=== PATIENT | male | born 1950 | race Caucasian/White ===

== ENCOUNTER 2016-04-13 11:54 | Inpatient (IN) | payer OTHER ==
--- NOTE | 2016-04-13 12:25 | CPEKG ---
Heart Rate: 116 RR Interval: 517 QRSD Interval: 92 QT Interval: 340 QTC Interval: 473 QRS [place]: 42 T Wave [place]: 185 EKG Severity - ABNORMAL ECG - EKG Impression: ATRIAL FIBRILLATION EKG Impression: PROBABLE LVH WITH SECONDARY REPOL ABNRM EKG Impression: ANTERIOR Q WAVES, POSSIBLY DUE TO LVH EKG Impression: new T-wave inversions laterally EKG Impression: similar to previous Electronically Signed By: Atul Yanez 13-Apr-2016 13:06:26
[2016-04-13 12:34] LABS: % IMMATURE GRANULYOCYTES 0.6 % (0.0-1.1); ABSOLUTE IMMATURE GRANULOCYTES 0.09 10^3/uL (0.00-0.10); ADD DIFF? NO; ADD MORPH? NO; ADD SCAN? NO; ATYPICAL LYMPHOCYTE FLAG 0 (0-99); FRAGMENT RBC FLAG 0 (0-99); HEMATOCRIT 28.8 % (40.0-51.0); LEFT SHIFT FLG 0 (0-99); LIPEMIA HEMOLYSIS FLAG 80 (0-99); MEAN CELL HEMOGLOBIN 34.5 pg (27.9-34.1); MEAN CELL HEMOGLOBIN CONCENTR. 31.3 g/dL (32.4-36.7); MEAN CELL VOLUME 110.3 fL (81.5-99.8); MEAN PLATELET VOLUME 9.2 fL (8.7-11.7); PLATELET CLUMPS FLAG 10 (0-99); PLATELET COUNT 193 10^3/uL (150-400); RED BLOOD CELL COUNT 2.61 10^6/uL (4.40-6.38); RED CELL DISTRIBUTION WIDTH 16.8 % (11.5-15.2)
[2016-04-13 12:44] LABS: ANION GAP 15 mEq/L (8-16); CARBON DIOXIDE 26 mEq/l (22-31); CHLORIDE 100 mEq/L (97-110); CREATININE 4.2 mg/dL (0.7-1.3); GLOMERULAR FILTRATION RATE 14; GLUCOSE 84 mg/dL (70-100); POTASSIUM 5.2 mEq/L (3.5-5.2); SODIUM 141 mEq/L (134-144)
[2016-04-13] MEDS ORDERED: CEFEPIME HCL 2 GM in D5W 100 ML IV ONE (12:58)
--- NOTE | 2016-04-13 13:03 | EDPHY ---
H & P Stated Complaint: dc from [facility] increased sob hypoxia today Time Seen by Provider: 04/13/16 12:43 HPI/ROS: CHIEF COMPLAINT: Shortness of breath, fatigue HISTORY OF PRESENT ILLNESS: The patient is a 66-year-old man who comes to the emergency department complaining of increased shortness of breath and fatigue. He has a history of recurrent Pseudomonas and extended spectrum beta lactamase E coli pneumonia. He returned home from rehab 3 weeks ago for the same where he had been on a 21 day course of meropenem. He typically wears 2 L of oxygen intermittently but 2 days ago turned up to 4 L because he was short of breath. No fevers. Mild cough. He also has a history of chronic immunodeficiency requiring intermittent IVIG, status post renal transplant secondary to polycystic kidney disease, atrial fibrillation, anemia, deconditioning and hypertension. He got dialyzed yesterday and they took off 2 L which is normal. He states that his blood pressure is always a little low after dialysis typically in the 90 systolic. Today here it is in the 80s. REVIEW OF SYSTEMS: Constitutional: denies: chills, fever, recent illness, recent injury EENTM: denies: blurred vision, double vision, nose congestion Respiratory: See HPI Cardiac: denies: chest pain, irregular heart rate, lightheadedness, palpitations Gastrointestinal/Abdominal: denies: abdominal pain, diarrhea, nausea, vomiting, blood streaked stools Genitourinary: denies: dysuria, frequency, hematuria, pain Musculoskeletal: denies: joint pain, muscle pain Skin: denies: lesions, rash, jaundice, bruising Neurological: denies: headache, numbness, paresthesia, tingling, dizziness, weakness Hematologic/Lymphatic: denies: blood clots, easy bleeding, easy bruising Immunologic/allergic: denies: HIV/AIDS, transplant EXAM: GENERAL: Well-appearing, well-nourished and in no acute distress. HEAD: Atraumatic, normocephalic. EYES: Pupils equal round and reactive to light, extraocular movements intact, sclera anicteric, conjunctiva are normal. ENT: TMs normal, nares patent, oropharynx clear without exudates. Moist mucous membranes. NECK: Normal range of motion, supple without lymphadenopathy or JVD. LUNGS: Rhonchi both bases HEART: Regular rate and rhythm without murmurs, rubs or gallops. ABDOMEN: Soft, nontender, normoactive bowel sounds. No guarding, no rebound. No masses appreciated. BACK: No CVA tenderness, no spinal tenderness, step-offs or deformities EXTREMITIES: Normal range of motion, no pitting or edema. No clubbing or cyanosis. NEUROLOGICAL: Cranial nerves II through XII grossly intact. Normal speech, normal gait. 5/5 strength, normal movement in all extremities, normal sensation PSYCH: Normal mood, normal affect. SKIN: Warm, dry, normal turgor, no visible rashes or lesions. 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, esrd - dialysis pt - Family History Significant Family History: No pertinent family hx - Social History Smoking Status: Never smoked Alcohol Use: Sober Drug Use: None Constitutional: Initial Vital Signs Temperature (C) 36.4 C 04/13/16 12:01 Heart Rate 113 H 04/13/16 12:01 Respiratory Rate 27 H 04/13/16 12:01 Blood Pressure 83/76 L 04/13/16 12:01 O2 Sat (%) 87 L 04/13/16 12:01 O2 Delivery Mode Nasal Cannula O2 (L/minute) 4 Allergies/Adverse Reactions: Iodinated Contrast Media - Oral and [Iodinated Contrast Media - IV Dye] Allergy (Severe, Verified 04/13/16 12:00) Dyspnea IODINE CONTACT DYE Allergy (Severe, Uncoded 06/12/14 16:49) Dyspnea Home Medications: Medication Instructions Recorded Levalbuterol 1.25 mg [Xopenex 1 vial IH Q8 PRN 11/02/12 1.25MG Neb (*)] Zafirlukast [Accolate 20 MG] 20 mg PO BID 11/02/12 predniSONE 5 mg PO DAILY 05/22/15 Dapsone [Dapsone 100 mg (*)] 100 mg PO HS 08/28/15 Metoprolol Tartrate [Lopressor 25 25 mg PO BID 08/28/15 mg (*)] Immun Glob G (IgG)/Gly/Iga 50+ 25 gm IJ Q30D 11/10/15 [Gamunex-C 5 Gram/50 ml Vial] Tiotropium Inhaler [Spiriva 18 mcg IH HS 11/10/15 Handihaler] Calcium Acetate [Phoslo (*)] 1,334 mg PO TIDMEAL #90 cap 12/08/15 Budesonide [Pulmicort 0.25MG/2Ml 0.25 mg IH BID 12/12/15 Neb (*)] Amiodarone HCl [Pacerone (*)] 200 mg PO HS 02/15/16 Darbepoetin Cas in Polysorbat 40 mcg IJ WE 04/13/16 [Aranesp] Diazepam [Valium 5 MG (*)] 5 mg PO HS PRN 04/13/16 Folic Acid/Vitamin B Comp W-C 1 each PO HS 04/13/16 [Dialyvite Tablet] Hypertonic Saline 7% 1 inh IH 5XD PRN 04/13/16 Levalbuterol Inhaler [Xopenex Hfa 2 puffs IH BID 04/13/16 Inhaler (*)] Mometasone/Formoterol [Dulera 200 1 puffs IH BID 04/13/16 Mcg/5 Mcg Inhaler] Sodium Polystyrene Sulf [Kionex 10 gm PO DAILY PRN 04/13/16 SPS Powder (*)] hydrOXYzine HCL [hydrOXYzine HCL 25 mg PO BID 04/13/16 (RX)] Medical Decision Making - Diagnostics EKG Interpretation: An EKG obtained and was read and documented in trace view. Please see trace view for full reading and report. Atrial fibrillation rate of 116, LVH with repolarization abnormality, similar to previous new T-wave inversions laterally Imaging: X-ray: chest x-ray was obtained. I viewed the images myself on the PACS system. My interpretation of the images is: Bilateral lower lobe infiltrates improved from previous. The radiologist interpretation is pending. ED Course/Re-evaluation: 1:20 p.m. I discussed the case with Ana who will accept the patient for Dr. Alber in the ICU. The patient is septic however he will not receive the full 30 per kilos bolus because of his fluid restrictions and dialysis status. He has responded well to 1 L and will hold here. I have also began antibiotics. Hospital service agrees with this plan. 2:30 p.m. I discussed the case at the bedside with Dr. Reese. We discussed central line placement. The patient is not yet finished his fluid bolus and he does seem to be responding. She would prefer to place a PICC line upstairs. Differential Diagnosis: Partial list of the Differential diagnosis considered include but were not limited to; pneumonia, sepsis, CHF, acute coronary disease and although unlikely based on the history and physical exam, I also considered bacteremia, endocarditis,. - Data Points Laboratory Results: Laboratory Results 04/13/16 12:19 04/13/16 12:19 04/13/16 04/13/16 04/13/16 13:09 12:19 12:18 WBC 14.21 H 10^3/uL (3.80-9.50) RBC 2.61 L 10^6/uL (4.40-6.38) Hgb 9.0 L g/dL (13.7-17.5) Hct 28.8 L % (40.0-51.0) MCV 110.3 H fL (81.5-99.8) MCH 34.5 H pg (27.9-34.1) MCHC 31.3 L g/dL (32.4-36.7) RDW 16.8 H % (11.5-15.2) Plt Count 193 10^3/uL (150-400) MPV 9.2 fL (8.7-11.7) Neut % (Auto) 61.0 % (39.3-74.2) Lymph % (Auto) 26.3 % (15.0-45.0) [place] % (Auto) 5.6 % (4.5-13.0) Eos % (Auto) 5.8 % (0.6-7.6) Baso % (Auto) 0.7 % (0.3-1.7) Nucleat RBC Rel Count 0.0 % (0.0-0.2) Absolute Neuts (auto) 8.65 H 10^3/uL (1.70-6.50) Absolute Lymphs (auto) 3.74 H 10^3/uL (1.00-3.00) Absolute Monos (auto) 0.80 10^3/uL (0.30-0.80) Absolute Eos (auto) 0.83 H 10^3/uL (0.03-0.40) Absolute Basos (auto) 0.10 10^3/uL (0.02-0.10) Absolute Nucleated RBC 0.00 10^3/uL (0-0.01) Immature Gran % 0.6 % (0.0-1.1) Immature Gran # 0.09 10^3/uL (0.00-0.10) PT 13.5 SEC (12.0-15.0) INR 1.04 (0.83-1.16) VBG Lactic Acid 2.2 H mmol/L (0.7-2.1) Sodium 141 mEq/L (134-144) Potassium 5.2 mEq/L (3.5-5.2) Chloride 100 mEq/L (97-110) Carbon Dioxide 26 mEq/l (22-31) Anion Gap 15 mEq/L (8-16) BUN 45 H mg/dL (7-23) Creatinine 4.2 H mg/dL (0.7-1.3) Estimated GFR 14 Glucose 84 mg/dL (70-100) Calcium 9.0 mg/dL (8.5-10.4) Phosphorus 5.1 H mg/dL (2.5-4.5) Medications Given: Discontinued Medications Cefepime HCl 2 gm/ Dextrose 100 mls @ 200 mls/hr IV EDNOW ONE PRN Reason: Protocol Stop: 04/13/16 13:27 Last Admin: 04/13/16 13:39 Dose: 100 mls Sodium Chloride (Ns) 1,000 mls @ 0 mls/hr IV ONCE ONE PRN Reason: Wide Open Stop: 04/13/16 13:35 Last Admin: 04/13/16 13:35 Dose: 1,000 mls Sodium Chloride (Ns *For Sepsis Order Set Only*) 1,769 ml IV EDNOW ONE Stop: 04/13/16 13:44 Last Admin: 04/13/16 13:57 Dose: 769 ml Departure - Departure Disposition: [facility] Inpatient Acute Clinical Impression: Chronic pneumonia, Severe sepsis with septic shock Condition: Fair
--- NOTE | 2016-04-13 13:10 | DX ---
Chest, PA and Lateral History: Dyspnea, cough, weakness Comparison: March 09, 2016 Findings: Bibasilar consolidation is again present and associated with what is likely bronchitis/bron chiectasis. A left pleural effusion and prior increased left lower lobe consolidation have significa ntly improved.. Interstitial changes in the lower lungs remain. Sparse vessels in each upper lung are consistent with underlying severe emphysema. Heart size is stable and mildly enlarged. The pulmonary vascularity is not plethoric. A double lumen right central venous catheter is present with tip overl sixto the cavoatrial junction region. Median sternotomy wires, valve replacement and CABG clips again overlie the heart. EKG leads overlie the chest. Impression: 1. Improved left lower lobe consolidation and pleural effusion. No acute pneumonia identified. 2. Suspect underlying lower lung zone pulmonary fibrosis and bronchitis. 3. Chronic severe emphysema.
[2016-04-13] MEDS ORDERED: NS 1,000 ML IV ONE (13:34)
[2016-04-13] MEDS ORDERED: NS 1,000 ML BAG *FOR SEPSIS ORDER SET ONLY IV ONE (13:43)
[2016-04-13] MEDS ORDERED: ONDANSETRON DISINTEGRATING 4 MG TAB PO PRN (14:02)
[2016-04-13] MEDS ORDERED: ACETAMINOPHEN 325 MG TAB PO PRN (14:02)
[2016-04-13] MEDS ORDERED: ONDANSETRON 4 MG/2 ML VIAL IVP PRN (14:02)
[2016-04-13 14:17] LABS: LACGHOST ORDER
[2016-04-13 14:22] LABS: INR 1.04 (0.83-1.16); PROTIME(PATIENT) 13.5 SEC (12.0-15.0)
[2016-04-13] MEDS ORDERED: ALTEPLASE 2 MG VIAL IVP PRN (14:47)
--- NOTE | 2016-04-13 15:19 | SOAPPROG ---
SOAP Progress Note Assessment/Plan: Assessment: 1)ESRD -anticipate next HD Friday but will assess daily for needs (hold tonight) -RIJ TDC for access 2)SOB on chronic hypoxic resp failulre -uses 4L O2 by NE chronically-> currently on 2l O2 by NE -recent prolonged admit for ESBL Ecoli and pseudomonas pneumonia- recent 21 day course of Meropenem -CXR stable- no acute change -rapid flu pending 3)hypotension -improved with IVF, lactate better 1.0 -infectious work up in progress, on sepsis protocol in ICU 4)Anemia of CKD -Hb at goal -on Aranesp weekly- will verify dose 5)Mild hyperkalemia- K 5.2 -follow labs- recheck tonight to ensure stable -renal diet 6)MBD -phos at goal, continue Ca Acetate binder 7)A fib 8)Hypogammaglobulinemia -receives monthly IVIG I discussed with hospitalist Marisol Vuong MD [facility] [phone] pager 04/13/16 16:01 Subjective: 66 M with ESRD (HD MWF), recent prolonged admission for ESBL E coli and pseudomonas pneumonia (21 day course of meropenem), prolonged LTAC stay through mid March. Now presents with sob, weakness, hypotension. Denies fevers, n/v, diarrhea. Did not eat much today. Had HD yesterday and reports "usual amount of fluid removed, " no issues on HD yesterday. Has RIJ TDC in place and denies any drainage from catheter, fevers. Using 4L O2 chronically at home- now on 2L. Had lactate 2.2 and was hypotensive in the ER and given IV fluids- improved now and lactate down to 1.0. He has h/o hypogammaglobulinemia and receives IVIG. Objective: Vital Signs Temp Pulse Resp BP Pulse Ox 36.6 C 96 16 92/47 L 95 04/13/16 14:00 04/13/16 14:00 04/13/16 14:00 04/13/16 14:00 04/13/16 14:00 04/12/16 04/13/16 04/14/16 05:59 05:59 05:59 Intake Total 1700 Balance 1700 PT 13.5 SEC (12.0-15.0) 02/04/17 12:19 INR 1.04 (0.83-1.16) 04/13/16 12:19 Physical Exam - Physical Exam General Appearance: no apparent distress, other (chronically ill) EENT: other (mmm) Neck: other (RIJ tunneled HD cath c/d/i) Respiratory: other (coarse bs bilat) Cardiac/Chest: regular rate, rhythm, other (no rub) Abdomen: normal bowel sounds, non-tender, soft Skin: warm/dry Extremities: other (no edema) Neuro/Psych: alert, oriented x 3 ICD10 Worksheet Patient Problems: Problems Problem Status Diagnosed Chronic Disease Mgmt/Transitional Care Acute Chronic pneumonia Acute ESBL (extended spectrum beta-lactamase) producing bacteria infection Acute 02/27 Hypotension Acute Lung infiltrate Acute Severe sepsis Acute Shortness of breath Acute VRE (vancomycin-resistant Enterococci) Acute 01/11/16 Anemia Acute CHF (congestive heart failure) Acute Chronic renal failure Acute Extended spectrum beta lactamase (ESBL) resistance Acute 02/15/16 Fever Acute History of pneumonia Acute Hypoxemia Acute Hypoxia Acute Mitral valve replaced Acute Palliative care encounter Acute Pneumonia Acute Pneumonia due to Pseudomonas Acute Renal failure Acute Renal transplant recipient Acute Sepsis Acute Weakness Acute
[2016-04-13] MEDS ORDERED: [UNRECOGNIZED DRUG - OTHER] IH PRN (15:36)
[2016-04-13] MEDS ORDERED: HEPARIN 10,000 UNIT/10 ML MDV IVP ONE (15:57)
[2016-04-13] MEDS ORDERED: HEPARIN 10,000 UNIT/10 ML MDV ONE (16:04)
--- NOTE | 2016-04-13 16:20 | GHP ---
[f rep st] HISTORY AND PHYSICAL DATE OF ADMISSION: 04/13/2016 CHIEF COMPLAINT: Septic shock. HISTORY OF PRESENT ILLNESS: The patient is a 66-year-old male with history of end-stage renal disease on dialysis, recurrent ESBL/pseudomonal pneumonia, bronchiectasis, who was recently hospitalized at [facility] from 02/25/2016 through 03/09/2016. At that time, he was treated for recurrent pneumonia and completed a 21-day course of meropenem with aggressive pulmonary therapy. He was then discharged to [facility]. He was discharged there on March 23 and states that he has been doing fairly well up until the last couple days. Over the past 2 days, he has had increased weakness. He has been coughing with loose yellow sputum, which is chronic for him. He does say he is having a little bit more sputum production. He had increased shortness of breath this morning when he was getting dressed. He denies fevers, chills, or sweats. No nausea, vomiting, diarrhea. No headache. No myalgias. He has had some dizziness. He has been more fatigued and sleeping more. Denies bleeding. Denies ill contacts. Has increased his oxygen to 4 L. Usually wears 2 at home. Denies chest pain. REVIEW OF SYSTEMS: I completed a 10-point review of systems. Negative except as noted in HPI. PAST MEDICAL HISTORY: 1. History of paroxysmal atrial fibrillation; was in normal sinus rhythm at last admission. Now recurrent. 2. End-stage renal disease on hemodialysis, Friday, Friday, and Friday. Last time Friday. 3. Recurrent ESBL/pseudomonal pneumonia. 4. Bronchiectasis. 5. Chronic hypoxemic respiratory failure. 6. Status post renal transplant. 7. Chronic immunodeficiency requiring intermittent IVIG. 8. Anemia of chronic disease. 9. Deconditioning. 10. Benign hypertension. 11. Dysphagia. 12. Esophagitis, mild dysmotility noted on esophagram February 2016. 13. Severe TR and [id number] pulmonary hypertension. PAST SURGICAL HISTORY: 1. Cardioversion for atrial fibrillation. 2. History of kidney transplant. 3. Mitral valve repair. FAMILY HISTORY: PCKD. SOCIAL HISTORY: Lives alone. Does not use alcohol, tobacco, or illicits. ALLERGIES: Iodine contrast. MEDICATIONS: 1. Prednisone 5 mg daily. 2. Hydroxyzine 25 mg b.i.d. 3. Zafirlukast 20 mg b.i.d. 4. Spiriva. 5. Sodium polystyrene. 6. Dulera 200/5 mcg 1 puff b.i.d. 7. Lopressor 25 mg b.i.d. 8. Xopenex inhalers. 9. Xopenex nebs p.r.n. 10. Gamunex q.30 days. 11. Dialyvite tablet daily. 12. Valium 5 mg q.h.s. p.r.n. 13. Darbepoetin 40 mcg weekly. 14. Dapsone 100 mg q.h.s. 15. Calcium acetate 1334 mg p.o. t.i.d. meals. 16. Pulmicort nebs b.i.d. 17. Amiodarone 200 mg at bedtime. PHYSICAL EXAM: VITAL SIGNS: Temperature at 36.4, blood pressure 75/42, now 92/ 47. Heart rate 96-113. Respirations 16-22. 95% on 4 L. GENERAL: Patient is ill-appearing, pale. No acute distress. HEENT: PERRLA. Conjunctival pallor. Oropharynx clear without exudate or erythema. CV: Irregular, irregular, with systolic murmur. LUNGS: decreased BS and rhonchi LL basei. ABDOMEN: Soft, mild tenderness right lower quadrant. : No Nath. MUSCULOSKELETAL: Moving all 4 extremities. Tunneled catheter with no surrounding erythema, purulence NEURO: 2-12 intact. PSYCH: Alert and oriented x3. Flat affect. LABS: WBC 14, hemoglobin 9, hematocrit 28, MCV 110, platelets 193. Coags within normal. Sodium 141, potassium 5.2, chloride 100, carbon dioxide 26, BUN 45, creatinine 4.2. Phos pending. UA pending. Influenza pending. DIAGNOSTIC DATA: Chest x-ray personally reviewed by me. Improved left lower lobe infiltrate. Small left-side pleural effusion. Emphysematous changes. Sternotomy wires. EKG is personally reviewed by me. Heart rate 116, AFib, LVH with repolarization. ASSESSMENT/PLAN: 1. Septic shock: elevated white count of 14, but afebrile. Possibly pulmonary source, but improved from prior. He recently completed 21-day course of meropenem in March. I will cover for HCAP, given recent hospitalization with vancomycin and meropenem with extended spectrum beta-lactamase history. Check influenza, UA. Denies diarrhea. Receiving IV fluids. A PICC line to be placed. Sepsis protocol. 2. Hypotension: infection vs. cardiac. Infectious plan as above. He now in a fib (NSR in 02/22). s/p cardioversion x 3, most recently Dec 2015. Amio-load 400mg BID, heparin gtt. Discussed with cards for SAMINA cardioversion. 3. End-stage renal disease: Nephrology consultation. Last dialysis on Friday , K okay. Continue Nephro-Dorina and PhosLo. Weekly darbepoetin. 4. Anemia of chronic disease: H and H is stable. 5.Paroxysmal atrial fibrillation: The patient was in normal sinus rhythm in February. Amio-load, hep gtt. Hold beta nat with hypotension. 6. History of bronchiectasis. Continue home inhalers. 7. History of renal transplant. Continue Dapsone, pred. Was tapered off Prograf with recurrent infections 8. Lactic acidosis: hypotension, repleting with IV fluids. 9. Chronic immunodeficiency: IgG pending 9. Diet: Renal. 10. Deep venous thrombosis prophylaxis: Subcu heparin. DISPOSITION: Patient warrants ICU admission with septic shock. IV fluids, IV antibiotics. /[id number]/MODL MTDD
[2016-04-13 16:31] LABS: % IMMATURE GRANULYOCYTES 0.4 % (0.0-1.1); ABSOLUTE IMMATURE GRANULOCYTES 0.04 10^3/uL (0.00-0.10); ADD DIFF? NO; ADD MORPH? NO; ADD SCAN? NO; ATYPICAL LYMPHOCYTE FLAG 0 (0-99); FRAGMENT RBC FLAG 0 (0-99); HEMATOCRIT 23.8 % (40.0-51.0); HEMOGLOBIN 7.4 g/dL (13.7-17.5); LEFT SHIFT FLG 0 (0-99); LIPEMIA HEMOLYSIS FLAG 80 (0-99); MEAN CELL HEMOGLOBIN 34.6 pg (27.9-34.1); MEAN CELL HEMOGLOBIN CONCENTR. 31.1 g/dL (32.4-36.7); MEAN CELL VOLUME 111.2 fL (81.5-99.8); MEAN PLATELET VOLUME 9.1 fL (8.7-11.7); PLATELET CLUMPS FLAG 0 (0-99); PLATELET COUNT 172 10^3/uL (150-400); RED BLOOD CELL COUNT 2.14 10^6/uL (4.40-6.38); RED CELL DISTRIBUTION WIDTH 16.8 % (11.5-15.2)
[2016-04-13 16:49] LABS: ANION GAP 12 mEq/L (8-16); CALCIUM 7.8 mg/dL (8.5-10.4); CARBON DIOXIDE 23 mEq/l (22-31); CHLORIDE 105 mEq/L (97-110); CREATININE 4.2 mg/dL (0.7-1.3); GLOMERULAR FILTRATION RATE 14; GLUCOSE 102 mg/dL (70-100); POTASSIUM 4.7 mEq/L (3.5-5.2); SODIUM 140 mEq/L (134-144)
--- NOTE | 2016-04-13 17:20 | IR ---
Imaging Guided Peripherally Inserted Central Catheter History: Renal failure, hypotension, sepsis. Technique: Following informed consent, the left arm was prepped and draped in sterile fashion. All el ements of maximal sterile barrier technique including cap, mask, sterile gown, sterile gloves, large sterile sheet, hand hygiene, and 2% chlorhexidine for cutaneous antisepsis, followed. Ultrasound guzman sducer was placed in sterile sleeve and sterile coupling gel was used. Ultrasound evaluation of poten tial access sites was performed. After successfully identifying a patent vessel of adequate size, 1% Xylocaine was used for local anesthetic. Ultrasound guidance was used to puncture the basilic vein w ith a 21-gauge needle. 0.018 measuring wire was passed centrally under fluoroscopic control. A skin n ick with scalpel blade was followed by removing the access needle. A 5.5 American peel-away sheath was followed by a 5-American double lumen central catheter, trimmed to 43 cm length. The tip of the cathete r was positioned centrally and the guidewire removed. AP fluoroscopic spot image was obtained in insp iration. The catheter irrigated easily. The hub of the catheter was secured to the skin using a StatL ock adhesive device, and a sterile dressing was applied. Fluoroscopy time in minutes: 0.1 . Estimated exposure in mGy: 1.4 . Findings: The tip of the central catheter terminates at the junction of the superior vena cava and th e right atrium. Tunneled right jugular dialysis catheter, sternotomy wires, metallic ring for mitral valve repair, and surgical clips overlie the heart. Bilateral pulmonary abnormalities are better disp layed on portable chest radiograph obtained previously today. Impression: 5-American double lumen peripherally inserted central catheter is ready to use. - - - - - - - - - - - - - - - - - - - - - - - - - - - - - - - - - - - - - - - - - (Cross-cutting measures: Current medications were listed in the medical record, including all known prescriptions, [id number] medications, herbal medications, and nutritional supplements. The pat ient does not smoke. ) IR call
[2016-04-13 17:50] LABS: APTT 35.7 SEC (23.0-38.0); INR 1.14 (0.83-1.16); PROTIME(PATIENT) 14.5 SEC (12.0-15.0)
[2016-04-13] MEDS: HEPARIN/DEXTROSE 500 ML IV SCH (18:03)
[2016-04-13] MEDS: MONTELUKAST SODIUM 10 MG TAB PO SCH (18:04)
[2016-04-13] MEDS: CALCIUM ACETATE 667 MG CAP PO SCH (18:04)
[2016-04-13] MEDS: MEROPENEM 500 MG in NS 100 ML IV SCH ×2 (18:04→19:48)
[2016-04-13 18:08] LABS: POTASSIUM 4.5 mEq/L (3.5-5.2)
[2016-04-13] MEDS ORDERED: HEPARIN 50,000 UNIT/10 ML VIAL ONE (20:00)
[2016-04-13] MEDS: TIOTROPIUM INHALER 18 MCG/DOSE 5 DOSE/MDI IH SCH (20:38)
[2016-04-13] MEDS: BUDESONIDE 0.25MG/2ML DEYVIAL (5/POUCH) IH SCH (20:38)
[2016-04-13] MEDS: LEVALBUTEROL INHALER 200 PUFFS/15 GM MDI IH SCH (20:40)
[2016-04-13] MEDS ORDERED: AMIODARONE HCL 200 MG TAB PO SCH (21:00)
[2016-04-13] MEDS ORDERED: VITAMIN B COMP W C PO SCH (21:00)
[2016-04-13] MEDS ORDERED: FOLIC ACID PO SCH (21:00)
[2016-04-13] MEDS: VANCOMYCIN 750 MG in D5W 150 ML IV SCH (21:32)
[2016-04-13] MEDS: AMIODARONE HCL 200 MG TAB PO SCH (21:34)
[2016-04-13] MEDS: hydrOXYzine HCL 25 MG TAB PO SCH (21:34)
[2016-04-13] MEDS: DAPSONE 100 MG TAB PO SCH (21:34)
[2016-04-13] MEDS: Mometasone/Formoterol [Dulera 200 Mcg/5 Mcg Inhaler] IH SCH (21:36)
[2016-04-13] MEDS ORDERED: HEPARIN 5,000 UNIT/0.5 ML SYR SC SCH (22:00)
[2016-04-13] MEDS: DIAZEPAM 5 MG TAB PO PRN (22:18)
[2016-04-14] MEDS: HEPARIN 10,000 UNIT/10 ML MDV IVP PRN ×2 (01:40→06:44)
[2016-04-14] MEDS ORDERED: NS 250 ML IV ONE (05:00)
[2016-04-14 05:31] LABS: HEMATOCRIT 21.7 % (40.0-51.0); MEAN CELL HEMOGLOBIN 34.9 pg (27.9-34.1); MEAN CELL HEMOGLOBIN CONCENTR. 30.9 g/dL (32.4-36.7); RED BLOOD CELL COUNT 1.92 10^6/uL (4.40-6.38); RED CELL DISTRIBUTION WIDTH 16.7 % (11.5-15.2)
[2016-04-14 05:40] LABS: HEMOGLOBIN 6.7 g/dL (13.7-17.5)
[2016-04-14 06:02] LABS: ANION GAP 14 mEq/L (8-16); CALCIUM 7.8 mg/dL (8.5-10.4); CARBON DIOXIDE 22 mEq/l (22-31); CHLORIDE 104 mEq/L (97-110); GLOMERULAR FILTRATION RATE 12; GLUCOSE 80 mg/dL (70-100); POTASSIUM 4.5 mEq/L (3.5-5.2); SODIUM 140 mEq/L (134-144)
[2016-04-14] MEDS: predniSONE 5 MG TAB PO SCH (09:04)
[2016-04-14] MEDS: CALCIUM ACETATE 667 MG CAP PO SCH ×3 (09:04→18:33)
[2016-04-14] MEDS: AMIODARONE HCL 200 MG TAB PO SCH ×2 (09:05→20:25)
[2016-04-14] MEDS: hydrOXYzine HCL 25 MG TAB PO SCH ×2 (09:05→20:25)
[2016-04-14] MEDS: MEROPENEM 500 MG in NS 100 ML IV SCH (09:05)
[2016-04-14] MEDS: BUDESONIDE 0.25MG/2ML DEYVIAL (5/POUCH) IH SCH ×2 (10:04→19:34)
[2016-04-14] MEDS: LEVALBUTEROL INHALER 200 PUFFS/15 GM MDI IH SCH ×2 (10:05→19:34)
[2016-04-14] MEDS: Mometasone/Formoterol [Dulera 200 Mcg/5 Mcg Inhaler] IH SCH ×2 (10:13→22:17)
--- NOTE | 2016-04-14 11:06 | SOAPPROG ---
SOAP Progress Note Assessment/Plan: Assessment: 1)ESRD- HD MWF schedule -next HD tomorrow (may bump to Friday depending on timing of cardioversion- we will work around cardiology schedule) -RI TDC for access 2)SOB on chronic hypoxic resp failulre -uses 4L O2 by [place] chronically-> currently on 4L O2 by [place] -recent prolonged admit for ESBL Ecoli and pseudomonas pneumonia- recent 21 day course of Meropenem -CXR stable- no acute change -rapid flu negative -?A fib related- plans for cardioversion/SAMINA in am by cardiology 3)hypotension -improved with IVF, lactate better 1.0 -infectious work up in progress, on sepsis protocol in ICU 4)Anemia of CKD -Hb dropped overnight without obvious bleeding (?dilutional from IVF)- getting PRBCs now -on Aranesp weekly- will verify dose in am from unit (I believe he has been on high dose) 5)Mild hyperkalemia- K 5.2 on admit -stable at 4.5 today -renal diet when taking po 6)MBD -continue Ca Acetate binder 7)A fib -plans for cardioversion/SAMINA in am 8)Hypogammaglobulinemia -receives monthly IVIG I discussed with hospitalist and RN Marisol Vuong MD [facility] [phone] pager 04/14/16 12:01 Subjective: Getting PRBCs right now. Feels weak but SOB better. BP still on lower side-80s- 90s. No fevers. On 4L 02 by [place] (baseline). Cardiology planning SAMINA and cardioversion tomorrow. Objective: Vital Signs Temp Pulse Resp BP Pulse Ox 36.4 C 97 21 H 91/46 L 93 04/14/16 00:00 04/14/16 10:21 04/14/16 10:21 04/14/16 09:00 04/14/16 10:21 Laboratory Results 04/14/16 04:55 04/14/16 04:55 04/13/16 04/14/16 04/15/16 05:59 05:59 05:59 Intake Total 3761.4 Balance 3761.4 PT 14.5 SEC (12.0-15.0) 04/13/16 17:33 INR 1.14 (0.83-1.16) 04/13/16 17:33 Physical Exam - Physical Exam General Appearance: alert, no apparent distress EENT: other (mmm) Neck: other (RIJ TDC) Respiratory: lungs clear Cardiac/Chest: irregularly irregular, other (no rub) Abdomen: normal bowel sounds, non-tender, soft Skin: warm/dry Extremities: other (no edema) Neuro/Psych: alert, oriented x 3 ICD10 Worksheet Patient Problems: Problems Problem Status Diagnosed Chronic Disease Mgmt/Transitional Care Acute Chronic pneumonia Acute ESBL (extended spectrum beta-lactamase) producing bacteria infection Acute 02/27 Hypotension Acute Lung infiltrate Acute Severe sepsis Acute Shortness of breath Acute VRE (vancomycin-resistant Enterococci) Acute 01/11/16 Anemia Acute CHF (congestive heart failure) Acute Chronic renal failure Acute Extended spectrum beta lactamase (ESBL) resistance Acute 02/15/16 Fever Acute History of pneumonia Acute Hypoxemia Acute Hypoxia Acute Mitral valve replaced Acute Palliative care encounter Acute Pneumonia Acute Pneumonia due to Pseudomonas Acute Renal failure Acute Renal transplant recipient Acute Sepsis Acute Weakness Acute
--- NOTE | 2016-04-14 11:14 | HOSPPROG ---
Hospitalist Progress Note Assessment/Plan: #Hypotension: initially thought infectious, rather think due to recurrent a fib. Flu negative. Blood cx, NGTD. Cont gentle IVFs #Recurrent atrial fib: PO amiodarone load, heparin gtt. Cards to do SAMINA- cardioversion tomorrow or Tues. #Chronic hypoxic resp failure: CXR improved from priors. Afebrile #ESRD: cont HD per renal #Anemia of chronic disease: H/H dropped today, but no e/o bleeding. Suspect hemoconcentrated at admission. Transfuse 1 unit RBC. Serial CBC #ESBL/Pseudomonal PNA: chronic, does seem acute infection. On Vanc/meropenem for now #h/o renal transplant: dapsone #Chronic immunodeficiency: intermittent IVIG. IgG level pending #Diet: renal #DVT ppx: SCDs #Disp: warrants inpatient admission with recurrent a fib, hypotension Subjective: denies any bleeding. No dizziness or SOB Objective: Vital Signs Temp Pulse Resp BP Pulse Ox 36.4 C 97 21 H 91/46 L 93 04/14/16 00:00 04/14/16 10:21 04/14/16 10:21 04/14/16 09:00 04/14/16 10:21 Laboratory Results 04/14/16 04:55 04/14/16 04:55 04/13/16 04/14/16 04/15/16 05:59 05:59 05:59 Intake Total 3761.4 Balance 3761.4 PT 14.5 SEC (12.0-15.0) 04/13/16 17:33 INR 1.14 (0.83-1.16) 04/13/16 17:33 - Physical Exam Constitutional: chronically ill appearing, other (pale) Eyes: PERRL Ears, Nose, Mouth, Throat: dry mucous membranes Cardiovascular: irregularly irregular Respiratory: no respiratory distress, rhonchi (Left lower base) Gastrointestinal: normoactive bowel sounds, soft, non-tender abdomen Genitourinary: no bladder fullness Skin: warm Musculoskeletal: full muscle strength Neurologic: AAOx3 Psychiatric: interacting appropriately, flat affect ICD10 Worksheet Patient Problems: Problems Problem Status Diagnosed Chronic Disease Mgmt/Transitional Care Acute Chronic pneumonia Acute ESBL (extended spectrum beta-lactamase) producing bacteria infection Acute 02/27 Hypotension Acute Lung infiltrate Acute Severe sepsis Acute Shortness of breath Acute VRE (vancomycin-resistant Enterococci) Acute 01/11/16 Anemia Acute CHF (congestive heart failure) Acute Chronic renal failure Acute Extended spectrum beta lactamase (ESBL) resistance Acute 02/15/16 Fever Acute History of pneumonia Acute Hypoxemia Acute Hypoxia Acute Mitral valve replaced Acute Palliative care encounter Acute Pneumonia Acute Pneumonia due to Pseudomonas Acute Renal failure Acute Renal transplant recipient Acute Sepsis Acute Weakness Acute
[2016-04-14] MEDS ORDERED: NS 1,000 ML IV SCH (11:15)
--- NOTE | 2016-04-14 11:21 | PDCARCONS ---
Cardiology Consult Reason for Consult: Atrial fibrillation Chief Complaint: Weakness and fatigue Requesting Physician: Hospitalists History of Present Illness: Patient is a 66 y/o male with multiple admissions to [facility] over the past several months, who presented yesterday with findings suggestive of septic shock ( hypotension and tachycardia). Further work up over night with belief that atrial fibrillation is the cause of the symptoms being noted. Uncertain on the duration of the arrhythmia at present. Heparin was started for CVA prophylaxis. Ongoing anemia (thought to be secondary to renal disease) and plans for haemodialysis tomorrow (he is a Mon/Wed/Fri scheduled patient). History of ESRD with aforementioned HD, but history of failed renal transplant, pneumonia, and MVr. No complaints of chest pains or pressure today. No PND or orthopnea. Awareness of arrhythmia with weakness and fatigue. Patient reports that he is feeling better today. Historically, the patient has had cardioversions for atrial fibrillation. [id number] score is 1 for age. History Information - Allergies/Home Medication List Allergies/Adverse Reactions: Iodinated Contrast Media - Oral and [Iodinated Contrast Media - IV Dye] Allergy (Severe, Verified 04/13/16 12:00) Dyspnea IODINE CONTACT DYE Allergy (Severe, Uncoded 06/12/14 16:49) Dyspnea Home Medications: Levalbuterol 1.25 mg [Xopenex 1.25MG Neb (*)] 1 vial IH Q8 PRN 11/02/12 [Last Taken 02/14/16 08:00] Zafirlukast [Accolate 20 MG] 20 mg PO BID 11/02/12 [Last Taken 04/13/16] predniSONE 5 mg PO DAILY 05/22/15 [Last Taken 04/13/16] Dapsone [Dapsone 100 mg (*)] 100 mg PO HS 08/28/15 [Last Taken 04/12/16] Metoprolol Tartrate [Lopressor 25 mg (*)] 25 mg PO BID 08/28/15 [Last Taken 06/24] Immun Glob G (IgG)/Gly/Iga 50+ [Gamunex-C 5 Gram/50 ml Vial] 25 gm IJ Q30D 11/09 [Last Taken 01/16/16] Tiotropium Inhaler [Spiriva Handihaler] 18 mcg IH HS 11/10/15 [Last Taken ] Budesonide [Pulmicort 0.25MG/2Ml Neb (*)] 0.25 mg IH BID 12/12/15 [Last Taken ] Amiodarone HCl [Pacerone (*)] 200 mg PO HS 02/15/16 [Last Taken 04/13/16] Darbepoetin Cas in Polysorbat [Aranesp] 40 mcg IJ WE 04/13/16 [Last Taken Unknown] Diazepam [Valium 5 MG (*)] 5 mg PO HS PRN 04/13/16 [Last Taken Unknown] Folic Acid/Vitamin B Comp W-C [Dialyvite Tablet] 1 each PO HS 04/13/16 [Last Taken 04/12/16] Hypertonic Saline 7% 1 inh IH 5XD PRN 04/13/16 [Last Taken 04/09/16] Levalbuterol Inhaler [Xopenex Hfa Inhaler (*)] 2 puffs IH BID 04/13/16 [Last Taken 04/13/16] Mometasone/Formoterol [Dulera 200 Mcg/5 Mcg Inhaler] 1 puffs IH BID 04/13/16 [ Last Taken 04/13/16] Sodium Polystyrene Sulf [Kionex SPS Powder (*)] 10 gm PO DAILY PRN 04/13/16 [ Last Taken Unknown] hydrOXYzine HCL [hydrOXYzine HCL (RX)] 25 mg PO BID 04/13/16 [Last Taken ] I have personally reviewed and updated: family history, medical history, social history, surgical history - Past Medical History atrial fibrillation, ESRD, pneumonia - Surgical History Additional surgical history: MVr and renal transplant - Family History Positive for: non-pertinent - Social History Smoking Status: Never smoked Alcohol Use: Sober Drug Use: None Cardiac History - Cardiac History Cardiac Risk Factors: age > 65, male Timing/Duration: Unsure Severity: moderate Severity Scale: 4 Modifying Factors: improves with: lying down, oxygen, rest Associated Symptoms: malaise, shortness of breath, weakness Age in Years: < 65 Sex: Male Congestive Heart Failure History: No Hypertension History: No Stroke/TIA/Thromboembolism History: No Vascular Disease History: No Diabetes Mellitus: No [id number] Score: 5 Physical Exam Temp Pulse Resp BP Pulse Ox 36.4 C 97 21 H 91/46 L 93 04/14/16 00:00 04/14/16 10:21 04/14/16 10:21 04/14/16 09:00 04/14/16 10:21 O2 (L/minute) 4 Constitutional: chronically ill appearing Eyes: PERRL Ears, Nose, Mouth, Throat: moist mucous membranes Cardiovascular: irregularly irregular, No JVD Peripheral Pulses: 2+: dorsalis-pedis (R), dorsalis-pedis (L) Respiratory: no respiratory distress, reduced air movement Gastrointestinal: normoactive bowel sounds Skin: warm, No erythema, No rash Musculoskeletal: full muscle strength Neurologic: AAOx3, sensation intact bilaterally, weakness, CN II-XII Intact Psychiatric: interacting appropriately Lab and Imaging 04/14/16 04:55 04/14/16 04:55 WBC 8.77 10^3/uL (3.80-9.50) 04/14/16 04:55 RBC 1.92 10^6/uL (4.40-6.38) L 04/14/16 04:55 Hgb 6.7 g/dL (13.7-17.5) L 04/14/16 04:55 Hct 21.7 % (40.0-51.0) L 04/14/16 04:55 MCV 113.0 fL (81.5-99.8) H 04/14/16 04:55 MCH 34.9 pg (27.9-34.1) H 04/14/16 04:55 MCHC 30.9 g/dL (32.4-36.7) L 04/14/16 04:55 RDW 16.7 % (11.5-15.2) H 04/14/16 04:55 Plt Count 165 10^3/uL (150-400) 04/14/16 04:55 MPV 9.1 fL (8.7-11.7) 04/13/16 16:20 Neut % (Auto) 57.2 % (39.3-74.2) 04/13/16 16:20 Lymph % (Auto) 29.4 % (15.0-45.0) 04/13/16 16:20 [place] % (Auto) 6.0 % (4.5-13.0) 04/13/16 16:20 Eos % (Auto) 6.6 % (0.6-7.6) 04/13/16 16:20 Baso % (Auto) 0.4 % (0.3-1.7) 04/13/16 16:20 Nucleat RBC Rel Count 0.0 % (0.0-0.2) 04/13/16 16:20 Absolute Neuts (auto) 5.25 10^3/uL (1.70-6.50) 04/13/16 16:20 Absolute Lymphs (auto) 2.70 10^3/uL (1.00-3.00) 04/13/16 16:20 Absolute Monos (auto) 0.55 10^3/uL (0.30-0.80) 04/13/16 16:20 Absolute Eos (auto) 0.61 10^3/uL (0.03-0.40) H 04/13/16 16:20 Absolute Basos (auto) 0.04 10^3/uL (0.02-0.10) 04/13/16 16:20 Absolute Nucleated RBC 0.00 10^3/uL (0-0.01) 04/13/16 16:20 Immature Gran % 0.4 % (0.0-1.1) 04/13/16 16:20 Immature Gran # 0.04 10^3/uL (0.00-0.10) 04/13/16 16:20 PT 14.5 SEC (12.0-15.0) 04/13/16 17:33 INR 1.14 (0.83-1.16) 04/13/16 17:33 APTT 35.7 SEC (23.0-38.0) 04/13/16 17:33 Heparin Anti-Xa, Unfract 0.17 IU/mL (0.32-0.67) L 04/14/16 04:55 ABG Lactic Acid 1.0 mmol/L (0.5-1.6) 04/13/16 14:40 VBG Lactic Acid 1.3 mmol/L (0.7-2.1) 04/13/16 16:23 Sodium 140 mEq/L (134-144) 04/14/16 04:55 Potassium 4.5 mEq/L (3.5-5.2) 04/14/16 04:55 Chloride 104 mEq/L (97-110) 04/14/16 04:55 Carbon Dioxide 22 mEq/l (22-31) 04/14/16 04:55 Anion Gap 14 mEq/L (8-16) 04/14/16 04:55 BUN 52 mg/dL (7-23) H 04/14/16 04:55 Creatinine 5.0 mg/dL (0.7-1.3) H 04/14/16 04:55 Estimated GFR 12 04/14/16 04:55 Glucose 80 mg/dL (70-100) 04/14/16 04:55 Calcium 7.8 mg/dL (8.5-10.4) L 04/14/16 04:55 Phosphorus 6.2 mg/dL (2.5-4.5) H D 04/14/16 04:55 Influenza A & B (PCR) NEGATIVE FOR FLU (NEGATIVE) 04/13/16 21:45 Patient ABO/Rh A POSITIVE 04/14/16 09:48 Antibody Screen NEGATIVE 04/14/16 09:48 Crossmatch IS Only See Detail 04/14/16 09:48 Visualized and Interpreted Chest x-ray results: Yes Chest X-ray Interpretation: no infiltrate, effusion Visualized and Interpreted EKG results: Yes EKG Interpretation: Positive for: other (atrial fibrillation with rapid ventricular response) Telemetry: atrial fibrillation A/P Assessment: Patient is a 66 y/o male with extensive past medical history, including failed renal transplant, ongoing ESRD with HD three times per week, anemia of chronic disease, MVr, pneumonia, pAF (in atrial fibrillation at present with heparin coverage and [id number] score of 1), but likely feeling as poorly as he does given past medical history with anemia. Initial thoughts were that the patient had "sepsis" give past history and admissions, but work up at present has moved away from that diagnosis, and is more centered on the atrial fibrillation noted. Plan: Would arrange for anesthesia guided sedation for SAMINA (to assess for thrombus/ clot) and possible cardioversion tomorrow Would continue heparin as at present Would continue PRBC for anemia (this would contribute to the atrial arrhythmia) Electrolyte replenishment/following to continue Further recommendations after testing completed tomorrow.
--- NOTE | 2016-04-14 12:25 | PDINTPN ---
[employer] Progress Note Assessment/Plan: Assessment: Fatigue: Likely due to anemia and AF. Chronic lung infection likely contributes , but he doesn't seem to have an acute infection. AF: Rate OK. On Heparin+amio ESRD: On HD Recurrent pneumonia: On Meropenem, Vanco. Seems to be near baseline Anemia: H/H down with hydration Plan: Transfuse PRBCs. Continue heparin, HD, amio, and antibiotics for now. Probably can stop Vanco tomorrow if cultures negative. May benefit from cardioversion, cardiology will consider SAMINA/DCCV tomorrow. 04/14/16 12:25 Subjective: Tirednes and mild dyspnea are unchanged, as is cough, which hs just slightly worse than it has been recently. Objective: Vital Signs Temp Pulse Resp BP Pulse Ox 36.4 C 75 25 H 94/50 L 92 04/14/16 00:00 04/14/16 12:00 04/14/16 12:00 04/14/16 12:00 04/14/16 12:00 Laboratory Results 04/14/16 04:55 04/14/16 04:55 04/13/16 04/14/16 04/15/16 05:59 05:59 05:59 Intake Total 3761.4 Balance 3761.4 PT 14.5 SEC (12.0-15.0) 04/13/16 17:33 INR 1.14 (0.83-1.16) 04/13/16 17:33 Physical Exam - Physical Exam General Appearance: alert, no apparent distress EENT: normal ENT inspection Neck: normal inspection Respiratory: crackles (left>right base) Cardiac/Chest: regular rate, rhythm, No edema Abdomen: normal bowel sounds, non-tender Skin: normal color, warm/dry Extremities: normal inspection Neuro/Psych: alert, normal mood/affect, oriented x 3 ICD10 Worksheet Patient Problems: Problems Problem Status Diagnosed Chronic Disease Mgmt/Transitional Care Acute Chronic pneumonia Acute ESBL (extended spectrum beta-lactamase) producing bacteria infection Acute 02/27 Hypotension Acute Lung infiltrate Acute Severe sepsis Acute Shortness of breath Acute VRE (vancomycin-resistant Enterococci) Acute 01/11/16 Anemia Acute CHF (congestive heart failure) Acute Chronic renal failure Acute Extended spectrum beta lactamase (ESBL) resistance Acute 02/15/16 Fever Acute History of pneumonia Acute Hypoxemia Acute Hypoxia Acute Mitral valve replaced Acute Palliative care encounter Acute Pneumonia Acute Pneumonia due to Pseudomonas Acute Renal failure Acute Renal transplant recipient Acute Sepsis Acute Weakness Acute
[2016-04-14 13:13] LABS: HEMATOCRIT 23.3 % (40.0-51.0); HEMOGLOBIN 7.3 g/dL (13.7-17.5)
--- NOTE | 2016-04-14 14:22 | GCON ---
[f rep st] CONSULTATION PULMONARY/CRITICAL CARE CONSULTATION DATE OF CONSULTATION: 04/13/2016 REFERRING PHYSICIAN: Sanjuana Campo MD REASON FOR CONSULTATION: Evaluation and management of septic shock, dyspnea and fatigue. HISTORY: The patient is a 66-year-old male with a history of end-stage renal disease on dialysis, wi th recurrent pseudomonal and E coli pneumonia with bronchiectasis, who has been hospitalized monthly over the last several months for pneumonias with parapneumonic effusions. He has also had recurrent atrial fibrillation and had been cardioverted. He was transferred on from [facility] to [facility]. He had been treated with meropenem for pneumonia. He was discharged from acute care on March 23, 2016 and felt he was doing fairly well until about 2 days ago when he started to have increased weakness. He has a chronic productive cough, and he thin ks that that is just a bit worse, with just a little bit more sputum production. He has a bit more d yspnea with exertion. He denies any fevers, chills or sweats, and has had no pain. He denies nausea or vomiting, and has no dysuria. PAST MEDICAL HISTORY: 1. End-stage renal disease, on hemodialysis Mondays, Wednesdays, and Fridays. 2. Recurrent pneumonias, including Pseudomonas, requiring nearly continuous antibiotics over the las t 4-5 months. He also has bronchiectasis and he has had multiple thoracenteses and several chest tub es on the left for parapneumonic effusions. 3. Chronic IgG deficiency requiring intermittent IVIG. 4. Anemia of chronic disease and chronic renal failure. 5. Paroxysmal atrial fibrillation. The patient has been cardioverted several times over the last se veral months. 6. Severe tricuspid regurgitation with pulmonary hypertension. MEDICATIONS: At time of admission, include prednisone, hydroxyzine, zafirlukast, Spiriva, Dulera, Lo pressor, Xopenex, Gamunex, Valium, darbepoetin, Dapsone, Pulmicort and amiodarone. ALLERGIES: Iodine. SOCIAL HISTORY: The patient lives alone. He does not smoke or drink. FAMILY HISTORY: Positive for polycystic kidney disease. REVIEW OF SYSTEMS: A 10-point review of systems adds nothing to the history of present illness. PHYSICAL EXAMINATION: GENERAL: The patient is awake, alert, and chronically ill appearing. VITAL S IGNS: His blood pressure is 92/47, it was 75/42 earlier, heart rate 96-110 and irregular, oxygen sat urations are 95% on 4 L of oxygen. He is afebrile. HEENT: Normocephalic and atraumatic. No icteru s. NECK: Trachea is midline. CHEST: He has left greater than right basal rales with decreased bill ath sounds throughout. CARDIAC: Irregularly irregular, without murmur. ABDOMEN: Soft and nontende r. Bowel sounds are present. EXTREMITIES: No clubbing, cyanosis, or edema. LABORATORY: White blood count is 14.2 with a hemoglobin of 9.0. Chemistry group shows a creatinine of 4.2, potassium of 5.2, with a phosphorus of 5.1. Venous lactate is 2.2. IMAGING: Shows improvement in the previously seen consolidation and pleural effusions, with fairly e xtensive chronic changes and emphysema still present. Images reviewed. ASSESSMENT AND PLAN: 1. Hypotension. The patient presents with hypotension, fatigue and an elevated white blood count co ncerning for sepsis. The patient has been given IV fluids, although not as vigorously as usual becau se of his end-stage renal disease, on dialysis. He has been started empirically on meropenem and van comycin for possible pneumonia, although his chest x-ray actually looks better than it has on any of the prior chest x-rays I have seen over the last several months. 2. Atrial fibrillation. The patient has return of atrial fibrillation with mild tachycardia. This could be contributing to his fatigue and shortness of breath. 3. End-stage renal disease. The patient is on hemodialysis. This will be continued. 4. Anemia. The patient's hemoglobin is in fairly typical range for him. This also could be contrib uting to his chronic dyspnea, but it seemed unlikely to contribute to his more acute symptoms. Monitor in the ICU and give fluids as needed for hypotension. Rate control will be used for his atri al fibrillation if necessary. He will be started on amiodarone. His antibiotics will be continued f or now. Cardiology will be consulted to determine if he might benefit from a DC cardioversion. /[id number]/MODL
[2016-04-14] MEDS: MONTELUKAST SODIUM 10 MG TAB PO SCH (18:33)
[2016-04-14] MEDS: TIOTROPIUM INHALER 18 MCG/DOSE 5 DOSE/MDI IH SCH (19:34)
[2016-04-14] MEDS: DAPSONE 100 MG TAB PO SCH (20:25)
[2016-04-14 20:43] LABS: HEMATOCRIT 24.9 % (40.0-51.0); HEMOGLOBIN 8.1 g/dL (13.7-17.5); MEAN CELL HEMOGLOBIN 34.5 pg (27.9-34.1); MEAN CELL HEMOGLOBIN CONCENTR. 32.5 g/dL (32.4-36.7); RED BLOOD CELL COUNT 2.35 10^6/uL (4.40-6.38); RED CELL DISTRIBUTION WIDTH 18.6 % (11.5-15.2)
[2016-04-14] MEDS: NEPHROVITE FOLIC ACID/VIT B&C 1 TAB PO SCH (21:44)
[2016-04-14] MEDS: DIAZEPAM 5 MG TAB PO PRN (22:24)
[2016-04-15 04:08] LABS: ANION GAP 12 mEq/L (8-16); CALCIUM 7.7 mg/dL (8.5-10.4); CARBON DIOXIDE 20 mEq/l (22-31); CHLORIDE 105 mEq/L (97-110); CREATININE 5.8 mg/dL (0.7-1.3); GLOMERULAR FILTRATION RATE 10; GLUCOSE 96 mg/dL (70-100); POTASSIUM 4.9 mEq/L (3.5-5.2); SODIUM 137 mEq/L (134-144)
[2016-04-15 04:36] LABS: HEMATOCRIT 22.5 % (40.0-51.0); HEMOGLOBIN 7.2 g/dL (13.7-17.5); MEAN CELL HEMOGLOBIN 34.4 pg (27.9-34.1); MEAN CELL VOLUME 107.7 fL (81.5-99.8); RED BLOOD CELL COUNT 2.09 10^6/uL (4.40-6.38); RED CELL DISTRIBUTION WIDTH 18.5 % (11.5-15.2)
[2016-04-15] MEDS ORDERED: NS 1,000 ML IV SCH (06:00)
[2016-04-15] MEDS: CALCIUM ACETATE 667 MG CAP PO SCH ×3 (08:26→19:25)
[2016-04-15] MEDS: AMIODARONE HCL 200 MG TAB PO SCH ×2 (08:27→20:20)
[2016-04-15] MEDS: hydrOXYzine HCL 25 MG TAB PO SCH ×2 (08:27→20:21)
[2016-04-15] MEDS: predniSONE 5 MG TAB PO SCH (08:28)
[2016-04-15] MEDS: MEROPENEM 500 MG in NS 100 ML IV SCH (09:59)
[2016-04-15] MEDS: HEPARIN/DEXTROSE 500 ML IV SCH (10:01)
[2016-04-15] MEDS: BUDESONIDE 0.25MG/2ML DEYVIAL (5/POUCH) IH SCH ×2 (10:02→20:39)
[2016-04-15] MEDS: Mometasone/Formoterol [Dulera 200 Mcg/5 Mcg Inhaler] IH SCH ×2 (10:03→20:54)
[2016-04-15] MEDS: LEVALBUTEROL INHALER 200 PUFFS/15 GM MDI IH SCH ×2 (10:03→20:42)
--- NOTE | 2016-04-15 11:21 | SOAPPROG ---
SOAP Progress Note Assessment/Plan: Assessment/Plan: ESRD: on HD MWF. - Will plan HD today per routine. - If not able to schedule around SAMINA, can be delayed until tomorrow if needed. NAS: continue calcium acetate with meals. Anemia: pt gets epo with HD. Hypotension: currently stable, evaluation afib, possible cardioversion today. Subjective: No acute events overnight. Pt states he is feeling fine overall, breathing feels stable, has no complaints. Plan for SAMINA and possible cardioversion some time today. Objective: Vital Signs Temp Pulse Resp BP Pulse Ox 36.4 C 93 18 101/69 94 04/15/16 08:00 04/15/16 08:00 04/15/16 08:00 04/15/16 08:00 04/15/16 08:00 Laboratory Results 04/15/16 03:30 04/15/16 03:30 04/14/16 04/15/16 04/16/16 05:59 05:59 05:59 Intake Total 3761.4 2995 Balance 3761.4 2995 PT 14.5 SEC (12.0-15.0) 04/13/16 17:33 INR 1.14 (0.83-1.16) 04/13/16 17:33 General: alert and oriented, no acute distress Eyes: EOMI, PERRL OP: Clear CV: RRR Resp: nonlabored respirations on NC Abd: Soft, NT/ND Ext: trace edema BLE Neuro: CN II-XII grossly intact, no asterixis Psych: cooperative, appropriate mood and affect Access: R IJ tunneled catheter ICD10 Worksheet Patient Problems: Problems Problem Status Diagnosed Chronic Disease Mgmt/Transitional Care Acute Chronic pneumonia Acute ESBL (extended spectrum beta-lactamase) producing bacteria infection Acute 02/27 Hypotension Acute Lung infiltrate Acute Severe sepsis Acute Shortness of breath Acute VRE (vancomycin-resistant Enterococci) Acute 01/11/16 Anemia Acute CHF (congestive heart failure) Acute Chronic renal failure Acute Extended spectrum beta lactamase (ESBL) resistance Acute 02/15/16 Fever Acute History of pneumonia Acute Hypoxemia Acute Hypoxia Acute Mitral valve replaced Acute Palliative care encounter Acute Pneumonia Acute Pneumonia due to Pseudomonas Acute Renal failure Acute Renal transplant recipient Acute Sepsis Acute Weakness Acute
--- NOTE | 2016-04-15 12:55 | SOAPPROG ---
SOAP Progress Note Assessment/Plan: Assessment: Weakness/failure to thrive. In part chronic secondary to his multiple medical problems. Atrial fibrillation appears to be playing a role at this point in time. Atrial fibrillation. Cardioversion is being considered. He has had this in the past. On anticoagulation with heparin. Chronic broncho-pneumonia with bronchiectasis, postinflammatory pulmonary fibrosis and pleural disease. Pulmonary status appears to be stable at this point in time, with a chest x-ray that looks better than it has in the past. Changes however do persist. There is no definite evidence of a new acute pneumonia. Sputums not requested on this admission. COPD. No evidence of exacerbation. On inhaled therapies and montelukast. Hypotension: Multifactorial. I do not believe that sepsis is playing a significant role. On appropriate antibiotics. Has received IV fluids. Blood pressure is now normal. Chronic renal failure. On hemodialysis. Chronic anemia, immunodeficiency, etc. Plan: Continue care. Continue antibiotics for now but these can likely be narrowed or discontinued altogether in the near future. Hemodialysis will be continued. Cardioversion per Cardiology. Follow CBC and laboratory values, chest x-ray intermittently. Subjective: Complains of some pulmonary congestion, mild cough. Otherwise doing okay. Feels weak. Objective: Vital Signs Temp Pulse Resp BP Pulse Ox 36.8 C 96 18 112/87 H 96 04/15/16 12:00 04/15/16 12:00 04/15/16 12:00 04/15/16 12:00 04/15/16 12:00 Laboratory Results 04/15/16 03:30 04/15/16 03:30 04/14/16 04/15/16 04/16/16 05:59 05:59 05:59 Intake Total 3761.4 2995 Balance 3761.4 2995 PT 14.5 SEC (12.0-15.0) 04/13/16 17:33 INR 1.14 (0.83-1.16) 04/13/16 17:33 Laboratory Tests 04/15/16 10:05 Heparin Anti-Xa, Unfract 0.38 Physical Exam - Physical Exam General Appearance: alert, no apparent distress, thin, other (Up in chair, quite pale) EENT: PERRL/EOMI, other (Oxygen in place at 4 L by nasal cannula) Neck: normal inspection Respiratory: decreased breath sounds, crackles (At left base with coarseness in some mild congestion), No rhonchi Cardiac/Chest: irregularly irregular (Rate 105-110) Abdomen: normal bowel sounds, non-tender, soft Skin: warm/dry, pallor Lymphatic: no adenopathy Extremities: No pedal edema Neuro/Psych: no motor/sensory deficits, motor weakness (Generalized), No cognition abnormalities ICD10 Worksheet Patient Problems: Problems Problem Status Diagnosed Chronic Disease Mgmt/Transitional Care Acute Chronic pneumonia Acute ESBL (extended spectrum beta-lactamase) producing bacteria infection Acute 02/27 Hypotension Acute Lung infiltrate Acute Severe sepsis Acute Shortness of breath Acute VRE (vancomycin-resistant Enterococci) Acute 01/11/16 Anemia Acute CHF (congestive heart failure) Acute Chronic renal failure Acute Extended spectrum beta lactamase (ESBL) resistance Acute 02/15/16 Fever Acute History of pneumonia Acute Hypoxemia Acute Hypoxia Acute Mitral valve replaced Acute Palliative care encounter Acute Pneumonia Acute Pneumonia due to Pseudomonas Acute Renal failure Acute Renal transplant recipient Acute Sepsis Acute Weakness Acute
--- NOTE | 2016-04-15 13:03 | HOSPPROG ---
Hospitalist Progress Note Assessment/Plan: 66 yo M with hx of ESBL/pseudomonal pna as well as esrd and recurrent a fib presenting with hypotension # fatige/malaise: in setting of hypotension and thought to be related to either a fib and anemia versus less likely infection. Improved slightly. Tx as below. # recurrent a fib: thought to be contributing to hypotension, cardiology consulted and considering CV. Personally reviewed telemetry monitoring and rates currently largely in 90s in a fib. Treated with amiodarone oral at this time. # anemia of ckd: h/h remain low but relatively stable, has been transfused 1 unit prbc during this hospitalization # ESRD: continue HD, renal following # ESBL/pseudomonal pna: cxr personally reviewed and bilateral infiltrates appear improved from prior, has been started on vanc/merrem for possible HCAP but this seems less likely and likely can dc or tailor abx once cultures are complete. ID to evaluate. 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 continue dapsone # hypogammaglobulinemia: intermittent IVIG # chronic hypoxic respiratory failure: currently requiring 4L of o2 to maintain sats in 90s, at baseline # dispo: IP status, multiple active medical issues requiring complex medical decision making > 35 min spent in care of this patient more than half in face to face care of patient Subjective: no significant overnight events, patient still fatigued but less so than before, no real pain, still with cough but not worse than prior Objective: Vital Signs Temp Pulse Resp BP Pulse Ox 36.8 C 96 18 112/87 H 96 04/15/16 12:00 04/15/16 12:00 04/15/16 12:00 04/15/16 12:00 04/15/16 12:00 Laboratory Results 04/15/16 03:30 04/15/16 03:30 04/14/16 04/15/16 04/16/16 05:59 05:59 05:59 Intake Total 3761.4 2995 Balance 3761.4 2995 PT 14.5 SEC (12.0-15.0) 04/13/16 17:33 INR 1.14 (0.83-1.16) 04/13/16 17:33 awake alert anicteric op clear irreg irreg no mrg cta b soft nt nd no cce warm dry well perfused oriented appropriate ICD10 Worksheet Patient Problems: Problems Problem Status Diagnosed Chronic Disease Mgmt/Transitional Care Acute Chronic pneumonia Acute ESBL (extended spectrum beta-lactamase) producing bacteria infection Acute 02/27 Hypotension Acute Lung infiltrate Acute Severe sepsis Acute Shortness of breath Acute VRE (vancomycin-resistant Enterococci) Acute 01/11/16 Anemia Acute CHF (congestive heart failure) Acute Chronic renal failure Acute Extended spectrum beta lactamase (ESBL) resistance Acute 02/15/16 Fever Acute History of pneumonia Acute Hypoxemia Acute Hypoxia Acute Mitral valve replaced Acute Palliative care encounter Acute Pneumonia Acute Pneumonia due to Pseudomonas Acute Renal failure Acute Renal transplant recipient Acute Sepsis Acute Weakness Acute
[2016-04-15] MEDS ORDERED: PROPOFOL/EMULSION 500 MG/50 ML BOTTLE IV ONE ×2 (14:31→14:32)
--- NOTE | 2016-04-15 14:51 | PDTEE1 ---
SAMINA Cardioversion Procedure Procedure: Electrical Cardioversion, Transesophageal Echo Indications: Atrial Fibrillation Consent: Signed and in Chart Anticoagulation: Heparin Procedural Details: Pads were placed in anterior-posterior position. SAMINA probe was advanced and standard images obtained. There is no evidence of left atrial or left atrial appendage thrombus. Synchronized cardioversion attempt #1: 200J Results: Normal sinus rhythm Conclusions: Successful Cardioversion Patient Problems: Problems Problem Status Diagnosed Chronic Disease Mgmt/Transitional Care Acute Chronic pneumonia Acute ESBL (extended spectrum beta-lactamase) producing bacteria infection Acute 02/27 Hypotension Acute Lung infiltrate Acute Severe sepsis Acute Shortness of breath Acute VRE (vancomycin-resistant Enterococci) Acute 01/11/16 Anemia Acute CHF (congestive heart failure) Acute Chronic renal failure Acute Extended spectrum beta lactamase (ESBL) resistance Acute 02/15/16 Fever Acute History of pneumonia Acute Hypoxemia Acute Hypoxia Acute Mitral valve replaced Acute Palliative care encounter Acute Pneumonia Acute Pneumonia due to Pseudomonas Acute Renal failure Acute Renal transplant recipient Acute Sepsis Acute Weakness Acute
--- NOTE | 2016-04-15 15:33 | SOAPPROG ---
SOAP Progress Note Assessment/Plan: Assessment: He presents with symptoms of fatigue. This is likely multifactorial related to his anemia, chronic pulmonary disease and possibly an underlying pneumonia. Additionally, he is found to be back in atrial fibrillation. As an outpatient he has been treated with low-dose amiodarone at 200 mg daily. He has not been taking systemic anticoagulation. Plan: 1. He will continue with IV heparin. 2. I have started him on Coumadin 5 mg daily. 3. We will plan for a SAMINA/cardioversion today. 4. We have increased his amiodarone up to 400 mg twice daily. We will plan to continue to load him for the next several weeks Then decrease the dose back down to 200 mg daily. 5. If he has recurrent atrial fibrillation, we will need to consider an alternate treatment strategy up to and including possible referral for ablation. 04/15/16 15:35 Subjective: Patient was seen and examined. Chart was reviewed. This is my 1st day on service. He continues to complain of fatigue. He denies chest discomfort and significant dyspnea. He has had no edema, orthopnea or PND. He is currently on broad-spectrum antibiotics for a possible pneumonia. He remains in rate controlled atrial fibrillation. Objective: Vital Signs Temp Pulse Resp BP Pulse Ox 36.9 C 63 22 H 101/50 L 92 04/15/16 14:36 04/15/16 14:57 04/15/16 14:57 04/15/16 14:57 04/15/16 14:57 Laboratory Results 04/15/16 03:30 04/15/16 03:30 04/14/16 04/15/16 04/16/16 05:59 05:59 05:59 Intake Total 3761.4 2995 Balance 3761.4 2995 PT 14.5 SEC (12.0-15.0) 04/13/16 17:33 INR 1.14 (0.83-1.16) 04/13/16 17:33 Physical Exam - Physical Exam General Appearance: WD/WN, no apparent distress, thin Neck: full range of motion Respiratory: lungs clear Cardiac/Chest: irregularly irregular Peripheral Pulses: 2+: carotid (R), carotid (L) ICD10 Worksheet Patient Problems: Problems Problem Status Diagnosed Chronic Disease Mgmt/Transitional Care Acute Chronic pneumonia Acute ESBL (extended spectrum beta-lactamase) producing bacteria infection Acute 02/27 Hypotension Acute Lung infiltrate Acute Severe sepsis Acute Shortness of breath Acute VRE (vancomycin-resistant Enterococci) Acute 01/11/16 Anemia Acute CHF (congestive heart failure) Acute Chronic renal failure Acute Extended spectrum beta lactamase (ESBL) resistance Acute 02/15/16 Fever Acute History of pneumonia Acute Hypoxemia Acute Hypoxia Acute Mitral valve replaced Acute Palliative care encounter Acute Pneumonia Acute Pneumonia due to Pseudomonas Acute Renal failure Acute Renal transplant recipient Acute Sepsis Acute Weakness Acute
[2016-04-15] MEDS ORDERED: HEPARIN 50,000 UNIT/10 ML VIAL ONE (18:49)
[2016-04-15] MEDS: VANCOMYCIN 750 MG in D5W 150 ML IV SCH (19:25)
[2016-04-15] MEDS: WARFARIN SODIUM 5 MG TAB PO SCH (19:25)
[2016-04-15] MEDS: MONTELUKAST SODIUM 10 MG TAB PO SCH (19:25)
[2016-04-15] MEDS: DAPSONE 100 MG TAB PO SCH (20:20)
[2016-04-15] MEDS: NEPHROVITE FOLIC ACID/VIT B&C 1 TAB PO SCH (20:21)
[2016-04-15] MEDS: TIOTROPIUM INHALER 18 MCG/DOSE 5 DOSE/MDI IH SCH (20:43)
[2016-04-15] MEDS: guaiFENesin 600 MG TAB.ER PO SCH (21:58)
[2016-04-16] MEDS: HEPARIN/DEXTROSE 500 ML IV SCH ×2 (02:48→18:32)
[2016-04-16] MEDS: LEVALBUTEROL 1.25 MG/3 ML DEYVIAL IH PRN ×2 (05:59→17:17)
[2016-04-16 07:00] LABS: HEMATOCRIT 19.9 % (40.0-51.0); MEAN CELL HEMOGLOBIN 34.6 pg (27.9-34.1); MEAN CELL HEMOGLOBIN CONCENTR. 32.2 g/dL (32.4-36.7); MEAN CELL VOLUME 107.6 fL (81.5-99.8); RED BLOOD CELL COUNT 1.85 10^6/uL (4.40-6.38); RED CELL DISTRIBUTION WIDTH 17.9 % (11.5-15.2)
[2016-04-16 07:04] LABS: HEMOGLOBIN 6.4 g/dL (13.7-17.5)
[2016-04-16 07:06] LABS: INR 1.14 (0.83-1.16); PROTIME(PATIENT) 14.5 SEC (12.0-15.0)
[2016-04-16 07:22] LABS: CALCIUM 7.5 mg/dL (8.5-10.4); CARBON DIOXIDE 23 mEq/l (22-31); CHLORIDE 103 mEq/L (97-110); CREATININE 3.5 mg/dL (0.7-1.3); GLOMERULAR FILTRATION RATE 18; GLUCOSE 76 mg/dL (70-100); SODIUM 135 mEq/L (134-144)
[2016-04-16 07:25] LABS: ANION GAP 9 mEq/L (8-16); POTASSIUM 4.5 mEq/L (3.5-5.2)
[2016-04-16] MEDS: CALCIUM ACETATE 667 MG CAP PO SCH ×3 (07:44→18:30)
[2016-04-16] MEDS: BUDESONIDE 0.25MG/2ML DEYVIAL (5/POUCH) IH SCH ×2 (08:15→21:46)
[2016-04-16] MEDS: LEVALBUTEROL INHALER 200 PUFFS/15 GM MDI IH SCH ×2 (08:16→21:48)
[2016-04-16] MEDS: Mometasone/Formoterol [Dulera 200 Mcg/5 Mcg Inhaler] IH SCH ×2 (08:16→20:32)
[2016-04-16] MEDS: guaiFENesin 600 MG TAB.ER PO SCH ×2 (08:42→21:42)
[2016-04-16] MEDS: AMIODARONE HCL 200 MG TAB PO SCH ×2 (08:43→21:41)
[2016-04-16] MEDS: predniSONE 5 MG TAB PO SCH (08:43)
[2016-04-16] MEDS: MEROPENEM 500 MG in NS 100 ML IV SCH (08:44)
[2016-04-16] MEDS: hydrOXYzine HCL 25 MG TAB PO SCH ×2 (08:44→21:42)
--- NOTE | 2016-04-16 09:00 | CPEKG ---
Heart Rate: 66 RR Interval: 909 P-R Interval: 132 QRSD Interval: 102 QT Interval: 452 QTC Interval: 474 P [place]: 90 QRS [place]: 21 T Wave [place]: 84 EKG Severity - OTHERWISE NORMAL ECG - EKG Impression: SINUS RHYTHM EKG Impression: LOW VOLTAGE IN FRONTAL LEADS Electronically Signed By: Jan Cohen 16-Apr-2016 13:16:17
--- NOTE | 2016-04-16 09:25 | SOAPPROG ---
TISH Progress Note Assessment/Plan: Assessment: He presents with symptoms of fatigue. This is likely multifactorial related to his anemia, chronic pulmonary disease and possibly an underlying pneumonia. Additionally, he is found to be back in atrial fibrillation. As an outpatient he has been treated with low-dose amiodarone at 200 mg daily. He has not been taking systemic anticoagulation. Yesterday he underwent a SAMINA/cardioversion. He appears to be maintaining sinus rhythm. He was given a single dose of Coumadin. He remains on systemic anticoagulation with heparin. Plan: 1. We will plan to continue heparin and Coumadin. His heparin should be maintained until his INR is therapeutic. Unfortunately, in light of his renal failure, he is not a candidate for an alternate form of bridging anticoagulation with the exception of heparin. 2. We will continue his amiodarone 400 mg twice daily for the next several weeks. At that point, we will likely reduce his amiodarone down to 200 mg daily and observe for recurrence of atrial arrhythmias. 3. I will defer to his pulmonary critical care team regarding management of suspected pneumonia. 04/16/16 09:23 Subjective: He states that he has been feeling better today. He has a little more energy. He notes no chest pain, palpitations or significant dyspnea. He appears to be maintaining sinus rhythm following his SAMINA/cardioversion which was done yesterday. Objective: Vital Signs Temp Pulse Resp BP Pulse Ox 36.4 C 67 20 105/57 L 96 04/16/16 04:00 04/16/16 08:24 04/16/16 08:24 04/16/16 08:24 04/16/16 08:24 Laboratory Results 04/16/16 06:30 04/16/16 06:30 04/15/16 04/16/16 04/17/16 05:59 05:59 05:59 Intake Total 2995 2277.8 Balance 2995 2277.8 PT 14.5 SEC (12.0-15.0) 04/16/16 06:30 INR 1.14 (0.83-1.16) 04/16/16 06:30 Physical Exam - Physical Exam General Appearance: WD/WN, no apparent distress Neck: non-tender Respiratory: decreased breath sounds, No crackles, No rales, No rhonchi Cardiac/Chest: regular rate, rhythm, systolic murmur (1/6 systolic ejection murmur left sternal border) Peripheral Pulses: 2+: carotid (R), carotid (L) Abdomen: non-tender Neuro/Psych: alert, normal mood/affect, oriented x 3 ICD10 Worksheet Patient Problems: Problems Problem Status Diagnosed Chronic Disease Mgmt/Transitional Care Acute Chronic pneumonia Acute ESBL (extended spectrum beta-lactamase) producing bacteria infection Acute 02/27 Hypotension Acute Lung infiltrate Acute Severe sepsis Acute Shortness of breath Acute VRE (vancomycin-resistant Enterococci) Acute 01/11/16 Anemia Acute CHF (congestive heart failure) Acute Chronic renal failure Acute Extended spectrum beta lactamase (ESBL) resistance Acute 02/15/16 Fever Acute History of pneumonia Acute Hypoxemia Acute Hypoxia Acute Mitral valve replaced Acute Palliative care encounter Acute Pneumonia Acute Pneumonia due to Pseudomonas Acute Renal failure Acute Renal transplant recipient Acute Sepsis Acute Weakness Acute
--- NOTE | 2016-04-16 09:44 | SOAPPROG ---
SOAP Progress Note Assessment/Plan: Assessment: Weakness/failure to thrive. In part chronic secondary to his multiple medical problems. Atrial fibrillation was contributing. In normal sinus rhythm now sides cardioversion yesterday. Atrial fibrillation. Cardioversion successfully yesterday. In normal sinus rhythm. Amiodarone increased.. On anticoagulation with heparin, started Coumadin yesterday. Chronic broncho-pneumonia with bronchiectasis, postinflammatory pulmonary fibrosis and pleural disease. Pulmonary status appears to be stable at this point in time, with a chest x-ray that is improved compared to the past. Changes however do persist. There is no definite evidence of a new acute pneumonia. Sputums not requested on this admission. COPD. No evidence of exacerbation. On inhaled therapies and montelukast. Hypotension: Multifactorial. I do not believe that sepsis is playing a role. On broad-spectrum antibiotics. Has received IV fluids. Blood pressure is now normal. Chronic renal failure. On hemodialysis. Chronic anemia, immunodeficiency, etc. Plan: Continue care. Continue antibiotics for now but these can likely be narrowed or discontinued altogether in the near future. Hemodialysis will be continued. Cont Heparin, Coumadin. Follow CBC and laboratory values, chest x- ray intermittently. Subjective: . Stronger. Wants to go home. Feels better, stronger, wants to go home. He has a good cough, bringing up occasional yellow sputum. Objective: Vital Signs Temp Pulse Resp BP Pulse Ox 36.4 C 67 20 105/57 L 96 04/16/16 04:00 04/16/16 08:24 04/16/16 08:24 04/16/16 08:24 04/16/16 08:24 Laboratory Results 04/16/16 06:30 04/16/16 06:30 04/15/16 04/16/16 04/17/16 05:59 05:59 05:59 Intake Total 2995 2277.8 Balance 2995 2277.8 PT 14.5 SEC (12.0-15.0) 04/16/16 06:30 INR 1.14 (0.83-1.16) 04/16/16 06:30 Physical Exam - Physical Exam General Appearance: alert, no apparent distress EENT: other (Nasal cannula at 4 L) Neck: normal inspection Respiratory: decreased breath sounds (At bases), rales (Primarily at the left base with some E to a changes, some rales on the right), No normal breath sounds , No respiratory distress, No wheezing Cardiac/Chest: regular rate, rhythm, systolic murmur Abdomen: normal bowel sounds, non-tender, soft Skin: warm/dry, pallor Extremities: pedal edema (Trace) Neuro/Psych: no motor/sensory deficits, No cognition abnormalities ICD10 Worksheet Patient Problems: Problems Problem Status Diagnosed Chronic Disease Mgmt/Transitional Care Acute Chronic pneumonia Acute ESBL (extended spectrum beta-lactamase) producing bacteria infection Acute 02/27 Hypotension Acute Lung infiltrate Acute Severe sepsis Acute Shortness of breath Acute VRE (vancomycin-resistant Enterococci) Acute 01/11/16 Anemia Acute CHF (congestive heart failure) Acute Chronic renal failure Acute Extended spectrum beta lactamase (ESBL) resistance Acute 02/15/16 Fever Acute History of pneumonia Acute Hypoxemia Acute Hypoxia Acute Mitral valve replaced Acute Palliative care encounter Acute Pneumonia Acute Pneumonia due to Pseudomonas Acute Renal failure Acute Renal transplant recipient Acute Sepsis Acute Weakness Acute
--- NOTE | 2016-04-16 10:12 | SOAPPROG ---
SOAP Progress Note Assessment/Plan: Assessment/Plan: ESRD: on HD MWF. - Will plan HD next tomorrow per routine. NAS: continue calcium acetate with meals. Anemia: Hgb down to 6.4 today, some concern that the sample may not be accurate. Will recheck Hgb, consider transfusing if still low. Hypotension: improved, pt now s/p cardioversion for afib. h/o renal transplant: pt now weaned off tacrolimus given his multiple admissions with pneumonia, still on prednisone. Subjective: No acute events overnight. Pt had HD yesterday and tolerated well, also had his SAMINA with cardioversion and now in sinus rhythm. Pt feels fine, has no complaints today. Objective: Vital Signs Temp Pulse Resp BP Pulse Ox 36.4 C 67 20 105/57 L 96 04/16/16 04:00 04/16/16 08:24 04/16/16 08:24 04/16/16 08:24 04/16/16 08:24 Laboratory Results 04/16/16 06:30 04/16/16 06:30 04/15/16 04/16/16 04/17/16 05:59 05:59 05:59 Intake Total 2995 2277.8 Balance 2995 2277.8 PT 14.5 SEC (12.0-15.0) 04/16/16 06:30 INR 1.14 (0.83-1.16) 04/16/16 06:30 General: alert and oriented, no acute distress Eyes: EOMI, PERRL OP: Clear CV: RRR Resp: nonlabored respirations on NC Abd: Soft, NT/ND Ext: no edema BLE Psych: cooperative, appropriate mood and affect Neuro: CN II-XII grossly intact, no asterixis Access: R IJ TC ICD10 Worksheet Patient Problems: Problems Problem Status Diagnosed Chronic Disease Mgmt/Transitional Care Acute Chronic pneumonia Acute ESBL (extended spectrum beta-lactamase) producing bacteria infection Acute 02/27 Hypotension Acute Lung infiltrate Acute Severe sepsis Acute Shortness of breath Acute VRE (vancomycin-resistant Enterococci) Acute 01/11/16 Anemia Acute CHF (congestive heart failure) Acute Chronic renal failure Acute Extended spectrum beta lactamase (ESBL) resistance Acute 02/15/16 Fever Acute History of pneumonia Acute Hypoxemia Acute Hypoxia Acute Mitral valve replaced Acute Palliative care encounter Acute Pneumonia Acute Pneumonia due to Pseudomonas Acute Renal failure Acute Renal transplant recipient Acute Sepsis Acute Weakness Acute
--- NOTE | 2016-04-16 13:59 | HOSPPROG ---
Hospitalist Progress Note Assessment/Plan: 66 yo M with hx of ESBL/pseudomonal pna as well as esrd and recurrent a fib presenting with hypotension # fatige/malaise: in setting of hypotension and thought to be related to either a fib and anemia versus less likely infection. Improved slightly. Tx as below. # recurrent a fib: thought to be contributing to hypotension, doing well sp CV with sr and rates in 60s. plan to continue amiodarone. Consider dc on oral eliquis (per pharmacy, this is safe in patients with ESRD, no dose adjustment at his age) but will defer that to cardiology. Heparin gtt/coumadin for now. # anemia of ckd: h/h remain low but relatively stable, has been transfused 1 unit prbc during this hospitalization # ESRD: continue HD, renal following # ESBL/pseudomonal pna: cxr personally reviewed and bilateral infiltrates appear improved from prior, initially on vanc/merrem but given lack of clear s/ s of infection and cxr being improved from prior will dc and monitor off of abx. 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 continue dapsone, has been stopped on tacrolimus fairly recently # hypogammaglobulinemia: intermittent IVIG # chronic hypoxic respiratory failure: currently requiring 4L of o2 to maintain sats in 90s, at baseline # dispo: IP status, multiple active medical issues requiring complex medical decision making > 35 min spent in care of this patient more than half in face to face care of patient, care plan reviewed with cardiology, pharmacy, pulmonary Subjective: no significant overnight events, patient currently feeling well, would like to go home, eating ok, ambulating safely Objective: Vital Signs Temp Pulse Resp BP Pulse Ox 36.5 C 60 18 105/50 L 98 04/16/16 12:18 04/16/16 12:18 04/16/16 12:18 04/16/16 12:18 04/16/16 12:18 Laboratory Results 04/16/16 06:30 04/16/16 06:30 04/15/16 04/16/16 04/17/16 05:59 05:59 05:59 Intake Total 2995 2277.8 Balance 2995 2277.8 PT 14.5 SEC (12.0-15.0) 04/16/16 06:30 INR 1.14 (0.83-1.16) 04/16/16 06:30 awake alert anicteric op clear irreg irreg no mrg cta b soft nt nd no cce warm dry well perfused oriented appropriate ICD10 Worksheet Patient Problems: Problems Problem Status Diagnosed Chronic Disease Mgmt/Transitional Care Acute Chronic pneumonia Acute ESBL (extended spectrum beta-lactamase) producing bacteria infection Acute 02/27 Hypotension Acute Lung infiltrate Acute Severe sepsis Acute Shortness of breath Acute VRE (vancomycin-resistant Enterococci) Acute 01/11/16 Anemia Acute CHF (congestive heart failure) Acute Chronic renal failure Acute Extended spectrum beta lactamase (ESBL) resistance Acute 02/15/16 Fever Acute History of pneumonia Acute Hypoxemia Acute Hypoxia Acute Mitral valve replaced Acute Palliative care encounter Acute Pneumonia Acute Pneumonia due to Pseudomonas Acute Renal failure Acute Renal transplant recipient Acute Sepsis Acute Weakness Acute
[2016-04-16] MEDS: WARFARIN SODIUM 5 MG TAB PO SCH (16:34)
[2016-04-16] MEDS: MONTELUKAST SODIUM 10 MG TAB PO SCH (18:31)
[2016-04-16] MEDS: NEPHROVITE FOLIC ACID/VIT B&C 1 TAB PO SCH (21:41)
[2016-04-16] MEDS: DAPSONE 100 MG TAB PO SCH (21:42)
[2016-04-16] MEDS: TIOTROPIUM INHALER 18 MCG/DOSE 5 DOSE/MDI IH SCH (21:47)
[2016-04-17] MEDS: DIAZEPAM 5 MG TAB PO PRN (02:04)
[2016-04-17 06:13] LABS: % IMMATURE GRANULYOCYTES 0.4 % (0.0-1.1); ABSOLUTE IMMATURE GRANULOCYTES 0.03 10^3/uL (0.00-0.10); ADD DIFF? NO; ADD MORPH? YES; ADD SCAN? NO; ATYPICAL LYMPHOCYTE FLAG 0 (0-99); FRAGMENT RBC FLAG 0 (0-99); LEFT SHIFT FLG 0 (0-99); LIPEMIA HEMOLYSIS FLAG 80 (0-99); MEAN CELL HEMOGLOBIN 34.1 pg (27.9-34.1); MEAN CELL HEMOGLOBIN CONCENTR. 31.6 g/dL (32.4-36.7); MEAN PLATELET VOLUME 8.9 fL (8.7-11.7); PLATELET CLUMPS FLAG 0 (0-99); PLATELET COUNT 167 10^3/uL (150-400); RED BLOOD CELL COUNT 1.76 10^6/uL (4.40-6.38)
[2016-04-17 06:23] LABS: INR 1.24 (0.83-1.16); PROTIME(PATIENT) 15.6 SEC (12.0-15.0)
[2016-04-17 06:52] LABS: SPHEROCYTES 3+
[2016-04-17 06:54] LABS: MICROCYTES 1+
[2016-04-17 06:57] LABS: PLATELET ESTIMATE ADEQUATE (ADEQ); TOXIC GRANULATION PRESENT
[2016-04-17 06:58] LABS: HYPOCHROMIA 1+
[2016-04-17 06:59] LABS: KERATOCYTES 1+
[2016-04-17 07:29] LABS: ANION GAP 10 mEq/L (8-16); CALCIUM 8.1 mg/dL (8.5-10.4); CARBON DIOXIDE 21 mEq/l (22-31); CHLORIDE 102 mEq/L (97-110); CREATININE 4.8 mg/dL (0.7-1.3); GLOMERULAR FILTRATION RATE 12; GLUCOSE 85 mg/dL (70-100); MAGNESIUM 1.9 mg/dL (1.6-2.3); POTASSIUM 4.8 mEq/L (3.5-5.2); SODIUM 133 mEq/L (134-144)
[2016-04-17] MEDS: AMIODARONE HCL 200 MG TAB PO SCH ×2 (08:27→21:27)
[2016-04-17] MEDS: BUDESONIDE 0.25MG/2ML DEYVIAL (5/POUCH) IH SCH ×2 (08:54→20:58)
[2016-04-17] MEDS: LEVALBUTEROL INHALER 200 PUFFS/15 GM MDI IH SCH ×2 (08:54→20:58)
[2016-04-17] MEDS: Mometasone/Formoterol [Dulera 200 Mcg/5 Mcg Inhaler] IH SCH ×2 (09:01→21:03)
--- NOTE | 2016-04-17 09:24 | SOAPPROG ---
SOJAYY Progress Note Assessment/Plan: Assessment: 1. ESRD. HD today per MWF schedule. 2. Atrial fibrillation. S/p DCCV. On amiodarone, hep gtt. 3. Anemia. Hgb drifting down. MCV has trended up over last 3 months. Chk TSH, B12, folate. Prior hx hemolytic anemia on tac, await smear, check TBili, LDH, haptoglobin, retics. PRBC tx today on dialysis. 4. Failed kidney tx. Maintained on pred. Tacrolimus held. Plan: 04/17/16 09:21 04/17/16 09:21 Subjective: Pt seen and examined on hemodialysis. No complaints today. Receiving PRBCs. Denies blood in stools. Objective: Vital Signs Temp Pulse Resp BP Pulse Ox 36.4 C 64 19 107/67 93 04/17/16 07:39 04/17/16 08:55 04/17/16 08:55 04/17/16 07:39 04/17/16 08:55 Laboratory Results 04/17/16 05:50 04/17/16 05:50 04/16/16 04/17/16 04/18/16 05:59 05:59 05:59 Intake Total 2277.8 2109 Balance 2277.8 2109 PT 15.6 SEC (12.0-15.0) H 04/17/16 05:50 INR 1.24 (0.83-1.16) H 04/17/16 05:50 Comfortable, in chair, on dialysis Qb 350 UF goal 2.9L RRR, no m/g/r Coarse breath sounds in R base, diminished in JEFF Abdom distended, nt 1+ LE pitting edema ICD10 Worksheet Patient Problems: Problems Problem Status Diagnosed Chronic Disease [facility]/Transitional Care Acute Chronic pneumonia Acute ESBL (extended spectrum beta-lactamase) producing bacteria infection Acute 02/27 Hypotension Acute Lung infiltrate Acute Severe sepsis Acute Shortness of breath Acute VRE (vancomycin-resistant Enterococci) Acute 01/11/16 Anemia Acute CHF (congestive heart failure) Acute Chronic renal failure Acute Extended spectrum beta lactamase (ESBL) resistance Acute 02/15/16 Fever Acute History of pneumonia Acute Hypoxemia Acute Hypoxia Acute Mitral valve replaced Acute Palliative care encounter Acute Pneumonia Acute Pneumonia due to Pseudomonas Acute Renal failure Acute Renal transplant recipient Acute Sepsis Acute Weakness Acute
--- NOTE | 2016-04-17 10:32 | SOAPPROG ---
TISH Progress Note Assessment/Plan: Assessment: He presents with symptoms of fatigue. This is likely multifactorial related to his anemia, chronic pulmonary disease and possibly an underlying pneumonia. Additionally, he is found to be back in atrial fibrillation. As an outpatient he has been treated with low-dose amiodarone at 200 mg daily. He has not been taking systemic anticoagulation. 04/16/2016: Yesterday he underwent a SAMINA/cardioversion. He appears to be maintaining sinus rhythm. He was given a single dose of Coumadin. He remains on systemic anticoagulation with heparin. 04/17/2016: He appears to be maintaining sinus rhythm on his current medications. There has not been a significant cardiovascular change. Plans are for 2 units of packed red blood cells today. Plan: 1. Agree with transfusion of packed red blood cells. 2. Maintain systemic anticoagulation with heparin until he is therapeutic on his Coumadin with an INR between 2 and 3. 3. Continue amiodarone 400 mg twice daily. 4. We will arrange for outpatient follow-up with Dr. Jimenez next week. 5. At this point, I think that we can sign off. Please re-consult us if needed. 04/17/16 10:30 Subjective: He is feeling a little more tired today than he did yesterday. His rhythm remains in sinus rhythm. He has been hemodynamically stable. He is currently receiving hemodialysis. Objective: Vital Signs Temp Pulse Resp BP Pulse Ox 36.4 C 64 19 107/67 93 04/17/16 07:39 04/17/16 08:55 04/17/16 08:55 04/17/16 07:39 04/17/16 08:55 Laboratory Results 04/17/16 05:50 04/17/16 05:50 04/16/16 04/17/16 04/18/16 05:59 05:59 05:59 Intake Total 2277.8 2109 Balance 2277.8 2109 PT 15.6 SEC (12.0-15.0) H 04/17/16 05:50 INR 1.24 (0.83-1.16) H 04/17/16 05:50 Physical Exam - Physical Exam General Appearance: WD/WN, no apparent distress Neck: non-tender Respiratory: lungs clear Cardiac/Chest: regular rate, rhythm Peripheral Pulses: 2+: carotid (R), carotid (L) ICD10 Worksheet Patient Problems: Problems Problem Status Diagnosed Chronic Disease Mgmt/Transitional Care Acute Chronic pneumonia Acute ESBL (extended spectrum beta-lactamase) producing bacteria infection Acute 02/27 Hypotension Acute Lung infiltrate Acute Severe sepsis Acute Shortness of breath Acute VRE (vancomycin-resistant Enterococci) Acute 01/11/16 Anemia Acute CHF (congestive heart failure) Acute Chronic renal failure Acute Extended spectrum beta lactamase (ESBL) resistance Acute 02/15/16 Fever Acute History of pneumonia Acute Hypoxemia Acute Hypoxia Acute Mitral valve replaced Acute Palliative care encounter Acute Pneumonia Acute Pneumonia due to Pseudomonas Acute Renal failure Acute Renal transplant recipient Acute Sepsis Acute Weakness Acute
--- NOTE | 2016-04-17 10:40 | DX ---
Portable AP Upright Chest April 17, 2016, at 6:10 a.m. Clinical History: 66-year-old male in the ICU for follow up of respiratory status. The patient is in renal failure with sepsis. Comparison Study: Chest, dated April 13, 2016, at 12:13 p.m. Findings: Again noted is a right-sided large-bore dialysis catheter terminating at the SVC/right atri al junction. Median sternotomy wires, mediastinal surgical clips, and a cardiac valvuloplasty are not ed. There is a left-sided PICC line which terminates at the SVC/right atrial junction. Telemetry richie toring lead lines are present. The cardiac silhouette remains enlarged. There is peribronchial thicke aneesh with pulmonary vascular redistribution and underlying COPD. There are areas of increasing alveol ar consolidation in the lateral left [id number] lung zones, and involving both lower lung zones, wi th pleural effusions present and some peripheral paraseptal lines noted. There is no pneumothorax. Th e trachea is midline. Impression: Interval worsening since April 13, 2016.
[2016-04-17] MEDS: HEPARIN/DEXTROSE 500 ML IV SCH (11:19)
[2016-04-17] MEDS: CALCIUM ACETATE 667 MG CAP PO SCH ×4 (11:36→18:25)
[2016-04-17] MEDS: guaiFENesin 600 MG TAB.ER PO SCH ×2 (11:37→21:27)
[2016-04-17] MEDS: hydrOXYzine HCL 25 MG TAB PO SCH ×2 (11:37→21:27)
[2016-04-17] MEDS: predniSONE 5 MG TAB PO SCH (11:37)
--- NOTE | 2016-04-17 12:32 | SOAPPROG ---
SOAP Progress Note Assessment/Plan: Assessment: Weakness/failure to thrive. In part chronic secondary to his multiple medical problems. Atrial fibrillation was contributing. In normal sinus rhythm now post cardioversion. Atrial fibrillation. S/P Cardioversion. In normal sinus rhythm. Amiodarone increased. On anticoagulation with heparin, plus Coumadin. Chronic broncho-pneumonia with bronchiectasis, postinflammatory pulmonary fibrosis and pleural disease. Pulmonary status appears to be stable at this point in time, but chest x-ray with increased pleural effusions and infiltrates today. These are at least in part volume related. For dialysis today. No evidence of a new or recurrent pneumonia clinically at this time. COPD. No evidence of exacerbation. On inhaled therapies and montelukast. Hypotension: Multifactorial. I do not believe that sepsis was playing a role. Antibiotics stopped. Blood pressure is now normal. Chronic renal failure. On hemodialysis. Chronic anemia: Hematocrit 19 today. For 2 units of blood with hemodialysis. Hx immunodeficiency, etc. Plan: Continue care. Hemodialysis with blood today. Cont Heparin, Coumadin. Follow CBC and laboratory values, chest x-ray intermittently. Discharge relatively soon, next 1-2 days, on Coumadin. Subjective: Doing well. Denies significant shortness of breath. Occasional cough, not bringing up much mucus. Would prefer to go home. Objective: Vital Signs Temp Pulse Resp BP Pulse Ox 35.7 C L 63 18 117/61 95 04/17/16 11:40 04/17/16 11:40 04/17/16 11:40 04/17/16 11:40 04/17/16 11:40 Laboratory Results 04/17/16 05:50 04/17/16 05:50 04/16/16 04/17/16 04/18/16 05:59 05:59 05:59 Intake Total 2277.8 2109 Balance 2277.8 2109 PT 15.6 SEC (12.0-15.0) H 04/17/16 05:50 INR 1.24 (0.83-1.16) H 04/17/16 05:50 Surveillance chest x-ray: Increased effusions bilaterally and patchy infiltrates at the right base and left mid/lower lung. Physical Exam - Physical Exam General Appearance: alert, no apparent distress, thin, other (Up in chair) EENT: other (Nasal cannula 2 L) Neck: normal inspection Respiratory: decreased breath sounds (Course, rales persist at both bases, right greater than left. Decreased breath sounds at the left base compared to the right. Some congestion with cough.), prolonged expiration, No wheezing Cardiac/Chest: regular rate, rhythm (Sinus) Abdomen: normal bowel sounds, non-tender, soft Skin: warm/dry, pallor Extremities: pedal edema Neuro/Psych: no motor/sensory deficits, No cognition abnormalities ICD10 Worksheet Patient Problems: Problems Problem Status Diagnosed Chronic Disease Mgmt/Transitional Care Acute Chronic pneumonia Acute ESBL (extended spectrum beta-lactamase) producing bacteria infection Acute 02/27 Hypotension Acute Lung infiltrate Acute Severe sepsis Acute Shortness of breath Acute VRE (vancomycin-resistant Enterococci) Acute 01/11/16 Anemia Acute CHF (congestive heart failure) Acute Chronic renal failure Acute Extended spectrum beta lactamase (ESBL) resistance Acute 02/15/16 Fever Acute History of pneumonia Acute Hypoxemia Acute Hypoxia Acute Mitral valve replaced Acute Palliative care encounter Acute Pneumonia Acute Pneumonia due to Pseudomonas Acute Renal failure Acute Renal transplant recipient Acute Sepsis Acute Weakness Acute
--- NOTE | 2016-04-17 15:38 | HOSPPROG ---
Hospitalist Progress Note Assessment/Plan: 66 yo M with hx of ESBL/pseudomonal pna as well as esrd and recurrent a fib presenting with hypotension # fatige/malaise: in setting of hypotension and thought to be related to either a fib and anemia versus less likely infection. Improved slightly. Tx as below. # recurrent a fib: thought to be contributing to hypotension, doing well sp CV with sr and rates in 60s. plan to continue amiodarone. Heparin gtt/coumadin, INR remains low # acute on chronic anemia: with underlying anemia of ckd as well as reported hx of hemolytic anemia from tacrolimus. Hgb of 6 today, w/u for hemolysis sent by renal and will f/u. Will tx today. No e/o active bleeding. # ESBL/pseudomonal pna: cxr personally reviewed and bilateral infiltrates appear improved from prior, initially on vanc/merrem and monitoring off of abx now 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 continue dapsone, has been stopped on tacrolimus fairly recently # hypogammaglobulinemia: intermittent IVIG # chronic hypoxic respiratory failure: currently requiring 4L of o2 to maintain sats in 90s, at baseline # dispo: IP status, multiple active medical issues requiring complex medical decision making Reviewed with pulmonary on multidisciplinary team rounds Subjective: no significant overnight events, patient feeling a bit tired but otherwise no complaints Objective: Vital Signs Temp Pulse Resp BP Pulse Ox 35.7 C L 63 18 117/61 95 04/17/16 11:40 04/17/16 11:40 04/17/16 11:40 04/17/16 11:40 04/17/16 11:40 Laboratory Results 04/17/16 05:50 04/17/16 05:50 04/16/16 04/17/16 04/18/16 05:59 05:59 05:59 Intake Total 2277.8 2109 Balance 2277.8 2109 PT 15.6 SEC (12.0-15.0) H 04/17/16 05:50 INR 1.24 (0.83-1.16) H 04/17/16 05:50 awake alert anicteric op clear irreg irreg no mrg cta b soft nt nd no cce warm dry well perfused oriented appropriate ICD10 Worksheet Patient Problems: Problems Problem Status Diagnosed Chronic Disease Mgmt/Transitional Care Acute Chronic pneumonia Acute ESBL (extended spectrum beta-lactamase) producing bacteria infection Acute 02/27 Hypotension Acute Lung infiltrate Acute Severe sepsis Acute Shortness of breath Acute VRE (vancomycin-resistant Enterococci) Acute 01/11/16 Anemia Acute CHF (congestive heart failure) Acute Chronic renal failure Acute Extended spectrum beta lactamase (ESBL) resistance Acute 02/15/16 Fever Acute History of pneumonia Acute Hypoxemia Acute Hypoxia Acute Mitral valve replaced Acute Palliative care encounter Acute Pneumonia Acute Pneumonia due to Pseudomonas Acute Renal failure Acute Renal transplant recipient Acute Sepsis Acute Weakness Acute
[2016-04-17] MEDS: WARFARIN SODIUM 5 MG TAB PO SCH (17:04)
[2016-04-17] MEDS: MONTELUKAST SODIUM 10 MG TAB PO SCH (18:25)
[2016-04-17] MEDS: TIOTROPIUM INHALER 18 MCG/DOSE 5 DOSE/MDI IH SCH (20:58)
[2016-04-17] MEDS ORDERED: HEPARIN 50,000 UNIT/10 ML VIAL ONE (21:17)
[2016-04-17] MEDS: NEPHROVITE FOLIC ACID/VIT B&C 1 TAB PO SCH (21:27)
[2016-04-17] MEDS: DAPSONE 100 MG TAB PO SCH (21:28)
[2016-04-18] MEDS: HEPARIN/DEXTROSE 500 ML IV SCH ×2 (04:41→20:40)
[2016-04-18 05:00] LABS: HEMATOCRIT 25.5 % (40.0-51.0)
[2016-04-18 05:10] LABS: INR 1.56 (0.83-1.16); PROTIME(PATIENT) 18.7 SEC (12.0-15.0)
[2016-04-18 05:25] LABS: ALANINE AMINOTRANSFERASE 38 IU/L (21-72); ALBUMIN 2.7 g/dL (3.5-5.0); ALKALINE PHOSPHATASE 53 IU/L (38-126); ANION GAP 9 mEq/L (8-16); ASPARTATE AMINOTRANSFERASE 42 IU/L (17-59); BILIRUBIN,TOTAL 1.5 mg/dL (0.1-1.4); BILIRUBIN-CONJUGATED 1.1 mg/dL (0.0-0.5); BILIRUBIN-UNCONJUGATED 0.4 mg/dL (0.0-1.1); CALCIUM 7.6 mg/dL (8.5-10.4); CARBON DIOXIDE 27 mEq/l (22-31); CHLORIDE 98 mEq/L (97-110); CREATININE 3.4 mg/dL (0.7-1.3); GLOMERULAR FILTRATION RATE 18; GLUCOSE 79 mg/dL (70-100); LACTATE DEHYDROGENASE 980 IU/L (313-618); POTASSIUM 4.8 mEq/L (3.5-5.2); SODIUM 134 mEq/L (134-144); TOTAL PROTEIN 5.1 g/dL (6.3-8.2)
[2016-04-18] MEDS: BUDESONIDE 0.25MG/2ML DEYVIAL (5/POUCH) IH SCH ×2 (05:58→20:28)
[2016-04-18] MEDS: LEVALBUTEROL INHALER 200 PUFFS/15 GM MDI IH SCH ×2 (05:59→20:29)
[2016-04-18] MEDS: Mometasone/Formoterol [Dulera 200 Mcg/5 Mcg Inhaler] IH SCH ×2 (06:04→20:54)
[2016-04-18] MEDS: HEPARIN 10,000 UNIT/10 ML MDV IVP PRN (07:24)
[2016-04-18] MEDS: CALCIUM ACETATE 667 MG CAP PO SCH ×3 (07:51→18:06)
[2016-04-18] MEDS: guaiFENesin 600 MG TAB.ER PO SCH ×2 (07:51→20:42)
[2016-04-18] MEDS: AMIODARONE HCL 200 MG TAB PO SCH ×2 (07:51→20:42)
[2016-04-18] MEDS: predniSONE 5 MG TAB PO SCH (07:52)
[2016-04-18 09:37] LABS: FOLATE SERUM > 20.00 ng/mL (2.80 - >20.00)
[2016-04-18] MEDS: hydrOXYzine HCL 25 MG TAB PO SCH ×2 (09:37→20:41)
--- NOTE | 2016-04-18 09:51 | SOAPPROG ---
TISH Progress Note Assessment/Plan: Assessment:Plan: ESRD-stable Outpatient dialysis MWF at [facility] -plan for next Hd on Friday Volume overload-plan for 2 Kg UF with dialysis tomorrow Heme-Hct 25 -patient states there was some concern about hemolytic component from the doctors he saw at [facility] -evaluated need for additional PRBC's Access-stable 04/18/16 09:48 Subjective: no new complaints Objective: Vital Signs Temp Pulse Resp BP Pulse Ox 36.9 C 68 24 H 124/65 H 91 L 04/18/16 07:28 04/18/16 07:28 04/18/16 07:28 04/18/16 07:28 04/18/16 07:28 Laboratory Results 04/18/16 04:45 04/18/16 04:45 04/17/16 04/18/16 04/19/16 05:59 05:59 05:59 Intake Total 2109 2562 Output Total 3000 Balance 2109 -438 PT 18.7 SEC (12.0-15.0) H 04/18/16 04:45 INR 1.56 (0.83-1.16) H 04/18/16 04:45 Physical Exam - Physical Exam General Appearance: alert, no apparent distress, thin EENT: normal ENT inspection Neck: normal inspection Respiratory: decreased breath sounds (throughout) Cardiac/Chest: regular rate, rhythm, systolic murmur Abdomen: normal bowel sounds, non-tender Extremities: swelling (1-2+ edema in LE's below knees) ICD10 Worksheet Patient Problems: Problems Problem Status Diagnosed Chronic Disease Mgmt/Transitional Care Acute Chronic pneumonia Acute ESBL (extended spectrum beta-lactamase) producing bacteria infection Acute 02/27 Hypotension Acute Lung infiltrate Acute Severe sepsis Acute Shortness of breath Acute VRE (vancomycin-resistant Enterococci) Acute 01/11/16 Anemia Acute CHF (congestive heart failure) Acute Chronic renal failure Acute Extended spectrum beta lactamase (ESBL) resistance Acute 02/15/16 Fever Acute History of pneumonia Acute Hypoxemia Acute Hypoxia Acute Mitral valve replaced Acute Palliative care encounter Acute Pneumonia Acute Pneumonia due to Pseudomonas Acute Renal failure Acute Renal transplant recipient Acute Sepsis Acute Weakness Acute
[2016-04-18 12:14] LABS: HEMOGLOBIN 8.3 g/dL (13.7-17.5)
--- NOTE | 2016-04-18 13:57 | HOSPPROG ---
Hospitalist Progress Note Assessment/Plan: 66 yo M with hx of ESBL/pseudomonal pna as well as esrd and recurrent a fib presenting with hypotension # fatige/malaise: in setting of hypotension and thought to be related to either a fib and anemia versus less likely infection. Improved slightly. Tx as below. # recurrent a fib: thought to be contributing to hypotension, doing well sp CV with sr and rates in 60s. plan to continue amiodarone. Heparin gtt/coumadin, INR remains low # acute on chronic anemia: with underlying anemia of ckd as well as reported hx of hemolytic anemia 2/2 tacrolimus diagnosed at OSH. h/h lower than baseline currently, hemolysis labs sent by renal yesterday so far concerning for hemolysis again with increased ldh/inc bili/haptoglobin pending. Have asked for onc to evaluate and weigh in. # ESBL/pseudomonal pna: cxr personally reviewed and bilateral infiltrates appear improved from prior, initially on vanc/merrem and monitoring off of abx now 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 continue dapsone, has been stopped on tacrolimus fairly recently # hypogammaglobulinemia: intermittent IVIG # chronic hypoxic respiratory failure: currently requiring 4L of o2 to maintain sats in 90s, at baseline # dispo: IP status, multiple active medical issues requiring complex medical decision making Reviewed with heme/onc regarding concerns for hemolysis Subjective: no significant overnight events, pateint feeling a bit better today , eager to dc home Objective: Vital Signs Temp Pulse Resp BP Pulse Ox 37.1 C 112 H 18 112/62 91 L 04/18/16 12:01 04/18/16 12:01 04/18/16 12:01 04/18/16 12:01 04/18/16 12:01 Laboratory Results 04/18/16 12:00 04/18/16 04:45 04/17/16 04/18/16 04/19/16 05:59 05:59 05:59 Intake Total 2109 2562 Output Total 3000 Balance 2109 -438 PT 18.7 SEC (12.0-15.0) H 04/18/16 04:45 INR 1.56 (0.83-1.16) H 04/18/16 04:45 awake alert anicteric op clear irreg irreg no mrg cta b soft nt nd no cce warm dry well perfused oriented appropriate - Time Spent With Patient Time Spent with Patient: greater than 35 minutes Time Spent with Patient: Greater than 35 minutes spent on this patients care, greater than 50% of time spent counseling, educating, and coordinating care regarding the above mentioned plan. ICD10 Worksheet Patient Problems: Problems Problem Status Diagnosed Chronic Disease Mgmt/Transitional Care Acute Chronic pneumonia Acute ESBL (extended spectrum beta-lactamase) producing bacteria infection Acute 02/27 Hypotension Acute Lung infiltrate Acute Severe sepsis Acute Shortness of breath Acute VRE (vancomycin-resistant Enterococci) Acute 01/11/16 Anemia Acute CHF (congestive heart failure) Acute Chronic renal failure Acute Extended spectrum beta lactamase (ESBL) resistance Acute 02/15/16 Fever Acute History of pneumonia Acute Hypoxemia Acute Hypoxia Acute Mitral valve replaced Acute Palliative care encounter Acute Pneumonia Acute Pneumonia due to Pseudomonas Acute Renal failure Acute Renal transplant recipient Acute Sepsis Acute Weakness Acute
[2016-04-18] MEDS: EPOETIN ALFA 2000 UNIT/ML IVP SCH (14:55)
--- NOTE | 2016-04-18 15:21 | GCON ---
[f rep st] CONSULTATION REFERRING PHYSICIAN: Ernst Rock MD REASON FOR CONSULTATION: Macrocytic anemia. HISTORY OF PRESENT ILLNESS: The patient is a 66-year-old gentleman with multiple medical issues, inc luding a history of end-stage renal disease status post transplant, with recent evidence of chronic r ejection, recurrent ESBL, pseudomonal pneumonia, bronchiectasis and anemia, who was admitted on 04/13 with hypotension, recurrent AFib and chronic hypoxic respiratory failure. The patient was rece ntly hospitalized at [facility] from 02/25/2016 through 03/09/2016. He was treated for recurrent pneumonia and completed a 21-day course of meropenem with aggressive pulmonary therapy. Quinton gallagher was discharged to [facility] and has been there since March 23. Stated that he was doing fairly well up to a few days prior to admission. He reported increased weakness, had be en coughing up loose sputum, shortness of breath. Denied fevers, chills, or sweats. Denied nausea, vomiting, or diarrhea. No headache, no dizziness. As far as his anemia, patient reports that he was told he has been anemic since before he was put on dialysis. He reports receiving weekly Aranesp during dialysis treatments at [facility], as well as when he was in [facility]. Seems like it has been a few weeks since he has received any ESAs. He also receives IVIG. Unclear when he last received this medication due to hypogammaglobuli nemia. The patient reports to me that he was on tacrolimus and prednisone until a kidney doctor at [facility] felt that he was having chronic rejection. In addition, hemoglobin was dropping, and he f elt this was a drug-induced hemolysis. I do not have the labs from this hospital to review. Since a dmission here on the , his hemoglobin was 9.0, hematocrit 28.8. Next day dropped to 7.4 and then to 6.7. It has been up and down, but he has received 3 units of packed red blood cells this admissio n. Most recently, he received 2 units for a hemoglobin of 6 and responded nicely up to a hemoglobin of 8.3 today. Notably, white blood cells and platelet count are within normal limits. He does have a macrocytosis that actually has improved since his hospital admission and is now 108. His B12 and f olate were normal. His reticulocyte was slightly elevated, but not to the degree of compensation aamir t is appropriate for hemolysis. His PT and INR were normal prior to starting heparin and Coumadin; quinton gallagher is on these for atrial fibrillation. He does have an elevated total bilirubin, but this is primari ly conjugated bilirubin and not unconjugated. His LDH is elevated at 980, and his haptoglobin is pen ding. I do not have a Echo test on him or iron studies from recent admission. The patient currently denies bleeding. He denies any blood clots recently. He maintains on oxygen t o maintain his sats in the 90s. He was cardioverted this hospital admission and doing well from that standpoint. MEDICATIONS: Have been reviewed and include amiodarone, dapsone, heparin, budesonide, levalbuterol, Singulair, Zofran, prednisone 5, tiotropium and warfarin. REVIEW OF SYSTEMS: The patient is feeling weak and fatigued but otherwise doing well since admission . Please see HPI. Otherwise, 14-point review of systems is negative. PAST MEDICAL HISTORY: 1. History of paroxysmal AFib status post cardioversion this admission. 2. End-stage renal disease, on hemodialysis Friday, Friday, Friday. 3. Recurrent ESBL pseudomonal pneumonia. 4. Bronchiectasis. 5. Chronic hypoxic respiratory failure. 6. Status post renal transplant, chronic rejection. 7. Chronic immunodeficiency requiring intermittent IVIG. 8. Anemia of chronic disease as well as anemia of underlying kidney disease. 9. Deconditioning. 10. Benign hypertension. 11. Dysphagia. 12. Esophagitis and mild dysmotility. 13. Severe TR and [id number] pulmonary hypertension. PAST SURGICAL HISTORY: Cardioversion for atrial fibrillation, history of kidney transplant, mitral v alve repair. FAMILY HISTORY: Polycystic kidney disease. SOCIAL HISTORY: Lives alone. No alcohol, tobacco or drugs. ALLERGIES: Iodine. PHYSICAL EXAM: VITAL SIGNS: Today, blood pressure 112/62, heart rate 112, saturating 91% on 2 L mookie al cannula, temp is 37.1. GENERAL: He is an older, frail gentleman, looks older than his stated age , chronically ill-appearing. HEENT: Slightly pale conjunctivae, anicteric sclerae. HEART: Regular rate and rhythm. LUNGS: Clear bilaterally. ABDOMEN: Soft. I do not feel an enlarged liver or spl een on my exam. EXTREMITIES: No edema. SKIN: Shows multiple ecchymoses. Oropharynx is clear. No evidence of bleeding. LABS: As mentioned per HPI. IMPRESSION: A 66-year-old gentleman with the above-mentioned past medical history, namely end-stage renal disease on hemodialysis, recent atrial fibrillation with rapid ventricular response status post cardioversion, whom I am seeing to evaluate anemia. Notably, the patient also has hypogammaglobulin emia and receives intermittent IVIG. Previously has received Aranesp for underlying end-stage renal disease and on dapsone for Pneumocystis carinii pneumonia prophylaxis. He remains on prednisone 5 to avoid acute rejection of renal transplant. As far as anemia, this certainly may be hemolytic, although all his labs are not totally consistent. His haptoglobin is pending at this time. His LDH is nonspecific but elevated. Bilirubin is elevate d, but this is primarily conjugated and typically with hemolysis, we see an unconjugated bilirubin th at is elevated. His reticulocyte is elevated but not to the degree I would have expected him to comp ensate based on his hemoglobin, and certainly reflects an underlying anemia of chronic disease/anemia of chronic kidney disease. I am reassured by the fact that platelets and white blood cells are normal, and I do not think this r epresents any sort of underlying bone marrow disorder. I was not able to palpate a spleen. He does have macrocytosis, which has improved. Macrocytosis is certainly a reflection of the spherocytes see n on peripheral smear, which I have reviewed personally with the pathologist. Furthermore, his peripheral blood smear is very difficult to interpret, based on underlying end-stage renal disease. There are multiple abnormal cells. I do not think this is a microangiopathic hemoly tic anemia or thrombotic thrombocytopenic purpura. I think strongest possibility is this is a drug-r elated hemolysis previously, and possibly we have not been keeping up with KEYANA injections to keep his red blood cells up. I think some of the drugs that may be implicated do include tacrolimus, althoug h this has been discontinued as of 3 weeks ago. Other drugs of possible concern would be IVIG or dap sone. I would like to add on a direct Echo and iron studies to patient's labs, although iron studies can certainly be hard to interpret, given recent blood transfusions. Otherwise, I think we watch his H a nd H closely, definitely consider increasing prednisone dose if positive Echo, although this should have been detected on his type and cross from previous blood transfusions. I am recommending reinit iating Dusty, which I will add today, and we will follow him closely. /[id number]/MODL
[2016-04-18] MEDS: LEVALBUTEROL 1.25 MG/3 ML DEYVIAL IH PRN (15:31)
[2016-04-18] MEDS: WARFARIN SODIUM 5 MG TAB PO SCH (16:19)
[2016-04-18 16:33] LABS: % SATURATION 49 % (20-55); TOTAL IRON BINDING CAPACITY 145 ug/dL (260-490)
--- NOTE | 2016-04-18 17:22 | ECHO ---
[id number] + + [address] : : [facility] [address] : : [phone] + Transesophageal Echocardiographic Report + ------+ :Name: TAMEKA JAIMES MStudy Date: 04/15/2016 02:21 PM : : Hospital Admission Number: [id number] Locatio n: 244: :: 1950 Gender: Male : :Age: 66 yrs Race: WH,White : :Reason For Study: pre-cardioversion : :History: afib : + ------+ LV The left ventricle is normal in size and function. RV The right ventricle is normal in size and function. Atria No thrombus is detected in the left atrial appendage. Mitral Valve There is trace to mild mitral regurgitation. There is a bioprosthetic mitral valve. Aortic Valve The aortic valve is trileaflet. Mild aortic regurgitation. Pulmonic Valve The pulmonic valve is not well visualized. Tricuspid Valve The tricuspid valve is normal in structure and function. There is moderate tricuspid regurgitation. Conclusion A 2D transesophageal echocardiogram with Doppler and color flow Doppler was performed. The left ventricle is normal in size and function. No thrombus is detected in the left atrial appendage. There is a bioprosthetic mitral valve with normal function. There is trace to mild mitral regurgitation. Mild aortic regurgitation. There is moderate tricuspid regurgitation. The patient underwent cardioversion following this procedure. Final Reading Physician: Maliha Davis signed on 04/18/2016 05:21 PM Ordering Physician: Gurinder Parks Performed By: Aries Richardson MD
[2016-04-18] MEDS: MONTELUKAST SODIUM 10 MG TAB PO SCH (18:06)
[2016-04-18] MEDS: TIOTROPIUM INHALER 18 MCG/DOSE 5 DOSE/MDI IH SCH (20:28)
[2016-04-18] MEDS: DAPSONE 100 MG TAB PO SCH (20:41)
[2016-04-18] MEDS: NEPHROVITE FOLIC ACID/VIT B&C 1 TAB PO SCH (20:42)
[2016-04-18] MEDS: DIAZEPAM 5 MG TAB PO PRN (23:50)
[2016-04-19] MEDS: LEVALBUTEROL 1.25 MG/3 ML DEYVIAL IH PRN (04:10)
[2016-04-19 04:45] LABS: INR 2.32 (0.83-1.16); PROTIME(PATIENT) 25.7 SEC (12.0-15.0)
[2016-04-19] MEDS: CALCIUM ACETATE 667 MG CAP PO SCH ×3 (07:54→17:15)
[2016-04-19] MEDS: predniSONE 5 MG TAB PO SCH (09:03)
[2016-04-19] MEDS: hydrOXYzine HCL 25 MG TAB PO SCH ×2 (09:03→20:33)
[2016-04-19] MEDS: guaiFENesin 600 MG TAB.ER PO SCH ×2 (09:03→20:33)
[2016-04-19] MEDS: AMIODARONE HCL 200 MG TAB PO SCH ×2 (09:03→20:33)
[2016-04-19] MEDS: Mometasone/Formoterol [Dulera 200 Mcg/5 Mcg Inhaler] IH SCH ×2 (09:07→22:06)
--- NOTE | 2016-04-19 09:19 | HOSPPROG ---
Hospitalist Progress Note Assessment/Plan: * Anemia - suspect ACD + renal failure +/- hemolysis -haptoglobin pending - ? tacrolimus - off x 3 weeks -restart Aranesp * Acute on chronic respiratory failure - baseline 2L -increased SOB last night, now up to 5L -suspect volume overload - remove fluid via dialysis -low suspicion for recurrent PNA - off abx * Renal transplant due to PCKD - chronic rejection -prednisone 5mg * ESRD - chronic HD * Hypotension - suspect hypovolemia due to anemia * Afib s/p cardioversion -increased amiodarone -INR therapeutic on warfarin - stop heparin * Bronchiectasis - h/o ESBL/pseudomonas pneumonia -isolation * COPD * Hypogammaglobulinemia - intermittent IVIG Subjective: Increased SOB last night, O2 up to 5L Objective: Vital Signs Temp Pulse Resp BP Pulse Ox 36.3 C 85 18 138/64 H 93 04/19/16 07:57 04/19/16 07:57 04/19/16 07:57 04/19/16 07:57 04/19/16 07:57 Microbiology 04/13/16 19:45 Blood Culture - Final Blood Laboratory Results 04/18/16 12:00 04/18/16 04:45 04/18/16 04/19/16 04/20/16 05:59 05:59 05:59 Intake Total 2562 880 1153 Output Total 3000 Balance -183 178 5663 PT 25.7 SEC (12.0-15.0) H 04/19/16 04:15 INR 2.32 (0.83-1.16) H 04/19/16 04:15 - Physical Exam Constitutional: no apparent distress, appears nourished, not in pain Cardiovascular: regular rate and rhythym, no murmur, rub, or gallop, edema (2+) Respiratory: no respiratory distress, expiratory wheeze, inspiratory crackles, rhonchi Gastrointestinal: normoactive bowel sounds, soft, non-tender abdomen, no palpable masses Skin: no rashes or abrasions, no fluctuance, no induration Neurologic: AAOx3, sensation intact bilaterally Psychiatric: interacting appropriately, not anxious, not encephalopathic, thought process linear ICD10 Worksheet Patient Problems: Problems Problem Status Diagnosed Chronic Disease Mgmt/Transitional Care Acute Chronic pneumonia Acute ESBL (extended spectrum beta-lactamase) producing bacteria infection Acute 02/27 Hypotension Acute Lung infiltrate Acute Severe sepsis Acute Shortness of breath Acute VRE (vancomycin-resistant Enterococci) Acute 01/11/16 Anemia Acute CHF (congestive heart failure) Acute Chronic renal failure Acute Extended spectrum beta lactamase (ESBL) resistance Acute 02/15/16 Fever Acute History of pneumonia Acute Hypoxemia Acute Hypoxia Acute Mitral valve replaced Acute Palliative care encounter Acute Pneumonia Acute Pneumonia due to Pseudomonas Acute Renal failure Acute Renal transplant recipient Acute Sepsis Acute Weakness Acute
[2016-04-19] MEDS: METOPROLOL TARTRATE 25 MG TAB PO SCH ×2 (09:36→20:33)
--- NOTE | 2016-04-19 10:02 | SOAPPROG ---
SOAP Progress Note Assessment/Plan: Assessment/Plan: ESRD: on HD MWF. - HD to be done later today per routine. NAS: continue calcium acetate with meals. Anemia: has anemia of chronic kidney disease, mixed picture for hemolysis. Hem/ onc following. h/o renal transplant: pt now weaned off tacrolimus given his multiple admissions with pneumonia, still on prednisone. Subjective: No acute events overnight. Pt continues to have BP controlled and no longer hypotensive, breathing is stable. A bit more swelling in legs today. Objective: Vital Signs Temp Pulse Resp BP Pulse Ox 36.3 C 86 18 127/66 H 93 04/19/16 07:57 04/19/16 09:36 04/19/16 07:57 04/19/16 09:36 04/19/16 07:57 Microbiology 04/13/16 19:45 Blood Culture - Final Blood Laboratory Results 04/18/16 12:00 04/18/16 04:45 04/18/16 04/19/16 04/20/16 05:59 05:59 05:59 Intake Total 2562 880 1153 Output Total 3000 Balance -149 198 2895 PT 25.7 SEC (12.0-15.0) H 04/19/16 04:15 INR 2.32 (0.83-1.16) H 04/19/16 04:15 General: alert and oriented, no acute distress Eyes: EOMI, PERRL OP: Clear CV: RRR Resp: nonlabored respirations on NC Abd: Soft, NT Ext: +2 edema BLE Neuro: CN II-XII grossly intact, no asterixis Psych: cooperative, appropriate mood and affect Access: [facility] ICD10 Worksheet Patient Problems: Problems Problem Status Diagnosed Chronic Disease Mgmt/Transitional Care Acute Chronic pneumonia Acute ESBL (extended spectrum beta-lactamase) producing bacteria infection Acute 02/27 Hypotension Acute Lung infiltrate Acute Severe sepsis Acute Shortness of breath Acute VRE (vancomycin-resistant Enterococci) Acute 01/11/16 Anemia Acute CHF (congestive heart failure) Acute Chronic renal failure Acute Extended spectrum beta lactamase (ESBL) resistance Acute 02/15/16 Fever Acute History of pneumonia Acute Hypoxemia Acute Hypoxia Acute Mitral valve replaced Acute Palliative care encounter Acute Pneumonia Acute Pneumonia due to Pseudomonas Acute Renal failure Acute Renal transplant recipient Acute Sepsis Acute Weakness Acute
[2016-04-19] MEDS: BUDESONIDE 0.25MG/2ML DEYVIAL (5/POUCH) IH SCH ×2 (11:06→22:05)
[2016-04-19] MEDS: LEVALBUTEROL INHALER 200 PUFFS/15 GM MDI IH SCH ×2 (11:07→22:02)
--- NOTE | 2016-04-19 12:41 | SOAPPROG ---
SOAP Progress Note Assessment/Plan: Assessment/Plan: 66 yo man w mult medical issues including ESRD s/p transplant w e/o chronic rejection more recently, Afib s/p cardioversion, chronic hypoxic resp fx, bronchiectasis, hypogammaglobulinemia. Hematology has been asked to see for anemia 1. Anemia - likely multifactorial def has anemia of ESRD as well as anemia of chronic dz Question of whether or not he had and still recovering from a drug induced hemolysis (ie tacrolimus) Not all hemolysis labs consistent He is Echo negative so no AIHA suspected -also CBC appropriately corrected w recent PRBC transfusion which also argues against this Haptoglobin pending I did start him on Aranesp which I ordered for 3x/week Will cont to watch H/H On pred 5 daily for kidney tx Other drugs that may be playing a role in anemia would include IVIg and Dapsone - although he has been on these for a while so seems less likely Check CBC tomorrow 2. Other medical issues - per IM will follow along with you 04/19/16 12:35 04/19/16 12:37 04/19/16 12:42 Subjective: No acute events feeling about the same Objective: Vital Signs Temp Pulse Resp BP Pulse Ox 36.7 C 63 22 H 109/62 91 L 04/19/16 11:25 04/19/16 11:25 04/19/16 11:25 04/19/16 11:25 04/19/16 11:25 Microbiology 04/13/16 19:45 Blood Culture - Final Blood Laboratory Results 04/18/16 12:00 04/18/16 04:45 04/18/16 04/19/16 04/20/16 05:59 05:59 05:59 Intake Total 2562 880 1153 Output Total 3000 Balance -634 691 6903 PT 25.7 SEC (12.0-15.0) H 04/19/16 04:15 INR 2.32 (0.83-1.16) H 04/19/16 04:15 Gen - chronically ill appearing HEENT - no OP bleeding CV - RRR, +systolic murmur Abd - soft, BS+ Ext - edema up to mid calf bilaterally Skin - mult ecchymoses, no active bleeding ICD10 Worksheet Patient Problems: Problems Problem Status Diagnosed Chronic Disease Mgmt/Transitional Care Acute Chronic pneumonia Acute ESBL (extended spectrum beta-lactamase) producing bacteria infection Acute 02/27 Hypotension Acute Lung infiltrate Acute Severe sepsis Acute Shortness of breath Acute VRE (vancomycin-resistant Enterococci) Acute 01/11/16 Anemia Acute CHF (congestive heart failure) Acute Chronic renal failure Acute Extended spectrum beta lactamase (ESBL) resistance Acute 02/15/16 Fever Acute History of pneumonia Acute Hypoxemia Acute Hypoxia Acute Mitral valve replaced Acute Palliative care encounter Acute Pneumonia Acute Pneumonia due to Pseudomonas Acute Renal failure Acute Renal transplant recipient Acute Sepsis Acute Weakness Acute
--- NOTE | 2016-04-19 20:16 | SOAPPROG ---
SOAP Progress Note Assessment/Plan: Assessment: Weakness/failure to thrive. In part chronic secondary to his multiple medical problems. Atrial fibrillation was contributing. In normal sinus rhythm now post cardioversion. Feels better compared to admission Atrial fibrillation. S/P Cardioversion. In normal sinus rhythm. Amiodarone increased. On Coumadin, INR therapeutic. Chronic broncho-pneumonia with bronchiectasis, postinflammatory pulmonary fibrosis and pleural disease. Pulmonary status appears to be stable at this point in time. Increased hypoxemia most likely secondary to volume status: For 3 L fluid removal this evening. No evidence of a new or recurrent pneumonia clinically at this time. Off antibiotics. COPD. No evidence of exacerbation. On inhaled therapies and montelukast. Hypotension: Resolved. Chronic renal failure. On hemodialysis. Chronic anemia: Hematocrit 25 post 2 units 2 days ago. Hemolytic anemia as seems unlikely. Hematology consultation appreciated.. Hx immunodeficiency, etc. Plan: Continue care. Hemodialysis with fluid removal today. Cont Coumadin. Follow CBC and laboratory values, chest x-ray intermittently. Possible discharge relatively soon on Coumadin if he continues to do well.. Subjective: Feels better. Was more short of breath, more hypoxic last night but he feels this was secondary to increased fluid retention. He is getting hemodialysis now with 3 L removal and feels less short of breath. Cough is unchanged, not increased. Objective: Vital Signs Temp Pulse Resp BP Pulse Ox 36.7 C 63 22 H 109/62 91 L 04/19/16 11:25 04/19/16 11:25 04/19/16 11:25 04/19/16 11:25 04/19/16 11:25 Microbiology 04/13/16 19:45 Blood Culture - Final Blood Laboratory Results 04/18/16 12:00 04/18/16 04:45 04/18/16 04/19/16 04/20/16 05:59 05:59 05:59 Intake Total 2562 880 1153 Output Total 3000 Balance -565 546 9148 PT 25.7 SEC (12.0-15.0) H 04/19/16 04:15 INR 2.32 (0.83-1.16) H 04/19/16 04:15 Physical Exam - Physical Exam General Appearance: alert, no apparent distress EENT: other (On 5 L nasal cannula) Neck: normal inspection Respiratory: lungs clear (Anteriorly), decreased breath sounds (At bases), rales (Very few now, is clears I have ever heard him.), No rhonchi (Some congestion with cough), No wheezing Cardiac/Chest: regular rate, rhythm, systolic murmur Abdomen: normal bowel sounds, non-tender, soft Skin: warm/dry, pallor Extremities: pedal edema Neuro/Psych: no motor/sensory deficits, No cognition abnormalities ICD10 Worksheet Patient Problems: Problems Problem Status Diagnosed Chronic Disease Mgmt/Transitional Care Acute Chronic pneumonia Acute ESBL (extended spectrum beta-lactamase) producing bacteria infection Acute 02/27 Hypotension Acute Lung infiltrate Acute Severe sepsis Acute Shortness of breath Acute VRE (vancomycin-resistant Enterococci) Acute 01/11/16 Anemia Acute CHF (congestive heart failure) Acute Chronic renal failure Acute Extended spectrum beta lactamase (ESBL) resistance Acute 02/15/16 Fever Acute History of pneumonia Acute Hypoxemia Acute Hypoxia Acute Mitral valve replaced Acute Palliative care encounter Acute Pneumonia Acute Pneumonia due to Pseudomonas Acute Renal failure Acute Renal transplant recipient Acute Sepsis Acute Weakness Acute
[2016-04-19] MEDS: NEPHROVITE FOLIC ACID/VIT B&C 1 TAB PO SCH (20:32)
[2016-04-19] MEDS: DAPSONE 100 MG TAB PO SCH (20:33)
[2016-04-19] MEDS: MONTELUKAST SODIUM 10 MG TAB PO SCH (20:39)
[2016-04-19] MEDS: WARFARIN SODIUM 5 MG TAB PO SCH (20:39)
[2016-04-19] MEDS ORDERED: HEPARIN 50,000 UNIT/10 ML VIAL ONE (20:41)
[2016-04-19] MEDS: TIOTROPIUM INHALER 18 MCG/DOSE 5 DOSE/MDI IH SCH (22:03)
[2016-04-20 06:05] LABS: ANION GAP 7 mEq/L (8-16); CALCIUM 7.8 mg/dL (8.5-10.4); CARBON DIOXIDE 27 mEq/l (22-31); CHLORIDE 102 mEq/L (97-110); CREATININE 3.2 mg/dL (0.7-1.3); GLOMERULAR FILTRATION RATE 20; GLUCOSE 74 mg/dL (70-100); SODIUM 136 mEq/L (134-144)
[2016-04-20 06:10] LABS: % IMMATURE GRANULYOCYTES 0.4 % (0.0-1.1); ABSOLUTE IMMATURE GRANULOCYTES 0.03 10^3/uL (0.00-0.10); ADD DIFF? NO; ADD MORPH? NO; ADD SCAN? NO; ATYPICAL LYMPHOCYTE FLAG 0 (0-99); FRAGMENT RBC FLAG 0 (0-99); HEMATOCRIT 26.1 % (40.0-51.0); HEMOGLOBIN 8.3 g/dL (13.7-17.5); LEFT SHIFT FLG 0 (0-99); LIPEMIA HEMOLYSIS FLAG 80 (0-99); MEAN CELL HEMOGLOBIN 32.8 pg (27.9-34.1); MEAN CELL HEMOGLOBIN CONCENTR. 31.8 g/dL (32.4-36.7); MEAN CELL VOLUME 103.2 fL (81.5-99.8); MEAN PLATELET VOLUME 9.3 fL (8.7-11.7); PLATELET CLUMPS FLAG 60 (0-99); PLATELET COUNT 178 10^3/uL (150-400); RED BLOOD CELL COUNT 2.53 10^6/uL (4.40-6.38); RED CELL DISTRIBUTION WIDTH 19.2 % (11.5-15.2)
[2016-04-20 06:36] LABS: INR 2.68 (0.83-1.16); PROTIME(PATIENT) 28.8 SEC (12.0-15.0)
[2016-04-20] MEDS: METOPROLOL TARTRATE 25 MG TAB PO SCH ×2 (09:25→21:17)
[2016-04-20] MEDS: hydrOXYzine HCL 25 MG TAB PO SCH ×2 (09:25→21:17)
[2016-04-20] MEDS: guaiFENesin 600 MG TAB.ER PO SCH ×2 (09:25→21:17)
[2016-04-20] MEDS: CALCIUM ACETATE 667 MG CAP PO SCH ×3 (09:25→17:10)
[2016-04-20] MEDS: predniSONE 5 MG TAB PO SCH (09:25)
[2016-04-20] MEDS: AMIODARONE HCL 200 MG TAB PO SCH ×2 (09:25→21:17)
[2016-04-20] MEDS: BUDESONIDE 0.25MG/2ML DEYVIAL (5/POUCH) IH SCH ×2 (11:14→20:38)
[2016-04-20] MEDS: LEVALBUTEROL INHALER 200 PUFFS/15 GM MDI IH SCH ×2 (11:15→20:39)
--- NOTE | 2016-04-20 11:15 | DX ---
Chest, PA and Lateral History: Follow-up pneumonia Comparison: April 17 and 2016 Findings: There is increasing bilateral lower lobe consolidation and associated pleural effusions, le ft greater than right. The pulmonary vascularity is certainly less plethoric. A double lumen right ju gular venous catheter remains in place with tip in the superior vena cava- right atrial junction. A l eft arm PICC line remains in place with tip in the superior vena cava. The upper lobes remain normall y aerated. Impression: Progressive pneumonia, left greater than right.
[2016-04-20] MEDS: Mometasone/Formoterol [Dulera 200 Mcg/5 Mcg Inhaler] IH SCH ×2 (11:18→22:05)
--- NOTE | 2016-04-20 15:58 | SOAPPROG ---
SOAP Progress Note Assessment/Plan: Assessment: 66 yo man w mult medical issues including ESRD s/p transplant w e/o chronic rejection more recently, Afib s/p cardioversion, chronic hypoxic resp fx, bronchiectasis, hypogammaglobulinemia. Hematology has been asked to see for anemia 1. Anemia - likely multifactorial def has anemia of ESRD as well as anemia of chronic dz Question of whether or not he had and still recovering from a drug induced hemolysis (ie tacrolimus) Even though haptoglobin is low, it doesn't take much hemolysis to make haptoglobin undetectable. He is Echo negative so no AIHA suspected -also CBC appropriately corrected w recent PRBC transfusion which also argues against this I did start him on Aranesp which I ordered for 3x/week His hgb is stable at 8.3 On pred 5 daily for kidney tx Other drugs that may be playing a role in anemia would include IVIg and Dapsone - although he has been on these for a while so seems less likely He is OK for discharge to home tomorrow as far as his heme issues are concerned. We would be happy to follow him as an outpatient for his anemia. Plan: Follow up with us in the office in about a week. I'll sign off for now. Thanks Subjective: Just woke up from a nap. No complaints today Objective: Vital Signs Temp Pulse Resp BP Pulse Ox 35.9 C L 63 15 117/64 90 L 04/20/16 12:00 04/20/16 12:00 04/20/16 12:00 04/20/16 12:00 04/20/16 12:00 Laboratory Results 04/20/16 05:35 04/20/16 05:35 04/18/16 04/19/16 04/20/16 23:59 23:59 23:59 Intake Total 700 1373 200 Balance 700 1373 200 PT 28.8 SEC (12.0-15.0) H 04/20/16 05:35 INR 2.68 (0.83-1.16) H 04/20/16 05:35 Physical Exam - Physical Exam General Appearance: no apparent distress ICD10 Worksheet Patient Problems: Problems Problem Status Diagnosed Chronic Disease Mgmt/Transitional Care Acute Chronic pneumonia Acute ESBL (extended spectrum beta-lactamase) producing bacteria infection Acute 02/27 Hypotension Acute Lung infiltrate Acute Severe sepsis Acute Shortness of breath Acute VRE (vancomycin-resistant Enterococci) Acute 01/11/16 Anemia Acute CHF (congestive heart failure) Acute Chronic renal failure Acute Extended spectrum beta lactamase (ESBL) resistance Acute 02/15/16 Fever Acute History of pneumonia Acute Hypoxemia Acute Hypoxia Acute Mitral valve replaced Acute Palliative care encounter Acute Pneumonia Acute Pneumonia due to Pseudomonas Acute Renal failure Acute Renal transplant recipient Acute Sepsis Acute Weakness Acute
--- NOTE | 2016-04-20 16:43 | SOAPPROG ---
TISH Progress Note Assessment/Plan: Assessment: 1. esrd: next hd Friday if remains admitted, otherwise at [facility] at his typical time. He has been working on trying to get permanent access placed as outpt. 2. anemia: Heme input appreciated. Now off prograf. If anemia becomes even more difficult to manage would consider dx of allograft rejection, in which case transplant nephrectomy may be indicated in light of recurrent infections. 3. volume: remains sl volume up, will uf on hd as tolerated. Plan: 04/20/16 16:40 04/20/16 16:44 Subjective: Up in chair, no particular c/o. Objective: Vital Signs Temp Pulse Resp BP Pulse Ox 35.9 C L 63 15 117/64 90 L 04/20/16 12:00 04/20/16 12:00 04/20/16 12:00 04/20/16 12:00 04/20/16 12:00 Laboratory Results 04/20/16 05:35 04/20/16 05:35 04/19/16 04/20/16 04/21/16 05:59 05:59 05:59 Intake Total 880 1253 100 Balance 880 1253 100 PT 28.8 SEC (12.0-15.0) H 04/20/16 05:35 INR 2.68 (0.83-1.16) H 04/20/16 05:35 Physical Exam - Physical Exam General Appearance: other (chronically-ill appearing) Extremities: swelling (+LE edema) ICD10 Worksheet Patient Problems: Problems Problem Status Diagnosed Chronic Disease Mgmt/Transitional Care Acute Chronic pneumonia Acute ESBL (extended spectrum beta-lactamase) producing bacteria infection Acute 02/27 Hypotension Acute Lung infiltrate Acute Severe sepsis Acute Shortness of breath Acute VRE (vancomycin-resistant Enterococci) Acute 01/11/16 Anemia Acute CHF (congestive heart failure) Acute Chronic renal failure Acute Extended spectrum beta lactamase (ESBL) resistance Acute 02/15/16 Fever Acute History of pneumonia Acute Hypoxemia Acute Hypoxia Acute Mitral valve replaced Acute Palliative care encounter Acute Pneumonia Acute Pneumonia due to Pseudomonas Acute Renal failure Acute Renal transplant recipient Acute Sepsis Acute Weakness Acute
--- NOTE | 2016-04-20 17:02 | HOSPPROG ---
Hospitalist Progress Note Assessment/Plan: * Anemia - suspect ACD + renal failure +/- hemolysis -recent drug induced hemolysis (tacrolimus) - recovering off drug -Aranesp 3 x week * Acute on chronic respiratory failure - baseline 2L -volume overload - remove fluid via dialysis -low suspicion for recurrent PNA - off abx * Renal transplant due to PCKD - chronic rejection -prednisone 5mg -consider transplant nephrectomy * ESRD - chronic HD - next Friday * Hypotension - suspect hypovolemia due to anemia * Afib s/p cardioversion -increased amiodarone -INR therapeutic on warfarin - stop heparin * Bronchiectasis - h/o ESBL/pseudomonas pneumonia -isolation * COPD * Hypogammaglobulinemia - intermittent IVIG Subjective: better, some SOB last night Objective: Vital Signs Temp Pulse Resp BP Pulse Ox 36.8 C 75 21 H 105/54 L 93 04/20/16 16:00 04/20/16 16:00 04/20/16 16:00 04/20/16 16:00 04/20/16 16:00 Laboratory Results 04/20/16 05:35 04/20/16 05:35 04/19/16 04/20/16 04/21/16 05:59 05:59 05:59 Intake Total 880 1253 100 Balance 880 1253 100 PT 28.8 SEC (12.0-15.0) H 04/20/16 05:35 INR 2.68 (0.83-1.16) H 04/20/16 05:35 - Physical Exam Constitutional: no apparent distress, appears nourished, not in pain Cardiovascular: regular rate and rhythym, no murmur, rub, or gallop Respiratory: no respiratory distress, no rales or rhonchi, clear to auscultation Gastrointestinal: normoactive bowel sounds, soft, non-tender abdomen, no palpable masses Skin: no rashes or abrasions, no fluctuance, no induration Neurologic: AAOx3, sensation intact bilaterally Psychiatric: interacting appropriately, not anxious, not encephalopathic, thought process linear ICD10 Worksheet Patient Problems: Problems Problem Status Diagnosed Chronic Disease Mgmt/Transitional Care Acute Chronic pneumonia Acute ESBL (extended spectrum beta-lactamase) producing bacteria infection Acute 02/27 Hypotension Acute Lung infiltrate Acute Severe sepsis Acute Shortness of breath Acute VRE (vancomycin-resistant Enterococci) Acute 01/11/16 Anemia Acute CHF (congestive heart failure) Acute Chronic renal failure Acute Extended spectrum beta lactamase (ESBL) resistance Acute 02/15/16 Fever Acute History of pneumonia Acute Hypoxemia Acute Hypoxia Acute Mitral valve replaced Acute Palliative care encounter Acute Pneumonia Acute Pneumonia due to Pseudomonas Acute Renal failure Acute Renal transplant recipient Acute Sepsis Acute Weakness Acute
[2016-04-20] MEDS: WARFARIN SODIUM 5 MG TAB PO SCH (17:11)
[2016-04-20] MEDS: MONTELUKAST SODIUM 10 MG TAB PO SCH (17:11)
[2016-04-20] MEDS: EPOETIN ALFA 2000 UNIT/ML IVP SCH (18:09)
[2016-04-20] MEDS: TIOTROPIUM INHALER 18 MCG/DOSE 5 DOSE/MDI IH SCH (20:39)
[2016-04-20] MEDS: DAPSONE 100 MG TAB PO SCH (21:17)
[2016-04-20] MEDS: NEPHROVITE FOLIC ACID/VIT B&C 1 TAB PO SCH (21:17)
[2016-04-21 07:06] LABS: INR 3.59 (0.83-1.16); PROTIME(PATIENT) 36.4 SEC (12.0-15.0)
[2016-04-21 07:12] LABS: % IMMATURE GRANULYOCYTES 0.5 % (0.0-1.1); ABSOLUTE IMMATURE GRANULOCYTES 0.05 10^3/uL (0.00-0.10); ADD DIFF? NO; ADD MORPH? NO; ADD SCAN? NO; ATYPICAL LYMPHOCYTE FLAG 0 (0-99); FRAGMENT RBC FLAG 0 (0-99); HEMATOCRIT 25.9 % (40.0-51.0); HEMOGLOBIN 8.2 g/dL (13.7-17.5); LEFT SHIFT FLG 0 (0-99); LIPEMIA HEMOLYSIS FLAG 80 (0-99); MEAN CELL HEMOGLOBIN 33.2 pg (27.9-34.1); MEAN CELL HEMOGLOBIN CONCENTR. 31.7 g/dL (32.4-36.7); MEAN CELL VOLUME 104.9 fL (81.5-99.8); MEAN PLATELET VOLUME 9.3 fL (8.7-11.7); PLATELET CLUMPS FLAG 40 (0-99); PLATELET COUNT 180 10^3/uL (150-400); RED BLOOD CELL COUNT 2.47 10^6/uL (4.40-6.38); RED CELL DISTRIBUTION WIDTH 18.6 % (11.5-15.2)
[2016-04-21 07:24] LABS: ANION GAP 9 mEq/L (8-16); CALCIUM 8.1 mg/dL (8.5-10.4); CARBON DIOXIDE 26 mEq/l (22-31); CHLORIDE 100 mEq/L (97-110); CREATININE 4.6 mg/dL (0.7-1.3); GLOMERULAR FILTRATION RATE 13; GLUCOSE 71 mg/dL (70-100); SODIUM 135 mEq/L (134-144)
[2016-04-21] MEDS: BUDESONIDE 0.25MG/2ML DEYVIAL (5/POUCH) IH SCH ×2 (09:51→20:20)
[2016-04-21] MEDS: LEVALBUTEROL INHALER 200 PUFFS/15 GM MDI IH SCH ×2 (09:52→20:21)
[2016-04-21] MEDS: Mometasone/Formoterol [Dulera 200 Mcg/5 Mcg Inhaler] IH SCH ×2 (09:57→20:39)
[2016-04-21] MEDS: CALCIUM ACETATE 667 MG CAP PO SCH ×3 (10:12→18:21)
[2016-04-21] MEDS: hydrOXYzine HCL 25 MG TAB PO SCH ×2 (10:13→20:52)
[2016-04-21] MEDS: predniSONE 5 MG TAB PO SCH (10:13)
[2016-04-21] MEDS: AMIODARONE HCL 200 MG TAB PO SCH ×2 (10:13→20:51)
[2016-04-21] MEDS: METOPROLOL TARTRATE 25 MG TAB PO SCH ×2 (10:14→20:52)
[2016-04-21] MEDS: guaiFENesin 600 MG TAB.ER PO SCH ×2 (10:14→20:52)
--- NOTE | 2016-04-21 11:55 | CT ---
CT Scan of the Chest (Without Contrast) Clinical Indications: Evaluate for increasing pneumonia versus effusion. Technique: Multidetector helical CT was performed from the superior thoracic inlet to the diaphragm. No intravenous contrast was given. The radiologist manipulated images at the computer workstation. Dose reduction techniques were utilized. Comparison Examination: February 27, 2016. Findings: Bilateral pleural effusions are present, moderate in size on the left and smaller on the ri ght. The left effusion has increased from prior study and the right effusion is new. There is associa sridevi bilateral lower lobe atelectasis/consolidation. Mediastinal windows demonstrate moderate mediastinal lymphadenopathy, similar to prior study. The lar gest lymph node is present in the pretracheal space that 2.4 cm size just above the barbara. Multiple other lymph nodes are identified. Prior coronary and cardiac interventions including median sternotomy, CABG, and mitral valve replacem ent with associated extensive pericardial calcification along the undersurface of the heart. Within the upper abdomen, extensive cystic changes are noted within both kidneys and the liver sugges tive of autosomal dominant polycystic kidney disease. Impression: 1. Bilateral pleural effusions, moderate on the left and smaller on the right with associated bilater al lower lobe atelectasis/consolidation. 2. Moderate mediastinal lymphadenopathy. 3. Extensive prior cardiac interventions. 4. 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
--- NOTE | 2016-04-21 14:54 | SOAPPROG ---
TISH Progress Note Assessment/Plan: Assessment: 1. esrd: hd tomorrow to continue typical mwf schedule. He has been working on trying to get permanent access placed as outpt. 2. anemia: Heme input appreciated. Now off prograf. If anemia becomes even more difficult to manage would consider dx of allograft rejection, in which case transplant nephrectomy may be indicated in light of recurrent infections. 3. volume: remains volume up, will uf on hd as tolerated. 4. HyperK: he takes Kionex powder daily as outpt. Will dose today, dialyze tomorrow. Plan: 04/20/16 16:40 04/20/16 16:44 04/21/16 14:53 Subjective: No particular c/o. Objective: Vital Signs Temp Pulse Resp BP Pulse Ox 36.7 C 56 L 16 107/46 L 90 L 04/21/16 08:00 04/21/16 10:01 04/21/16 10:01 04/21/16 08:00 04/21/16 10:01 Laboratory Results 04/21/16 06:35 04/21/16 06:35 04/20/16 04/21/16 04/22/16 05:59 05:59 05:59 Intake Total 1253 350 Balance 1253 350 PT 36.4 SEC (12.0-15.0) H 04/21/16 06:35 INR 3.59 (0.83-1.16) H 04/21/16 06:35 Physical Exam - Physical Exam General Appearance: no apparent distress Extremities: swelling (bilateral LE) ICD10 Worksheet Patient Problems: Problems Problem Status Diagnosed Chronic Disease Mgmt/Transitional Care Acute Chronic pneumonia Acute ESBL (extended spectrum beta-lactamase) producing bacteria infection Acute 02/27 Hypotension Acute Lung infiltrate Acute Severe sepsis Acute Shortness of breath Acute VRE (vancomycin-resistant Enterococci) Acute 01/11/16 Anemia Acute CHF (congestive heart failure) Acute Chronic renal failure Acute Extended spectrum beta lactamase (ESBL) resistance Acute 02/15/16 Fever Acute History of pneumonia Acute Hypoxemia Acute Hypoxia Acute Mitral valve replaced Acute Palliative care encounter Acute Pneumonia Acute Pneumonia due to Pseudomonas Acute Renal failure Acute Renal transplant recipient Acute Sepsis Acute Weakness Acute
[2016-04-21] MEDS: EPOETIN ALFA 2000 UNIT/ML IVP SCH (15:35)
[2016-04-21] MEDS: SODIUM POLYSTYRENE SULF PO SCH (15:36)
--- NOTE | 2016-04-21 16:10 | HOSPPROG ---
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 uses a neb Objective: Vital Signs Temp Pulse Resp BP Pulse Ox 36.7 C 56 L 16 107/46 L 90 L 04/21/16 08:00 04/21/16 10:01 04/21/16 10:01 04/21/16 08:00 04/21/16 10:01 Laboratory Results 04/21/16 06:35 04/21/16 06:35 04/20/16 04/21/16 04/22/16 05:59 05:59 05:59 Intake Total 1253 350 Balance 1253 350 PT 36.4 SEC (12.0-15.0) H 04/21/16 06:35 INR 3.59 (0.83-1.16) H 04/21/16 06:35 CXR personally reviewed - left pleural effusion vs. infiltrate much worse that admission CXR - which I also personally reviewed and interpreted CT chest: moderate left effusion, infiltrate less of an issue - Physical Exam Constitutional: no apparent distress, appears nourished, not in pain Cardiovascular: regular rate and rhythym, no murmur, rub, or gallop Respiratory: no respiratory distress, no rales or rhonchi, clear to auscultation Gastrointestinal: normoactive bowel sounds, soft, non-tender abdomen, no palpable masses Skin: no rashes or abrasions, no fluctuance, no induration Neurologic: AAOx3, sensation intact bilaterally Psychiatric: interacting appropriately, not anxious, not encephalopathic, thought process linear ICD10 Worksheet Patient Problems: Problems Problem Status Diagnosed Chronic Disease Mgmt/Transitional Care Acute Chronic pneumonia Acute ESBL (extended spectrum beta-lactamase) producing bacteria infection Acute 02/27 Hypotension Acute Lung infiltrate Acute Severe sepsis Acute Shortness of breath Acute VRE (vancomycin-resistant Enterococci) Acute 01/11/16 Anemia Acute CHF (congestive heart failure) Acute Chronic renal failure Acute Extended spectrum beta lactamase (ESBL) resistance Acute 02/15/16 Fever Acute History of pneumonia Acute Hypoxemia Acute Hypoxia Acute Mitral valve replaced Acute Palliative care encounter Acute Pneumonia Acute Pneumonia due to Pseudomonas Acute Renal failure Acute Renal transplant recipient Acute Sepsis Acute Weakness Acute
[2016-04-21] MEDS: MONTELUKAST SODIUM 10 MG TAB PO SCH (18:21)
--- NOTE | 2016-04-21 19:50 | SOAPPROG ---
SOAP Progress Note Assessment/Plan: Assessment: Weakness/failure to thrive. In part chronic secondary to his multiple medical problems. Atrial fibrillation was contributing. In normal sinus rhythm now post cardioversion. Feels better compared to admission Atrial fibrillation. S/P Cardioversion. In normal sinus rhythm. Amiodarone increased. On Coumadin, INR therapeutic. Chronic broncho-pneumonia with bronchiectasis, postinflammatory pulmonary fibrosis and pleural disease. Pulmonary status appears to be stable at this point in time. Oxygen requirements at baseline: 4 L No evidence of a new or recurrent pneumonia clinically at this time. Off antibiotics. Increased effusions bilaterally, left greater than right, may be related to increased fluid retention from kidney disease and in adequate dialysis. For dialysis again tomorrow. COPD. No evidence of exacerbation. On inhaled therapies and montelukast. Hypotension: Resolved. Chronic renal failure. On hemodialysis. Chronic anemia: Hematocrit stable at 26 post 2 units of blood several days ago. Hx immunodeficiency, etc. Plan: Continue care. Hemodialysis with fluid removal again tomorrow. Surveillance sputum cultures sent. No indication for antibiotics currently. Cont Coumadin. Follow CBC and laboratory values, chest x-ray intermittently. Subjective: Feels somewhat more short of breath. Cough persists but is not worse. Not bringing up much phlegm. Remains on 4 L. Denies fevers or chills Objective: Vital Signs Temp Pulse Resp BP Pulse Ox 36.0 C 54 L 20 103/64 86 L 04/21/16 16:00 04/21/16 16:00 04/21/16 16:00 04/21/16 16:00 04/21/16 16:00 Laboratory Results 04/21/16 06:35 04/21/16 06:35 04/20/16 04/21/16 04/22/16 05:59 05:59 05:59 Intake Total 1253 350 830 Balance 1253 350 830 PT 36.4 SEC (12.0-15.0) H 04/21/16 06:35 INR 3.59 (0.83-1.16) H 04/21/16 06:35 CT chest: Increased pleural fluid on the left as well as on the right. No significant increase in infiltrates. Chronic parenchymal changes present primarily at the left base. Physical Exam - Physical Exam General Appearance: alert, no apparent distress, other (Up in chair) EENT: other (Nasal cannula at 4 L) Neck: normal inspection (Jugular venous distension present) Respiratory: lungs clear (Anteriorly), decreased breath sounds, rales ( Primarily at the left base, relatively minimal.), No wheezing Cardiac/Chest: bradycardia (Sinus) Abdomen: normal bowel sounds, non-tender, soft Skin: warm/dry, pallor Extremities: pedal edema Neuro/Psych: no motor/sensory deficits, No cognition abnormalities ICD10 Worksheet Patient Problems: Problems Problem Status Diagnosed Chronic Disease Mgmt/Transitional Care Acute Chronic pneumonia Acute ESBL (extended spectrum beta-lactamase) producing bacteria infection Acute 02/27 Hypotension Acute Lung infiltrate Acute Severe sepsis Acute Shortness of breath Acute VRE (vancomycin-resistant Enterococci) Acute 01/11/16 Anemia Acute CHF (congestive heart failure) Acute Chronic renal failure Acute Extended spectrum beta lactamase (ESBL) resistance Acute 02/15/16 Fever Acute History of pneumonia Acute Hypoxemia Acute Hypoxia Acute Mitral valve replaced Acute Palliative care encounter Acute Pneumonia Acute Pneumonia due to Pseudomonas Acute Renal failure Acute Renal transplant recipient Acute Sepsis Acute Weakness Acute
[2016-04-21] MEDS: TIOTROPIUM INHALER 18 MCG/DOSE 5 DOSE/MDI IH SCH (20:21)
[2016-04-21] MEDS ORDERED: ALBUMIN 25% 100 ML IV ONE ×2 (20:30)
[2016-04-21] MEDS: DAPSONE 100 MG TAB PO SCH (20:51)
[2016-04-21] MEDS: NEPHROVITE FOLIC ACID/VIT B&C 1 TAB PO SCH (20:52)
[2016-04-21] MEDS: DIAZEPAM 5 MG TAB PO PRN (22:36)
[2016-04-22 04:58] LABS: % IMMATURE GRANULYOCYTES 0.4 % (0.0-1.1); ABSOLUTE IMMATURE GRANULOCYTES 0.04 10^3/uL (0.00-0.10); ADD DIFF? NO; ADD MORPH? NO; ADD SCAN? NO; ATYPICAL LYMPHOCYTE FLAG 0 (0-99); FRAGMENT RBC FLAG 0 (0-99); HEMATOCRIT 24.2 % (40.0-51.0); HEMOGLOBIN 7.7 g/dL (13.7-17.5); LEFT SHIFT FLG 0 (0-99); LIPEMIA HEMOLYSIS FLAG 80 (0-99); MEAN CELL HEMOGLOBIN 33.3 pg (27.9-34.1); MEAN CELL HEMOGLOBIN CONCENTR. 31.8 g/dL (32.4-36.7); MEAN CELL VOLUME 104.8 fL (81.5-99.8); MEAN PLATELET VOLUME 9.2 fL (8.7-11.7); PLATELET CLUMPS FLAG 20 (0-99); PLATELET COUNT 194 10^3/uL (150-400); RED BLOOD CELL COUNT 2.31 10^6/uL (4.40-6.38); RED CELL DISTRIBUTION WIDTH 18.1 % (11.5-15.2)
[2016-04-22 05:05] LABS: ANION GAP 10 mEq/L (8-16); CALCIUM 8.1 mg/dL (8.5-10.4); CARBON DIOXIDE 27 mEq/l (22-31); CHLORIDE 100 mEq/L (97-110); CREATININE 5.7 mg/dL (0.7-1.3); GLOMERULAR FILTRATION RATE 10; GLUCOSE 70 mg/dL (70-100); POTASSIUM 5.7 mEq/L (3.5-5.2); SODIUM 137 mEq/L (134-144)
[2016-04-22 05:17] LABS: INR 4.47 (0.83-1.16); PROTIME(PATIENT) 43.4 SEC (12.0-15.0)
[2016-04-22] MEDS ORDERED: ALBUMIN 25% 100 ML IV PRN (07:00)
[2016-04-22] MEDS: AMIODARONE HCL 200 MG TAB PO SCH ×2 (08:16→22:13)
[2016-04-22] MEDS: guaiFENesin 600 MG TAB.ER PO SCH ×2 (08:16→22:13)
[2016-04-22] MEDS: METOPROLOL TARTRATE 25 MG TAB PO SCH (08:17)
[2016-04-22] MEDS: hydrOXYzine HCL 25 MG TAB PO SCH ×2 (08:19→22:13)
[2016-04-22] MEDS: predniSONE 5 MG TAB PO SCH (08:19)
[2016-04-22] MEDS: CALCIUM ACETATE 667 MG CAP PO SCH ×3 (08:19→18:28)
[2016-04-22] MEDS: Mometasone/Formoterol [Dulera 200 Mcg/5 Mcg Inhaler] IH SCH ×2 (08:19→21:43)
[2016-04-22] MEDS: BUDESONIDE 0.25MG/2ML DEYVIAL (5/POUCH) IH SCH ×2 (09:02→21:42)
[2016-04-22] MEDS: LEVALBUTEROL INHALER 200 PUFFS/15 GM MDI IH SCH ×2 (09:02→21:42)
--- NOTE | 2016-04-22 09:54 | SOAPPROG ---
SOJAYY Progress Note Assessment/Plan: Assessment: 1. ESRD HD MWF. Total volume increased, but BP runs low on HD. HD later today, PUF tomorrow. Midodrine might help. 2. A Fib Now in NSR. Will switch to non dialyzable beta nat to see if this would help keep him in NSR. 3. Anemia Will increase dose of Epo. Query whether anemia is being worsened by dapsone. ID agrees. Will switch to MWF Bactrim SS after HD. Dr. Daniel to see tomorrow. Plan: 04/22/16 09:44 Subjective: Doing fair Objective: Vital Signs Temp Pulse Resp BP Pulse Ox 36.7 C 51 L 23 H 133/64 H 89 L 04/22/16 04:00 04/22/16 08:17 04/22/16 04:00 04/22/16 08:17 04/22/16 04:00 Microbiology 04/21/16 13:45 - Final Sputum, Expectorated Laboratory Results 04/22/16 04:30 04/22/16 04:30 04/21/16 04/22/16 04/23/16 05:59 05:59 05:59 Intake Total 350 1120 Balance 350 1120 PT 43.4 SEC (12.0-15.0) H 04/22/16 04:30 INR 4.47 (0.83-1.16) H 04/22/16 04:30 Physical Exam - Physical Exam General Appearance: no apparent distress, cachetic Respiratory: decreased breath sounds Cardiac/Chest: regular rate, rhythm, systolic murmur Extremities: pedal edema Neuro/Psych: oriented x 3 ICD10 Worksheet Patient Problems: Problems Problem Status Diagnosed Chronic Disease Mgmt/Transitional Care Acute Chronic pneumonia Acute ESBL (extended spectrum beta-lactamase) producing bacteria infection Acute 02/27 Hypotension Acute Lung infiltrate Acute Severe sepsis Acute Shortness of breath Acute VRE (vancomycin-resistant Enterococci) Acute 01/11/16 Anemia Acute CHF (congestive heart failure) Acute Chronic renal failure Acute Extended spectrum beta lactamase (ESBL) resistance Acute 02/15/16 Fever Acute History of pneumonia Acute Hypoxemia Acute Hypoxia Acute Mitral valve replaced Acute Palliative care encounter Acute Pneumonia Acute Pneumonia due to Pseudomonas Acute Renal failure Acute Renal transplant recipient Acute Sepsis Acute Weakness Acute
[2016-04-22] MEDS ORDERED: EPOETIN ALFA 10,000 UNIT/ML VIAL SC SCH (10:00)
[2016-04-22] MEDS: SODIUM POLYSTYRENE SULF PO SCH (11:10)
--- NOTE | 2016-04-22 15:28 | HOSPPROG ---
Hospitalist Progress Note Assessment/Plan: * Anemia - suspect ACD + renal failure +/- hemolysis -recent drug induced hemolysis (tacrolimus) - recovering off drug -EPO -d/c dapsone - d/w Dr. 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 Woke up again last night with SOB that wakes him from sleep Objective: Vital Signs Temp Pulse Resp BP Pulse Ox 37.3 C 47 L 22 H 102/58 L 92 04/22/16 11:58 04/22/16 11:58 04/22/16 11:58 04/22/16 11:58 04/22/16 11:58 Microbiology 04/21/16 13:45 - Final Sputum, Expectorated Laboratory Results 04/22/16 04:30 04/22/16 04:30 04/21/16 04/22/16 04/23/16 05:59 05:59 05:59 Intake Total 350 1120 Balance 350 1120 PT 43.4 SEC (12.0-15.0) H 04/22/16 04:30 INR 4.47 (0.83-1.16) H 04/22/16 04:30 CT chest: moderate effusion on left - Physical Exam Constitutional: no apparent distress, appears nourished, not in pain Cardiovascular: regular rate and rhythym, no murmur, rub, or gallop Respiratory: no respiratory distress, no rales or rhonchi, clear to auscultation Gastrointestinal: normoactive bowel sounds, soft, non-tender abdomen, no palpable masses Skin: no rashes or abrasions, no fluctuance, no induration Neurologic: AAOx3, sensation intact bilaterally Psychiatric: interacting appropriately, not anxious, not encephalopathic, thought process linear ICD10 Worksheet Patient Problems: Problems Problem Status Diagnosed Chronic Disease Mgmt/Transitional Care Acute Chronic pneumonia Acute ESBL (extended spectrum beta-lactamase) producing bacteria infection Acute 02/27 Hypotension Acute Lung infiltrate Acute Severe sepsis Acute Shortness of breath Acute VRE (vancomycin-resistant Enterococci) Acute 01/11/16 Anemia Acute CHF (congestive heart failure) Acute Chronic renal failure Acute Extended spectrum beta lactamase (ESBL) resistance Acute 02/15/16 Fever Acute History of pneumonia Acute Hypoxemia Acute Hypoxia Acute Mitral valve replaced Acute Palliative care encounter Acute Pneumonia Acute Pneumonia due to Pseudomonas Acute Renal failure Acute Renal transplant recipient Acute Sepsis Acute Weakness Acute
[2016-04-22] MEDS: LEVALBUTEROL 1.25 MG/3 ML DEYVIAL IH PRN (16:34)
[2016-04-22] MEDS: CARVEDILOL 6.25 MG TAB PO SCH (18:28)
[2016-04-22] MEDS: MONTELUKAST SODIUM 10 MG TAB PO SCH (18:28)
--- NOTE | 2016-04-22 19:02 | SOAPPROG ---
SOAP Progress Note Assessment/Plan: Assessment: Weakness/failure to thrive. In part chronic secondary to his multiple medical problems. Atrial fibrillation was contributing. In normal sinus rhythm now post cardioversion. Feels better compared to admission Atrial fibrillation. S/P Cardioversion. In normal sinus rhythm. Amiodarone increased. On Coumadin, INR therapeutic. Chronic broncho-pneumonia with bronchiectasis, postinflammatory pulmonary fibrosis and pleural disease. Pulmonary status appears to be stable at this point in time. Oxygen requirements at baseline: 2 - 4 L No evidence of a new or recurrent pneumonia clinically at this time. Off antibiotics. Increased effusions bilaterally, left greater than right, may be related to increased fluid retention from kidney disease and inadequate dialysis. For dialysis today with more aggressive fluid removal. COPD. No evidence of exacerbation. On inhaled therapies and montelukast. Hypotension: Resolved. Chronic renal failure. On hemodialysis. Chronic anemia: Hematocrit 24, drifting down.. Hx immunodeficiency, etc. Plan: Continue care. Hemodialysis with fluid removal. Surveillance sputum cultures sent, but may be positive for organisms in the absence pneumonia or an exacerbation of bronchiectasis. No indication for antibiotics currently. Cont Coumadin. May need left-sided thoracentesis if fluid does not resolve with more aggressive dialysis. Subjective: Getting hemodialysis today. O2 requirements less. Intermittent cough, chronic , persists. Objective: Vital Signs Temp Pulse Resp BP Pulse Ox 36.7 C 59 L 16 112/52 L 92 04/22/16 16:00 04/22/16 18:30 04/22/16 16:35 04/22/16 18:30 04/22/16 16:35 Microbiology 04/21/16 13:45 - Final Sputum, Expectorated Laboratory Results 04/22/16 04:30 04/22/16 04:30 04/21/16 04/22/16 04/23/16 05:59 05:59 05:59 Intake Total 350 1120 540 Balance 350 1120 540 PT 43.4 SEC (12.0-15.0) H 04/22/16 04:30 INR 4.47 (0.83-1.16) H 04/22/16 04:30 Physical Exam - Physical Exam General Appearance: alert, no apparent distress, thin EENT: other (nc at 2L) Neck: normal inspection Respiratory: decreased breath sounds, rales (Few at left base), other (Some central congestion with cough, no change), No rhonchi, No wheezing Cardiac/Chest: regular rate, rhythm Abdomen: normal bowel sounds, non-tender, soft ICD10 Worksheet Patient Problems: Problems Problem Status Diagnosed Chronic Disease Mgmt/Transitional Care Acute Chronic pneumonia Acute ESBL (extended spectrum beta-lactamase) producing bacteria infection Acute 02/27 Hypotension Acute Lung infiltrate Acute Severe sepsis Acute Shortness of breath Acute VRE (vancomycin-resistant Enterococci) Acute 01/11/16 Anemia Acute CHF (congestive heart failure) Acute Chronic renal failure Acute Extended spectrum beta lactamase (ESBL) resistance Acute 02/15/16 Fever Acute History of pneumonia Acute Hypoxemia Acute Hypoxia Acute Mitral valve replaced Acute Palliative care encounter Acute Pneumonia Acute Pneumonia due to Pseudomonas Acute Renal failure Acute Renal transplant recipient Acute Sepsis Acute Weakness Acute
--- NOTE | 2016-04-22 19:14 | PDCARPN ---
Cardiology Progress Note Chief Complaint: Patient reports ongoing shortness of breath. Assessment/Plan: Assessment: 1st day that a of seen patient, have been asked to Re see patient for this hospitalization regarding amiodarone. 66 year with history of end-stage renal disease, hemodialysis, failed renal transplant, pneumonia, mitral valve replacement, ongoing anemia (thought secondary to her renal disease), known history of paroxysmal atrial fibrillation. Admitted with appear to be septic shock on 04/12/2016. Had been on home dose of amiodarone and metoprolol. Underwent CLEM/ cardioversion on 04/15/2016. Clem noted normal LV size and function , no thrombus detected in the left atrial appendage, mitral valve functioning within normal limits. Patient was successfully cardioverted to sinus rhythm. Had home dose of amiodarone increased to 400 mg twice daily for Re bolusing, and switch from metoprolol to carvedilol due to less likely to be dialyzed out. Has been transfused packed red blood cells, is undergoing hemodialysis. Instituted initially on heparin with bridge to warfarin, now supratherapeutic ( INR 4.47). Patient denies of any chest pain, reports shortness of breath is improved. Question concerns about possible pneumonia, being followed by internal medicine. Has been maintaining sinus rhythm since cardioversion. Noted to times to have lower heart rate in the 40s, asymptomatic. Plan: 1. Paroxysmal atrial fibrillation: Currently in sinus rhythm, with episodes of bradycardia in the 40s, will decrease amiodarone dose to 200 mg twice daily. Continue on current dose of carvedilol, repeat electrocardiogram in a.m.. Patient remains on warfarin therapy, being followed by pharmacy, currently on hold due to supratherapeutic INRs, potentially will improve with lower dose of amiodarone. 2. Acute on chronic respiratory therapy: Patient noted with recurring pleural effusion, unable to do thoracentesis due to on warfarin. Discontinuing or for would place patient at higher risk of thrombotic event especially since cardioversion is less than a week ago. Continue on dialysis. 3. End-stage renal disease: Continue on hemodialysis. 4. Anemia: H&H dropped today to 7.7, 24.2. On EPL, ID and nephrology question potentially worsen due to dapsone, D/C 5. Mitral valve disease: Status post mitral valve replacement, CLEM showing functioning within normal limits 04/22/16 19:02 Subjective: Patient reports ongoing shortness of breath, denies of any chest pain or pressure. Denies of any palpitations, lightheadedness. Currently on dialysis Reviewed/Discussed With: hospitalist, multidisciplinary team (Pharmacy team), other (DR Jimenez) Objective: Vital Signs (8 Hrs) Temp Pulse Resp BP Pulse Ox 04/22/16 18:30 59 L 112/52 L 04/22/16 16:35 58 L 16 92 04/22/16 16:00 36.7 C 52 L 16 116/64 91 L 04/22/16 11:58 37.3 C 47 L 22 H 102/58 L 92 Intake/Output (24 Hrs) 04/21/16 04/22/16 04/23/16 05:59 05:59 05:59 Intake Total 350 1120 540 Balance 350 1120 540 Intake: Oral (ml) 350 1120 540 Other: Weight 63.7 kg 64.6 kg Intake Quantity Yes Yes Sufficient Number of Voids Toilet 1 Number of Stools Toilet 1 1 Result Diagrams: 04/22/16 04:30 04/22/16 04:30 - Physical Exam Constitutional: WDWN Ears, Nose, Mouth, Throat: moist mucous membranes Cardiovascular: regular rate and rhythm, no rubs, no gallops, systolic murmur ( 1 to 2/6 along left sternal border), jugular vein distention (7 cm above sternal notch at 45 degree angle), pulses symmetric bilat, carotid bruit Peripheral Pulses: 1+: dorsalis-pedis (R), dorsalis-pedis (L), 2+: carotid (R), carotid (L) Respiratory: other (Diminished in bases bilateral, no rhonchi, rales, or wheezing noted.) Gastrointestinal: normoactive bowel sounds Skin: warm, no edema, other (Pale) Neurologic: AAOx3 Psychiatric: cooperative, interactive, following commands, not anxious ICD10 Worksheet Patient Problems: Problems Problem Status Diagnosed Chronic Disease Mgmt/Transitional Care Acute Chronic pneumonia Acute ESBL (extended spectrum beta-lactamase) producing bacteria infection Acute 02/27 Hypotension Acute Lung infiltrate Acute Severe sepsis Acute Shortness of breath Acute VRE (vancomycin-resistant Enterococci) Acute 01/11/16 Anemia Acute CHF (congestive heart failure) Acute Chronic renal failure Acute Extended spectrum beta lactamase (ESBL) resistance Acute 02/15/16 Fever Acute History of pneumonia Acute Hypoxemia Acute Hypoxia Acute Mitral valve replaced Acute Palliative care encounter Acute Pneumonia Acute Pneumonia due to Pseudomonas Acute Renal failure Acute Renal transplant recipient Acute Sepsis Acute Weakness Acute
[2016-04-22] MEDS ORDERED: HEPARIN 50,000 UNIT/10 ML VIAL ONE (20:11)
[2016-04-22] MEDS: DIAZEPAM 5 MG TAB PO PRN (22:13)
[2016-04-22] MEDS: NEPHROVITE FOLIC ACID/VIT B&C 1 TAB PO SCH (22:14)
[2016-04-23] MEDS: TIOTROPIUM INHALER 18 MCG/DOSE 5 DOSE/MDI IH SCH ×2 (00:25→21:15)
[2016-04-23 06:21] LABS: INR 3.86 (0.83-1.16); PROTIME(PATIENT) 38.6 SEC (12.0-15.0)
[2016-04-23 06:53] LABS: % IMMATURE GRANULYOCYTES 0.4 % (0.0-1.1); ABSOLUTE IMMATURE GRANULOCYTES 0.03 10^3/uL (0.00-0.10); ADD DIFF? NO; ADD MORPH? NO; ADD SCAN? NO; ATYPICAL LYMPHOCYTE FLAG 0 (0-99); FRAGMENT RBC FLAG 20 (0-99); HEMOGLOBIN 7.4 g/dL (13.7-17.5); LEFT SHIFT FLG 0 (0-99); LIPEMIA HEMOLYSIS FLAG 80 (0-99); MEAN CELL HEMOGLOBIN 33.3 pg (27.9-34.1); MEAN CELL HEMOGLOBIN CONCENTR. 32.2 g/dL (32.4-36.7); MEAN CELL VOLUME 103.6 fL (81.5-99.8); PLATELET CLUMPS FLAG 0 (0-99); PLATELET COUNT 232 10^3/uL (150-400); RED BLOOD CELL COUNT 2.22 10^6/uL (4.40-6.38)
[2016-04-23] MEDS: guaiFENesin 600 MG TAB.ER PO SCH ×2 (08:10→21:56)
[2016-04-23] MEDS: predniSONE 5 MG TAB PO SCH (08:10)
[2016-04-23] MEDS: hydrOXYzine HCL 25 MG TAB PO SCH ×2 (08:10→21:56)
[2016-04-23] MEDS: SODIUM POLYSTYRENE SULF PO SCH (08:10)
[2016-04-23] MEDS: CALCIUM ACETATE 667 MG CAP PO SCH ×3 (08:10→18:20)
--- NOTE | 2016-04-23 09:08 | CPEKG ---
Heart Rate: 52 RR Interval: 1154 P-R Interval: 160 QRSD Interval: 102 QT Interval: 496 QTC Interval: 462 P Ll[place]: 96 QRS [place]: -1 T Wave [place]: 74 EKG Severity - NORMAL ECG - EKG Impression: SINUS RHYTHM EKG Impression: LOW VOLTAGE TO FRONTAL LEADS Electronically Signed By: Gurinder Parks 24-Apr-2016 08:46:25
--- NOTE | 2016-04-23 09:11 | SOAPPROG ---
SOAP Progress Note Assessment/Plan: Assessment:Plan: ESRD-stable Outpatient dialysis MWF at [facility] -plan for next Hd on Friday Volume overload-plan for 2 Kg UF with dialysis tomorrow Heme-Hct 23 -seen by hematology -off dapsone -on aranesp Access-stable 04/23/16 09:10 Subjective: stable on dialysis, undergoing ultrafiltration for 2 liters Objective: Vital Signs Temp Pulse Resp BP Pulse Ox 36.4 C 56 L 18 110/54 L 92 04/23/16 08:00 04/23/16 08:00 04/23/16 08:00 04/23/16 08:00 04/23/16 08:00 Microbiology 04/21/16 13:45 - Final Sputum, Expectorated Laboratory Results 04/23/16 05:45 04/22/16 04:30 04/22/16 04/23/16 04/24/16 05:59 05:59 05:59 Intake Total 1120 540 Balance 1120 540 PT 38.6 SEC (12.0-15.0) H 04/23/16 05:45 INR 3.86 (0.83-1.16) H 04/23/16 05:45 Physical Exam - Physical Exam General Appearance: alert, no apparent distress, thin EENT: normal ENT inspection Neck: full range of motion Respiratory: decreased breath sounds (1/2 up bilaterally) Cardiac/Chest: regular rate, rhythm, systolic murmur Abdomen: normal bowel sounds, non-tender, soft Extremities: swelling (2+ edema) ICD10 Worksheet Patient Problems: Problems Problem Status Onset Chronic pneumonia Acute Anemia Acute CHF (congestive heart failure) Acute Chronic Disease Mgmt/Transitional Care Acute Chronic renal failure Acute ESBL (extended spectrum beta-lactamase) producing bacteria infection Acute Extended spectrum beta lactamase (ESBL) resistance Acute 02/15/16 Fever Acute History of pneumonia Acute Hypotension Acute Hypoxemia Acute Hypoxia Acute Lung infiltrate Acute Mitral valve replaced Acute Palliative care encounter Acute Pneumonia Acute Pneumonia due to Pseudomonas Acute Renal failure Acute Renal transplant recipient Acute Sepsis Acute Severe sepsis Acute Shortness of breath Acute VRE (vancomycin-resistant Enterococci) Acute 01/11/16 Weakness Acute
[2016-04-23] MEDS: BUDESONIDE 0.25MG/2ML DEYVIAL (5/POUCH) IH SCH ×2 (09:20→21:14)
[2016-04-23] MEDS: LEVALBUTEROL INHALER 200 PUFFS/15 GM MDI IH SCH ×2 (09:20→21:15)
[2016-04-23] MEDS: Mometasone/Formoterol [Dulera 200 Mcg/5 Mcg Inhaler] IH SCH ×2 (09:26→21:20)
[2016-04-23] MEDS: AMIODARONE HCL 200 MG TAB PO SCH ×2 (10:24→21:56)
[2016-04-23] MEDS: CARVEDILOL 6.25 MG TAB PO SCH ×2 (10:24→18:20)
--- NOTE | 2016-04-23 16:22 | HOSPPROG ---
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 -prednisone 5mg -consider transplant nephrectomy * ESRD - chronic HD * Hypotension - suspect hypovolemia due to anemia -resolved * Afib s/p cardioversion -amiodarone decreased by cardiology -change metoprolol to coreg as metoprolol is dialyzed off -INR therapeutic on warfarin * Bronchiectasis - h/o ESBL/pseudomonas pneumonia -isolation * COPD * Hypogammaglobulinemia - intermittent IVIG Subjective: SOB better since increased PUF Objective: Vital Signs Temp Pulse Resp BP Pulse Ox 36.4 C 57 L 16 102/50 L 94 04/23/16 12:00 04/23/16 12:00 04/23/16 09:26 04/23/16 12:00 04/23/16 12:00 Microbiology 04/21/16 13:45 - Final Sputum, Expectorated Sputum Culture - Final Laboratory Results 04/23/16 05:45 04/22/16 04:30 04/22/16 04/23/16 04/24/16 05:59 05:59 05:59 Intake Total 1120 540 Balance 1120 540 PT 38.6 SEC (12.0-15.0) H 04/23/16 05:45 INR 3.86 (0.83-1.16) H 04/23/16 05:45 - Physical Exam Constitutional: no apparent distress, appears nourished, not in pain Cardiovascular: regular rate and rhythym, no murmur, rub, or gallop, edema (less ) Respiratory: no respiratory distress, no rales or rhonchi, clear to auscultation Gastrointestinal: normoactive bowel sounds, soft, non-tender abdomen, no palpable masses Skin: no rashes or abrasions, no fluctuance, no induration Neurologic: AAOx3, sensation intact bilaterally Psychiatric: interacting appropriately, not anxious, not encephalopathic, thought process linear ICD10 Worksheet Patient Problems: Problems Problem Status Onset Chronic pneumonia Acute Anemia Acute CHF (congestive heart failure) Acute Chronic Disease Mgmt/Transitional Care Acute Chronic renal failure Acute ESBL (extended spectrum beta-lactamase) producing bacteria infection Acute Extended spectrum beta lactamase (ESBL) resistance Acute 02/15/16 Fever Acute History of pneumonia Acute Hypotension Acute Hypoxemia Acute Hypoxia Acute Lung infiltrate Acute Mitral valve replaced Acute Palliative care encounter Acute Pneumonia Acute Pneumonia due to Pseudomonas Acute Renal failure Acute Renal transplant recipient Acute Sepsis Acute Severe sepsis Acute Shortness of breath Acute VRE (vancomycin-resistant Enterococci) Acute 01/11/16 Weakness Acute
--- NOTE | 2016-04-23 17:38 | PDCARPN ---
Cardiology Progress Note Chief Complaint: Patient reports ongoing fatigue symptoms. Assessment/Plan: Assessment: 66 year with history of end-stage renal disease, hemodialysis, failed renal transplant, pneumonia, mitral valve replacement, ongoing anemia (thought secondary to her renal disease), known history of paroxysmal atrial fibrillation. Admitted with appear to be septic shock on 04/12/2016. Had been on home dose of amiodarone and metoprolol. Underwent CLEM/ cardioversion on 2016. Clem noted normal LV size and function, no thrombus detected in the left atrial appendage, mitral valve functioning within normal limits. Patient was successfully cardioverted to sinus rhythm. Had home dose of amiodarone increased to 400 mg twice daily for Re bolusing, and switch from metoprolol to carvedilol due to less likely to be dialyzed out. Has been anemic during hospitalization, and has had 1 unit of packed red blood cells transfused. Noted to be mildly bradycardic with heart rates dropping down into the 40s, and supratherapeutic INRs. Amiodarone decreased to 200 mg p.o. twice daily yesterday. Heart rate improved with no more dropping into the 40s, sinus rhythm , occasional PAC. No further episodes of atrial fibrillation noted. H&H mostly unchanged, 7.4 and 23 today. INR remain supratherapeutic, 3.86, warfarin being monitored by pharmacy. A.m. electrocardiogram shows sinus bradycardia with ventricular rate at 52 BPM, slow R-wave progression in anterior leads. Patient denies of any palpitations, chest pain or pressure. No worsening in shortness of breath. Plan: 1. Paroxysmal atrial fibrillation: Currently in sinus rhythm, no further episodes of bradycardia with rates in the 40, continue on current amiodarone of 200 mg p.o. twice daily and carvedilol for rate and rhythm management. Supratherapeutic INRs Re bolusing of amiodarone, trending down, today 3.86. Warfarin currently on hold. 2. Acute on chronic respiratory therapy: Patient noted with recurring pleural effusion, unable to do thoracentesis due to on warfarin. Discontinuing or for would place patient at higher risk of thrombotic event especially since cardioversion is less than a week ago. Continue on dialysis. 3. End-stage renal disease: Off a from dialysis, on dialysis plan for a.m.. 4. Anemia: H&H stable today, On EPL, supratherapeutic INRs with no warfarin given today. 5. Mitral valve disease: Status post mitral valve replacement, CLEM showing functioning within normal limits 04/23/16 17:33 Subjective: Patient denies of any chest pain or pressure, continues to have shortness of breath with exertion, and fatigue. Denies of any palpitations, lightheadedness , near-syncope or syncopal events. Reviewed/Discussed With: other (Dr Jimenez) Objective: Vital Signs (8 Hrs) Temp Pulse Resp BP Pulse Ox 04/23/16 16:00 37.5 C 54 L 18 104/49 L 95 04/23/16 12:00 36.4 C 57 L 102/50 L 94 04/23/16 10:24 57 L 100/54 L Intake/Output (24 Hrs) 04/22/16 04/23/16 04/24/16 05:59 05:59 05:59 Intake Total 1120 540 Balance 1120 540 Intake: Oral (ml) 1120 540 Other: Weight 64.6 kg 62.9 kg Intake Quantity Yes Sufficient Number of Voids Toilet 1 Number of Stools Toilet 1 Result Diagrams: 04/24/16 04:20 04/24/16 04:20 - Physical Exam Constitutional: no apparent distress, other (Pale) Ears, Nose, Mouth, Throat: moist mucous membranes Cardiovascular: regular rate and rhythm, no murmurs, no rubs, no gallops, pulses symmetric bilat, No jugular vein distention, No carotid bruit Peripheral Pulses: 1+: dorsalis-pedis (R), dorsalis-pedis (L) Respiratory: other (Clear, but diminished in bases bilateral, no rhonchi, rales , or wheezing noted.) Gastrointestinal: normoactive bowel sounds Skin: warm, no edema, other (Pale) Neurologic: AAOx3 Psychiatric: cooperative, following commands, not anxious ICD10 Worksheet Patient Problems: Problems Problem Status Onset Chronic pneumonia Acute Anemia Acute CHF (congestive heart failure) Acute Chronic Disease Mgmt/Transitional Care Acute Chronic renal failure Acute ESBL (extended spectrum beta-lactamase) producing bacteria infection Acute Extended spectrum beta lactamase (ESBL) resistance Acute 02/15/16 Fever Acute History of pneumonia Acute Hypotension Acute Hypoxemia Acute Hypoxia Acute Lung infiltrate Acute Mitral valve replaced Acute Palliative care encounter Acute Pneumonia Acute Pneumonia due to Pseudomonas Acute Renal failure Acute Renal transplant recipient Acute Sepsis Acute Severe sepsis Acute Shortness of breath Acute VRE (vancomycin-resistant Enterococci) Acute 01/11/16 Weakness Acute
[2016-04-23] MEDS: MONTELUKAST SODIUM 10 MG TAB PO SCH (18:20)
--- NOTE | 2016-04-23 18:56 | PCMIDPN ---
Assessment/Plan: #recurrent pneumonia with underlying bronchiectasis, and chronic aspiration: No evidence of active infection currently. 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 Patient is now off Prograf. Risk for recurrent Pneumocystis is relatively low. Discussed options including toxicities related to pentamidine and low dose Bactrim. Patient desires to try a period off Pneumocystis prophylaxis recognizing there is some risk for recurrent disease but it is low. would reassess at 1 month. -- patient will contact me if further questions #ESRD: Clinically patient is volume overloaded, patient is staying through for dialysis Subjective: 66-year-old male well known to me with end-stage renal disease status post transplant (now failed) , IgG deficiency. His most recent problems are due to recurrent pneumonia. Factors that contributed to recurrence of pneumonia include underlying bronchiectasis, immunoglobulin deficiency, and ongoing Prograf therapy. Since that time patient was admitted to the hospital on 2015 through 03/09/2016, again for recurrent pneumonia. BAL isolate from 2015 showed ESBL E coli. Patient was started on meropenem 500 mg IV daily to be given after dialysis on dialysis days. Over this hospitalization Prograf was discontinued and it was identified that patient had silent aspiration and esophageal dysmotility. Patient was transferred to rehab facility 03/09/2016 and was changed to Bactrim therapy for ESBL E coli pneumonia due to possible toxicity from meropenem (hemolytic anemia). Patient completed Bactrim therapy And at that time resumed dapsone for Pneumocystis prophylaxis. Patient was admitted with shortness of breath 04/13/2016 thought secondary to atrial fibrillation. Also initially was treated for possible pneumonia with meropenem through April 16. As part of his workup of fatigue patient has been noted to have anemia with a component of hemolysis with concern of a contributing factor dapsone. Overall patient is feeling better today with minimal respiratory complaints. Objective: Vital Signs Temp Pulse Resp BP Pulse Ox 37.5 C 54 L 18 104/49 L 95 04/23/16 16:00 04/23/16 16:00 04/23/16 16:00 04/23/16 16:00 04/23/16 16:00 Microbiology 04/21/16 13:45 - Final Sputum, Expectorated Sputum Culture - Final Laboratory Results 04/23/16 05:45 04/22/16 04:30 04/22/16 04/23/16 04/24/16 05:59 05:59 05:59 Intake Total 1120 540 450 Balance 1120 540 450 - Physical Exam General Appearance: alert, no apparent distress EENT: pale conjunctiva Respiratory: other ( decreased breath sounds in the left base), No accessory muscle use, No crackles Neck: supple Cardiac/Chest: regular rate, rhythm Extremities: pedal edema ( 1 to 2+) Skin: pallor, No rash Neuro/Psych: alert, normal mood/affect, oriented x 3 ICD10 Worksheet Patient Problems: Problems Problem Status Onset Chronic pneumonia Acute Anemia Acute CHF (congestive heart failure) Acute Chronic Disease Mgmt/Transitional Care Acute Chronic renal failure Acute ESBL (extended spectrum beta-lactamase) producing bacteria infection Acute Extended spectrum beta lactamase (ESBL) resistance Acute 02/15/16 Fever Acute History of pneumonia Acute Hypotension Acute Hypoxemia Acute Hypoxia Acute Lung infiltrate Acute Mitral valve replaced Acute Palliative care encounter Acute Pneumonia Acute Pneumonia due to Pseudomonas Acute Renal failure Acute Renal transplant recipient Acute Sepsis Acute Severe sepsis Acute Shortness of breath Acute VRE (vancomycin-resistant Enterococci) Acute 01/11/16 Weakness Acute
[2016-04-23] MEDS ORDERED: HEPARIN 50,000 UNIT/10 ML VIAL ONE (19:01)
[2016-04-23] MEDS: NEPHROVITE FOLIC ACID/VIT B&C 1 TAB PO SCH (21:56)
[2016-04-23] MEDS: DIAZEPAM 5 MG TAB PO PRN (21:56)
[2016-04-24] MEDS: LEVALBUTEROL 1.25 MG/3 ML DEYVIAL IH PRN ×2 (03:44→14:58)
[2016-04-24 04:28] LABS: % IMMATURE GRANULYOCYTES 0.2 % (0.0-1.1); ABSOLUTE IMMATURE GRANULOCYTES 0.02 10^3/uL (0.00-0.10); ADD DIFF? NO; ADD MORPH? NO; ADD SCAN? NO; ATYPICAL LYMPHOCYTE FLAG 0 (0-99); FRAGMENT RBC FLAG 0 (0-99); HEMATOCRIT 24.1 % (40.0-51.0); HEMOGLOBIN 7.7 g/dL (13.7-17.5); LEFT SHIFT FLG 0 (0-99); LIPEMIA HEMOLYSIS FLAG 80 (0-99); MEAN CELL HEMOGLOBIN 33.6 pg (27.9-34.1); MEAN CELL VOLUME 105.2 fL (81.5-99.8); MEAN PLATELET VOLUME 9.2 fL (8.7-11.7); PLATELET CLUMPS FLAG 0 (0-99); PLATELET COUNT 193 10^3/uL (150-400); RED BLOOD CELL COUNT 2.29 10^6/uL (4.40-6.38); RED CELL DISTRIBUTION WIDTH 17.4 % (11.5-15.2)
[2016-04-24 04:35] LABS: INR 2.58 (0.83-1.16)
[2016-04-24 04:57] LABS: ALBUMIN 2.9 g/dL (3.5-5.0); ANION GAP 9 mEq/L (8-16); CARBON DIOXIDE 28 mEq/l (22-31); CHLORIDE 99 mEq/L (97-110); CREATININE 5.2 mg/dL (0.7-1.3); GLOMERULAR FILTRATION RATE 11; GLUCOSE 109 mg/dL (70-100); SODIUM 136 mEq/L (134-144)
[2016-04-24] MEDS: AMIODARONE HCL 200 MG TAB PO SCH ×2 (09:44→21:31)
[2016-04-24] MEDS: CALCIUM ACETATE 667 MG CAP PO SCH ×3 (09:44→19:10)
[2016-04-24] MEDS: CARVEDILOL 6.25 MG TAB PO SCH ×2 (09:44→19:10)
[2016-04-24] MEDS: guaiFENesin 600 MG TAB.ER PO SCH ×2 (09:44→21:31)
[2016-04-24] MEDS: predniSONE 5 MG TAB PO SCH (09:44)
[2016-04-24] MEDS: hydrOXYzine HCL 25 MG TAB PO SCH ×2 (09:44→21:31)
[2016-04-24] MEDS: SODIUM POLYSTYRENE SULF PO SCH (09:44)
[2016-04-24] MEDS: BUDESONIDE 0.25MG/2ML DEYVIAL (5/POUCH) IH SCH ×2 (11:01→21:45)
[2016-04-24] MEDS: LEVALBUTEROL INHALER 200 PUFFS/15 GM MDI IH SCH ×2 (11:02→21:45)
[2016-04-24] MEDS: Mometasone/Formoterol [Dulera 200 Mcg/5 Mcg Inhaler] IH SCH ×2 (11:08→21:52)
--- NOTE | 2016-04-24 11:25 | SOAPPROG ---
[facility] Progress Note Assessment/Plan: Assessment: 1. ESRD. HD today per MWF schedule. PUF done yesterday. Still has some volume, should be ok to wait until Friday. 2. Atrial fibrillation. S/p DCCV. On amiodarone. 3. Anemia. Hgb drifting down. MCV has trended up over last 3 months. s/p PRBCs. Stopped dapsone. Heme has seen. 4. Failed kidney tx. Maintained on pred. Tacrolimus held. Plan: 04/17/16 09:21 04/17/16 09:21 04/24/16 11:23 04/24/16 11:24 Subjective: Had ultrafiltration yesterday, 2 L removed. No complaints today. Objective: Vital Signs Temp Pulse Resp BP Pulse Ox 36.9 C 57 L 22 H 121/61 H 94 04/24/16 08:00 04/24/16 11:05 04/24/16 11:05 04/24/16 08:00 04/24/16 11:05 Microbiology 04/21/16 13:45 - Final Sputum, Expectorated Sputum Culture - Final Laboratory Results 04/24/16 04:20 04/24/16 04:20 04/23/16 04/24/16 04/25/16 05:59 05:59 05:59 Intake Total 540 650 Balance 540 650 PT 28.0 SEC (12.0-15.0) H D 04/24/16 04:20 INR 2.58 (0.83-1.16) H 04/24/16 04:20 Comfortable, in chair RRR, no m/g/r Decr br sounds in L base, crackles in R base Abdom soft, nt 2+ LE pitting edema ICD10 Worksheet Patient Problems: Problems Problem Status Onset Pneumonia Acute Mitral valve replaced Acute Extended spectrum beta lactamase (ESBL) resistance Acute 02/15/16 Renal transplant recipient Acute Chronic renal failure Acute CHF (congestive heart failure) Acute Anemia Acute Hypoxemia Acute Renal failure Acute Shortness of breath Acute Lung infiltrate Acute Hypotension Acute Severe sepsis Acute Pneumonia due to Pseudomonas Acute Hypoxia Acute Sepsis Acute Chronic Disease Mgmt/Transitional Care Acute Fever Acute History of pneumonia Acute VRE (vancomycin-resistant Enterococci) Acute 01/11/16 Palliative care encounter Acute Weakness Acute Chronic pneumonia Acute ESBL (extended spectrum beta-lactamase) producing bacteria infection Acute
--- NOTE | 2016-04-24 13:01 | SOAPPROG ---
SO[facility] Progress Note Assessment/Plan: Assessment/Plan: * Weakness/failure to thrive. In part chronic secondary to his multiple medical problems. Atrial fibrillation was contributing. In normal sinus rhythm now post cardioversion. Feels better compared to admission * Atrial fibrillation. S/P Cardioversion. In normal sinus rhythm. Amiodarone increased. On Coumadin, INR therapeutic. * Chronic broncho-pneumonia with bronchiectasis, postinflammatory pulmonary fibrosis and pleural disease. Pulmonary status appears to be stable at this point in time. Oxygen requirements at baseline: 2 - 4 L No evidence of a new or recurrent pneumonia clinically at this time. Off antibiotics. Increased effusions bilaterally, left greater than right, may be related to increased fluid retention from kidney disease and inadequate dialysis. For dialysis today with more aggressive fluid removal. * COPD. No evidence of exacerbation. On inhaled therapies and montelukast. * Hypotension: Resolved. * Chronic renal failure. On hemodialysis. * Chronic anemia: Hematocrit 24, drifting down.. * Hx immunodeficiency, etc. Subjective: Comfortable. Breathing easily. Minimal cough. Objective: Vital Signs Temp Pulse Resp BP Pulse Ox 36.0 C 63 20 117/60 95 04/24/16 12:00 04/24/16 12:00 04/24/16 12:00 04/24/16 12:00 04/24/16 12:00 Microbiology 04/21/16 13:45 - Final Sputum, Expectorated Sputum Culture - Final Laboratory Results 04/24/16 04:20 04/24/16 04:20 04/23/16 04/24/16 04/25/16 05:59 05:59 05:59 Intake Total 540 650 Balance 540 650 PT 28.0 SEC (12.0-15.0) H D 04/24/16 04:20 INR 2.58 (0.83-1.16) H 04/24/16 04:20 Physical Exam - Physical Exam General Appearance: alert, no apparent distress EENT: PERRL/EOMI, normal ENT inspection Neck: non-tender, full range of motion, supple, normal inspection Respiratory: crackles (few), No respiratory distress, No accessory muscle use, No stridor, No wheezing Cardiac/Chest: normal peripheral pulses, systolic murmur Abdomen: normal bowel sounds, non-tender, soft Male Genitalia: deferred Rectal: deferred Back: Normal inspection Skin: normal color, warm/dry Extremities: normal range of motion, non-tender, normal inspection, normal capillary refill Neuro/Psych: no motor/sensory deficits, alert, normal mood/affect, oriented x 3 ICD10 Worksheet Patient Problems: Problems Problem Status Onset Chronic pneumonia Acute Anemia Acute CHF (congestive heart failure) Acute Chronic Disease Mgmt/Transitional Care Acute Chronic renal failure Acute ESBL (extended spectrum beta-lactamase) producing bacteria infection Acute Extended spectrum beta lactamase (ESBL) resistance Acute 02/15/16 Fever Acute History of pneumonia Acute Hypotension Acute Hypoxemia Acute Hypoxia Acute Lung infiltrate Acute Mitral valve replaced Acute Palliative care encounter Acute Pneumonia Acute Pneumonia due to Pseudomonas Acute Renal failure Acute Renal transplant recipient Acute Sepsis Acute Severe sepsis Acute Shortness of breath Acute VRE (vancomycin-resistant Enterococci) Acute 01/11/16 Weakness Acute
[2016-04-24] MEDS ORDERED: WARFARIN SODIUM 2.5 MG TAB PO ONE ×3 (16:00→20:00)
--- NOTE | 2016-04-24 17:35 | HOSPPROG ---
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 Edema is increasing again Objective: Vital Signs Temp Pulse Resp BP Pulse Ox 36.0 C 61 16 117/60 95 04/24/16 12:00 04/24/16 15:02 04/24/16 15:02 04/24/16 12:00 04/24/16 15:02 Microbiology 04/21/16 13:45 - Final Sputum, Expectorated Sputum Culture - Final Laboratory Results 04/24/16 04:20 04/24/16 04:20 04/23/16 04/24/16 04/25/16 05:59 05:59 05:59 Intake Total 540 650 Balance 540 650 PT 28.0 SEC (12.0-15.0) H D 04/24/16 04:20 INR 2.58 (0.83-1.16) H 04/24/16 04:20 - Physical Exam Constitutional: no apparent distress, appears nourished, not in pain Cardiovascular: regular rate and rhythym, no murmur, rub, or gallop Respiratory: no respiratory distress, no rales or rhonchi, clear to auscultation Gastrointestinal: normoactive bowel sounds, soft, non-tender abdomen, no palpable masses Skin: no rashes or abrasions, no fluctuance, no induration Neurologic: AAOx3, sensation intact bilaterally Psychiatric: interacting appropriately, not anxious, not encephalopathic, thought process linear ICD10 Worksheet Patient Problems: Problems Problem Status Onset Chronic pneumonia Acute Anemia Acute CHF (congestive heart failure) Acute Chronic Disease Mgmt/Transitional Care Acute Chronic renal failure Acute ESBL (extended spectrum beta-lactamase) producing bacteria infection Acute Extended spectrum beta lactamase (ESBL) resistance Acute 02/15/16 Fever Acute History of pneumonia Acute Hypotension Acute Hypoxemia Acute Hypoxia Acute Lung infiltrate Acute Mitral valve replaced Acute Palliative care encounter Acute Pneumonia Acute Pneumonia due to Pseudomonas Acute Renal failure Acute Renal transplant recipient Acute Sepsis Acute Severe sepsis Acute Shortness of breath Acute VRE (vancomycin-resistant Enterococci) Acute 01/11/16 Weakness Acute
[2016-04-24] MEDS: MONTELUKAST SODIUM 10 MG TAB PO SCH (19:10)
--- NOTE | 2016-04-24 19:16 | PDCARPN ---
Cardiology Progress Note Chief Complaint: Patient reports shortness of breath has not worsened. Assessment/Plan: Assessment: 66 year with history of end-stage renal disease, hemodialysis, failed renal transplant, pneumonia, mitral valve replacement, ongoing anemia (thought secondary to her renal disease), known history of paroxysmal atrial fibrillation. Admitted with appear to be septic shock on 04/12/2016. Had been on home dose of amiodarone and metoprolol. Underwent CLEM/ cardioversion on 2016. Clem noted normal LV size and function, no thrombus detected in the left atrial appendage, mitral valve functioning within normal limits. Patient was successfully cardioverted to sinus rhythm. Had home dose of amiodarone increased to 400 mg twice daily for Re bolusing, and switch from metoprolol to carvedilol due to less likely to be dialyzed out. Has been anemic during hospitalization, and has had 1 unit of packed red blood cells transfused. Noted to be mildly bradycardic with heart rates dropping down into the 40s, and supratherapeutic INRs. Amiodarone decreased to 200 mg p.o. twice daily. Today Heart rate averaging 50s to 60s, no atrial fibrillation noted on monitoring. Continues to stay in sinus rhythm. H&H improved. INR therapeutic at this time. Warfarin being controlled by pharmacy. Patient denies of any chest pain or should symptoms suggesting of ischemia. Plan: 1. Paroxysmal atrial fibrillation: Currently in sinus rhythm, no further episodes of bradycardia with rates in the 40, continue on current amiodarone and carvedilol dosage, INR therapeutic, warfarin dosage by pharmacy. 2. Acute on chronic respiratory therapy: Patient noted with recurring pleural effusion, unable to do thoracentesis due to on warfarin. Discontinuing would place patient at higher risk of thrombotic event especially since cardioversion is less than a week ago. Continue on dialysis. 3. End-stage renal disease: Currently on dialysis. 4. Anemia: H&H stable today, On EPL, 5. Mitral valve disease: Status post mitral valve replacement, CLEM showing functioning within normal limits We will sign off at this time, please contact us if any questions or concerns or if we need to Resee patient. 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 04/24/16 19:13 Subjective: Denies of any chest pain or pressure, denies of any palpitations, lightheadedness, or feelings of syncope. Reviewed/Discussed With: hospitalist (Dr Ho), other (Dr Jimenez) Objective: Vital Signs (8 Hrs) Temp Pulse Resp BP Pulse Ox 04/24/16 17:00 36.8 C 67 15 139/62 H 94 04/24/16 15:02 61 16 95 04/24/16 12:00 36.0 C 63 20 117/60 95 Intake/Output (24 Hrs) 04/23/16 04/24/16 04/25/16 05:59 05:59 05:59 Intake Total 540 650 460 Balance 540 650 460 Intake: Oral (ml) 540 650 460 IV Intake (ml) 0 Other: Weight 61.9 kg Number of Voids Toilet 2 Result Diagrams: 04/24/16 04:20 04/24/16 04:20 - Physical Exam Constitutional: WDWN, no apparent distress Ears, Nose, Mouth, Throat: moist mucous membranes Cardiovascular: regular rate and rhythm, no rubs, no gallops, pulses symmetric bilat, No jugular vein distention, No carotid bruit Peripheral Pulses: 2+: carotid (R), carotid (L) Respiratory: other (Lungs diminished in bases, no rhonchi, rales, or wheezing noted.) Gastrointestinal: normoactive bowel sounds Skin: warm, no edema (+2 peripheral edema bilateral lower extremities to thighs. ), other (pale) Neurologic: AAOx3 Psychiatric: cooperative, interactive, following commands ICD10 Worksheet Patient Problems: Problems Problem Status Onset Chronic pneumonia Acute Anemia Acute CHF (congestive heart failure) Acute Chronic Disease Mgmt/Transitional Care Acute Chronic renal failure Acute ESBL (extended spectrum beta-lactamase) producing bacteria infection Acute Extended spectrum beta lactamase (ESBL) resistance Acute 02/15/16 Fever Acute History of pneumonia Acute Hypotension Acute Hypoxemia Acute Hypoxia Acute Lung infiltrate Acute Mitral valve replaced Acute Palliative care encounter Acute Pneumonia Acute Pneumonia due to Pseudomonas Acute Renal failure Acute Renal transplant recipient Acute Sepsis Acute Severe sepsis Acute Shortness of breath Acute VRE (vancomycin-resistant Enterococci) Acute 01/11/16 Weakness Acute
[2016-04-24] MEDS: NEPHROVITE FOLIC ACID/VIT B&C 1 TAB PO SCH (21:31)
[2016-04-24] MEDS: DIAZEPAM 5 MG TAB PO PRN (21:31)
[2016-04-24] MEDS: TIOTROPIUM INHALER 18 MCG/DOSE 5 DOSE/MDI IH SCH (21:45)
[2016-04-25 04:59] LABS: % IMMATURE GRANULYOCYTES 0.4 % (0.0-1.1); ABSOLUTE IMMATURE GRANULOCYTES 0.04 10^3/uL (0.00-0.10); ADD DIFF? NO; ADD MORPH? NO; ADD SCAN? YES; ATYPICAL LYMPHOCYTE FLAG 0 (0-99); FRAGMENT RBC FLAG 0 (0-99); HEMATOCRIT 23.4 % (40.0-51.0); HEMOGLOBIN 7.3 g/dL (13.7-17.5); LEFT SHIFT FLG 0 (0-99); LIPEMIA HEMOLYSIS FLAG 80 (0-99); MEAN CELL HEMOGLOBIN 33.5 pg (27.9-34.1); MEAN CELL HEMOGLOBIN CONCENTR. 31.2 g/dL (32.4-36.7); MEAN CELL VOLUME 107.3 fL (81.5-99.8); MEAN PLATELET VOLUME 9.2 fL (8.7-11.7); PLATELET CLUMPS FLAG 0 (0-99); PLATELET COUNT 187 10^3/uL (150-400); RED BLOOD CELL COUNT 2.18 10^6/uL (4.40-6.38); RED CELL DISTRIBUTION WIDTH 17.4 % (11.5-15.2)
[2016-04-25 05:14] LABS: INR 2.02 (0.83-1.16)
[2016-04-25 05:15] LABS: ALBUMIN 2.7 g/dL (3.5-5.0); ANION GAP 6 mEq/L (8-16); CALCIUM 8.3 mg/dL (8.5-10.4); CARBON DIOXIDE 31 mEq/l (22-31); CHLORIDE 99 mEq/L (97-110); CREATININE 3.5 mg/dL (0.7-1.3); GLOMERULAR FILTRATION RATE 18; GLUCOSE 81 mg/dL (70-100); POTASSIUM 4.3 mEq/L (3.5-5.2); SODIUM 136 mEq/L (134-144)
[2016-04-25 05:33] LABS: SCAN NEGATIVE
[2016-04-25] MEDS: hydrOXYzine HCL 25 MG TAB PO SCH (08:31)
[2016-04-25] MEDS: CALCIUM ACETATE 667 MG CAP PO SCH ×2 (08:31→12:26)
[2016-04-25] MEDS: SODIUM POLYSTYRENE SULF PO SCH (08:31)
[2016-04-25] MEDS: CARVEDILOL 6.25 MG TAB PO SCH (08:32)
[2016-04-25] MEDS: guaiFENesin 600 MG TAB.ER PO SCH (08:32)
[2016-04-25] MEDS: predniSONE 5 MG TAB PO SCH (08:32)
[2016-04-25] MEDS: AMIODARONE HCL 200 MG TAB PO SCH (08:36)
--- NOTE | 2016-04-25 08:38 | SOAPPROG ---
[facility] Progress Note Assessment/Plan: Assessment: 1. ESRD. HD tomorrow per MWF schedule. Still has some volume, will try to UF 3 L tomorrow. 2. Atrial fibrillation. S/p DCCV. On amiodarone. 3. Anemia. Hgb drifting down. MCV has trended up over last 3 months. s/p PRBCs. Stopped dapsone. Heme has seen. 4. Failed kidney tx. Maintained on pred. Tacrolimus held. Plan: 04/17/16 09:21 04/17/16 09:21 04/24/16 11:23 04/24/16 11:24 04/25/16 08:37 Subjective: No new complaints. Objective: Vital Signs Temp Pulse Resp BP Pulse Ox 37.0 C 67 20 117/51 L 91 L 04/25/16 04:00 04/25/16 08:32 04/25/16 04:00 04/25/16 08:32 04/25/16 04:00 Laboratory Results 04/25/16 04:50 04/25/16 04:50 04/24/16 04/25/16 04/26/16 05:59 05:59 05:59 Intake Total 650 560 Balance 650 560 PT 23.0 SEC (12.0-15.0) H 04/25/16 04:50 INR 2.02 (0.83-1.16) H 04/25/16 04:50 Comfortable wm, in bed, just waking up RRR, no m/g/r CTAB Abdom soft, nt 2+ ankle pitting edema ICD10 Worksheet Patient Problems: Problems Problem Status Onset Chronic pneumonia Acute Anemia Acute CHF (congestive heart failure) Acute Chronic Disease Mgmt/Transitional Care Acute Chronic renal failure Acute ESBL (extended spectrum beta-lactamase) producing bacteria infection Acute Extended spectrum beta lactamase (ESBL) resistance Acute 02/15/16 Fever Acute History of pneumonia Acute Hypotension Acute Hypoxemia Acute Hypoxia Acute Lung infiltrate Acute Mitral valve replaced Acute Palliative care encounter Acute Pneumonia Acute Pneumonia due to Pseudomonas Acute Renal failure Acute Renal transplant recipient Acute Sepsis Acute Severe sepsis Acute Shortness of breath Acute VRE (vancomycin-resistant Enterococci) Acute 01/11/16 Weakness Acute
[2016-04-25] MEDS: BUDESONIDE 0.25MG/2ML DEYVIAL (5/POUCH) IH SCH (09:31)
[2016-04-25] MEDS: LEVALBUTEROL INHALER 200 PUFFS/15 GM MDI IH SCH (09:31)
[2016-04-25] MEDS: Mometasone/Formoterol [Dulera 200 Mcg/5 Mcg Inhaler] IH SCH (09:32)
--- NOTE | 2016-04-25 10:28 | PDIAF ---
- Diagnosis Diagnosis: SIRS/hypotension/afib/ESRD Code Status: Full Code - Medication Management Discharge Medications: Medications to Continue on Transfer Levalbuterol 1.25 mg [Xopenex 1.25MG Neb (*)] 1 vial IH Q8 PRN 11/02/12 [Last Taken 02/14/16 08:00] Zafirlukast [Accolate 20 MG] 20 mg PO BID 11/02/12 [Last Taken 04/13/16] predniSONE 5 mg PO DAILY 05/22/15 [Last Taken 04/13/16] Immun Glob G (IgG)/Gly/Iga 50+ [Gamunex-C 5 Gram/50 ml Vial] 25 gm IJ Q30D 11/09 [Last Taken 01/16/16] Tiotropium Inhaler [Spiriva Handihaler] 18 mcg IH HS 11/10/15 [Last Taken ] Calcium Acetate [Phoslo (*)] 1,334 mg PO TIDMEAL #90 cap 12/08/15 [Last Taken ] Budesonide [Pulmicort 0.25MG/2Ml Neb (*)] 0.25 mg IH BID 12/12/15 [Last Taken ] Darbepoetin Cas in Polysorbat [Aranesp] 40 mcg IJ WE 04/13/16 [Last Taken Unknown] Diazepam [Valium 5 MG (*)] 5 mg PO HS PRN 04/13/16 [Last Taken Unknown] Folic Acid/Vitamin B Comp W-C [Dialyvite Tablet] 1 each PO HS 04/13/16 [Last Taken 04/12/16] Hypertonic Saline 7% 1 inh IH 5XD PRN 04/13/16 [Last Taken 04/09/16] Levalbuterol Inhaler [Xopenex Hfa Inhaler (*)] 2 puffs IH BID 04/13/16 [Last Taken 04/13/16] Mometasone/Formoterol [Dulera 200 Mcg/5 Mcg Inhaler] 1 puffs IH BID 04/13/16 [ Last Taken 04/13/16] Sodium Polystyrene Sulf [Kionex SPS Powder (*)] 10 gm PO DAILY PRN 04/13/16 [ Last Taken Unknown] hydrOXYzine HCL [hydrOXYzine HCL (RX)] 25 mg PO BID 04/13/16 [Last Taken ] Amiodarone HCl [Pacerone (*)] 200 mg PO BID #0 tab 04/25/16 [Last Taken Unknown] Carvedilol [Coreg (*)] 6.25 mg PO BIDMEAL #0 tab 04/25/16 [Last Taken Unknown] Epoetin Cas [Procrit 67911 UNIT/ML (*)] 10,000 unit SC Q7D #0 vial 04/25/16 [ Last Taken Unknown] guaiFENesin [Mucinex 600 MG (*)] 600 mg PO BID #0 tab.er 04/25/16 [Last Taken Unknown] Discharge Medications: Refer to the Discharge Home Medication list for PRN reason. - Orders Services needed: Home Care, Registered Nurse, Physical Therapy, Occupational Therapy Home Care Face to Face: I certify that this patient was under my care and that I had the required [id number] encounter meeting the encounter requirements on the discharge day. My findings support the fact that the patient is homebound as defined in CMS Chapter 7 Medicare Benefits Manual 30.1.1, The condition of the patient is such that there exists a normal inability to leave home and consequently, leaving home would require a considerable and taxing effort. Diet Recommendation: potassium restricted - Follow Up Care Current Providers and Referrals: Janelle Daniel MD [Primary Care Provider] -
[2016-04-25 12:33] VITALS: BP 120/54; PULSE 68; RESP 20; TEMP 97.8; O2SAT 91
[2016-04-25] MEDS ORDERED: WARFARIN SODIUM 3 MG TAB PO ONE (16:00)
--- NOTE | 2016-04-25 16:18 | GDS ---
[f rep st] DISCHARGE SUMMARY DISCHARGE DIAGNOSES: 1. Resolved systemic inflammatory response syndrome without documented source of infection. 2. Anemia of chronic disease and possibly hemolysis due to dapsone. 3. Acute on chronic respiratory failure. 4. Recurrent left pleural effusion. 5. End-stage kidney disease due to polycystic kidney disease status post failed renal transplant, on dialysis. 6. Hypotension, resolved. 7. Atrial fibrillation status post cardioversion. 8. Bronchiectasis. 9. Chronic obstructive pulmonary disease. 10. Hypogammaglobinemia. CONSULTANTS: [facility], [facility], Pulmonary Critical Care. HOSPITAL COURSE AND STAY BY PROBLEM: 1. SIRS: The patient was initially admitted to the intensive care unit due to concerns for sepsis. Blood cultures were drawn. Ultimately, the patient was not found to have a source of infection. He was hypotensive on initial presentation and was in atrial fibrillation. Cardiology was consulted where he underwent a SAMINA with cardioversion. He was loaded on amiodarone 400 mg twice daily. He was also started on warfarin. On discharge, Cardiology recommended that he continue on amiodarone 200 mg twice daily. He will need outpatient monitoring of his INR. 2. Atrial fibrillation with RVR. See above. 3. End-stage renal disease, on dialysis: Throughout the patient's stay, he has continued with hemodialysis Friday, Friday, Friday. At this time, he will need to undergo dialysis on 04/26/2016. 4. Multifactorial anemia: The patient received 3 units of packed red blood cells during this hospital stay. We have discontinued his dapsone out of concerns that this could be contributing to his anemia. PHYSICAL EXAM: VITAL SIGNS: On day of discharge, blood pressure 120/54, pulse of 68, respiratory rate 20, O2 saturation 91% on 3 L, temperature afebrile. GENERAL: No acute distress. HEART: S1, S2. LUNGS: Clear. ABDOMEN: Soft. DISCHARGE MEDICATIONS: Please refer to discharge medication reconciliation in [facility]. DISCHARGE INSTRUCTIONS: The patient will be discharged from the hospital with home care. He should have an INR done early next week and will need outpatient followup at [facility] for further monitoring of his atrial fibrillation and dosing of his warfarin. He should continue with dialysis as scheduled Friday, Friday and Friday. greater than 30 minutes were spent on the discharge of this patient /[id number]/MODL MTDD
== END 2016-04-25 13:50 | disposition home or self-care (01) | DRG 308 ==
LOC: F2N 15:11 → F2W 04-17 17:09
PROVIDERS: ADMIT Internal Medicine; ATTEND Internal Medicine
PROC: 02HV33Z Insertion of Infusion Device into Superior Vena Cava, Percutaneous Approach (ICD-10-PCS; 2016-04-13)
PROC: 30233N1 Transfusion of Nonautologous Red Blood Cells into Peripheral Vein, Percutaneous Approach (ICD-10-PCS; 2016-04-13)
PROC: 5A2204Z Restoration of Cardiac Rhythm, Single (ICD-10-PCS; principal; 2016-04-15)
PROC: B246ZZ4 Ultrasonography of Right and Left Heart, Transesophageal (ICD-10-PCS; principal; 2016-04-15)
PROC: 5A1D00Z (ICD-10-PCS; 2016-04-15)
DX: I48.0 Paroxysmal atrial fibrillation (principal); R65.10 Systemic inflammatory response syndrome (SIRS) of non-infectious origin without acute organ dysfunction; N18.6 End stage renal disease; J96.21 Acute and chronic respiratory failure with hypoxia; D63.1 Anemia in chronic kidney disease; E87.5 Hyperkalemia; J84.10 Pulmonary fibrosis, unspecified; D80.3 Selective deficiency of immunoglobulin G [IgG] subclasses; R62.7 Adult failure to thrive; Z99.2 Dependence on renal dialysis; Z94.0 Kidney transplant status; Q61.3 Polycystic kidney, unspecified; Z95.2 Presence of prosthetic heart valve; Z79.01 Long term (current) use of anticoagulants; Z99.81 Dependence on supplemental oxygen
CPT/HCPCS: 82607-90; 82784-90; 83010-90; 85520-90; 96374; 97161-GP; 97165-GO; C1751; G8978-GP-CH; G8979-GP-CH; G8980-GP-CH; G8987-GO-CI; G8988-GO-CH; G8989-GO-CH; J0692; J0885; J1644; J2185; J2704; J3370; J7626; P9040

== ENCOUNTER 2016-05-31 17:39 | Inpatient (IN) | payer OTHER ==
--- NOTE | 2016-05-31 18:16 | EDPHY ---
H & P Time Seen by Provider: 05/31/16 18:00 HPI/ROS: CHIEF COMPLAINT: Fever HISTORY OF PRESENT ILLNESS: Patient is a 66-year-old male with multiple medical problems including end-stage renal disease. Additionally the patient has a previous history of endocarditis. Yesterday he underwent right forearm fistula placement for his end-stage renal disease. This was performed at [facility]. Today he noticed a fever. He feels more fatigued than normal. He denies any specific pain at his fistula site. He has had no numbness or tingling. No chest pain or shortness of breath. The patient has an occasional cough. He denies abdominal pain, nausea or vomiting. REVIEW OF SYSTEMS: My complete review of systems is negative except as mentioned in the HPI. Past Medical/Surgical History: Includes paroxysmal atrial fibrillation, end-stage renal disease, pseudomonal pneumonia, bronchiectasis, respiratory failure, chronic immune deficiency, anemia, deconditioning, hypertension, dysphagia, esophagitis Past surgical history: Includes kidney transplant, mitral valve repair Social history: Denies alcohol tobacco or drugs. Smoking Status: Never smoked Physical Exam: Vitals noted. 39. 118/101, 94, 22, 89% on room air GENERAL: No acute distress, alert. HEENT: Eyes normal to inspection, normal pharynx, no signs of dehydration. NECK: No thyromegaly, no lymphadenopathy, supple. RESPIRATORY: Clear to auscultation bilaterally, no rales, rhonchi or wheezing. CVS: irregularly irregular rhythm, no rubs, murmurs, or gallops. ABDOMEN: Soft, nontender, nondistended, no organomegaly. BACK: Normal to inspection, no CVA tenderness. SKIN: Normal color, no rash, warm, dry. No pallor. EXTREMITIES: No pedal edema, no calf tenderness, no Homans sign or cords, no joint swelling. Patient has a dressing on his right forearm. This dressing was removed. He has mild erythema at the distal incision site of his graft. There is no significant forearm swelling. He is neurovascularly intact distally. Brisk capillary refill. NEURO/PSYCH: Alert and oriented x3, normal mood and affect, normal motor sensory exam. Constitutional: Initial Vital Signs Temperature (C) 39 C H 05/31/16 17:40 Heart Rate 94 05/31/16 17:40 Respiratory Rate 22 H 05/31/16 17:40 Blood Pressure 118/101 H 05/31/16 17:40 O2 Sat (%) 89 L 05/31/16 17:40 O2 Delivery Mode Nasal Cannula O2 (L/minute) 2 Allergies/Adverse Reactions: Iodinated Contrast Media - Oral and [Iodinated Contrast Media - IV Dye] Allergy (Severe, Verified 05/31/16 17:39) Dyspnea IODINE CONTACT DYE Allergy (Severe, Uncoded 06/12/14 16:49) Dyspnea Home Medications: Medication Instructions Recorded Levalbuterol 1.25 mg [Xopenex 1 vial IH Q8 PRN 11/02/12 1.25MG Neb (*)] Zafirlukast [Accolate 20 MG] 20 mg PO BID 11/02/12 predniSONE 5 mg PO DAILY 05/22/15 Tiotropium Inhaler [Spiriva 18 mcg IH HS 11/10/15 Handihaler] Calcium Acetate [Phoslo (*)] 1,334 mg PO TIDMEAL #90 cap 12/08/15 Budesonide [Pulmicort 0.25MG/2Ml 0.25 mg IH BID 12/12/15 Neb (*)] Diazepam [Valium 5 MG (*)] 5 mg PO HS PRN 04/13/16 Folic Acid/Vitamin B Comp W-C 1 each PO HS 04/13/16 [Dialyvite Tablet] Hypertonic Saline 7% 1 inh IH 5XD PRN 04/13/16 Levalbuterol Inhaler [Xopenex Hfa 2 puffs IH BID 04/13/16 Inhaler (*)] Mometasone/Formoterol [Dulera 200 1 puffs IH BID 04/13/16 Mcg/5 Mcg Inhaler] Sodium Polystyrene Sulf [Kionex 10 gm PO DAILY PRN 04/13/16 SPS Powder (*)] hydrOXYzine HCL [hydrOXYzine HCL 25 mg PO BID 04/13/16 (RX)] Amiodarone HCl [Pacerone (*)] 200 mg PO BID #0 tab 04/25/16 Carvedilol [Coreg (*)] 6.25 mg PO BIDMEAL #0 tab 04/25/16 guaiFENesin [Mucinex 600 MG (*)] 600 mg PO BID #0 tab.er 04/25/16 Medical Decision Making ED Course/Re-evaluation: In the emergency department I discussed possible etiologies with the patient's care provider. I answered all her questions. IV was placed. Laboratory studies including blood cultures were ordered. Patient states he infrequently makes urine. Chest x-ray was ordered. Patient was noted to have abnormal laboratory studies. His lactate was elevated at 3.1. His CBC was elevated at 12. Creatinine is expectedly elevated. Electrolytes are otherwise unremarkable. Chest x-ray: The patient was noted to have ongoing bilateral lower lobe infiltrates. This was compared with previous studies. Please refer the dictated report. I discussed the findings with the patient answered all his questions. He will be given vancomycin and Rocephin. This will cover both his forearm surgery and potential pneumonia. The patient was given 1 L of normal saline. I will do this gingerly because the patient is on dialysis. I do not feel we should give him 30 milliliters/kilogram initially. After the 1 L of normal saline he will have a repeat lactate. I discussed the case with Dr. Corrales. He will admit the patient. Repeat lactic acid is 0.9 Differential Diagnosis: My differential includes but is not limited to wound infection, bacteremia, sepsis, pneumonia, urinary tract infection, cellulitis, abscess, port infection Critical Care Time: Patient required critical care time of 25 minutes. This was exclusive of any unbundled procedure. This was due the patient's elevated fever, abnormal laboratory studies and need for frequent rechecks. - Data Points Laboratory Results: Laboratory Results 05/31/16 18:58 05/31/16 18:05 05/31/16 05/31/16 05/31/16 18:58 18:58 18:05 WBC 12.80 10^3/uL H 10^3/uL (3.80-9.50) RBC 4.03 10^6/uL L 10^6/uL (4.40-6.38) Hgb 13.1 g/dL L g/dL (13.7-17.5) Hct 41.6 % % (40.0-51.0) MCV 103.2 fL H fL (81.5-99.8) MCH 32.5 pg pg (27.9-34.1) MCHC 31.5 g/dL L g/dL (32.4-36.7) RDW 16.3 % H % (11.5-15.2) Plt Count 111 10^3/uL L 10^3/uL (150-400) MPV 8.4 fL L fL (8.7-11.7) Neut % (Auto) 72.7 % % (39.3-74.2) Lymph % (Auto) 19.3 % % (15.0-45.0) [place] % (Auto) 5.9 % % (4.5-13.0) Eos % (Auto) 1.1 % % (0.6-7.6) Baso % (Auto) 0.5 % % (0.3-1.7) Nucleat RBC Rel Count 0.0 % % (0.0-0.2) Absolute Neuts (auto) 9.31 10^3/uL H 10^3/uL (1.70-6.50) Absolute Lymphs (auto) 2.47 10^3/uL 10^3/uL (1.00-3.00) Absolute Monos (auto) 0.75 10^3/uL 10^3/uL (0.30-0.80) Absolute Eos (auto) 0.14 10^3/uL 10^3/uL (0.03-0.40) Absolute Basos (auto) 0.07 10^3/uL 10^3/uL (0.02-0.10) Absolute Nucleated RBC 0.00 10^3/uL 10^3/uL (0-0.01) Immature Gran % 0.5 % % (0.0-1.1) Immature Gran # 0.06 10^3/uL 10^3/uL (0.00-0.10) PT 13.8 SEC SEC (12.0-15.0) INR 1.07 (0.83-1.16) APTT 33.2 SEC SEC (23.0-38.0) VBG Lactic Acid Sodium 136 mEq/L mEq/L (134-144) Potassium 4.9 mEq/L mEq/L (3.5-5.2) Chloride 93 mEq/L L mEq/L (97-110) Carbon Dioxide 29 mEq/l mEq/l (22-31) Anion Gap 14 mEq/L mEq/L (8-16) BUN 16 mg/dL mg/dL (7-23) Creatinine 2.7 mg/dL H mg/dL (0.7-1.3) Estimated GFR 24 Glucose 82 mg/dL mg/dL (70-100) Calcium 9.8 mg/dL mg/dL (8.5-10.4) Total Bilirubin 1.3 mg/dL mg/dL (0.1-1.4) 05/31/16 05/31/16 05/31/16 18:05 18:05 18:05 WBC REJ RBC TNP Hgb TNP Hct TNP MCV TNP MCH TNP MCHC TNP RDW TNP Plt Count TNP MPV TNP Neut % (Auto) TNP Lymph % (Auto) TNP [place]yman % (Auto) TNP Eos % (Auto) TNP Baso % (Auto) TNP Nucleat RBC Rel Count TNP Absolute Neuts (auto) TNP Absolute Lymphs (auto) TNP Absolute Monos (auto) TNP Absolute Eos (auto) TNP Absolute Basos (auto) TNP Absolute Nucleated RBC TNP Immature Gran % TNP Immature Gran # TNP PT REJ INR REJ APTT REJ VBG Lactic Acid 3.1 mmol/L H mmol/L (0.7-2.1) Sodium Potassium Chloride Carbon Dioxide Anion Gap BUN Creatinine Estimated GFR Glucose Calcium Total Bilirubin Medications Given: Discontinued Medications Sodium Chloride (Ns) 1,000 mls @ 0 mls/hr IV ONCE ONE PRN Reason: Wide Open Stop: 05/31/16 19:51 Last Admin: 05/31/16 19:58 Dose: 1,000 mls Ceftriaxone Sodium/Dextrose (Rocephin 1 Gm (Premix)) 50 mls @ 100 mls/hr IV EDNOW ONE PRN Reason: Protocol Stop: 05/31/16 20:20 Last Admin: 05/31/16 20:06 Dose: 50 mls Vancomycin/Sodium Chloride (Vancomycin 1 Gm (Premix)) 250 mls @ 250 mls/hr IV EDNOW ONE PRN Reason: Protocol Stop: 05/31/16 20:49 Last Admin: 05/31/16 20:30 Dose: 250 mls Departure - Departure Disposition: [facility] Inpatient Acute Clinical Impression: Hypoxemia, Fever, Severe sepsis Leukocytosis Qualifiers: Leukocytosis type: other Qualified Code(s): D72.828 - Other elevated white blood cell count Pneumonia Qualifiers: Laterality: bilateral Lung location: lower lobe of lung Condition: Good
[2016-05-31 18:31] LABS: ANION GAP 14 mEq/L (8-16); BILIRUBIN,TOTAL 1.3 mg/dL (0.1-1.4); CALCIUM 9.8 mg/dL (8.5-10.4); CARBON DIOXIDE 29 mEq/l (22-31); CHLORIDE 93 mEq/L (97-110); CREATININE 2.7 mg/dL (0.7-1.3); GLOMERULAR FILTRATION RATE 24; GLUCOSE 82 mg/dL (70-100); POTASSIUM 4.9 mEq/L (3.5-5.2); SODIUM 136 mEq/L (134-144)
[2016-05-31 19:06] LABS: % IMMATURE GRANULYOCYTES 0.5 % (0.0-1.1); ABSOLUTE IMMATURE GRANULOCYTES 0.06 10^3/uL (0.00-0.10); ADD DIFF? NO; ADD MORPH? NO; ADD SCAN? NO; ATYPICAL LYMPHOCYTE FLAG 0 (0-99); FRAGMENT RBC FLAG 0 (0-99); HEMATOCRIT 41.6 % (40.0-51.0); HEMOGLOBIN 13.1 g/dL (13.7-17.5); LEFT SHIFT FLG 10 (0-99); LIPEMIA HEMOLYSIS FLAG 80 (0-99); MEAN CELL HEMOGLOBIN 32.5 pg (27.9-34.1); MEAN CELL HEMOGLOBIN CONCENTR. 31.5 g/dL (32.4-36.7); MEAN CELL VOLUME 103.2 fL (81.5-99.8); MEAN PLATELET VOLUME 8.4 fL (8.7-11.7); PLATELET CLUMPS FLAG 0 (0-99); PLATELET COUNT 111 10^3/uL (150-400); RED BLOOD CELL COUNT 4.03 10^6/uL (4.40-6.38); RED CELL DISTRIBUTION WIDTH 16.3 % (11.5-15.2)
[2016-05-31 19:14] LABS: INR 1.07 (0.83-1.16); PROTIME(PATIENT) 13.8 SEC (12.0-15.0)
[2016-05-31 19:15] LABS: APTT 33.2 SEC (23.0-38.0)
[2016-05-31 19:17] LABS: LACGHOST ORDER
[2016-05-31] MEDS ORDERED: VANCOMYCIN HCL/NORMAL SALINE 250 ML IV ONE (19:50)
[2016-05-31] MEDS ORDERED: NS 1,000 ML IV ONE (19:50)
[2016-05-31] MEDS ORDERED: ACETAMINOPHEN 325 MG TAB PO PRN (22:27)
[2016-05-31] MEDS ORDERED: ONDANSETRON DISINTEGRATING 4 MG TAB PO PRN (22:54)
[2016-05-31] MEDS ORDERED: ONDANSETRON 4 MG/2 ML VIAL IVP PRN (22:54)
[2016-05-31] MEDS ORDERED: LEVALBUTEROL 1.25 MG/3 ML DEYVIAL IH PRN (22:59)
[2016-05-31] MEDS ORDERED: DIAZEPAM 5 MG TAB PO PRN (22:59)
[2016-05-31] MEDS ORDERED: SODIUM POLYSTYRENE SULF 454 GM POWDER PO PRN (22:59)
[2016-05-31] MEDS: PIPERACILLIN/TAZO 2.25 GM/DEX 50 ML IV SCH (23:48)
[2016-06-01] MEDS: TIOTROPIUM INHALER 18 MCG/DOSE 5 DOSE/MDI IH SCH ×2 (00:13→19:51)
[2016-06-01] MEDS: hydrOXYzine HCL 25 MG TAB PO PRN ×2 (01:02→07:18)
--- NOTE | 2016-06-01 02:24 | PDGENHP ---
History and Physical - Chief Complaint fever - History of Present Illness Patient is a 66-year-old male with history of end-stage renal disease, chronic hypoxic respiratory failure moderate to severe pulmonary hypertension, hypertension, paroxysmal atrial fibrillation and history of recurrent pneumonias who presents to the ED with complaint of fever. Patient states he was undergoing his regular hemodialysis today when he was noted to be febrile. Patient does report generalized fatigue, worsening productive cough over the past 2 days. In addition, on the day prior to presentation he underwent right upper extremity fistula placement at [facility]. He denies any abdominal pain, nausea, vomiting, diarrhea and also denies any chest pain, palpitations, headache or dizziness. On arrival to the ED patient was noted to be febrile, but otherwise hemodynamically stable. Labs revealed mild leukocytosis, elevated lactic acid and elevated creatinine (expected). Chest x-ray revealed bilateral infiltrates , unclear if resolution of previous pneumonia or new infiltrate. He was cultured initiated on broad-spectrum antibiotics and admitted to the hospital service for further management. History Information - Allergies/Home Medication List Allergies/Adverse Reactions: Iodinated Contrast Media - Oral and [Iodinated Contrast Media - IV Dye] Allergy (Severe, Verified 05/31/16 17:39) Dyspnea IODINE CONTACT DYE Allergy (Severe, Uncoded 06/12/14 16:49) Dyspnea Home Medications: Levalbuterol 1.25 mg [Xopenex 1.25MG Neb (*)] 1 vial IH Q8 PRN 11/02/12 [Last Taken 02/14/16 08:00] Zafirlukast [Accolate 20 MG] 20 mg PO BID 11/02/12 [Last Taken 05/30/16 21:00] predniSONE 5 mg PO DAILY 05/22/15 [Last Taken 05/30/16] Tiotropium Inhaler [Spiriva Handihaler] 18 mcg IH HS 11/10/15 [Last Taken ] Budesonide [Pulmicort 0.25MG/2Ml Neb (*)] 0.25 mg IH BID 12/12/15 [Last Taken ] Diazepam [Valium 5 MG (*)] 5 mg PO HS PRN 04/13/16 [Last Taken 05/30/16] Folic Acid/Vitamin B Comp W-C [Dialyvite Tablet] 1 each PO HS 04/13/16 [Last Taken 05/30/16] Hypertonic Saline 7% 1 inh IH 5XD PRN 04/13/16 [Last Taken 04/09/16] Levalbuterol Inhaler [Xopenex Hfa Inhaler (*)] 2 puffs IH BID 04/13/16 [Last Taken 04/13/16] Mometasone/Formoterol [Dulera 200 Mcg/5 Mcg Inhaler] 1 puffs IH BID 04/13/16 [ Last Taken 04/13/16] Sodium Polystyrene Sulf [Kionex SPS Powder (*)] 10 gm PO DAILY PRN 04/13/16 [ Last Taken Unknown] hydrOXYzine HCL [hydrOXYzine HCL (RX)] 25 mg PO BID 04/13/16 [Last Taken 21:00] I have personally reviewed and updated: family history, medical history, social history, surgical history - Past Medical History atrial fibrillation, ESRD, pneumonia Additional medical history: Bronchiectasis with recurrent pseudomonal pneumonia , 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, polycystic kidney disease with end-stage renal disease and hemodialysis, immunodeficiency chronically on IVIG, chronic hypoxic respiratory failure with O2 requirement 2 L at baseline, asthma with thyroplasty, pulmonary hypertension, West Nile virus with encephalitis, paroxysmal atrial fibrillation status post DC cardioversion - Surgical History Additional surgical history: MVr and renal transplant - Family History Positive for: non-pertinent Additional family history: Father with polycystic kidney disease and early demise - Social History Smoking Status: Never smoked Alcohol Use: None Drug Use: None Additional social history: Lives independently, 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 Review of Systems ROS: 10pt was reviewed & negative except for what was stated in HPI & below Physical Exam Temp Pulse Resp BP Pulse Ox 38.2 C 81 16 101/62 90 L 05/31/16 23:03 06/01/16 00:15 06/01/16 00:15 05/31/16 21:53 06/01/16 00:15 O2 (L/minute) 3 Constitutional: no apparent distress, not in pain, chronically ill appearing Eyes: PERRL, anicteric sclera, EOMI Ears, Nose, Mouth, Throat: hearing normal, ears appear normal, no oral mucosal ulcers, dry mucous membranes Cardiovascular: regular rate and rhythym, no murmur, rub, or gallop, pulses symmetric bilaterally, No JVD, No edema Peripheral Pulses: 2+: dorsalis-pedis (R), dorsalis-pedis (L) Respiratory: bronchial breath sounds (At bilateral bases) Gastrointestinal: normoactive bowel sounds, soft, non-tender abdomen, no palpable masses, No guarding, No rebound, No distension Genitourinary: no bladder fullness, no bladder tenderness Skin: warm, normal color, no rashes or abrasions, no fluctuance, other (Right upper extremity fistula, positive thrill, dressing clean dry and intact), No mottled Musculoskeletal: full muscle strength, no muscle tenderness Neurologic: AAOx3, sensation intact bilaterally, CN II-XII Intact, No weakness, No numbness Psychiatric: interacting appropriately, not anxious, not encephalopathic, thought process linear Lab Data & Imaging Review 06/01/16 04:15 06/01/16 04:15 WBC 12.80 10^3/uL (3.80-9.50) H 05/31/16 18:58 RBC 4.03 10^6/uL (4.40-6.38) L 05/31/16 18:58 Hgb 13.1 g/dL (13.7-17.5) L 05/31/16 18:58 Hct 41.6 % (40.0-51.0) 05/31/16 18:58 MCV 103.2 fL (81.5-99.8) H 05/31/16 18:58 MCH 32.5 pg (27.9-34.1) 05/31/16 18:58 MCHC 31.5 g/dL (32.4-36.7) L 05/31/16 18:58 RDW 16.3 % (11.5-15.2) H 05/31/16 18:58 Plt Count 111 10^3/uL (150-400) L 05/31/16 18:58 MPV 8.4 fL (8.7-11.7) L 05/31/16 18:58 Neut % (Auto) 72.7 % (39.3-74.2) 05/31/16 18:58 Lymph % (Auto) 19.3 % (15.0-45.0) 05/31/16 18:58 [place] % (Auto) 5.9 % (4.5-13.0) 05/31/16 18:58 Eos % (Auto) 1.1 % (0.6-7.6) 05/31/16 18:58 Baso % (Auto) 0.5 % (0.3-1.7) 05/31/16 18:58 Nucleat RBC Rel Count 0.0 % (0.0-0.2) 05/31/16 18:58 Absolute Neuts (auto) 9.31 10^3/uL (1.70-6.50) H 05/31/16 18:58 Absolute Lymphs (auto) 2.47 10^3/uL (1.00-3.00) 05/31/16 18:58 Absolute Monos (auto) 0.75 10^3/uL (0.30-0.80) 05/31/16 18:58 Absolute Eos (auto) 0.14 10^3/uL (0.03-0.40) 05/31/16 18:58 Absolute Basos (auto) 0.07 10^3/uL (0.02-0.10) 05/31/16 18:58 Absolute Nucleated RBC 0.00 10^3/uL (0-0.01) 05/31/16 18:58 Immature Gran % 0.5 % (0.0-1.1) 05/31/16 18:58 Immature Gran # 0.06 10^3/uL (0.00-0.10) 05/31/16 18:58 PT 13.8 SEC (12.0-15.0) 05/31/16 18:58 INR 1.07 (0.83-1.16) 05/31/16 18:58 APTT 33.2 SEC (23.0-38.0) 05/31/16 18:58 VBG Lactic Acid 0.9 mmol/L (0.7-2.1) 05/31/16 21:35 Sodium 136 mEq/L (134-144) 05/31/16 18:05 Potassium 4.9 mEq/L (3.5-5.2) 05/31/16 18:05 Chloride 93 mEq/L (97-110) L 05/31/16 18:05 Carbon Dioxide 29 mEq/l (22-31) 05/31/16 18:05 Anion Gap 14 mEq/L (8-16) 05/31/16 18:05 BUN 16 mg/dL (7-23) 05/31/16 18:05 Creatinine 2.7 mg/dL (0.7-1.3) H 05/31/16 18:05 Estimated GFR 24 05/31/16 18:05 Glucose 82 mg/dL (70-100) 05/31/16 18:05 Calcium 9.8 mg/dL (8.5-10.4) 05/31/16 18:05 Total Bilirubin 1.3 mg/dL (0.1-1.4) 05/31/16 18:05 Influenza A & B (PCR) NEGATIVE FOR FLU (NEGATIVE) 05/31/16 23:00 Visualized and Interpreted Chest x-ray results: Yes Chest X-Ray results: infiltrate (Bilaterally) Assessment & Plan Assessment: Patient is a 66-year-old male with a complicated past medical history including end-stage renal disease, history of renal transplant chronically immunosuppressed, chronic respiratory failure with recurrent pneumonias who presents to the ED with fever and cough. ED evaluation reveals severe sepsis, possible sources include bacteremia versus recurrent pneumonia. Plan: # severe sepsis Patient with fever, leukocytosis and elevated lactate consistent with severe sepsis. Possible sources of infection include recurrent pneumonia given patient 's complaint of worsening cough and chest x-ray findings, however HD or fistula related bacteremia is also a possibility. Rapid flu swab is negative. Patient was cultured, and we will continue broad-spectrum antibiotics with Vanc and Zosyn until cultures results given patient's immunocompromised status. Patient did receive IV fluid resuscitation in the ED and lactic acid has normalized. Will hold additional IV fluids given ESRD. Will also obtain ID consult. # ESRD on HD Patient reports near complete HD session today prior to arrival to the ED. Electrolytes are wnl. Will continue home renal regimen, renal diet and monitoring electrolytes. Nephrology consult for next HD. # asthma, chronic respiratory failure, severe pulmonary hypertension Respiratory status is stable and appears to be at baseline. Will cont O2 NC prn , continue home asthma regimen with nebs prn. # paroxysmal Afib Patient appears to be in sinus rhythm. INR is not therapeutic and warfarin is not listed on home med rec (patient states he is no longer on anticoagulation). Will need to assess why this was discontinued and consider bridging therapy. Will continue rate controlling meds. Will also confirm rhythm with EKG. # dispo: admit to inpatient service for likely > 2MN stay #gen: renal diet DVT ppx: HSQ Full code
[2016-06-01 05:06] LABS: % IMMATURE GRANULYOCYTES 0.6 % (0.0-1.1); ADD DIFF? NO; ADD MORPH? NO; ADD SCAN? NO; ATYPICAL LYMPHOCYTE FLAG 0 (0-99); FRAGMENT RBC FLAG 0 (0-99); HEMATOCRIT 37.4 % (40.0-51.0); HEMOGLOBIN 11.5 g/dL (13.7-17.5); LEFT SHIFT FLG 40 (0-99); LIPEMIA HEMOLYSIS FLAG 80 (0-99); MEAN CELL HEMOGLOBIN 33.2 pg (27.9-34.1); MEAN CELL HEMOGLOBIN CONCENTR. 30.7 g/dL (32.4-36.7); MEAN CELL VOLUME 108.1 fL (81.5-99.8); MEAN PLATELET VOLUME 9.1 fL (8.7-11.7); PLATELET CLUMPS FLAG 10 (0-99); PLATELET COUNT 99 10^3/uL (150-400); RED BLOOD CELL COUNT 3.46 10^6/uL (4.40-6.38); RED CELL DISTRIBUTION WIDTH 16.2 % (11.5-15.2)
[2016-06-01 05:21] LABS: INR 1.33 (0.83-1.16); PROTIME(PATIENT) 16.5 SEC (12.0-15.0)
[2016-06-01 05:22] LABS: APTT 41.4 SEC (23.0-38.0)
[2016-06-01 05:27] LABS: ANION GAP 13 mEq/L (8-16); CALCIUM 8.2 mg/dL (8.5-10.4); CARBON DIOXIDE 24 mEq/l (22-31); CHLORIDE 100 mEq/L (97-110); CREATININE 3.8 mg/dL (0.7-1.3); GLOMERULAR FILTRATION RATE 16; GLUCOSE 61 mg/dL (70-100); MAGNESIUM 1.8 mg/dL (1.6-2.3); POTASSIUM 4.4 mEq/L (3.5-5.2); SODIUM 137 mEq/L (134-144)
[2016-06-01] MEDS: HEPARIN 5,000 UNIT/0.5 ML SYR SC SCH ×3 (06:19→21:02)
[2016-06-01] MEDS: PIPERACILLIN/TAZO 2.25 GM/DEX 50 ML IV SCH ×3 (07:16→23:43)
[2016-06-01] MEDS ORDERED: CARVEDILOL 6.25 MG TAB PO SCH (08:00)
[2016-06-01] MEDS: LEVALBUTEROL INHALER 200 PUFFS/15 GM MDI IH SCH ×2 (08:59→19:50)
[2016-06-01 09:00] LABS: BILIRUBIN,TOTAL 0.8 mg/dL (0.1-1.4); BILIRUBIN-CONJUGATED 0.8 mg/dL (0.0-0.5)
[2016-06-01] MEDS ORDERED: hydrOXYzine HCL 25 MG TAB PO PRN (09:00)
[2016-06-01] MEDS: BUDESONIDE 0.25MG/2ML DEYVIAL (5/POUCH) IH SCH ×2 (09:00→19:51)
--- NOTE | 2016-06-01 09:13 | PDGENHP ---
History and Physical - Chief Complaint ESRD - History of Present Illness Mr. 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 Benson, who has had multiple admissions in the past several months with infection, mainly pneumonia, who presented to ER yesterday from dialysis unit. Pt states that he has had some slight cough in the past few days , although not as bad as before, feeling tired, having some chills. He went to HD yesterday and was noted to have a fever, so he presented after completing his dialysis. Pt notes that he had a fistula placed last . On presentation, lactate up to 3.1, improved to 0.9 with some fluids. History Information - Allergies/Home Medication List Allergies/Adverse Reactions: Iodinated Contrast Media - Oral and [Iodinated Contrast Media - IV Dye] Allergy (Severe, Verified 05/31/16 17:39) Dyspnea IODINE CONTACT DYE Allergy (Severe, Uncoded 06/12/14 16:49) Dyspnea Home Medications: Levalbuterol 1.25 mg [Xopenex 1.25MG Neb (*)] 1 vial IH Q8 PRN 11/02/12 [Last Taken 02/14/16 08:00] Zafirlukast [Accolate 20 MG] 20 mg PO BID 11/02/12 [Last Taken 05/30/16 21:00] predniSONE 5 mg PO DAILY 05/22/15 [Last Taken 05/30/16] Tiotropium Inhaler [Spiriva Handihaler] 18 mcg IH HS 11/10/15 [Last Taken ] Budesonide [Pulmicort 0.25MG/2Ml Neb (*)] 0.25 mg IH BID 12/12/15 [Last Taken ] Diazepam [Valium 5 MG (*)] 5 mg PO HS PRN 04/13/16 [Last Taken 05/30/16] Folic Acid/Vitamin B Comp W-C [Dialyvite Tablet] 1 each PO HS 04/13/16 [Last Taken 05/30/16] Hypertonic Saline 7% 1 inh IH 5XD PRN 04/13/16 [Last Taken 04/09/16] Levalbuterol Inhaler [Xopenex Hfa Inhaler (*)] 2 puffs IH BID 04/13/16 [Last Taken 04/13/16] Mometasone/Formoterol [Dulera 200 Mcg/5 Mcg Inhaler] 1 puffs IH BID 04/13/16 [ Last Taken 04/13/16] Sodium Polystyrene Sulf [Kionex SPS Powder (*)] 10 gm PO DAILY PRN 04/13/16 [ Last Taken Unknown] hydrOXYzine HCL [hydrOXYzine HCL (RX)] 25 mg PO BID 04/13/16 [Last Taken 21:00] I have personally reviewed and updated: medical history - Past Medical History atrial fibrillation, ESRD, pneumonia Additional medical history: Bronchiectasis with recurrent pseudomonal pneumonia , 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, polycystic kidney disease with end-stage renal disease and hemodialysis, immunodeficiency chronically on IVIG, chronic hypoxic respiratory failure with O2 requirement 2 L at baseline, asthma with thyroplasty, pulmonary hypertension, West Nile virus with encephalitis, paroxysmal atrial fibrillation status post DC cardioversion - Surgical History Additional surgical history: MVr and renal transplant - Family History Positive for: non-pertinent Additional family history: Father with polycystic kidney disease and early demise - Social History Smoking Status: Never smoked Alcohol Use: None Drug Use: None Additional social history: Lives independently, 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 Review of Systems ROS: 10pt was reviewed & negative except for what was stated in HPI & below Physical Exam Temp Pulse Resp BP Pulse Ox 37.4 C 76 16 103/48 L 99 06/01/16 07:56 06/01/16 07:56 06/01/16 07:56 06/01/16 07:56 06/01/16 07:56 O2 (L/minute) 3 Constitutional: no apparent distress, chronically ill appearing Eyes: PERRL, anicteric sclera, EOMI Ears, Nose, Mouth, Throat: moist mucous membranes, hearing normal Cardiovascular: regular rate and rhythym, pulses symmetric bilaterally, No edema Peripheral Pulses: 2+: dorsalis-pedis (R), dorsalis-pedis (L) Respiratory: no respiratory distress, clear to auscultation, other (crackles L base, on 3L O2 via NC) Gastrointestinal: normoactive bowel sounds, soft, non-tender abdomen Skin: warm, No mottled, No rash Musculoskeletal: no muscle tenderness, no joint effusions Neurologic: AAOx3, CN II-XII Intact, No asterixes Psychiatric: interacting appropriately, not anxious, not encephalopathic, thought process linear Lab Data & Imaging Review 06/01/16 04:15 06/01/16 04:15 WBC 16.86 10^3/uL (3.80-9.50) H 06/01/16 04:15 RBC 3.46 10^6/uL (4.40-6.38) L 06/01/16 04:15 Hgb 11.5 g/dL (13.7-17.5) L 06/01/16 04:15 Hct 37.4 % (40.0-51.0) L 06/01/16 04:15 MCV 108.1 fL (81.5-99.8) H 06/01/16 04:15 MCH 33.2 pg (27.9-34.1) 06/01/16 04:15 MCHC 30.7 g/dL (32.4-36.7) L 06/01/16 04:15 RDW 16.2 % (11.5-15.2) H 06/01/16 04:15 Plt Count 99 10^3/uL (150-400) L 06/01/16 04:15 MPV 9.1 fL (8.7-11.7) 06/01/16 04:15 Neut % (Auto) 70.3 % (39.3-74.2) 06/01/16 04:15 Lymph % (Auto) 20.6 % (15.0-45.0) 06/01/16 04:15 [place] % (Auto) 6.8 % (4.5-13.0) 06/01/16 04:15 Eos % (Auto) 1.2 % (0.6-7.6) 06/01/16 04:15 Baso % (Auto) 0.5 % (0.3-1.7) 06/01/16 04:15 Nucleat RBC Rel Count 0.0 % (0.0-0.2) 06/01/16 04:15 Absolute Neuts (auto) 11.83 10^3/uL (1.70-6.50) H 06/01/16 04:15 Absolute Lymphs (auto) 3.48 10^3/uL (1.00-3.00) H 06/01/16 04:15 Absolute Monos (auto) 1.15 10^3/uL (0.30-0.80) H 06/01/16 04:15 Absolute Eos (auto) 0.21 10^3/uL (0.03-0.40) 06/01/16 04:15 Absolute Basos (auto) 0.09 10^3/uL (0.02-0.10) 06/01/16 04:15 Absolute Nucleated RBC 0.00 10^3/uL (0-0.01) 06/01/16 04:15 Immature Gran % 0.6 % (0.0-1.1) 06/01/16 04:15 Immature Gran # 0.10 10^3/uL (0.00-0.10) 06/01/16 04:15 PT 16.5 SEC (12.0-15.0) H 06/01/16 04:15 INR 1.33 (0.83-1.16) H 06/01/16 04:15 APTT 41.4 SEC (23.0-38.0) H 06/01/16 04:15 VBG Lactic Acid 0.9 mmol/L (0.7-2.1) 05/31/16 21:35 Sodium 137 mEq/L (134-144) 06/01/16 04:15 Potassium 4.4 mEq/L (3.5-5.2) 06/01/16 04:15 Chloride 100 mEq/L (97-110) 06/01/16 04:15 Carbon Dioxide 24 mEq/l (22-31) 06/01/16 04:15 Anion Gap 13 mEq/L (8-16) 06/01/16 04:15 BUN 27 mg/dL (7-23) H 06/01/16 04:15 Creatinine 3.8 mg/dL (0.7-1.3) H 06/01/16 04:15 Estimated GFR 16 06/01/16 04:15 Glucose 61 mg/dL (70-100) L 06/01/16 04:15 Calcium 8.2 mg/dL (8.5-10.4) L D 06/01/16 04:15 Phosphorus 4.5 mg/dL (2.5-4.5) 06/01/16 04:15 Magnesium 1.8 mg/dL (1.6-2.3) 06/01/16 04:15 Total Bilirubin 0.8 mg/dL (0.1-1.4) 06/01/16 04:15 Conjugated Bilirubin 0.8 mg/dL (0.0-0.5) H 06/01/16 04:15 Unconjugated Bilirubin 0.0 mg/dL (0.0-1.1) 06/01/16 04:15 AST 27 IU/L (17-59) 06/01/16 04:15 ALT 27 IU/L (21-72) 06/01/16 04:15 Alkaline Phosphatase 56 IU/L (38-126) 06/01/16 04:15 Total Protein 5.0 g/dL (6.3-8.2) L 06/01/16 04:15 Albumin 3.0 g/dL (3.5-5.0) L 06/01/16 04:15 Influenza A & B (PCR) NEGATIVE FOR FLU (NEGATIVE) 05/31/16 23:00 Assessment & Plan Assessment: Assessment/Plan: ESRD: on HD MWF, last dialyzed yesterday. - Will plan next HD on Friday per routine. h/o renal transplant: pt was weaned down on his IS regimen due to multiple pneumonias, now is on prednisone alone, will continue. Anemia: Hgb 11.5, at goal, no need for inpatient epo. Will continue to monitor. NAS: Phos 4.5, continue calcium acetate with meals. Thank you for the interesting consult. Nephrology will continue to follow, please call if you have any additional questions or concerns.
[2016-06-01] MEDS: Mometasone/Formoterol [Dulera 200 Mcg/5 Mcg Inhaler] IH SCH ×2 (09:17→23:44)
[2016-06-01] MEDS: CALCIUM ACETATE 667 MG CAP PO SCH ×3 (09:35→18:21)
[2016-06-01] MEDS: MONTELUKAST SODIUM 10 MG TAB PO SCH (09:36)
[2016-06-01] MEDS: predniSONE 5 MG TAB PO SCH (09:36)
[2016-06-01] MEDS: guaiFENesin 600 MG TAB.ER PO SCH ×2 (09:36→20:51)
[2016-06-01] MEDS: AMIODARONE HCL 200 MG TAB PO SCH ×2 (09:36→20:52)
--- NOTE | 2016-06-01 10:45 | PCMIDPN ---
Assessment/Plan: #Fever/rigors/leukocytosis - unclear source. Data not overly convincing for recurrent PNA with stable hypoxia, CXR improved compared to last, minimal cough. Main c/o malaise/episode of rigors. DDx bacteremia (HD cath, recent IV placement for fistula procedure 05/30) and recurrent PNA/aspiration PNA. No GI, urinary sx. Site of fistula procedure R forearm healthy appearing --rec'd 1 dose vancomycin last night --critical to get sputum sample for cultures --follow blood cultures --check random vancomycin in AM # Immunoglobulin deficiency: check IgG level in AM #Bronchiectasis with pulmonary colonization with ESBL E coli (most recently), PsA, and VRE # ESRD: renal dosing of zosyn, intermittent vancomycin dosing meds zosyn 2.25gm IV q8 vancomycin 1gm X 1 Subjective: 66 yo male well known to me with Recurrent PNA due to ESBL E coli/PsA with underlying bronchiectasis, ESRD, s/p failed renal transplant, IgG deficiency transferred from HD for rigors. Notably, discontinued prograf earlier this year. Feels better this AM. No GI, urinary sx. No rash. Recent surgery 3 days ago for fistula R arm, no increasing pain, no drainage. Denies pain at hemodialysis cath Objective: Vital Signs Temp Pulse Resp BP Pulse Ox 37.4 C 72 20 103/48 L 94 06/01/16 07:56 06/01/16 09:05 06/01/16 09:05 06/01/16 07:56 06/01/16 09:05 Laboratory Results 06/01/16 04:15 06/01/16 04:15 05/31/16 06/01/16 06/02/16 05:59 05:59 05:59 Intake Total 970 Balance 970 - Physical Exam General Appearance: alert, thin, non-toxic EENT: pale conjunctiva, No scleral icterus, No thrush Respiratory: crackles (occasional scattered), No accessory muscle use, No wheezing Neck: supple Cardiac/Chest: regular rate, rhythm Extremities: other (R arm incision along forearm without erythema, swellng, tenderness), No pedal edema Abdomen: non-tender, soft Skin: pallor, rash (scattered excoriated papulaes) Neuro/Psych: alert, normal mood/affect, oriented x 3 - Line/s Mediport Lines: No drainage, No erythema - Time Spent With Patient Time Spent with Patient: greater than 35 minutes Time Spent with Patient: Greater than 35 minutes spent on this patients care, greater than 50% of time spent counseling, educating, and coordinating care regarding the above mentioned plan. ICD10 Worksheet Patient Problems: Problems Problem Status Onset Fever Acute Hypoxemia Acute Leukocytosis Acute Pneumonia Acute Severe sepsis Acute Anemia Acute CHF (congestive heart failure) Acute Chronic Disease Mgmt/Transitional Care Acute Chronic pneumonia Acute Chronic renal failure Acute ESBL (extended spectrum beta-lactamase) producing bacteria infection Acute Extended spectrum beta lactamase (ESBL) resistance Acute 02/15/16 History of pneumonia Acute Hypotension Acute Hypoxia Acute Lung infiltrate Acute Mitral valve replaced Acute Palliative care encounter Acute Pneumonia Acute Pneumonia due to Pseudomonas Acute Renal failure Acute Renal transplant recipient Acute Sepsis Acute Severe sepsis Acute Shortness of breath Acute VRE (vancomycin-resistant Enterococci) Acute 01/11/16 Weakness Acute
[2016-06-01] MEDS: HYDROCODONE/APAP 5/325 TAB PO PRN (11:37)
--- NOTE | 2016-06-01 14:02 | HOSPPROG ---
Hospitalist Progress Note Assessment/Plan: this is a 66-year-old male new to my care with a complicated past medical history including end-stage renal disease, history of renal transplant chronically immunosuppressed, chronic respiratory failure with recurrent pneumonias who presents to the ED with fever and cough. ED evaluation reveals severe sepsis, possible sources include bacteremia versus recurrent pneumonia. # severe sepsis fever blood stream infection over pneumonia - I discussed case with Dr. Janelle Daniel from Infectious Disease. - Continue vancomycin and Zosyn day 2. pending culture results - monitor for signs of septic shock # ESRD on HD - I consulted Dr. Jenkins from Nephrology to continue with hemodialysis # asthma, chronic respiratory failure, severe pulmonary hypertension -Respiratory status is stable and appears to be at baseline. Will cont O2 NC prn, continue home asthma regimen with nebs prn. # paroxysmal Afib Patient appears to be in sinus rhythm. INR is not therapeutic and warfarin is not listed on home med rec (patient states he is no longer on anticoagulation). Will need to assess why this was discontinued and consider bridging therapy. Will continue rate controlling meds. Will also confirm rhythm with EKG. # dispo: admit to inpatient service for likely > 2MN stay #gen: regular diet DVT ppx: HSQ Full code patient is high risk Subjective: feeling better today after receiving antibiotics. Denies any worsening shortness of breath or cough. Denies any chest pain. Objective: Vital Signs Temp Pulse Resp BP Pulse Ox 36.6 C 81 20 108/53 L 96 06/01/16 11:23 06/01/16 11:23 06/01/16 11:23 06/01/16 11:23 06/01/16 11:23 Laboratory Results 06/01/16 04:15 06/01/16 04:15 05/31/16 06/01/16 06/02/16 05:59 05:59 05:59 Intake Total 970 Balance 970 PT 16.5 SEC (12.0-15.0) H 06/01/16 04:15 INR 1.33 (0.83-1.16) H 06/01/16 04:15 - Physical Exam Constitutional: chronically ill appearing Cardiovascular: regular rate and rhythym, no murmur, rub, or gallop Respiratory: no respiratory distress, no rales or rhonchi, clear to auscultation Gastrointestinal: normoactive bowel sounds, soft, non-tender abdomen, No guarding, No rebound Genitourinary: no bladder fullness, no bladder tenderness, no renal bruits Skin: no rashes or abrasions, no fluctuance, no induration Neurologic: AAOx3, sensation intact bilaterally, CN II-XII Intact, No facial droop ICD10 Worksheet Patient Problems: Problems Problem Status Onset Pneumonia Acute Mitral valve replaced Acute Extended spectrum beta lactamase (ESBL) resistance Acute 02/15/16 Renal transplant recipient Acute Chronic renal failure Acute CHF (congestive heart failure) Acute Anemia Acute Hypoxemia Acute Renal failure Acute Shortness of breath Acute Lung infiltrate Acute Hypotension Acute Severe sepsis Acute Pneumonia due to Pseudomonas Acute Hypoxia Acute Sepsis Acute Chronic Disease Mgmt/Transitional Care Acute Fever Acute History of pneumonia Acute VRE (vancomycin-resistant Enterococci) Acute 01/11/16 Palliative care encounter Acute Weakness Acute Chronic pneumonia Acute ESBL (extended spectrum beta-lactamase) producing bacteria infection Acute Leukocytosis Acute Pneumonia Acute Severe sepsis Acute
[2016-06-01] MEDS ORDERED: NS 1,000 ML IV ONE (16:07)
[2016-06-01] MEDS ORDERED: SODIUM CL FOR INH 10% 15 ML VIAL.NEB IH ONE (19:30)
[2016-06-01] MEDS ORDERED: NEPHROVITE FOLIC ACID/VIT B&C 1 TAB PO SCH (21:00)
[2016-06-01 22:51] VITALS: TEMP 98.7
[2016-06-01] MEDS ORDERED: PIPERACILLIN/TAZO 2.25 GM/DEX 50 ML IV SCH (22:58)
[2016-06-02] MEDS: HYDROCODONE/APAP 5/325 TAB PO PRN ×2 (02:56→11:34)
[2016-06-02] MEDS: HEPARIN 5,000 UNIT/0.5 ML SYR SC SCH ×2 (05:41→14:10)
[2016-06-02] MEDS: hydrOXYzine HCL 25 MG TAB PO PRN ×2 (05:41→14:18)
[2016-06-02] MEDS: PIPERACILLIN/TAZO 2.25 GM/DEX 50 ML IV SCH (05:41)
[2016-06-02 05:53] LABS: % IMMATURE GRANULYOCYTES 0.9 % (0.0-1.1); ABSOLUTE IMMATURE GRANULOCYTES 0.17 10^3/uL (0.00-0.10); ADD DIFF? NO; ADD MORPH? NO; ADD SCAN? NO; ATYPICAL LYMPHOCYTE FLAG 0 (0-99); FRAGMENT RBC FLAG 0 (0-99); HEMATOCRIT 33.3 % (40.0-51.0); HEMOGLOBIN 10.5 g/dL (13.7-17.5); LEFT SHIFT FLG 20 (0-99); LIPEMIA HEMOLYSIS FLAG 80 (0-99); MEAN CELL HEMOGLOBIN 33.4 pg (27.9-34.1); MEAN CELL HEMOGLOBIN CONCENTR. 31.5 g/dL (32.4-36.7); MEAN CELL VOLUME 106.1 fL (81.5-99.8); MEAN PLATELET VOLUME 9.1 fL (8.7-11.7); PLATELET CLUMPS FLAG 0 (0-99); PLATELET COUNT 118 10^3/uL (150-400); RED BLOOD CELL COUNT 3.14 10^6/uL (4.40-6.38); RED CELL DISTRIBUTION WIDTH 16.3 % (11.5-15.2)
[2016-06-02] MEDS: CALCIUM ACETATE 667 MG CAP PO SCH ×2 (08:40→11:34)
[2016-06-02] MEDS: AMIODARONE HCL 200 MG TAB PO SCH (08:41)
[2016-06-02] MEDS: guaiFENesin 600 MG TAB.ER PO SCH (08:41)
[2016-06-02] MEDS: MONTELUKAST SODIUM 10 MG TAB PO SCH (08:41)
[2016-06-02] MEDS: predniSONE 5 MG TAB PO SCH (08:41)
[2016-06-02] MEDS: LEVALBUTEROL INHALER 200 PUFFS/15 GM MDI IH SCH (09:17)
[2016-06-02] MEDS: BUDESONIDE 0.25MG/2ML DEYVIAL (5/POUCH) IH SCH (09:18)
[2016-06-02] MEDS: Mometasone/Formoterol [Dulera 200 Mcg/5 Mcg Inhaler] IH SCH (09:19)
[2016-06-02] MEDS ORDERED: VANCOMYCIN HCL/NORMAL SALINE 250 ML IV ONE (09:25)
[2016-06-02 09:30] VITALS: O2SAT 97
--- NOTE | 2016-06-02 10:18 | SOAPPROG ---
SOAP Progress Note Assessment/Plan: Assessment/Plan: ESRD: on HD MWF. - Will do HD tomorrow per routine. H/o renal transplant: pt weaned down on IS due to multiple pneumonias, now on prednisone alone, will continue. Anemia: Hgb 10.5, at goal, no need for epo, will monitor. NAS: continue calcium acetate with meals, will monitor phos. Subjective: No acute events overnight. Pt had some hypotension yesterday but refused to be bolused. He is feeling fine currently, no complaints. Objective: Vital Signs Temp Pulse Resp BP Pulse Ox 37.1 C 69 18 110/58 L 97 06/02/16 04:31 06/02/16 09:25 06/02/16 09:25 06/02/16 08:00 06/02/16 09:25 Laboratory Results 06/02/16 05:40 06/01/16 04:15 06/01/16 06/02/16 06/03/16 05:59 05:59 05:59 Intake Total 970 730 Balance 970 730 PT 16.5 SEC (12.0-15.0) H 06/01/16 04:15 INR 1.33 (0.83-1.16) H 06/01/16 04:15 General: alert and oriented, no acute distress Eyes: EOMI, PERRL OP: Clear CV: RRR Resp: nonlabored respirations on 3L NC Abd: Soft, NT Ext: no edema BLE Neuro: CN II-XII grossly intact, no asterixis Psych: cooperative, appropriate mood and affect Access: RIJ tunneled catheter, newly placed RUE AVF bandaged ICD10 Worksheet Patient Problems: Problems Problem Status Onset Fever Acute Hypoxemia Acute Leukocytosis Acute Pneumonia Acute Severe sepsis Acute Anemia Acute CHF (congestive heart failure) Acute Chronic Disease Mgmt/Transitional Care Acute Chronic pneumonia Acute Chronic renal failure Acute ESBL (extended spectrum beta-lactamase) producing bacteria infection Acute Extended spectrum beta lactamase (ESBL) resistance Acute 02/15/16 History of pneumonia Acute Hypotension Acute Hypoxia Acute Lung infiltrate Acute Mitral valve replaced Acute Palliative care encounter Acute Pneumonia Acute Pneumonia due to Pseudomonas Acute Renal failure Acute Renal transplant recipient Acute Sepsis Acute Severe sepsis Acute Shortness of breath Acute VRE (vancomycin-resistant Enterococci) Acute 01/11/16 Weakness Acute
--- NOTE | 2016-06-02 10:57 | PCMIDPN ---
Assessment/Plan: #Fever/rigors/leukocytosis - unclear source. No convincing evidence of recurrent PNA with stable hypoxia, CXR improved compared to last, minimal cough. Site of fistula procedure R forearm appeared healthy Considering bacteremia (HD cath, recent IV placement for fistula procedure 05/30) vs viral illness. No GI, urinary sx. Feels well and wants dc today --blood cx remain negative, viral PCR panel pending --dc zosyn as no clear evidence of PNA --one more dose of vancomycin until blood cx negative 48hours --dc tomorrow after HD if no new positive blood cx, follow up ID clinic on . # Leukocytosis: discordant with clinical picture, could be leukemoid reaction # Immunoglobulin deficiency: IgG pending #Bronchiectasis with pulmonary colonization with ESBL E coli (most recently), PsA, and VRE --contact isolation # ESRD: renal dosing of zosyn, intermittent vancomycin dosing meds zosyn 2.25gm IV q8 vancomycin 1gm X 1 microbiology 05/31 blood cx (2): NGTD 06/02 sputum cx pending Subjective: wants discharge today, but compromise to dc tomorrow off antibiotics after HD no diarrhea Objective: Vital Signs Temp Pulse Resp BP Pulse Ox 37.1 C 69 18 110/58 L 97 06/02/16 04:31 06/02/16 09:25 06/02/16 09:25 06/02/16 08:00 06/02/16 09:25 Laboratory Results 06/02/16 05:40 06/01/16 04:15 06/01/16 06/02/16 06/03/16 05:59 05:59 05:59 Intake Total 970 730 Balance 970 730 Gen: Thin male, breathing easy O/p MMM CV: RRR Chest : transient crackles L base, no wheezes, no accessory muscle use, 97% 3L Ext: no edema R chest wall tunneled cath c/d/i ICD10 Worksheet Patient Problems: Problems Problem Status Onset Fever Acute Hypoxemia Acute Leukocytosis Acute Pneumonia Acute Severe sepsis Acute Anemia Acute CHF (congestive heart failure) Acute Chronic Disease Mgmt/Transitional Care Acute Chronic pneumonia Acute Chronic renal failure Acute ESBL (extended spectrum beta-lactamase) producing bacteria infection Acute Extended spectrum beta lactamase (ESBL) resistance Acute 02/15/16 History of pneumonia Acute Hypotension Acute Hypoxia Acute Lung infiltrate Acute Mitral valve replaced Acute Palliative care encounter Acute Pneumonia Acute Pneumonia due to Pseudomonas Acute Renal failure Acute Renal transplant recipient Acute Sepsis Acute Severe sepsis Acute Shortness of breath Acute VRE (vancomycin-resistant Enterococci) Acute 01/11/16 Weakness Acute
[2016-06-02 11:47] VITALS: BP 109/42; PULSE 72; RESP 15
--- NOTE | 2016-06-02 13:03 | GDS ---
[f rep st] DISCHARGE SUMMARY DISCHARGE DIAGNOSES: 1. Resolved fever, rigors, and leukocytosis of unclear source, concerning for bacteremia versus vir al illness. 2. History of immunoglobulin deficiency. 3. Bronchiectasis with pulmonary colonization with extended-spectrum beta-lactamase Escherichia col i, pseudomonas, and vancomycin-resistant enterococcus. 4. End-stage renal disease, on hemodialysis. 5. Paroxysmal atrial fibrillation. 6. Asthma. 7. Resolved severe sepsis. CONSULTANTS: 1. Dr. Janelle Daniel, consulted for infectious disease. 2. Dr. Jenkins, nephrology. HOSPITAL COURSE AND STAY BY PROBLEM: Severe sepsis with fever and leukocytosis: The patient was ad mitted to the hospital where blood cultures were drawn that have not grown any organisms. He was in itially treated with empiric Zosyn and vancomycin with resolution of his fevers. Throughout the [facility]'s hospital course, he has not had any clinical evidence for pneumonia. On day of discharge, th e patient states he feels well, would like to go home. I discussed this with Dr. Daniel, who though t it was reasonable for him to go home with outpatient followup of his blood cultures. He will rece ashley a dose of vancomycin today and plans to proceed with dialysis tomorrow. He was instructed to se ek medical attention if his fevers return. PHYSICAL EXAMINATION: VITAL SIGNS: On the day of discharge, blood pressure 109/42, pulse 72, respi ratory rate 15, O2 saturation 97% on 3 L. Temperature afebrile. GENERAL: No acute distress. HEAR T: S1, S2. LUNGS: Clear. ABDOMEN: Soft. EXTREMITIES: No edema. NEURO: No focal motor or sen mayela deficits. SKIN: Clear. No rashes. There are some excoriations from itching over his back th at do not appear infected. DIAGNOSTICS: Blood cultures and sputum cultures are pending. Influenza A and B by PCR was negative . DISCHARGE MEDICATIONS: Please refer to discharge medication reconciliation in [facility] for details. DISCHARGE INSTRUCTIONS: The patient was discharged from the hospital where he should proceed with d ialysis as scheduled tomorrow. He will need outpatient followup of his blood cultures. Once again, he was instructed to seek emergency medical care if he develops any recurrent fevers or worsening o f his symptoms. /[id number]/MODL
[2016-06-03 11:34] LABS: RESPPCR RESULT SEE COMMENTS
== END 2016-06-02 15:49 | disposition home or self-care (01) | DRG 871 ==
LOC: F2W 21:43
PROVIDERS: ADMIT Internal Medicine; ATTEND Family Medicine
DX: A41.9 Sepsis, unspecified organism (principal); R65.20 Severe sepsis without septic shock; J18.9 Pneumonia, unspecified organism; J47.9 Bronchiectasis, uncomplicated; N18.6 End stage renal disease; I48.0 Paroxysmal atrial fibrillation; Z94.0 Kidney transplant status; I27.2 Other secondary pulmonary hypertension; J96.10 Chronic respiratory failure, unspecified whether with hypoxia or hypercapnia
CPT/HCPCS: 82784-90; 96374; J0696; J2543; J3370; J7626

== ENCOUNTER 2016-06-16 13:22 | Inpatient (IN) | payer OTHER ==
--- NOTE | 2016-06-16 13:27 | EDPHY ---
H & P Time Seen by Provider: 06/16/16 13:24 HPI/ROS: CHIEF COMPLAINT: Shortness of breath. HISTORY OF PRESENT ILLNESS:The patient is a 66-year-old male with a history of end-stage renal disease and bronchiectasis who presents via EMS for shortness of breath that began this morning. SOB at rest and with exertion. He admits associated fever and generalized weakness. He had similar symptoms 10 days ago and was placed on Zosyn and vancomycin for possible bacteremia/pneumonia. Blood cx's negative. He reports having an ongoing cough since then that has been slightly worse recently. He denies vomiting, chest pain, diarrhea, abdominal pain, headache. He reports intermittently having pneumonia over the past year. He did receive a flu shot this year. He receives dialysis Mondays, Wednesdays and Fridays. REVIEW OF SYSTEMS: A complete 10-point review of systems was performed and is negative except for those items mentioned in the HPI. Past Medical/Surgical History: Mitral valve prolapse, pneumonia. I reviewed the patient's past medical notes including Discharge Summary from . Social History: Lives alone at a private residence in [place]. Smoking Status: Never smoked Physical Exam: General Appearance: Alert, eyes closed, appears uncomfortable Eyes: Pupils equal and round, no conjunctival pallor or injection ENT, Mouth: Mucous membranes moist Neck: Normal inspection Respiratory: Lungs are clear to auscultation anteriorly Cardiovascular: Regular rate and rhythm Gastrointestinal: Abdomen is soft and non-tender Neurological: A&O, nonfocal exam Skin: Warm and dry, no rash Extremities: nontender, no pedal edema Psychiatric: flat affect Constitutional: Initial Vital Signs Temperature (C) 39.3 C H 06/16/16 13:33 Heart Rate 85 06/16/16 13:33 Respiratory Rate 16 06/16/16 13:33 Blood Pressure 132/55 H 06/16/16 13:33 O2 Sat (%) 86 L 06/16/16 13:33 O2 Delivery Mode Nasal Cannula O2 (L/minute) 2 Allergies/Adverse Reactions: Iodinated Contrast Media - Oral and [Iodinated Contrast Media - IV Dye] Allergy (Severe, Verified 05/31/16 17:39) Dyspnea IODINE CONTACT DYE Allergy (Severe, Uncoded 06/12/14 16:49) Dyspnea Home Medications: Medication Instructions Recorded Levalbuterol 1.25 mg [Xopenex 1 vial IH BID PRN 11/02/12 1.25MG Neb (*)] Zafirlukast [Accolate 20 MG] 20 mg PO BID 11/02/12 predniSONE 5 mg PO DAILY 05/22/15 Tiotropium Inhaler [Spiriva 18 mcg IH HS 11/10/15 Handihaler] Calcium Acetate [Phoslo (*)] 1,334 mg PO TIDMEAL #90 cap 12/08/15 Budesonide [Pulmicort 0.25MG/2Ml 0.25 mg IH BID 12/12/15 Neb (*)] Folic Acid/Vit B Complex and C 1 tab PO HS 04/13/16 [Dialyvite Tablet] Hypertonic Saline 7% 1 inh IH BID PRN 04/13/16 Levalbuterol Inhaler [Xopenex Hfa 2 puffs IH BID 04/13/16 Inhaler (*)] Mometasone/Formoterol [Dulera 200 1 puffs IH BID 04/13/16 Mcg/5 Mcg Inhaler] Sodium Polystyrene Sulf [Kionex 10 gm PO DAILY PRN 04/13/16 SPS Powder (*)] hydrOXYzine HCL [hydrOXYzine HCL 25 mg PO BID 04/13/16 (RX)] Amiodarone HCl [Pacerone (*)] 200 mg PO BID #0 tab 04/25/16 Carvedilol [Coreg (*)] 6.25 mg PO BIDMEAL #0 tab 04/25/16 guaiFENesin [Mucinex 600 MG (*)] 600 mg PO BID #0 tab.er 04/25/16 traZODone [traZODONE 50MG (*)] 50 mg PO HS PRN 06/16/16 Medical Decision Making - Diagnostics Imaging: Imaging Impressions Chest X-Ray 06/16/16 13:26 Impression: Right upper lobe pneumonia. Might this patient be aspirating? ED Course/Re-evaluation: 66-year-old male dialysis patient presents with shortness of breath that began this morning. He has associated fever and weakness. He is now having difficulty getting up and getting himself to the bathroom. He was admitted to the hospital on 05/31/2016 and was discharged 2 days ago with the diagnosis of fever, bronchiectasis with primary colonization with extended-spectrum beta-lactamase E. coli, pseudomonas, and vancomycin-resistant enterococcus. He was on IV Vancomycin and Zosyn while hospitalized. His culture returned pseudomonas. He reports having an intermittent history of pneumonia over the past year. On arrival he is 85% on room air and has been placed on 2L Oxygen. He is febrile at 39.3. An IV has been established and labs ordered. Blood cultures drawn. 650mg PO Tylenol administered for fever. Chest x-ray ordered. Meets SIRS criteria. No IVF given because of ESRD/dialysis. Pt requests po fluids only. i feel that this is appropriate. Lactate normal. WBC elevated at 12.41. Lactic acid is not elevated. Chest x-ray interpreted by me on the PACS system shows right upper lobe infiltrate. See Imaging section for radiologist report. The patient will be admitted for pneumonia treatment. Hospitalist paged. 1421: Consulted with Dr. Fontanez, hospitalist. He accepts admission. 1423: Consulted with pharmacist for appropriate dosing of Zosyn and vancomycin. Zosyn 2.25 g IV q.8 hours and vancomycin 1 g IV now. Differential Diagnosis: The differential diagnosis for the patient's shortness of breath and hypoxemia included but was not limited to pneumonia, myocardial infarction, acute mountain sickness, high altitude pulmonary edema, congestive heart failure, and pulmonary embolus. - Data Points Laboratory Results: Laboratory Results 06/16/16 13:35 06/16/16 13:35 06/16/16 06/16/16 06/16/16 13:54 13:35 13:35 WBC RBC Hgb Hct MCV MCH MCHC RDW Plt Count MPV Neut % (Auto) Lymph % (Auto) [place] % (Auto) Eos % (Auto) Baso % (Auto) Nucleat RBC Rel Count Absolute Neuts (auto) Absolute Lymphs (auto) Absolute Monos (auto) Absolute Eos (auto) Absolute Basos (auto) Absolute Nucleated RBC Immature Gran % Immature Gran # PT 13.6 SEC SEC (12.0-15.0) INR 1.05 (0.83-1.16) APTT 32.8 SEC SEC (23.0-38.0) VBG Lactic Acid Sodium 139 mEq/L mEq/L (134-144) Potassium 5.7 mEq/L H mEq/L (3.5-5.2) Chloride 102 mEq/L mEq/L (97-110) Carbon Dioxide 24 mEq/l mEq/l (22-31) Anion Gap 13 mEq/L mEq/L (8-16) BUN 43 mg/dL H mg/dL (7-23) Creatinine 5.3 mg/dL H mg/dL (0.7-1.3) Estimated GFR 11 Glucose 75 mg/dL mg/dL (70-100) Calcium 8.8 mg/dL mg/dL (8.5-10.4) Total Bilirubin 1.1 mg/dL mg/dL (0.1-1.4) Influenza A & B (PCR) Pending 06/16/16 06/16/16 13:35 13:35 WBC 12.41 10^3/uL H 10^3/uL (3.80-9.50) RBC 3.54 10^6/uL L 10^6/uL (4.40-6.38) Hgb 11.5 g/dL L g/dL (13.7-17.5) Hct 37.2 % L % (40.0-51.0) MCV 105.1 fL H fL (81.5-99.8) MCH 32.5 pg pg (27.9-34.1) MCHC 30.9 g/dL L g/dL (32.4-36.7) RDW 15.4 % H % (11.5-15.2) Plt Count 136 10^3/uL L 10^3/uL (150-400) MPV 8.4 fL L fL (8.7-11.7) Neut % (Auto) 79.1 % H % (39.3-74.2) Lymph % (Auto) 13.7 % L % (15.0-45.0) [place] % (Auto) 5.3 % % (4.5-13.0) Eos % (Auto) 1.2 % % (0.6-7.6) Baso % (Auto) 0.3 % % (0.3-1.7) Nucleat RBC Rel Count 0.0 % % (0.0-0.2) Absolute Neuts (auto) 9.81 10^3/uL H 10^3/uL (1.70-6.50) Absolute Lymphs (auto) 1.70 10^3/uL 10^3/uL (1.00-3.00) Absolute Monos (auto) 0.66 10^3/uL 10^3/uL (0.30-0.80) Absolute Eos (auto) 0.15 10^3/uL 10^3/uL (0.03-0.40) Absolute Basos (auto) 0.04 10^3/uL 10^3/uL (0.02-0.10) Absolute Nucleated RBC 0.00 10^3/uL 10^3/uL (0-0.01) Immature Gran % 0.4 % % (0.0-1.1) Immature Gran # 0.05 10^3/uL 10^3/uL (0.00-0.10) PT INR APTT VBG Lactic Acid 1.1 mmol/L mmol/L (0.7-2.1) Sodium Potassium Chloride Carbon Dioxide Anion Gap BUN Creatinine Estimated GFR Glucose Calcium Total Bilirubin Influenza A & B (PCR) Medications Given: Discontinued Medications Acetaminophen (Tylenol) 650 mg PO EDNOW ONE Stop: 06/16/16 13:37 Last Admin: 06/16/16 14:01 Dose: 650 mg Departure - Departure Disposition: [facility] Inpatient Acute Clinical Impression: Pneumonia Qualifiers: Pneumonia type: due to unspecified organism Laterality: right Lung location: upper lobe of lung Qualified Code(s): J18.1 - Lobar pneumonia, unspecified organism Condition: Fair Report Scribed for: Criselda Nuñez Report Scribed by: Davi Nguyễn Date of Report: 06/16/16 Time of Report: 13:33 Physician Review and Approval Statement: 06/16/16 13:33 Portions of this note were transcribed by a medical biller/coder. I personally performed a history, physical exam, medical decision making, and confirmed accuracy of information the transcribed note.
[2016-06-16] MEDS ORDERED: ACETAMINOPHEN 325 MG TAB PO ONE (13:36)
[2016-06-16 13:49] LABS: % IMMATURE GRANULYOCYTES 0.4 % (0.0-1.1); ABSOLUTE IMMATURE GRANULOCYTES 0.05 10^3/uL (0.00-0.10); ADD DIFF? NO; ADD MORPH? NO; ADD SCAN? NO; ATYPICAL LYMPHOCYTE FLAG 0 (0-99); FRAGMENT RBC FLAG 0 (0-99); HEMATOCRIT 37.2 % (40.0-51.0); HEMOGLOBIN 11.5 g/dL (13.7-17.5); LEFT SHIFT FLG 10 (0-99); LIPEMIA HEMOLYSIS FLAG 80 (0-99); MEAN CELL HEMOGLOBIN 32.5 pg (27.9-34.1); MEAN CELL HEMOGLOBIN CONCENTR. 30.9 g/dL (32.4-36.7); MEAN CELL VOLUME 105.1 fL (81.5-99.8); MEAN PLATELET VOLUME 8.4 fL (8.7-11.7); PLATELET CLUMPS FLAG 10 (0-99); PLATELET COUNT 136 10^3/uL (150-400); RED BLOOD CELL COUNT 3.54 10^6/uL (4.40-6.38); RED CELL DISTRIBUTION WIDTH 15.4 % (11.5-15.2)
[2016-06-16 13:58] LABS: INR 1.05 (0.83-1.16); PROTIME(PATIENT) 13.6 SEC (12.0-15.0)
[2016-06-16 13:59] LABS: APTT 32.8 SEC (23.0-38.0)
[2016-06-16 14:08] LABS: ANION GAP 13 mEq/L (8-16); BILIRUBIN,TOTAL 1.1 mg/dL (0.1-1.4); CALCIUM 8.8 mg/dL (8.5-10.4); CARBON DIOXIDE 24 mEq/l (22-31); CHLORIDE 102 mEq/L (97-110); CREATININE 5.3 mg/dL (0.7-1.3); GLOMERULAR FILTRATION RATE 11; GLUCOSE 75 mg/dL (70-100); POTASSIUM 5.7 mEq/L (3.5-5.2); SODIUM 139 mEq/L (134-144)
[2016-06-16] MEDS ORDERED: VANCOMYCIN HCL/NORMAL SALINE 250 ML IV ONE (14:28)
[2016-06-16] MEDS ORDERED: PIPERACILLIN/TAZO 2.25 GM/DEX 50 ML IV ONE (14:28)
[2016-06-16] MEDS ORDERED: ONDANSETRON 4 MG/2 ML VIAL IVP PRN (15:12)
[2016-06-16] MEDS ORDERED: oxyCODONE IR 5 MG TAB PO PRN (15:12)
[2016-06-16] MEDS ORDERED: ONDANSETRON DISINTEGRATING 4 MG TAB PO PRN (15:12)
[2016-06-16] MEDS ORDERED: ACETAMINOPHEN 325 MG TAB PO PRN (15:12)
[2016-06-16] MEDS ORDERED: [UNRECOGNIZED DRUG - OTHER] IH PRN (15:15)
[2016-06-16] MEDS ORDERED: LEVALBUTEROL 1.25 MG/3 ML DEYVIAL IH PRN (15:15)
[2016-06-16] MEDS ORDERED: SODIUM POLYSTYRENE SULF 454 GM POWDER PO PRN (15:15)
[2016-06-16] MEDS ORDERED: traZODone 50 MG TAB PO PRN (15:15)
[2016-06-16] MEDS ORDERED: SODIUM POLY SULF 15 GM/60 ML BOTTLE PO ONE (15:55)
--- NOTE | 2016-06-16 16:13 | GHP ---
[f rep st] HISTORY AND PHYSICAL DATE OF ADMISSION: 06/16/2016 CHIEF COMPLAINT: Fever and short of breath. HISTORY OF PRESENT ILLNESS: This is a 66-year-old man with multiple admissions for pneumonia with a history of end-stage renal disease who presents with fever. He woke up this morning with increased malaise. He felt short of breath this morning. He has had a productive cough. He also had a fever which prompted him to present to the emergency department. He gets dialysis Friday, Friday, Friday. Last dialysis was Friday. He notes that there were no issues with dialysis at that point. He denies headache, meningismus, nausea, vomiting, diarrhea, new rash on his skin. He also denies dysuria. He was recently admitted from May 31 through June 02, discharged home with no home health care. He tells me he was doing fine at home until today. He was admitted on that admission for fevers, was seen by Infectious Disease. He was empirically treated with vancomycin and Zosyn. He was not discharged on antibiotics. PAST MEDICAL/SURGICAL HISTORY: 1. Bronchiectasis with recurrent pseudomonal pneumonia. 2. Polycystic kidney disease with end-stage renal disease, on hemodialysis. 3. Immunodeficiency on IVIG. 4. Chronic respiratory failure with 2 L oxygen requirement at baseline. 5. Asthma. 6. Pulmonary hypertension. 7. West Nile virus with encephalitis. 8. Paroxysmal atrial fibrillation. PAST SURGICAL HISTORY: 1. Mitral valve replacement. 2. Renal transplant. MEDICATIONS: Please see medication reconciliation. ALLERGIES: Iodine SOCIAL HISTORY: Never smoked. FAMILY HISTORY: His father had polycystic kidney disease. REVIEW OF SYSTEMS: A 10-point review of systems is conducted and is negative except per HPI. PHYSICAL EXAMINATION: VITAL SIGNS: Blood pressure is 115/58, temperature 39.1 , pulse 70, respiration rate 17 saturating 93% on 2 L. GENERAL: The patient is a pleasant man who appears mildly diaphoretic and uncomfortable. HEENT: Normocephalic, atraumatic. NECK: No meningismus. Cardiovascular: A regular rate and rhythm. He has a 3/6 systolic murmur. PULMONARY: Diffuse crackles and rhonchi in his lungs. He is in mild respiratory distress. ABDOMEN: Soft, nontender, nondistended. SKIN: No rash. : No Nath. NEUROLOGICAL: Alert and oriented x3. He is moving all extremities. PSYCHIATRIC: Normal mood and affect. LABORATORY DATA: White count is 12.4. This is 79% neutrophils. INR is 1. Lactate 1.1. Potassium is 5.7. Creatinine 5.3, BUN 43. Influenza PCR is pending. DATA: 1. I discussed this with Dr. Nuñez in the emergency department. 2. I personally viewed and interpreted chest x-ray. This shows a new right upper lobe pneumonia. I compared this to olds. I reviewed his chart as well. IMPRESSION AND PLAN: A 66-year-old man with multiple admissions for pneumonia, has grown Pseudomonas out of his sputum, who presents with a new right upper lobe pneumonia. 1. Right upper lobe pneumonia. We will empirically treat with vancomycin and Zosyn. I will order sputum cultures. We will ask Infectious Disease to see him. I have placed this order. We will provide him nebulizers and his home inhalers. Influenza PCR is pending. 2. End-stage renal. I will discuss this with Nephrology. His potassium is 5.7 , which is not terribly high for his previous. I will give him a dose of Kionex today. He will be due for dialysis tomorrow. 3. Atrial fibrillation. He is currently regular. We will continue his amiodarone. 4. Immunodeficiency. He is receiving IVIG. I am unclear exactly when his last dose was or when he is due. 5. History of a mitral valve replacement. 6. Chronic hypoxic respiratory failure. Continue oxygen. 7. Asthma and severe pulmonary hypertension: We will continue his inhalers. He is on low dose of steroids, I will continue these. 8. Code status is full. 9. Deep venous thrombosis prophylaxis will be subcutaneous heparin. 10. Diet will be renal diet. /[id number]/MODL MTDD
[2016-06-16] MEDS ORDERED: D5W IV SCH (17:00)
[2016-06-16] MEDS ORDERED: SODIUM POLYSTYRENE SULF PO ONE (17:00)
[2016-06-16] MEDS ORDERED: TAZOBACTAM IV SCH (17:00)
[2016-06-16] MEDS ORDERED: PIPERACILLIN SODIUM IV SCH (17:00)
[2016-06-16] MEDS: IPRATROPIUM/ALBUTEROL 3 ML DEYVIAL IH SCH ×2 (18:00→21:01)
[2016-06-16] MEDS ORDERED: PIPERACILLIN/TAZO 4.5 GM/DEX 100 ML IV SCH (18:00)
[2016-06-16] MEDS: CALCIUM ACETATE 667 MG CAP PO SCH (18:39)
[2016-06-16] MEDS: CARVEDILOL 6.25 MG TAB PO SCH (18:39)
[2016-06-16] MEDS: hydrOXYzine HCL 25 MG TAB PO SCH (20:34)
[2016-06-16] MEDS: guaiFENesin 600 MG TAB.ER PO SCH (20:35)
[2016-06-16] MEDS: HEPARIN 5,000 UNIT/0.5 ML SYR SC SCH ×2 (20:35→20:42)
[2016-06-16] MEDS: AMIODARONE HCL 200 MG TAB PO SCH (20:35)
[2016-06-16] MEDS ORDERED: TIOTROPIUM INHALER 18 MCG/DOSE 5 DOSE/MDI IH SCH (21:00)
[2016-06-16] MEDS ORDERED: LEVALBUTEROL INHALER 200 PUFFS/15 GM MDI IH SCH (21:00)
[2016-06-16] MEDS: BUDESONIDE 0.25MG/2ML DEYVIAL (5/POUCH) IH SCH (21:01)
[2016-06-16] MEDS: Mometasone/Formoterol [Dulera 200 Mcg/5 Mcg Inhaler] 1 PUFFS IH SCH (21:03)
[2016-06-16] MEDS ORDERED: LEVALBUTEROL INHALER 200 PUFFS/15 GM MDI IH PRN (21:09)
[2016-06-16] MEDS ORDERED: TIOTROPIUM INHALER 18 MCG/DOSE 5 DOSE/MDI IH PRN (21:10)
[2016-06-16] MEDS: ZAFIRLUKAST 20 MG PO SCH (22:15)
[2016-06-16] MEDS: PIPERACILLIN/TAZO 2.25 GM/DEX 50 ML IV SCH (22:17)
[2016-06-17] MEDS: PIPERACILLIN/TAZO 2.25 GM/DEX 50 ML IV SCH ×2 (04:35→13:50)
[2016-06-17] MEDS: HEPARIN 5,000 UNIT/0.5 ML SYR SC SCH ×2 (04:37→13:59)
[2016-06-17 04:45] LABS: % IMMATURE GRANULYOCYTES 0.5 % (0.0-1.1); ADD DIFF? NO; ADD MORPH? NO; ADD SCAN? NO; ATYPICAL LYMPHOCYTE FLAG 0 (0-99); FRAGMENT RBC FLAG 0 (0-99); HEMATOCRIT 31.7 % (40.0-51.0); HEMOGLOBIN 9.6 g/dL (13.7-17.5); LEFT SHIFT FLG 80 (0-99); LIPEMIA HEMOLYSIS FLAG 80 (0-99); MEAN CELL HEMOGLOBIN 32.1 pg (27.9-34.1); MEAN CELL HEMOGLOBIN CONCENTR. 30.3 g/dL (32.4-36.7); MEAN PLATELET VOLUME 8.6 fL (8.7-11.7); PLATELET CLUMPS FLAG 10 (0-99); PLATELET COUNT 116 10^3/uL (150-400); RED BLOOD CELL COUNT 2.99 10^6/uL (4.40-6.38); RED CELL DISTRIBUTION WIDTH 15.4 % (11.5-15.2)
[2016-06-17 05:05] LABS: ALANINE AMINOTRANSFERASE 29 IU/L (21-72); ALBUMIN 2.8 g/dL (3.5-5.0); ALKALINE PHOSPHATASE 57 IU/L (38-126); ANION GAP 13 mEq/L (8-16); ASPARTATE AMINOTRANSFERASE 24 IU/L (17-59); BILIRUBIN,TOTAL 1.2 mg/dL (0.1-1.4); CALCIUM 8.3 mg/dL (8.5-10.4); CARBON DIOXIDE 24 mEq/l (22-31); CHLORIDE 104 mEq/L (97-110); CREATININE 6.4 mg/dL (0.7-1.3); GLOMERULAR FILTRATION RATE 9; GLUCOSE 76 mg/dL (70-100); SODIUM 141 mEq/L (134-144); TOTAL PROTEIN 4.8 g/dL (6.3-8.2)
[2016-06-17] MEDS: IPRATROPIUM/ALBUTEROL 3 ML DEYVIAL IH SCH ×4 (05:50→19:45)
[2016-06-17] MEDS: BUDESONIDE 0.25MG/2ML DEYVIAL (5/POUCH) IH SCH ×2 (10:11→19:46)
[2016-06-17] MEDS: Mometasone/Formoterol [Dulera 200 Mcg/5 Mcg Inhaler] 1 PUFFS IH SCH ×2 (10:14→19:48)
--- NOTE | 2016-06-17 10:18 | PDGENHP ---
History and Physical - Chief Complaint ESRD - History of Present Illness Mr. Kaye is a 66 yo M with h/o failed kidney transplant and is back on HD, has had multiple admissions for pneumonia and now is off tacrolimus and on prednisone only, here again with complaints of fever. Pt dialyzes MWF, last dialyzed on Friday with no issues. He states that yesterday he had a fever and was feeling fatigued, also with some worsening of his cough. His CXR looks like he has right upper lobe pneumonia. Of note, he had a fistula placed in R arm a few weeks ago, still maturing and using tunneled catheter. History Information - Allergies/Home Medication List Allergies/Adverse Reactions: Iodinated Contrast Media - Oral and [Iodinated Contrast Media - IV Dye] Allergy (Severe, Verified 05/31/16 17:39) Dyspnea IODINE CONTACT DYE Allergy (Severe, Uncoded 06/12/14 16:49) Dyspnea Home Medications: Levalbuterol 1.25 mg [Xopenex 1.25MG Neb (*)] 1 vial IH BID PRN 11/02/12 [Last Taken 06/16/16 09:00] Zafirlukast [Accolate 20 MG] 20 mg PO BID 11/02/12 [Last Taken 06/16/16 09:00] predniSONE 5 mg PO DAILY 05/22/15 [Last Taken 06/16/16 09:00] Tiotropium Inhaler [Spiriva Handihaler] 18 mcg IH HS 11/10/15 [Last Taken 20:00] Budesonide [Pulmicort 0.25MG/2Ml Neb (*)] 0.25 mg IH BID 12/12/15 [Last Taken 20:00] Folic Acid/Vit B Complex and C [Dialyvite Tablet] 1 tab PO HS 04/13/16 [Last Taken 06/15/16 20:00] Hypertonic Saline 7% 1 inh IH BID PRN 04/13/16 [Last Taken 04/09/16] Levalbuterol Inhaler [Xopenex Hfa Inhaler (*)] 2 puffs IH BID 04/13/16 [Last Taken 06/16/16 09:00] Mometasone/Formoterol [Dulera 200 Mcg/5 Mcg Inhaler] 1 puffs IH BID 04/13/16 [ Last Taken 06/16/16 09:00] Sodium Polystyrene Sulf [Kionex SPS Powder (*)] 10 gm PO DAILY PRN 04/13/16 [ Last Taken Unknown] hydrOXYzine HCL [hydrOXYzine HCL (RX)] 25 mg PO BID 04/13/16 [Last Taken 09:00] traZODone [traZODONE 50MG (*)] 50 mg PO HS PRN 06/16/16 [Last Taken 06/15/16 21: 00] I have personally reviewed and updated: medical history - Past Medical History atrial fibrillation, ESRD, pneumonia Additional medical history: Bronchiectasis with recurrent pseudomonal pneumonia , 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 renal transplant. 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 Review of Systems ROS: 10pt was reviewed & negative except for what was stated in HPI & below Physical Exam Temp Pulse Resp BP Pulse Ox 37.6 C 70 17 113/53 L 93 06/17/16 04:28 06/17/16 04:28 06/17/16 04:28 06/17/16 04:28 06/17/16 04:28 O2 (L/minute) 3 Constitutional: no apparent distress, not in pain Eyes: PERRL, anicteric sclera, EOMI Ears, Nose, Mouth, Throat: moist mucous membranes, hearing normal Cardiovascular: regular rate and rhythym, pulses symmetric bilaterally, edema ( trace in lower extremities) Peripheral Pulses: 2+: dorsalis-pedis (R), dorsalis-pedis (L) Respiratory: no respiratory distress, rhonchi Gastrointestinal: normoactive bowel sounds, soft, non-tender abdomen Skin: warm, No rash Musculoskeletal: no muscle tenderness, no joint effusions Neurologic: AAOx3, CN II-XII Intact, No asterixes Psychiatric: interacting appropriately, not anxious, not encephalopathic Lab Data & Imaging Review 06/17/16 04:27 06/17/16 04:27 WBC 19.38 10^3/uL (3.80-9.50) H 06/17/16 04:27 RBC 2.99 10^6/uL (4.40-6.38) L 06/17/16 04:27 Hgb 9.6 g/dL (13.7-17.5) L 06/17/16 04:27 Hct 31.7 % (40.0-51.0) L 06/17/16 04:27 MCV 106.0 fL (81.5-99.8) H 06/17/16 04:27 MCH 32.1 pg (27.9-34.1) 06/17/16 04:27 MCHC 30.3 g/dL (32.4-36.7) L 06/17/16 04:27 RDW 15.4 % (11.5-15.2) H 06/17/16 04:27 Plt Count 116 10^3/uL (150-400) L 06/17/16 04:27 MPV 8.6 fL (8.7-11.7) L 06/17/16 04:27 Neut % (Auto) 75.3 % (39.3-74.2) H 06/17/16 04:27 Lymph % (Auto) 17.6 % (15.0-45.0) 06/17/16 04:27 [place] % (Auto) 5.0 % (4.5-13.0) 06/17/16 04:27 Eos % (Auto) 1.1 % (0.6-7.6) 06/17/16 04:27 Baso % (Auto) 0.5 % (0.3-1.7) 06/17/16 04:27 Nucleat RBC Rel Count 0.0 % (0.0-0.2) 06/17/16 04:27 Absolute Neuts (auto) 14.60 10^3/uL (1.70-6.50) H 06/17/16 04:27 Absolute Lymphs (auto) 3.41 10^3/uL (1.00-3.00) H 06/17/16 04:27 Absolute Monos (auto) 0.96 10^3/uL (0.30-0.80) H 06/17/16 04:27 Absolute Eos (auto) 0.22 10^3/uL (0.03-0.40) 06/17/16 04:27 Absolute Basos (auto) 0.09 10^3/uL (0.02-0.10) 06/17/16 04:27 Absolute Nucleated RBC 0.00 10^3/uL (0-0.01) 06/17/16 04:27 Immature Gran % 0.5 % (0.0-1.1) 06/17/16 04:27 Immature Gran # 0.10 10^3/uL (0.00-0.10) 06/17/16 04:27 PT 13.6 SEC (12.0-15.0) 06/16/16 13:35 INR 1.05 (0.83-1.16) 06/16/16 13:35 APTT 32.8 SEC (23.0-38.0) 06/16/16 13:35 VBG Lactic Acid 1.1 mmol/L (0.7-2.1) 06/16/16 13:35 Sodium 141 mEq/L (134-144) 06/17/16 04:27 Potassium 5.0 mEq/L (3.5-5.2) 06/17/16 04:27 Chloride 104 mEq/L (97-110) 06/17/16 04:27 Carbon Dioxide 24 mEq/l (22-31) 06/17/16 04:27 Anion Gap 13 mEq/L (8-16) 06/17/16 04:27 BUN 55 mg/dL (7-23) H 06/17/16 04:27 Creatinine 6.4 mg/dL (0.7-1.3) H 06/17/16 04:27 Estimated GFR 9 06/17/16 04:27 Glucose 76 mg/dL (70-100) 06/17/16 04:27 Calcium 8.3 mg/dL (8.5-10.4) L 06/17/16 04:27 Total Bilirubin 1.2 mg/dL (0.1-1.4) 06/17/16 04:27 AST 24 IU/L (17-59) 06/17/16 04:27 ALT 29 IU/L (21-72) 06/17/16 04:27 Alkaline Phosphatase 57 IU/L (38-126) 06/17/16 04:27 Total Protein 4.8 g/dL (6.3-8.2) L 06/17/16 04:27 Albumin 2.8 g/dL (3.5-5.0) L 06/17/16 04:27 Influenza A & B (PCR) NEGATIVE FOR FLU (NEGATIVE) 06/16/16 13:54 Assessment & Plan Assessment: Assessment/Plan: ESRD: on HD MWF. - HD being done today per routine. - Next HD on Friday. h/o renal transplant: pt no longer on tacrolimus due to recurrent pneumonias and resistant infections. Continue prednisone. Anemia: Hgb 9.6, will continue to monitor and provide epo as needed. Thank you for the interesting consult. Nephrology will continue to follow, please call if you have any additional questions or concerns.
--- NOTE | 2016-06-17 11:06 | HOSPPROG ---
Hospitalist Progress Note Assessment/Plan: # Sepsis - Fevers/leukocytosis- presumed source pulmonary - long standing h/o complicated pneumonias - Tm 39.3 overnight blood cultures and sputum cx - NGTD CXR (personally reviewed and interpreted) baseline abnormal and shows new RUL infiltrate - continue empiric broad spectrum Abx - ID to consult # Acute leukocytosis - WBC up to 19 this am - on broad spectrum abx - influenza negative - follow cultures - ID to consult # Chronic hypoxic respiratory failure 2/2 bronchiectasis - oxygen saturations 93 % on 2L - cont abx as above - cont mucinex and inhaled medications # Acute hyperkalemia - received Kayexalate overnight - potassium 5.7-> 5.0 overnight - HD today # ESRD 2/2 polycystic kidney disease- cont HD per nephrology # Immunodeficiency - receives IVIG # permanent Atrial fibrillation - cont amiodarone # severe protein calorie malnutrition - BMI 17 - secondary to chronic medical illness - cont encouraging PO - nourishments with meals # proph - lovenox #diet - regular # dispo- > 2 MN as presenting with sepsis - requiring IV antibiotics and care I have discussed the case with ID - they will consult today and provide guidance on antibiotics and any additional diagnostics Subjective: tired Objective: Vital Signs Temp Pulse Resp BP Pulse Ox 37.6 C 82 18 113/53 L 92 06/17/16 04:28 06/17/16 10:15 06/17/16 10:15 06/17/16 04:28 06/17/16 10:15 Microbiology 06/17/16 00:55 - Final Sputum, Expectorated Laboratory Results 06/17/16 04:27 06/17/16 04:27 06/16/16 06/17/16 06/18/16 05:59 05:59 05:59 Intake Total 400 Output Total 0 Balance 400 PT 13.6 SEC (12.0-15.0) 06/16/16 13:35 INR 1.05 (0.83-1.16) 06/16/16 13:35 - Physical Exam Constitutional: chronically ill appearing, cachectic Eyes: anicteric sclera Ears, Nose, Mouth, Throat: dry mucous membranes Cardiovascular: regular rate and rhythym Respiratory: no respiratory distress, inspiratory crackles Gastrointestinal: normoactive bowel sounds Genitourinary: no bladder fullness Skin: warm Musculoskeletal: No asymmetric calves Neurologic: AAOx3 Psychiatric: depressed, flat affect Lymph, Heme, Immunologic: no cervical LAD ICD10 Worksheet Patient Problems: Problems Problem Status Onset Chronic Disease Mgmt/Transitional Care Acute Pneumonia Acute Anemia Acute CHF (congestive heart failure) Acute Chronic Disease Mgmt/Transitional Care Acute Chronic pneumonia Acute Chronic renal failure Acute ESBL (extended spectrum beta-lactamase) producing bacteria infection Acute Extended spectrum beta lactamase (ESBL) resistance Acute 02/15/16 Fever Acute History of pneumonia Acute Hypotension Acute Hypoxemia Acute Hypoxia Acute Leukocytosis Acute Lung infiltrate Acute Mitral valve replaced Acute Palliative care encounter Acute Pneumonia Acute Pneumonia Acute Pneumonia due to Pseudomonas Acute Renal failure Acute Renal transplant recipient Acute Sepsis Acute Severe sepsis Acute Severe sepsis Acute Shortness of breath Acute VRE (vancomycin-resistant Enterococci) Acute 01/11/16 Weakness Acute
[2016-06-17] MEDS: guaiFENesin 600 MG TAB.ER PO SCH (11:56)
[2016-06-17] MEDS: hydrOXYzine HCL 25 MG TAB PO SCH (11:56)
[2016-06-17] MEDS: predniSONE 5 MG TAB PO SCH (11:57)
[2016-06-17] MEDS: CARVEDILOL 6.25 MG TAB PO SCH ×2 (11:57→18:47)
[2016-06-17] MEDS: CALCIUM ACETATE 667 MG CAP PO SCH ×3 (11:57→18:07)
[2016-06-17] MEDS: AMIODARONE HCL 200 MG TAB PO SCH (11:58)
[2016-06-17] MEDS: ZAFIRLUKAST 20 MG PO SCH (13:23)
[2016-06-17] MEDS ORDERED: VANCOMYCIN HCL/NORMAL SALINE 250 ML IV ONE (15:00)
--- NOTE | 2016-06-17 16:13 | PCMIDPN ---
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 Sputum and blood cultures are pending for further evaluation. 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 Will try to obtain this study result. Continue empiric vancomycin dosed by levels pending blood culture results. Will change Zosyn to meropenem given prior isolation of ESBL pending additional culture data. 06/17/16 16:08 Subjective: Patient readmitted with abrupt onset of fever and rigors with increased cough. Cough feels different than when he has had pseudomonal pneumonia before. Recent hospitalization in late May for fever and rigors of unclear etiology with negative cultures other than sputum sample showing Pseudomonas which was felt to represent colonization. Patient seen by Dr. Daniel on 06/06/2016 after hospitalization with resolution of symptoms noted. He was maintained off antibiotics. No other specific complaints at time of current presentation. Patient was admitted and started empirically on vancomycin dosed according to levels and piperacillin/tazobactam. Objective: Vital Signs Temp Pulse Resp BP Pulse Ox 37.4 C 85 20 123/54 H 94 06/17/16 11:47 06/17/16 16:01 06/17/16 16:01 06/17/16 11:47 06/17/16 16:01 Microbiology 06/17/16 00:55 - Final Sputum, Expectorated Laboratory Results 06/17/16 04:27 06/17/16 04:27 06/16/16 06/17/16 06/18/16 05:59 05:59 05:59 Intake Total 400 Output Total 0 Balance 400 Tm 39.3 Blood cultures x2 pending Sputum with mixed Gram stain Sputum from 06/02/2016 with growth of solis susceptible Pseudomonas Chest x-ray with new right upper lobe infiltrate - Physical Exam General Appearance: alert, no apparent distress, non-toxic EENT: No scleral icterus, No thrush Respiratory: bronchial breath sounds (Right upper lung field), No respiratory distress Cardiac/Chest: regular rate, rhythm, systolic murmur (2/6 left upper sternal border) Extremities: other (Right upper extremity fistula site nontender without overlying cellulitis or drainage; incision healing well laterally) Abdomen: non-tender, No distended Skin: No embolic lesions ICD10 Worksheet Patient Problems: Problems Problem Status Onset Chronic Disease Mgmt/Transitional Care Acute Pneumonia Acute Anemia Acute CHF (congestive heart failure) Acute Chronic Disease Mgmt/Transitional Care Acute Chronic pneumonia Acute Chronic renal failure Acute ESBL (extended spectrum beta-lactamase) producing bacteria infection Acute Extended spectrum beta lactamase (ESBL) resistance Acute 02/15/16 Fever Acute History of pneumonia Acute Hypotension Acute Hypoxemia Acute Hypoxia Acute Leukocytosis Acute Lung infiltrate Acute Mitral valve replaced Acute Palliative care encounter Acute Pneumonia Acute Pneumonia Acute Pneumonia due to Pseudomonas Acute Renal failure Acute Renal transplant recipient Acute Sepsis Acute Severe sepsis Acute Severe sepsis Acute Shortness of breath Acute VRE (vancomycin-resistant Enterococci) Acute 01/11/16 Weakness Acute
[2016-06-17] MEDS ORDERED: HEPARIN 50,000 UNIT/10 ML VIAL ONE (17:45)
[2016-06-17] MEDS: MEROPENEM 500 MG in NS 100 ML IV SCH (17:58)
[2016-06-17] MEDS: MONTELUKAST SODIUM 10 MG TAB PO SCH (18:07)
[2016-06-18] MEDS: AMIODARONE HCL 200 MG TAB PO SCH ×3 (01:13→20:46)
[2016-06-18] MEDS: guaiFENesin 600 MG TAB.ER PO SCH ×3 (01:13→20:40)
[2016-06-18] MEDS: hydrOXYzine HCL 25 MG TAB PO SCH ×3 (01:14→20:40)
[2016-06-18] MEDS: HEPARIN 5,000 UNIT/0.5 ML SYR SC SCH ×4 (01:14→20:36)
[2016-06-18 05:06] LABS: HEMATOCRIT 31.2 % (40.0-51.0); HEMOGLOBIN 9.6 g/dL (13.7-17.5); MEAN CELL HEMOGLOBIN 32.8 pg (27.9-34.1); MEAN CELL HEMOGLOBIN CONCENTR. 30.8 g/dL (32.4-36.7); MEAN CELL VOLUME 106.5 fL (81.5-99.8); RED BLOOD CELL COUNT 2.93 10^6/uL (4.40-6.38); RED CELL DISTRIBUTION WIDTH 15.1 % (11.5-15.2)
[2016-06-18] MEDS: IPRATROPIUM/ALBUTEROL 3 ML DEYVIAL IH SCH ×4 (05:52→19:58)
[2016-06-18] MEDS: CALCIUM ACETATE 667 MG CAP PO SCH ×3 (08:24→17:23)
[2016-06-18] MEDS: predniSONE 5 MG TAB PO SCH (08:24)
[2016-06-18] MEDS: MEROPENEM 500 MG in NS 100 ML IV SCH (08:24)
[2016-06-18] MEDS: CARVEDILOL 6.25 MG TAB PO SCH ×2 (08:25→17:23)
[2016-06-18] MEDS: BUDESONIDE 0.25MG/2ML DEYVIAL (5/POUCH) IH SCH ×2 (10:01→19:58)
[2016-06-18] MEDS: Mometasone/Formoterol [Dulera 200 Mcg/5 Mcg Inhaler] 1 PUFFS IH SCH ×2 (11:27→19:58)
--- NOTE | 2016-06-18 12:48 | PCMIDPN ---
Assessment/Plan: Assessment/Plan: 1. RUL pneumonia: - New. Reviewed CXR from admit and recent end of May study. -sputum cx in progress. So far with yeast. -In past has had recurrent pseudomonas and ESBL E.coli pneumonias. -On Merem, and intermittent dosing of Vanco. -Vanco re-dosed yesterday based on random level of 10. -Will recheck random vanco level in Am and redose if <15. 2. Leukocytosis: - uncertain etiology. - has had fluctuations in wbc in past. - new loose stools- will check c. diff - if continues to worsen and c. diff negative, may need additional imaging Meds merem 500mg daily vanco 1g x1 -06/17/16 Subjective: TEmps overall improved. Patient also feeling less fatigued than on admission. has shortness of breath, cough and sputum production. Overall sputum production has been more than in recent past. He states it is clear. He reports loose stools starting yesterday. He wonders if it is related to Singulair..He denies abd pain, nausea. He isn't happy about having a renal diet and wants more choices to eat. Denies pain. Objective: Vital Signs Temp Pulse Resp BP Pulse Ox 36.8 C 68 16 108/54 L 97 06/18/16 12:13 06/18/16 12:13 06/18/16 12:13 06/18/16 12:13 06/18/16 12:13 Microbiology 06/17/16 00:55 - Final Sputum, Expectorated Laboratory Results 06/18/16 04:18 06/17/16 04:27 06/17/16 06/18/16 06/19/16 05:59 05:59 05:59 Intake Total 400 700 Output Total 0 1500 Balance 400 -800 - Physical Exam General Appearance: alert, no apparent distress Respiratory: coarse breath sounds Cardiac/Chest: regular rate, rhythm Extremities: No swelling Abdomen: normal bowel sounds, non-tender, soft, No distended Skin: No rash ICD10 Worksheet Patient Problems: Problems Problem Status Onset Chronic Disease Mgmt/Transitional Care Acute Pneumonia Acute Anemia Acute CHF (congestive heart failure) Acute Chronic Disease Mgmt/Transitional Care Acute Chronic pneumonia Acute Chronic renal failure Acute ESBL (extended spectrum beta-lactamase) producing bacteria infection Acute 12/ 21/16 Extended spectrum beta lactamase (ESBL) resistance Acute 02/15/16 Fever Acute History of pneumonia Acute Hypotension Acute Hypoxemia Acute Hypoxia Acute Leukocytosis Acute Lung infiltrate Acute Mitral valve replaced Acute Palliative care encounter Acute Pneumonia Acute Pneumonia Acute Pneumonia due to Pseudomonas Acute Renal failure Acute Renal transplant recipient Acute Sepsis Acute Severe sepsis Acute Severe sepsis Acute Shortness of breath Acute VRE (vancomycin-resistant Enterococci) Acute 01/11/16 Weakness Acute
--- NOTE | 2016-06-18 16:22 | HOSPPROG ---
Hospitalist Progress Note Assessment/Plan: # Sepsis - Fevers/leukocytosis- presumed source pulmonary - long standing h/o complicated pneumonias - fevers resolved overnight blood cultures and sputum cx - NGTD CT chest from last admit (personally reviewed and interpreted) shows bilateral effusions CXR - baseline abnormal and shows new RUL infiltrate - continue empiric broad spectrum Abx - ID following # Acute leukocytosis - WBC 19-> 23 this am - has some loose stools non-bloody - on broad spectrum abx - influenza negative - checking C. diff - follow cultures - ID following # Chronic hypoxic respiratory failure 2/2 bronchiectasis - oxygen saturations 93 % on 2L - cont abx as above - cont mucinex and inhaled medications # Acute hyperkalemia - received Kayexalate on admit - potassium 5.0 - HD per nephrology # ESRD 2/2 polycystic kidney disease- cont HD per nephrology # Immunodeficiency - receives IVIG # permanent Atrial fibrillation - cont amiodarone # severe protein calorie malnutrition - BMI 17 - secondary to chronic medical illness - cont encouraging PO - nourishments with meals # proph - lovenox #diet - regular # dispo- > 2 MN as presenting with sepsis - requiring IV antibiotics and care I have discussed the case with ID - will check c.diff today as an explanation for rising WBC in setting of broad abx Subjective: loose stools Objective: Vital Signs Temp Pulse Resp BP Pulse Ox 36.8 C 72 24 H 108/54 L 91 L 06/18/16 12:13 06/18/16 15:24 06/18/16 15:24 06/18/16 12:13 06/18/16 15:24 Microbiology 06/17/16 00:55 - Final Sputum, Expectorated Laboratory Results 06/18/16 04:18 06/17/16 04:27 06/17/16 06/18/16 06/19/16 05:59 05:59 05:59 Intake Total 400 700 Output Total 0 1500 Balance 400 -800 PT 13.6 SEC (12.0-15.0) 06/16/16 13:35 INR 1.05 (0.83-1.16) 06/16/16 13:35 - Physical Exam Constitutional: cachectic Eyes: anicteric sclera Ears, Nose, Mouth, Throat: moist mucous membranes Cardiovascular: regular rate and rhythym, systolic murmur Respiratory: no respiratory distress, inspiratory crackles Gastrointestinal: normoactive bowel sounds, soft, non-tender abdomen Genitourinary: no bladder fullness Skin: warm Musculoskeletal: No asymmetric calves Neurologic: AAOx3 Psychiatric: flat affect Lymph, Heme, Immunologic: no cervical LAD ICD10 Worksheet Patient Problems: Problems Problem Status Onset Chronic Disease Mgmt/Transitional Care Acute Pneumonia Acute Anemia Acute CHF (congestive heart failure) Acute Chronic Disease Mgmt/Transitional Care Acute Chronic pneumonia Acute Chronic renal failure Acute ESBL (extended spectrum beta-lactamase) producing bacteria infection Acute Extended spectrum beta lactamase (ESBL) resistance Acute 02/15/16 Fever Acute History of pneumonia Acute Hypotension Acute Hypoxemia Acute Hypoxia Acute Leukocytosis Acute Lung infiltrate Acute Mitral valve replaced Acute Palliative care encounter Acute Pneumonia Acute Pneumonia Acute Pneumonia due to Pseudomonas Acute Renal failure Acute Renal transplant recipient Acute Sepsis Acute Severe sepsis Acute Severe sepsis Acute Shortness of breath Acute VRE (vancomycin-resistant Enterococci) Acute 01/11/16 Weakness Acute
--- NOTE | 2016-06-18 16:54 | SOAPPROG ---
SOAP Progress Note Assessment/Plan: Assessment: 1. esrd: hd tomorrow on typical [facility] schedule. Dialyzes at [facility] under care of Dr. Benson. S/p recent avf surgery, suspect this is a 2-stage procedure. Volume status much improved from when I last saw him. 2. fever/leukocytosis: on rx for pneumonia, also now C Dif+. ID seeing. Plan: 06/18/16 16:50 Subjective: No particular c/o. Working on computer. Uncertain if he is having diarrhea. Objective: Vital Signs Temp Pulse Resp BP Pulse Ox 36.8 C 72 24 H 108/54 L 91 L 06/18/16 12:13 06/18/16 15:24 06/18/16 15:24 06/18/16 12:13 06/18/16 15:24 Microbiology 06/17/16 00:55 - Final Sputum, Expectorated Laboratory Results 06/18/16 04:18 06/17/16 04:27 06/17/16 06/18/16 06/19/16 05:59 05:59 05:59 Intake Total 400 700 Output Total 0 1500 Balance 400 -800 PT 13.6 SEC (12.0-15.0) 06/16/16 13:35 INR 1.05 (0.83-1.16) 06/16/16 13:35 Physical Exam - Physical Exam General Appearance: no apparent distress Extremities: pedal edema (none), other (patent avf in R forearm) ICD10 Worksheet Patient Problems: Problems Problem Status Onset Chronic Disease Mgmt/Transitional Care Acute Pneumonia Acute Anemia Acute CHF (congestive heart failure) Acute Chronic Disease Mgmt/Transitional Care Acute Chronic pneumonia Acute Chronic renal failure Acute ESBL (extended spectrum beta-lactamase) producing bacteria infection Acute Extended spectrum beta lactamase (ESBL) resistance Acute 02/15/16 Fever Acute History of pneumonia Acute Hypotension Acute Hypoxemia Acute Hypoxia Acute Leukocytosis Acute Lung infiltrate Acute Mitral valve replaced Acute Palliative care encounter Acute Pneumonia Acute Pneumonia Acute Pneumonia due to Pseudomonas Acute Renal failure Acute Renal transplant recipient Acute Sepsis Acute Severe sepsis Acute Severe sepsis Acute Shortness of breath Acute VRE (vancomycin-resistant Enterococci) Acute 01/11/16 Weakness Acute
[2016-06-18] MEDS: MONTELUKAST SODIUM 10 MG TAB PO SCH (17:23)
[2016-06-18] MEDS: VANCOMYCIN 125 MG/2.5 ML UDL PO SCH (20:40)
[2016-06-19] MEDS: HEPARIN 5,000 UNIT/0.5 ML SYR SC SCH ×3 (05:45→21:22)
[2016-06-19] MEDS: VANCOMYCIN 125 MG/2.5 ML UDL PO SCH ×4 (05:49→21:22)
[2016-06-19] MEDS: IPRATROPIUM/ALBUTEROL 3 ML DEYVIAL IH SCH ×4 (05:51→20:42)
[2016-06-19 06:04] LABS: ANION GAP 12 mEq/L (8-16); CALCIUM 8.6 mg/dL (8.5-10.4); CARBON DIOXIDE 26 mEq/l (22-31); CHLORIDE 97 mEq/L (97-110); CREATININE 5.7 mg/dL (0.7-1.3); GLOMERULAR FILTRATION RATE 10; GLUCOSE 88 mg/dL (70-100); POTASSIUM 4.8 mEq/L (3.5-5.2); SODIUM 135 mEq/L (134-144)
--- NOTE | 2016-06-19 09:28 | PCMIDPN ---
Assessment/Plan: Assessment: Right upper lobe pneumonia-Pseudomonas aeruginosa growing in sputum culture. Prior isolates from previous visits were pansensitive. Will continue meropenem as he is tolerating and I anticipate that he will transfer to oral fluoroquinolones upon discharge. Discharge is likely going to be in 1-2 days. C diff positive diarrhea - leukocytosis is probably secondary to this process. Patient states that the diarrhea symptoms are not significant today. He continues on oral vancomycin 4 times daily. Will reduce this dose to 125 rather than 250 mg. Plan: 1. Continue meropenem. 2. Continue oral vancomycin but reduce dose to 125 mg 4 times daily. 3. No further IV vancomycin dosing required. 4. Anticipate discharge likely on Friday. 06/19/16 09:26 06/19/16 09:28 Subjective: Patient is sitting up in his chair in his hospital room. He is working on his computer laptop. He states that his breathing is improved but not back to baseline yet. Diarrhea symptoms are lessened. No abdominal pain. No fevers or chills. Objective: IV vancomycin by levels Meropenem # 3 P.o. vancomycin # 1 Vital Signs Temp Pulse Resp BP Pulse Ox 36.4 C 76 16 125/68 H 95 06/19/16 08:00 06/19/16 08:00 06/19/16 08:00 06/19/16 08:00 06/19/16 08:00 Microbiology 06/17/16 00:55 - Final Sputum, Expectorated Laboratory Results 06/18/16 04:18 06/19/16 05:01 06/18/16 06/19/16 06/20/16 05:59 05:59 05:59 Intake Total 700 1150 Output Total 1500 Balance -800 1150 - Physical Exam General Appearance: WD/WN, alert, no apparent distress, thin Respiratory: normal breath sounds, crackles (In bases bilaterally.), No lungs clear (Notably right upper lobe is without rhonchi or crackle.), No respiratory distress Cardiac/Chest: regular rate, rhythm, No tachycardia Extremities: non-tender, normal inspection Skin: normal color, warm/dry, No rash Neuro/Psych: alert, normal mood/affect, oriented x 3 ICD10 Worksheet Patient Problems: Problems Problem Status Onset C. difficile diarrhea Acute ~06/18/16 Chronic Disease Mgmt/Transitional Care Acute Pneumonia Acute Anemia Acute CHF (congestive heart failure) Acute Chronic Disease Mgmt/Transitional Care Acute Chronic pneumonia Acute Chronic renal failure Acute ESBL (extended spectrum beta-lactamase) producing bacteria infection Acute Extended spectrum beta lactamase (ESBL) resistance Acute 02/15/16 Fever Acute History of pneumonia Acute Hypotension Acute Hypoxemia Acute Hypoxia Acute Leukocytosis Acute Lung infiltrate Acute Mitral valve replaced Acute Palliative care encounter Acute Pneumonia Acute Pneumonia Acute Pneumonia due to Pseudomonas Acute Renal failure Acute Renal transplant recipient Acute Sepsis Acute Severe sepsis Acute Severe sepsis Acute Shortness of breath Acute VRE (vancomycin-resistant Enterococci) Acute 01/11/16 Weakness Acute
--- NOTE | 2016-06-19 09:40 | HOSPPROG ---
Hospitalist Progress Note Assessment/Plan: # Sepsis - Fevers/leukocytosis- 2/2 Cdiff and pneumonia- fevers resolved since admit blood cultures NGTD and sputum cx with pseudomonas CT chest from last admit (personally reviewed and interpreted) shows bilateral effusions- infiltrate on CXR new - continue meropenem - ID following # Acute C.diff colitis - started PO vancomycin # Acute leukocytosis - WBC 19-> 23 - pseudomonal pna and cdiff colitis - influenza negative - cont PO vancomycin - con meropenem - ID following # Chronic hypoxic respiratory failure 2/2 bronchiectasis - oxygen saturations 95 % on 1L - cont abx as above - cont mucinex and inhaled medications # Acute hyperkalemia - resolved - potassium 4.8 - HD per nephrology # ESRD 2/2 polycystic kidney disease- cont HD per nephrology # Immunodeficiency - receives IVIG # permanent Atrial fibrillation - cont amiodarone # severe protein calorie malnutrition - BMI 17 - secondary to chronic medical illness - cont encouraging PO - nourishments with meals # proph - refusing lovenox #diet - regular # dispo- > 2 MN as presenting with sepsis - requiring IV antibiotics and care I have discussed the case with ID - we will decrease PO vanco dosing to 125 QID PO Subjective: denies abd pain Objective: Vital Signs Temp Pulse Resp BP Pulse Ox 36.4 C 76 16 125/68 H 95 06/19/16 08:00 06/19/16 08:00 06/19/16 08:00 06/19/16 08:00 06/19/16 08:00 Microbiology 06/17/16 00:55 - Final Sputum, Expectorated Laboratory Results 06/18/16 04:18 06/19/16 05:01 06/18/16 06/19/16 06/20/16 05:59 05:59 05:59 Intake Total 700 1150 Output Total 1500 Balance -800 1150 PT 13.6 SEC (12.0-15.0) 06/16/16 13:35 INR 1.05 (0.83-1.16) 06/16/16 13:35 - Physical Exam Constitutional: chronically ill appearing, cachectic Eyes: anicteric sclera Ears, Nose, Mouth, Throat: moist mucous membranes Cardiovascular: regular rate and rhythym Respiratory: no respiratory distress Gastrointestinal: normoactive bowel sounds Genitourinary: no bladder fullness Skin: warm, normal color Musculoskeletal: No asymmetric calves Neurologic: AAOx3 Psychiatric: interacting appropriately, not anxious Lymph, Heme, Immunologic: no cervical LAD ICD10 Worksheet Patient Problems: Problems Problem Status Onset C. difficile diarrhea Acute ~06/18/16 Chronic Disease Mgmt/Transitional Care Acute Pneumonia Acute Anemia Acute CHF (congestive heart failure) Acute Chronic Disease Mgmt/Transitional Care Acute Chronic pneumonia Acute Chronic renal failure Acute ESBL (extended spectrum beta-lactamase) producing bacteria infection Acute Extended spectrum beta lactamase (ESBL) resistance Acute 02/15/16 Fever Acute History of pneumonia Acute Hypotension Acute Hypoxemia Acute Hypoxia Acute Leukocytosis Acute Lung infiltrate Acute Mitral valve replaced Acute Palliative care encounter Acute Pneumonia Acute Pneumonia Acute Pneumonia due to Pseudomonas Acute Renal failure Acute Renal transplant recipient Acute Sepsis Acute Severe sepsis Acute Severe sepsis Acute Shortness of breath Acute VRE (vancomycin-resistant Enterococci) Acute 01/11/16 Weakness Acute
[2016-06-19] MEDS: BUDESONIDE 0.25MG/2ML DEYVIAL (5/POUCH) IH SCH ×2 (10:52→20:42)
[2016-06-19] MEDS: Mometasone/Formoterol [Dulera 200 Mcg/5 Mcg Inhaler] 1 PUFFS IH SCH ×2 (10:56→20:49)
--- NOTE | 2016-06-19 11:10 | SOAPPROG ---
SOAP Progress Note Assessment/Plan: Assessment: 1. ESRD. HD today per MW schedule. 2. Pneumonia. Recurrent issue with b/g bronchiectasis. Continue abx. Does not appear volume overloaded. 3. C. Difficile colitis. Continue po vancomycin QID. Diarrhea minimal today. Plan: 06/19/16 11:08 06/19/16 11:09 Subjective: Breathing a little bit off. Some cough, minimal phlegm, no fevers. Diarrhea minimal. Objective: Vital Signs Temp Pulse Resp BP Pulse Ox 36.4 C 63 26 H 125/68 H 96 06/19/16 08:00 06/19/16 10:53 06/19/16 10:53 06/19/16 08:00 06/19/16 10:53 Microbiology 06/17/16 00:55 - Final Sputum, Expectorated Laboratory Results 06/18/16 04:18 06/19/16 05:01 06/18/16 06/19/16 06/20/16 05:59 05:59 05:59 Intake Total 700 1150 Output Total 1500 Balance -800 1150 PT 13.6 SEC (12.0-15.0) 06/16/16 13:35 INR 1.05 (0.83-1.16) 06/16/16 13:35 Comfortable wm in chair RRR, no m/g/r Crackles 1/2 up on R, 2/3 up on left Abdom mildly distended, nontender Tr LE pitting edema ICD10 Worksheet Patient Problems: Problems Problem Status Onset C. difficile diarrhea Acute ~06/18/16 Chronic Disease Mgmt/Transitional Care Acute Pneumonia Acute Mitral valve replaced Acute Extended spectrum beta lactamase (ESBL) resistance Acute 02/15/16 Renal transplant recipient Acute Chronic renal failure Acute CHF (congestive heart failure) Acute Anemia Acute Hypoxemia Acute Renal failure Acute Shortness of breath Acute Lung infiltrate Acute Hypotension Acute Severe sepsis Acute Pneumonia due to Pseudomonas Acute Hypoxia Acute Sepsis Acute Chronic Disease Mgmt/Transitional Care Acute Fever Acute History of pneumonia Acute VRE (vancomycin-resistant Enterococci) Acute 01/11/16 Palliative care encounter Acute Weakness Acute Chronic pneumonia Acute ESBL (extended spectrum beta-lactamase) producing bacteria infection Acute Leukocytosis Acute Pneumonia Acute Severe sepsis Acute Pneumonia Acute
[2016-06-19] MEDS: guaiFENesin 600 MG TAB.ER PO SCH ×2 (17:12→21:10)
[2016-06-19] MEDS: hydrOXYzine HCL 25 MG TAB PO SCH ×2 (17:12→21:11)
[2016-06-19] MEDS: predniSONE 5 MG TAB PO SCH (17:12)
[2016-06-19] MEDS: CALCIUM ACETATE 667 MG CAP PO SCH ×3 (17:13→21:10)
[2016-06-19] MEDS: AMIODARONE HCL 200 MG TAB PO SCH ×2 (17:13→21:10)
[2016-06-19] MEDS: CARVEDILOL 6.25 MG TAB PO SCH ×2 (17:14→21:10)
[2016-06-19] MEDS: MEROPENEM 500 MG in NS 100 ML IV SCH ×3 (17:15→21:11)
[2016-06-19 17:47] LABS: HEMOGLOBIN 9.5 g/dL (13.7-17.5); MEAN CELL HEMOGLOBIN 31.8 pg (27.9-34.1); MEAN CELL HEMOGLOBIN CONCENTR. 30.6 g/dL (32.4-36.7); MEAN CELL VOLUME 103.7 fL (81.5-99.8); RED BLOOD CELL COUNT 2.99 10^6/uL (4.40-6.38); RED CELL DISTRIBUTION WIDTH 14.8 % (11.5-15.2)
[2016-06-19 18:15] LABS: ANION GAP 13 mEq/L (8-16); CALCIUM 9.1 mg/dL (8.5-10.4); CARBON DIOXIDE 25 mEq/l (22-31); CHLORIDE 95 mEq/L (97-110); CREATININE 6.4 mg/dL (0.7-1.3); GLOMERULAR FILTRATION RATE 9; GLUCOSE 113 mg/dL (70-100); POTASSIUM 4.8 mEq/L (3.5-5.2); SODIUM 133 mEq/L (134-144)
[2016-06-19] MEDS ORDERED: HEPARIN 50,000 UNIT/10 ML VIAL ONE (21:35)
[2016-06-20] MEDS: VANCOMYCIN 125 MG/2.5 ML UDL PO SCH ×4 (04:53→20:48)
[2016-06-20] MEDS: HEPARIN 5,000 UNIT/0.5 ML SYR SC SCH ×3 (04:54→20:50)
[2016-06-20 05:07] LABS: HEMATOCRIT 31.4 % (40.0-51.0); HEMOGLOBIN 9.6 g/dL (13.7-17.5); MEAN CELL HEMOGLOBIN 31.6 pg (27.9-34.1); MEAN CELL HEMOGLOBIN CONCENTR. 30.6 g/dL (32.4-36.7); MEAN CELL VOLUME 103.3 fL (81.5-99.8); RED BLOOD CELL COUNT 3.04 10^6/uL (4.40-6.38); RED CELL DISTRIBUTION WIDTH 14.7 % (11.5-15.2)
[2016-06-20 05:44] LABS: ANION GAP 9 mEq/L (8-16); CARBON DIOXIDE 26 mEq/l (22-31); CHLORIDE 99 mEq/L (97-110); CREATININE 3.4 mg/dL (0.7-1.3); GLOMERULAR FILTRATION RATE 18; GLUCOSE 84 mg/dL (70-100); POTASSIUM 4.9 mEq/L (3.5-5.2); SODIUM 134 mEq/L (134-144)
[2016-06-20] MEDS: IPRATROPIUM/ALBUTEROL 3 ML DEYVIAL IH SCH ×4 (06:05→22:01)
[2016-06-20] MEDS: CALCIUM ACETATE 667 MG CAP PO SCH ×3 (08:52→18:00)
[2016-06-20] MEDS: hydrOXYzine HCL 25 MG TAB PO SCH ×2 (08:53→20:48)
[2016-06-20] MEDS: AMIODARONE HCL 200 MG TAB PO SCH ×2 (08:53→20:48)
[2016-06-20] MEDS: CARVEDILOL 6.25 MG TAB PO SCH ×2 (08:53→18:00)
[2016-06-20] MEDS: predniSONE 5 MG TAB PO SCH (08:53)
[2016-06-20] MEDS: guaiFENesin 600 MG TAB.ER PO SCH ×2 (08:53→20:48)
[2016-06-20] MEDS: BUDESONIDE 0.25MG/2ML DEYVIAL (5/POUCH) IH SCH ×2 (11:05→22:01)
--- NOTE | 2016-06-20 11:31 | PCMIDPN ---
Assessment/Plan: 1. Right upper lobe aspiration pneumonia in immunocompromised patient with underlying lung disease (bronchiectasis): At this point in time, we unfortunately cannot transition him over to a quinolone in the setting of concomitant amiodarone use. The patient told me that he was started on amiodarone 8 months ago at the [facility] while he was being treated for rejection--he told me that he was told no other agent besides amiodarone could be used in the setting of the other anti-rejection drugs. However, he is wondering now that he is no longer on these potent medications, if he could be changed to something else for his atrial fibrillation. I have discussed this with Dr. Corrales--suspect cardiology will need to be involved if we go down this path. Option 2. For treatment includes daily meropenem until Friday, which would be 10 days. The patient would like to be home for [facility]. Suspect we could get him home Friday, and he could return here daily for meropenem. 2. C diff colitis: Mild in nature. Continue p.o. vancomycin. White blood cell count has gone down significantly 3. History of leukocytosis: Secondary to 2. Resolving. 4. Mild oropharyngeal candidiasis: Start clotrimazole troches his for 14 days. Over 35 minutes was spent with this patient today, reading his chart, talking with the patient and other providers. Subjective: Chart reviewed. Patient was admitted for a new right upper lobe pneumonia. Cultures are growing Pseudomonas. Talked to the patient at length today regarding possible plan. Please see discussion below. He still has diarrhea, but feels it is getting slightly better. No abdominal pain, nausea or vomiting. No dysphagia or odynophagia. Objective: Meropenem 1 g IV daily day 4. (Antibiotics day 5) P.o. vancomycin 125 four times daily day 2 Afebrile 95% on 2 L Vital Signs Temp Pulse Resp BP Pulse Ox 36.5 C 68 18 108/56 L 95 06/20/16 09:14 06/20/16 11:09 06/20/16 11:09 06/20/16 09:14 06/20/16 09:14 Microbiology 06/17/16 00:55 - Final Sputum, Expectorated Sputum Culture - Final Erin Albicans Pseudomonas Aeruginosa Laboratory Results 06/20/16 04:36 06/20/16 04:36 06/19/16 06/20/16 06/21/16 05:59 05:59 05:59 Intake Total 1150 3000 Balance 1150 3000 C difficile toxin positive Sputum with 3+ Erin albicans and 1+ sensitive Pseudomonas aeruginosa. No ESBL E coli isolated Blood cultures negative - Physical Exam General Appearance: other (Chronically ill appearing. No apparent distress.) EENT: thrush Respiratory: crackles (Especially left lower lung base) Abdomen: non-tender, soft, No distended Skin: No rash ICD10 Worksheet Patient Problems: Problems Problem Status Onset C. difficile diarrhea Acute ~06/18/16 Chronic Disease Mgmt/Transitional Care Acute Pneumonia Acute Anemia Acute CHF (congestive heart failure) Acute Chronic Disease Mgmt/Transitional Care Acute Chronic pneumonia Acute Chronic renal failure Acute ESBL (extended spectrum beta-lactamase) producing bacteria infection Acute Extended spectrum beta lactamase (ESBL) resistance Acute 02/15/16 Fever Acute History of pneumonia Acute Hypotension Acute Hypoxemia Acute Hypoxia Acute Leukocytosis Acute Lung infiltrate Acute Mitral valve replaced Acute Palliative care encounter Acute Pneumonia Acute Pneumonia Acute Pneumonia due to Pseudomonas Acute Renal failure Acute Renal transplant recipient Acute Sepsis Acute Severe sepsis Acute Severe sepsis Acute Shortness of breath Acute VRE (vancomycin-resistant Enterococci) Acute 01/11/16 Weakness Acute
[2016-06-20] MEDS: Mometasone/Formoterol [Dulera 200 Mcg/5 Mcg Inhaler] 1 PUFFS IH SCH ×2 (11:38→22:40)
--- NOTE | 2016-06-20 12:15 | SOAPPROG ---
SOAP Progress Note Assessment/Plan: Assessment:Plan: ESRD-plan for Hd tomorrow -outpatient schedule MWF at [facility] Access-stable CV-in NSR ID-on abx for pneumonia C diff-on contact precautions 06/20/16 12:13 Subjective: cough, SOB Objective: Vital Signs Temp Pulse Resp BP Pulse Ox 36.5 C 68 18 108/56 L 95 06/20/16 09:14 06/20/16 11:09 06/20/16 11:09 06/20/16 09:14 06/20/16 09:14 Microbiology 06/17/16 00:55 - Final Sputum, Expectorated Sputum Culture - Final Erin Albicans Pseudomonas Aeruginosa Laboratory Results 06/20/16 04:36 06/20/16 04:36 06/19/16 06/20/16 06/21/16 05:59 05:59 05:59 Intake Total 1150 3000 Balance 1150 3000 PT 13.6 SEC (12.0-15.0) 06/16/16 13:35 INR 1.05 (0.83-1.16) 06/16/16 13:35 Physical Exam - Physical Exam General Appearance: alert, no apparent distress, thin EENT: normal ENT inspection Neck: normal inspection Respiratory: decreased breath sounds, crackles, rhonchi (throughout), No respiratory distress Cardiac/Chest: regular rate, rhythm, systolic murmur Abdomen: normal bowel sounds, non-tender Extremities: swelling (trace) ICD10 Worksheet Patient Problems: Problems Problem Status Onset C. difficile diarrhea Acute ~06/18/16 Chronic Disease Mgmt/Transitional Care Acute Pneumonia Acute Anemia Acute CHF (congestive heart failure) Acute Chronic Disease Mgmt/Transitional Care Acute Chronic pneumonia Acute Chronic renal failure Acute ESBL (extended spectrum beta-lactamase) producing bacteria infection Acute Extended spectrum beta lactamase (ESBL) resistance Acute 02/15/16 Fever Acute History of pneumonia Acute Hypotension Acute Hypoxemia Acute Hypoxia Acute Leukocytosis Acute Lung infiltrate Acute Mitral valve replaced Acute Palliative care encounter Acute Pneumonia Acute Pneumonia Acute Pneumonia due to Pseudomonas Acute Renal failure Acute Renal transplant recipient Acute Sepsis Acute Severe sepsis Acute Severe sepsis Acute Shortness of breath Acute VRE (vancomycin-resistant Enterococci) Acute 01/11/16 Weakness Acute
--- NOTE | 2016-06-20 12:45 | HOSPPROG ---
Hospitalist Progress Note Assessment/Plan: DIAGNOSES: # Sepsis - Fevers/leukocytosis- 2/2 Cdiff and pneumonia- fevers resolved since admit # Acute Community Aquired pneumonia # Acute C.diff colitis - started PO vancomycin # Chronic hypoxic respiratory failure 2/2 bronchiectasis - oxygen saturations 95 % on 1L # Acute hyperkalemia / ESRD 2/2 polycystic kidney disease - HD per nephrology # Immunodeficiency - receives IVIG # permanent Atrial fibrillation - cont amiodarone # severe protein calorie malnutrition - BMI 17 - secondary to chronic medical illness - cont encouraging PO, nourishments with meals # proph - refusing lovenox # diet - renal PLANS: -I discussed the patient's progress and care plan in detail today with Dr. Isela Aguayo -Continue current IV antibiotics to cover Pseudomonas -Continue treatment for C diff colitis -continue routine dialysis -nutrition supple SUBJECTIVE: At this point the patient does not feel any pain or discomfort, still not back to baseline with dyspnea but better than when here in was admitted Eating well Still with loose stools but improving OBJECTIVE Vitals reviewed: Stable without fever Exam: alert oriented skin warm dry color ok resps not labored lungs clear BSs heart regular abd soft nondistended nontender, bowel sounds present limbs warm, no edema iv site ok Objective: Vital Signs Temp Pulse Resp BP Pulse Ox 36.5 C 68 18 108/56 L 95 06/20/16 09:14 06/20/16 11:09 06/20/16 11:09 06/20/16 09:14 06/20/16 09:14 Microbiology 06/17/16 00:55 - Final Sputum, Expectorated Sputum Culture - Final Erin Albicans Pseudomonas Aeruginosa Laboratory Results 06/20/16 04:36 06/20/16 04:36 06/19/16 06/20/16 06/21/16 06:59 06:59 06:59 Intake Total 1150 3000 Balance 1150 3000 PT 13.6 SEC (12.0-15.0) 06/16/16 13:35 INR 1.05 (0.83-1.16) 06/16/16 13:35 ICD10 Worksheet Patient Problems: Problems Problem Status Onset C. difficile diarrhea Acute ~06/18/16 Chronic Disease Mgmt/Transitional Care Acute Pneumonia Acute Anemia Acute CHF (congestive heart failure) Acute Chronic Disease Mgmt/Transitional Care Acute Chronic pneumonia Acute Chronic renal failure Acute ESBL (extended spectrum beta-lactamase) producing bacteria infection Acute Extended spectrum beta lactamase (ESBL) resistance Acute 02/15/16 Fever Acute History of pneumonia Acute Hypotension Acute Hypoxemia Acute Hypoxia Acute Leukocytosis Acute Lung infiltrate Acute Mitral valve replaced Acute Palliative care encounter Acute Pneumonia Acute Pneumonia Acute Pneumonia due to Pseudomonas Acute Renal failure Acute Renal transplant recipient Acute Sepsis Acute Severe sepsis Acute Severe sepsis Acute Shortness of breath Acute VRE (vancomycin-resistant Enterococci) Acute 01/11/16 Weakness Acute
[2016-06-20] MEDS: CLOTRIMAZOLE 10 MG TROCHE PO SCH ×3 (14:42→20:48)
[2016-06-20] MEDS: MEROPENEM 500 MG in NS 100 ML IV SCH (19:28)
[2016-06-21] MEDS: HEPARIN 5,000 UNIT/0.5 ML SYR SC SCH ×3 (05:08→21:05)
[2016-06-21] MEDS: VANCOMYCIN 125 MG/2.5 ML UDL PO SCH ×4 (05:08→22:20)
[2016-06-21] MEDS: CLOTRIMAZOLE 10 MG TROCHE PO SCH ×6 (05:08→21:07)
[2016-06-21] MEDS: IPRATROPIUM/ALBUTEROL 3 ML DEYVIAL IH SCH ×4 (05:59→22:06)
[2016-06-21] MEDS: predniSONE 5 MG TAB PO SCH (10:14)
[2016-06-21] MEDS: CALCIUM ACETATE 667 MG CAP PO SCH ×3 (10:14→18:15)
[2016-06-21] MEDS: AMIODARONE HCL 200 MG TAB PO SCH ×2 (10:14→20:41)
[2016-06-21] MEDS: CARVEDILOL 6.25 MG TAB PO SCH ×2 (10:15→18:16)
[2016-06-21] MEDS: guaiFENesin 600 MG TAB.ER PO SCH ×2 (10:15→20:41)
[2016-06-21] MEDS: hydrOXYzine HCL 25 MG TAB PO SCH ×2 (10:16→22:20)
[2016-06-21] MEDS: BUDESONIDE 0.25MG/2ML DEYVIAL (5/POUCH) IH SCH ×2 (10:44→22:07)
[2016-06-21] MEDS: Mometasone/Formoterol [Dulera 200 Mcg/5 Mcg Inhaler] 1 PUFFS IH SCH ×2 (10:49→22:11)
--- NOTE | 2016-06-21 10:58 | SOAPPROG ---
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 He is using IJ Catheter with Qb 350, 3K/2.5 Ca bath, goal UF 2kg. Resting comfortably, working on laptop. Reports diarrhea better. Breathing improved but not back to baseline. He is wanting to have regular diet and I explained why he needs to stay on low K diet. Objective: Vital Signs Temp Pulse Resp BP Pulse Ox 36.5 C 70 20 134/72 H 94 06/21/16 10:07 06/21/16 10:07 06/21/16 10:07 06/21/16 10:07 06/21/16 10:07 Microbiology 06/17/16 00:55 - Final Sputum, Expectorated Sputum Culture - Final Erin Albicans Pseudomonas Aeruginosa Laboratory Results 06/20/16 04:36 06/20/16 04:36 06/20/16 06/21/16 06/22/16 05:59 05:59 05:59 Intake Total 3000 500 440 Balance 3000 500 440 PT 13.6 SEC (12.0-15.0) 06/16/16 13:35 INR 1.05 (0.83-1.16) 06/16/16 13:35 Physical Exam - Physical Exam General Appearance: no apparent distress, other (chronically ill, sitting in bed comfortably, on O2 by NC) EENT: other (mmm) Neck: supple Respiratory: lungs clear Cardiac/Chest: regular rate, rhythm, other (no rub) Abdomen: non-tender, soft Skin: warm/dry Extremities: other (trace LE edema, AVF with faint bruit, I can't palpate thrill ) Neuro/Psych: alert, oriented x 3 ICD10 Worksheet Patient Problems: Problems Problem Status Onset C. difficile diarrhea Acute ~06/18/16 Chronic Disease Mgmt/Transitional Care Acute Pneumonia Acute Anemia Acute CHF (congestive heart failure) Acute Chronic Disease Mgmt/Transitional Care Acute Chronic pneumonia Acute Chronic renal failure Acute ESBL (extended spectrum beta-lactamase) producing bacteria infection Acute Extended spectrum beta lactamase (ESBL) resistance Acute 02/15/16 Fever Acute History of pneumonia Acute Hypotension Acute Hypoxemia Acute Hypoxia Acute Leukocytosis Acute Lung infiltrate Acute Mitral valve replaced Acute Palliative care encounter Acute Pneumonia Acute Pneumonia Acute Pneumonia due to Pseudomonas Acute Renal failure Acute Renal transplant recipient Acute Sepsis Acute Severe sepsis Acute Severe sepsis Acute Shortness of breath Acute VRE (vancomycin-resistant Enterococci) Acute 01/11/16 Weakness Acute
--- NOTE | 2016-06-21 11:16 | PDIAF ---
- Diagnosis Diagnosis: Pneumonia Code Status: Full Code - Medication Management Discharge Medications: Medications to Continue on Transfer Levalbuterol 1.25 mg [Xopenex 1.25MG Neb (*)] 1 vial IH BID PRN 11/02/12 [Last Taken 06/16/16 09:00] Zafirlukast [Accolate 20 MG] 20 mg PO BID 11/02/12 [Last Taken 06/16/16 09:00] predniSONE 5 mg PO DAILY 05/22/15 [Last Taken 06/16/16 09:00] Tiotropium Inhaler [Spiriva Handihaler] 18 mcg IH HS 11/10/15 [Last Taken 20:00] Calcium Acetate [Phoslo (*)] 1,334 mg PO TIDMEAL #90 cap 12/08/15 [Last Taken 18:00] Budesonide [Pulmicort 0.25MG/2Ml Neb (*)] 0.25 mg IH BID 12/12/15 [Last Taken 20:00] Folic Acid/Vit B Complex and C [Dialyvite Tablet] 1 tab PO HS 04/13/16 [Last Taken 06/15/16 20:00] Hypertonic Saline 7% 1 inh IH BID PRN 04/13/16 [Last Taken 04/09/16] Levalbuterol Inhaler [Xopenex Hfa Inhaler (*)] 2 puffs IH BID 04/13/16 [Last Taken 06/16/16 09:00] Mometasone/Formoterol [Dulera 200 Mcg/5 Mcg Inhaler] 1 puffs IH BID 04/13/16 [ Last Taken 06/16/16 09:00] Sodium Polystyrene Sulf [Kionex SPS Powder (*)] 10 gm PO DAILY PRN 04/13/16 [ Last Taken Unknown] hydrOXYzine HCL [hydrOXYzine HCL (RX)] 25 mg PO BID 04/13/16 [Last Taken 09:00] Amiodarone HCl [Pacerone (*)] 200 mg PO BID #0 tab 04/25/16 [Last Taken 09:00] Carvedilol [Coreg (*)] 6.25 mg PO BIDMEAL #0 tab 02/16/17 [Last Taken 06/16/16 09:00] guaiFENesin [Mucinex 600 MG (*)] 600 mg PO BID #0 tab.er 04/25/16 [Last Taken 09:00] traZODone [traZODONE 50MG (*)] 50 mg PO HS PRN 06/16/16 [Last Taken 06/15/16 21: 00] Longterm Antibiotics: Meropenem 500 mg IV daily (Friday will need to be after dialysis in pm) Longterm Antibiotic Stop Date: 06/25/16 (Antibiotic will be given through peripheral IV, which will need to be discontinued on Friday the ) Discharge Medications: Refer to the Discharge Home Medication list for PRN reason. - Follow Up Care Current Providers and Referrals: Patient,NotPresent [Unknown] - As per Instructions
--- NOTE | 2016-06-21 11:20 | PCMIDPN ---
Assessment/Plan: 1. Right upper lobe aspiration pneumonia in immunocompromised patient with underlying lung disease (bronchiectasis): As outlined yesterday, the patient cannot be transitioned to an oral quinolone in the setting of concomitant amiodarone. Even if amiodarone were to be discontinued, because of its long half-life he still is at risk of its QTC prolonging effects when coupled with a fluoroquinolone. Therefore, I talked with the patient at length regarding plan. He will get a dose of meropenem tomorrow before he is discharged, and then will receive meropenem 500 mg IV daily at our infusion center on Friday, Friday, and Friday to complete a 10 day course. He will need his dose Friday after dialysis. I called [facility]( [phone]) and spoke to 1 of the nurses. Unfortunately, they do not have meropenem in stock, so patient will need to come here on Friday versus having it done there after dialysis. 2. C diff colitis: Mild in nature. Continue p.o. vancomycin times 14 days. White blood cell count has gone down significantly. 3. History of leukocytosis: Secondary to 2. Resolving. 4. Mild oropharyngeal candidiasis: Continue clotrimazole troches for 14 days. 06/21/16 11:16 Subjective: Patient feels much better. No shortness of breath. Diarrhea is slowly getting better. No abdominal pain, nausea or vomiting. Not eating a whole lot. Objective: Meropenem 500 mg IV daily day 5 (antibiotics day 6) stop date of antibiotics FridayJune 25 Vancomycin 125 mg p.o. 4 times daily day 3. Out of 14 Afebrile 94% on 2 L Vital Signs Temp Pulse Resp BP Pulse Ox 36.5 C 78 18 134/72 H 95 06/21/16 10:07 06/21/16 10:45 06/21/16 10:45 06/21/16 10:07 06/21/16 10:45 Microbiology 06/17/16 00:55 - Final Sputum, Expectorated Sputum Culture - Final Erin Albicans Pseudomonas Aeruginosa Laboratory Results 06/20/16 04:36 06/20/16 04:36 06/20/16 06/21/16 06/22/16 05:59 05:59 05:59 Intake Total 3000 500 440 Balance 3000 500 440 Mary 9th blood cultures x2 no growth Sputum culture 3+ Erin albicans 1+ Pseudomonas aeruginosa - Physical Exam General Appearance: alert, no apparent distress EENT: other (Very minimal thrush right buccal mucosa) Respiratory: crackles Abdomen: distended ICD10 Worksheet Patient Problems: Problems Problem Status Onset C. difficile diarrhea Acute ~06/18/16 Chronic Disease Mgmt/Transitional Care Acute Pneumonia Acute Anemia Acute CHF (congestive heart failure) Acute Chronic Disease Mgmt/Transitional Care Acute Chronic pneumonia Acute Chronic renal failure Acute ESBL (extended spectrum beta-lactamase) producing bacteria infection Acute Extended spectrum beta lactamase (ESBL) resistance Acute 02/15/16 Fever Acute History of pneumonia Acute Hypotension Acute Hypoxemia Acute Hypoxia Acute Leukocytosis Acute Lung infiltrate Acute Mitral valve replaced Acute Palliative care encounter Acute Pneumonia Acute Pneumonia Acute Pneumonia due to Pseudomonas Acute Renal failure Acute Renal transplant recipient Acute Sepsis Acute Severe sepsis Acute Severe sepsis Acute Shortness of breath Acute VRE (vancomycin-resistant Enterococci) Acute 01/11/16 Weakness Acute
--- NOTE | 2016-06-21 13:56 | HOSPPROG ---
Hospitalist Progress Note Assessment/Plan: DIAGNOSES: # Sepsis - Fevers/leukocytosis- 2/2 Cdiff and pneumonia- fevers resolved since admit # Acute Community Aquired pneumonia # Acute C.diff colitis - started PO vancomycin # Orophayngeal thrush # Chronic hypoxic respiratory failure 2/2 pneumonia and bronchiectasis - oxygen saturations 95% on 1L # Acute hyperkalemia / ESRD 2/2 polycystic kidney disease - HD per nephrology # Chronic Immunodeficiency - receives IVIG as outpt # permanent Atrial fibrillation; rate controlled and stable - cont amiodarone # severe protein calorie malnutrition - BMI 17 - secondary to chronic medical illness - cont encouraging PO, nourishments with meals # proph - refusing lovenox # diet - renal PLANS: -I discussed the patient's progress and care plan in detail today with Dr. Isela Aguayo -Continue current IV antibiotics to cover Pseudomonas for total 10 days; will plan on possible DC tomorrow and finish at outpt infusion center -Continue treatment for C diff colitis total 14 days -treatment for thrush total 14 days -continue routine dialysis -nutrition supple SUBJECTIVE: At this point the patient does not feel any pain or discomfort, still not back to baseline with dyspnea but better than when here in was admitted Eating well Still with loose stools but improving OBJECTIVE Vitals reviewed: Stable without fever Exam: alert oriented skin warm dry color ok resps not labored lungs clear BSs heart regular abd soft nondistended nontender, bowel sounds present limbs warm, no edema iv site ok Objective: Vital Signs Temp Pulse Resp BP Pulse Ox 36.5 C 78 18 134/72 H 95 06/21/16 10:07 06/21/16 10:45 06/21/16 10:45 06/21/16 10:07 06/21/16 10:45 Laboratory Results 06/20/16 04:36 06/20/16 04:36 06/20/16 06/21/16 06/22/16 06:59 06:59 06:59 Intake Total 3000 500 440 Balance 3000 500 440 PT 13.6 SEC (12.0-15.0) 06/16/16 13:35 INR 1.05 (0.83-1.16) 06/16/16 13:35 ICD10 Worksheet Patient Problems: Problems Problem Status Onset C. difficile diarrhea Acute ~06/18/16 Chronic Disease Mgmt/Transitional Care Acute Pneumonia Acute Anemia Acute CHF (congestive heart failure) Acute Chronic Disease Mgmt/Transitional Care Acute Chronic pneumonia Acute Chronic renal failure Acute ESBL (extended spectrum beta-lactamase) producing bacteria infection Acute Extended spectrum beta lactamase (ESBL) resistance Acute 02/15/16 Fever Acute History of pneumonia Acute Hypotension Acute Hypoxemia Acute Hypoxia Acute Leukocytosis Acute Lung infiltrate Acute Mitral valve replaced Acute Palliative care encounter Acute Pneumonia Acute Pneumonia Acute Pneumonia due to Pseudomonas Acute Renal failure Acute Renal transplant recipient Acute Sepsis Acute Severe sepsis Acute Severe sepsis Acute Shortness of breath Acute VRE (vancomycin-resistant Enterococci) Acute 01/11/16 Weakness Acute
[2016-06-21] MEDS ORDERED: HEPARIN 50,000 UNIT/10 ML VIAL ONE (18:21)
[2016-06-21] MEDS: MEROPENEM 500 MG in NS 100 ML IV SCH (20:42)
[2016-06-22] MEDS: IPRATROPIUM/ALBUTEROL 3 ML DEYVIAL IH SCH ×3 (05:31→16:47)
[2016-06-22 05:44] LABS: ALBUMIN 2.8 g/dL (3.5-5.0); ANION GAP 9 mEq/L (8-16); CALCIUM 8.9 mg/dL (8.5-10.4); CARBON DIOXIDE 26 mEq/l (22-31); CHLORIDE 98 mEq/L (97-110); CREATININE 3.2 mg/dL (0.7-1.3); GLOMERULAR FILTRATION RATE 20; GLUCOSE 76 mg/dL (70-100); POTASSIUM 5.4 mEq/L (3.5-5.2); SODIUM 133 mEq/L (134-144)
[2016-06-22] MEDS: VANCOMYCIN 125 MG/2.5 ML UDL PO SCH ×3 (05:46→16:47)
[2016-06-22] MEDS: CLOTRIMAZOLE 10 MG TROCHE PO SCH ×4 (05:46→17:23)
[2016-06-22] MEDS: HEPARIN 5,000 UNIT/0.5 ML SYR SC SCH ×2 (05:48→13:23)
[2016-06-22] MEDS: hydrOXYzine HCL 25 MG TAB PO SCH (08:07)
[2016-06-22] MEDS: CARVEDILOL 6.25 MG TAB PO SCH ×2 (08:07→17:23)
[2016-06-22] MEDS: AMIODARONE HCL 200 MG TAB PO SCH (08:07)
[2016-06-22] MEDS: predniSONE 5 MG TAB PO SCH (08:08)
[2016-06-22] MEDS: guaiFENesin 600 MG TAB.ER PO SCH (08:08)
[2016-06-22] MEDS: CALCIUM ACETATE 667 MG CAP PO SCH ×3 (08:09→17:25)
[2016-06-22] MEDS: BUDESONIDE 0.25MG/2ML DEYVIAL (5/POUCH) IH SCH (11:25)
[2016-06-22] MEDS: Mometasone/Formoterol [Dulera 200 Mcg/5 Mcg Inhaler] 1 PUFFS IH SCH (11:26)
--- NOTE | 2016-06-22 13:09 | PDDCSUM ---
Discharge Summary Discharge Summary: DISCHARGE DIAGNOSES: # Sepsis - Fevers/leukocytosis- 2/2 Cdiff and pneumonia- # Acute Community Aquired pneumonia # Acute C.diff colitis - started PO vancomycin # Orophayngeal thrush # Chronic hypoxic respiratory failure 2/2 pneumonia and bronchiectasis # Acute hyperkalemia / ESRD 2/2 polycystic kidney disease # Chronic Immunodeficiency # permanent Atrial fibrillation; rate controlled and stable # severe protein calorie malnutrition - BMI 17 CONSULTANTS: neprhology infectious disease PROCEDURES: hemodialysis HOSPITAL COURSE SUMMARY: Mr Kaye came in with acute sepsis due to peumonia, community aquired, with hypoxemic resp failure. He was identified as having pseudomonas, which is recurrent for him. He has been treated here with meropenam and has responded quite well with resolution of sepsis and resp failure. He will need 3 more days of IV buck after today's dose. He has this arranged at our outpt infusion center. He did develop C diff colitis with diarrhea while here, which has responded well to po vanco, with no complications. MEDICATION CHANGES: addition of meropenam total 10 dys tx addition of po vancomycin qid 125 mg total 2 weeks tx FOLLOW-UP PLAN: dialysis as usual at his center IV meropenam at outpt infusion center daily for 3 days starting tomorrow. f/u next week with Dr Tobar at [place] Greater than 35 minutes bedside and care coordination time today
[2016-06-22 16:23] VITALS: BP 110/63; RESP 16; TEMP 97.4
[2016-06-22] MEDS ORDERED: MEROPENEM 500 MG in NS 100 ML IV SCH (17:00)
[2016-06-22 17:01] VITALS: O2SAT 97
[2016-06-22 17:23] VITALS: PULSE 78
== END 2016-06-22 19:14 | disposition home health service (06) | DRG 871 ==
LOC: EDUNIT# → F1N 14:54
PROVIDERS: ADMIT Student in an Organized Health Care Education/Training Program; ATTEND Student in an Organized Health Care Education/Training Program
PROC: 5A1D60Z (ICD-10-PCS; principal; 2016-06-17)
DX: A41.89 Other specified sepsis (principal); J15.1 Pneumonia due to Pseudomonas; E43 Unspecified severe protein-calorie malnutrition; N18.6 End stage renal disease; A04.7 Enterocolitis due to Clostridium difficile; B37.0 Candidal stomatitis; Q61.3 Polycystic kidney, unspecified; D84.8 Other specified immunodeficiencies; J96.11 Chronic respiratory failure with hypoxia; Z68.1 Body mass index [BMI] 19.9 or less, adult; J47.9 Bronchiectasis, uncomplicated; E87.5 Hyperkalemia; I48.2 Chronic atrial fibrillation; B96.5 Pseudomonas (aeruginosa) (mallei) (pseudomallei) as the cause of diseases classified elsewhere; Z95.4 Presence of other heart-valve replacement
CPT/HCPCS: 96374; J1644; J2185; J2543; J3370; J7626

== ENCOUNTER 2016-06-25 11:49 | Emergency (ER) | payer OTHER ==
[2016-06-25 12:22] VITALS: RESP 16
[2016-06-25 12:25] VITALS: O2SAT 100
[2016-06-25] MEDS ORDERED: NS 500 ML IV ONE (12:38)
--- NOTE | 2016-06-25 12:41 | EDPHY ---
H & P Stated Complaint: hypotension at infusion center/dialysis Time Seen by Provider: 06/25/16 12:28 HPI/ROS: CHIEF COMPLAINT: Hypotension HISTORY OF PRESENT ILLNESS: The patient is a 66-year-old man with significant past medical history. He has a history of polycystic kidney disease with kidney transplant with end-stage renal failure. He also has a history of immunodeficiency on IVIG chronic respiratory failure on 2 L of oxygen, asthma, pulmonary hypertension and paroxysmal atrial fibrillation on Xarelto. He is admitted to the hospital 2 weeks ago for sepsis secondary to C diff pneumonia. He finished meropenem today and is still on oral vancomycin. She was discharged from the hospital 3 days ago. States that overall he feels well but that his blood pressures been low since he received dialysis yesterday. He states that typically they take 2 L off but because he had received IV fluids in the hospital they took 4 L off yesterday. He has felt slightly lightheaded and had a low blood pressure of 80 systolic since that time. He denies any more diarrhea or shortness of breath. He denies abdominal pain or chest pain. He thinks that he was simply over diuresed. He states that overall he does not feel ill. REVIEW OF SYSTEMS: Constitutional: denies: chills, fever, recent illness, recent injury EENTM: denies: blurred vision, double vision, nose congestion Respiratory: denies: cough, shortness of breath Cardiac: See HPI denies: chest pain, irregular heart rate, palpitations Gastrointestinal/Abdominal: denies: abdominal pain, diarrhea, nausea, vomiting, blood streaked stools Genitourinary: denies: dysuria, frequency, hematuria, pain Musculoskeletal: denies: joint pain, muscle pain Skin: denies: lesions, rash, jaundice, bruising Neurological: denies: headache, numbness, paresthesia, tingling, dizziness, weakness Hematologic/Lymphatic: denies: blood clots, easy bleeding, easy bruising Immunologic/allergic: denies: HIV/AIDS, transplant EXAM: GENERAL: Well-appearing, well-nourished and in no acute distress. HEAD: Atraumatic, normocephalic. EYES: Pupils equal round and reactive to light, extraocular movements intact, sclera anicteric, conjunctiva are normal. ENT: TMs normal, nares patent, oropharynx clear without exudates. Moist mucous membranes. NECK: Normal range of motion, supple without lymphadenopathy or JVD. LUNGS: Breath sounds clear to auscultation bilaterally and equal. No wheezes rales or rhonchi. HEART: Regular rate and rhythm without murmurs, rubs or gallops. ABDOMEN: Soft, nontender, normoactive bowel sounds. No guarding, no rebound. No masses appreciated. BACK: No CVA tenderness, no spinal tenderness, step-offs or deformities EXTREMITIES: Normal range of motion, no pitting or edema. No clubbing or cyanosis. NEUROLOGICAL: Cranial nerves II through XII grossly intact. Normal speech, normal gait. 5/5 strength, normal movement in all extremities, normal sensation PSYCH: Normal mood, normal affect. SKIN: Warm, dry, normal turgor, no visible rashes or lesions. 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, esrd - dialysis pt - Family History Significant Family History: No pertinent family hx - Social History Smoking Status: Never smoked Alcohol Use: None Drug Use: None Constitutional: Initial Vital Signs Temperature (C) 36.4 C 06/25/16 12:09 Heart Rate 58 L 06/25/16 12:09 Respiratory Rate 18 06/25/16 12:09 Blood Pressure 69/34 L 06/25/16 12:09 O2 Sat (%) 89 L 06/25/16 12:09 O2 Delivery Mode Room Air O2 (L/minute) 2 Allergies/Adverse Reactions: Iodinated Contrast Media - Oral and [Iodinated Contrast Media - IV Dye] Allergy (Severe, Verified 06/25/16 12:06) Dyspnea IODINE CONTACT DYE Allergy (Severe, Uncoded 06/12/14 16:49) Dyspnea Home Medications: Medication Instructions Recorded Levalbuterol 1.25 mg [Xopenex 1 vial IH BID PRN 11/02/12 1.25MG Neb (*)] Zafirlukast [Accolate 20 MG] 20 mg PO BID 11/02/12 predniSONE 5 mg PO DAILY 05/22/15 Tiotropium Inhaler [Spiriva 18 mcg IH HS 11/10/15 Handihaler] Calcium Acetate [Phoslo (*)] 1,334 mg PO TIDMEAL #90 cap 12/08/15 Budesonide [Pulmicort 0.25MG/2Ml 0.25 mg IH BID 12/12/15 Neb (*)] Folic Acid/Vit B Complex and C 1 tab PO HS 04/13/16 [Dialyvite Tablet] Hypertonic Saline 7% 1 inh IH BID PRN 04/13/16 Levalbuterol Inhaler [Xopenex Hfa 2 puffs IH BID 04/13/16 Inhaler (*)] Mometasone/Formoterol [Dulera 200 1 puffs IH BID 04/13/16 Mcg/5 Mcg Inhaler] Sodium Polystyrene Sulf [Kionex 10 gm PO DAILY PRN 04/13/16 SPS Powder (*)] hydrOXYzine HCL [hydrOXYzine HCL 25 mg PO BID 04/13/16 (RX)] Amiodarone HCl [Pacerone (*)] 200 mg PO BID #0 tab 04/25/16 Carvedilol [Coreg (*)] 6.25 mg PO BIDMEAL #0 tab 04/25/16 guaiFENesin [Mucinex 600 MG (*)] 600 mg PO BID #0 tab.er 04/25/16 traZODone [traZODONE 50MG (*)] 50 mg PO HS PRN 06/16/16 Ipratropium/Albuterol [Duoneb (*)] 3 ml IH QID #0 deyvial 06/22/16 Meropenem [Merrem Inj 500 mg (*)] 500 mg IV DAILY@2000 #0 vial 06/22/16 Vancomycin [Vancocin Oral Liquid] 125 mg PO QID #0 udl 06/22/16 Medical Decision Making ED Course/Re-evaluation: Patient is hypotensive but overall states he does not feel sick. He thinks that he has been over diuresed. He is requesting to have his weight measured and will likely give him a small IV fluid bolus. He is due to have dialysis again tomorrow. He has had low blood pressure since returning from dialysis yesterday. 1:40 p.m. the patient's blood pressure is currently 105/70. He received 500 cc of fluids. He is feeling much better. He refused further IV fluids. He is eager to go home. He declines further workup or testing at this time. Differential Diagnosis: Partial list of the Differential diagnosis considered include but were not limited to; dehydration, sepsis, hemorrhage and although unlikely based on the history and physical exam, I also considered allergic reaction, arrhythmia, neurogenic hypertension. I discussed these differential diagnoses and the plan with the patient as well as the usual and expected course. The patient understands that the diagnosis is provisional and that in medicine we are not always correct and that further workup is often warranted. Usual and customary warnings were given. All of the patient's questions were answered. The patient was instructed to return to the emergency department should the symptoms at all worsen or return, otherwise to followup with the physician as we discussed. - Data Points Medications Given: Discontinued Medications Sodium Chloride (Ns) 500 mls @ 0 mls/hr IV ONCE ONE PRN Reason: As Directed Stop: 06/25/16 12:39 Last Admin: 06/25/16 13:03 Dose: 500 mls Departure - Departure Disposition: Home, Routine, Self-Care Clinical Impression: Dehydration Dialysis complication Qualifiers: Encounter type: initial encounter Qualified Code(s): T82.898A - Other specified complication of vascular prosthetic devices, implants and grafts, initial encounter Condition: Fair Instructions: Dehydration (ED) Referrals: Janelle Daniel MD [Primary Care Provider] - As per Instructions
[2016-06-25 14:41] VITALS: BP 113/61; PULSE 57; TEMP 97.7
== END 2016-06-25 14:41 | disposition home or self-care (01) ==
DX: T82.898A Other specified complication of vascular prosthetic devices, implants and grafts, initial encounter (principal); J45.909 Unspecified asthma, uncomplicated; E86.0 Dehydration; Y82.8 Other medical devices associated with adverse incidents

== ENCOUNTER 2016-06-27 16:05 | Inpatient (IN) | payer OTHER ==
--- NOTE | 2016-06-27 16:18 | EDPHY ---
H & P Time Seen by Provider: 06/27/16 16:15 HPI/ROS: CHIEF COMPLAINT: Increasing weakness HISTORY OF PRESENT ILLNESS: This 66-year-old man was discharged on June 22 after being hospitalized for community-acquired pneumonia and Pseudomonas treated with meropenem. He also developed Clostridium difficile colitis treated with oral vancomycin. He presents today with generalized weakness being unable to walk and unsteady on his feet and feeling more shortness of breath. Symptoms are severe and prevented him from performing his daily activities at home. He presents with a friend who brought him to the emergency department. Not associated with cough or fever or chest pain or headache or vomiting or diarrhea. REVIEW OF SYSTEMS: Eye: no change in vision ENT: no sore throat Cardiac: no chest pain or syncope Pulmonary: Not coughing, mild shortness of breath since previous hospitalization, unchanged Abdomen: no vomiting, diarrhea, abdominal pain Musculoskeletal: no back pain Skin: no rash Neuro: no headache Constitutional: no fever : no urinary symptoms A comprehensive 10 point review of systems is otherwise negative aside from elements mentioned in the history of present illness. PAST MEDICAL HISTORY: History and physical dated 06/16/2026 and discharge summary dated 06/22/2016 personally reviewed. Includes bronchiectasis with recurrent pseudomonal pneumonia, hemodialysis, chronic respiratory failure with oxygen requirement at baseline, asthma pulmonary hypertension, West Nile virus with encephalitis, paroxysmal atrial fibrillation, mitral valve replacement, renal transplant. Social history: Nonsmoker General Appearance: Alert and conversant, cooperative. Eyes: No scleral icterus. ENT, Mouth: Dry mucous membranes Respiratory: Decreased breath sounds bilaterally Cardiovascular: Irregular rate and rhythm with 4/6 systolic murmur Gastrointestinal: Abdomen is soft and non tender. Neurological: Alert and oriented x3. Normally conversant. Generally weak but moves all 4 extremities. Skin: Warm and dry, no rashes. Musculoskeletal: No peripheral edema and no joint swelling. No calf tenderness. Psychiatric: Depressed affect. Emergency Department course/MDM: Plan for chest x-ray, labs to include potassium, EKG. Lactate screening. 1744: Test and diagnostics discussed with the patient, he feels clearly too weak to be discharged, I do not feel he has an acute new pneumonia or CHF or acute coronary syndrome. Plan for admission, supportive care, ID consult. Discussed with for Fredy 1803. 1913: temperature 38.2, discussed with Dr. Mccoy who recommends admission with no antibiotics at this time. Smoking Status: Never smoked Constitutional: Initial Vital Signs Temperature (C) 36.6 C 06/27/16 16:10 Heart Rate 79 06/27/16 16:10 Respiratory Rate 24 H 06/27/16 16:10 Blood Pressure 103/63 06/27/16 16:10 O2 Sat (%) 92 06/27/16 16:10 O2 Delivery Mode Room Air Allergies/Adverse Reactions: Iodinated Contrast Media - Oral and [Iodinated Contrast Media - IV Dye] Allergy (Severe, Verified 06/27/16 16:09) Dyspnea IODINE CONTACT DYE Allergy (Severe, Uncoded 06/12/14 16:49) Dyspnea Home Medications: Medication Instructions Recorded Amiodarone HCl [Pacerone (*)] 200 mg PO BID 06/27/16 Calcium Acetate [Phoslo (*)] 1,334 mg PO TIDMEAL 06/27/16 Carvedilol [Coreg (*)] 6.25 mg PO BIDMEAL 06/27/16 Levalbuterol 1.25 mg [Xopenex 1 vial IH BID 06/27/16 1.25MG Neb (*)] Levalbuterol Inhaler [Xopenex Hfa 2 puffs IH BID 06/27/16 Inhaler (*)] Mometasone/Formoterol [Dulera 200 2 puffs IH BID 06/27/16 Mcg/5 Mcg Inhaler] Multivitamins [Multivitamin (*)] 1 each PO DAILY 06/27/16 Sodium Polystyrene Sulf [Kionex 10 gm PO DAILY 06/27/16 SPS Powder (*)] Tiotropium Inhaler [Spiriva 18 mcg IH HS 06/27/16 Handihaler] Vancomycin [Vancocin Oral Liquid] 125 mg PO QID 06/27/16 Zafirlukast [Accolate] 20 mg PO BID 06/27/16 guaiFENesin [Mucinex 600 MG (*)] 600 mg PO BID 06/27/16 hydrOXYzine HCL [hydrOXYzine HCL 25 mg PO BID 06/27/16 (RX)] predniSONE 5 mg PO DAILY 06/27/16 traZODone [traZODONE 50MG (*)] 50 mg PO HS PRN 06/27/16 Medical Decision Making - Diagnostics EKG Interpretation: 12-lead EKG interpreted by me; official reading is in trace master. My interpretation is sinus rhythm, APC, late anterior RS transition. Imaging Results: Imaging Impressions Chest X-Ray 06/27/16 16:26 Impression: 1. Partial resolution of right upper lobe pneumonia with significant opacity persisting. 2. Suspect COPD. 3. Probable underlying interstitial lung disease and scarring. Multilobar pneumonia cannot be entirely excluded. 4. Congestive heart failure. Chest x-ray personally interpreted shows improving right upper lung infiltrate, persistent bilateral mid to lower lung infiltrates. Imaging: I viewed and interpreted images myself Differential Diagnosis: Differential for weakness considered including but not limited to pneumonia, hyperkalemia, dehydration, colitis. Consult/Admit Bed Type: [facility] - Data Points Laboratory Results: Laboratory Results 06/27/16 16:38 06/27/16 16:38 06/27/16 06/27/16 06/27/16 16:38 16:38 16:38 WBC 9.66 10^3/uL H 10^3/uL (3.80-9.50) RBC 3.40 10^6/uL L 10^6/uL (4.40-6.38) Hgb 10.8 g/dL L g/dL (13.7-17.5) Hct 34.7 % L % (40.0-51.0) MCV 102.1 fL H fL (81.5-99.8) MCH 31.8 pg pg (27.9-34.1) MCHC 31.1 g/dL L g/dL (32.4-36.7) RDW 14.5 % % (11.5-15.2) Plt Count 190 10^3/uL 10^3/uL (150-400) MPV 9.2 fL fL (8.7-11.7) Neut % (Auto) 50.4 % % (39.3-74.2) Lymph % (Auto) 39.8 % % (15.0-45.0) [place] % (Auto) 6.5 % % (4.5-13.0) Eos % (Auto) 2.2 % % (0.6-7.6) Baso % (Auto) 0.7 % % (0.3-1.7) Nucleat RBC Rel Count 0.0 % % (0.0-0.2) Absolute Neuts (auto) 4.87 10^3/uL 10^3/uL (1.70-6.50) Absolute Lymphs (auto) 3.84 10^3/uL H 10^3/uL (1.00-3.00) Absolute Monos (auto) 0.63 10^3/uL 10^3/uL (0.30-0.80) Absolute Eos (auto) 0.21 10^3/uL 10^3/uL (0.03-0.40) Absolute Basos (auto) 0.07 10^3/uL 10^3/uL (0.02-0.10) Absolute Nucleated RBC 0.00 10^3/uL 10^3/uL (0-0.01) Immature Gran % 0.4 % % (0.0-1.1) Immature Gran # 0.04 10^3/uL 10^3/uL (0.00-0.10) PT 13.8 SEC SEC (12.0-15.0) INR 1.07 (0.83-1.16) APTT 36.0 SEC SEC (23.0-38.0) VBG Lactic Acid Sodium 137 mEq/L mEq/L (134-144) Potassium 5.1 mEq/L mEq/L (3.5-5.2) Chloride 99 mEq/L mEq/L (97-110) Carbon Dioxide 27 mEq/l mEq/l (22-31) Anion Gap 11 mEq/L mEq/L (8-16) BUN 36 mg/dL H mg/dL (7-23) Creatinine 3.9 mg/dL H mg/dL (0.7-1.3) Estimated GFR 16 Glucose 63 mg/dL L mg/dL (70-100) Calcium 8.8 mg/dL mg/dL (8.5-10.4) Total Bilirubin 0.9 mg/dL mg/dL (0.1-1.4) Troponin I 0.017 ng/mL ng/mL (0-0.034) 06/27/16 16:38 WBC RBC Hgb Hct MCV MCH MCHC RDW Plt Count MPV Neut % (Auto) Lymph % (Auto) [place] % (Auto) Eos % (Auto) Baso % (Auto) Nucleat RBC Rel Count Absolute Neuts (auto) Absolute Lymphs (auto) Absolute Monos (auto) Absolute Eos (auto) Absolute Basos (auto) Absolute Nucleated RBC Immature Gran % Immature Gran # PT INR APTT VBG Lactic Acid 1.2 mmol/L mmol/L (0.7-2.1) Sodium Potassium Chloride Carbon Dioxide Anion Gap BUN Creatinine Estimated GFR Glucose Calcium Total Bilirubin Troponin I Departure - Departure Disposition: [facility] Inpatient Acute Clinical Impression: Weakness Condition: Good
--- NOTE | 2016-06-27 16:39 | CPEKG ---
Heart Rate: 79 RR Interval: 759 P-R Interval: 136 QRSD Interval: 100 QT Interval: 384 QTC Interval: 441 P [place]: 86 QRS [place]: 53 T Wave [place]: 103 EKG Severity - ABNORMAL ECG - EKG Impression: SINUS RHYTHM EKG Impression: MULTIPLE ATRIAL PREMATURE COMPLEXES EKG Impression: PROBABLE ANTEROSEPTAL INFARCT, AGE INDETERM EKG Impression: LATERAL LEADS ARE ALSO INVOLVED Electronically Signed By: Riki Geiger 27-Jun-2016 16:43:09
[2016-06-27 16:51] LABS: % IMMATURE GRANULYOCYTES 0.4 % (0.0-1.1); ABSOLUTE IMMATURE GRANULOCYTES 0.04 10^3/uL (0.00-0.10); ADD DIFF? NO; ADD MORPH? NO; ADD SCAN? NO; ATYPICAL LYMPHOCYTE FLAG 0 (0-99); FRAGMENT RBC FLAG 0 (0-99); HEMATOCRIT 34.7 % (40.0-51.0); HEMOGLOBIN 10.8 g/dL (13.7-17.5); LEFT SHIFT FLG 10 (0-99); LIPEMIA HEMOLYSIS FLAG 80 (0-99); MEAN CELL HEMOGLOBIN 31.8 pg (27.9-34.1); MEAN CELL HEMOGLOBIN CONCENTR. 31.1 g/dL (32.4-36.7); MEAN CELL VOLUME 102.1 fL (81.5-99.8); MEAN PLATELET VOLUME 9.2 fL (8.7-11.7); PLATELET CLUMPS FLAG 10 (0-99); PLATELET COUNT 190 10^3/uL (150-400); RED CELL DISTRIBUTION WIDTH 14.5 % (11.5-15.2)
[2016-06-27 17:01] LABS: INR 1.07 (0.83-1.16); PROTIME(PATIENT) 13.8 SEC (12.0-15.0)
[2016-06-27 17:05] LABS: ANION GAP 11 mEq/L (8-16); BILIRUBIN,TOTAL 0.9 mg/dL (0.1-1.4); CALCIUM 8.8 mg/dL (8.5-10.4); CARBON DIOXIDE 27 mEq/l (22-31); CHLORIDE 99 mEq/L (97-110); CREATININE 3.9 mg/dL (0.7-1.3); GLOMERULAR FILTRATION RATE 16; GLUCOSE 63 mg/dL (70-100); POTASSIUM 5.1 mEq/L (3.5-5.2); SODIUM 137 mEq/L (134-144)
[2016-06-27 17:16] LABS: TROPONIN I 0.017 ng/mL (0-0.034)
--- NOTE | 2016-06-27 19:08 | PDGENHP ---
History and Physical History and Physical: HISTORY AND PHYSICAL CC: Generalized weakness HISTORY: This patient comes into the ER today from his home accompanied by a friend with a complaint of generalized weakness, difficulty standing and walking. He apparently mentions something to the ER physician about dyspnea but as I question him he has had no shortness of breath beyond his usual, no cough, no chest discomfort, no fever symptoms. Notably the patient was here discharged on December on June 22 after being diagnosed with Pseudomonas bacteremia, pneumonia worse in the right upper lobe but poly lobar, as well as C difficile. He responded quite well to Merrem for the Pseudomonas infection and had a very rapid resolution of C diff symptoms with p.o. vancomycin. He was discharged home completed his outpatient IV meropenem 2 days ago. He is still taking the vancomycin. As above he has had no recurrence or worsening of any respiratory symptoms and says his respirations are at their baseline. He has no diarrhea though his appetite is little bit decreased. There is no abdominal pain or cramping or bloating. He has had no bleeding. He denies chills or sweats. Of importance he says that his dialysis session yesterday was interrupted by hypotension requiring fluid bolusing but they were able to complete his usual dialysis session. He says they did not find any fever there. He does admit to having less food intake over the last 24 hours than usual. No nausea but decreased appetite. He can be certain whether he drank his usual amount of fluids recently but he is on a somewhat strictured fluid intake due to his end-stage renal disease. He notices no focal weakness or other neurologic symptoms, no chest pain, no palpitations, no will leg swelling. ROS: A comprehensive 10 system review revealed no other significant findings PAST MEDICAL HISTORY: End-stage renal disease on chronic dialysis with polycystic kidney disease, and status post failed renal transplant Bronchiectasis with recurrent pulmonary infections often requiring hospitalization, chronically colonized with Pseudomonas, as well as other organisms IgG deficiency receiving regular IVIG treatments Chronic respiratory failure Asthma Pulmonary hypertension West Nile virus encephalopathy Atrial fibrillation Mitral valve replacement FAMILY MEDICAL HISTORY: No history of related illnesses to his current presentation or his chronic renal disease in family SOCIAL HISTORY: Lives in a private home. He has had recurrent hospitalizations here very frequently. He is quite severely debilitated. So far he has been declining recommended admissions to nursing facilities. MEDICATIONS: The patients list has been reconciled by our clinical pharmacist in the EMR. I have reviewed the list and ordered appropriate medicines. PHYSICAL EXAMINATION: Vital Signs: No fever, stable vitals so far Fence Repairman: Sinus rhythm Examination: General: alert, oriented, good mentation, looks weak and tired but relaxed Skin: warm, dry, good color, no rash HEENT: normal, notably no thrush Neck: no mass or jvd Resps: relaxed Lungs: Very diminished breath sounds with rare crackles Heart: regular, no murmur Abdomen: soft, nondistended, nontender, +BS, no mass Upper Extremities: normal Lower Extremities: no edema, warm No Bleeding or bruising Neurologic: normal speech/language, normal press machine feeder, no focal weakness IV dialysis catheter site is tunneled in looks good LABORATORY DATA: White blood cell count is slightly elevated at 9000 but the neutrophil count is normal with a mildly elevated lymphocyte count Creatinine 3.9 with normal electrolytes and bicarb level Normal troponin RADIOLOGY STUDIES: chest x-ray in the ER, my personal review and interpretation of the colon the right upper lobe infiltrate is improved from last week. There is still some density at the left lung peripherally which is little changed from previous last week. There is no sign of heart failure 12 lead EKG done in the ER, my interpretation of the tracing: Sinus rhythm. Laterally there are some asymmetric T-wave changes associated with some mild ST segment decrease although the voltages are very high here suggestive of possible LVH. When I compared this EKG to his April 2016 EKG the changes in the lateral leads IR identical. On his last 2 EKGs here during May of this year these ST and T-wave changes were not present however on those tracings the voltage is would much lower in these lateral leads raising the possibility of a lead placement effect. ASSESSMENT: -severe generalized weakness acute onset unable to thrive at home -Hypotension during dialysis yesterday required IV fluid bolusing and transient interruption of the dialysis session -recently completed course 2 days ago of meropenem for Pseudomonas bacteremia and pneumonia for which she was admitted here; no increase in dyspnea, cough or fever symptoms in this man with chronic respiratory failure -High risk scenario in this patient with bronchiectasis and many bouts of respiratory infection as well as immune deficiency with IV Ig treatments required -Recent bout of very mild C difficile colitis during prior hospital stay currently still taking vancomycin and without specific symptoms -end-stage renal disease on chronic dialysis -chronic severe debility from multiple acute and chronic medical illnesses compound id likely by malnutrition and other factors At the moment I cannot determine with certainty the cause of his hypotension during dialysis yesterday or his severe fatigue today. It could be possible that he is too dry. Is also possible he could have some acute illness which could include a new infection particularly concerning given his immuno compromise and the presence of a chronic dialysis catheter. However we have no fever and no increase in neutrophils at this point. Similarly the lack of fever or increase in neutrophils as well as the lack of return of respiratory symptoms would argue against recurrence of his recent Pseudomonas infection. He certainly is not having any symptoms to suggest a recurrence while still on treatment of his C difficile infection. There does not appear to be any acute cardiac syndrome. Given his degree of weakness he is certainly not safe to return home, and given his multiple medical issues and high risk factors careful monitoring here in the hospital will be required for safety. PLANS: -Admission hospital -nephrology consultation to continue his dialysis and to help assess his fluid status and its potential impact on his symptoms -Blood cultures were obtained in the ER and will be watched very closely -followed very closely for fevers or any other signs of infection -Continue his oral vancomycin therapy -contact Infectious Disease and have them follow along, with 1 particular questions pertaining to his IVIG which he thinks he is due for -continue his other usual chronic medications at this time -Fall risk precautions and physical occupational therapy consults I have reviewed the patient's case in detail with . I have reviewed the patient's past medical records as part of this assessment, including
[2016-06-27] MEDS ORDERED: ACETAMINOPHEN 325 MG TAB ONE (19:15)
[2016-06-27] MEDS: Mometasone/Formoterol [Dulera 200 Mcg/5 Mcg Inhaler] IH SCH (23:51)
[2016-06-27] MEDS: LEVALBUTEROL 1.25 MG/3 ML DEYVIAL IH SCH (23:51)
[2016-06-27] MEDS: LEVALBUTEROL INHALER 200 PUFFS/15 GM MDI IH SCH (23:51)
[2016-06-27] MEDS: TIOTROPIUM INHALER 18 MCG/DOSE 5 DOSE/MDI IH SCH (23:52)
[2016-06-27] MEDS: hydrOXYzine HCL 25 MG TAB PO SCH (23:57)
[2016-06-27] MEDS: ACETAMINOPHEN 325 MG TAB PO PRN (23:57)
[2016-06-27] MEDS: traZODone 50 MG TAB PO PRN (23:58)
[2016-06-27] MEDS: guaiFENesin 600 MG TAB.ER PO SCH (23:59)
[2016-06-27] MEDS: HEPARIN 5,000 UNIT/0.5 ML SYR SC SCH (23:59)
[2016-06-27] MEDS: VANCOMYCIN 125 MG/2.5 ML UDL PO SCH (23:59)
[2016-06-27] MEDS: AMIODARONE HCL 200 MG TAB PO SCH (23:59)
[2016-06-28] MEDS: HEPARIN 5,000 UNIT/0.5 ML SYR SC SCH ×4 (00:03→23:08)
[2016-06-28] MEDS: ZAFIRLUKAST 20 MG PO SCH ×2 (00:03→19:27)
[2016-06-28 05:15] LABS: ANION GAP 10 mEq/L (8-16); CALCIUM 7.9 mg/dL (8.5-10.4); CARBON DIOXIDE 26 mEq/l (22-31); CHLORIDE 100 mEq/L (97-110); CREATININE 4.8 mg/dL (0.7-1.3); GLOMERULAR FILTRATION RATE 12; GLUCOSE 75 mg/dL (70-100); POTASSIUM 5.6 mEq/L (3.5-5.2); SODIUM 136 mEq/L (134-144)
[2016-06-28 05:20] LABS: % IMMATURE GRANULYOCYTES 0.4 % (0.0-1.1); ABSOLUTE IMMATURE GRANULOCYTES 0.03 10^3/uL (0.00-0.10); ADD DIFF? NO; ADD MORPH? NO; ADD SCAN? NO; ATYPICAL LYMPHOCYTE FLAG 0 (0-99); FRAGMENT RBC FLAG 0 (0-99); HEMATOCRIT 27.5 % (40.0-51.0); HEMOGLOBIN 8.5 g/dL (13.7-17.5); LEFT SHIFT FLG 0 (0-99); LIPEMIA HEMOLYSIS FLAG 80 (0-99); MEAN CELL HEMOGLOBIN 31.1 pg (27.9-34.1); MEAN CELL HEMOGLOBIN CONCENTR. 30.9 g/dL (32.4-36.7); MEAN CELL VOLUME 100.7 fL (81.5-99.8); MEAN PLATELET VOLUME 8.9 fL (8.7-11.7); PLATELET CLUMPS FLAG 0 (0-99); PLATELET COUNT 155 10^3/uL (150-400); RED BLOOD CELL COUNT 2.73 10^6/uL (4.40-6.38); RED CELL DISTRIBUTION WIDTH 14.4 % (11.5-15.2)
[2016-06-28] MEDS: VANCOMYCIN 125 MG/2.5 ML UDL PO SCH ×3 (06:10→17:26)
[2016-06-28] MEDS ORDERED: HEPARIN 50,000 UNIT/10 ML VIAL ONE (06:32)
[2016-06-28] MEDS: CARVEDILOL 6.25 MG TAB PO SCH ×2 (08:50→18:55)
[2016-06-28] MEDS: CALCIUM ACETATE 667 MG CAP PO SCH ×3 (08:51→18:55)
[2016-06-28] MEDS: hydrOXYzine HCL 25 MG TAB PO SCH (08:52)
[2016-06-28] MEDS: predniSONE 5 MG TAB PO SCH (08:52)
[2016-06-28] MEDS: guaiFENesin 600 MG TAB.ER PO SCH (08:52)
[2016-06-28] MEDS: AMIODARONE HCL 200 MG TAB PO SCH (08:52)
[2016-06-28] MEDS: MULTIVITAMINS 1 EACH TAB PO SCH (08:52)
[2016-06-28] MEDS: LEVALBUTEROL 1.25 MG/3 ML DEYVIAL IH SCH ×2 (10:34→20:04)
[2016-06-28] MEDS: LEVALBUTEROL INHALER 200 PUFFS/15 GM MDI IH SCH ×2 (10:34→20:03)
[2016-06-28] MEDS: Mometasone/Formoterol [Dulera 200 Mcg/5 Mcg Inhaler] IH SCH ×2 (10:35→20:05)
[2016-06-28 11:02] LABS: ALBUMIN 2.5 g/dL (3.5-5.0); BILIRUBIN,TOTAL 0.8 mg/dL (0.1-1.4); BILIRUBIN-CONJUGATED 0.8 mg/dL (0.0-0.5); TOTAL PROTEIN 4.5 g/dL (6.3-8.2)
--- NOTE | 2016-06-28 11:16 | PCMIDPN ---
Assessment/Plan: #Low grade temp, transient minimal wbc elevation, severe malaise without localizing symptoms. Query if IgG deficiency is preventing resolution of Cdiff. CXR shows improved infiltrate and in absence of worsening resp sx would not treat for PNA --continue off antibiotics --last IgG 679 in May 2016 but had been holding steady, so had not re-dosed Gamunex. In interim had dc'd immune suppressant meds, which could have been contributing factor. Will re-dose today 40gm. 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 Resp sx at baseline today. Baseline O2 2-3L Subjective: Feeling weak for 2 days, since 06/26. Last dose of meropenem 06/25. 3 loose bm/day. Poor appetite, no abd pain, no oral pain, cough at baseline, denies : SOB, LLE, rash, V[place] Objective: Vital Signs Temp Pulse Resp BP Pulse Ox 37.1 C 63 12 124/67 H 97 06/28/16 08:39 06/28/16 10:36 06/28/16 10:36 06/28/16 08:50 06/28/16 10:36 Laboratory Results 06/28/16 04:30 06/28/16 04:30 06/27/16 06/28/16 06/29/16 05:59 05:59 05:59 Intake Total 540 Balance 540 - Physical Exam General Appearance: alert EENT: No thrush Respiratory: crackles (R base), No respiratory distress, No accessory muscle use Neck: supple Cardiac/Chest: regular rate, rhythm, systolic murmur Extremities: other (R arm fisula site healing well), No pedal edema Abdomen: non-tender, soft, distended (slight) Neuro/Psych: alert, oriented x 3, depressed affect - Line/s Mckoy Lines: other (R chest wall), No drainage, No erythema - Time Spent With Patient Time Spent with Patient: greater than 35 minutes Time Spent with Patient: Greater than 35 minutes spent on this patients care, greater than 50% of time spent counseling, educating, and coordinating care regarding the above mentioned plan. ICD10 Worksheet Patient Problems: Problems Problem Status Onset Weakness Acute Anemia Acute C. difficile diarrhea Acute ~06/18/16 CHF (congestive heart failure) Acute Chronic Disease Mgmt/Transitional Care Acute Chronic Disease Mgmt/Transitional Care Acute Chronic pneumonia Acute Chronic renal failure Acute Dehydration Acute Dialysis complication Acute ESBL (extended spectrum beta-lactamase) producing bacteria infection Acute Extended spectrum beta lactamase (ESBL) resistance Acute 02/15/16 Fever Acute History of pneumonia Acute Hypotension Acute Hypoxemia Acute Hypoxia Acute Leukocytosis Acute Lung infiltrate Acute Mitral valve replaced Acute Palliative care encounter Acute Pneumonia Acute Pneumonia Acute Pneumonia Acute Pneumonia due to Pseudomonas Acute Renal failure Acute Renal transplant recipient Acute Sepsis Acute Severe sepsis Acute Severe sepsis Acute Shortness of breath Acute VRE (vancomycin-resistant Enterococci) Acute 01/11/16 Weakness Acute
[2016-06-28] MEDS ORDERED: IMMUNE GLOBULIN 20 GM/200 ML VIAL IV ONE (11:30)
[2016-06-28] MEDS ORDERED: [UNRECOGNIZED DRUG - OTHER] IV ONE (11:40)
[2016-06-28] MEDS ORDERED: IMMUNE GLOBULIN IV ONE ×2 (11:40→12:00)
[2016-06-28] MEDS ORDERED: [UNRECOGNIZED DRUG - OTHER] IV ONE (12:00)
--- NOTE | 2016-06-28 12:20 | HOSPPROG ---
Hospitalist Progress Note Assessment/Plan: 66 y/o male new to my care today with history of immune deficiency and multiple hospitalizations for pseudomonas bacteremia/pna presenting with #severe generalized weakness acute onset unable to thrive at home worsening since finishing course of abx for pse bacteremia -await repeat IgG -monitor off abx for now -ID consult reviewed and appreciated #Hypotension during dialysis yesterday (improved) -cont to monitor #H/O C difficile colitis -cont PO Vanco #end-stage renal disease on chronic dialysis -I discussed the case with Dr. Sanchez who plan for HD later today A Subjective: still feels weak with generalized malaise. no diarrhea. no cough. no sob. no fever Objective: Vital Signs Temp Pulse Resp BP Pulse Ox 37.1 C 63 12 124/67 H 97 06/28/16 08:39 06/28/16 10:36 06/28/16 10:36 06/28/16 08:50 06/28/16 10:36 Laboratory Results 06/28/16 04:30 06/28/16 04:30 06/27/16 06/28/16 06/29/16 05:59 05:59 05:59 Intake Total 540 Balance 540 PT 13.8 SEC (12.0-15.0) 06/27/16 16:38 INR 1.07 (0.83-1.16) 06/27/16 16:38 cxr was visualized and personally interpreted - Physical Exam Constitutional: no apparent distress, appears nourished, not in pain Cardiovascular: regular rate and rhythym, no murmur, rub, or gallop Respiratory: no respiratory distress, no rales or rhonchi, clear to auscultation Gastrointestinal: normoactive bowel sounds, soft, non-tender abdomen, no palpable masses, No guarding, No rebound Skin: no rashes or abrasions, no fluctuance, no induration Neurologic: AAOx3, CN II-XII Intact, No facial droop ICD10 Worksheet Patient Problems: Problems Problem Status Onset Dehydration Acute Dialysis complication Acute Weakness Acute C. difficile diarrhea Acute ~06/18/16 Chronic Disease Mgmt/Transitional Care Acute Pneumonia Acute Mitral valve replaced Acute Extended spectrum beta lactamase (ESBL) resistance Acute 02/15/16 Renal transplant recipient Acute Chronic renal failure Acute CHF (congestive heart failure) Acute Anemia Acute Hypoxemia Acute Renal failure Acute Shortness of breath Acute Lung infiltrate Acute Hypotension Acute Severe sepsis Acute Pneumonia due to Pseudomonas Acute Hypoxia Acute Sepsis Acute Chronic Disease Mgmt/Transitional Care Acute Fever Acute History of pneumonia Acute VRE (vancomycin-resistant Enterococci) Acute 01/11/16 Palliative care encounter Acute Weakness Acute Chronic pneumonia Acute ESBL (extended spectrum beta-lactamase) producing bacteria infection Acute Leukocytosis Acute Pneumonia Acute Severe sepsis Acute Pneumonia Acute
--- NOTE | 2016-06-28 17:20 | SOAPPROG ---
SOAP Progress Note Assessment/Plan: Assessment: 1. esrd: will dialyze later this evening on typical mwf schedule. Volume status has improved significantly over past several months. Has immature avf in RUE. 2. C diff: remains on treatment for this. 3. weakness: given deconditioning, difficult to determine if there is any truly acute process here. 4. recent hypotension: though volume status improved from prev, he still has evidence of overload on cxr. Will decrease uf on hd today but would also consider decreasing coreg. Plan: 06/28/16 17:17 Subjective: Esrd from pkd, s/p failed transplant, now dialyzing mwf at [facility] unit under care of Dr. Bjorn Benson. Multiple admits here over past several months with recurrent gnr pneumonia among other issues. Just d/c'd last weekend and now readmitted with weakness, which he describes as lack of energy. Apparently had episode of hypotension on hd Wed, he is unsure how much fluid removal was being attempted but does not believe it was excessive. He denies any light- headedness or dizziness at home. Objective: Vital Signs Temp Pulse Resp BP Pulse Ox 37.1 C 63 12 124/67 H 95 06/28/16 08:39 06/28/16 10:36 06/28/16 10:36 06/28/16 08:50 06/28/16 10:55 Laboratory Results 06/28/16 04:30 06/28/16 04:30 06/27/16 06/28/16 06/29/16 05:59 05:59 05:59 Intake Total 540 Balance 540 PT 13.8 SEC (12.0-15.0) 06/27/16 16:38 INR 1.07 (0.83-1.16) 06/27/16 16:38 Physical Exam - Physical Exam General Appearance: other (frail and chronically-ill appearing but nad) Respiratory: rhonchi (scattered anteriorly) Cardiac/Chest: regular rate, rhythm Extremities: pedal edema (trace), other (patent RUE avf) ICD10 Worksheet Patient Problems: Problems Problem Status Onset Weakness Acute Anemia Acute C. difficile diarrhea Acute ~06/18/16 CHF (congestive heart failure) Acute Chronic Disease Mgmt/Transitional Care Acute Chronic Disease Mgmt/Transitional Care Acute Chronic pneumonia Acute Chronic renal failure Acute Dehydration Acute Dialysis complication Acute ESBL (extended spectrum beta-lactamase) producing bacteria infection Acute Extended spectrum beta lactamase (ESBL) resistance Acute 02/15/16 Fever Acute History of pneumonia Acute Hypotension Acute Hypoxemia Acute Hypoxia Acute Leukocytosis Acute Lung infiltrate Acute Mitral valve replaced Acute Palliative care encounter Acute Pneumonia Acute Pneumonia Acute Pneumonia Acute Pneumonia due to Pseudomonas Acute Renal failure Acute Renal transplant recipient Acute Sepsis Acute Severe sepsis Acute Severe sepsis Acute Shortness of breath Acute VRE (vancomycin-resistant Enterococci) Acute 01/11/16 Weakness Acute
[2016-06-28] MEDS: MONTELUKAST SODIUM 10 MG TAB PO SCH (18:54)
[2016-06-28] MEDS: SODIUM POLYSTYRENE SULF 454 GM POWDER PO SCH (19:01)
[2016-06-28] MEDS: EPOETIN ALFA 10,000 UNIT/ML VIAL SC SCH (19:28)
[2016-06-28] MEDS: TIOTROPIUM INHALER 18 MCG/DOSE 5 DOSE/MDI IH SCH (20:20)
[2016-06-29] MEDS: hydrOXYzine HCL 25 MG TAB PO SCH ×2 (01:54→20:36)
[2016-06-29] MEDS: VANCOMYCIN 125 MG/2.5 ML UDL PO SCH ×5 (01:55→20:36)
[2016-06-29] MEDS: AMIODARONE HCL 200 MG TAB PO SCH ×2 (01:55→20:36)
[2016-06-29] MEDS: guaiFENesin 600 MG TAB.ER PO SCH ×3 (01:55→20:36)
[2016-06-29] MEDS: HEPARIN 5,000 UNIT/0.5 ML SYR SC SCH ×3 (06:03→20:53)
[2016-06-29] MEDS: LEVALBUTEROL 1.25 MG/3 ML DEYVIAL IH SCH ×2 (09:03→20:41)
[2016-06-29] MEDS: LEVALBUTEROL INHALER 200 PUFFS/15 GM MDI IH SCH ×2 (09:03→20:43)
[2016-06-29] MEDS: Mometasone/Formoterol [Dulera 200 Mcg/5 Mcg Inhaler] IH SCH ×2 (09:04→20:44)
[2016-06-29] MEDS: MULTIVITAMINS 1 EACH TAB PO SCH (09:26)
[2016-06-29] MEDS: predniSONE 5 MG TAB PO SCH (09:26)
[2016-06-29] MEDS: CARVEDILOL 6.25 MG TAB PO SCH ×2 (09:27→17:58)
[2016-06-29] MEDS: CALCIUM ACETATE 667 MG CAP PO SCH ×3 (09:28→17:57)
[2016-06-29] MEDS: SODIUM POLYSTYRENE SULF 454 GM POWDER PO SCH (10:00)
--- NOTE | 2016-06-29 14:56 | SOAPPROG ---
SOAP Progress Note Assessment/Plan: Assessment: 1. esrd: next dialysis Friday if remains admitted. Volume status looks ok, much improved from previous admissions. On kayexalate for chronic hyperK. 2. C diff: remains on treatment for this, still with some diarrhea but seems to be resolving. 3. weakness: given deconditioning, difficult to determine if there is any truly acute process here. 4. recent hypotension: no issues with hd last night, had evidence of overload on admit cxr. Consider decreasing coreg if has recurrent issues with this. 5. anemia: on epo, exacerbated by recurrent admits with phlebotomy. Would try to minimize blood draws. Plan: 06/28/16 17:17 06/29/16 14:53 Subjective: s/p hd last night with 1L uf, he had no issues with this. Still with some diarrhea but less. Unable to say if he is feeling any stronger. Objective: Vital Signs Temp Pulse Resp BP Pulse Ox 37.3 C 88 16 121/59 H 90 L 06/29/16 07:59 06/29/16 09:00 06/29/16 09:00 06/29/16 07:59 06/29/16 09:00 Laboratory Results 06/28/16 04:30 06/28/16 04:30 06/28/16 06/29/16 06/30/16 05:59 05:59 05:59 Intake Total 540 200 Output Total 1000 Balance 540 -800 PT 13.8 SEC (12.0-15.0) 06/27/16 16:38 INR 1.07 (0.83-1.16) 06/27/16 16:38 Physical Exam - Physical Exam General Appearance: no apparent distress, other (frail and chronically-ill appearing) Extremities: pedal edema (none) ICD10 Worksheet Patient Problems: Problems Problem Status Onset Weakness Acute Anemia Acute C. difficile diarrhea Acute ~06/18/16 CHF (congestive heart failure) Acute Chronic Disease Mgmt/Transitional Care Acute Chronic Disease Mgmt/Transitional Care Acute Chronic pneumonia Acute Chronic renal failure Acute Dehydration Acute Dialysis complication Acute ESBL (extended spectrum beta-lactamase) producing bacteria infection Acute Extended spectrum beta lactamase (ESBL) resistance Acute 02/15/16 Fever Acute History of pneumonia Acute Hypotension Acute Hypoxemia Acute Hypoxia Acute Leukocytosis Acute Lung infiltrate Acute Mitral valve replaced Acute Palliative care encounter Acute Pneumonia Acute Pneumonia Acute Pneumonia Acute Pneumonia due to Pseudomonas Acute Renal failure Acute Renal transplant recipient Acute Sepsis Acute Severe sepsis Acute Severe sepsis Acute Shortness of breath Acute VRE (vancomycin-resistant Enterococci) Acute 01/11/16 Weakness Acute
--- NOTE | 2016-06-29 17:04 | PCMIDPN ---
Assessment/Plan: Assessment/Plan: 1. Low grade temps with malaise, mild leukocytosis: - wbc improved. malaise improved - blood cx so far ngtd -CXr noted. no increase in resp symptomsl -continue to observe of directive antibiotics for now -Received IVIG yesterday. Immunoglobulin level pending 2. C. diff: -positive on 06/18/16 - Currently on oral vanco q6. -Still with 4-5 x/daily of loose stools meds vanco PO 125gm q6- Subjective: intermittent low grade temps. He feels much better today overall. less weak. loose stools about 4-5 x day. denies abd pain. Denies sob. Objective: Vital Signs Temp Pulse Resp BP Pulse Ox 36.8 C 72 18 94/46 L 97 06/29/16 15:13 06/29/16 15:13 06/29/16 15:13 06/29/16 15:13 06/29/16 15:13 Laboratory Results 06/28/16 04:30 06/28/16 04:30 06/28/16 06/29/16 06/30/16 05:59 05:59 05:59 Intake Total 540 200 Output Total 1000 Balance 540 -800 - Physical Exam General Appearance: alert, no apparent distress Respiratory: coarse breath sounds (mild) Cardiac/Chest: regular rate, rhythm Extremities: No swelling Abdomen: normal bowel sounds, non-tender, soft, No distended Skin: No erythema ICD10 Worksheet Patient Problems: Problems Problem Status Onset Weakness Acute Anemia Acute C. difficile diarrhea Acute ~06/18/16 CHF (congestive heart failure) Acute Chronic Disease Mgmt/Transitional Care Acute Chronic Disease Mgmt/Transitional Care Acute Chronic pneumonia Acute Chronic renal failure Acute Dehydration Acute Dialysis complication Acute ESBL (extended spectrum beta-lactamase) producing bacteria infection Acute Extended spectrum beta lactamase (ESBL) resistance Acute 02/15/16 Fever Acute History of pneumonia Acute Hypotension Acute Hypoxemia Acute Hypoxia Acute Leukocytosis Acute Lung infiltrate Acute Mitral valve replaced Acute Palliative care encounter Acute Pneumonia Acute Pneumonia Acute Pneumonia Acute Pneumonia due to Pseudomonas Acute Renal failure Acute Renal transplant recipient Acute Sepsis Acute Severe sepsis Acute Severe sepsis Acute Shortness of breath Acute VRE (vancomycin-resistant Enterococci) Acute 01/11/16 Weakness Acute
--- NOTE | 2016-06-29 17:43 | HOSPPROG ---
Hospitalist Progress Note Assessment/Plan: DIAGNOSES: -severe generalized weakness acute onset unable to thrive at home -Hypotension during dialysis yesterday required IV fluid bolusing and transient interruption of the dialysis session -recently completed course 2 days ago of meropenem for Pseudomonas bacteremia and pneumonia for which she was admitted here; no increase in dyspnea, cough or fever symptoms in this man with chronic respiratory failure -High risk scenario in this patient with bronchiectasis and many bouts of respiratory infection as well as immune deficiency with IV Ig treatments required -Recent bout of very mild C difficile colitis during prior hospital stay currently still taking vancomycin and without specific symptoms - he did not mention having loose stools to me but Dr. Arellano note mentions still having several loose stools per day -end-stage renal disease on chronic dialysis -chronic severe debility from multiple acute and chronic medical illnesses compound id likely by malnutrition and other factors PLANS: -Continue observation off antibiotics for respiratory symptoms -Continue physical occupational therapies -Continue his dialysis here - continue vancomycin for his recent C diff infection SUBJECTIVE: Feels somewhat better overall but still fairly weak. He did do some walking today. Appetite is poor OBJECTIVE Vitals reviewed: of stable without fever Exam: alert oriented skin warm dry color ok resps not labored lungs clear BSs heart regular abd soft nondistended nontender, bowel sounds present limbs warm, no edema iv site ok Objective: Vital Signs Temp Pulse Resp BP Pulse Ox 36.8 C 72 18 94/46 L 97 06/29/16 15:13 06/29/16 15:13 06/29/16 15:13 06/29/16 15:13 06/29/16 15:13 Laboratory Results 06/28/16 04:30 06/28/16 04:30 06/28/16 06/29/16 06/30/16 06:59 06:59 06:59 Intake Total 540 200 Output Total 1000 Balance 540 -800 PT 13.8 SEC (12.0-15.0) 06/27/16 16:38 INR 1.07 (0.83-1.16) 06/27/16 16:38 ICD10 Worksheet Patient Problems: Problems Problem Status Onset Weakness Acute Anemia Acute C. difficile diarrhea Acute ~06/18/16 CHF (congestive heart failure) Acute Chronic Disease Mgmt/Transitional Care Acute Chronic Disease Mgmt/Transitional Care Acute Chronic pneumonia Acute Chronic renal failure Acute Dehydration Acute Dialysis complication Acute ESBL (extended spectrum beta-lactamase) producing bacteria infection Acute Extended spectrum beta lactamase (ESBL) resistance Acute 02/15/16 Fever Acute History of pneumonia Acute Hypotension Acute Hypoxemia Acute Hypoxia Acute Leukocytosis Acute Lung infiltrate Acute Mitral valve replaced Acute Palliative care encounter Acute Pneumonia Acute Pneumonia Acute Pneumonia Acute Pneumonia due to Pseudomonas Acute Renal failure Acute Renal transplant recipient Acute Sepsis Acute Severe sepsis Acute Severe sepsis Acute Shortness of breath Acute VRE (vancomycin-resistant Enterococci) Acute 01/11/16 Weakness Acute
[2016-06-29] MEDS: MONTELUKAST SODIUM 10 MG TAB PO SCH (17:57)
[2016-06-29] MEDS: traZODone 50 MG TAB PO PRN (20:36)
[2016-06-29] MEDS: TIOTROPIUM INHALER 18 MCG/DOSE 5 DOSE/MDI IH SCH (20:41)
[2016-06-30] MEDS: HEPARIN 5,000 UNIT/0.5 ML SYR SC SCH ×3 (05:06→21:10)
[2016-06-30] MEDS: VANCOMYCIN 125 MG/2.5 ML UDL PO SCH ×4 (05:12→21:17)
[2016-06-30] MEDS: CARVEDILOL 6.25 MG TAB PO SCH ×2 (08:52→18:41)
[2016-06-30] MEDS: guaiFENesin 600 MG TAB.ER PO SCH ×2 (08:52→21:17)
[2016-06-30] MEDS: MULTIVITAMINS 1 EACH TAB PO SCH (08:52)
[2016-06-30] MEDS: AMIODARONE HCL 200 MG TAB PO SCH ×2 (08:52→21:17)
[2016-06-30] MEDS: SODIUM POLYSTYRENE SULF 454 GM POWDER PO SCH (08:53)
[2016-06-30] MEDS: CALCIUM ACETATE 667 MG CAP PO SCH ×3 (08:53→18:41)
[2016-06-30] MEDS: hydrOXYzine HCL 25 MG TAB PO SCH ×2 (08:53→21:17)
[2016-06-30] MEDS: predniSONE 5 MG TAB PO SCH (08:53)
[2016-06-30] MEDS: LEVALBUTEROL 1.25 MG/3 ML DEYVIAL IH SCH ×2 (09:29→19:46)
[2016-06-30] MEDS: LEVALBUTEROL INHALER 200 PUFFS/15 GM MDI IH SCH ×2 (09:29→19:48)
[2016-06-30] MEDS: Mometasone/Formoterol [Dulera 200 Mcg/5 Mcg Inhaler] IH SCH ×2 (09:30→19:48)
[2016-06-30] MEDS: ACETAMINOPHEN 325 MG TAB PO PRN (12:10)
--- NOTE | 2016-06-30 15:09 | HOSPPROG ---
Hospitalist Progress Note Assessment/Plan: DIAGNOSES: -severe generalized weakness acute onset unable to thrive at home -Hypotension during dialysis yesterday required IV fluid bolusing and transient interruption of the dialysis session -recently completed course 2 days ago of meropenem for Pseudomonas bacteremia and pneumonia for which she was admitted here; no increase in dyspnea, cough or fever symptoms in this man with chronic respiratory failure -High risk scenario in this patient with bronchiectasis and many bouts of respiratory infection as well as immune deficiency with IV Ig treatments required -Recent bout of very mild C difficile colitis during prior hospital stay currently still taking vancomycin and without specific symptoms - he did not mention having loose stools to me but Dr. Arellano note mentions still having several loose stools per day -end-stage renal disease on chronic dialysis -chronic severe debility from multiple acute and chronic medical illnesses compound id likely by malnutrition and other factors PLANS: -Continue observation off antibiotics for respiratory symptoms for now, but I will repeat a CXR today -Continue vancomycin for his recent C diff infection; I will review w dr Lange, it seems unlikely that his ongoing fever is due to C diff but does have loose stool and fever; it seems the only way to even asses this ? would be endoscopy -Continue physical occupational therapies -Continue his dialysis here SUBJECTIVE: again still c/o weakness and poor appetite, ongoing multiple daily loose stools no abd pain, chest pain , cough or sob OBJECTIVE Vitals reviewed: t max 37.9 yest and today otherwise stable Exam: alert oriented skin warm dry color ok resps not labored lungs clear BSs heart regular abd soft nondistended nontender, bowel sounds present limbs warm, no edema iv site ok Objective: Vital Signs Temp Pulse Resp BP Pulse Ox 37.9 C 80 20 116/60 97 06/30/16 12:02 06/30/16 12:02 06/30/16 12:02 06/30/16 08:00 06/30/16 12:02 Laboratory Results 06/28/16 04:30 06/28/16 04:30 06/29/16 06/30/16 07/01/16 06:59 06:59 06:59 Intake Total 200 Output Total 1000 Balance -800 PT 13.8 SEC (12.0-15.0) 06/27/16 16:38 INR 1.07 (0.83-1.16) 06/27/16 16:38 ICD10 Worksheet Patient Problems: Problems Problem Status Onset Weakness Acute Anemia Acute C. difficile diarrhea Acute ~06/18/16 CHF (congestive heart failure) Acute Chronic Disease Mgmt/Transitional Care Acute Chronic Disease Mgmt/Transitional Care Acute Chronic pneumonia Acute Chronic renal failure Acute Dehydration Acute Dialysis complication Acute ESBL (extended spectrum beta-lactamase) producing bacteria infection Acute Extended spectrum beta lactamase (ESBL) resistance Acute 02/15/16 Fever Acute History of pneumonia Acute Hypotension Acute Hypoxemia Acute Hypoxia Acute Leukocytosis Acute Lung infiltrate Acute Mitral valve replaced Acute Palliative care encounter Acute Pneumonia Acute Pneumonia Acute Pneumonia Acute Pneumonia due to Pseudomonas Acute Renal failure Acute Renal transplant recipient Acute Sepsis Acute Severe sepsis Acute Severe sepsis Acute Shortness of breath Acute VRE (vancomycin-resistant Enterococci) Acute 01/11/16 Weakness Acute
--- NOTE | 2016-06-30 16:10 | SOAPPROG ---
SOAP Progress Note Assessment/Plan: Assessment: 1. esrd: dialysis tomorrow on typical mwf schedule. Volume status much improved from previous admissions, though still with evidence of volume on admit cxr. On kayexalate for chronic hyperK. 2. C diff: remains on treatment for this, still with some diarrhea but seems to be resolving. 3. weakness: given deconditioning, difficult to determine if there is any truly acute process here. 4. recent hypotension: no issues with hd Friday, had evidence of overload on admit cxr. Consider decreasing coreg if has recurrent issues with this. 5. anemia: on epo, exacerbated by recurrent admits with phlebotomy. Would try to minimize blood draws. Plan: 06/28/16 17:17 06/29/16 14:53 06/30/16 16:08 Subjective: No particular c/o. Diarrhea improved but not quite resolved. Objective: Vital Signs Temp Pulse Resp BP Pulse Ox 37.9 C 80 20 116/60 97 06/30/16 12:02 06/30/16 12:02 06/30/16 12:02 06/30/16 08:00 06/30/16 12:02 Laboratory Results 06/28/16 04:30 06/28/16 04:30 06/29/16 06/30/16 07/01/16 05:59 05:59 05:59 Intake Total 200 Output Total 1000 Balance -800 PT 13.8 SEC (12.0-15.0) 06/27/16 16:38 INR 1.07 (0.83-1.16) 06/27/16 16:38 Physical Exam - Physical Exam General Appearance: other (frail but nad) Extremities: pedal edema ICD10 Worksheet Patient Problems: Problems Problem Status Onset Weakness Acute Anemia Acute C. difficile diarrhea Acute ~06/18/16 CHF (congestive heart failure) Acute Chronic Disease Mgmt/Transitional Care Acute Chronic Disease Mgmt/Transitional Care Acute Chronic pneumonia Acute Chronic renal failure Acute Dehydration Acute Dialysis complication Acute ESBL (extended spectrum beta-lactamase) producing bacteria infection Acute Extended spectrum beta lactamase (ESBL) resistance Acute 02/15/16 Fever Acute History of pneumonia Acute Hypotension Acute Hypoxemia Acute Hypoxia Acute Leukocytosis Acute Lung infiltrate Acute Mitral valve replaced Acute Palliative care encounter Acute Pneumonia Acute Pneumonia Acute Pneumonia Acute Pneumonia due to Pseudomonas Acute Renal failure Acute Renal transplant recipient Acute Sepsis Acute Severe sepsis Acute Severe sepsis Acute Shortness of breath Acute VRE (vancomycin-resistant Enterococci) Acute 01/11/16 Weakness Acute
--- NOTE | 2016-06-30 17:14 | PCMIDPN ---
Assessment/Plan: Assessment/Plan: 1. Low grade temps with malaise, mild leukocytosis: - wbc improved. malaise improved - blood cx so far ngtd -CXr noted. no increase in resp symptoms -continue to observe of directive antibiotics for now -Received IVIG. Immunoglobulin level pending -not clear on etiology. Main symptom is loose stools. Could have GI see him for colonscopy to further evaluate. This would help guide managment strategy. -will repeat labs in am. consider ct abd as well to further work up. 2. C. diff: -positive on 06/18/16 - Currently on oral vanco q6. -Still with 4-5 x/daily of loose stools meds vanco PO 125gm q6- Subjective: Still wit intermittent fevers, low grade. he did not fell well this morning but is feeling better now. did have some chills earlier today. Denies sob, worsening cough, abd pain. loose stools still about 4-5x days. denies joint pains, sore throat, or other symptoms. Objective: Vital Signs Temp Pulse Resp BP Pulse Ox 36.4 C 63 16 102/54 L 98 06/30/16 16:00 06/30/16 16:00 06/30/16 16:00 06/30/16 16:00 06/30/16 16:00 Laboratory Results 06/28/16 04:30 06/28/16 04:30 06/29/16 06/30/16 07/01/16 05:59 05:59 05:59 Intake Total 200 Output Total 1000 Balance -800 - Physical Exam General Appearance: alert, no apparent distress EENT: No thrush Respiratory: coarse breath sounds (mild) Cardiac/Chest: regular rate, rhythm Extremities: No swelling Abdomen: normal bowel sounds, non-tender, soft, No distended Skin: No rash ICD10 Worksheet Patient Problems: Problems Problem Status Onset Weakness Acute Anemia Acute C. difficile diarrhea Acute ~06/18/16 CHF (congestive heart failure) Acute Chronic Disease Mgmt/Transitional Care Acute Chronic Disease Mgmt/Transitional Care Acute Chronic pneumonia Acute Chronic renal failure Acute Dehydration Acute Dialysis complication Acute ESBL (extended spectrum beta-lactamase) producing bacteria infection Acute Extended spectrum beta lactamase (ESBL) resistance Acute 02/15/16 Fever Acute History of pneumonia Acute Hypotension Acute Hypoxemia Acute Hypoxia Acute Leukocytosis Acute Lung infiltrate Acute Mitral valve replaced Acute Palliative care encounter Acute Pneumonia Acute Pneumonia Acute Pneumonia Acute Pneumonia due to Pseudomonas Acute Renal failure Acute Renal transplant recipient Acute Sepsis Acute Severe sepsis Acute Severe sepsis Acute Shortness of breath Acute VRE (vancomycin-resistant Enterococci) Acute 01/11/16 Weakness Acute
[2016-06-30] MEDS: MONTELUKAST SODIUM 10 MG TAB PO SCH (18:41)
[2016-06-30] MEDS: TIOTROPIUM INHALER 18 MCG/DOSE 5 DOSE/MDI IH SCH (19:47)
[2016-06-30] MEDS: traZODone 50 MG TAB PO PRN (21:17)
[2016-07-01] MEDS: ACETAMINOPHEN 325 MG TAB PO PRN ×5 (00:02→23:47)
[2016-07-01] MEDS ORDERED: LEVALBUTEROL INHALER 200 PUFFS/15 GM MDI IH ONE (01:52)
[2016-07-01] MEDS: LEVALBUTEROL 1.25 MG/3 ML DEYVIAL IH PRN ×2 (02:13→16:45)
[2016-07-01 04:57] LABS: % IMMATURE GRANULYOCYTES 0.5 % (0.0-1.1); ABSOLUTE IMMATURE GRANULOCYTES 0.03 10^3/uL (0.00-0.10); ADD DIFF? NO; ADD MORPH? NO; ADD SCAN? YES; ATYPICAL LYMPHOCYTE FLAG 0 (0-99); FRAGMENT RBC FLAG 0 (0-99); HEMATOCRIT 26.6 % (40.0-51.0); HEMOGLOBIN 8.4 g/dL (13.7-17.5); LEFT SHIFT FLG 0 (0-99); LIPEMIA HEMOLYSIS FLAG 80 (0-99); MEAN CELL HEMOGLOBIN 31.7 pg (27.9-34.1); MEAN CELL HEMOGLOBIN CONCENTR. 31.6 g/dL (32.4-36.7); MEAN CELL VOLUME 100.4 fL (81.5-99.8); MEAN PLATELET VOLUME 9.1 fL (8.7-11.7); PLATELET CLUMPS FLAG 20 (0-99); PLATELET COUNT 139 10^3/uL (150-400); RED BLOOD CELL COUNT 2.65 10^6/uL (4.40-6.38); RED CELL DISTRIBUTION WIDTH 14.2 % (11.5-15.2)
[2016-07-01] MEDS: VANCOMYCIN 125 MG/2.5 ML UDL PO SCH ×4 (05:15→21:01)
[2016-07-01] MEDS: HEPARIN 5,000 UNIT/0.5 ML SYR SC SCH ×3 (05:24→22:09)
[2016-07-01 05:38] LABS: SCAN NEGATIVE
[2016-07-01] MEDS ORDERED: ALBUMIN 25% 100 ML IV ONE (08:00)
[2016-07-01] MEDS: LEVALBUTEROL INHALER 200 PUFFS/15 GM MDI IH SCH ×2 (09:15→21:06)
[2016-07-01] MEDS: LEVALBUTEROL 1.25 MG/3 ML DEYVIAL IH SCH ×2 (09:15→20:53)
[2016-07-01] MEDS: Mometasone/Formoterol [Dulera 200 Mcg/5 Mcg Inhaler] IH SCH ×2 (09:16→21:07)
--- NOTE | 2016-07-01 09:54 | HOSPPROG ---
Hospitalist Progress Note Assessment/Plan: DIAGNOSES: -severe generalized weakness acute onset unable to thrive at home -Fever, uncertain cause - notably higher last night, needs further evaluation -Hypotension during dialysis last week was likely due to fluid losses from diarrhea; doing better so far here -recently completed course 2 days ago of meropenem for Pseudomonas bacteremia and pneumonia for which he was admitted here; no increase in dyspnea, cough or fever symptoms in this man with chronic respiratory failure abd CXR with ongoing improvement -Chronic IgG deficiency, immune suppression; has received IVIg here -Recent bout of very mild C difficile colitis during prior hospital stay currently still taking vancomycin and without specific symptoms - -end-stage renal disease on chronic dialysis -chronic severe debility from multiple acute and chronic medical illnesses compound id likely by malnutrition and other factors PLANS: -blood cultures today, one via dialysis cath -will review again with ID as fevers increasing -Continue vancomycin for his recent C diff infection; I will review w dr Lange, it seems unlikely that his ongoing fever is due to C diff but does have loose stool and fever; it seems the only way to even asses this ? would be endoscopy -Continue physical occupational therapies -Continue his dialysis here SUBJECTIVE: again still c/o weakness and poor appetite, still having loose stools but less loose yest and only 3 yest so improving; no abd pain or bleeding no chest pain , cough or sob OBJECTIVE Vitals reviewed: t max 39.3 yest and today otherwise stable Exam: alert oriented skin warm dry color ok resps not labored lungs clear BSs heart regular abd soft nondistended nontender, bowel sounds present limbs warm, no edema iv site ok CXR yest, my reading of the images: There is continuing slow resolution of RUL infiltrate from prior pneumonia, rest of lungs with chronic scar/interstitial changes, nothing that appears acute compared to older films Objective: Vital Signs Temp Pulse Resp BP Pulse Ox 37.2 C 60 18 99/57 L 94 07/01/16 07:48 07/01/16 07:48 07/01/16 07:48 07/01/16 07:48 07/01/16 07:48 Laboratory Results 07/01/16 04:44 06/28/16 04:30 06/30/16 07/01/16 07/02/16 06:59 06:59 06:59 Intake Total 250 Balance 250 PT 13.8 SEC (12.0-15.0) 06/27/16 16:38 INR 1.07 (0.83-1.16) 06/27/16 16:38 ICD10 Worksheet Patient Problems: Problems Problem Status Onset Weakness Acute Anemia Acute C. difficile diarrhea Acute ~06/18/16 CHF (congestive heart failure) Acute Chronic Disease Mgmt/Transitional Care Acute Chronic Disease Mgmt/Transitional Care Acute Chronic pneumonia Acute Chronic renal failure Acute Dehydration Acute Dialysis complication Acute ESBL (extended spectrum beta-lactamase) producing bacteria infection Acute Extended spectrum beta lactamase (ESBL) resistance Acute 02/15/16 Fever Acute History of pneumonia Acute Hypotension Acute Hypoxemia Acute Hypoxia Acute Leukocytosis Acute Lung infiltrate Acute Mitral valve replaced Acute Palliative care encounter Acute Pneumonia Acute Pneumonia Acute Pneumonia Acute Pneumonia due to Pseudomonas Acute Renal failure Acute Renal transplant recipient Acute Sepsis Acute Severe sepsis Acute Severe sepsis Acute Shortness of breath Acute VRE (vancomycin-resistant Enterococci) Acute 01/11/16 Weakness Acute
--- NOTE | 2016-07-01 12:54 | SOAPPROG ---
SOAP Progress Note Assessment/Plan: Assessment/Plan: ESRD: failed renal transplant, on HD MWF. - HD done today per routine. - Next HD on Friday. Hypotension: has recently been a problem, has been tolerating HD on this visit without issues. h/o renal transplant: failed, off tacrolimus, still on prednisone. Anemia: pt on epo. Subjective: No acute events overnight. Pt reports feeling weak and tired, having sore throat, not too much coughing. HD done this am with no issues, pt tolerated well. Objective: Vital Signs Temp Pulse Resp BP Pulse Ox 37.2 C 60 18 99/57 L 94 07/01/16 07:48 07/01/16 07:48 07/01/16 07:48 07/01/16 07:48 07/01/16 07:48 Laboratory Results 07/01/16 04:44 06/28/16 04:30 06/30/16 07/01/16 07/02/16 05:59 05:59 05:59 Intake Total 250 Output Total 2000 Balance 250 -2000 PT 13.8 SEC (12.0-15.0) 06/27/16 16:38 INR 1.07 (0.83-1.16) 06/27/16 16:38 General: alert and oriented, no acute distress Eyes; EOMI, PERRL OP: Clear CV: RRR Resp: nonlabored respirations on NC Abd: Soft, NT Ext: no edema BLE Neuro: CN II-XII grossly intact, no asterixis Psych: cooperative ICD10 Worksheet Patient Problems: Problems Problem Status Onset Weakness Acute Anemia Acute C. difficile diarrhea Acute ~06/18/16 CHF (congestive heart failure) Acute Chronic Disease Mgmt/Transitional Care Acute Chronic Disease Mgmt/Transitional Care Acute Chronic pneumonia Acute Chronic renal failure Acute Dehydration Acute Dialysis complication Acute ESBL (extended spectrum beta-lactamase) producing bacteria infection Acute Extended spectrum beta lactamase (ESBL) resistance Acute 02/15/16 Fever Acute History of pneumonia Acute Hypotension Acute Hypoxemia Acute Hypoxia Acute Leukocytosis Acute Lung infiltrate Acute Mitral valve replaced Acute Palliative care encounter Acute Pneumonia Acute Pneumonia Acute Pneumonia Acute Pneumonia due to Pseudomonas Acute Renal failure Acute Renal transplant recipient Acute Sepsis Acute Severe sepsis Acute Severe sepsis Acute Shortness of breath Acute VRE (vancomycin-resistant Enterococci) Acute 01/11/16 Weakness Acute
[2016-07-01] MEDS: predniSONE 5 MG TAB PO SCH (13:15)
[2016-07-01] MEDS: CALCIUM ACETATE 667 MG CAP PO SCH ×3 (13:15→17:13)
[2016-07-01] MEDS: AMIODARONE HCL 200 MG TAB PO SCH ×2 (13:15→21:01)
[2016-07-01] MEDS: MULTIVITAMINS 1 EACH TAB PO SCH (13:15)
[2016-07-01] MEDS: hydrOXYzine HCL 25 MG TAB PO SCH ×2 (13:15→21:01)
[2016-07-01] MEDS: guaiFENesin 600 MG TAB.ER PO SCH ×2 (13:15→21:01)
[2016-07-01] MEDS: CARVEDILOL 6.25 MG TAB PO SCH ×2 (13:16→17:14)
[2016-07-01] MEDS: SODIUM POLYSTYRENE SULF 454 GM POWDER PO SCH (13:19)
--- NOTE | 2016-07-01 16:27 | PCMIDPN ---
Assessment/Plan: Assessment/Plan: * Fever: No defined etiology for fever which has been higher grade over last 2 days. Diarrhea improved today making C difficile seem less likely as etiology. Respiratory symptoms overall have improved after recent treatment for pneumonia. 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 Will proceed with CT scan of chest, abdomen and pelvis for further evaluation. Repeat quantitative serum EBV PCR. Continue to observe off antibiotic therapy. Follow up repeat blood cultures as available. Will check urine histoplasma antigen and serum cryptococcal antigen. * C difficile colitis: Continue oral vancomycin. 07/01/16 16:23 07/01/16 16:25 07/01/16 16:29 Subjective: Patient with recurrent fever and chills this afternoon. No diarrhea today. No other specific complaints other than feels miserable related to fever and chills. Objective: Vital Signs Temp Pulse Resp BP Pulse Ox 38.9 C H 84 18 138/65 H 95 07/01/16 15:28 07/01/16 15:28 07/01/16 15:28 07/01/16 15:28 07/01/16 15:28 Laboratory Results 07/01/16 04:44 06/28/16 04:30 06/30/16 07/01/16 07/02/16 05:59 05:59 05:59 Intake Total 250 Output Total 2000 Balance 250 -2000 Blood cultures 06/27/2016 no growth Blood cultures 06/30/2016 pending Tm 39.3 p.o. vancomycin Status post IVIG - Physical Exam General Appearance: alert, apparent distress (Uncomfortable associated with fever) EENT: pharynx normal, No scleral icterus Respiratory: lungs clear, No respiratory distress Cardiac/Chest: irregularly irregular Extremities: other (No pain over AV fistula site right upper extremity), No inflammation Abdomen: non-tender, No distended ICD10 Worksheet Patient Problems: Problems Problem Status Onset Weakness Acute Anemia Acute C. difficile diarrhea Acute ~06/18/16 CHF (congestive heart failure) Acute Chronic Disease Mgmt/Transitional Care Acute Chronic Disease Mgmt/Transitional Care Acute Chronic pneumonia Acute Chronic renal failure Acute Dehydration Acute Dialysis complication Acute ESBL (extended spectrum beta-lactamase) producing bacteria infection Acute Extended spectrum beta lactamase (ESBL) resistance Acute 02/15/16 Fever Acute History of pneumonia Acute Hypotension Acute Hypoxemia Acute Hypoxia Acute Leukocytosis Acute Lung infiltrate Acute Mitral valve replaced Acute Palliative care encounter Acute Pneumonia Acute Pneumonia Acute Pneumonia Acute Pneumonia due to Pseudomonas Acute Renal failure Acute Renal transplant recipient Acute Sepsis Acute Severe sepsis Acute Severe sepsis Acute Shortness of breath Acute VRE (vancomycin-resistant Enterococci) Acute 01/11/16 Weakness Acute
[2016-07-01] MEDS: MONTELUKAST SODIUM 10 MG TAB PO SCH (17:13)
[2016-07-01] MEDS ORDERED: HEPARIN 50,000 UNIT/10 ML VIAL ONE (18:23)
[2016-07-01] MEDS: TIOTROPIUM INHALER 18 MCG/DOSE 5 DOSE/MDI IH SCH (20:54)
[2016-07-01] MEDS: traZODone 50 MG TAB PO PRN (21:01)
[2016-07-02] MEDS: LEVALBUTEROL 1.25 MG/3 ML DEYVIAL IH PRN (01:47)
[2016-07-02] MEDS: VANCOMYCIN 125 MG/2.5 ML UDL PO SCH ×4 (04:54→20:10)
[2016-07-02] MEDS: ACETAMINOPHEN 325 MG TAB PO PRN (08:01)
[2016-07-02] MEDS: LEVALBUTEROL INHALER 200 PUFFS/15 GM MDI IH SCH ×2 (08:11→22:55)
[2016-07-02] MEDS: LEVALBUTEROL 1.25 MG/3 ML DEYVIAL IH SCH ×2 (08:11→22:54)
[2016-07-02] MEDS: Mometasone/Formoterol [Dulera 200 Mcg/5 Mcg Inhaler] IH SCH ×2 (08:15→22:55)
--- NOTE | 2016-07-02 09:38 | SOAPPROG ---
SOAP Progress Note Assessment/Plan: Assessment:Plan: ESRD-for Hd tomorrow -labs ordered Nutrition-patient states he has little appetite -this is unusual for him, as he is usually up in chair and eating even when he has been at his sickest -change to regular diet with K restriction ID-febrile illness without the typical pulmonary or GI sources -he does not look toxic -he describes weakness and failure to thrive at home -he is on monotherapy for his renal transplant with prednisone therapy of 5 mg daily -he states he has been off his prograf since March -CT report pending -need to consider transplant rejection as part of differential, which could manifest itself in this way -edema or fluid around transplant would increase concern for this type of process 07/02/16 09:35 Subjective: cough, no real diarrhea Objective: Vital Signs Temp Pulse Resp BP Pulse Ox 39.4 C H 80 14 135/66 H 92 07/02/16 07:44 07/02/16 08:13 07/02/16 08:13 07/02/16 07:44 07/02/16 08:13 Laboratory Results 07/01/16 04:44 06/28/16 04:30 07/01/16 07/02/16 07/03/16 05:59 05:59 05:59 Intake Total 250 250 Output Total 2000 Balance 250 -1750 PT 13.8 SEC (12.0-15.0) 06/27/16 16:38 INR 1.07 (0.83-1.16) 06/27/16 16:38 Physical Exam - Physical Exam General Appearance: alert, mild distress, cachetic EENT: normal ENT inspection Neck: normal inspection Respiratory: rhonchi, other (otherwise remarkably clear) Cardiac/Chest: regular rate, rhythm, other (occ extrasystoles) Abdomen: normal bowel sounds, non-tender, soft, other (RLQ renal transplant nontender) Extremities: No swelling ICD10 Worksheet Patient Problems: Problems Problem Status Onset Weakness Acute Anemia Acute C. difficile diarrhea Acute ~06/18/16 CHF (congestive heart failure) Acute Chronic Disease Mgmt/Transitional Care Acute Chronic Disease Mgmt/Transitional Care Acute Chronic pneumonia Acute Chronic renal failure Acute Dehydration Acute Dialysis complication Acute ESBL (extended spectrum beta-lactamase) producing bacteria infection Acute Extended spectrum beta lactamase (ESBL) resistance Acute 02/15/16 Fever Acute History of pneumonia Acute Hypotension Acute Hypoxemia Acute Hypoxia Acute Leukocytosis Acute Lung infiltrate Acute Mitral valve replaced Acute Palliative care encounter Acute Pneumonia Acute Pneumonia Acute Pneumonia Acute Pneumonia due to Pseudomonas Acute Renal failure Acute Renal transplant recipient Acute Sepsis Acute Severe sepsis Acute Severe sepsis Acute Shortness of breath Acute VRE (vancomycin-resistant Enterococci) Acute 01/11/16 Weakness Acute
[2016-07-02] MEDS: HEPARIN 5,000 UNIT/0.5 ML SYR SC SCH ×3 (09:41→20:00)
[2016-07-02] MEDS: guaiFENesin 600 MG TAB.ER PO SCH ×2 (09:44→20:10)
[2016-07-02] MEDS: CARVEDILOL 6.25 MG TAB PO SCH ×2 (09:44→17:52)
[2016-07-02] MEDS: CALCIUM ACETATE 667 MG CAP PO SCH ×3 (09:46→20:10)
[2016-07-02] MEDS: MULTIVITAMINS 1 EACH TAB PO SCH (09:47)
[2016-07-02] MEDS: AMIODARONE HCL 200 MG TAB PO SCH ×2 (09:47→20:10)
[2016-07-02] MEDS: hydrOXYzine HCL 25 MG TAB PO SCH ×2 (09:47→20:11)
[2016-07-02] MEDS: predniSONE 5 MG TAB PO SCH (09:47)
[2016-07-02] MEDS: SODIUM POLYSTYRENE SULF 454 GM POWDER PO SCH (10:26)
--- NOTE | 2016-07-02 16:37 | PCMIDPN ---
Assessment/Plan: Assessment/Plan: * Fever: Persistent high-grade temperature without identified etiology. CT scan of chest, abdomen and pelvis shows worsening infiltrate in right upper lobe when compared to prior CT scans. No other focal findings as etiology for fever noted (no bulky lymphadenopathy; no inflammatory changes around transplant kidney). Think should undergo repeat bronchoscopy to obtain cultures for routine, AFB and fungal etiologies. Will continue observation off antibiotics until cultures have been obtained. Also can obtain specimen to assess for Pneumocystis. Have reviewed with Dr. Bronson who will assess for bronchoscopy. * C difficile colitis: Continue oral vancomycin. Diarrhea remains improved and no evidence of colonic edema on CT scan. 07/02/16 16:31 Subjective: Feels somewhat better today compared to yesterday but still wiped out. Increased cough noted. No diarrhea. Notes sore throat. Objective: Vital Signs Temp Pulse Resp BP Pulse Ox 37.4 C 60 18 110/55 L 96 07/02/16 15:56 07/02/16 15:56 07/02/16 15:56 07/02/16 15:56 07/02/16 15:56 Laboratory Results 07/01/16 04:44 06/28/16 04:30 07/01/16 07/02/16 07/03/16 05:59 05:59 05:59 Intake Total 250 250 Output Total 2000 Balance 250 -1750 Oral vancomycin Blood cultures 06/30/[address] scan chest, abdomen, and pelvis reviewed and interpreted by me with Radiology showing worsening right upper lobe infiltrate; no inflammatory changes around transplant kidney or bulky lymphadenopathy Serum cryptococcal antigen pending - Physical Exam General Appearance: alert, no apparent distress EENT: No pharyngeal erythema, No tonsillar exudate Respiratory: wheezing (Few scattered wheezes bilaterally) Cardiac/Chest: irregularly irregular Abdomen: non-tender, No distended ICD10 Worksheet Patient Problems: Problems Problem Status Onset Weakness Acute Anemia Acute C. difficile diarrhea Acute ~06/18/16 CHF (congestive heart failure) Acute Chronic Disease Mgmt/Transitional Care Acute Chronic Disease Mgmt/Transitional Care Acute Chronic pneumonia Acute Chronic renal failure Acute Dehydration Acute Dialysis complication Acute ESBL (extended spectrum beta-lactamase) producing bacteria infection Acute Extended spectrum beta lactamase (ESBL) resistance Acute 02/15/16 Fever Acute History of pneumonia Acute Hypotension Acute Hypoxemia Acute Hypoxia Acute Leukocytosis Acute Lung infiltrate Acute Mitral valve replaced Acute Palliative care encounter Acute Pneumonia Acute Pneumonia Acute Pneumonia Acute Pneumonia due to Pseudomonas Acute Renal failure Acute Renal transplant recipient Acute Sepsis Acute Severe sepsis Acute Severe sepsis Acute Shortness of breath Acute VRE (vancomycin-resistant Enterococci) Acute 01/11/16 Weakness Acute
[2016-07-02] MEDS: MONTELUKAST SODIUM 10 MG TAB PO SCH (17:52)
--- NOTE | 2016-07-02 19:17 | HOSPPROG ---
Hospitalist Progress Note Assessment/Plan: DIAGNOSES: -severe generalized weakness acute onset unable to thrive at home -Fever, uncertain cause - high fevers continue with no localizing symptoms but worsening R lung findings on chest CT -Hypotension during dialysis last week was likely due to fluid losses from diarrhea; doing better so far here -recently completed course 2 days ago of meropenem for Pseudomonas bacteremia and pneumonia for which he was treated here -Chronic IgG deficiency, immune suppression; has received IVIg here -Recent bout of very mild C difficile colitis during prior hospital stay currently still taking vancomycin -end-stage renal disease on chronic dialysis -chronic severe debility from multiple acute and chronic medical illnesses compound id likely by malnutrition and other factors I have reviewed in detail today with Dr Mccoy, Dr De La Torre, and Dr Sneed With his immunosuppression he is at risk or opportunisitic infections such as PCP, fungal pneumonia, and others There is also the possibility of renal rejection which could include fever; per Dr De La Torre this could easily be not seen on CT scan Malignancy could lead to fever but no specific lesions seen PLANS: -follow blood cultures -Pulm consult to consider bronchoscopy -further diagnostic testing may be necessary -Continue vancomycin for his recent C diff infection -Continue physical occupational therapies -Continue his dialysis here SUBJECTIVE: weakness and poor appetite continue to be predominant symptoms, with some cough today; denies sob still having loose stools but decreasing and no abd pain or bleeding no other localizing sxs for fever he does have chills w his fevers OBJECTIVE Vitals reviewed: t max 39+ again otherwise stable Exam: alert oriented skin warm dry color ok resps not labored lungs clear BSs heart regular abd soft nondistended nontender, bowel sounds present limbs warm, no edema iv site ok CT scan of abd and chest today, I reviewed the images with Dr De La Torre of radiology today: the R lung has worsening diffuse infiltrate, the RUL infiltrate from 2 weeks ago resolving, polycystic disease of the liver and kidneys, and his renal graft looks normal. Objective: Vital Signs Temp Pulse Resp BP Pulse Ox 37.4 C 63 18 116/60 96 07/02/16 15:56 07/02/16 17:52 07/02/16 15:56 07/02/16 17:52 07/02/16 15:56 Laboratory Results 07/01/16 04:44 06/28/16 04:30 07/01/16 07/02/16 07/03/16 06:59 06:59 06:59 Intake Total 250 250 Output Total 2000 0 Balance 250 -1750 0 PT 13.8 SEC (12.0-15.0) 06/27/16 16:38 INR 1.07 (0.83-1.16) 06/27/16 16:38 ICD10 Worksheet Patient Problems: Problems Problem Status Onset Weakness Acute Anemia Acute C. difficile diarrhea Acute ~06/18/16 CHF (congestive heart failure) Acute Chronic Disease Mgmt/Transitional Care Acute Chronic Disease Mgmt/Transitional Care Acute Chronic pneumonia Acute Chronic renal failure Acute Dehydration Acute Dialysis complication Acute ESBL (extended spectrum beta-lactamase) producing bacteria infection Acute Extended spectrum beta lactamase (ESBL) resistance Acute 02/15/16 Fever Acute History of pneumonia Acute Hypotension Acute Hypoxemia Acute Hypoxia Acute Leukocytosis Acute Lung infiltrate Acute Mitral valve replaced Acute Palliative care encounter Acute Pneumonia Acute Pneumonia Acute Pneumonia Acute Pneumonia due to Pseudomonas Acute Renal failure Acute Renal transplant recipient Acute Sepsis Acute Severe sepsis Acute Severe sepsis Acute Shortness of breath Acute VRE (vancomycin-resistant Enterococci) Acute 01/11/16 Weakness Acute
[2016-07-02 19:23] LABS: EBV PCR QT BLD Detected; EBV QT COPIES < 2000 copies/mL
[2016-07-02] MEDS: traZODone 50 MG TAB PO PRN (22:51)
[2016-07-02] MEDS: TIOTROPIUM INHALER 18 MCG/DOSE 5 DOSE/MDI IH SCH (22:55)
[2016-07-03] MEDS: HEPARIN 5,000 UNIT/0.5 ML SYR SC SCH ×3 (04:17→21:14)
[2016-07-03 05:00] LABS: % IMMATURE GRANULYOCYTES 0.5 % (0.0-1.1); ABSOLUTE IMMATURE GRANULOCYTES 0.03 10^3/uL (0.00-0.10); ADD DIFF? NO; ADD MORPH? NO; ADD SCAN? YES; ATYPICAL LYMPHOCYTE FLAG 0 (0-99); FRAGMENT RBC FLAG 0 (0-99); HEMATOCRIT 27.9 % (40.0-51.0); LEFT SHIFT FLG 0 (0-99); LIPEMIA HEMOLYSIS FLAG 80 (0-99); MEAN CELL HEMOGLOBIN 31.6 pg (27.9-34.1); MEAN CELL HEMOGLOBIN CONCENTR. 32.3 g/dL (32.4-36.7); MEAN CELL VOLUME 97.9 fL (81.5-99.8); MEAN PLATELET VOLUME 8.9 fL (8.7-11.7); PLATELET CLUMPS FLAG 0 (0-99); PLATELET COUNT 119 10^3/uL (150-400); RED BLOOD CELL COUNT 2.85 10^6/uL (4.40-6.38)
[2016-07-03] MEDS: VANCOMYCIN 125 MG/2.5 ML UDL PO SCH ×4 (05:11→21:06)
[2016-07-03 05:28] LABS: ALANINE AMINOTRANSFERASE 78 IU/L (21-72); ALBUMIN 2.9 g/dL (3.5-5.0); ALKALINE PHOSPHATASE 140 IU/L (38-126); ANION GAP 13 mEq/L (8-16); ASPARTATE AMINOTRANSFERASE 102 IU/L (17-59); BILIRUBIN,TOTAL 1.2 mg/dL (0.1-1.4); BILIRUBIN-CONJUGATED 1.2 mg/dL (0.0-0.5); CALCIUM 8.1 mg/dL (8.5-10.4); CARBON DIOXIDE 24 mEq/l (22-31); CHLORIDE 95 mEq/L (97-110); GLOMERULAR FILTRATION RATE 9; GLUCOSE 88 mg/dL (70-100); MAGNESIUM 2.3 mg/dL (1.6-2.3); POTASSIUM 5.2 mEq/L (3.5-5.2); SODIUM 132 mEq/L (134-144); TOTAL PROTEIN 5.2 g/dL (6.3-8.2)
[2016-07-03 05:30] LABS: SCAN NEGATIVE
[2016-07-03] MEDS: ACETAMINOPHEN 325 MG TAB PO PRN ×2 (08:56→18:27)
[2016-07-03] MEDS: AMIODARONE HCL 200 MG TAB PO SCH ×2 (08:56→21:07)
[2016-07-03] MEDS: predniSONE 5 MG TAB PO SCH (08:56)
[2016-07-03] MEDS: hydrOXYzine HCL 25 MG TAB PO SCH ×2 (08:56→21:07)
[2016-07-03] MEDS: CARVEDILOL 6.25 MG TAB PO SCH ×2 (09:08→18:27)
--- NOTE | 2016-07-03 09:08 | PCMIDPN ---
Assessment/Plan: #Persistent fever, severe malaise without localizing symptoms. Repeat CT shows worsening PNA RUL. Blood cultures are negative. Recurrent PNA, last due to PsA s/p meropenem, last dose 06/25/16. --Bronch today --patient desires to wait for culture results before resuming broad spec abx, if remains hemodynamically stable #IgG deficiency, last dose Gamunex 06/28/16 #Recent Cdiff, improved diarrhea --continue PO vancomycin Subjective: feels weak less diarrhea no change in resp symptoms Objective: Vital Signs Temp Pulse Resp BP Pulse Ox 38.4 C H 72 18 119/55 L 91 L 07/03/16 07:58 07/03/16 07:58 07/03/16 07:58 07/03/16 07:58 07/03/16 07:58 Laboratory Results 07/03/16 04:48 07/03/16 04:48 07/02/16 07/03/16 07/04/16 05:59 05:59 05:59 Intake Total 250 Output Total 2000 0 Balance -1750 0 - Physical Exam General Appearance: cachetic, other (chr ill appearing) EENT: No thrush Respiratory: crackles, coarse breath sounds, No accessory muscle use Neck: supple Cardiac/Chest: regular rate, rhythm Extremities: No pedal edema Abdomen: non-tender, soft Male Genitalia: No mercer Skin: pallor, No rash Neuro/Psych: alert, normal mood/affect, oriented x 3 - Line/s Mckoy Lines: No drainage, No erythema ICD10 Worksheet Patient Problems: Problems Problem Status Onset Weakness Acute Anemia Acute C. difficile diarrhea Acute ~06/18/16 CHF (congestive heart failure) Acute Chronic Disease Mgmt/Transitional Care Acute Chronic Disease Mgmt/Transitional Care Acute Chronic pneumonia Acute Chronic renal failure Acute Dehydration Acute Dialysis complication Acute ESBL (extended spectrum beta-lactamase) producing bacteria infection Acute Extended spectrum beta lactamase (ESBL) resistance Acute 02/15/16 Fever Acute History of pneumonia Acute Hypotension Acute Hypoxemia Acute Hypoxia Acute Leukocytosis Acute Lung infiltrate Acute Mitral valve replaced Acute Palliative care encounter Acute Pneumonia Acute Pneumonia Acute Pneumonia Acute Pneumonia due to Pseudomonas Acute Renal failure Acute Renal transplant recipient Acute Sepsis Acute Severe sepsis Acute Severe sepsis Acute Shortness of breath Acute VRE (vancomycin-resistant Enterococci) Acute 01/11/16 Weakness Acute
[2016-07-03] MEDS: SODIUM POLYSTYRENE SULF 454 GM POWDER PO SCH (09:09)
[2016-07-03] MEDS: CALCIUM ACETATE 667 MG CAP PO SCH ×3 (09:09→16:33)
[2016-07-03] MEDS: guaiFENesin 600 MG TAB.ER PO SCH ×2 (09:09→21:07)
[2016-07-03] MEDS: LEVALBUTEROL 1.25 MG/3 ML DEYVIAL IH SCH ×2 (09:29→20:45)
[2016-07-03] MEDS: Mometasone/Formoterol [Dulera 200 Mcg/5 Mcg Inhaler] IH SCH ×2 (09:30→21:42)
[2016-07-03] MEDS: LEVALBUTEROL INHALER 200 PUFFS/15 GM MDI IH SCH ×2 (09:30→21:42)
[2016-07-03] MEDS: MULTIVITAMINS 1 EACH TAB PO SCH (11:08)
[2016-07-03] MEDS ORDERED: ALBUTEROL 3 ML DEYVIAL ONE (12:30)
[2016-07-03] MEDS ORDERED: LIDOCAINE 2% JELLY 5 ML TUBE ONE (12:31)
[2016-07-03] MEDS ORDERED: LIDOCAINE 1% 30 ML SDV ONE (12:40)
--- NOTE | 2016-07-03 15:13 | PDINTPN ---
Time Study Technician Progress Note Assessment/Plan: Assessment: Pneumonia: Multilobar, likely bacterial, has hypogammaglobulinemia, could be a resistant organism, recently had PsA. Currently not on antibiotics. Hypogammaglobulinemia: Dosed with IVIG last week. CKD: For HD today. C.Diff Plan: Bronch to get cultures prior to antibiotics. D/W patient. 07/03/16 15:20 Subjective: Feels OK, cough with clear sputum persists.Feels weak. Objective: Vital Signs Temp Pulse Resp BP Pulse Ox 37.2 C 66 14 99/50 L 95 07/03/16 12:00 07/03/16 12:00 07/03/16 12:00 07/03/16 12:00 07/03/16 12:00 Laboratory Results 07/03/16 04:48 07/03/16 04:48 07/02/16 07/03/16 07/04/16 05:59 05:59 05:59 Intake Total 250 Output Total 2000 0 Balance -1750 0 PT 13.8 SEC (12.0-15.0) 06/27/16 16:38 INR 1.07 (0.83-1.16) 06/27/16 16:38 CT Chest: New infiltrates RUL>JEFF. Persistent RLL>RLL infiltrates. Images reviewed. Physical Exam - Physical Exam General Appearance: alert, no apparent distress EENT: normal ENT inspection Neck: normal inspection Respiratory: normal breath sounds (rhonchi), respiratory distress Cardiac/Chest: regular rate, rhythm, No edema Abdomen: normal bowel sounds, non-tender Skin: normal color, warm/dry Extremities: normal inspection Neuro/Psych: alert, normal mood/affect, oriented x 3 ICD10 Worksheet Patient Problems: Problems Problem Status Onset Weakness Acute Anemia Acute C. difficile diarrhea Acute ~06/18/16 CHF (congestive heart failure) Acute Chronic Disease Mgmt/Transitional Care Acute Chronic Disease Mgmt/Transitional Care Acute Chronic pneumonia Acute Chronic renal failure Acute Dehydration Acute Dialysis complication Acute ESBL (extended spectrum beta-lactamase) producing bacteria infection Acute Extended spectrum beta lactamase (ESBL) resistance Acute 02/15/16 Fever Acute History of pneumonia Acute Hypotension Acute Hypoxemia Acute Hypoxia Acute Leukocytosis Acute Lung infiltrate Acute Mitral valve replaced Acute Palliative care encounter Acute Pneumonia Acute Pneumonia Acute Pneumonia Acute Pneumonia due to Pseudomonas Acute Renal failure Acute Renal transplant recipient Acute Sepsis Acute Severe sepsis Acute Severe sepsis Acute Shortness of breath Acute VRE (vancomycin-resistant Enterococci) Acute 01/11/16 Weakness Acute
--- NOTE | 2016-07-03 15:53 | GPN ---
[f rep st] PROCEDURE NOTE DATE OF PROCEDURE: 07/03/2016 PROCEDURE: Flexible fiberoptic bronchoscopy with bronchoalveolar lavage. REASON FOR THE PROCEDURE: Worsening nosocomial pneumonia in an immunocompromised patient with recent antibiotics. DESCRIPTION OF PROCEDURE: The risks and benefits of the procedure were explained to the patient who agreed to proceed. The entire procedure was performed in a negative pressure room. Following an appropriate time-out, the patient's oropharynx was anesthetized with topical Hurricaine spray, and a bite block was placed between his teeth. The bronchoscope was advanced through the bite block into the vocal cords, which moved normally. There were purulent secretions in the posterior pharynx and hypopharynx. The bronchoscope was advanced through the vocal cords into the main trachea, which had scabbed appearance and secretions throughout. I proceeded directly to the posterior segment of the right upper lobe, where a wedge position was obtained and a BAL was performed with approximately 100 cc of saline. The returning fluid had scattered purulent secretions. The trap was then moved from the bronchoscope, and the bronchoscope was removed from the wedge position. I then directly visualized all the airways, and then encountered a [id number] amount of purulent secretions scattered throughout all airways. These were suctioned. There was some minimal friability/bleeding in the left distal mainstem bronchus, but otherwise there was no significant bleeding, and the patient had normal anatomy with no endobronchial lesions. All major airways were essentially clear of secretions by the end of the procedure. The patient tolerated the procedure with good saturations throughout. Versed 0.2 mg and 50 mcg of fentanyl were used intravenously for analgesia and sedation. Specimens were sent for bacterial, fungal and AFB stains and cultures , as well as PCP stains. /[id number]/MODL [id number]
--- NOTE | 2016-07-03 16:52 | SOAPPROG ---
SOAP Progress Note Assessment/Plan: Assessment: 1. ESRD. HD today on MWF schedule. Appears dry. Minimal UF today. 2. Hyperkalemia. On daily kionex. K restriction lifted as pt felt he could not find any food he wanted to eat. Advised to avoid food he knows to be high in K. If K rising will need to reconsider. 3. Lethargy, fevers. Given purulent secretions and new/worsening infiltrate on chest CT scan pulm source seems probable. Not having allograft pain and no stranding seen on CT scan to suggest rejection. Await bronch cultures. 4. Hypotension. Presumable related to sedation from bronch. Follow closely. Hold coreg unless BP imroves tonight. Plan: 07/03/16 16:49 07/03/16 16:53 Subjective: Seen and examined on dialysis. Just back from bronchoscopy. Thirsty, feels "dry." Objective: Vital Signs Temp Pulse Resp BP Pulse Ox 37.2 C 62 16 102/64 95 07/03/16 12:00 07/03/16 15:40 07/03/16 15:40 07/03/16 15:40 07/03/16 15:40 Laboratory Results 07/03/16 04:48 07/03/16 04:48 07/02/16 07/03/16 07/04/16 05:59 05:59 05:59 Intake Total 250 10 Output Total 2000 0 Balance -1750 0 10 PT 13.8 SEC (12.0-15.0) 06/27/16 16:38 INR 1.07 (0.83-1.16) 06/27/16 16:38 Sleepy, on dialysis RRR, no II/ systolic murmur Coarse breath sounds Abdom soft, nontender No LE edema ICD10 Worksheet Patient Problems: Problems Problem Status Onset Dehydration Acute Dialysis complication Acute Weakness Acute C. difficile diarrhea Acute ~06/18/16 Chronic Disease Mgmt/Transitional Care Acute Pneumonia Acute Mitral valve replaced Acute Extended spectrum beta lactamase (ESBL) resistance Acute 02/15/16 Renal transplant recipient Acute Chronic renal failure Acute CHF (congestive heart failure) Acute Anemia Acute Hypoxemia Acute Renal failure Acute Shortness of breath Acute Lung infiltrate Acute Hypotension Acute Severe sepsis Acute Pneumonia due to Pseudomonas Acute Hypoxia Acute Sepsis Acute Chronic Disease Mgmt/Transitional Care Acute Fever Acute History of pneumonia Acute VRE (vancomycin-resistant Enterococci) Acute 01/11/16 Palliative care encounter Acute Weakness Acute Chronic pneumonia Acute ESBL (extended spectrum beta-lactamase) producing bacteria infection Acute Leukocytosis Acute Pneumonia Acute Severe sepsis Acute Pneumonia Acute
[2016-07-03] MEDS: MONTELUKAST SODIUM 10 MG TAB PO SCH (18:28)
--- NOTE | 2016-07-03 18:30 | HOSPPROG ---
Hospitalist Progress Note Assessment/Plan: DIAGNOSES: -severe generalized weakness, acute on chronic, unable to thrive at home -Fever, uncertain cause - high fevers continue with no localizing symptoms but worsening R lung findings on chest CT; Opportunistic infections suspect as well as possible hospital-acquired infection with multiple recent admissions -recently completed course of meropenem for Pseudomonas bacteremia and pneumonia for which he was treated here during a previous admission -Chronic IgG deficiency, immune suppression; has received IVIg here -Recent bout of very mild C difficile colitis during prior hospital stay currently still taking vancomycin; this seems to be resolving slowly but nicely ; no colitis on CT abdomen -end-stage renal disease on chronic dialysis; history of polycystic kidney disease and failed renal transplant -chronic severe debility from multiple acute and chronic medical illnesses compound id likely by malnutrition and other factors I reviewed this case today with doctors [place] in [place] His fevers persist better a little lower today than the past 2 days. Again there is no significant localizing symptom but his chest imaging raises high suspicion for pulmonary infection Patient underwent bronchoscopy today with airway sampling for cultures and will follow these closely. Patient prefers to not begin any antibiotics until we have more information from cultures, and given his overall stability this is reasonable. However he feet develops any significant instability in terms of respiratory, hemodynamic, or other critical body functions will need to begin empiric therapy while waiting for cultures. PLANS: -follow blood cultures As well as bronchoscopy cultures -further diagnostic testing may be necessary -Continue vancomycin for his recent C diff infection -Continue physical, occupational therapies -Continue his dialysis here SUBJECTIVE: no change inweakness and poor appetite; minimal cough no shortness of breath or chest pain still having minimal loose stools but decreasing steadily and no abd pain or bleeding no other localizing sxs for fever he does have chills w his fevers OBJECTIVE Vitals reviewed: t max 38.4 again otherwise stable Exam: alert oriented skin warm dry color ok resps not labored lungs clear BSs heart regular abd soft nondistended nontender, bowel sounds present limbs warm, no edema iv site ok Objective: Vital Signs Temp Pulse Resp BP Pulse Ox 37.2 C 62 16 102/64 95 07/03/16 12:00 07/03/16 15:40 07/03/16 15:40 07/03/16 15:40 07/03/16 15:40 Microbiology 07/03/16 14:10 Gram Stain - Final Lung Right Upper Lobe - Bronchial Washings Laboratory Results 07/03/16 04:48 07/03/16 04:48 07/02/16 07/03/16 07/04/16 06:59 06:59 06:59 Intake Total 250 10 Output Total 2000 0 Balance -1750 0 10 PT 13.8 SEC (12.0-15.0) 06/27/16 16:38 INR 1.07 (0.83-1.16) 06/27/16 16:38 ICD10 Worksheet Patient Problems: Problems Problem Status Onset Weakness Acute Anemia Acute C. difficile diarrhea Acute ~06/18/16 CHF (congestive heart failure) Acute Chronic Disease Mgmt/Transitional Care Acute Chronic Disease Mgmt/Transitional Care Acute Chronic pneumonia Acute Chronic renal failure Acute Dehydration Acute Dialysis complication Acute ESBL (extended spectrum beta-lactamase) producing bacteria infection Acute Extended spectrum beta lactamase (ESBL) resistance Acute 02/15/16 Fever Acute History of pneumonia Acute Hypotension Acute Hypoxemia Acute Hypoxia Acute Leukocytosis Acute Lung infiltrate Acute Mitral valve replaced Acute Palliative care encounter Acute Pneumonia Acute Pneumonia Acute Pneumonia Acute Pneumonia due to Pseudomonas Acute Renal failure Acute Renal transplant recipient Acute Sepsis Acute Severe sepsis Acute Severe sepsis Acute Shortness of breath Acute VRE (vancomycin-resistant Enterococci) Acute 01/11/16 Weakness Acute
[2016-07-03] MEDS: TIOTROPIUM INHALER 18 MCG/DOSE 5 DOSE/MDI IH SCH (21:44)
[2016-07-03] MEDS: traZODone 50 MG TAB PO PRN (22:16)
[2016-07-04] MEDS: VANCOMYCIN 125 MG/2.5 ML UDL PO SCH ×4 (05:20→20:44)
[2016-07-04 05:59] LABS: % IMMATURE GRANULYOCYTES 0.3 % (0.0-1.1); ABSOLUTE IMMATURE GRANULOCYTES 0.02 10^3/uL (0.00-0.10); ADD DIFF? NO; ADD MORPH? NO; ADD SCAN? YES; ATYPICAL LYMPHOCYTE FLAG 0 (0-99); FRAGMENT RBC FLAG 0 (0-99); HEMATOCRIT 30.1 % (40.0-51.0); HEMOGLOBIN 9.8 g/dL (13.7-17.5); LEFT SHIFT FLG 0 (0-99); LIPEMIA HEMOLYSIS FLAG 80 (0-99); MEAN CELL HEMOGLOBIN 31.7 pg (27.9-34.1); MEAN CELL HEMOGLOBIN CONCENTR. 32.6 g/dL (32.4-36.7); MEAN CELL VOLUME 97.4 fL (81.5-99.8); MEAN PLATELET VOLUME 9.3 fL (8.7-11.7); PLATELET CLUMPS FLAG 0 (0-99); PLATELET COUNT 108 10^3/uL (150-400); RED BLOOD CELL COUNT 3.09 10^6/uL (4.40-6.38)
[2016-07-04] MEDS: HEPARIN 5,000 UNIT/0.5 ML SYR SC SCH ×3 (05:59→21:04)
[2016-07-04 06:19] LABS: ALANINE AMINOTRANSFERASE 81 IU/L (21-72); ALBUMIN 2.9 g/dL (3.5-5.0); ALKALINE PHOSPHATASE 173 IU/L (38-126); ANION GAP 11 mEq/L (8-16); ASPARTATE AMINOTRANSFERASE 97 IU/L (17-59); BILIRUBIN,TOTAL 1.1 mg/dL (0.1-1.4); BILIRUBIN-CONJUGATED 1.1 mg/dL (0.0-0.5); CALCIUM 8.7 mg/dL (8.5-10.4); CARBON DIOXIDE 27 mEq/l (22-31); CHLORIDE 96 mEq/L (97-110); GLOMERULAR FILTRATION RATE 15; GLUCOSE 79 mg/dL (70-100); MAGNESIUM 2.1 mg/dL (1.6-2.3); SODIUM 134 mEq/L (134-144); TOTAL PROTEIN 5.3 g/dL (6.3-8.2)
[2016-07-04 06:30] LABS: SCAN NEGATIVE
[2016-07-04] MEDS: CALCIUM ACETATE 667 MG CAP PO SCH ×3 (08:59→18:12)
[2016-07-04] MEDS: CARVEDILOL 6.25 MG TAB PO SCH ×2 (08:59→18:12)
[2016-07-04] MEDS: Mometasone/Formoterol [Dulera 200 Mcg/5 Mcg Inhaler] IH SCH ×2 (08:59→21:51)
[2016-07-04] MEDS: LEVALBUTEROL 1.25 MG/3 ML DEYVIAL IH SCH ×2 (09:32→21:49)
[2016-07-04] MEDS: ACETAMINOPHEN 325 MG TAB PO PRN (09:46)
[2016-07-04] MEDS: LEVALBUTEROL INHALER 200 PUFFS/15 GM MDI IH SCH ×2 (09:49→21:51)
[2016-07-04] MEDS: AMIODARONE HCL 200 MG TAB PO SCH ×2 (10:15→20:44)
[2016-07-04] MEDS: guaiFENesin 600 MG TAB.ER PO SCH ×2 (10:15→20:44)
[2016-07-04] MEDS: predniSONE 5 MG TAB PO SCH (10:15)
[2016-07-04] MEDS: MULTIVITAMINS 1 EACH TAB PO SCH (10:16)
[2016-07-04] MEDS: hydrOXYzine HCL 25 MG TAB PO SCH ×2 (10:16→20:44)
[2016-07-04] MEDS: SODIUM POLYSTYRENE SULF 454 GM POWDER PO SCH (10:22)
--- NOTE | 2016-07-04 11:54 | SOAPPROG ---
SOAP Progress Note Assessment/Plan: Assessment: 1. ESRD. HD tomorrow on MWF schedule. Appears dry. UF 1 L. 2. Hyperkalemia. On daily kionex. K restriction lifted as pt felt he could not find any food he wanted to eat. Advised to avoid food he knows to be high in K. If K rising will need to reconsider. 3. Lethargy, fevers. Given purulent secretions and new/worsening infiltrate on chest CT scan pulm source seems probable. Not having allograft pain and no stranding seen on CT scan to suggest rejection. Await bronch cultures. 4. Hypotension. Deconditioning/sedation with bronch/infxn? Hold coreg prn. Plan: 07/03/16 16:49 07/03/16 16:53 07/04/16 11:53 Subjective: Didn't sleep well. No other complaints today. Objective: Vital Signs Temp Pulse Resp BP Pulse Ox 37.1 C 70 20 98/46 L 90 L 07/04/16 11:17 07/04/16 11:17 07/04/16 11:17 07/04/16 11:17 07/04/16 11:17 Microbiology 07/03/16 14:10 Gram Stain - Final Lung Right Upper Lobe - Bronchial Washings Laboratory Results 07/04/16 05:35 07/04/16 05:35 07/03/16 07/04/16 07/05/16 05:59 05:59 05:59 Intake Total 10 Output Total 0 0 Balance 0 10 PT 13.8 SEC (12.0-15.0) 06/27/16 16:38 INR 1.07 (0.83-1.16) 06/27/16 16:38 Frail, thin, weak appearing wm RRR, II/ MELINDA Coarse crackles heard throughout Abdom soft, nontender No LE edema ICD10 Worksheet Patient Problems: Problems Problem Status Onset Dehydration Acute Dialysis complication Acute Weakness Acute C. difficile diarrhea Acute ~06/18/16 Chronic Disease Mgmt/Transitional Care Acute Pneumonia Acute Mitral valve replaced Acute Extended spectrum beta lactamase (ESBL) resistance Acute 02/15/16 Renal transplant recipient Acute Chronic renal failure Acute CHF (congestive heart failure) Acute Anemia Acute Hypoxemia Acute Renal failure Acute Shortness of breath Acute Lung infiltrate Acute Hypotension Acute Severe sepsis Acute Pneumonia due to Pseudomonas Acute Hypoxia Acute Sepsis Acute Chronic Disease Mgmt/Transitional Care Acute Fever Acute History of pneumonia Acute VRE (vancomycin-resistant Enterococci) Acute 01/11/16 Palliative care encounter Acute Weakness Acute Chronic pneumonia Acute ESBL (extended spectrum beta-lactamase) producing bacteria infection Acute Leukocytosis Acute Pneumonia Acute Severe sepsis Acute Pneumonia Acute
[2016-07-04] MEDS: LEVALBUTEROL 1.25 MG/3 ML DEYVIAL IH PRN ×2 (14:39→17:30)
--- NOTE | 2016-07-04 14:54 | PCMIDPN ---
Assessment/Plan: Assessment: recurrent R sided pneumonia -- bronch showing purulence spread throughout respiratory tree. 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 Will restart meropenem and follow up on sensitivities. Explained to patient that the antibiotic choice is not the reason for the recurrence -- it is due to his chronic aspiration that this problem recurs. Will discuss with Dr. 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 Plan: 1) Start meropenem 1 g IV q 24 hours. 2) Follow clinical course. 3) Follow up sensitivities. 4) Discuss with Dr. Daniel about MILAN possibility. 07/04/16 22:45 Subjective: Patient is sitting up in chair. Better this afternoon than this morning. Patient complains of shortness of breath and cough. Objective: no abx Vital Signs Temp Pulse Resp BP Pulse Ox 37.1 C 70 20 98/46 L 90 L 07/04/16 11:17 07/04/16 11:17 07/04/16 11:17 07/04/16 11:17 07/04/16 11:17 Microbiology 07/03/16 14:10 Gram Stain - Final Lung Right Upper Lobe - Bronchial Washings Laboratory Results 07/04/16 05:35 07/04/16 05:35 07/03/16 07/04/16 07/05/16 05:59 05:59 05:59 Intake Total 10 Output Total 0 0 Balance 0 10 - Physical Exam General Appearance: WD/WN, alert, thin, non-toxic Respiratory: respiratory distress (mild), crackles, No lungs clear, No normal breath sounds Cardiac/Chest: regular rate, rhythm, No tachycardia Skin: normal color, warm/dry, No rash Neuro/Psych: alert, normal mood/affect, oriented x 3 ICD10 Worksheet Patient Problems: Problems Problem Status Onset Weakness Acute Anemia Acute C. difficile diarrhea Acute ~06/18/16 CHF (congestive heart failure) Acute Chronic Disease Mgmt/Transitional Care Acute Chronic Disease Mgmt/Transitional Care Acute Chronic pneumonia Acute Chronic renal failure Acute Dehydration Acute Dialysis complication Acute ESBL (extended spectrum beta-lactamase) producing bacteria infection Acute Extended spectrum beta lactamase (ESBL) resistance Acute 02/15/16 Fever Acute History of pneumonia Acute Hypotension Acute Hypoxemia Acute Hypoxia Acute Leukocytosis Acute Lung infiltrate Acute Mitral valve replaced Acute Palliative care encounter Acute Pneumonia Acute Pneumonia Acute Pneumonia Acute Pneumonia due to Pseudomonas Acute Renal failure Acute Renal transplant recipient Acute Sepsis Acute Severe sepsis Acute Severe sepsis Acute Shortness of breath Acute VRE (vancomycin-resistant Enterococci) Acute 01/11/16 Weakness Acute
[2016-07-04] MEDS ORDERED: NS 500 ML IV ONE (15:47)
[2016-07-04] MEDS ORDERED: MEROPENEM 1 GM in NS 100 ML IV SCH (16:30)
--- NOTE | 2016-07-04 16:39 | PDINTPN ---
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 Copious purulent secretions on bronch. Started meropenem/Vanco. Hypogammaglobulinemia: Dosed with IVIG last week. CKD: For on regularly scheduled HD C.Diff Plan: Follow cultures on current antibiotics. Add Mucomyst. D/W patient. 07/04/16 16:43 Subjective: Feels about the same. Still with cough, sometimes productive of sputum. Objective: Vital Signs Temp Pulse Resp BP Pulse Ox 36.6 C 58 L 16 87/44 L 96 07/04/16 15:22 07/04/16 15:22 07/04/16 15:22 07/04/16 15:22 07/04/16 15:22 Microbiology 07/03/16 14:10 Gram Stain - Final Lung Right Upper Lobe - Bronchial Washings Laboratory Results 07/04/16 05:35 07/04/16 05:35 07/03/16 07/04/16 07/05/16 05:59 05:59 05:59 Intake Total 10 Output Total 0 0 Balance 0 10 PT 13.8 SEC (12.0-15.0) 06/27/16 16:38 INR 1.07 (0.83-1.16) 06/27/16 16:38 Microbiology 07/03/16 14:10 Lung Right Upper Lobe - Bronchial Washings Gram Stain - Final 07/03/16 14:10 Lung Right Upper Lobe - Bronchial Washings Bronchial Washings Culture - Preliminary Gram Neg Winston Nonlactose Ferm. Physical Exam - Physical Exam General Appearance: alert, no apparent distress EENT: normal ENT inspection Neck: normal inspection Respiratory: crackles Cardiac/Chest: regular rate, rhythm, No edema Abdomen: normal bowel sounds, non-tender Skin: normal color, warm/dry Extremities: normal inspection Neuro/Psych: alert, normal mood/affect, oriented x 3 ICD10 Worksheet Patient Problems: Problems Problem Status Onset Weakness Acute Anemia Acute C. difficile diarrhea Acute ~06/18/16 CHF (congestive heart failure) Acute Chronic Disease Mgmt/Transitional Care Acute Chronic Disease Mgmt/Transitional Care Acute Chronic pneumonia Acute Chronic renal failure Acute Dehydration Acute Dialysis complication Acute ESBL (extended spectrum beta-lactamase) producing bacteria infection Acute Extended spectrum beta lactamase (ESBL) resistance Acute 02/15/16 Fever Acute History of pneumonia Acute Hypotension Acute Hypoxemia Acute Hypoxia Acute Leukocytosis Acute Lung infiltrate Acute Mitral valve replaced Acute Palliative care encounter Acute Pneumonia Acute Pneumonia Acute Pneumonia Acute Pneumonia due to Pseudomonas Acute Renal failure Acute Renal transplant recipient Acute Sepsis Acute Severe sepsis Acute Severe sepsis Acute Shortness of breath Acute VRE (vancomycin-resistant Enterococci) Acute 01/11/16 Weakness Acute
--- NOTE | 2016-07-04 17:26 | HOSPPROG ---
Hospitalist Progress Note Assessment/Plan: assessment: 66-year-old male presents with recurrent multilobar pneumonia, suspected to be pseudomonal, complicated by acutely worsening chronic generalized weakness Plan: 1.Recurrent multilobar pneumonia. Evidenced by worsening right lung findings on chest CT, worsening generalized weakness, worsening hypoxia, predisposed secondary to his chronic IgG deficiency and previously infected by Pseudomonas -suspect Pseudomonas as the underlying organism -initiated on meropenem today by infectious disease - bronchoscopy with copious secretions per Dr. Bronson, current bronchoscopy is no growth to date but will continue to monitor - continue to monitor CBC 2. 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 Patient received IVIG 1 week ago 3. Chronic hypoxic respiratory failure. Although the patient reports that he does not wear supplemental oxygen during the daytime, extensive records seem to indicate that the patient is chronically oxygen dependent and he is currently requiring 4-6 L nasal cannula 4. Generalized weakness. Acute on chronic, most likely multifactorial in the setting of recurrent infection, worsening hypoxia, hypotension at hemodialysis - PT, OT, case management will continue to recommend retirement facility -given the patient's significant comorbidities and frequent hospitalizations, I discussed the possibility of palliative consultation with the patient to help him address goals of care the patient would not like to further address goals of care at this time as he believes that his goals are being met through his providers at [facility], with his primary goal being able to continue to travel to [facility] to work at the [employer] there -it is unclear how realistic it is that the patient will continue to accomplish this goal moving forward given his frequent hospitalizations and worsening overall prognosis 5. C difficile colitis. Recent, continue on oral vancomycin, continue to monitor bowel movements 6. End-stage renal disease. Continue on dialysis, continue renal consultation, history of polycystic kidney disease and failed renal transplant 7. Severe protein calorie malnutrition. Evidenced by proximal muscle wasting, cachexia, dietary consultation given limitations from end-stage renal disease 8. paroxysmal atrial fibrillation. Continue home medications Diet. Renal Prophylaxis. High risk patient, heparin subcu Code. full Disposition. Anticipated discharge uncertain this time, clinically on resolved The patient remains highly complex, high risk of morbidity and/or mortality secondary to the issues as outlined above. Subjective: Patient reports he has ongoing diarrhea, does not want to further address goals of care Objective: Vital Signs Temp Pulse Resp BP Pulse Ox 36.6 C 58 L 16 87/44 L 96 07/04/16 15:22 07/04/16 15:22 07/04/16 15:22 07/04/16 15:22 07/04/16 15:22 Microbiology 07/03/16 14:10 Mycobacterial Smear (CASEY) - Final Lung Right Upper Lobe - Bronchial Washings 07/03/16 14:10 Gram Stain - Final Lung Right Upper Lobe - Bronchial Washings Laboratory Results 07/04/16 05:35 07/04/16 05:35 07/03/16 07/04/16 07/05/16 05:59 05:59 05:59 Intake Total 10 680 Output Total 0 0 Balance 0 10 680 PT 13.8 SEC (12.0-15.0) 06/27/16 16:38 INR 1.07 (0.83-1.16) 06/27/16 16:38 - Physical Exam Constitutional: not in pain, chronically ill appearing, cachectic, other ( proximal muscle wasting), No uncomfortable Cardiovascular: systolic murmur ( 2/6 at the sternum), No irregularly irregular , No tachycardia, No edema Respiratory: rhonchi ( bilaterally in the inferior and mid posterior segment), No expiratory wheeze, No bronchial breath sounds, No respiratory distress Gastrointestinal: normoactive bowel sounds, soft, non-tender abdomen, no palpable masses, distension ( moderate) Skin: other ( scattered ecchymoses) Neurologic: AAOx3 Psychiatric: not anxious, not encephalopathic, thought process linear, flat affect, No agitated ICD10 Worksheet Patient Problems: Problems Problem Status Onset Weakness Acute Anemia Acute C. difficile diarrhea Acute ~06/18/16 CHF (congestive heart failure) Acute Chronic Disease Mgmt/Transitional Care Acute Chronic Disease Mgmt/Transitional Care Acute Chronic pneumonia Acute Chronic renal failure Acute Dehydration Acute Dialysis complication Acute ESBL (extended spectrum beta-lactamase) producing bacteria infection Acute Extended spectrum beta lactamase (ESBL) resistance Acute 02/15/16 Fever Acute History of pneumonia Acute Hypotension Acute Hypoxemia Acute Hypoxia Acute Leukocytosis Acute Lung infiltrate Acute Mitral valve replaced Acute Palliative care encounter Acute Pneumonia Acute Pneumonia Acute Pneumonia Acute Pneumonia due to Pseudomonas Acute Renal failure Acute Renal transplant recipient Acute Sepsis Acute Severe sepsis Acute Severe sepsis Acute Shortness of breath Acute VRE (vancomycin-resistant Enterococci) Acute 01/11/16 Weakness Acute
[2016-07-04] MEDS: ACETYLCYSTEINE 20% IH/PO 30 ML VIAL IH SCH (17:30)
[2016-07-04] MEDS: MONTELUKAST SODIUM 10 MG TAB PO SCH (18:12)
[2016-07-04] MEDS: TIOTROPIUM INHALER 18 MCG/DOSE 5 DOSE/MDI IH SCH (21:53)
[2016-07-05] MEDS: LEVALBUTEROL 1.25 MG/3 ML DEYVIAL IH PRN ×2 (00:42→16:50)
[2016-07-05] MEDS: ACETYLCYSTEINE 20% IH/PO 30 ML VIAL IH SCH ×4 (00:44→19:57)
[2016-07-05] MEDS: VANCOMYCIN 125 MG/2.5 ML UDL PO SCH ×4 (05:09→20:36)
[2016-07-05 05:23] LABS: % IMMATURE GRANULYOCYTES 0.3 % (0.0-1.1); ABSOLUTE IMMATURE GRANULOCYTES 0.02 10^3/uL (0.00-0.10); ADD DIFF? NO; ADD MORPH? NO; ADD SCAN? YES; ATYPICAL LYMPHOCYTE FLAG 0 (0-99); FRAGMENT RBC FLAG 0 (0-99); HEMOGLOBIN 9.3 g/dL (13.7-17.5); LEFT SHIFT FLG 10 (0-99); LIPEMIA HEMOLYSIS FLAG 80 (0-99); MEAN CELL HEMOGLOBIN 31.6 pg (27.9-34.1); MEAN CELL HEMOGLOBIN CONCENTR. 32.1 g/dL (32.4-36.7); MEAN CELL VOLUME 98.6 fL (81.5-99.8); MEAN PLATELET VOLUME 9.8 fL (8.7-11.7); PLATELET CLUMPS FLAG 0 (0-99); PLATELET COUNT 96 10^3/uL (150-400); RED BLOOD CELL COUNT 2.94 10^6/uL (4.40-6.38); RED CELL DISTRIBUTION WIDTH 14.1 % (11.5-15.2)
[2016-07-05] MEDS: HEPARIN 5,000 UNIT/0.5 ML SYR SC SCH ×3 (05:44→22:18)
[2016-07-05 06:05] LABS: ALBUMIN 2.6 g/dL (3.5-5.0); ANION GAP 12 mEq/L (8-16); CALCIUM 8.6 mg/dL (8.5-10.4); CARBON DIOXIDE 27 mEq/l (22-31); CHLORIDE 95 mEq/L (97-110); CREATININE 5.6 mg/dL (0.7-1.3); GLOMERULAR FILTRATION RATE 10; GLUCOSE 94 mg/dL (70-100); POTASSIUM 5.1 mEq/L (3.5-5.2); SODIUM 134 mEq/L (134-144)
[2016-07-05 06:36] LABS: SCAN NEGATIVE
[2016-07-05] MEDS: CALCIUM ACETATE 667 MG CAP PO SCH ×3 (08:56→17:04)
--- NOTE | 2016-07-05 09:16 | PCMIDPN ---
Assessment/Plan: # suspect persistent pneumonia right upper lobe with Pseudomonas causing fever and malaise. After 1 dose of meropenem patient feels significantly improved. Treated for 10 days last go around (last dose 06/25), will likely need a longer course --adjust dose meropenem, 500mg IV daily given after dialysis --tentatively planned 3 week course of meropenem #IgG deficiency, last dose Gamunex 06/28/16 #Recent Cdiff, improved diarrhea --continue PO vancomycin # ESRD on HD meds meropenem 1gm IV daily #2 Subjective: feeling better today Objective: Vital Signs Temp Pulse Resp BP Pulse Ox 37.3 C 62 18 128/62 H 94 07/05/16 08:00 07/05/16 08:00 07/05/16 08:00 07/05/16 08:00 07/05/16 08:00 Microbiology 07/03/16 14:10 Mycobacterial Smear (CASEY) - Final Lung Right Upper Lobe - Bronchial Washings 07/03/16 14:10 Gram Stain - Final Lung Right Upper Lobe - Bronchial Washings Laboratory Results 07/05/16 04:46 07/05/16 04:46 07/04/16 07/05/16 07/06/16 05:59 05:59 05:59 Intake Total 10 780 Output Total 0 Balance 10 780 - Physical Exam General Appearance: alert, no apparent distress, cachetic EENT: pale conjunctiva, No scleral icterus Respiratory: coarse breath sounds Neck: supple Cardiac/Chest: regular rate, rhythm Extremities: No pedal edema Abdomen: non-tender, soft Skin: No rash Neuro/Psych: alert, normal mood/affect, oriented x 3 - Line/s Mckoy Lines: No drainage, No erythema ICD10 Worksheet Patient Problems: Problems Problem Status Onset Weakness Acute Anemia Acute C. difficile diarrhea Acute ~06/18/16 CHF (congestive heart failure) Acute Chronic Disease Mgmt/Transitional Care Acute Chronic Disease Mgmt/Transitional Care Acute Chronic pneumonia Acute Chronic renal failure Acute Dehydration Acute Dialysis complication Acute ESBL (extended spectrum beta-lactamase) producing bacteria infection Acute Extended spectrum beta lactamase (ESBL) resistance Acute 02/15/16 Fever Acute History of pneumonia Acute Hypotension Acute Hypoxemia Acute Hypoxia Acute Leukocytosis Acute Lung infiltrate Acute Mitral valve replaced Acute Palliative care encounter Acute Pneumonia Acute Pneumonia Acute Pneumonia Acute Pneumonia due to Pseudomonas Acute Renal failure Acute Renal transplant recipient Acute Sepsis Acute Severe sepsis Acute Severe sepsis Acute Shortness of breath Acute VRE (vancomycin-resistant Enterococci) Acute 01/11/16 Weakness Acute
[2016-07-05] MEDS: LEVALBUTEROL 1.25 MG/3 ML DEYVIAL IH SCH ×3 (09:23→19:57)
[2016-07-05] MEDS: Mometasone/Formoterol [Dulera 200 Mcg/5 Mcg Inhaler] IH SCH (09:31)
[2016-07-05] MEDS: LEVALBUTEROL INHALER 200 PUFFS/15 GM MDI IH SCH (09:41)
--- NOTE | 2016-07-05 10:12 | HOSPPROG ---
Hospitalist Progress Note Assessment/Plan: # recurrent multilobar pna: hx pseudomonas, s/p bronch with pSA - cont merrem per ID - BDs, mucinex, # igG defic - receives intermittent IVIG # ESRD s/p failed graft d/t PKD - HD MWF # a-fib: amio, coreg # c. dif - vanc PO # severe protein calorie malnutrition # debilitation - PT/OT ## chart reviewed CT personally reviewed Subjective: slowly feeling better; no significant diarrhea Objective: Vital Signs Temp Pulse Resp BP Pulse Ox 37.3 C 72 14 128/62 H 94 07/05/16 08:00 07/05/16 09:31 07/05/16 09:31 07/05/16 08:00 07/05/16 09:31 Microbiology 07/03/16 14:10 Mycobacterial Smear (CASEY) - Final Lung Right Upper Lobe - Bronchial Washings 07/03/16 14:10 Gram Stain - Final Lung Right Upper Lobe - Bronchial Washings Laboratory Results 07/05/16 04:46 07/05/16 04:46 07/04/16 07/05/16 07/06/16 05:59 05:59 05:59 Intake Total 10 780 Output Total 0 Balance 10 780 PT 13.8 SEC (12.0-15.0) 06/27/16 16:38 INR 1.07 (0.83-1.16) 06/27/16 16:38 - Physical Exam Constitutional: chronically ill appearing, other (on HD) Cardiovascular: regular rate and rhythym, systolic murmur, other (R HD catheter in place), No irregularly irregular, No diastolic murmur Respiratory: no respiratory distress, other (diffuse crackles, rhonchi, no wheezes) ICD10 Worksheet Patient Problems: Problems Problem Status Onset Weakness Acute Anemia Acute C. difficile diarrhea Acute ~06/18/16 CHF (congestive heart failure) Acute Chronic Disease Mgmt/Transitional Care Acute Chronic Disease Mgmt/Transitional Care Acute Chronic pneumonia Acute Chronic renal failure Acute Dehydration Acute Dialysis complication Acute ESBL (extended spectrum beta-lactamase) producing bacteria infection Acute Extended spectrum beta lactamase (ESBL) resistance Acute 02/15/16 Fever Acute History of pneumonia Acute Hypotension Acute Hypoxemia Acute Hypoxia Acute Leukocytosis Acute Lung infiltrate Acute Mitral valve replaced Acute Palliative care encounter Acute Pneumonia Acute Pneumonia Acute Pneumonia Acute Pneumonia due to Pseudomonas Acute Renal failure Acute Renal transplant recipient Acute Sepsis Acute Severe sepsis Acute Severe sepsis Acute Shortness of breath Acute VRE (vancomycin-resistant Enterococci) Acute 01/11/16 Weakness Acute
--- NOTE | 2016-07-05 10:48 | SOAPPROG ---
SOAP Progress Note Assessment/Plan: Assessment/Plan: ESRD: failed renal transplant, on HD MWF. - HD being done today per routine. - Next HD on Friday. Hypotension: has recently been a problem, has been tolerating HD on this visit without issues. h/o renal transplant: failed, off tacrolimus, still on prednisone. Anemia: pt on epo. Hyperkalemia: managed with HD and daily Kionex. 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 Subjective: No acute events overnight. Pt resting this am, getting HD. Objective: Vital Signs Temp Pulse Resp BP Pulse Ox 37.3 C 72 14 128/62 H 94 07/05/16 08:00 07/05/16 09:31 07/05/16 09:31 07/05/16 08:00 07/05/16 09:31 Microbiology 07/03/16 14:10 Gram Stain - Final Lung Right Upper Lobe - Bronchial Washings 07/03/16 14:10 Mycobacterial Smear ([facility]) - Final Lung Right Upper Lobe - Bronchial Washings Laboratory Results 07/05/16 04:46 07/05/16 04:46 07/04/16 07/05/16 07/06/16 05:59 05:59 05:59 Intake Total 10 780 Output Total 0 Balance 10 780 PT 13.8 SEC (12.0-15.0) 06/27/16 16:38 INR 1.07 (0.83-1.16) 06/27/16 16:38 General: alert and oriented, no acute distress Eyes; EOMI, PERRL CV: RRR Resp: nonlabored respirations on NC Abd: Soft, NT Ext: No edema BLE Neuro: CN II-XII grossly intact Access: RIJ tunneled catheter ICD10 Worksheet Patient Problems: Problems Problem Status Onset Weakness Acute Anemia Acute C. difficile diarrhea Acute ~06/18/16 CHF (congestive heart failure) Acute Chronic Disease Mgmt/Transitional Care Acute Chronic Disease Mgmt/Transitional Care Acute Chronic pneumonia Acute Chronic renal failure Acute Dehydration Acute Dialysis complication Acute ESBL (extended spectrum beta-lactamase) producing bacteria infection Acute Extended spectrum beta lactamase (ESBL) resistance Acute 02/15/16 Fever Acute History of pneumonia Acute Hypotension Acute Hypoxemia Acute Hypoxia Acute Leukocytosis Acute Lung infiltrate Acute Mitral valve replaced Acute Palliative care encounter Acute Pneumonia Acute Pneumonia Acute Pneumonia Acute Pneumonia due to Pseudomonas Acute Renal failure Acute Renal transplant recipient Acute Sepsis Acute Severe sepsis Acute Severe sepsis Acute Shortness of breath Acute VRE (vancomycin-resistant Enterococci) Acute 01/11/16 Weakness Acute
[2016-07-05] MEDS: MEROPENEM IV SCH (11:37)
[2016-07-05] MEDS: NS IV SCH (11:37)
[2016-07-05] MEDS: MULTIVITAMINS 1 EACH TAB PO SCH (11:49)
[2016-07-05] MEDS: CARVEDILOL 6.25 MG TAB PO SCH ×2 (11:49→17:05)
[2016-07-05] MEDS: guaiFENesin 600 MG TAB.ER PO SCH ×2 (11:49→20:36)
[2016-07-05] MEDS: AMIODARONE HCL 200 MG TAB PO SCH ×2 (11:49→20:36)
[2016-07-05] MEDS: predniSONE 5 MG TAB PO SCH (11:49)
[2016-07-05] MEDS: hydrOXYzine HCL 25 MG TAB PO SCH ×2 (11:50→20:36)
[2016-07-05] MEDS: ACETAMINOPHEN 325 MG TAB PO PRN ×2 (13:23→13:28)
[2016-07-05] MEDS: SODIUM POLYSTYRENE SULF 454 GM POWDER PO SCH (13:59)
[2016-07-05] MEDS: EPOETIN ALFA 10,000 UNIT/ML VIAL SC SCH (17:04)
[2016-07-05] MEDS: MONTELUKAST SODIUM 10 MG TAB PO SCH (17:05)
[2016-07-05] MEDS: TIOTROPIUM INHALER 18 MCG/DOSE 5 DOSE/MDI IH SCH (19:59)
[2016-07-05] MEDS: traZODone 50 MG TAB PO PRN (20:36)
[2016-07-06] MEDS: LEVALBUTEROL 1.25 MG/3 ML DEYVIAL IH PRN ×3 (00:12→21:24)
[2016-07-06] MEDS: ACETYLCYSTEINE 20% IH/PO 30 ML VIAL IH SCH ×5 (00:14→21:18)
[2016-07-06] MEDS: LEVALBUTEROL INHALER 200 PUFFS/15 GM MDI IH SCH ×3 (00:15→21:24)
[2016-07-06] MEDS: Mometasone/Formoterol [Dulera 200 Mcg/5 Mcg Inhaler] IH SCH ×3 (00:16→21:25)
[2016-07-06] MEDS: VANCOMYCIN 125 MG/2.5 ML UDL PO SCH ×4 (05:35→20:44)
[2016-07-06 05:42] LABS: % IMMATURE GRANULYOCYTES 0.5 % (0.0-1.1); ABSOLUTE IMMATURE GRANULOCYTES 0.03 10^3/uL (0.00-0.10); ADD DIFF? NO; ADD MORPH? NO; ADD SCAN? NO; ATYPICAL LYMPHOCYTE FLAG 0 (0-99); FRAGMENT RBC FLAG 0 (0-99); HEMOGLOBIN 9.1 g/dL (13.7-17.5); LEFT SHIFT FLG 0 (0-99); LIPEMIA HEMOLYSIS FLAG 80 (0-99); MEAN CELL HEMOGLOBIN 31.3 pg (27.9-34.1); MEAN CELL HEMOGLOBIN CONCENTR. 31.4 g/dL (32.4-36.7); MEAN CELL VOLUME 99.7 fL (81.5-99.8); MEAN PLATELET VOLUME 9.9 fL (8.7-11.7); PLATELET CLUMPS FLAG 0 (0-99); PLATELET COUNT 97 10^3/uL (150-400); RED BLOOD CELL COUNT 2.91 10^6/uL (4.40-6.38); RED CELL DISTRIBUTION WIDTH 14.3 % (11.5-15.2)
[2016-07-06 06:05] LABS: ALANINE AMINOTRANSFERASE 69 IU/L (21-72); ALBUMIN 2.6 g/dL (3.5-5.0); ALKALINE PHOSPHATASE 160 IU/L (38-126); ANION GAP 11 mEq/L (8-16); ASPARTATE AMINOTRANSFERASE 74 IU/L (17-59); BILIRUBIN,TOTAL 1.1 mg/dL (0.1-1.4); BILIRUBIN-CONJUGATED 1.1 mg/dL (0.0-0.5); CALCIUM 8.9 mg/dL (8.5-10.4); CARBON DIOXIDE 29 mEq/l (22-31); CHLORIDE 97 mEq/L (97-110); CREATININE 3.8 mg/dL (0.7-1.3); GLOMERULAR FILTRATION RATE 16; GLUCOSE 83 mg/dL (70-100); POTASSIUM 4.6 mEq/L (3.5-5.2); SODIUM 137 mEq/L (134-144)
[2016-07-06] MEDS: HEPARIN 5,000 UNIT/0.5 ML SYR SC SCH ×3 (06:11→22:07)
[2016-07-06] MEDS: LEVALBUTEROL 1.25 MG/3 ML DEYVIAL IH SCH ×2 (08:50→17:13)
--- NOTE | 2016-07-06 08:51 | SOAPPROG ---
SOAP Progress Note Assessment/Plan: Assessment/Plan: ESRD: failed renal transplant, on HD MWF. - HD done yesterday. - Next HD on Friday. Hypotension: has recently been a problem, has been tolerating HD on this visit without issues. h/o renal transplant: failed, off tacrolimus, still on prednisone. Anemia: pt on epo, Hgb stable at 9.1. Hyperkalemia: managed with HD and daily Kionex. NAS: Phos 4.5, continue calcium acetate with meals. Subjective: Pt had HD yesterday with 1L removed. tolerated well. He had another fever last night, feeling very tired this morning. Objective: Vital Signs Temp Pulse Resp BP Pulse Ox 37.4 C 61 18 129/62 H 94 07/06/16 07:32 07/06/16 07:32 07/06/16 07:32 07/06/16 07:32 07/06/16 07:32 Microbiology 07/03/16 14:10 Gram Stain - Final Lung Right Upper Lobe - Bronchial Washings Bronchial Washings Culture - Final Pseudomonas Aeruginosa Laboratory Results 07/06/16 05:19 07/06/16 05:19 07/05/16 07/06/16 07/07/16 05:59 05:59 05:59 Intake Total 780 700 Balance 780 700 PT 13.8 SEC (12.0-15.0) 06/27/16 16:38 INR 1.07 (0.83-1.16) 06/27/16 16:38 General: alert and oriented, no acute distress, looks tired and chronically ill Eyes: EOMI, PERRL OP: Clear CV: RRR Resp: nonlabored respirations on NC Abd: Soft, NT Ext: no edema BLE Neuro: CN II-XII grossly intact, no asterixis Psych: cooperative, appropriate mood and affect ICD10 Worksheet Patient Problems: Problems Problem Status Onset Weakness Acute Anemia Acute C. difficile diarrhea Acute ~06/18/16 CHF (congestive heart failure) Acute Chronic Disease Mgmt/Transitional Care Acute Chronic Disease Mgmt/Transitional Care Acute Chronic pneumonia Acute Chronic renal failure Acute Dehydration Acute Dialysis complication Acute ESBL (extended spectrum beta-lactamase) producing bacteria infection Acute Extended spectrum beta lactamase (ESBL) resistance Acute 02/15/16 Fever Acute History of pneumonia Acute Hypotension Acute Hypoxemia Acute Hypoxia Acute Leukocytosis Acute Lung infiltrate Acute Mitral valve replaced Acute Palliative care encounter Acute Pneumonia Acute Pneumonia Acute Pneumonia Acute Pneumonia due to Pseudomonas Acute Renal failure Acute Renal transplant recipient Acute Sepsis Acute Severe sepsis Acute Severe sepsis Acute Shortness of breath Acute VRE (vancomycin-resistant Enterococci) Acute 01/11/16 Weakness Acute
--- NOTE | 2016-07-06 10:21 | HOSPPROG ---
Hospitalist Progress Note Assessment/Plan: # recurrent multilobar pna: s/p bronch with pSA, solis-sensitive - cont merrem per ID - BDs, mucinex # igG defic - receives intermittent IVIG; last IgG ok # ESRD s/p failed graft d/t PKD - HD MWF # a-fib: amio, coreg # c. dif - vanc PO # severe protein calorie malnutrition # debilitation - PT/OT Subjective: still feels weak Objective: Vital Signs Temp Pulse Resp BP Pulse Ox 37.4 C 66 22 H 129/62 H 94 07/06/16 07:32 07/06/16 08:53 07/06/16 08:53 07/06/16 07:32 07/06/16 08:53 Microbiology 07/03/16 14:10 Gram Stain - Final Lung Right Upper Lobe - Bronchial Washings Bronchial Washings Culture - Final Pseudomonas Aeruginosa Laboratory Results 07/06/16 05:19 07/06/16 05:19 07/05/16 07/06/16 07/07/16 05:59 05:59 05:59 Intake Total 780 700 Balance 780 700 PT 13.8 SEC (12.0-15.0) 06/27/16 16:38 INR 1.07 (0.83-1.16) 06/27/16 16:[address] Gregory GAR on Fri chart reviewed - Physical Exam Constitutional: chronically ill appearing Cardiovascular: regular rate and rhythym, no murmur, rub, or gallop Respiratory: no respiratory distress, inspiratory crackles (bilat bases), No reduced air movement, No expiratory wheeze Gastrointestinal: normoactive bowel sounds, soft, non-tender abdomen, no palpable masses ICD10 Worksheet Patient Problems: Problems Problem Status Onset Dehydration Acute Dialysis complication Acute Weakness Acute C. difficile diarrhea Acute ~06/18/16 Chronic Disease Mgmt/Transitional Care Acute Pneumonia Acute Mitral valve replaced Acute Extended spectrum beta lactamase (ESBL) resistance Acute 02/15/16 Renal transplant recipient Acute Chronic renal failure Acute CHF (congestive heart failure) Acute Anemia Acute Hypoxemia Acute Renal failure Acute Shortness of breath Acute Lung infiltrate Acute Hypotension Acute Severe sepsis Acute Pneumonia due to Pseudomonas Acute Hypoxia Acute Sepsis Acute Chronic Disease Mgmt/Transitional Care Acute Fever Acute History of pneumonia Acute VRE (vancomycin-resistant Enterococci) Acute 01/11/16 Palliative care encounter Acute Weakness Acute Chronic pneumonia Acute ESBL (extended spectrum beta-lactamase) producing bacteria infection Acute Leukocytosis Acute Pneumonia Acute Severe sepsis Acute Pneumonia Acute
[2016-07-06] MEDS: SODIUM POLYSTYRENE SULF 454 GM POWDER PO SCH (10:32)
[2016-07-06] MEDS: AMIODARONE HCL 200 MG TAB PO SCH ×2 (10:33→20:44)
[2016-07-06] MEDS: guaiFENesin 600 MG TAB.ER PO SCH ×2 (10:33→20:44)
[2016-07-06] MEDS: hydrOXYzine HCL 25 MG TAB PO SCH ×2 (10:33→20:44)
[2016-07-06] MEDS: MULTIVITAMINS 1 EACH TAB PO SCH (10:33)
[2016-07-06] MEDS: predniSONE 5 MG TAB PO SCH (10:33)
[2016-07-06] MEDS: MEROPENEM IV SCH (10:39)
[2016-07-06] MEDS: NS IV SCH (10:39)
[2016-07-06] MEDS: CARVEDILOL 6.25 MG TAB PO SCH ×2 (10:56→18:00)
[2016-07-06] MEDS: CALCIUM ACETATE 667 MG CAP PO SCH ×3 (10:57→17:59)
[2016-07-06] MEDS ORDERED: ALTEPLASE 2 MG VIAL IVP PRN (11:09)
--- NOTE | 2016-07-06 11:11 | PCMIDPN ---
Assessment/Plan: # Suspect persistent pneumonia right upper lobe with Pseudomonas, solis-S. fever yesterday not unexpected, only rec'd 1 dose of antibiotics. No associated bacteremia -- meropenem, 500mg IV daily given after dialysis --tentatively planned 3 week course of meropenem, 07/25 --PICC line today --if continue fever today, repeat blood cx\ #IgG deficiency, last dose Gamunex 06/28/16 #Recent Cdiff, improved diarrhea --continue PO vancomycin, can decrease to BID after 14 days Rx # ESRD on HD meds meropenem 1gm IV daily #3 Subjective: feels better than a couple days ago but a bit more malaise than yesterday Objective: Vital Signs Temp Pulse Resp BP Pulse Ox 37.4 C 66 22 H 129/62 H 94 07/06/16 07:32 07/06/16 10:56 07/06/16 08:53 07/06/16 10:56 07/06/16 08:53 Microbiology 07/03/16 14:10 Gram Stain - Final Lung Right Upper Lobe - Bronchial Washings Bronchial Washings Culture - Final Pseudomonas Aeruginosa Laboratory Results 07/06/16 05:19 07/06/16 05:19 07/05/16 07/06/16 07/07/16 05:59 05:59 05:59 Intake Total 780 700 Balance 780 700 Gen: thin, chr ill appearing, pale HEENT: no oral lesions CV: RRR with some irregularity Chest bi-basilar crackles, no use of accessory resp muscles Abd: soft NT Tunneled HD R subclavian without abn L PIV hand c/d/i ICD10 Worksheet Patient Problems: Problems Problem Status Onset Weakness Acute Anemia Acute C. difficile diarrhea Acute ~06/18/16 CHF (congestive heart failure) Acute Chronic Disease Mgmt/Transitional Care Acute Chronic Disease Mgmt/Transitional Care Acute Chronic pneumonia Acute Chronic renal failure Acute Dehydration Acute Dialysis complication Acute ESBL (extended spectrum beta-lactamase) producing bacteria infection Acute Extended spectrum beta lactamase (ESBL) resistance Acute 02/15/16 Fever Acute History of pneumonia Acute Hypotension Acute Hypoxemia Acute Hypoxia Acute Leukocytosis Acute Lung infiltrate Acute Mitral valve replaced Acute Palliative care encounter Acute Pneumonia Acute Pneumonia Acute Pneumonia Acute Pneumonia due to Pseudomonas Acute Renal failure Acute Renal transplant recipient Acute Sepsis Acute Severe sepsis Acute Severe sepsis Acute Shortness of breath Acute VRE (vancomycin-resistant Enterococci) Acute 01/11/16 Weakness Acute
[2016-07-06] MEDS: ACETAMINOPHEN 325 MG TAB PO PRN (16:15)
[2016-07-06] MEDS: MONTELUKAST SODIUM 10 MG TAB PO SCH (17:59)
[2016-07-06] MEDS: HYDROCODONE/APAP 5/325 TAB PO PRN (20:44)
[2016-07-06] MEDS: traZODone 50 MG TAB PO PRN (20:45)
[2016-07-06] MEDS: TIOTROPIUM INHALER 18 MCG/DOSE 5 DOSE/MDI IH SCH (21:25)
[2016-07-07] MEDS: LEVALBUTEROL 1.25 MG/3 ML DEYVIAL IH PRN ×2 (03:57→17:27)
[2016-07-07] MEDS: ACETYLCYSTEINE 20% IH/PO 30 ML VIAL IH SCH ×5 (03:57→19:38)
[2016-07-07] MEDS: VANCOMYCIN 125 MG/2.5 ML UDL PO SCH ×4 (05:07→20:35)
[2016-07-07 05:24] LABS: % IMMATURE GRANULYOCYTES 0.3 % (0.0-1.1); ABSOLUTE IMMATURE GRANULOCYTES 0.02 10^3/uL (0.00-0.10); ADD DIFF? NO; ADD MORPH? NO; ADD SCAN? YES; ATYPICAL LYMPHOCYTE FLAG 0 (0-99); FRAGMENT RBC FLAG 0 (0-99); HEMATOCRIT 27.2 % (40.0-51.0); HEMOGLOBIN 8.4 g/dL (13.7-17.5); LEFT SHIFT FLG 0 (0-99); LIPEMIA HEMOLYSIS FLAG 80 (0-99); MEAN CELL HEMOGLOBIN 30.7 pg (27.9-34.1); MEAN CELL HEMOGLOBIN CONCENTR. 30.9 g/dL (32.4-36.7); MEAN CELL VOLUME 99.3 fL (81.5-99.8); MEAN PLATELET VOLUME 9.9 fL (8.7-11.7); PLATELET CLUMPS FLAG 10 (0-99); PLATELET COUNT 93 10^3/uL (150-400); RED BLOOD CELL COUNT 2.74 10^6/uL (4.40-6.38); RED CELL DISTRIBUTION WIDTH 14.2 % (11.5-15.2)
[2016-07-07 05:45] LABS: ALBUMIN 2.5 g/dL (3.5-5.0); ANION GAP 11 mEq/L (8-16); CALCIUM 8.5 mg/dL (8.5-10.4); CARBON DIOXIDE 29 mEq/l (22-31); CHLORIDE 95 mEq/L (97-110); GLOMERULAR FILTRATION RATE 12; GLUCOSE 95 mg/dL (70-100); POTASSIUM 4.6 mEq/L (3.5-5.2); SODIUM 135 mEq/L (134-144)
[2016-07-07 06:40] LABS: SCAN NEGATIVE
[2016-07-07] MEDS: HEPARIN 5,000 UNIT/0.5 ML SYR SC SCH ×3 (06:59→21:49)
[2016-07-07] MEDS: CALCIUM ACETATE 667 MG CAP PO SCH ×4 (08:25→17:51)
[2016-07-07] MEDS: AMIODARONE HCL 200 MG TAB PO SCH ×2 (08:26→20:34)
[2016-07-07] MEDS: guaiFENesin 600 MG TAB.ER PO SCH ×2 (08:26→20:35)
[2016-07-07] MEDS: CARVEDILOL 6.25 MG TAB PO SCH ×2 (08:26→17:48)
[2016-07-07] MEDS: predniSONE 5 MG TAB PO SCH (08:26)
[2016-07-07] MEDS: MULTIVITAMINS 1 EACH TAB PO SCH (08:26)
[2016-07-07] MEDS: hydrOXYzine HCL 25 MG TAB PO SCH ×2 (08:26→20:34)
[2016-07-07] MEDS: MEROPENEM IV SCH (08:29)
[2016-07-07] MEDS: NS IV SCH (08:29)
[2016-07-07] MEDS: SODIUM POLYSTYRENE SULF 454 GM POWDER PO SCH (08:33)
--- NOTE | 2016-07-07 08:34 | HOSPPROG ---
Hospitalist Progress Note Assessment/Plan: # recurrent multilobar pna: s/p bronch with pseudomonas, solis-sensitive - cont merrem per ID renally dosed - BDs, mucinex - IS, flutter valve # IgG defic - receives intermittent IVIG; last dose 06/28 # ESRD d/t PKD s/p failed graft - HD MWF # mildly elevated LFTs - follow occasionally # a-fib: amio, coreg # htn: coreg, hydralazine # c. dif - vanc PO # severe protein calorie malnutrition # debilitation - PT/OT # lovenox Subjective: slightly stronger today Objective: Vital Signs Temp Pulse Resp BP Pulse Ox 36.8 C 56 L 18 180/64 H 96 07/07/16 08:00 07/07/16 08:00 07/07/16 08:00 07/07/16 08:00 07/07/16 08:00 Microbiology 06/30/16 10:59 Blood Culture - Final Blood 06/30/16 11:09 Blood Culture - Final Blood Laboratory Results 07/07/16 05:10 07/07/16 05:10 07/06/16 07/07/16 07/08/16 05:59 05:59 05:59 Intake Total 700 1050 Balance 700 1050 PT 13.8 SEC (12.0-15.0) 06/27/16 16:38 INR 1.07 (0.83-1.16) 06/27/16 16:38 - Physical Exam Constitutional: chronically ill appearing Cardiovascular: regular rate and rhythym, systolic murmur, No irregularly irregular, No carotid bruit Respiratory: no respiratory distress, other (diffuse bilat rales, greatest in bases), No expiratory wheeze, No bronchial breath sounds Gastrointestinal: normoactive bowel sounds, soft, non-tender abdomen, no palpable masses ICD10 Worksheet Patient Problems: Problems Problem Status Onset Dehydration Acute Dialysis complication Acute Weakness Acute C. difficile diarrhea Acute ~06/18/16 Chronic Disease Mgmt/Transitional Care Acute Pneumonia Acute Mitral valve replaced Acute Extended spectrum beta lactamase (ESBL) resistance Acute 02/15/16 Renal transplant recipient Acute Chronic renal failure Acute CHF (congestive heart failure) Acute Anemia Acute Hypoxemia Acute Renal failure Acute Shortness of breath Acute Lung infiltrate Acute Hypotension Acute Severe sepsis Acute Pneumonia due to Pseudomonas Acute Hypoxia Acute Sepsis Acute Chronic Disease Mgmt/Transitional Care Acute Fever Acute History of pneumonia Acute VRE (vancomycin-resistant Enterococci) Acute 01/11/16 Palliative care encounter Acute Weakness Acute Chronic pneumonia Acute ESBL (extended spectrum beta-lactamase) producing bacteria infection Acute Leukocytosis Acute Pneumonia Acute Severe sepsis Acute Pneumonia Acute
--- NOTE | 2016-07-07 10:22 | SOAPPROG ---
SOAP Progress Note Assessment/Plan: Assessment/Plan: ESRD: failed renal transplant, on HD MWF. - HD done Friday. - Next HD on Friday. Hypotension: has recently been a problem, has been tolerating HD on this visit without issues. h/o renal transplant: failed, off tacrolimus, still on prednisone. Anemia: pt on epo, Hgb 8.4 today. Hyperkalemia: managed with HD and daily Kionex. NAS: Phos 4.8, continue calcium acetate with meals. Subjective: No acute events overnight. Pt had no fever overnight. Got PICC line yesterday for abx. He still feels weak. Objective: Vital Signs Temp Pulse Resp BP Pulse Ox 36.8 C 60 18 125/67 H 96 07/07/16 08:00 07/07/16 08:26 07/07/16 08:00 07/07/16 08:26 07/07/16 08:00 Microbiology 06/30/16 10:59 Blood Culture - Final Blood 06/30/16 11:09 Blood Culture - Final Blood Laboratory Results 07/07/16 05:10 07/07/16 05:10 07/06/16 07/07/16 07/08/16 05:59 05:59 05:59 Intake Total 700 1050 Balance 700 1050 PT 13.8 SEC (12.0-15.0) 06/27/16 16:38 INR 1.07 (0.83-1.16) 06/27/16 16:38 General: alert and oriented, no acute distress Eyes; EOMI, PERRL OP: CLear CV: RRR Resp: nonlabored respirations on NC Abd: Soft, NT Ext: no edema BLE neuro: CN II-XII grossly intact, no asterixis Psych: cooperative, appropriate mood and affect ICD10 Worksheet Patient Problems: Problems Problem Status Onset Weakness Acute Anemia Acute C. difficile diarrhea Acute ~06/18/16 CHF (congestive heart failure) Acute Chronic Disease Mgmt/Transitional Care Acute Chronic Disease Mgmt/Transitional Care Acute Chronic pneumonia Acute Chronic renal failure Acute Dehydration Acute Dialysis complication Acute ESBL (extended spectrum beta-lactamase) producing bacteria infection Acute Extended spectrum beta lactamase (ESBL) resistance Acute 02/15/16 Fever Acute History of pneumonia Acute Hypotension Acute Hypoxemia Acute Hypoxia Acute Leukocytosis Acute Lung infiltrate Acute Mitral valve replaced Acute Palliative care encounter Acute Pneumonia Acute Pneumonia Acute Pneumonia Acute Pneumonia due to Pseudomonas Acute Renal failure Acute Renal transplant recipient Acute Sepsis Acute Severe sepsis Acute Severe sepsis Acute Shortness of breath Acute VRE (vancomycin-resistant Enterococci) Acute 01/11/16 Weakness Acute
[2016-07-07] MEDS: Mometasone/Formoterol [Dulera 200 Mcg/5 Mcg Inhaler] IH SCH ×2 (11:04→21:39)
[2016-07-07] MEDS: LEVALBUTEROL 1.25 MG/3 ML DEYVIAL IH SCH ×2 (11:06→19:37)
[2016-07-07] MEDS: LEVALBUTEROL INHALER 200 PUFFS/15 GM MDI IH SCH ×2 (11:06→21:39)
--- NOTE | 2016-07-07 13:38 | PCMIDPN ---
Assessment/Plan: PATIENT SLEEPING TODAY and DID NOT WAKE UP. REPORTED SX IMPROVEMENT TODAY. WILL START INTERAGENCY # Suspect persistent pneumonia right upper lobe with Pseudomonas, solis-S. fever yesterday not unexpected, only rec'd 1 dose of antibiotics. No associated bacteremia. -- meropenem, 500mg IV daily given after dialysis --tentatively planned 3 week course of meropenem, 07/25 --planning LTAC DC, possible tomorrow #IgG deficiency, last dose Gamunex 06/28/16 #Recent Cdiff, improved diarrhea --continue PO vancomycin, can decrease to BID after 14 days Rx # ESRD on HD meds meropenem 1gm IV daily #4 Objective: Vital Signs Temp Pulse Resp BP Pulse Ox 36.7 C 57 L 17 133/67 H 95 07/07/16 11:10 07/07/16 11:25 07/07/16 11:25 07/07/16 11:10 07/07/16 11:25 Microbiology 06/30/16 10:59 Blood Culture - Final Blood 06/30/16 11:09 Blood Culture - Final Blood Laboratory Results 07/07/16 05:10 07/07/16 05:10 07/06/16 07/07/16 07/08/16 05:59 05:59 05:59 Intake Total 700 1050 Balance 700 1050 ICD10 Worksheet Patient Problems: Problems Problem Status Onset Weakness Acute Anemia Acute C. difficile diarrhea Acute ~06/18/16 CHF (congestive heart failure) Acute Chronic Disease Mgmt/Transitional Care Acute Chronic Disease Mgmt/Transitional Care Acute Chronic pneumonia Acute Chronic renal failure Acute Dehydration Acute Dialysis complication Acute ESBL (extended spectrum beta-lactamase) producing bacteria infection Acute Extended spectrum beta lactamase (ESBL) resistance Acute 02/15/16 Fever Acute History of pneumonia Acute Hypotension Acute Hypoxemia Acute Hypoxia Acute Leukocytosis Acute Lung infiltrate Acute Mitral valve replaced Acute Palliative care encounter Acute Pneumonia Acute Pneumonia Acute Pneumonia Acute Pneumonia due to Pseudomonas Acute Renal failure Acute Renal transplant recipient Acute Sepsis Acute Severe sepsis Acute Severe sepsis Acute Shortness of breath Acute VRE (vancomycin-resistant Enterococci) Acute 01/11/16 Weakness Acute
--- NOTE | 2016-07-07 13:39 | PDIAF ---
- Diagnosis Diagnosis: Right upper lobe pneumonia secondary to Pseudomonas Code Status: Full Code - Medication Management Discharge Medications: Medications to Continue on Transfer Amiodarone HCl [Pacerone (*)] 200 mg PO BID 06/27/16 [Last Taken 06/27/16] Calcium Acetate [Phoslo (*)] 1,334 mg PO TIDMEAL 06/27/16 [Last Taken 06/26/16] Carvedilol [Coreg (*)] 6.25 mg PO BIDMEAL 06/27/16 [Last Taken 06/27/16] Levalbuterol 1.25 mg [Xopenex 1.25MG Neb (*)] 1 vial IH BID 06/27/16 [Last Taken 06/25/16] Levalbuterol Inhaler [Xopenex Hfa Inhaler (*)] 2 puffs IH BID 06/27/16 [Last Taken 06/27/16] Mometasone/Formoterol [Dulera 200 Mcg/5 Mcg Inhaler] 2 puffs IH BID 06/27/16 [ Last Taken 06/27/16] Multivitamins [Multivitamin (*)] 1 each PO DAILY 06/27/16 [Last Taken 06/27/16] Sodium Polystyrene Sulf [Kionex SPS Powder (*)] 10 gm PO DAILY 06/27/16 [Last Taken 06/25/16] Tiotropium Inhaler [Spiriva Handihaler] 18 mcg IH HS 06/27/16 [Last Taken ] Vancomycin [Vancocin Oral Liquid] 125 mg PO QID 06/27/16 [Last Taken 06/27/16] Zafirlukast [Accolate] 20 mg PO BID 06/27/16 [Last Taken 06/27/16] guaiFENesin [Mucinex 600 MG (*)] 600 mg PO BID 06/27/16 [Last Taken 06/27/16] hydrOXYzine HCL [hydrOXYzine HCL (RX)] 25 mg PO BID 06/27/16 [Last Taken ] predniSONE 5 mg PO DAILY 06/27/16 [Last Taken 06/27/16] traZODone [traZODONE 50MG (*)] 50 mg PO HS PRN 06/27/16 [Last Taken 06/26/16] Residential Antibiotics: Meropenem 500 mg IV daily given after dialysis Residential Antibiotic Stop Date: 07/25/16 Discharge Medications: Refer to the Discharge Home Medication list for PRN reason. PICC Care - Routine: Yes - Orders Diet Recommendation: no restrictions on diet (Patient is allowed a general diet despite did being on dialysis due to poor nutritional status) - Labs/Radiology CBC Date: 07/15/16 (Weekly on Friday) CMP Date: 07/15/16 (Weekly on Friday) Call or Fax Lab and Imaging Results to: Janelle Daniel [phone] - Follow Up Care Current Providers and Referrals: Janelle Daniel MD [Primary Care Provider] - As per Instructions
[2016-07-07] MEDS: MONTELUKAST SODIUM 10 MG TAB PO SCH (17:51)
[2016-07-07] MEDS: TIOTROPIUM INHALER 18 MCG/DOSE 5 DOSE/MDI IH SCH (19:38)
[2016-07-07] MEDS: HYDROCODONE/APAP 5/325 TAB PO PRN (20:34)
[2016-07-07] MEDS: traZODone 50 MG TAB PO PRN (20:35)
[2016-07-08] MEDS: LEVALBUTEROL 1.25 MG/3 ML DEYVIAL IH PRN ×3 (00:01→17:50)
[2016-07-08] MEDS: VANCOMYCIN 125 MG/2.5 ML UDL PO SCH ×5 (05:01→20:20)
[2016-07-08] MEDS: HEPARIN 5,000 UNIT/0.5 ML SYR SC SCH ×3 (05:02→21:01)
[2016-07-08 05:34] LABS: ALANINE AMINOTRANSFERASE 47 IU/L (21-72); ALBUMIN 2.3 g/dL (3.5-5.0); ALKALINE PHOSPHATASE 134 IU/L (38-126); ANION GAP 11 mEq/L (8-16); ASPARTATE AMINOTRANSFERASE 36 IU/L (17-59); BILIRUBIN,TOTAL 1.3 mg/dL (0.1-1.4); BILIRUBIN-CONJUGATED 1.3 mg/dL (0.0-0.5); CALCIUM 8.5 mg/dL (8.5-10.4); CARBON DIOXIDE 27 mEq/l (22-31); CHLORIDE 92 mEq/L (97-110); CREATININE 5.8 mg/dL (0.7-1.3); GLOMERULAR FILTRATION RATE 10; GLUCOSE 88 mg/dL (70-100); POTASSIUM 5.1 mEq/L (3.5-5.2); SODIUM 130 mEq/L (134-144); TOTAL PROTEIN 4.7 g/dL (6.3-8.2)
[2016-07-08] MEDS: LEVALBUTEROL 1.25 MG/3 ML DEYVIAL IH SCH ×2 (06:19→22:00)
[2016-07-08] MEDS: ACETYLCYSTEINE 20% IH/PO 30 ML VIAL IH SCH ×4 (06:20→22:00)
--- NOTE | 2016-07-08 08:06 | SOAPPROG ---
SOAP Progress Note Assessment/Plan: Assessment/Plan: ESRD: failed renal transplant, on HD MWF. - HD done Friday. - Getting HD this am. Hypotension: has recently been a problem, has been tolerating HD on this visit without issues. h/o renal transplant: failed, now off tacrolimus, still on prednisone. Anemia: pt on epo. Hyperkalemia: managed with HD and daily Kionex. NAS: Phos 5.0, continue calcium acetate with meals. Subjective: No acute events overnight. Pt overall feels weak and feels that he needs to be getting more exercise done, needs more rehab. Objective: Vital Signs Temp Pulse Resp BP Pulse Ox 36.9 C 62 16 139/77 H 94 07/08/16 04:00 07/08/16 04:00 07/08/16 04:00 07/08/16 04:00 07/08/16 04:00 Laboratory Results 07/07/16 05:10 07/08/16 05:05 07/07/16 07/08/16 07/09/16 05:59 05:59 05:59 Intake Total 1050 100 Balance 1050 100 PT 13.8 SEC (12.0-15.0) 06/27/16 16:38 INR 1.07 (0.83-1.16) 06/27/16 16:38 General: alert and oriented, no acute distress Eyes; EOMI, PERRL OP: Clear CV: RRR Resp: nonlabored respirations on NC Abd: Soft, NT Ext: no edema BLE Neuro: CN II-XII grossly intact, no asterixis Psych: cooperative, flat affect Access: R IJ tunneled catheter ICD10 Worksheet Patient Problems: Problems Problem Status Onset Weakness Acute Anemia Acute C. difficile diarrhea Acute ~06/18/16 CHF (congestive heart failure) Acute Chronic Disease Mgmt/Transitional Care Acute Chronic Disease Mgmt/Transitional Care Acute Chronic pneumonia Acute Chronic renal failure Acute Dehydration Acute Dialysis complication Acute ESBL (extended spectrum beta-lactamase) producing bacteria infection Acute Extended spectrum beta lactamase (ESBL) resistance Acute 02/15/16 Fever Acute History of pneumonia Acute Hypotension Acute Hypoxemia Acute Hypoxia Acute Leukocytosis Acute Lung infiltrate Acute Mitral valve replaced Acute Palliative care encounter Acute Pneumonia Acute Pneumonia Acute Pneumonia Acute Pneumonia due to Pseudomonas Acute Renal failure Acute Renal transplant recipient Acute Sepsis Acute Severe sepsis Acute Severe sepsis Acute Shortness of breath Acute VRE (vancomycin-resistant Enterococci) Acute 01/11/16 Weakness Acute
[2016-07-08] MEDS: CALCIUM ACETATE 667 MG CAP PO SCH ×3 (08:21→19:05)
[2016-07-08] MEDS: LEVALBUTEROL INHALER 200 PUFFS/15 GM MDI IH SCH ×2 (08:53→22:02)
[2016-07-08] MEDS: Mometasone/Formoterol [Dulera 200 Mcg/5 Mcg Inhaler] IH SCH ×2 (08:54→22:02)
--- NOTE | 2016-07-08 11:07 | HOSPPROG ---
Hospitalist Progress Note Assessment/Plan: # recurrent multilobar pna: s/p bronch with pseudomonas, solis-sensitive - cont merrem per ID renally dosed; 3 weeks total course - BDs, mucinex - IS, flutter valve # IgG defic - receives intermittent IVIG; last dose 06/28 - plan Q4 weeks # ESRD d/t PKD s/p failed graft - HD MWF via HD catheter # mildly elevated LFTs - follow occasionally # a-fib: amio, coreg # htn: coreg, hydralazine # c. dif - vanc PO; day #01/21 for full dose, then bid dosing while on merrem # severe protein calorie malnutrition # debilitation - PT/OT # lovenox # dispo - likely tomorrow to LTAC Subjective: feels very tired today Objective: Vital Signs Temp Pulse Resp BP Pulse Ox 36.9 C 60 24 H 139/77 H 96 07/08/16 04:00 07/08/16 08:40 07/08/16 08:40 07/08/16 04:00 07/08/16 08:40 Laboratory Results 07/07/16 05:10 07/08/16 05:05 07/07/16 07/08/16 07/09/16 05:59 05:59 05:59 Intake Total 1050 100 Balance 1050 100 PT 13.8 SEC (12.0-15.0) 06/27/16 16:38 INR 1.07 (0.83-1.16) 06/27/16 16:[address] Mccoy chart reviewed including Dr Daniel's and DR Jenkins's notes - Physical Exam Constitutional: chronically ill appearing Cardiovascular: regular rate and rhythym, no murmur, rub, or gallop Respiratory: no respiratory distress, inspiratory crackles, rhonchi, No reduced air movement Gastrointestinal: normoactive bowel sounds, soft, non-tender abdomen, no palpable masses ICD10 Worksheet Patient Problems: Problems Problem Status Onset Dehydration Acute Dialysis complication Acute Weakness Acute C. difficile diarrhea Acute ~06/18/16 Chronic Disease Mgmt/Transitional Care Acute Pneumonia Acute Mitral valve replaced Acute Extended spectrum beta lactamase (ESBL) resistance Acute 02/15/16 Renal transplant recipient Acute Chronic renal failure Acute CHF (congestive heart failure) Acute Anemia Acute Hypoxemia Acute Renal failure Acute Shortness of breath Acute Lung infiltrate Acute Hypotension Acute Severe sepsis Acute Pneumonia due to Pseudomonas Acute Hypoxia Acute Sepsis Acute Chronic Disease Mgmt/Transitional Care Acute Fever Acute History of pneumonia Acute VRE (vancomycin-resistant Enterococci) Acute 01/11/16 Palliative care encounter Acute Weakness Acute Chronic pneumonia Acute ESBL (extended spectrum beta-lactamase) producing bacteria infection Acute Leukocytosis Acute Pneumonia Acute Severe sepsis Acute Pneumonia Acute
--- NOTE | 2016-07-08 11:14 | PCMIDPN ---
Assessment/Plan: Assessment/Plan: * Recurrent pseudomonal pneumonia which is multilobar: Isolate remains solis susceptible to typical anti pseudomonal agents. Planning 3 weeks of meropenem dosed daily with doses after dialysis on dialysis days. Will review with Dr. Daniel as may consider inhaled tobramycin post completion of meropenem. Suspect may have significant underlying decrease in mucus ciliary clearance. * C difficile colitis: Continue oral vancomycin times 14 days with treatment doses at four times daily (# 01/21). Plan twice daily suppression thereafter for 1 week post completion of meropenem. * Hypogammaglobulinemia: Likely will require monthly replacement. 07/08/16 11:11 Subjective: Patient feels fatigued with dyspnea occurring with minimal exertion. Intermittent cough. No diarrhea. Objective: Vital Signs Temp Pulse Resp BP Pulse Ox 36.9 C 60 24 H 139/77 H 96 07/08/16 04:00 07/08/16 08:40 07/08/16 08:40 07/08/16 04:00 07/08/16 08:40 Laboratory Results 07/07/16 05:10 07/08/16 05:05 07/07/16 07/08/16 07/09/16 05:59 05:59 05:59 Intake Total 1050 100 Output Total 1500 Balance 1050 100 -1500 Meropenem # 5 BAL with growth of Pseudomonas which is solis susceptible to anti pseudomonal agents - Physical Exam General Appearance: alert, no apparent distress EENT: No scleral icterus, No thrush Respiratory: crackles (Right base), No respiratory distress Cardiac/Chest: regular rate, rhythm Abdomen: non-tender ICD10 Worksheet Patient Problems: Problems Problem Status Onset Weakness Acute Anemia Acute C. difficile diarrhea Acute ~06/18/16 CHF (congestive heart failure) Acute Chronic Disease Mgmt/Transitional Care Acute Chronic Disease Mgmt/Transitional Care Acute Chronic pneumonia Acute Chronic renal failure Acute Dehydration Acute Dialysis complication Acute ESBL (extended spectrum beta-lactamase) producing bacteria infection Acute Extended spectrum beta lactamase (ESBL) resistance Acute 02/15/16 Fever Acute History of pneumonia Acute Hypotension Acute Hypoxemia Acute Hypoxia Acute Leukocytosis Acute Lung infiltrate Acute Mitral valve replaced Acute Palliative care encounter Acute Pneumonia Acute Pneumonia Acute Pneumonia Acute Pneumonia due to Pseudomonas Acute Renal failure Acute Renal transplant recipient Acute Sepsis Acute Severe sepsis Acute Severe sepsis Acute Shortness of breath Acute VRE (vancomycin-resistant Enterococci) Acute 01/11/16 Weakness Acute
[2016-07-08] MEDS: MEROPENEM IV SCH (11:17)
[2016-07-08] MEDS: NS IV SCH (11:17)
[2016-07-08] MEDS: CARVEDILOL 6.25 MG TAB PO SCH ×2 (11:21→18:31)
[2016-07-08] MEDS: MULTIVITAMINS 1 EACH TAB PO SCH (11:21)
[2016-07-08] MEDS: guaiFENesin 600 MG TAB.ER PO SCH ×2 (11:22→20:20)
[2016-07-08] MEDS: predniSONE 5 MG TAB PO SCH (11:23)
[2016-07-08] MEDS: AMIODARONE HCL 200 MG TAB PO SCH ×2 (11:23→20:20)
[2016-07-08] MEDS: hydrOXYzine HCL 25 MG TAB PO SCH ×2 (11:24→20:20)
[2016-07-08] MEDS: SODIUM POLYSTYRENE SULF 454 GM POWDER PO SCH (11:36)
[2016-07-08] MEDS: ACETAMINOPHEN 325 MG TAB PO PRN (13:00)
[2016-07-08] MEDS: MONTELUKAST SODIUM 10 MG TAB PO SCH (18:31)
[2016-07-08] MEDS ORDERED: HEPARIN 50,000 UNIT/10 ML VIAL ONE (18:49)
[2016-07-08] MEDS: traZODone 50 MG TAB PO PRN (20:20)
[2016-07-08] MEDS: TIOTROPIUM INHALER 18 MCG/DOSE 5 DOSE/MDI IH SCH (22:01)
[2016-07-09] MEDS: ACETYLCYSTEINE 20% IH/PO 30 ML VIAL IH SCH ×3 (04:50→16:01)
[2016-07-09] MEDS: LEVALBUTEROL 1.25 MG/3 ML DEYVIAL IH PRN ×3 (04:51→16:01)
[2016-07-09] MEDS: HEPARIN 5,000 UNIT/0.5 ML SYR SC SCH ×3 (05:03→22:04)
[2016-07-09] MEDS: VANCOMYCIN 125 MG/2.5 ML UDL PO SCH ×4 (05:09→21:09)
[2016-07-09] MEDS: ACETAMINOPHEN 325 MG TAB PO PRN (05:09)
[2016-07-09 05:50] LABS: ALBUMIN 2.4 g/dL (3.5-5.0); ANION GAP 8 mEq/L (8-16); CARBON DIOXIDE 31 mEq/l (22-31); CHLORIDE 96 mEq/L (97-110); CREATININE 3.9 mg/dL (0.7-1.3); GLOMERULAR FILTRATION RATE 16; GLUCOSE 73 mg/dL (70-100); POTASSIUM 4.5 mEq/L (3.5-5.2); SODIUM 135 mEq/L (134-144)
[2016-07-09] MEDS: CALCIUM ACETATE 667 MG CAP PO SCH ×3 (07:58→17:40)
[2016-07-09] MEDS: CARVEDILOL 6.25 MG TAB PO SCH ×2 (07:58→17:40)
[2016-07-09] MEDS: LEVALBUTEROL 1.25 MG/3 ML DEYVIAL IH SCH ×2 (09:10→21:37)
[2016-07-09] MEDS: LEVALBUTEROL INHALER 200 PUFFS/15 GM MDI IH SCH ×2 (09:15→21:38)
[2016-07-09] MEDS: Mometasone/Formoterol [Dulera 200 Mcg/5 Mcg Inhaler] IH SCH ×2 (09:15→21:38)
[2016-07-09] MEDS: MULTIVITAMINS 1 EACH TAB PO SCH (09:28)
[2016-07-09] MEDS: AMIODARONE HCL 200 MG TAB PO SCH ×2 (09:28→21:10)
[2016-07-09] MEDS: hydrOXYzine HCL 25 MG TAB PO SCH ×2 (09:28→21:09)
[2016-07-09] MEDS: predniSONE 5 MG TAB PO SCH (09:28)
[2016-07-09] MEDS: guaiFENesin 600 MG TAB.ER PO SCH ×2 (09:28→21:09)
[2016-07-09] MEDS: SODIUM POLYSTYRENE SULF 454 GM POWDER PO SCH (09:29)
[2016-07-09] MEDS: NS IV SCH (09:31)
[2016-07-09] MEDS: MEROPENEM IV SCH (09:31)
--- NOTE | 2016-07-09 11:57 | SOAPPROG ---
SOAP Progress Note Assessment/Plan: Assessment: 1. Recurrent Pseudomonal Pneumonia ID seeing. On [facility]. 2. ESRD HD tomorrow. 3. Affect more depressed. Plan: 07/09/16 11:55 Subjective: Seems a bit depressed Objective: Vital Signs Temp Pulse Resp BP Pulse Ox 36.6 C 61 18 111/59 L 98 07/09/16 11:41 07/09/16 11:41 07/09/16 11:41 07/09/16 11:41 07/09/16 11:41 Laboratory Results 07/07/16 05:10 07/09/16 05:14 07/08/16 07/09/16 07/10/16 05:59 05:59 05:59 Intake Total 100 Output Total 1500 Balance 100 -1500 PT 13.8 SEC (12.0-15.0) 06/27/16 16:38 INR 1.07 (0.83-1.16) 06/27/16 16:38 Physical Exam - Physical Exam General Appearance: mild distress Neck: other (cath tunnel ok) Respiratory: crackles (throughout bilaterally) Cardiac/Chest: regular rate, rhythm Extremities: normal inspection Neuro/Psych: alert, depressed affect ICD10 Worksheet Patient Problems: Problems Problem Status Onset Weakness Acute Anemia Acute C. difficile diarrhea Acute ~06/18/16 CHF (congestive heart failure) Acute Chronic Disease Mgmt/Transitional Care Acute Chronic Disease Mgmt/Transitional Care Acute Chronic pneumonia Acute Chronic renal failure Acute Dehydration Acute Dialysis complication Acute ESBL (extended spectrum beta-lactamase) producing bacteria infection Acute Extended spectrum beta lactamase (ESBL) resistance Acute 02/15/16 Fever Acute History of pneumonia Acute Hypotension Acute Hypoxemia Acute Hypoxia Acute Leukocytosis Acute Lung infiltrate Acute Mitral valve replaced Acute Palliative care encounter Acute Pneumonia Acute Pneumonia Acute Pneumonia Acute Pneumonia due to Pseudomonas Acute Renal failure Acute Renal transplant recipient Acute Sepsis Acute Severe sepsis Acute Severe sepsis Acute Shortness of breath Acute VRE (vancomycin-resistant Enterococci) Acute 01/11/16 Weakness Acute
--- NOTE | 2016-07-09 15:11 | PCMIDPN ---
Assessment/Plan: # RUL PNA secondary PsA. minimal improvement in resp sx. Now with ongoing fever and malaise and CXR yesterday with worsening LLL infiltrate. Still higher than baseline O2 requirements at 4L. Other potential causes of fever include HD cath infection, drug fever --continue meropenem --NPO midnight, if not feeling well tomorrow will bronch LLL, Discussed with Dr. 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 Objective: Vital Signs Temp Pulse Resp BP Pulse Ox 36.3 C 68 24 H 120/63 99 07/09/16 14:59 07/09/16 14:59 07/09/16 14:59 07/09/16 14:59 07/09/16 14:59 Microbiology 07/03/16 14:10 Mycobacterial Smear ([facility]) - Final Lung Right Upper Lobe - Bronchial Washings Laboratory Results 07/07/16 05:10 07/09/16 05:14 07/08/16 07/09/16 07/10/16 05:59 05:59 05:59 Intake Total 100 Output Total 1500 Balance 100 -1500 - Physical Exam General Appearance: no apparent distress, thin, non-toxic EENT: pale conjunctiva Respiratory: crackles (B bases), wheezing (scattered) Neck: supple Cardiac/Chest: regular rate, rhythm Extremities: other (R arm with healed incision, no swelling or erythema), No pedal edema Skin: No rash Neuro/Psych: alert, oriented x 3, depressed affect - Line/s Mckoy Lines: No drainage, No erythema LUE PICC Lines: No drainage, No erythema - Time Spent With Patient Time Spent with Patient: greater than 35 minutes Time Spent with Patient: Greater than 35 minutes spent on this patients care, greater than 50% of time spent counseling, educating, and coordinating care regarding the above mentioned plan. ICD10 Worksheet Patient Problems: Problems Problem Status Onset Weakness Acute Anemia Acute C. difficile diarrhea Acute ~06/18/16 CHF (congestive heart failure) Acute Chronic Disease Mgmt/Transitional Care Acute Chronic Disease Mgmt/Transitional Care Acute Chronic pneumonia Acute Chronic renal failure Acute Dehydration Acute Dialysis complication Acute ESBL (extended spectrum beta-lactamase) producing bacteria infection Acute Extended spectrum beta lactamase (ESBL) resistance Acute 02/15/16 Fever Acute History of pneumonia Acute Hypotension Acute Hypoxemia Acute Hypoxia Acute Leukocytosis Acute Lung infiltrate Acute Mitral valve replaced Acute Palliative care encounter Acute Pneumonia Acute Pneumonia Acute Pneumonia Acute Pneumonia due to Pseudomonas Acute Renal failure Acute Renal transplant recipient Acute Sepsis Acute Severe sepsis Acute Severe sepsis Acute Shortness of breath Acute VRE (vancomycin-resistant Enterococci) Acute 01/11/16 Weakness Acute
[2016-07-09] MEDS ORDERED: LEVALBUTEROL 1.25 MG/3 ML DEYVIAL ONE (15:31)
--- NOTE | 2016-07-09 16:52 | HOSPPROG ---
Hospitalist Progress Note Assessment/Plan: # recurrent multilobar pna: s/p bronch with pseudomonas, solis-sensitive - fever yesterday - will consider repeat bronch tomorrow - cont merrem per ID renally dosed - BDs, mucinex - IS, flutter valve # IgG defic - receives intermittent IVIG; last dose 06/28 - plan Q4 weeks # ESRD d/t PKD s/p failed graft - HD MWF via HD catheter # mildly elevated LFTs - follow occasionally # a-fib: amio, coreg # htn: coreg, hydralazine # c. dif - vanc PO; day #02/20 for QID dose, then BID dosing until 1 week after completing merrem # severe protein calorie malnutrition # debilitation - PT/OT # lovenox Subjective: still feels weak; breathing worse than before; fever yesterday Objective: Vital Signs Temp Pulse Resp BP Pulse Ox 36.3 C 66 22 H 120/63 95 07/09/16 14:59 07/09/16 16:00 07/09/16 16:00 07/09/16 14:59 07/09/16 16:00 Microbiology 07/03/16 14:10 Mycobacterial Smear ([facility]) - Final Lung Right Upper Lobe - Bronchial Washings Laboratory Results 07/07/16 05:10 07/09/16 05:14 07/08/16 07/09/16 07/10/16 05:59 05:59 05:59 Intake Total 100 Output Total 1500 Balance 100 -1500 PT 13.8 SEC (12.0-15.0) 06/27/16 16:38 INR 1.07 (0.83-1.16) 06/27/16 16:38 CXR personally reviewed- ongoing diffuse pna, worse on left Discussed with Dr. Daniel, possible bronch tomorrow - Physical Exam Constitutional: chronically ill appearing Cardiovascular: regular rate and rhythym, systolic murmur, No irregularly irregular, No diastolic murmur Respiratory: no respiratory distress, inspiratory crackles (diffuse), No clear to auscultation, No reduced air movement, No bronchial breath sounds Gastrointestinal: normoactive bowel sounds, soft, non-tender abdomen, no palpable masses ICD10 Worksheet Patient Problems: Problems Problem Status Onset Dehydration Acute Dialysis complication Acute Weakness Acute C. difficile diarrhea Acute ~06/18/16 Chronic Disease Mgmt/Transitional Care Acute Pneumonia Acute Mitral valve replaced Acute Extended spectrum beta lactamase (ESBL) resistance Acute 02/15/16 Renal transplant recipient Acute Chronic renal failure Acute CHF (congestive heart failure) Acute Anemia Acute Hypoxemia Acute Renal failure Acute Shortness of breath Acute Lung infiltrate Acute Hypotension Acute Severe sepsis Acute Pneumonia due to Pseudomonas Acute Hypoxia Acute Sepsis Acute Chronic Disease Mgmt/Transitional Care Acute Fever Acute History of pneumonia Acute VRE (vancomycin-resistant Enterococci) Acute 01/11/16 Palliative care encounter Acute Weakness Acute Chronic pneumonia Acute ESBL (extended spectrum beta-lactamase) producing bacteria infection Acute Leukocytosis Acute Pneumonia Acute Severe sepsis Acute Pneumonia Acute
[2016-07-09] MEDS: MONTELUKAST SODIUM 10 MG TAB PO SCH (17:40)
--- NOTE | 2016-07-09 18:30 | SOAPPROG ---
SOAP Progress Note Assessment/Plan: Assessment: Pneumonia: Multilobar, now with increased fevers again and increased infiltrates on x-ray, primarily at the right base. likely bacterial, has hypogammaglobulinemia, recently had PsA, possibly still present. Repeat bronchoscopy is being requested for repeat cultures, possibly tomorrow. Will discuss with Dr. Daniel Hypogammaglobulinemia: Dosed with IVIG last week CKD: For on regularly scheduled HD C.Diff Plan: Continue current care. Will make a decision about repeat bronchoscopy for cultures tomorrow in consultation with Dr. Daniel. Discussed with the patient. Patient will be NPO tonight. Subjective: Does not feel great, fatigue. Has some shortness of breath, coughing. Febrile to 38 today. Objective: Vital Signs Temp Pulse Resp BP Pulse Ox 36.3 C 66 22 H 120/63 95 07/09/16 14:59 07/09/16 16:00 07/09/16 16:00 07/09/16 14:59 07/09/16 16:00 Microbiology 07/03/16 14:10 Mycobacterial Smear ([facility]) - Final Lung Right Upper Lobe - Bronchial Washings Laboratory Results 07/07/16 05:10 07/09/16 05:14 07/08/16 07/09/16 07/10/16 05:59 05:59 05:59 Intake Total 100 115 Output Total 1500 Balance 100 -1500 115 PT 13.8 SEC (12.0-15.0) 06/27/16 16:38 INR 1.07 (0.83-1.16) 06/27/16 16:38 CXR yesterday. Increased infiltrate at the right base. Possibly some increased the left as well? Small pleural effusions bilaterally Physical Exam - Physical Exam General Appearance: alert, no apparent distress, thin, other (Up in chair) EENT: other (Nasal cannula 4 L) Neck: normal inspection Respiratory: decreased breath sounds, rales (By basilar rales), rhonchi (At the bases with cough), No wheezing Cardiac/Chest: regular rate, rhythm Abdomen: normal bowel sounds, non-tender, soft Skin: warm/dry, pallor Extremities: pedal edema (Trace) Neuro/Psych: no motor/sensory deficits, No cognition abnormalities ICD10 Worksheet Patient Problems: Problems Problem Status Onset Dehydration Acute Dialysis complication Acute Weakness Acute C. difficile diarrhea Acute ~06/18/16 Chronic Disease Mgmt/Transitional Care Acute Pneumonia Acute Mitral valve replaced Acute Extended spectrum beta lactamase (ESBL) resistance Acute 02/15/16 Renal transplant recipient Acute Chronic renal failure Acute CHF (congestive heart failure) Acute Anemia Acute Hypoxemia Acute Renal failure Acute Shortness of breath Acute Lung infiltrate Acute Hypotension Acute Severe sepsis Acute Pneumonia due to Pseudomonas Acute Hypoxia Acute Sepsis Acute Chronic Disease Mgmt/Transitional Care Acute Fever Acute History of pneumonia Acute VRE (vancomycin-resistant Enterococci) Acute 01/11/16 Palliative care encounter Acute Weakness Acute Chronic pneumonia Acute ESBL (extended spectrum beta-lactamase) producing bacteria infection Acute Leukocytosis Acute Pneumonia Acute Severe sepsis Acute Pneumonia Acute
[2016-07-09] MEDS: traZODone 50 MG TAB PO PRN (21:09)
[2016-07-09] MEDS: TIOTROPIUM INHALER 18 MCG/DOSE 5 DOSE/MDI IH SCH (21:38)
[2016-07-10] MEDS: ACETYLCYSTEINE 20% IH/PO 30 ML VIAL IH SCH ×6 (01:07→21:08)
[2016-07-10] MEDS: VANCOMYCIN 125 MG/2.5 ML UDL PO SCH ×4 (05:09→21:55)
[2016-07-10] MEDS: HEPARIN 5,000 UNIT/0.5 ML SYR SC SCH ×3 (05:28→19:37)
[2016-07-10] MEDS: LEVALBUTEROL 1.25 MG/3 ML DEYVIAL IH PRN ×2 (05:30→15:31)
[2016-07-10 05:49] LABS: ALBUMIN 2.3 g/dL (3.5-5.0); ANION GAP 11 mEq/L (8-16); CALCIUM 8.3 mg/dL (8.5-10.4); CARBON DIOXIDE 27 mEq/l (22-31); CHLORIDE 93 mEq/L (97-110); CREATININE 4.9 mg/dL (0.7-1.3); GLOMERULAR FILTRATION RATE 12; GLUCOSE 83 mg/dL (70-100); POTASSIUM 4.7 mEq/L (3.5-5.2); SODIUM 131 mEq/L (134-144)
[2016-07-10 07:02] LABS: % IMMATURE GRANULYOCYTES 0.6 % (0.0-1.1); ABSOLUTE IMMATURE GRANULOCYTES 0.04 10^3/uL (0.00-0.10); ADD DIFF? NO; ADD MORPH? NO; ADD SCAN? NO; ATYPICAL LYMPHOCYTE FLAG 0 (0-99); FRAGMENT RBC FLAG 0 (0-99); HEMATOCRIT 25.7 % (40.0-51.0); HEMOGLOBIN 8.1 g/dL (13.7-17.5); LEFT SHIFT FLG 0 (0-99); LIPEMIA HEMOLYSIS FLAG 80 (0-99); MEAN CELL HEMOGLOBIN 31.2 pg (27.9-34.1); MEAN CELL HEMOGLOBIN CONCENTR. 31.5 g/dL (32.4-36.7); MEAN CELL VOLUME 98.8 fL (81.5-99.8); MEAN PLATELET VOLUME 10.4 fL (8.7-11.7); PLATELET CLUMPS FLAG 10 (0-99); PLATELET COUNT 121 10^3/uL (150-400); RED CELL DISTRIBUTION WIDTH 14.4 % (11.5-15.2)
--- NOTE | 2016-07-10 08:14 | PCMIDPN ---
Assessment/Plan: # RUL PNA secondary PsA. minimal improvement in resp sx. Continued malaise, SOB , cough and CXR 2 days ago worsening LLL infiltrate. Higher than baseline O2 requirements at 4L. Other potential causes of fever include HD cath infection, drug fever. 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 Sonny Larkin Subjective: still feels SOB, malaise 1 BM/day Mild oral pain Objective: Vital Signs Temp Pulse Resp BP Pulse Ox 37.1 C 64 16 132/67 H 95 07/10/16 04:00 07/10/16 05:32 07/10/16 05:32 07/10/16 04:00 07/10/16 05:32 Microbiology 07/03/16 14:10 Mycobacterial Smear ([facility]) - Final Lung Right Upper Lobe - Bronchial Washings Laboratory Results 07/10/16 05:05 07/10/16 05:05 07/09/16 07/10/16 07/11/16 05:59 05:59 05:59 Intake Total 115 Output Total 1500 Balance -1500 115 - Physical Exam General Appearance: alert, thin EENT: thrush Respiratory: crackles, No accessory muscle use Neck: supple Cardiac/Chest: regular rate, rhythm Extremities: No pedal edema Abdomen: non-tender, soft Skin: pallor, No rash Neuro/Psych: alert, oriented x 3, depressed affect - Line/s Mckoy Lines: other (Right), No drainage, No erythema LUE PICC Lines: No drainage, No erythema ICD10 Worksheet Patient Problems: Problems Problem Status Onset Weakness Acute Anemia Acute C. difficile diarrhea Acute ~06/18/16 CHF (congestive heart failure) Acute Chronic Disease Mgmt/Transitional Care Acute Chronic Disease Mgmt/Transitional Care Acute Chronic pneumonia Acute Chronic renal failure Acute Dehydration Acute Dialysis complication Acute ESBL (extended spectrum beta-lactamase) producing bacteria infection Acute Extended spectrum beta lactamase (ESBL) resistance Acute 02/15/16 Fever Acute History of pneumonia Acute Hypotension Acute Hypoxemia Acute Hypoxia Acute Leukocytosis Acute Lung infiltrate Acute Mitral valve replaced Acute Palliative care encounter Acute Pneumonia Acute Pneumonia Acute Pneumonia Acute Pneumonia due to Pseudomonas Acute Renal failure Acute Renal transplant recipient Acute Sepsis Acute Severe sepsis Acute Severe sepsis Acute Shortness of breath Acute VRE (vancomycin-resistant Enterococci) Acute 01/11/16 Weakness Acute
[2016-07-10] MEDS: LEVALBUTEROL 1.25 MG/3 ML DEYVIAL IH SCH ×2 (08:39→21:08)
[2016-07-10] MEDS: LEVALBUTEROL INHALER 200 PUFFS/15 GM MDI IH SCH ×2 (08:54→21:09)
[2016-07-10] MEDS: Mometasone/Formoterol [Dulera 200 Mcg/5 Mcg Inhaler] IH SCH ×2 (08:54→21:09)
[2016-07-10] MEDS: MEROPENEM IV SCH (09:28)
[2016-07-10] MEDS: NS IV SCH (09:28)
[2016-07-10] MEDS: MULTIVITAMINS 1 EACH TAB PO SCH (09:37)
[2016-07-10] MEDS: CARVEDILOL 6.25 MG TAB PO SCH ×2 (09:38→21:55)
[2016-07-10] MEDS: SODIUM POLYSTYRENE SULF 454 GM POWDER PO SCH (09:38)
[2016-07-10] MEDS: CALCIUM ACETATE 667 MG CAP PO SCH ×3 (09:38→21:52)
[2016-07-10] MEDS: predniSONE 5 MG TAB PO SCH (09:38)
[2016-07-10] MEDS: AMIODARONE HCL 200 MG TAB PO SCH ×2 (09:39→21:55)
[2016-07-10] MEDS: hydrOXYzine HCL 25 MG TAB PO SCH ×2 (09:39→21:54)
[2016-07-10] MEDS: guaiFENesin 600 MG TAB.ER PO SCH ×2 (09:39→21:54)
[2016-07-10] MEDS: NYSTATIN SUSP 500000 UNIT/5 ML UDCUP PO SCH ×3 (12:44→21:55)
--- NOTE | 2016-07-10 15:43 | HOSPPROG ---
Hospitalist Progress Note Assessment/Plan: 66 yo M w complex history. # recurrent multilobar pna: s/p bronch with pseudomonas, solis-sensitive - fever yesterday - will consider repeat bronch tomorrow - cont merrem per ID renally dosed - BDs, mucinex - IS, flutter valve # IgG defic - receives intermittent IVIG; last dose 06/28 - plan Q4 weeks # ESRD d/t PKD s/p failed graft - HD MWF via HD catheter # mildly elevated LFTs - follow occasionally # a-fib: amio, coreg # htn: coreg, hydralazine # c. dif - vanc PO; day #02/20 for QID dose, then BID dosing until 1 week after completing merrem # severe protein calorie malnutrition # debilitation - PT/OT # lovenox Subjective: case discussed w dr gama. images and records reviewed/ interpreted by me Objective: Vital Signs Temp Pulse Resp BP Pulse Ox 37.1 C 66 16 118/62 99 07/10/16 12:00 07/10/16 12:00 07/10/16 12:00 07/10/16 12:00 07/10/16 12:00 Microbiology 07/03/16 14:10 Mycobacterial Smear ([facility]) - Final Lung Right Upper Lobe - Bronchial Washings Laboratory Results 07/10/16 05:05 07/10/16 05:05 07/09/16 07/10/16 07/11/16 05:59 05:59 05:59 Intake Total 115 Output Total 1500 Balance -1500 115 PT 13.8 SEC (12.0-15.0) 06/27/16 16:38 INR 1.07 (0.83-1.16) 06/27/16 16:38 - Physical Exam Constitutional: no apparent distress, appears nourished Eyes: PERRL, anicteric sclera Ears, Nose, Mouth, Throat: moist mucous membranes, hearing normal Cardiovascular: regular rate and rhythym, no murmur, rub, or gallop Respiratory: no respiratory distress, no rales or rhonchi Gastrointestinal: normoactive bowel sounds, soft, non-tender abdomen, no palpable masses Genitourinary: No mercer in urethra Skin: warm, normal color Musculoskeletal: full muscle strength, no muscle tenderness Neurologic: AAOx3, sensation intact bilaterally Psychiatric: interacting appropriately, not anxious ICD10 Worksheet Patient Problems: Problems Problem Status Onset Weakness Acute Anemia Acute C. difficile diarrhea Acute ~06/18/16 CHF (congestive heart failure) Acute Chronic Disease Mgmt/Transitional Care Acute Chronic Disease Mgmt/Transitional Care Acute Chronic pneumonia Acute Chronic renal failure Acute Dehydration Acute Dialysis complication Acute ESBL (extended spectrum beta-lactamase) producing bacteria infection Acute Extended spectrum beta lactamase (ESBL) resistance Acute 02/15/16 Fever Acute History of pneumonia Acute Hypotension Acute Hypoxemia Acute Hypoxia Acute Leukocytosis Acute Lung infiltrate Acute Mitral valve replaced Acute Palliative care encounter Acute Pneumonia Acute Pneumonia Acute Pneumonia Acute Pneumonia due to Pseudomonas Acute Renal failure Acute Renal transplant recipient Acute Sepsis Acute Severe sepsis Acute Severe sepsis Acute Shortness of breath Acute VRE (vancomycin-resistant Enterococci) Acute 01/11/16 Weakness Acute
[2016-07-10] MEDS: ACETAMINOPHEN 325 MG TAB PO PRN (16:01)
[2016-07-10] MEDS ORDERED: MIDAZOLAM 2 MG/2 ML VIAL ONE (16:21)
[2016-07-10] MEDS ORDERED: LIDOCAINE 2% JELLY 5 ML TUBE ONE ×2 (16:21→17:25)
[2016-07-10] MEDS ORDERED: fentaNYL 100 MCG/2 ML INJ ONE (16:22)
[2016-07-10] MEDS ORDERED: LIDOCAINE 1% 30 ML SDV ONE (16:22)
--- NOTE | 2016-07-10 17:19 | SOAPPROG ---
SOAP Progress Note Assessment/Plan: Assessment: 1. ESRD. HD tonight after bronch on MWF schedule. 2. Hyperkalemia. On daily kionex. K restriction lifted. K 4.7. 3. Lethargy, fevers. Given purulent secretions and new/worsening infiltrate on chest CT scan pulm source seems probable. Has pseudomonas pneumonia. Repeat bronchoscopy tonight. Plan: 07/03/16 16:49 07/03/16 16:53 07/04/16 11:53 07/10/16 17:17 07/10/16 17:18 Subjective: Not doing well today. Seems depressed about his situation. Objective: Vital Signs Temp Pulse Resp BP Pulse Ox 37.5 C 70 14 102/47 L 92 07/10/16 15:52 07/10/16 15:52 07/10/16 15:52 07/10/16 15:52 07/10/16 15:52 Microbiology 07/03/16 14:10 Mycobacterial Smear ([facility]) - Final Lung Right Upper Lobe - Bronchial Washings Laboratory Results 07/10/16 05:05 07/10/16 05:05 07/09/16 07/10/16 07/11/16 05:59 05:59 05:59 Intake Total 115 Output Total 1500 Balance -1500 115 PT 13.8 SEC (12.0-15.0) 06/27/16 16:38 INR 1.07 (0.83-1.16) 06/27/16 16:38 Frail, alert, depressed affect RRR, no m/g/r Coarse breath sounds Abdom soft, nt 2+ LE pitting edema ICD10 Worksheet Patient Problems: Problems Problem Status Onset Dehydration Acute Dialysis complication Acute Weakness Acute C. difficile diarrhea Acute ~06/18/16 Chronic Disease Mgmt/Transitional Care Acute Pneumonia Acute Mitral valve replaced Acute Extended spectrum beta lactamase (ESBL) resistance Acute 02/15/16 Renal transplant recipient Acute Chronic renal failure Acute CHF (congestive heart failure) Acute Anemia Acute Hypoxemia Acute Renal failure Acute Shortness of breath Acute Lung infiltrate Acute Hypotension Acute Severe sepsis Acute Pneumonia due to Pseudomonas Acute Hypoxia Acute Sepsis Acute Chronic Disease Mgmt/Transitional Care Acute Fever Acute History of pneumonia Acute VRE (vancomycin-resistant Enterococci) Acute 01/11/16 Palliative care encounter Acute Weakness Acute Chronic pneumonia Acute ESBL (extended spectrum beta-lactamase) producing bacteria infection Acute Leukocytosis Acute Pneumonia Acute Severe sepsis Acute Pneumonia Acute
[2016-07-10] MEDS ORDERED: LIDOCAINE 2% 5 ML SDV ONE (17:24)
[2016-07-10] MEDS ORDERED: EPINEPHrine 1 MG/10 ML SYR IVP ONE (17:24)
[2016-07-10] MEDS ORDERED: LIDOCAINE HCL 4% TOPICAL SOLN 50ML ONE (17:24)
[2016-07-10] MEDS ORDERED: ALBUTEROL 3 ML DEYVIAL ONE (17:24)
[2016-07-10] MEDS ORDERED: NALOXONE HCL 0.4 MG/ML INJ ONE (18:03)
[2016-07-10] MEDS ORDERED: FLUMAZENIL 0.5 MG/5 ML MDV IVP ONE (18:03)
[2016-07-10] MEDS: TIOTROPIUM INHALER 18 MCG/DOSE 5 DOSE/MDI IH SCH (21:09)
[2016-07-10] MEDS: MONTELUKAST SODIUM 10 MG TAB PO SCH (21:54)
[2016-07-11] MEDS: CARVEDILOL 6.25 MG TAB PO SCH ×3 (00:55→18:48)
[2016-07-11] MEDS: HEPARIN 5,000 UNIT/0.5 ML SYR SC SCH ×3 (04:05→21:22)
--- NOTE | 2016-07-11 04:20 | GPN ---
[f rep st] PROCEDURE NOTE DATE OF PROCEDURE: 07/10/2016 PROCEDURE PERFORMED: Therapeutic and Diagnostic Bronchoscopy. REASON FOR PROCEDURE: Increasing infiltrates and fevers in a patient with recurrent pneumonia, hypogammaglobulinemia and chronic renal failure. Repeat bronchoscopy for cultures is requested by Dr. Daniel. PROCEDURE NOTE: The procedure was done in the endoscopy unit. A negative pressure room was used. N95 masks were worn. Appropriate time-out was performed. Intravenous conscious sedation included 4 mg of Versed and 100 mcg of fentanyl. Topical anesthesia was accomplished with approximately 20 mL of 1 % lidocaine. The fiberoptic bronchoscope was passed via a bite block orally into the larynx. The vocal cords were identified and cannulated. The bronchoscope was advanced into the trachea and in the lower tracheobronchial tree bilaterally. There were large amounts of secretions found bilaterally. These were somewhat purulent, relatively thick, and appeared to be somewhat more plentiful on the right side compared to the left side. Bronchial washes and bronchoalveolar lavage were performed to remove the mucus and mucus plugging. Samples from both sides were combined. Towards the end of the procedure, most of the mucus was removed; however, with coughing, some mucus would come up from distal pulmonary segments, essentially all lobes. The bronchial mucosa was friable and bled easily with scope trauma from the procedure; however, significant blood loss was not seen, less than 5 cc total. The patient did cough intermittently throughout the procedure. Once the airways were cleaned from mucus, sterile brush sample specimens with a protective brush were obtained separately from the right lower lobe and from the left lower lobe, and sent for aerobic cultures separately from these 2 locations. The wash/lavage sample was sent for aerobic cultures, fungal and AFB cultures, PCP stain, and cytologies. The patient tolerated the procedure well. Vital signs and oxygen saturations on supplemental oxygen remained normal throughout the procedure. IMPRESSION: 1. Significant purulent secretions were found bilaterally. 2. Endobronchial anatomy was normal. 3. Sterile brush biopsy/cultures were obtained separately from both lower lobes in the bilateral bronchoalveolar lavage sample was obtained. /[id number]/MODL MTDD
[2016-07-11] MEDS: VANCOMYCIN 125 MG/2.5 ML UDL PO SCH ×4 (04:37→21:21)
[2016-07-11] MEDS: ACETAMINOPHEN 325 MG TAB PO PRN ×2 (04:37→15:47)
[2016-07-11] MEDS: NYSTATIN SUSP 500000 UNIT/5 ML UDCUP PO SCH ×4 (04:37→21:21)
[2016-07-11 05:09] LABS: ALBUMIN 2.4 g/dL (3.5-5.0); ANION GAP 11 mEq/L (8-16); CALCIUM 8.2 mg/dL (8.5-10.4); CARBON DIOXIDE 28 mEq/l (22-31); CHLORIDE 94 mEq/L (97-110); CREATININE 6.5 mg/dL (0.7-1.3); GLOMERULAR FILTRATION RATE 9; GLUCOSE 79 mg/dL (70-100); POTASSIUM 5.3 mEq/L (3.5-5.2); SODIUM 133 mEq/L (134-144)
[2016-07-11] MEDS: ACETYLCYSTEINE 20% IH/PO 30 ML VIAL IH SCH ×4 (05:24→21:36)
[2016-07-11] MEDS: LEVALBUTEROL 1.25 MG/3 ML DEYVIAL IH PRN ×3 (05:24→17:43)
[2016-07-11] MEDS: Mometasone/Formoterol [Dulera 200 Mcg/5 Mcg Inhaler] IH SCH ×2 (09:08→21:41)
[2016-07-11] MEDS: LEVALBUTEROL INHALER 200 PUFFS/15 GM MDI IH SCH ×2 (09:08→21:40)
[2016-07-11] MEDS: LEVALBUTEROL 1.25 MG/3 ML DEYVIAL IH SCH ×2 (09:11→21:36)
--- NOTE | 2016-07-11 10:06 | SOAPPROG ---
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 07/11/16 10:03 Subjective: stable on dialysis Objective: Vital Signs Temp Pulse Resp BP Pulse Ox 37.2 C 59 L 18 97/52 L 96 07/11/16 07:50 07/11/16 07:50 07/11/16 07:50 07/11/16 07:50 07/11/16 07:50 Microbiology 07/10/16 18:35 Gram Stain - Final Lung Bilateral - Bronchial Washings Laboratory Results 07/10/16 05:05 07/11/16 04:35 07/10/16 07/11/16 07/12/16 05:59 05:59 05:59 Intake Total 115 0 Balance 115 0 PT 13.8 SEC (12.0-15.0) 06/27/16 16:38 INR 1.07 (0.83-1.16) 06/27/16 16:38 Physical Exam - Physical Exam General Appearance: alert, cachetic, thin EENT: normal ENT inspection Neck: normal inspection Respiratory: normal breath sounds, rhonchi (on left) Cardiac/Chest: regular rate, rhythm, systolic murmur Abdomen: normal bowel sounds, non-tender Extremities: swelling (tr-1+) ICD10 Worksheet Patient Problems: Problems Problem Status Onset Weakness Acute Anemia Acute C. difficile diarrhea Acute ~06/18/16 CHF (congestive heart failure) Acute Chronic Disease Mgmt/Transitional Care Acute Chronic Disease Mgmt/Transitional Care Acute Chronic pneumonia Acute Chronic renal failure Acute Dehydration Acute Dialysis complication Acute ESBL (extended spectrum beta-lactamase) producing bacteria infection Acute Extended spectrum beta lactamase (ESBL) resistance Acute 02/15/16 Fever Acute History of pneumonia Acute Hypotension Acute Hypoxemia Acute Hypoxia Acute Leukocytosis Acute Lung infiltrate Acute Mitral valve replaced Acute Palliative care encounter Acute Pneumonia Acute Pneumonia Acute Pneumonia Acute Pneumonia due to Pseudomonas Acute Renal failure Acute Renal transplant recipient Acute Sepsis Acute Severe sepsis Acute Severe sepsis Acute Shortness of breath Acute VRE (vancomycin-resistant Enterococci) Acute 01/11/16 Weakness Acute
--- NOTE | 2016-07-11 10:44 | PCMIDPN ---
Assessment/Plan: # RUL PNA secondary PsA. worsening LLL infiltrate s/p bronch yesterday. Continues to appear ill, although, other than ongoing fever, vital signs okay, WBC normal yesterday. Etiology: PsA - evolving resistance?, viral, PJP, drug fever, rejection ? 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 Sort out ongoing cause of fever before decrease PO vancomycin. Currently s/p 3 weeks PO vancomycin #ESRD on HD meds meropenem 1gm IV daily #8 micro 07/10 BAL: gram stain neg for organism 07/08 blood cx (2) Pending 07/03 BAL : solis-S PsA, PJP smear neg 07/02 Histo An neg; influenza neg 07/01 Crypto An neg Subjective: still feeling quite poorly, still feels SOB and with cough. Not as clear thinking today No abdominal pain, diarrhea, joint pain, rash Objective: Vital Signs Temp Pulse Resp BP Pulse Ox 37.2 C 59 L 18 97/52 L 96 07/11/16 07:50 07/11/16 07:50 07/11/16 07:50 07/11/16 07:50 07/11/16 07:50 Microbiology 07/10/16 18:35 Gram Stain - Final Lung Bilateral - Bronchial Washings Laboratory Results 07/10/16 05:05 07/11/16 04:35 07/10/16 07/11/16 07/12/16 05:59 05:59 05:59 Intake Total 115 0 Balance 115 0 - Physical Exam General Appearance: alert, thin, other (ill appearing, but not toxic) Respiratory: crackles, No accessory muscle use Cardiac/Chest: regular rate, rhythm, systolic murmur Extremities: No pedal edema Abdomen: non-tender, soft, distended ICD10 Worksheet Patient Problems: Problems Problem Status Onset Weakness Acute Anemia Acute C. difficile diarrhea Acute ~06/18/16 CHF (congestive heart failure) Acute Chronic Disease Mgmt/Transitional Care Acute Chronic Disease Mgmt/Transitional Care Acute Chronic pneumonia Acute Chronic renal failure Acute Dehydration Acute Dialysis complication Acute ESBL (extended spectrum beta-lactamase) producing bacteria infection Acute Extended spectrum beta lactamase (ESBL) resistance Acute 02/15/16 Fever Acute History of pneumonia Acute Hypotension Acute Hypoxemia Acute Hypoxia Acute Leukocytosis Acute Lung infiltrate Acute Mitral valve replaced Acute Palliative care encounter Acute Pneumonia Acute Pneumonia Acute Pneumonia Acute Pneumonia due to Pseudomonas Acute Renal failure Acute Renal transplant recipient Acute Sepsis Acute Severe sepsis Acute Severe sepsis Acute Shortness of breath Acute VRE (vancomycin-resistant Enterococci) Acute 01/11/16 Weakness Acute
[2016-07-11] MEDS ORDERED: LEVALBUTEROL 1.25 MG/3 ML DEYVIAL ONE (11:39)
[2016-07-11] MEDS: CALCIUM ACETATE 667 MG CAP PO SCH ×3 (13:35→18:47)
[2016-07-11] MEDS: guaiFENesin 600 MG TAB.ER PO SCH ×2 (13:38→21:22)
[2016-07-11] MEDS: MULTIVITAMINS 1 EACH TAB PO SCH (13:38)
[2016-07-11] MEDS: AMIODARONE HCL 200 MG TAB PO SCH ×2 (13:39→21:22)
[2016-07-11] MEDS: hydrOXYzine HCL 25 MG TAB PO SCH ×2 (13:40→21:22)
[2016-07-11] MEDS: predniSONE 5 MG TAB PO SCH (13:42)
[2016-07-11] MEDS: NS IV SCH (13:55)
[2016-07-11] MEDS: MEROPENEM IV SCH (13:55)
[2016-07-11] MEDS: SODIUM POLYSTYRENE SULF 454 GM POWDER PO SCH (14:10)
[2016-07-11] MEDS: ONDANSETRON 4 MG/2 ML VIAL IVP PRN (14:10)
[2016-07-11] MEDS ORDERED: HEPARIN 50,000 UNIT/10 ML VIAL ONE (14:34)
[2016-07-11] MEDS: PIPERACILLIN/TAZO 2.25 GM/DEX 50 ML IV SCH ×2 (15:47→21:22)
--- NOTE | 2016-07-11 16:07 | HOSPPROG ---
Hospitalist Progress Note Assessment/Plan: 66 yo M w complex history. # recurrent multilobar pna: s/p bronch with pseudomonas, solis-sensitive - bronch worse abx changed to zosyn fever today- blood cx ordered - BDs, mucinex - IS, flutter valve # IgG defic - receives intermittent IVIG; last dose 06/28 - plan Q4 weeks repeat value pending # ESRD d/t PKD s/p failed graft - HD MWF via HD catheter # mildly elevated LFTs - follow occasionally # a-fib: amio, coreg # htn: coreg, hydralazine # c. dif - vanc PO; day #14 for QID dose, then BID dosing until 1 week after completing merrem # severe protein calorie malnutrition # debilitation - PT/OT # lovenox Subjective: yesterday's bronch w many purulent secretions. case d/w dr gama Objective: Vital Signs Temp Pulse Resp BP Pulse Ox 39.1 C H 61 18 137/61 H 98 07/11/16 15:23 07/11/16 15:23 07/11/16 15:23 07/11/16 15:23 07/11/16 15:23 Microbiology 07/10/16 18:35 Gram Stain - Final Lung Bilateral - Bronchial Washings Laboratory Results 07/10/16 05:05 07/11/16 04:35 07/10/16 07/11/16 07/12/16 05:59 05:59 05:59 Intake Total 115 0 240 Balance 115 0 240 PT 13.8 SEC (12.0-15.0) 06/27/16 16:38 INR 1.07 (0.83-1.16) 06/27/16 16:38 - Physical Exam Constitutional: no apparent distress, chronically ill appearing Eyes: PERRL Ears, Nose, Mouth, Throat: moist mucous membranes, hearing normal Cardiovascular: regular rate and rhythym, no murmur, rub, or gallop, No tachycardia Respiratory: other (duffuse rhonchi unchanged from yesterday) Gastrointestinal: normoactive bowel sounds, soft, non-tender abdomen Genitourinary: no bladder fullness, No mercer in urethra Skin: warm, normal color Musculoskeletal: full muscle strength, no muscle tenderness Neurologic: AAOx3 ICD10 Worksheet Patient Problems: Problems Problem Status Onset Weakness Acute Anemia Acute C. difficile diarrhea Acute ~06/18/16 CHF (congestive heart failure) Acute Chronic Disease Mgmt/Transitional Care Acute Chronic Disease Mgmt/Transitional Care Acute Chronic pneumonia Acute Chronic renal failure Acute Dehydration Acute Dialysis complication Acute ESBL (extended spectrum beta-lactamase) producing bacteria infection Acute Extended spectrum beta lactamase (ESBL) resistance Acute 02/15/16 Fever Acute History of pneumonia Acute Hypotension Acute Hypoxemia Acute Hypoxia Acute Leukocytosis Acute Lung infiltrate Acute Mitral valve replaced Acute Palliative care encounter Acute Pneumonia Acute Pneumonia Acute Pneumonia Acute Pneumonia due to Pseudomonas Acute Renal failure Acute Renal transplant recipient Acute Sepsis Acute Severe sepsis Acute Severe sepsis Acute Shortness of breath Acute VRE (vancomycin-resistant Enterococci) Acute 01/11/16 Weakness Acute
[2016-07-11] MEDS: MONTELUKAST SODIUM 10 MG TAB PO SCH (18:48)
--- NOTE | 2016-07-11 19:39 | SOAPPROG ---
SOAP Progress Note Assessment/Plan: Assessment: Pneumonia: Multilobar, now with increased fevers again and increased infiltrates on x-ray, primarily at the right base. likely bacterial, has hypogammaglobulinemia, recently had PsA, possibly still present. Repeat bronchoscopy done yesterday. Cultures and stains pending. Hypogammaglobulinemia: Dosed with IVIG last week CKD: On regularly scheduled HD History of C.Diff Plan: Continue current care, bronchopulmonary therapies, antibiotics. Await further culture results, with changes in antibiotics as indicated - per Infectious Disease. Discussed with the patient. Subjective: Does not feel very good. Fatigue, some shortness of breath, persistent cough. Unable to clear any mucus. Objective: Vital Signs Temp Pulse Resp BP Pulse Ox 39.1 C H 85 18 137/61 H 95 07/11/16 15:23 07/11/16 18:48 07/11/16 17:44 07/11/16 18:48 07/11/16 17:44 Microbiology 07/10/16 18:35 Mycobacterial Smear (CASEY) - Final Lung Bilateral - Bronchial Washings 07/10/16 18:35 Gram Stain - Final Lung Bilateral - Bronchial Washings Laboratory Results 07/10/16 05:05 07/11/16 04:35 07/10/16 07/11/16 07/12/16 05:59 05:59 05:59 Intake Total 115 0 240 Balance 115 0 240 PT 13.8 SEC (12.0-15.0) 06/27/16 16:38 INR 1.07 (0.83-1.16) 06/27/16 16:38 Bronch cultures and brushes from yesterday remain pending Physical Exam - Physical Exam General Appearance: no apparent distress, thin, other (Up in chair) EENT: other (Nasal cannula 5 L) Neck: normal inspection (No obvious JVD) Respiratory: decreased breath sounds, rales (Left face greater than right. Some dullness at the left base. Central bronchial congestion is present), rhonchi, wheezing (Mild) Cardiac/Chest: regular rate, rhythm Abdomen: normal bowel sounds, non-tender, soft Skin: warm/dry, pallor Extremities: pedal edema Neuro/Psych: no motor/sensory deficits, No cognition abnormalities ICD10 Worksheet Patient Problems: Problems Problem Status Onset Dehydration Acute Dialysis complication Acute Weakness Acute C. difficile diarrhea Acute ~06/18/16 Chronic Disease Mgmt/Transitional Care Acute Pneumonia Acute Mitral valve replaced Acute Extended spectrum beta lactamase (ESBL) resistance Acute 02/15/16 Renal transplant recipient Acute Chronic renal failure Acute CHF (congestive heart failure) Acute Anemia Acute Hypoxemia Acute Renal failure Acute Shortness of breath Acute Lung infiltrate Acute Hypotension Acute Severe sepsis Acute Pneumonia due to Pseudomonas Acute Hypoxia Acute Sepsis Acute Chronic Disease Mgmt/Transitional Care Acute Fever Acute History of pneumonia Acute VRE (vancomycin-resistant Enterococci) Acute 01/11/16 Palliative care encounter Acute Weakness Acute Chronic pneumonia Acute ESBL (extended spectrum beta-lactamase) producing bacteria infection Acute Leukocytosis Acute Pneumonia Acute Severe sepsis Acute Pneumonia Acute
[2016-07-11] MEDS: TIOTROPIUM INHALER 18 MCG/DOSE 5 DOSE/MDI IH SCH (21:52)
[2016-07-12] MEDS: NYSTATIN SUSP 500000 UNIT/5 ML UDCUP PO SCH ×5 (04:37→21:19)
[2016-07-12] MEDS: VANCOMYCIN 125 MG/2.5 ML UDL PO SCH ×4 (04:37→21:18)
[2016-07-12] MEDS: PIPERACILLIN/TAZO 2.25 GM/DEX 50 ML IV SCH ×3 (04:37→22:45)
[2016-07-12] MEDS: LEVALBUTEROL 1.25 MG/3 ML DEYVIAL IH PRN ×3 (04:48→21:55)
[2016-07-12] MEDS: ACETYLCYSTEINE 20% IH/PO 30 ML VIAL IH SCH ×2 (04:48→12:10)
[2016-07-12 05:01] LABS: ALBUMIN 2.1 g/dL (3.5-5.0); ANION GAP 8 mEq/L (8-16); CALCIUM 8.3 mg/dL (8.5-10.4); CARBON DIOXIDE 29 mEq/l (22-31); CHLORIDE 97 mEq/L (97-110); CREATININE 3.7 mg/dL (0.7-1.3); GLOMERULAR FILTRATION RATE 17; GLUCOSE 96 mg/dL (70-100); POTASSIUM 4.8 mEq/L (3.5-5.2); SODIUM 134 mEq/L (134-144)
[2016-07-12] MEDS: HEPARIN 5,000 UNIT/0.5 ML SYR SC SCH ×4 (05:14→20:25)
[2016-07-12] MEDS: LEVALBUTEROL 1.25 MG/3 ML DEYVIAL IH SCH ×2 (09:37→21:55)
[2016-07-12] MEDS: Mometasone/Formoterol [Dulera 200 Mcg/5 Mcg Inhaler] IH SCH ×2 (09:40→22:00)
[2016-07-12] MEDS: LEVALBUTEROL INHALER 200 PUFFS/15 GM MDI IH SCH ×2 (09:40→22:00)
[2016-07-12] MEDS: CALCIUM ACETATE 667 MG CAP PO SCH ×3 (10:18→18:41)
[2016-07-12] MEDS: AMIODARONE HCL 200 MG TAB PO SCH ×2 (10:19→21:19)
[2016-07-12] MEDS: predniSONE 5 MG TAB PO SCH (10:20)
[2016-07-12] MEDS: hydrOXYzine HCL 25 MG TAB PO SCH ×2 (10:20→21:19)
[2016-07-12] MEDS: MULTIVITAMINS 1 EACH TAB PO SCH (10:20)
[2016-07-12] MEDS: CARVEDILOL 6.25 MG TAB PO SCH ×2 (10:21→17:52)
[2016-07-12] MEDS: guaiFENesin 600 MG TAB.ER PO SCH ×2 (10:21→21:19)
[2016-07-12] MEDS: SODIUM POLYSTYRENE SULF 454 GM POWDER PO SCH (10:23)
[2016-07-12 11:00] LABS: RESPPCR RESULT SEE COMMENTS
--- NOTE | 2016-07-12 11:39 | SOAPPROG ---
SOAP Progress Note Assessment/Plan: Assessment: 1. Recurrent Pseudomonal Pneumonia ID seeing. Seems improved. 2. ESRD HD tomorrow. Back on MWF schedule next week. 3. Affect more depressed. Subjective: Seems a bit brighter today Objective: Vital Signs Temp Pulse Resp BP Pulse Ox 36.9 C 64 18 106/57 L 97 07/12/16 08:00 07/12/16 10:21 07/12/16 08:00 07/12/16 10:21 07/12/16 08:00 Microbiology 07/10/16 18:35 Mycobacterial Smear (CASEY) - Final Lung Bilateral - Bronchial Washings 07/10/16 18:35 Gram Stain - Final Lung Bilateral - Bronchial Washings Laboratory Results 07/10/16 05:05 07/12/16 04:40 07/11/16 07/12/16 07/13/16 05:59 05:59 05:59 Intake Total 0 740 Balance 0 740 PT 13.8 SEC (12.0-15.0) 06/27/16 16:38 INR 1.07 (0.83-1.16) 06/27/16 16:38 Physical Exam - Physical Exam General Appearance: no apparent distress, cachetic Respiratory: crackles Cardiac/Chest: regular rate, rhythm Extremities: pedal edema Neuro/Psych: oriented x 3 ICD10 Worksheet Patient Problems: Problems Problem Status Onset Weakness Acute Anemia Acute C. difficile diarrhea Acute ~06/18/16 CHF (congestive heart failure) Acute Chronic Disease Mgmt/Transitional Care Acute Chronic Disease Mgmt/Transitional Care Acute Chronic pneumonia Acute Chronic renal failure Acute Dehydration Acute Dialysis complication Acute ESBL (extended spectrum beta-lactamase) producing bacteria infection Acute Extended spectrum beta lactamase (ESBL) resistance Acute 02/15/16 Fever Acute History of pneumonia Acute Hypotension Acute Hypoxemia Acute Hypoxia Acute Leukocytosis Acute Lung infiltrate Acute Mitral valve replaced Acute Palliative care encounter Acute Pneumonia Acute Pneumonia Acute Pneumonia Acute Pneumonia due to Pseudomonas Acute Renal failure Acute Renal transplant recipient Acute Sepsis Acute Severe sepsis Acute Severe sepsis Acute Shortness of breath Acute VRE (vancomycin-resistant Enterococci) Acute 01/11/16 Weakness Acute
--- NOTE | 2016-07-12 13:24 | HOSPPROG ---
Hospitalist Progress Note Assessment/Plan: 66 yo M w complex history. # recurrent multilobar pna: s/p bronch with pseudomonas, solis-sensitive - bronch worse abx changed to zosyn fever yesterday- blood cx ordered - BDs, mucinex - IS, flutter valve wishes to dc mucomyst nebs and start hypertonic saline- i have called rt re: this # IgG defic - receives intermittent IVIG; last dose 06/28 - plan Q4 weeks repeat value still pending # ESRD d/t PKD s/p failed graft - HD MWF via HD catheter # mildly elevated LFTs - follow occasionally # a-fib: amio, coreg # htn: coreg, hydralazine # c. dif - vanc PO; day #14/ for QID dose, then BID dosing until 1 week after completing merrem # severe protein calorie malnutrition # debilitation - PT/OT # lovenox Subjective: case discussed w dr bolivar. afebrile! Objective: Vital Signs Temp Pulse Resp BP Pulse Ox 36.6 C 80 18 111/63 95 07/12/16 11:45 07/12/16 12:11 07/12/16 12:11 07/12/16 11:45 07/12/16 12:11 Microbiology 07/10/16 18:35 Mycobacterial Smear (CASEY) - Final Lung Bilateral - Bronchial Washings 07/10/16 18:35 Gram Stain - Final Lung Bilateral - Bronchial Washings Laboratory Results 07/10/16 05:05 07/12/16 04:40 07/11/16 07/12/16 07/13/16 05:59 05:59 05:59 Intake Total 0 740 Balance 0 740 PT 13.8 SEC (12.0-15.0) 06/27/16 16:38 INR 1.07 (0.83-1.16) 06/27/16 16:38 - Physical Exam Constitutional: no apparent distress, chronically ill appearing Eyes: PERRL, anicteric sclera Ears, Nose, Mouth, Throat: moist mucous membranes, hearing normal Cardiovascular: regular rate and rhythym, no murmur, rub, or gallop Respiratory: no respiratory distress, other (b/l rhonchi) Gastrointestinal: normoactive bowel sounds, soft, non-tender abdomen Genitourinary: no bladder fullness, No mercer in urethra Skin: warm Musculoskeletal: full muscle strength, no muscle tenderness Neurologic: AAOx3, sensation intact bilaterally Psychiatric: interacting appropriately ICD10 Worksheet Patient Problems: Problems Problem Status Onset Weakness Acute Anemia Acute C. difficile diarrhea Acute ~06/18/16 CHF (congestive heart failure) Acute Chronic Disease Mgmt/Transitional Care Acute Chronic Disease Mgmt/Transitional Care Acute Chronic pneumonia Acute Chronic renal failure Acute Dehydration Acute Dialysis complication Acute ESBL (extended spectrum beta-lactamase) producing bacteria infection Acute Extended spectrum beta lactamase (ESBL) resistance Acute 02/15/16 Fever Acute History of pneumonia Acute Hypotension Acute Hypoxemia Acute Hypoxia Acute Leukocytosis Acute Lung infiltrate Acute Mitral valve replaced Acute Palliative care encounter Acute Pneumonia Acute Pneumonia Acute Pneumonia Acute Pneumonia due to Pseudomonas Acute Renal failure Acute Renal transplant recipient Acute Sepsis Acute Severe sepsis Acute Severe sepsis Acute Shortness of breath Acute VRE (vancomycin-resistant Enterococci) Acute 01/11/16 Weakness Acute
--- NOTE | 2016-07-12 15:02 | PCMIDPN ---
Assessment/Plan: Assessment/Plan: * Recurrent pseudomonal pneumonia which is multilobar: Repeat bronchoscopy on for worsening left lower lobe infiltrate and persistent fever. BAL specimen is no growth to date. Now receiving Zosyn given concerns for possible evolution of meropenem resistance in Pseudomonas while on therapy. Plan to continue Zosyn and follow up BAL culture as available. * C difficile colitis: Continue oral vancomycin. If no other interval changes , plan transition to twice daily suppressive dosing tomorrow. * Hypogammaglobulinemia: Follow-up repeat Ig levels. 07/12/16 14:58 07/12/16 15:01 Subjective: Patient feels better today. More energy. Cough feels decreased. Notes persistent shortness of breath. No diarrhea. Objective: Vital Signs Temp Pulse Resp BP Pulse Ox 36.6 C 80 18 111/63 95 07/12/16 11:45 07/12/16 12:11 07/12/16 12:11 07/12/16 11:45 07/12/16 12:11 Microbiology 07/10/16 18:35 Mycobacterial Smear (CASEY) - Final Lung Bilateral - Bronchial Washings 07/10/16 18:35 Gram Stain - Final Lung Bilateral - Bronchial Washings Laboratory Results 07/10/16 05:05 07/12/16 04:40 07/11/16 07/12/16 07/13/16 05:59 05:59 05:59 Intake Total 0 740 Balance 0 740 Zosyn # 2 Oral vancomycin four times daily BAL no growth to date IgG level pending BAL negative for Pneumocystis; viral respiratory PCR negative; CMV DNA pending - Physical Exam General Appearance: alert, no apparent distress EENT: No scleral icterus, No thrush Respiratory: crackles (Left base) Cardiac/Chest: irregularly irregular Abdomen: non-tender, No distended - Line/s RUE PICC Lines: No drainage, No erythema ICD10 Worksheet Patient Problems: Problems Problem Status Onset Weakness Acute Anemia Acute C. difficile diarrhea Acute ~06/18/16 CHF (congestive heart failure) Acute Chronic Disease Mgmt/Transitional Care Acute Chronic Disease Mgmt/Transitional Care Acute Chronic pneumonia Acute Chronic renal failure Acute Dehydration Acute Dialysis complication Acute ESBL (extended spectrum beta-lactamase) producing bacteria infection Acute Extended spectrum beta lactamase (ESBL) resistance Acute 02/15/16 Fever Acute History of pneumonia Acute Hypotension Acute Hypoxemia Acute Hypoxia Acute Leukocytosis Acute Lung infiltrate Acute Mitral valve replaced Acute Palliative care encounter Acute Pneumonia Acute Pneumonia Acute Pneumonia Acute Pneumonia due to Pseudomonas Acute Renal failure Acute Renal transplant recipient Acute Sepsis Acute Severe sepsis Acute Severe sepsis Acute Shortness of breath Acute VRE (vancomycin-resistant Enterococci) Acute 01/11/16 Weakness Acute
[2016-07-12] MEDS: SODIUM CL FOR INH 10% 15 ML VIAL.NEB IH PRN ×2 (16:51→21:55)
[2016-07-12] MEDS: EPOETIN ALFA 10,000 UNIT/ML VIAL SC SCH (17:51)
[2016-07-12] MEDS: MONTELUKAST SODIUM 10 MG TAB PO SCH (17:52)
[2016-07-12 18:17] LABS: IMMUNOGLOBULIN G 744 mg/dL (767 - 1590)
--- NOTE | 2016-07-12 18:38 | SOAPPROG ---
SOAP Progress Note Assessment/Plan: Assessment: Pneumonia: Multilobar, now with increased fevers again and increased infiltrates on x-ray, primarily at the right base. likely bacterial, has hypogammaglobulinemia, recently had PsA, possibly still present. Repeat bronchoscopy done yesterday. Cultures and stains pending. Hypogammaglobulinemia: Dosed with IVIG last week CKD: On regularly scheduled HD History of C.Diff Plan: Continue current care, bronchopulmonary therapies, antibiotics. Await final culture results, with changes in antibiotics as indicated - per Infectious Disease. Subjective: Feels a bit better today. No fevers. Breathing a little better. Objective: Vital Signs Temp Pulse Resp BP Pulse Ox 36.4 C 67 17 112/66 95 07/12/16 16:23 07/12/16 17:52 07/12/16 16:52 07/12/16 17:52 07/12/16 16:52 Microbiology 07/10/16 18:35 Gram Stain - Final Lung Bilateral - Bronchial Washings Bronchial Washings Culture - Final 07/10/16 18:35 Mycobacterial Smear (CASEY) - Final Lung Bilateral - Bronchial Washings Laboratory Results 07/10/16 05:05 07/12/16 04:40 07/11/16 07/12/16 07/13/16 05:59 05:59 05:59 Intake Total 0 740 300 Balance 0 740 300 PT 13.8 SEC (12.0-15.0) 06/27/16 16:38 INR 1.07 (0.83-1.16) 06/27/16 16:38 All cultures so far from the bronchoscopy remain negative. AFB smear negative. No evidence of Pneumocystis. Physical Exam - Physical Exam General Appearance: alert, no apparent distress, other (In chair) Neck: normal inspection Respiratory: decreased breath sounds, rales, rhonchi (Few central rhonchi with cough) Cardiac/Chest: regular rate, rhythm Abdomen: normal bowel sounds, non-tender, soft Skin: warm/dry, pallor Extremities: pedal edema Neuro/Psych: no motor/sensory deficits, No cognition abnormalities ICD10 Worksheet Patient Problems: Problems Problem Status Onset Dehydration Acute Dialysis complication Acute Weakness Acute C. difficile diarrhea Acute ~06/18/16 Chronic Disease Mgmt/Transitional Care Acute Pneumonia Acute Mitral valve replaced Acute Extended spectrum beta lactamase (ESBL) resistance Acute 02/15/16 Renal transplant recipient Acute Chronic renal failure Acute CHF (congestive heart failure) Acute Anemia Acute Hypoxemia Acute Renal failure Acute Shortness of breath Acute Lung infiltrate Acute Hypotension Acute Severe sepsis Acute Pneumonia due to Pseudomonas Acute Hypoxia Acute Sepsis Acute Chronic Disease Mgmt/Transitional Care Acute Fever Acute History of pneumonia Acute VRE (vancomycin-resistant Enterococci) Acute 01/11/16 Palliative care encounter Acute Weakness Acute Chronic pneumonia Acute ESBL (extended spectrum beta-lactamase) producing bacteria infection Acute Leukocytosis Acute Pneumonia Acute Severe sepsis Acute Pneumonia Acute
[2016-07-12] MEDS: TIOTROPIUM INHALER 18 MCG/DOSE 5 DOSE/MDI IH SCH (21:59)
[2016-07-12] MEDS: traZODone 50 MG TAB PO PRN (23:48)
[2016-07-13] MEDS: SODIUM CL FOR INH 10% 15 ML VIAL.NEB IH PRN ×2 (02:52→22:32)
[2016-07-13] MEDS: PIPERACILLIN/TAZO 2.25 GM/DEX 50 ML IV SCH ×3 (05:12→22:16)
[2016-07-13] MEDS: NYSTATIN SUSP 500000 UNIT/5 ML UDCUP PO SCH ×4 (05:13→22:15)
[2016-07-13] MEDS: HEPARIN 5,000 UNIT/0.5 ML SYR SC SCH ×3 (05:23→21:40)
[2016-07-13 05:37] LABS: ALBUMIN 2.3 g/dL (3.5-5.0); ANION GAP 10 mEq/L (8-16); CALCIUM 8.2 mg/dL (8.5-10.4); CARBON DIOXIDE 28 mEq/l (22-31); CHLORIDE 96 mEq/L (97-110); CREATININE 4.9 mg/dL (0.7-1.3); GLOMERULAR FILTRATION RATE 12; GLUCOSE 90 mg/dL (70-100); POTASSIUM 5.2 mEq/L (3.5-5.2); SODIUM 134 mEq/L (134-144)
[2016-07-13 05:47] LABS: ADD MORPH? NO; ADD SCAN? YES; ATYPICAL LYMPHOCYTE FLAG 0 (0-99); FRAGMENT RBC FLAG 0 (0-99); HEMATOCRIT 23.8 % (40.0-51.0); HEMOGLOBIN 7.3 g/dL (13.7-17.5); LEFT SHIFT FLG 0 (0-99); LIPEMIA HEMOLYSIS FLAG 80 (0-99); MEAN CELL HEMOGLOBIN 30.5 pg (27.9-34.1); MEAN CELL HEMOGLOBIN CONCENTR. 30.7 g/dL (32.4-36.7); MEAN CELL VOLUME 99.6 fL (81.5-99.8); PLATELET CLUMPS FLAG 10 (0-99); PLATELET COUNT 117 10^3/uL (150-400); RED BLOOD CELL COUNT 2.39 10^6/uL (4.40-6.38); RED CELL DISTRIBUTION WIDTH 14.5 % (11.5-15.2)
[2016-07-13 06:55] LABS: SCAN POSITIVE
[2016-07-13 06:56] LABS: ADD DIFF? YES
[2016-07-13 07:01] LABS: HYPOCHROMIA 1+; PLATELET ESTIMATE DECREASED (ADEQ); TOXIC GRANULATION PRESENT
[2016-07-13] MEDS: CALCIUM ACETATE 667 MG CAP PO SCH ×3 (08:07→18:28)
[2016-07-13] MEDS: LEVALBUTEROL INHALER 200 PUFFS/15 GM MDI IH SCH ×2 (09:41→22:36)
[2016-07-13] MEDS: LEVALBUTEROL 1.25 MG/3 ML DEYVIAL IH SCH ×2 (09:42→22:32)
[2016-07-13] MEDS: Mometasone/Formoterol [Dulera 200 Mcg/5 Mcg Inhaler] IH SCH ×2 (09:46→22:36)
--- NOTE | 2016-07-13 11:51 | SOAPPROG ---
SOAP Progress Note Assessment/Plan: Assessment: 1. Recurrent Pseudomonal Pneumonia ID seeing. Seems improved. Remains very weak. 2. ESRD Stable HD earlier today. 3. Affect more depressed. Subjective: Doing ok Objective: Vital Signs Temp Pulse Resp BP Pulse Ox 36.9 C 53 L 14 129/69 H 96 07/12/16 22:58 07/13/16 09:47 07/13/16 09:47 07/12/16 22:58 07/13/16 09:47 Microbiology 07/10/16 18:55 Bronchial [place] Culture - Final Bronchial [place] - Right Lower Lobe 07/10/16 18:55 Bronchial [place] Culture - Final Bronchial [place] - Left Lower Lobe 07/10/16 18:35 Gram Stain - Final Lung Bilateral - Bronchial Washings Bronchial Washings Culture - Final Laboratory Results 07/13/16 05:15 07/13/16 05:15 07/12/16 07/13/16 07/14/16 05:59 05:59 05:59 Intake Total 740 300 Balance 740 300 PT 13.8 SEC (12.0-15.0) 06/27/16 16:38 INR 1.07 (0.83-1.16) 06/27/16 16:38 Physical Exam - Physical Exam General Appearance: no apparent distress, cachetic Neck: other (Catheter tunnel ok) Respiratory: crackles (RLL) Cardiac/Chest: regular rate, rhythm Extremities: normal inspection Neuro/Psych: oriented x 3 ICD10 Worksheet Patient Problems: Problems Problem Status Onset Weakness Acute Anemia Acute C. difficile diarrhea Acute ~06/18/16 CHF (congestive heart failure) Acute Chronic Disease Mgmt/Transitional Care Acute Chronic Disease Mgmt/Transitional Care Acute Chronic pneumonia Acute Chronic renal failure Acute Dehydration Acute Dialysis complication Acute ESBL (extended spectrum beta-lactamase) producing bacteria infection Acute Extended spectrum beta lactamase (ESBL) resistance Acute 02/15/16 Fever Acute History of pneumonia Acute Hypotension Acute Hypoxemia Acute Hypoxia Acute Leukocytosis Acute Lung infiltrate Acute Mitral valve replaced Acute Palliative care encounter Acute Pneumonia Acute Pneumonia Acute Pneumonia Acute Pneumonia due to Pseudomonas Acute Renal failure Acute Renal transplant recipient Acute Sepsis Acute Severe sepsis Acute Severe sepsis Acute Shortness of breath Acute VRE (vancomycin-resistant Enterococci) Acute 01/11/16 Weakness Acute
[2016-07-13] MEDS: AMIODARONE HCL 200 MG TAB PO SCH ×2 (11:53→22:15)
[2016-07-13] MEDS: CARVEDILOL 6.25 MG TAB PO SCH ×2 (11:53→22:15)
[2016-07-13] MEDS: MULTIVITAMINS 1 EACH TAB PO SCH (11:53)
[2016-07-13] MEDS: guaiFENesin 600 MG TAB.ER PO SCH ×2 (11:53→22:15)
[2016-07-13] MEDS: predniSONE 5 MG TAB PO SCH (11:53)
[2016-07-13] MEDS: VANCOMYCIN 125 MG/2.5 ML UDL PO SCH ×2 (12:45→22:16)
[2016-07-13] MEDS: hydrOXYzine HCL 25 MG TAB PO SCH ×2 (12:46→22:15)
--- NOTE | 2016-07-13 14:43 | HOSPPROG ---
Hospitalist Progress Note Assessment/Plan: 66 yo M w complex history. # recurrent multilobar pna: s/p bronch with pseudomonas, [place]is-sensitive - bronch worse abx changed to zosyn afebrile X 2 days - BDs, mucinex - IS, flutter valve wishes to dc mucomyst nebs and start hypertonic saline- i have called rt re: this # IgG defic - receives intermittent IVIG; last dose 06/28 - plan Q4 weeks repeat value still pending # ESRD d/t PKD s/p failed graft - HD MWF via HD catheter # mildly elevated LFTs - follow occasionally # a-fib: amio, coreg # htn: coreg, hydralazine # c. dif - vanc PO; day #14/14 for QID dose, then BID dosing until 1 week after completing abx # severe protein calorie malnutrition # debilitation - PT/OT # lovenox Subjective: case discssed w dr shankar Objective: Vital Signs Temp Pulse Resp BP Pulse Ox 36.9 C 53 L 14 129/69 H 96 07/12/16 22:58 07/13/16 09:47 07/13/16 09:47 07/12/16 22:58 07/13/16 09:47 Microbiology 07/10/16 18:55 Bronchial [place] Culture - Final Bronchial [place] - Right Lower Lobe 07/10/16 18:55 Bronchial [place] Culture - Final Bronchial [place] - Left Lower Lobe 07/10/16 18:35 Gram Stain - Final Lung Bilateral - Bronchial [place] Bronchial [place] Culture - Final Laboratory Results 07/13/16 05:15 07/13/16 05:15 07/12/16 07/13/16 07/14/16 05:59 05:59 05:59 Intake Total 740 300 Balance 740 300 PT 13.8 SEC (12.0-15.0) 06/27/16 16:38 INR 1.07 (0.83-1.16) 06/27/16 16:38 - Physical Exam Constitutional: no apparent distress, appears nourished, other (looks better) Eyes: PERRL, anicteric sclera Ears, Nose, Mouth, Throat: moist mucous membranes, hearing normal Cardiovascular: regular rate and rhythym, no murmur, rub, or gallop Respiratory: no respiratory distress, no rales or rhonchi Gastrointestinal: normoactive bowel sounds, soft, non-tender abdomen Genitourinary: No mercer in urethra Skin: warm, normal color Musculoskeletal: full muscle strength, no muscle tenderness Neurologic: AAOx3, sensation intact bilaterally Psychiatric: interacting appropriately, not anxious ICD10 Worksheet Patient Problems: Problems Problem Status Onset Weakness Acute Anemia Acute C. difficile diarrhea Acute ~06/18/16 CHF (congestive heart failure) Acute Chronic Disease Mgmt/Transitional Care Acute Chronic Disease Mgmt/Transitional Care Acute Chronic pneumonia Acute Chronic renal failure Acute Dehydration Acute Dialysis complication Acute ESBL (extended spectrum beta-lactamase) producing bacteria infection Acute Extended spectrum beta lactamase (ESBL) resistance Acute 02/15/16 Fever Acute History of pneumonia Acute Hypotension Acute Hypoxemia Acute Hypoxia Acute Leukocytosis Acute Lung infiltrate Acute Mitral valve replaced Acute Palliative care encounter Acute Pneumonia Acute Pneumonia Acute Pneumonia Acute Pneumonia due to Pseudomonas Acute Renal failure Acute Renal transplant recipient Acute Sepsis Acute Severe sepsis Acute Severe sepsis Acute Shortness of breath Acute VRE (vancomycin-resistant Enterococci) Acute 01/11/16 Weakness Acute
[2016-07-13] MEDS: LEVALBUTEROL 1.25 MG/3 ML DEYVIAL IH PRN ×2 (14:46→17:43)
[2016-07-13] MEDS: SODIUM POLYSTYRENE SULF 454 GM POWDER PO SCH (16:13)
[2016-07-13] MEDS ORDERED: HEPARIN 50,000 UNIT/10 ML VIAL ONE (16:25)
--- NOTE | 2016-07-13 16:31 | PCMIDPN ---
Assessment/Plan: Assessment/Plan: * Recurrent pseudomonal pneumonia which is multilobar: Repeat bronchoscopy on for worsening left lower lobe infiltrate and persistent fever. [place] and BAL specimen are no growth. Continue Zosyn given concerns about evolved meropenem resistance although no growth of Pseudomonas on recent cultures. Other possibility for prior fever would be drug fever to meropenem. * C difficile colitis: Continue suppressive oral vancomycin twice daily while on broad-spectrum antibiotic therapy. * Hypogammaglobulinemia: Adequate IgG level post IVIG. 07/13/16 16:28 Subjective: Patient feels better but continues to feel weak. Intermittent productive cough present. Objective: Vital Signs Temp Pulse Resp BP Pulse Ox 36.6 C 58 L 16 122/62 H 100 07/13/16 16:00 07/13/16 16:00 07/13/16 16:00 07/13/16 16:00 07/13/16 16:00 Microbiology 07/10/16 18:55 Bronchial [place] Culture - Final Bronchial [place] - Right Lower Lobe 07/10/16 18:55 Bronchial [place] Culture - Final Bronchial [place] - Left Lower Lobe 07/10/16 18:35 Gram Stain - Final Lung Bilateral - Bronchial [place] Bronchial [place] Culture - Final Laboratory Results 07/13/16 05:15 07/13/16 05:15 07/12/16 07/13/16 07/14/16 05:59 05:59 05:59 Intake Total 740 300 Balance 740 300 Zosyn # 3 BAL wash and brush cultures no growth Laboratory Tests 06/02/16 07/11/16 05:40 04:54 IgG 679 L 744 L CMV DNA PCR negative - Physical Exam General Appearance: alert, no apparent distress EENT: No scleral icterus Respiratory: lungs clear, No respiratory distress Abdomen: non-tender, No distended ICD10 Worksheet Patient Problems: Problems Problem Status Onset Weakness Acute Anemia Acute C. difficile diarrhea Acute ~06/18/16 CHF (congestive heart failure) Acute Chronic Disease Mgmt/Transitional Care Acute Chronic Disease Mgmt/Transitional Care Acute Chronic pneumonia Acute Chronic renal failure Acute Dehydration Acute Dialysis complication Acute ESBL (extended spectrum beta-lactamase) producing bacteria infection Acute Extended spectrum beta lactamase (ESBL) resistance Acute 02/15/16 Fever Acute History of pneumonia Acute Hypotension Acute Hypoxemia Acute Hypoxia Acute Leukocytosis Acute Lung infiltrate Acute Mitral valve replaced Acute Palliative care encounter Acute Pneumonia Acute Pneumonia Acute Pneumonia Acute Pneumonia due to Pseudomonas Acute Renal failure Acute Renal transplant recipient Acute Sepsis Acute Severe sepsis Acute Severe sepsis Acute Shortness of breath Acute VRE (vancomycin-resistant Enterococci) Acute 01/11/16 Weakness Acute
[2016-07-13] MEDS: MONTELUKAST SODIUM 10 MG TAB PO SCH (18:28)
[2016-07-13] MEDS: traZODone 50 MG TAB PO PRN (22:15)
[2016-07-13] MEDS: TIOTROPIUM INHALER 18 MCG/DOSE 5 DOSE/MDI IH SCH (22:35)
[2016-07-14] MEDS: HEPARIN 5,000 UNIT/0.5 ML SYR SC SCH ×3 (04:47→20:57)
[2016-07-14] MEDS: PIPERACILLIN/TAZO 2.25 GM/DEX 50 ML IV SCH ×3 (05:41→20:57)
[2016-07-14] MEDS: NYSTATIN SUSP 500000 UNIT/5 ML UDCUP PO SCH ×4 (05:41→20:54)
[2016-07-14 06:02] LABS: % IMMATURE GRANULYOCYTES 0.4 % (0.0-1.1); ABSOLUTE IMMATURE GRANULOCYTES 0.02 10^3/uL (0.00-0.10); ADD DIFF? NO; ADD MORPH? NO; ADD SCAN? NO; ATYPICAL LYMPHOCYTE FLAG 0 (0-99); FRAGMENT RBC FLAG 0 (0-99); HEMATOCRIT 24.5 % (40.0-51.0); HEMOGLOBIN 7.4 g/dL (13.7-17.5); LEFT SHIFT FLG 0 (0-99); LIPEMIA HEMOLYSIS FLAG 80 (0-99); MEAN CELL HEMOGLOBIN 30.6 pg (27.9-34.1); MEAN CELL HEMOGLOBIN CONCENTR. 30.2 g/dL (32.4-36.7); MEAN CELL VOLUME 101.2 fL (81.5-99.8); PLATELET CLUMPS FLAG 0 (0-99); PLATELET COUNT 120 10^3/uL (150-400); RED BLOOD CELL COUNT 2.42 10^6/uL (4.40-6.38); RED CELL DISTRIBUTION WIDTH 14.5 % (11.5-15.2)
[2016-07-14 06:32] LABS: ALBUMIN 2.2 g/dL (3.5-5.0); ANION GAP 9 mEq/L (8-16); CALCIUM 8.5 mg/dL (8.5-10.4); CARBON DIOXIDE 30 mEq/l (22-31); CHLORIDE 99 mEq/L (97-110); CREATININE 3.1 mg/dL (0.7-1.3); GLOMERULAR FILTRATION RATE 20; GLUCOSE 81 mg/dL (70-100); POTASSIUM 4.6 mEq/L (3.5-5.2); SODIUM 138 mEq/L (134-144)
[2016-07-14] MEDS: Mometasone/Formoterol [Dulera 200 Mcg/5 Mcg Inhaler] IH SCH ×2 (09:42→19:47)
[2016-07-14] MEDS: LEVALBUTEROL INHALER 200 PUFFS/15 GM MDI IH SCH ×2 (09:42→19:48)
[2016-07-14] MEDS: VANCOMYCIN 125 MG/2.5 ML UDL PO SCH ×2 (09:44→20:55)
[2016-07-14] MEDS: predniSONE 5 MG TAB PO SCH (09:44)
[2016-07-14] MEDS: guaiFENesin 600 MG TAB.ER PO SCH ×2 (09:44→20:54)
[2016-07-14] MEDS: AMIODARONE HCL 200 MG TAB PO SCH ×2 (09:44→20:54)
[2016-07-14] MEDS: CALCIUM ACETATE 667 MG CAP PO SCH ×3 (09:44→17:49)
[2016-07-14] MEDS: hydrOXYzine HCL 25 MG TAB PO SCH ×2 (09:44→20:54)
[2016-07-14] MEDS: MULTIVITAMINS 1 EACH TAB PO SCH (09:45)
[2016-07-14] MEDS: CARVEDILOL 6.25 MG TAB PO SCH ×2 (09:45→17:49)
[2016-07-14] MEDS: LEVALBUTEROL 1.25 MG/3 ML DEYVIAL IH SCH ×2 (09:51→19:43)
--- NOTE | 2016-07-14 11:01 | SOAPPROG ---
SOAP Progress Note Assessment/Plan: Assessment: 1. Recurrent Pseudomonal Pneumonia ID seeing. Breathing and weakness remain issues. 2. ESRD Next HD Friday 3. Affect better today 07/14/16 11:00 Subjective: Doing fair Objective: Vital Signs Temp Pulse Resp BP Pulse Ox 36.7 C 63 12 115/55 L 93 07/14/16 08:44 07/14/16 09:56 07/14/16 09:56 07/14/16 08:44 07/14/16 09:56 Microbiology 07/08/16 13:25 Blood Culture - Final Blood 07/08/16 13:05 Blood Culture - Final Blood 07/10/16 18:55 Bronchial [place] Culture - Final Bronchial [place] - Right Lower Lobe 07/10/16 18:55 Bronchial [place] Culture - Final Bronchial [place] - Left Lower Lobe Laboratory Results 07/14/16 05:40 07/14/16 05:40 07/13/16 07/14/16 07/15/16 05:59 05:59 05:59 Intake Total 300 Balance 300 PT 13.8 SEC (12.0-15.0) 06/27/16 16:38 INR 1.07 (0.83-1.16) 06/27/16 16:38 Physical Exam - Physical Exam General Appearance: no apparent distress, cachetic Respiratory: decreased breath sounds, crackles Cardiac/Chest: regular rate, rhythm Extremities: normal inspection Neuro/Psych: oriented x 3 ICD10 Worksheet Patient Problems: Problems Problem Status Onset Weakness Acute Anemia Acute C. difficile diarrhea Acute ~06/18/16 CHF (congestive heart failure) Acute Chronic Disease Mgmt/Transitional Care Acute Chronic Disease Mgmt/Transitional Care Acute Chronic pneumonia Acute Chronic renal failure Acute Dehydration Acute Dialysis complication Acute ESBL (extended spectrum beta-lactamase) producing bacteria infection Acute Extended spectrum beta lactamase (ESBL) resistance Acute 02/15/16 Fever Acute History of pneumonia Acute Hypotension Acute Hypoxemia Acute Hypoxia Acute Leukocytosis Acute Lung infiltrate Acute Mitral valve replaced Acute Palliative care encounter Acute Pneumonia Acute Pneumonia Acute Pneumonia Acute Pneumonia due to Pseudomonas Acute Renal failure Acute Renal transplant recipient Acute Sepsis Acute Severe sepsis Acute Severe sepsis Acute Shortness of breath Acute VRE (vancomycin-resistant Enterococci) Acute 01/11/16 Weakness Acute
[2016-07-14] MEDS: SODIUM POLYSTYRENE SULF 454 GM POWDER PO SCH (12:49)
--- NOTE | 2016-07-14 14:13 | HOSPPROG ---
Hospitalist Progress Note Assessment/Plan: 66 yo M w complex history. sob: patient thinks it is volume although he is down several kg from admit, has no jvd and is on schedule I suspect poor clearance of secretions RT to start vest cxr bronch tomorrow # recurrent multilobar pna: s/p bronch with pseudomonas, [place]-sensitive - bronch worse abx changed to zosyn afebrile X 2 days - BDs, mucinex - IS, flutter valve wishes to dc mucomyst nebs and start hypertonic saline- i have called rt re: this # IgG defic - receives intermittent IVIG; last dose 06/28 - plan Q4 weeks repeat value still pending # ESRD d/t PKD s/p failed graft - HD MWF via HD catheter # mildly elevated LFTs - follow occasionally # a-fib: amio, coreg # htn: coreg, hydralazine # c. dif - vanc PO; day #14/14 for QID dose, then BID dosing until 1 week after completing abx # severe protein calorie malnutrition # debilitation - PT/OT # lovenox Subjective: case discussed w [facility]. more SOB. suspects he is volume overloaded Objective: Vital Signs Temp Pulse Resp BP Pulse Ox 36.7 C 63 12 115/55 L 93 07/14/16 08:44 07/14/16 09:56 07/14/16 09:56 07/14/16 08:44 07/14/16 09:56 Microbiology 07/08/16 13:25 Blood Culture - Final Blood 07/08/16 13:05 Blood Culture - Final Blood 07/10/16 18:55 Bronchial [place] Culture - Final Bronchial [place] - Right Lower Lobe 07/10/16 18:55 Bronchial [place] Culture - Final Bronchial [place] - Left Lower Lobe Laboratory Results 07/14/16 05:40 07/14/16 05:40 07/13/16 07/14/16 07/15/16 05:59 05:59 05:59 Intake Total 300 Balance 300 PT 13.8 SEC (12.0-15.0) 06/27/16 16:38 INR 1.07 (0.83-1.16) 06/27/16 16:38 - Physical Exam Constitutional: no apparent distress, not in pain, chronically ill appearing Eyes: PERRL, anicteric sclera Ears, Nose, Mouth, Throat: moist mucous membranes, hearing normal Cardiovascular: regular rate and rhythym, no murmur, rub, or gallop, systolic murmur Respiratory: other (diffuse crackles, worse on R) Gastrointestinal: normoactive bowel sounds, soft, non-tender abdomen Genitourinary: No mercer in urethra Skin: warm, normal color Musculoskeletal: other (muscle wasting) Neurologic: AAOx3 ICD10 Worksheet Patient Problems: Problems Problem Status Onset Weakness Acute Anemia Acute C. difficile diarrhea Acute ~06/18/16 CHF (congestive heart failure) Acute Chronic Disease Mgmt/Transitional Care Acute Chronic Disease Mgmt/Transitional Care Acute Chronic pneumonia Acute Chronic renal failure Acute Dehydration Acute Dialysis complication Acute ESBL (extended spectrum beta-lactamase) producing bacteria infection Acute Extended spectrum beta lactamase (ESBL) resistance Acute 02/15/16 Fever Acute History of pneumonia Acute Hypotension Acute Hypoxemia Acute Hypoxia Acute Leukocytosis Acute Lung infiltrate Acute Mitral valve replaced Acute Palliative care encounter Acute Pneumonia Acute Pneumonia Acute Pneumonia Acute Pneumonia due to Pseudomonas Acute Renal failure Acute Renal transplant recipient Acute Sepsis Acute Severe sepsis Acute Severe sepsis Acute Shortness of breath Acute VRE (vancomycin-resistant Enterococci) Acute 01/11/16 Weakness Acute
[2016-07-14] MEDS: LEVALBUTEROL 1.25 MG/3 ML DEYVIAL IH PRN (16:02)
--- NOTE | 2016-07-14 17:03 | SOAPPROG ---
SOAP Progress Note Assessment/Plan: Assessment: Pneumonia: Multilobar, but seems to be back to baseline. Not a lot of secretions at this point. Cultures from my recent bronchoscopy all remain negative. He did have significant mucus present at that time. Enlarging left-sided pleural effusion. Present by exam and x-ray. I think this is the main reason for his current increase shortness of breath. I will have a diagnostic and therapeutic thoracentesis performed tomorrow and sent for cultures. Will as ask renal to try to increase fluid removal with HD.. Hypogammaglobulinemia: Dosed with IVIG last week CKD: On regularly scheduled HD History of C.Diff Plan: Continue current care, bronchopulmonary therapies, antibiotics. Thoracentesis tomorrow. Will hold subcu heparin for the procedure, restart afterwards. Hold on repeat bronchoscopy for now. Renal to remove more fluid with HD if possible. Discussed with patient. Subjective: More short of breath today but does not describe a lot of mucus. Objective: Vital Signs Temp Pulse Resp BP Pulse Ox 36.7 C 63 14 126/69 H 99 07/14/16 16:00 07/14/16 16:08 07/14/16 16:08 07/14/16 16:00 07/14/16 16:08 Microbiology 07/08/16 13:25 Blood Culture - Final Blood 07/08/16 13:05 Blood Culture - Final Blood Laboratory Results 07/14/16 05:40 07/14/16 05:40 07/13/16 07/14/16 07/15/16 05:59 05:59 05:59 Intake Total 300 Balance 300 PT 13.8 SEC (12.0-15.0) 06/27/16 16:38 INR 1.07 (0.83-1.16) 06/27/16 16:38 CXR: Increasing left-sided pleural effusion. Otherwise, looks about the same Physical Exam - Physical Exam General Appearance: alert, no apparent distress, thin, other (Up walking in the halls) EENT: other (Nasal cannula 4 L) Neck: normal inspection Respiratory: decreased breath sounds, rales (Present right base), prolonged expiration, other (Dullness at left base), No rhonchi (No significant rhonchi or pulmonary congestion with voluntary cough), No wheezing Cardiac/Chest: regular rate, rhythm, systolic murmur Abdomen: normal bowel sounds, non-tender, soft Skin: warm/dry, pallor Extremities: pedal edema (1+) Neuro/Psych: no motor/sensory deficits, No cognition abnormalities ICD10 Worksheet Patient Problems: Problems Problem Status Onset Weakness Acute Anemia Acute C. difficile diarrhea Acute ~06/18/16 CHF (congestive heart failure) Acute Chronic Disease Mgmt/Transitional Care Acute Chronic Disease Mgmt/Transitional Care Acute Chronic pneumonia Acute Chronic renal failure Acute Dehydration Acute Dialysis complication Acute ESBL (extended spectrum beta-lactamase) producing bacteria infection Acute Extended spectrum beta lactamase (ESBL) resistance Acute 02/15/16 Fever Acute History of pneumonia Acute Hypotension Acute Hypoxemia Acute Hypoxia Acute Leukocytosis Acute Lung infiltrate Acute Mitral valve replaced Acute Palliative care encounter Acute Pneumonia Acute Pneumonia Acute Pneumonia Acute Pneumonia due to Pseudomonas Acute Renal failure Acute Renal transplant recipient Acute Sepsis Acute Severe sepsis Acute Severe sepsis Acute Shortness of breath Acute VRE (vancomycin-resistant Enterococci) Acute 01/11/16 Weakness Acute
--- NOTE | 2016-07-14 17:43 | PCMIDPN ---
Assessment/Plan: Assessment/Plan: * Recurrent pseudomonal pneumonia which is multilobar: Bronchoscopy cultures from 07/10/2016 are no growth. No further fever since changing antibiotic therapy to Zosyn. Chest x-ray shows increasing left pleural effusion - Dr. Larkin note reviewed with plans for thoracentesis and dialysis tomorrow. * C difficile colitis: Continue suppressive oral vancomycin twice daily while on broad-spectrum antibiotic therapy. * Hypogammaglobulinemia: Adequate IgG level post IVIG. 07/14/16 17:41 Subjective: Patient complains of increasing shortness of breath and dyspnea with exertion. Feels like he can clear secretions as well. No diarrhea. Objective: Vital Signs Temp Pulse Resp BP Pulse Ox 36.7 C 63 14 126/69 H 99 07/14/16 16:00 07/14/16 16:08 07/14/16 16:08 07/14/16 16:00 07/14/16 16:08 Microbiology 07/08/16 13:25 Blood Culture - Final Blood 07/08/16 13:05 Blood Culture - Final Blood Laboratory Results 07/14/16 05:40 07/14/16 05:40 07/13/16 07/14/16 07/15/16 05:59 05:59 05:59 Intake Total 300 Balance 300 Zosyn # 4 BAL cultures no growth Chest x-ray with increasing left pleural effusion - Physical Exam General Appearance: alert, no apparent distress EENT: pharynx normal, No thrush Respiratory: crackles (Left base) Cardiac/Chest: irregularly irregular Abdomen: non-tender, No distended ICD10 Worksheet Patient Problems: Problems Problem Status Onset Weakness Acute Anemia Acute C. difficile diarrhea Acute ~06/18/16 CHF (congestive heart failure) Acute Chronic Disease Mgmt/Transitional Care Acute Chronic Disease Mgmt/Transitional Care Acute Chronic pneumonia Acute Chronic renal failure Acute Dehydration Acute Dialysis complication Acute ESBL (extended spectrum beta-lactamase) producing bacteria infection Acute Extended spectrum beta lactamase (ESBL) resistance Acute 02/15/16 Fever Acute History of pneumonia Acute Hypotension Acute Hypoxemia Acute Hypoxia Acute Leukocytosis Acute Lung infiltrate Acute Mitral valve replaced Acute Palliative care encounter Acute Pneumonia Acute Pneumonia Acute Pneumonia Acute Pneumonia due to Pseudomonas Acute Renal failure Acute Renal transplant recipient Acute Sepsis Acute Severe sepsis Acute Severe sepsis Acute Shortness of breath Acute VRE (vancomycin-resistant Enterococci) Acute 01/11/16 Weakness Acute
[2016-07-14] MEDS: MONTELUKAST SODIUM 10 MG TAB PO SCH (17:49)
[2016-07-14] MEDS: TIOTROPIUM INHALER 18 MCG/DOSE 5 DOSE/MDI IH SCH (19:44)
[2016-07-14] MEDS: traZODone 50 MG TAB PO PRN (20:54)
[2016-07-15] MEDS: LEVALBUTEROL 1.25 MG/3 ML DEYVIAL IH PRN ×3 (00:09→15:13)
[2016-07-15] MEDS: NYSTATIN SUSP 500000 UNIT/5 ML UDCUP PO SCH ×4 (05:18→21:06)
[2016-07-15] MEDS: PIPERACILLIN/TAZO 2.25 GM/DEX 50 ML IV SCH ×3 (05:18→21:07)
[2016-07-15 05:27] LABS: % IMMATURE GRANULYOCYTES 0.3 % (0.0-1.1); ABSOLUTE IMMATURE GRANULOCYTES 0.02 10^3/uL (0.00-0.10); ADD DIFF? NO; ADD MORPH? NO; ADD SCAN? NO; ATYPICAL LYMPHOCYTE FLAG 0 (0-99); FRAGMENT RBC FLAG 0 (0-99); HEMOGLOBIN 7.2 g/dL (13.7-17.5); LEFT SHIFT FLG 0 (0-99); LIPEMIA HEMOLYSIS FLAG 80 (0-99); MEAN CELL HEMOGLOBIN 30.4 pg (27.9-34.1); MEAN CELL VOLUME 101.3 fL (81.5-99.8); MEAN PLATELET VOLUME 9.7 fL (8.7-11.7); PLATELET CLUMPS FLAG 0 (0-99); PLATELET COUNT 140 10^3/uL (150-400); RED BLOOD CELL COUNT 2.37 10^6/uL (4.40-6.38); RED CELL DISTRIBUTION WIDTH 14.6 % (11.5-15.2)
[2016-07-15 05:42] LABS: INR 1.15 (0.83-1.16); PROTIME(PATIENT) 14.7 SEC (12.0-15.0)
[2016-07-15 05:43] LABS: APTT 41.3 SEC (23.0-38.0)
[2016-07-15 06:06] LABS: ALBUMIN 2.4 g/dL (3.5-5.0); ANION GAP 13 mEq/L (8-16); CALCIUM 8.6 mg/dL (8.5-10.4); CARBON DIOXIDE 27 mEq/l (22-31); CHLORIDE 97 mEq/L (97-110); CREATININE 4.1 mg/dL (0.7-1.3); GLOMERULAR FILTRATION RATE 15; GLUCOSE 101 mg/dL (70-100); POTASSIUM 4.9 mEq/L (3.5-5.2); SODIUM 137 mEq/L (134-144)
[2016-07-15] MEDS: LEVALBUTEROL 1.25 MG/3 ML DEYVIAL IH SCH ×2 (07:28→22:23)
[2016-07-15] MEDS: LEVALBUTEROL INHALER 200 PUFFS/15 GM MDI IH SCH ×2 (07:28→22:24)
[2016-07-15] MEDS: Mometasone/Formoterol [Dulera 200 Mcg/5 Mcg Inhaler] IH SCH ×2 (07:29→22:24)
[2016-07-15] MEDS: SODIUM POLYSTYRENE SULF 454 GM POWDER PO SCH (08:43)
[2016-07-15] MEDS: MULTIVITAMINS 1 EACH TAB PO SCH (08:43)
[2016-07-15] MEDS: hydrOXYzine HCL 25 MG TAB PO SCH ×2 (08:43→20:53)
[2016-07-15] MEDS: CALCIUM ACETATE 667 MG CAP PO SCH ×3 (08:43→17:24)
[2016-07-15] MEDS: CARVEDILOL 6.25 MG TAB PO SCH ×2 (08:43→17:24)
[2016-07-15] MEDS: guaiFENesin 600 MG TAB.ER PO SCH ×2 (08:43→20:52)
[2016-07-15] MEDS: AMIODARONE HCL 200 MG TAB PO SCH ×2 (08:43→20:52)
[2016-07-15] MEDS: VANCOMYCIN 125 MG/2.5 ML UDL PO SCH ×2 (08:43→20:52)
[2016-07-15] MEDS: predniSONE 5 MG TAB PO SCH (08:43)
[2016-07-15] MEDS: ONDANSETRON 4 MG/2 ML VIAL IVP PRN (08:55)
[2016-07-15] MEDS ORDERED: LIDOCAINE 1% 30 ML SDV ONE (09:50)
[2016-07-15] MEDS ORDERED: NA BICARBONATE 50 MEQ/50 ML VIAL ONE (09:50)
--- NOTE | 2016-07-15 11:07 | SOAPPROG ---
SOAP Progress Note Assessment/Plan: Assessment/Plan: ESRD: failed renal transplant, on HD MWF as an outpatient. - HD last done on Friday. - Will plan on HD on Friday. h/o renal transplant: failed, now off tacrolimus, still on prednisone. Anemia: pt on epo. Hyperkalemia: managed with HD and daily Kionex. NAS: Phos 4.5, continue calcium acetate with meals. Hypervolemia: will modulate on HD. Subjective: Pt reports that his breathing felt more constricted overnight, is worried about his fluid status. He would like more fluid removed from him on HD. He is awaiting a thoracentesis today. Objective: Vital Signs Temp Pulse Resp BP Pulse Ox 36.4 C 66 18 121/64 H 98 07/15/16 08:00 07/15/16 08:00 07/15/16 08:00 07/15/16 08:00 07/15/16 08:00 Microbiology 07/08/16 13:25 Blood Culture - Final Blood 07/08/16 13:05 Blood Culture - Final Blood Laboratory Results 07/15/16 05:15 07/15/16 05:15 PT 14.7 SEC (12.0-15.0) 07/15/16 05:15 INR 1.15 (0.83-1.16) 07/15/16 05:15 General: alert and oriented, no acute distress Eyes; EOMI, PERRL OP: Clear CV: RRR Resp: nonlabored respirations on NC Abd: Soft, NT Ext: +1 edema BLE Neuro: CN II-XII grossly intact, no asterixis Psych: cooperative, appropriate mood and affect ICD10 Worksheet Patient Problems: Problems Problem Status Onset Weakness Acute Anemia Acute C. difficile diarrhea Acute ~06/18/16 CHF (congestive heart failure) Acute Chronic Disease Mgmt/Transitional Care Acute Chronic Disease Mgmt/Transitional Care Acute Chronic pneumonia Acute Chronic renal failure Acute Dehydration Acute Dialysis complication Acute ESBL (extended spectrum beta-lactamase) producing bacteria infection Acute Extended spectrum beta lactamase (ESBL) resistance Acute 02/15/16 Fever Acute History of pneumonia Acute Hypotension Acute Hypoxemia Acute Hypoxia Acute Leukocytosis Acute Lung infiltrate Acute Mitral valve replaced Acute Palliative care encounter Acute Pneumonia Acute Pneumonia Acute Pneumonia Acute Pneumonia due to Pseudomonas Acute Renal failure Acute Renal transplant recipient Acute Sepsis Acute Severe sepsis Acute Severe sepsis Acute Shortness of breath Acute VRE (vancomycin-resistant Enterococci) Acute 01/11/16 Weakness Acute
[2016-07-15 12:39] LABS: LD, PLEURAL FLUID 296 IU/L
--- NOTE | 2016-07-15 14:15 | SOAPPROG ---
SOAP Progress Note Assessment/Plan: Assessment/Plan: * Pneumonia: Multilobar, but seems to be back to baseline. Not a lot of secretions at this point. Cultures from my recent bronchoscopy all remain negative. He did have significant mucus present at that time. * Enlarging left-sided pleural effusion. -status post thoracentesis * Respiratory-patient states markedly improved after thoracentesis * Hypogammaglobulinemia: Dosed with IVIG last week * CKD: On regularly scheduled HD * History of C.Diff Subjective: Sitting up in chair. States he is breathing more comfortably after thoracentesis. He denies any chest pain Objective: Vital Signs Temp Pulse Resp BP Pulse Ox 36.4 C 66 18 121/64 H 97 07/15/16 08:00 07/15/16 08:00 07/15/16 08:00 07/15/16 08:00 07/15/16 13:46 Laboratory Results 07/15/16 05:15 07/15/16 05:15 PT 14.7 SEC (12.0-15.0) 07/15/16 05:15 INR 1.15 (0.83-1.16) 07/15/16 05:15 Physical Exam - Physical Exam General Appearance: alert, no apparent distress EENT: PERRL/EOMI, normal ENT inspection Neck: non-tender, full range of motion, supple, normal inspection Respiratory: crackles (Bibas[place]), No respiratory distress, No stridor, No wheezing Cardiac/Chest: normal peripheral pulses, regular rate, rhythm Peripheral Pulses: 2+: carotid (R), carotid (L), femoral (R), femoral (L), dorsalis-pedis (R), dorsalis-pedis (L) Abdomen: normal bowel sounds, non-tender, soft Male Genitalia: deferred Rectal: deferred Skin: normal color, warm/dry ICD10 Worksheet Patient Problems: Problems Problem Status Onset Weakness Acute Anemia Acute C. difficile diarrhea Acute ~06/18/16 CHF (congestive heart failure) Acute Chronic Disease Mgmt/Transitional Care Acute Chronic Disease Mgmt/Transitional Care Acute Chronic pneumonia Acute Chronic renal failure Acute Dehydration Acute Dialysis complication Acute ESBL (extended spectrum beta-lactamase) producing bacteria infection Acute Extended spectrum beta lactamase (ESBL) resistance Acute 02/15/16 Fever Acute History of pneumonia Acute Hypotension Acute Hypoxemia Acute Hypoxia Acute Leukocytosis Acute Lung infiltrate Acute Mitral valve replaced Acute Palliative care encounter Acute Pneumonia Acute Pneumonia Acute Pneumonia Acute Pneumonia due to Pseudomonas Acute Renal failure Acute Renal transplant recipient Acute Sepsis Acute Severe sepsis Acute Severe sepsis Acute Shortness of breath Acute VRE (vancomycin-resistant Enterococci) Acute 01/11/16 Weakness Acute
--- NOTE | 2016-07-15 16:56 | PCMIDPN ---
Assessment/Plan: Assessment/Plan: * Recurrent pseudomonal pneumonia which is multilobar: Bronchoscopy cultures from 07/10/2016 are no growth. Feels better post thoracentesis earlier today. Pleural fluid with 114 white blood cells which are lymphocyte predominant. Pleural fluid total protein to serum protein ratio at 0.51 which is borderline value between transudate and exudate. No further fever. Continue Zosyn. * C difficile colitis: Continue suppressive oral vancomycin twice daily while on broad-spectrum antibiotic therapy. * Hypogammaglobulinemia: Adequate IgG level post IVIG. 07/15/16 16:50 Subjective: Patient breathing easier post removal of 800 mL of pleural fluid. Cough during the night but less today. No diarrhea. Objective: Vital Signs Temp Pulse Resp BP Pulse Ox 36.5 C 57 L 16 132/72 H 100 07/15/16 16:00 07/15/16 16:00 07/15/16 16:00 07/15/16 16:00 07/15/16 16:00 Microbiology 07/15/16 11:20 Gram Stain - Final Thoracic Fluid - Aspirate Laboratory Results 07/15/16 05:15 07/15/16 05:15 Zosyn # 5 Oral vancomycin suppression twice daily Laboratory Tests 07/15/16 11:20 Pleural pH 7.5 Pleural WBC 114 Pleural RBC 2064 Pleural Neutrophils 4 Pleural Lymphocytes % 87 Pleural Total Protein 2.4 Pleural LDH 296 Pleural Glucose 100 - Physical Exam General Appearance: alert, no apparent distress EENT: pharynx normal, No thrush Respiratory: crackles (Bibasilar with improved air movement left base) Cardiac/Chest: regular rate, rhythm, systolic murmur Abdomen: non-tender, No distended ICD10 Worksheet Patient Problems: Problems Problem Status Onset Dehydration Acute Dialysis complication Acute Weakness Acute C. difficile diarrhea Acute ~06/18/16 Chronic Disease Mgmt/Transitional Care Acute Pneumonia Acute Mitral valve replaced Acute Extended spectrum beta lactamase (ESBL) resistance Acute 02/15/16 Renal transplant recipient Acute Chronic renal failure Acute CHF (congestive heart failure) Acute Anemia Acute Hypoxemia Acute Renal failure Acute Shortness of breath Acute Lung infiltrate Acute Hypotension Acute Severe sepsis Acute Pneumonia due to Pseudomonas Acute Hypoxia Acute Sepsis Acute Chronic Disease Mgmt/Transitional Care Acute Fever Acute History of pneumonia Acute VRE (vancomycin-resistant Enterococci) Acute 01/11/16 Palliative care encounter Acute Weakness Acute Chronic pneumonia Acute ESBL (extended spectrum beta-lactamase) producing bacteria infection Acute Leukocytosis Acute Pneumonia Acute Severe sepsis Acute Pneumonia Acute
--- NOTE | 2016-07-15 17:09 | HOSPPROG ---
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 s/p failed kidney transplant -continue dialysis -prednisone for chronic rejection * Acute respiratory failure - poor secretion management * IgG deficiency -IVIG q 4 weeks - last 06/28 * Afib -amio, coreg -poorly tolerant of anticoagulation * Cdiff -s/p 14 days tx - continue BID until 1 week off abx * Severe protein calorie malnutrition * Bioprosthetic mitral valve replacement Subjective: No new complaints. Bad night with SOB, hoping will be better tonight post thoracentesis Objective: Vital Signs Temp Pulse Resp BP Pulse Ox 36.5 C 57 L 16 132/72 H 100 07/15/16 16:00 07/15/16 16:00 07/15/16 16:00 07/15/16 16:00 07/15/16 16:00 Microbiology 07/15/16 11:20 Gram Stain - Final Thoracic Fluid - Aspirate Laboratory Results 07/15/16 05:15 07/15/16 05:15 PT 14.7 SEC (12.0-15.0) 07/15/16 05:15 INR 1.15 (0.83-1.16) 07/15/16 05:15 CXR viewed post paracentesis, my personal interpretation is - minimal residual effusion CT chest reviewed - acute on chronic pneumonia - Physical Exam Constitutional: no apparent distress, appears nourished, not in pain Cardiovascular: regular rate and rhythym, no murmur, rub, or gallop Respiratory: no respiratory distress, no rales or rhonchi, clear to auscultation Gastrointestinal: normoactive bowel sounds, soft, non-tender abdomen, no palpable masses Skin: no rashes or abrasions, no fluctuance, no induration Psychiatric: interacting appropriately, not anxious, not encephalopathic, thought process linear ICD10 Worksheet Patient Problems: Problems Problem Status Onset Weakness Acute Anemia Acute C. difficile diarrhea Acute ~06/18/16 CHF (congestive heart failure) Acute Chronic Disease Mgmt/Transitional Care Acute Chronic Disease Mgmt/Transitional Care Acute Chronic pneumonia Acute Chronic renal failure Acute Dehydration Acute Dialysis complication Acute ESBL (extended spectrum beta-lactamase) producing bacteria infection Acute Extended spectrum beta lactamase (ESBL) resistance Acute 02/15/16 Fever Acute History of pneumonia Acute Hypotension Acute Hypoxemia Acute Hypoxia Acute Leukocytosis Acute Lung infiltrate Acute Mitral valve replaced Acute Palliative care encounter Acute Pneumonia Acute Pneumonia Acute Pneumonia Acute Pneumonia due to Pseudomonas Acute Renal failure Acute Renal transplant recipient Acute Sepsis Acute Severe sepsis Acute Severe sepsis Acute Shortness of breath Acute VRE (vancomycin-resistant Enterococci) Acute 01/11/16 Weakness Acute
[2016-07-15] MEDS: MONTELUKAST SODIUM 10 MG TAB PO SCH (17:24)
[2016-07-15 19:46] LABS: LACTATE DEHYDROGENASE 412 IU/L (313-618)
[2016-07-15] MEDS: HEPARIN 5,000 UNIT/0.5 ML SYR SC SCH (21:47)
[2016-07-15] MEDS: TIOTROPIUM INHALER 18 MCG/DOSE 5 DOSE/MDI IH SCH (22:23)
[2016-07-16] MEDS: PIPERACILLIN/TAZO 2.25 GM/DEX 50 ML IV SCH ×3 (05:03→22:22)
[2016-07-16] MEDS: NYSTATIN SUSP 500000 UNIT/5 ML UDCUP PO SCH ×4 (05:03→21:26)
[2016-07-16] MEDS: HEPARIN 5,000 UNIT/0.5 ML SYR SC SCH ×3 (05:26→21:31)
[2016-07-16 06:06] LABS: ALBUMIN 2.2 g/dL (3.5-5.0); ANION GAP 10 mEq/L (8-16); CALCIUM 8.3 mg/dL (8.5-10.4); CARBON DIOXIDE 28 mEq/l (22-31); CHLORIDE 96 mEq/L (97-110); CREATININE 4.8 mg/dL (0.7-1.3); GLOMERULAR FILTRATION RATE 12; GLUCOSE 83 mg/dL (70-100); POTASSIUM 5.7 mEq/L (3.5-5.2); SODIUM 134 mEq/L (134-144)
[2016-07-16] MEDS: LEVALBUTEROL 1.25 MG/3 ML DEYVIAL IH SCH (09:48)
[2016-07-16] MEDS: Mometasone/Formoterol [Dulera 200 Mcg/5 Mcg Inhaler] IH SCH (10:12)
[2016-07-16] MEDS: LEVALBUTEROL INHALER 200 PUFFS/15 GM MDI IH SCH (10:12)
--- NOTE | 2016-07-16 12:15 | SOAPPROG ---
SOAP Progress Note Assessment/Plan: Assessment: 1. Recurrent Pseudomonal Pneumonia ID following. He is clinically better. Possible inhaled Tobra following completion of IV antibx 2. ESRD Stable HD today. Again tomorrow to put back on schedule given impending DC. Subjective: Doing better Objective: Vital Signs Temp Pulse Resp BP Pulse Ox 36.4 C 64 18 142/60 H 96 07/16/16 07:52 07/16/16 09:48 07/16/16 07:52 07/16/16 07:52 07/16/16 09:48 Microbiology 07/15/16 11:20 Gram Stain - Final Thoracic Fluid - Aspirate Laboratory Results 07/15/16 05:15 07/16/16 05:09 07/15/16 07/16/16 07/17/16 05:59 05:59 05:59 Intake Total 151 Balance 151 PT 14.7 SEC (12.0-15.0) 07/15/16 05:15 INR 1.15 (0.83-1.16) 07/15/16 05:15 Physical Exam - Physical Exam General Appearance: no apparent distress, cachetic Respiratory: crackles (RLL) Cardiac/Chest: regular rate, rhythm Extremities: pedal edema Neuro/Psych: oriented x 3 ICD10 Worksheet Patient Problems: Problems Problem Status Onset Weakness Acute Anemia Acute C. difficile diarrhea Acute ~06/18/16 CHF (congestive heart failure) Acute Chronic Disease Mgmt/Transitional Care Acute Chronic Disease Mgmt/Transitional Care Acute Chronic pneumonia Acute Chronic renal failure Acute Dehydration Acute Dialysis complication Acute ESBL (extended spectrum beta-lactamase) producing bacteria infection Acute Extended spectrum beta lactamase (ESBL) resistance Acute 02/15/16 Fever Acute History of pneumonia Acute Hypotension Acute Hypoxemia Acute Hypoxia Acute Leukocytosis Acute Lung infiltrate Acute Mitral valve replaced Acute Palliative care encounter Acute Pneumonia Acute Pneumonia Acute Pneumonia Acute Pneumonia due to Pseudomonas Acute Renal failure Acute Renal transplant recipient Acute Sepsis Acute Severe sepsis Acute Severe sepsis Acute Shortness of breath Acute VRE (vancomycin-resistant Enterococci) Acute 01/11/16 Weakness Acute
[2016-07-16] MEDS: CALCIUM ACETATE 667 MG CAP PO SCH ×3 (12:38→18:25)
[2016-07-16] MEDS: CARVEDILOL 6.25 MG TAB PO SCH ×2 (12:39→21:31)
[2016-07-16] MEDS: AMIODARONE HCL 200 MG TAB PO SCH ×2 (12:41→21:27)
[2016-07-16] MEDS: guaiFENesin 600 MG TAB.ER PO SCH ×2 (12:42→21:26)
[2016-07-16] MEDS: hydrOXYzine HCL 25 MG TAB PO SCH ×2 (12:42→21:26)
[2016-07-16] MEDS: MULTIVITAMINS 1 EACH TAB PO SCH (12:42)
[2016-07-16] MEDS: predniSONE 5 MG TAB PO SCH (12:42)
[2016-07-16] MEDS: SODIUM POLYSTYRENE SULF 454 GM POWDER PO SCH (12:45)
[2016-07-16] MEDS: VANCOMYCIN 125 MG/2.5 ML UDL PO SCH ×2 (12:49→21:26)
--- NOTE | 2016-07-16 13:30 | SOAPPROG ---
SOAP Progress Note Assessment/Plan: Assessment/Plan: * Pneumonia: Multilobar, but seems to be back to baseline. Not a lot of secretions at this point. Bronch cultures negative -improved clinically * Enlarging left-sided pleural effusion. -status post thoracentesis * Respiratory-patient states markedly improved after thoracentesis * Hypogammaglobulinemia: Dosed with IVIG last week * CKD: On regularly scheduled HD * History of C.Diff * Disposition-home soon Subjective: Up in chair eating. Appetite markedly better. Cough has improved. Objective: Vital Signs Temp Pulse Resp BP Pulse Ox 36.4 C 64 18 128/64 H 96 07/16/16 07:52 07/16/16 12:39 07/16/16 07:52 07/16/16 12:39 07/16/16 09:48 Microbiology 07/10/16 18:35 Mycobacterial Smear ([facility]Y) - Final Lung Bilateral - Bronchial Washings 07/03/16 14:10 Mycobacterial Smear (CASEY) - Final Lung Right Upper Lobe - Bronchial Washings 07/15/16 11:20 Gram Stain - Final Thoracic Fluid - Aspirate Laboratory Results 07/15/16 05:15 07/16/16 05:09 07/15/16 07/16/16 07/17/16 05:59 05:59 05:59 Intake Total 151 Balance 151 PT 14.7 SEC (12.0-15.0) 07/15/16 05:15 INR 1.15 (0.83-1.16) 07/15/16 05:15 Physical Exam - Physical Exam General Appearance: alert, no apparent distress EENT: PERRL/EOMI, normal ENT inspection Neck: non-tender, full range of motion, supple, normal inspection Respiratory: crackles, No respiratory distress, No stridor, No wheezing Cardiac/Chest: normal peripheral pulses, regular rate, rhythm Peripheral Pulses: 2+: carotid (R), carotid (L), femoral (R), femoral (L), dorsalis-pedis (R), dorsalis-pedis (L) Abdomen: normal bowel sounds, non-tender, soft Male Genitalia: deferred Rectal: deferred Skin: normal color, warm/dry Extremities: normal range of motion, non-tender, normal inspection, normal capillary refill ICD10 Worksheet Patient Problems: Problems Problem Status Onset Weakness Acute Anemia Acute C. difficile diarrhea Acute ~06/18/16 CHF (congestive heart failure) Acute Chronic Disease Mgmt/Transitional Care Acute Chronic Disease Mgmt/Transitional Care Acute Chronic pneumonia Acute Chronic renal failure Acute Dehydration Acute Dialysis complication Acute ESBL (extended spectrum beta-lactamase) producing bacteria infection Acute Extended spectrum beta lactamase (ESBL) resistance Acute 02/15/16 Fever Acute History of pneumonia Acute Hypotension Acute Hypoxemia Acute Hypoxia Acute Leukocytosis Acute Lung infiltrate Acute Mitral valve replaced Acute Palliative care encounter Acute Pneumonia Acute Pneumonia Acute Pneumonia Acute Pneumonia due to Pseudomonas Acute Renal failure Acute Renal transplant recipient Acute Sepsis Acute Severe sepsis Acute Severe sepsis Acute Shortness of breath Acute VRE (vancomycin-resistant Enterococci) Acute 01/11/16 Weakness Acute
--- NOTE | 2016-07-16 13:55 | HOSPPROG ---
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 s/p failed kidney transplant -continue dialysis -prednisone for chronic rejection * Acute respiratory failure - poor secretion management * IgG deficiency -IVIG q 4 weeks - last 06/28 * Afib -amio, coreg -poorly tolerant of anticoagulation * Cdiff -s/p 14 days tx - continue BID until 1 week off abx * Severe protein calorie malnutrition * Bioprosthetic mitral valve replacement Subjective: Feeling much less SOB after thora yesterday Objective: Vital Signs Temp Pulse Resp BP Pulse Ox 36.4 C 64 18 128/64 H 96 07/16/16 07:52 07/16/16 12:39 07/16/16 07:52 07/16/16 12:39 07/16/16 09:48 Microbiology 07/10/16 18:35 Mycobacterial Smear (CASEY) - Final Lung Bilateral - Bronchial Washings 07/03/16 14:10 Mycobacterial Smear (CASEY) - Final Lung Right Upper Lobe - Bronchial Washings 07/15/16 11:20 Gram Stain - Final Thoracic Fluid - Aspirate Laboratory Results 07/15/16 05:15 07/16/16 05:09 07/15/16 07/16/16 07/17/16 05:59 05:59 05:59 Intake Total 151 Balance 151 PT 14.7 SEC (12.0-15.0) 07/15/16 05:15 INR 1.15 (0.83-1.16) 07/15/16 05:15 d/w Dr. Lange regarding discharge antibiotic plan - likely prolonged IV abx needed - Physical Exam Constitutional: no apparent distress, appears nourished, not in pain Cardiovascular: regular rate and rhythym, no murmur, rub, or gallop Respiratory: no respiratory distress, no rales or rhonchi, clear to auscultation Gastrointestinal: normoactive bowel sounds, soft, non-tender abdomen, no palpable masses Skin: no rashes or abrasions, no fluctuance, no induration Neurologic: AAOx3, sensation intact bilaterally Psychiatric: interacting appropriately, not anxious, not encephalopathic, thought process linear ICD10 Worksheet Patient Problems: Problems Problem Status Onset Weakness Acute Anemia Acute C. difficile diarrhea Acute ~06/18/16 CHF (congestive heart failure) Acute Chronic Disease Mgmt/Transitional Care Acute Chronic Disease Mgmt/Transitional Care Acute Chronic pneumonia Acute Chronic renal failure Acute Dehydration Acute Dialysis complication Acute ESBL (extended spectrum beta-lactamase) producing bacteria infection Acute Extended spectrum beta lactamase (ESBL) resistance Acute 02/15/16 Fever Acute History of pneumonia Acute Hypotension Acute Hypoxemia Acute Hypoxia Acute Leukocytosis Acute Lung infiltrate Acute Mitral valve replaced Acute Palliative care encounter Acute Pneumonia Acute Pneumonia Acute Pneumonia Acute Pneumonia due to Pseudomonas Acute Renal failure Acute Renal transplant recipient Acute Sepsis Acute Severe sepsis Acute Severe sepsis Acute Shortness of breath Acute VRE (vancomycin-resistant Enterococci) Acute 01/11/16 Weakness Acute
[2016-07-16] MEDS: LEVALBUTEROL 1.25 MG/3 ML DEYVIAL IH PRN ×2 (14:01→20:37)
--- NOTE | 2016-07-16 14:17 | PCMIDPN ---
Assessment/Plan: Assessment/Plan: 1. Multilobar pneumonia secondary to PsA: - Previously on Merem. Changed to Zosyn on 07/11/16. -Since then no fevers. - wbc improved. malaise improved - blood cx so far ngtd -CXr noted. -Received IVIG this admit. Pt wants Immunoglobulin levels monitored more frequently. -Hesitate to use levaquin given patient on amiodarone and trazadone. -Could change to Cefepime 1g daily, renally dosed to complete therapy. 2. C. diff: -positive on 06/18/16 -completed treatment dosing on 07/12/16 - Currently on oral vanco q12 from 07/12/16.--suppressive therapy. -formed stools. - see below regarding contact isolation. 3. Hx ESBL E.coli infection": -last positive cx was on 02/28/16 - continue contact isolation meds vanco PO 125gm q12- 07/12/16 zosyn 2,25gm q8- 07/11/16 Subjective: no fevers for several days now. Breathing better. weak but overall feels better. states he has had formed stools for several days now. denies abd pain. Smiled several times during our conversation. Objective: Vital Signs Temp Pulse Resp BP Pulse Ox 36.4 C 64 18 128/64 H 96 07/16/16 07:52 07/16/16 12:39 07/16/16 07:52 07/16/16 12:39 07/16/16 09:48 Microbiology 07/10/16 18:35 Mycobacterial Smear ([facility]Y) - Final Lung Bilateral - Bronchial Washings 07/03/16 14:10 Mycobacterial Smear (CASEY) - Final Lung Right Upper Lobe - Bronchial Washings 07/15/16 11:20 Gram Stain - Final Thoracic Fluid - Aspirate Laboratory Results 07/15/16 05:15 07/16/16 05:09 07/15/16 07/16/16 07/17/16 05:59 05:59 05:59 Intake Total 151 Balance 151 - Physical Exam General Appearance: alert, no apparent distress Respiratory: coarse breath sounds Cardiac/Chest: regular rate, rhythm Extremities: No swelling Abdomen: normal bowel sounds, non-tender, soft, No distended Skin: No erythema ICD10 Worksheet Patient Problems: Problems Problem Status Onset Weakness Acute Anemia Acute C. difficile diarrhea Acute ~06/18/16 CHF (congestive heart failure) Acute Chronic Disease Mgmt/Transitional Care Acute Chronic Disease Mgmt/Transitional Care Acute Chronic pneumonia Acute Chronic renal failure Acute Dehydration Acute Dialysis complication Acute ESBL (extended spectrum beta-lactamase) producing bacteria infection Acute Extended spectrum beta lactamase (ESBL) resistance Acute 02/15/16 Fever Acute History of pneumonia Acute Hypotension Acute Hypoxemia Acute Hypoxia Acute Leukocytosis Acute Lung infiltrate Acute Mitral valve replaced Acute Palliative care encounter Acute Pneumonia Acute Pneumonia Acute Pneumonia Acute Pneumonia due to Pseudomonas Acute Renal failure Acute Renal transplant recipient Acute Sepsis Acute Severe sepsis Acute Severe sepsis Acute Shortness of breath Acute VRE (vancomycin-resistant Enterococci) Acute 01/11/16 Weakness Acute
[2016-07-16] MEDS: MONTELUKAST SODIUM 10 MG TAB PO SCH (18:25)
[2016-07-16] MEDS ORDERED: HEPARIN 50,000 UNIT/10 ML VIAL ONE (18:45)
[2016-07-16] MEDS: TIOTROPIUM INHALER 18 MCG/DOSE 5 DOSE/MDI IH SCH (20:37)
[2016-07-16] MEDS: traZODone 50 MG TAB PO PRN (21:26)
[2016-07-17] MEDS: SODIUM CL FOR INH 10% 15 ML VIAL.NEB IH PRN (00:58)
[2016-07-17] MEDS: NYSTATIN SUSP 500000 UNIT/5 ML UDCUP PO SCH ×4 (05:23→21:15)
[2016-07-17] MEDS: PIPERACILLIN/TAZO 2.25 GM/DEX 50 ML IV SCH ×3 (05:23→22:59)
[2016-07-17] MEDS: HEPARIN 5,000 UNIT/0.5 ML SYR SC SCH ×3 (05:29→22:34)
[2016-07-17] MEDS: LEVALBUTEROL 1.25 MG/3 ML DEYVIAL IH PRN ×3 (06:01→23:07)
[2016-07-17 07:02] LABS: ALBUMIN 2.3 g/dL (3.5-5.0); ANION GAP 7 mEq/L (8-16); CALCIUM 7.6 mg/dL (8.5-10.4); CARBON DIOXIDE 30 mEq/l (22-31); CHLORIDE 98 mEq/L (97-110); CREATININE 3.2 mg/dL (0.7-1.3); GLOMERULAR FILTRATION RATE 20; GLUCOSE 81 mg/dL (70-100); SODIUM 135 mEq/L (134-144)
--- NOTE | 2016-07-17 11:18 | SOAPPROG ---
SOAP Progress Note Assessment/Plan: Assessment: 1. ESRD. HD done yesterday. Again today to get back on schedule. Still has some edema. Continue to challenge dry weight. 2. Hyperkalemia. On daily kionex. K restriction lifted. K 5. 3. Recurrent pneumonia. Bronch cultures negative except yeast. Continue abx per ID. Plan: 07/03/16 16:49 07/03/16 16:53 07/04/16 11:53 07/10/16 17:17 07/10/16 17:18 07/17/16 11:16 Subjective: Feels better overall but believes he is still retaining fluid. Seen and examined on dialysis. Objective: Vital Signs Temp Pulse Resp BP Pulse Ox 36.7 C 68 18 127/63 H 97 07/16/16 22:19 07/17/16 06:04 07/17/16 06:04 07/16/16 22:19 07/17/16 06:04 Microbiology 07/15/16 11:20 Gram Stain - Final Thoracic Fluid - Aspirate 07/11/16 17:23 Blood Culture - Final Blood 07/11/16 17:20 Blood Culture - Final Blood 07/10/16 18:35 Mycobacterial Smear ([facility]Y) - Final Lung Bilateral - Bronchial Washings 07/03/16 14:10 Mycobacterial Smear ([facility]Y) - Final Lung Right Upper Lobe - Bronchial Washings Laboratory Results 07/15/16 05:15 07/17/16 05:30 07/16/16 07/17/16 07/18/16 05:59 05:59 05:59 Intake Total 151 800 Balance 151 800 PT 14.7 SEC (12.0-15.0) 07/15/16 05:15 INR 1.15 (0.83-1.16) 07/15/16 05:15 RRR, no m/g/r Coarse rhonchi throughout Abdom soft, nt 1+ sacral pitting edema ICD10 Worksheet Patient Problems: Problems Problem Status Onset Dehydration Acute Dialysis complication Acute Weakness Acute C. difficile diarrhea Acute ~06/18/16 Chronic Disease Mgmt/Transitional Care Acute Pneumonia Acute Mitral valve replaced Acute Extended spectrum beta lactamase (ESBL) resistance Acute 02/15/16 Renal transplant recipient Acute Chronic renal failure Acute CHF (congestive heart failure) Acute Anemia Acute Hypoxemia Acute Renal failure Acute Shortness of breath Acute Lung infiltrate Acute Hypotension Acute Severe sepsis Acute Pneumonia due to Pseudomonas Acute Hypoxia Acute Sepsis Acute Chronic Disease Mgmt/Transitional Care Acute Fever Acute History of pneumonia Acute VRE (vancomycin-resistant Enterococci) Acute 01/11/16 Palliative care encounter Acute Weakness Acute Chronic pneumonia Acute ESBL (extended spectrum beta-lactamase) producing bacteria infection Acute Leukocytosis Acute Pneumonia Acute Severe sepsis Acute Pneumonia Acute
--- NOTE | 2016-07-17 11:40 | PCMIDPN ---
Assessment/Plan: # RUL PNA secondary PsA, Day 14 of therapy for PsA. CXR 07/15 plate like infiltrate remains RUL, LLL effusion much improved, faint infiltrate remains LLL. Still on more than baseline O2 requirement at 4L, AF, wbc normal on 07/15 --if goes to LTAC would complete 3 weeks with Zosyn, if goes home can give cefepime 2gm IV at HD to complete total 3 weeks # Fever: resolved after switch from meropenem to zosyn, possible drug reaction # Thrush: continue nystatin s/s as needed #IgG deficiency, last dose Gamunex 06/28/16, IgG mid 700s last week -- check IgG monthly #Recent Cdiff, no further diarrhea. on suppressive PO vancomycin while remains on broad spec abx #ESRD on HD: renal dose zosyn # Yeast on BAL likely reflects colonization # Thrombocytopenia: improving, could have also been part of drug reaction to meropenem meds Zosyn 2.25gm IV q8h micro 07/15 Pleural fluid: NGTD 07/10 BAL: gram stain neg for organism; yeast 07/08 blood cx (2) Pending 07/03 BAL : [facility]-S PsA, PJP smear neg 07/02 Histo An neg; influenza neg 07/01 Crypto An neg CMV PCR negative Subjective: feeling better still with cough Objective: Vital Signs Temp Pulse Resp BP Pulse Ox 36.7 C 68 18 127/63 H 97 07/16/16 22:19 07/17/16 06:04 07/17/16 06:04 07/16/16 22:19 07/17/16 06:04 Microbiology 07/15/16 11:20 Gram Stain - Final Thoracic Fluid - Aspirate 07/11/16 17:23 Blood Culture - Final Blood 07/11/16 17:20 Blood Culture - Final Blood 07/10/16 18:35 Mycobacterial Smear (CASEY) - Final Lung Bilateral - Bronchial Washings 07/03/16 14:10 Mycobacterial Smear (CASEY) - Final Lung Right Upper Lobe - Bronchial Washings Laboratory Results 07/15/16 05:15 07/17/16 05:30 07/16/16 07/17/16 07/18/16 05:59 05:59 05:59 Intake Total 151 800 Balance 151 800 Gen: thin chr ill appearing male, NAD, on HD CV: RRR Chest: better air movement, no wheezes or crackle anterior exam Abd: soft NT Ext no edema R HD cath c/d/i L UE PICC c/d/i ICD10 Worksheet Patient Problems: Problems Problem Status Onset Weakness Acute Anemia Acute C. difficile diarrhea Acute ~06/18/16 CHF (congestive heart failure) Acute Chronic Disease Mgmt/Transitional Care Acute Chronic Disease Mgmt/Transitional Care Acute Chronic pneumonia Acute Chronic renal failure Acute Dehydration Acute Dialysis complication Acute ESBL (extended spectrum beta-lactamase) producing bacteria infection Acute Extended spectrum beta lactamase (ESBL) resistance Acute 02/15/16 Fever Acute History of pneumonia Acute Hypotension Acute Hypoxemia Acute Hypoxia Acute Leukocytosis Acute Lung infiltrate Acute Mitral valve replaced Acute Palliative care encounter Acute Pneumonia Acute Pneumonia Acute Pneumonia Acute Pneumonia due to Pseudomonas Acute Renal failure Acute Renal transplant recipient Acute Sepsis Acute Severe sepsis Acute Severe sepsis Acute Shortness of breath Acute VRE (vancomycin-resistant Enterococci) Acute 01/11/16 Weakness Acute
[2016-07-17] MEDS: hydrOXYzine HCL 25 MG TAB PO SCH ×2 (12:24→21:15)
[2016-07-17] MEDS: MULTIVITAMINS 1 EACH TAB PO SCH (12:24)
[2016-07-17] MEDS: guaiFENesin 600 MG TAB.ER PO SCH ×2 (12:24→21:15)
[2016-07-17] MEDS: CALCIUM ACETATE 667 MG CAP PO SCH ×3 (12:25→18:31)
[2016-07-17] MEDS: SODIUM POLYSTYRENE SULF 454 GM POWDER PO SCH (12:25)
[2016-07-17] MEDS: predniSONE 5 MG TAB PO SCH (12:25)
[2016-07-17] MEDS: AMIODARONE HCL 200 MG TAB PO SCH ×2 (12:26→21:15)
[2016-07-17] MEDS: CARVEDILOL 6.25 MG TAB PO SCH ×2 (12:26→18:32)
[2016-07-17] MEDS: VANCOMYCIN 125 MG/2.5 ML UDL PO SCH ×2 (12:28→21:14)
--- NOTE | 2016-07-17 17:10 | HOSPPROG ---
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 s/p failed kidney transplant -continue dialysis -prednisone for chronic rejection * Acute respiratory failure - poor secretion management * IgG deficiency -IVIG q 4 weeks - last 06/28 * Afib -amio, coreg -poorly tolerant of anticoagulation * Cdiff -s/p 14 days tx - continue BID until 1 week off abx * Severe protein calorie malnutrition * Bioprosthetic mitral valve replacement Now agreeable to [facility] - will ask them to re-eval Subjective: feeling okay but weak Objective: Vital Signs Temp Pulse Resp BP Pulse Ox 37.0 C 65 18 115/62 97 07/17/16 15:19 07/17/16 15:19 07/17/16 15:19 07/17/16 15:19 07/17/16 15:19 Microbiology 07/15/16 11:20 Gram Stain - Final Thoracic Fluid - Aspirate 07/11/16 17:23 Blood Culture - Final Blood 07/11/16 17:20 Blood Culture - Final Blood 07/10/16 18:35 Mycobacterial Smear (CASEY) - Final Lung Bilateral - Bronchial Washings 07/03/16 14:10 Mycobacterial Smear (CASEY) - Final Lung Right Upper Lobe - Bronchial Washings Laboratory Results 07/15/16 05:15 07/17/16 05:30 07/16/16 07/17/16 07/18/16 05:59 05:59 05:59 Intake Total 151 800 Balance 151 800 PT 14.7 SEC (12.0-15.0) 07/15/16 05:15 INR 1.15 (0.83-1.16) 07/15/16 05:15 - Physical Exam Constitutional: no apparent distress, appears nourished, not in pain Cardiovascular: regular rate and rhythym, no murmur, rub, or gallop Respiratory: no respiratory distress, no rales or rhonchi, clear to auscultation Gastrointestinal: normoactive bowel sounds, soft, non-tender abdomen, no palpable masses Skin: no rashes or abrasions, no fluctuance, no induration Neurologic: AAOx3, sensation intact bilaterally Psychiatric: interacting appropriately, not anxious, not encephalopathic, thought process linear ICD10 Worksheet Patient Problems: Problems Problem Status Onset Weakness Acute Anemia Acute C. difficile diarrhea Acute ~06/18/16 CHF (congestive heart failure) Acute Chronic Disease Mgmt/Transitional Care Acute Chronic Disease Mgmt/Transitional Care Acute Chronic pneumonia Acute Chronic renal failure Acute Dehydration Acute Dialysis complication Acute ESBL (extended spectrum beta-lactamase) producing bacteria infection Acute Extended spectrum beta lactamase (ESBL) resistance Acute 02/15/16 Fever Acute History of pneumonia Acute Hypotension Acute Hypoxemia Acute Hypoxia Acute Leukocytosis Acute Lung infiltrate Acute Mitral valve replaced Acute Palliative care encounter Acute Pneumonia Acute Pneumonia Acute Pneumonia Acute Pneumonia due to Pseudomonas Acute Renal failure Acute Renal transplant recipient Acute Sepsis Acute Severe sepsis Acute Severe sepsis Acute Shortness of breath Acute VRE (vancomycin-resistant Enterococci) Acute 01/11/16 Weakness Acute
[2016-07-17] MEDS ORDERED: HEPARIN 50,000 UNIT/10 ML VIAL ONE (18:15)
[2016-07-17] MEDS: MONTELUKAST SODIUM 10 MG TAB PO SCH (18:31)
[2016-07-17] MEDS: traZODone 50 MG TAB PO PRN (21:15)
[2016-07-17] MEDS: TIOTROPIUM INHALER 18 MCG/DOSE 5 DOSE/MDI IH SCH (23:07)
[2016-07-18] MEDS: HEPARIN 5,000 UNIT/0.5 ML SYR SC SCH ×2 (05:07→14:32)
[2016-07-18] MEDS: NYSTATIN SUSP 500000 UNIT/5 ML UDCUP PO SCH ×2 (05:24→12:49)
[2016-07-18] MEDS: PIPERACILLIN/TAZO 2.25 GM/DEX 50 ML IV SCH ×2 (05:24→14:31)
[2016-07-18] MEDS: LEVALBUTEROL 1.25 MG/3 ML DEYVIAL IH PRN ×2 (05:35→11:22)
[2016-07-18] MEDS: hydrOXYzine HCL 25 MG TAB PO SCH (08:48)
[2016-07-18] MEDS: guaiFENesin 600 MG TAB.ER PO SCH (08:48)
[2016-07-18] MEDS: MULTIVITAMINS 1 EACH TAB PO SCH (08:48)
[2016-07-18] MEDS: VANCOMYCIN 125 MG/2.5 ML UDL PO SCH (08:48)
[2016-07-18] MEDS: CARVEDILOL 6.25 MG TAB PO SCH (08:48)
[2016-07-18] MEDS: predniSONE 5 MG TAB PO SCH (08:48)
[2016-07-18] MEDS: CALCIUM ACETATE 667 MG CAP PO SCH ×2 (08:49→12:49)
[2016-07-18] MEDS: AMIODARONE HCL 200 MG TAB PO SCH (08:49)
[2016-07-18] MEDS: SODIUM POLYSTYRENE SULF 454 GM POWDER PO SCH (08:58)
--- NOTE | 2016-07-18 09:31 | SOAPPROG ---
SOAP Progress Note Assessment/Plan: Assessment:Plan: ESRD-stable yesterday -patient requests more UF -goal discussed -will try to get down to 57kg -Rx for 3.5 hours Access-stable CV-remains in sinus rhythm ID-per pulmonary and ID Renal transplant-on prednisone monotherapy -chronic transplant rejection on dialysis 07/18/16 09:29 Subjective: feeling better Objective: Vital Signs Temp Pulse Resp BP Pulse Ox 36.7 C 58 L 16 111/54 L 100 07/18/16 07:38 07/18/16 07:38 07/18/16 07:38 07/18/16 07:38 07/18/16 07:38 Microbiology 07/15/16 11:20 Gram Stain - Final Thoracic Fluid - Aspirate Laboratory Results 07/15/16 05:15 07/17/16 05:30 07/17/16 07/18/16 07/19/16 05:59 05:59 05:59 Intake Total 800 500 Balance 800 500 PT 14.7 SEC (12.0-15.0) 07/15/16 05:15 INR 1.15 (0.83-1.16) 07/15/16 05:15 Physical Exam - Physical Exam General Appearance: no apparent distress, cachetic, thin EENT: normal ENT inspection Neck: normal inspection Respiratory: decreased breath sounds, rales, rhonchi Cardiac/Chest: regular rate, rhythm, systolic murmur Abdomen: normal bowel sounds, non-tender Extremities: swelling (1-2+ above ankles) ICD10 Worksheet Patient Problems: Problems Problem Status Onset Weakness Acute Anemia Acute C. difficile diarrhea Acute ~06/18/16 CHF (congestive heart failure) Acute Chronic Disease Mgmt/Transitional Care Acute Chronic Disease Mgmt/Transitional Care Acute Chronic pneumonia Acute Chronic renal failure Acute Dehydration Acute Dialysis complication Acute ESBL (extended spectrum beta-lactamase) producing bacteria infection Acute Extended spectrum beta lactamase (ESBL) resistance Acute 02/15/16 Fever Acute History of pneumonia Acute Hypotension Acute Hypoxemia Acute Hypoxia Acute Leukocytosis Acute Lung infiltrate Acute Mitral valve replaced Acute Palliative care encounter Acute Pneumonia Acute Pneumonia Acute Pneumonia Acute Pneumonia due to Pseudomonas Acute Renal failure Acute Renal transplant recipient Acute Sepsis Acute Severe sepsis Acute Severe sepsis Acute Shortness of breath Acute VRE (vancomycin-resistant Enterococci) Acute 01/11/16 Weakness Acute
--- NOTE | 2016-07-18 11:14 | PCMIDPN ---
Assessment/Plan: # RUL PNA secondary PsA, Day 15 of therapy for PsA. Pleural effusion culture is negative. Symptoms improved significant after therapeutic tap. 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 on suppressive PO vancomycin while remains on broad spec abx # ESRD on HD: renal dose zosyn # C. albicans on BAL c/w colonization meds Zosyn 2.25gm IV q8h micro 07/15 Pleural fluid: Neg 07/10 BAL: gram stain neg for organism; yeast 07/08 blood cx (2) Pending 07/03 BAL : solis-S PsA, PJP smear neg 07/02 Histo An neg; influenza neg 07/01 Crypto An neg CMV PCR negative Subjective: Discouraged that still requiring so much oxygen. Cough is better, energy is better. No diarrhea Objective: Vital Signs Temp Pulse Resp BP Pulse Ox 36.7 C 58 L 16 111/54 L 100 07/18/16 07:38 07/18/16 07:38 07/18/16 07:38 07/18/16 07:38 07/18/16 07:38 Microbiology 07/15/16 11:20 Gram Stain - Final Thoracic Fluid - Aspirate Body Fluid Culture - Final Laboratory Results 07/15/16 05:15 07/17/16 05:30 07/17/16 07/18/16 07/19/16 05:59 05:59 05:59 Intake Total 800 500 Balance 800 500 Gen: thin chr ill appearing male, NAD, on HD CV: RRR Chest: better air movement, no wheezes or crackles posterior exam Abd: soft NT Ext no edema R HD cath c/d/i L UE PICC c/d/i ICD10 Worksheet Patient Problems: Problems Problem Status Onset Weakness Acute Anemia Acute C. difficile diarrhea Acute ~06/18/16 CHF (congestive heart failure) Acute Chronic Disease Mgmt/Transitional Care Acute Chronic Disease Mgmt/Transitional Care Acute Chronic pneumonia Acute Chronic renal failure Acute Dehydration Acute Dialysis complication Acute ESBL (extended spectrum beta-lactamase) producing bacteria infection Acute Extended spectrum beta lactamase (ESBL) resistance Acute 02/15/16 Fever Acute History of pneumonia Acute Hypotension Acute Hypoxemia Acute Hypoxia Acute Leukocytosis Acute Lung infiltrate Acute Mitral valve replaced Acute Palliative care encounter Acute Pneumonia Acute Pneumonia Acute Pneumonia Acute Pneumonia due to Pseudomonas Acute Renal failure Acute Renal transplant recipient Acute Sepsis Acute Severe sepsis Acute Severe sepsis Acute Shortness of breath Acute VRE (vancomycin-resistant Enterococci) Acute 01/11/16 Weakness Acute
[2016-07-18 11:48] VITALS: BP 111/54; PULSE 68; RESP 14; TEMP 98.1; O2SAT 93
--- NOTE | 2016-07-18 12:28 | PDIAF ---
- Diagnosis Diagnosis: Right upper lobe pneumonia secondary to Pseudomonas Code Status: Full Code - Medication Management Discharge Medications: Medications to Continue on Transfer Amiodarone HCl [Pacerone (*)] 200 mg PO BID 06/27/16 [Last Taken 06/27/16] Calcium Acetate [Phoslo (*)] 1,334 mg PO TIDMEAL 06/27/16 [Last Taken 06/26/16] Carvedilol [Coreg (*)] 6.25 mg PO BIDMEAL 06/27/16 [Last Taken 06/27/16] Levalbuterol Inhaler [Xopenex Hfa Inhaler (*)] 2 puffs IH BID 06/27/16 [Last Taken 06/27/16] Mometasone/Formoterol [Dulera 200 Mcg/5 Mcg Inhaler] 2 puffs IH BID 06/27/16 [ Last Taken 06/27/16] Multivitamins [Multivitamin (*)] 1 each PO DAILY 06/27/16 [Last Taken 06/27/16] Sodium Polystyrene Sulf [Kionex SPS Powder (*)] 10 gm PO DAILY 06/27/16 [Last Taken 06/25/16] Tiotropium Inhaler [Spiriva Handihaler] 18 mcg IH HS 06/27/16 [Last Taken ] Zafirlukast [Accolate] 20 mg PO BID 06/27/16 [Last Taken 06/27/16] guaiFENesin [Mucinex 600 MG (*)] 600 mg PO BID 06/27/16 [Last Taken 06/27/16] hydrOXYzine HCL [hydrOXYzine HCL (RX)] 25 mg PO BID 06/27/16 [Last Taken ] predniSONE 5 mg PO DAILY 06/27/16 [Last Taken 06/27/16] traZODone [traZODONE 50MG (*)] 50 mg PO HS PRN 06/27/16 [Last Taken 06/26/16] Epoetin Cas [Procrit 30475 UNIT/ML (*)] 10,000 unit SC Q7D #1 vial 07/18/16 [ Last Taken Unknown] Heparin [Heparin SC 5000 unit/0.5 ml (*)] 5,000 unit SC Q8 #30 syr 07/18/16 [ Last Taken Unknown] Levalbuterol 1.25 mg [Xopenex 1.25MG Neb (*)] 1.25 mg IH Q8HRS PRN #20 deyvial 07/18/16 [Last Taken Unknown] Piperacillin/Tazo 2.25 gm/Dex [Zosyn 2.25 gm (Premix)] 2.25 gm IV Q8HRS #20 bag 07/18/16 [Last Taken Unknown] Vancomycin [Vancocin Oral Liquid] 125 mg PO BID #30 udl 07/18/16 [Last Taken Unknown] Gis Programmer Antibiotics: IV Zosyn until 07/31/26 Gis Programmer Antibiotic Stop Date: 07/31/16 Discharge Medications: Refer to the Discharge Home Medication list for PRN reason. PICC Care - Routine: Yes - Orders Services needed: Physical Therapy, Occupational Therapy Diet Recommendation: no restrictions on diet Additional: IVIG monthly, last given 06/28/16. Discontinue PO Vanco 1 week after IV antibiotics complete - Labs/Radiology Call or Fax Lab and Imaging Results to: Janelle Daniel [phone] - Follow Up Care Current Providers and Referrals: Janelle Daniel MD [Primary Care Provider] - As per Instructions
--- NOTE | 2016-07-18 17:02 | GDS ---
[f rep st] DISCHARGE SUMMARY DISCHARGE DIAGNOSES: 1. Recurrent pseudomonal pneumonia. 2. Parapneumonic effusion, status post paracentesis. 3. End-stage renal disease due to polycystic kidney disease, status post failed kidney transplant. 4. Acute respiratory failure with poor secretion management. 5. IgG deficiency. 6. Atrial fibrillation. 7. Clostridium difficile colitis. 8. Severe protein-calorie malnutrition. 9. Bioprosthetic mitral valve replacement. HISTORY: The patient is a 66-year-old male with multiple recurrent admissions for Pseudomonas pneum onia. This hospitalization was again pseudomonas as the culprit. He is well known to Infectious Di [facility]. He was initially on IV meropenem, but spiked very high fevers, which were felt to be drug fe madhu. He was switched to IV Zosyn, and since then has continued to improve. Given the recurrent melody ure of these infections, 4 weeks of antibiotics are being recommended. He had a paracentesis for pa rapneumonic effusion, but there was no evidence of any empyema. His oxygen has been weaned down to 3-4 L at discharge, but he continues to have poor secretion management, which is probably the culpri t in his failure to clear these pneumonias for any prolonged period of time. He has known IgG deficiency and gets IVIG every 4 weeks. His last infusion here was on July 01. He was diagnosed with C difficile during this hospitalization, received a full course of full dose oral vancomycin. His oral vancomycin has now been reduced to b.i.d. and should continue u ntil he is 1 week off antibiotics. DISCHARGE MEDICATIONS: Please see computerized record for full detailed list. New medications: 1. Zosyn 2.25 g IV q.8 hours for an additional 2 weeks. 2. Vancomycin 125 mg p.o. b.i.d. to continue for 1 week beyond discontinuation of IV antibiotics. ADDITIONAL DISCHARGE INSTRUCTIONS: 1. IV Zosyn stop date July 31. 2. IVIG monthly, last given on June 28. 3. Transfer to long-term acute care at [facility]. I did do a doc-to-doc sign-out to that facility. Greater 30 minutes time was spent arranging this discharge. Patient seen and examined by me on the day of discharge. /[id number]/MODL
== END 2016-07-18 15:44 | DRG 163 ==
LOC: F3E 20:15
PROVIDERS: ADMIT Internal Medicine; ATTEND Internal Medicine
PROC: 5A1D60Z (ICD-10-PCS; 2016-06-28)
PROC: 0B9F8ZZ Drainage of Right Lower Lung Lobe, Via Natural or Artificial Opening Endoscopic (ICD-10-PCS; 2016-07-03)
PROC: 02HV33Z Insertion of Infusion Device into Superior Vena Cava, Percutaneous Approach (ICD-10-PCS; 2016-07-06)
PROC: 0B9J8ZX Drainage of Left Lower Lung Lobe, Via Natural or Artificial Opening Endoscopic, Diagnostic (ICD-10-PCS; principal; 2016-07-10 18:30)
PROC: 0B9F8ZX Drainage of Right Lower Lung Lobe, Via Natural or Artificial Opening Endoscopic, Diagnostic (ICD-10-PCS; principal; 2016-07-10 18:30)
PROC: 0B978ZZ Drainage of Left Main Bronchus, Via Natural or Artificial Opening Endoscopic (ICD-10-PCS; principal; 2016-07-10 18:30)
PROC: 0B938ZZ Drainage of Right Main Bronchus, Via Natural or Artificial Opening Endoscopic (ICD-10-PCS; principal; 2016-07-10 18:30)
PROC: 0W9B3ZZ Drainage of Left Pleural Cavity, Percutaneous Approach (ICD-10-PCS; 2016-07-15)
DX: J15.1 Pneumonia due to Pseudomonas (principal); N18.6 End stage renal disease; J96.20 Acute and chronic respiratory failure, unspecified whether with hypoxia or hypercapnia; E43 Unspecified severe protein-calorie malnutrition; J90 Pleural effusion, not elsewhere classified; A04.7 Enterocolitis due to Clostridium difficile; Q61.3 Polycystic kidney, unspecified; D80.3 Selective deficiency of immunoglobulin G [IgG] subclasses; B37.0 Candidal stomatitis; D80.1 Nonfamilial hypogammaglobulinemia; Z95.4 Presence of other heart-valve replacement; Z99.2 Dependence on renal dialysis
CPT/HCPCS: 82784-90; 87385-90; 87497-90; 97110-GO; 97112-GP; 97116-GP; 97161-GP; 97165-GO; 97530-GO; 97530-GP; 97535-GO; C1751; G8978-GP-CI; G8978-GP-CK; G8979-GP-CI; G8987-GO-CI; G8987-GO-CJ; G8988-GO-CI; J0171; J0885; J1459; J1561; J1644; J2185; J2250; J2310; J2405; J2543; J3010; P9047

== ENCOUNTER 2016-08-04 21:29 | Inpatient (IN) | payer OTHER ==
[2016-08-04] MEDS ORDERED: NS 1,000 ML IV ONE (22:02)
--- NOTE | 2016-08-04 22:07 | EDPHY ---
H & P Stated Complaint: Weakness Time Seen by Provider: 08/04/16 21:50 HPI/ROS: CHIEF COMPLAINT: Generalized weakness HISTORY OF PRESENT ILLNESS: The patient is a 66-year-old man with a history of recurrent pseudomonal pneumonia, end-stage renal disease due to polycystic kidney disease status post failed kidney transplant, IgG deficiency on monthly IVIG, atrial fibrillation on Xarelto, C difficile, calorie malnutrition and bioprosthetic mitral valve replacement. He was admitted to the hospital month and a half ago for Pseudomonas pneumonia. He was discharged on 4 weeks of Zosyn that finished on . He had been in rehabilitation until a couple of days ago. He states that he felt generally weak there as well but better than he has over the last 2 days. He has not had a fever. He denies chest pain or shortness of breath. He does have an oxygen requirement since this most recent bout of pneumonia. He denies being in any pain. REVIEW OF SYSTEMS: Constitutional: See HPI denies: chills, fever, recent illness, recent injury EENTM: denies: blurred vision, double vision, nose congestion Respiratory: See HPI denies: cough, shortness of breath Cardiac: denies: chest pain, irregular heart rate, lightheadedness, palpitations Gastrointestinal/Abdominal: denies: abdominal pain, diarrhea, nausea, vomiting, blood streaked stools Genitourinary: denies: dysuria, frequency, hematuria, pain Musculoskeletal: denies: joint pain, muscle pain Skin: denies: lesions, rash, jaundice, bruising Neurological: denies: headache, numbness, paresthesia, tingling, dizziness, weakness Hematologic/Lymphatic: denies: blood clots, easy bleeding, easy bruising Immunologic/allergic: denies: HIV/AIDS, transplant EXAM: GENERAL: Well-appearing, well-nourished and in no acute distress. HEAD: Atraumatic, normocephalic. EYES: Pupils equal round and reactive to light, extraocular movements intact, sclera anicteric, conjunctiva are normal. ENT: TMs normal, nares patent, oropharynx clear without exudates. Moist mucous membranes. NECK: Normal range of motion, supple without lymphadenopathy or JVD. LUNGS: Bilateral coarse breath sounds HEART: Regular rate and rhythm without murmurs, rubs or gallops. ABDOMEN: Soft, nontender, normoactive bowel sounds. No guarding, no rebound. No masses appreciated. BACK: No CVA tenderness, no spinal tenderness, step-offs or deformities EXTREMITIES: Normal range of motion, no pitting or edema. No clubbing or cyanosis. NEUROLOGICAL: Cranial nerves II through XII grossly intact. Normal speech, normal gait. 5/5 strength, normal movement in all extremities, normal sensation PSYCH: Normal mood, normal affect. SKIN: Warm, dry, normal turgor, no visible rashes or lesions. Source: Patient Exam Limitations: No limitations - Personal History Current Tetanus/Diphtheria Vaccine: Yes Current Tetanus Diphtheria and Acellular Pertussis (TDAP): Yes Tetanus Vaccine Date: 2011 - Medical/Surgical History Hx Asthma: Yes Hx Chronic Respiratory Disease: Yes Hx Diabetes: No Hx Cardiac Disease: Yes Hx Renal Disease: Yes Hx Cirrhosis: No Hx Alcoholism: No Hx HIV/AIDS: No Hx Splenectomy or Spleen Trauma: No Other PMH: Endocarditis. MVR. AFIB. ESRD- s/p transplant 2nd to [facility]- HD 3XWK. West Nile Virus w/encephalopathy. Pulmonary HTN. IgG deficiency. Recurring PNA/Chronic Respiratory Infection - Social History Smoking Status: Never smoked Alcohol Use: Sober Drug Use: None Constitutional: Initial Vital Signs Temperature (C) 36.6 C 08/04/16 21:38 Heart Rate 78 08/04/16 21:38 Respiratory Rate 16 08/04/16 21:38 Blood Pressure 166/79 H 08/04/16 21:38 O2 Sat (%) 98 08/04/16 21:38 O2 Delivery Mode Nasal Cannula O2 (L/minute) 4 Allergies/Adverse Reactions: Iodinated Contrast Media - Oral and [Iodinated Contrast Media - IV Dye] Allergy (Severe, Verified 08/04/16 21:37) Dyspnea meropenem Allergy (Intermediate, Verified 08/04/16 21:37) Fever IODINE CONTACT DYE Allergy (Severe, Uncoded 08/04/16 21:37) Dyspnea Home Medications: Medication Instructions Recorded Amiodarone HCl [Pacerone (*)] 200 mg PO BID 06/27/16 Calcium Acetate [Phoslo (*)] 667 mg PO TIDMEAL 06/27/16 Carvedilol [Coreg (*)] 6.25 mg PO BIDMEAL 06/27/16 Mometasone/Formoterol [Dulera 200 2 puffs IH BID 06/27/16 Mcg/5 Mcg Inhaler] Sodium Polystyrene Sulf [Kionex 5 gm PO DAILY 06/27/16 SPS Powder (*)] Tiotropium Inhaler [Spiriva 18 mcg IH HS 06/27/16 Handihaler] guaiFENesin [Mucinex 600 MG (*)] 600 mg PO BID 06/27/16 hydrOXYzine HCL [hydrOXYzine HCL 25 mg PO BID 06/27/16 (RX)] predniSONE 5 mg PO Q2D 06/27/16 traZODone [traZODONE 50MG (*)] 25 mg PO HS PRN 06/27/16 Cholecalciferol Vit D3 [Vitamin D3 2,000 units PO DAILY 08/05/16 (*)] Darbepoetin Cas in Polysorbat 200 mcg IJ Q7D 08/05/16 [Aranesp] Levalbuterol 1.25 mg [Xopenex 1.25 mg IH Q8H PRN 08/05/16 1.25MG Neb (*)] Levalbuterol Tartrate 2 puffs IH BID 08/05/16 [Levalbuterol Tartrate Hfa] Montelukast Sodium [Singulair 10 10 mg PO DAILY@1800 08/05/16 mg (*)] traMADol [Ultram 50 mg (*)] 50 mg PO Q6 PRN 08/05/16 Medical Decision Making - Diagnostics EKG Interpretation: An EKG obtained and was read and documented in trace view. Please see trace view for full reading and report. Sinus rhythm, no acute ischemic changes, LVH , similar to previous Imaging: Discussed imaging studies w/ call center trainer Radiologist ED Course/Re-evaluation: 11:30 p.m. I have not found any acute pathology. The patient would like to stay in the hospital go back to rehab. He thinks that he left prematurely. I spoke with Dr RAKESH Rey who accepts. Differential Diagnosis: Partial list of the Differential diagnosis considered include but were not limited to; deconditioning, electrolyte abnormality, dehydration, sepsis, urinary tract infection, pneumonia and although unlikely based on the history and physical exam, I also considered meningitis, acute coronary disease. - Data Points Laboratory Results: Laboratory Results 08/04/16 21:55 08/04/16 22:30 Medications Given: Discontinued Medications Amiodarone HCl (Amiodarone Hcl) 200 mg PO BID [facility] Stop: 02/01/17 00:14 Last Admin: 08/05/16 09:13 Dose: 200 mg Hydroxyzine HCl (Hydroxyzine Hcl) 25 mg PO BID [facility] Stop: 02/01/17 00:14 Last Admin: 08/05/16 09:13 Dose: 25 mg Sodium Chloride (Ns) 1,000 mls @ 0 mls/hr IV ONCE ONE PRN Reason: Wide Open Stop: 08/04/16 22:03 Last Admin: 08/04/16 22:26 Dose: Not Given Levalbuterol (Xopenex Hfa Inhaler) 1 puffs IH TID [facility] Stop: 02/01/17 08:59 Last Admin: 08/05/16 16:52 Dose: 1 puffs Departure - Departure Disposition: [facility] Acute Clinical Impression: Generalized weakness Condition: Fair
--- NOTE | 2016-08-04 22:07 | CPEKG ---
Heart Rate: 67 RR Interval: 896 P-R Interval: 136 QRSD Interval: 106 QT Interval: 528 QTC Interval: 558 P [place]: 100 QRS [place]: -40 T Wave [place]: 95 EKG Severity - ABNORMAL ECG - EKG Impression: SINUS RHYTHM EKG Impression: LVH WITH SECONDARY REPOLARIZATION ABNORMALITY EKG Impression: PROLONGED QT INTERVAL Electronically Signed By: Atul Yanez 04-Aug-2016 22:09:24
[2016-08-04 22:13] LABS: % IMMATURE GRANULYOCYTES 0.4 % (0.0-1.1); ABSOLUTE IMMATURE GRANULOCYTES 0.02 10^3/uL (0.00-0.10); ADD DIFF? NO; ADD MORPH? NO; ADD SCAN? NO; ATYPICAL LYMPHOCYTE FLAG 10 (0-99); FRAGMENT RBC FLAG 0 (0-99); HEMATOCRIT 30.1 % (40.0-51.0); HEMOGLOBIN 9.5 g/dL (13.7-17.5); LEFT SHIFT FLG 0 (0-99); LIPEMIA HEMOLYSIS FLAG 80 (0-99); MEAN CELL HEMOGLOBIN 30.9 pg (27.9-34.1); MEAN CELL HEMOGLOBIN CONCENTR. 31.6 g/dL (32.4-36.7); PLATELET CLUMPS FLAG 0 (0-99); PLATELET COUNT 135 10^3/uL (150-400); RED BLOOD CELL COUNT 3.07 10^6/uL (4.40-6.38); RED CELL DISTRIBUTION WIDTH 17.5 % (11.5-15.2)
[2016-08-04 22:22] LABS: INR 1.01 (0.83-1.16); PROTIME(PATIENT) 13.2 SEC (12.0-15.0)
[2016-08-04 22:23] LABS: APTT 46.2 SEC (23.0-38.0)
[2016-08-04 22:59] LABS: ANION GAP 7 mEq/L (8-16); BILIRUBIN,TOTAL 0.8 mg/dL (0.1-1.4); CARBON DIOXIDE 29 mEq/l (22-31); CHLORIDE 98 mEq/L (97-110); CREATININE 1.8 mg/dL (0.7-1.3); GLOMERULAR FILTRATION RATE 38; GLUCOSE 111 mg/dL (70-100); POTASSIUM 3.2 mEq/L (3.5-5.2); SODIUM 134 mEq/L (134-144)
[2016-08-04] MEDS ORDERED: ONDANSETRON 4 MG/2 ML VIAL IVP PRN (23:51)
[2016-08-04] MEDS ORDERED: ACETAMINOPHEN 325 MG TAB PO PRN (23:51)
[2016-08-04] MEDS ORDERED: ONDANSETRON DISINTEGRATING 4 MG TAB PO PRN (23:51)
--- NOTE | 2016-08-05 01:13 | GHP ---
[f rep st] HISTORY AND PHYSICAL DATE OF ADMISSION: 08/04/2016 CHIEF COMPLAINT: Weakness and gait instability. HISTORY OF PRESENT ILLNESS: A 66-year-old male well known to the hospital Medicine Services at [facility] secondary to recurrent hospitalizations for pseudomonal pneumonias and complicated respiratory infections who presents after being discharged from rehabilitation approximately 72 hours ago. Patient was hospitalized in June, discharged to long-term rehabilitation on IV and oral antibiotics. Patient reports eating well on that stay and accomplishing goals from rehabilitation standpoint during this stay, so much so that he thought he would be able to discharge home and care for himself safely. Patient reports returning home and being markedly more weak than he expected to be, experiencing severe gait instability with stumbling falls. Patient returns to the emergency department for fear of his weakness and gait instability leading to more dangerous injuries. In the ED, denies any chest pain, denies palpitations. Reports stable shortness of breath on chronic oxygen supplementation. Denies any new fevers, subjective chills, changes in his secretions. Reports taking good oral intake while in rehab, less well after returning home. Denies any diarrhea or constipation. Remains nearly anuric secondary to his renal dysfunction. Reports persistent pruritus, which he has had for some time. Denies any abdominal pain or nausea. Denies any hemoptysis, hematemesis, melena. PAST MEDICAL HISTORY: 1. Bronchiectasis with recurrent pseudomonal pneumonias. 2. Polycystic kidney disease with end-stage renal disease on hemodialysis. 3. Immunodeficiency on q.4 week IVIG infusions. 4. Chronic hypoxic respiratory failure on 2 L. 5. Asthma. 6. Pulmonary hypertension. 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 8. Paroxysmal atrial fibrillation. 9. Bioprosthetic mitral valve. 10. Renal transplant. 11. Severe protein-calorie malnutrition. 12. History of C difficile colitis, completed oral vancomycin. SOCIAL HISTORY: Negative for tobacco, alcohol, or illicit drugs. FAMILY HISTORY: Positive for polycystic kidney disease. REVIEW OF SYSTEMS: A 10-point review of systems is negative with the exception of that reported in the HPI. PHYSICAL EXAMINATION: VITAL SIGNS: Blood pressure 134/62, heart rate 76, respiratory rate 18, saturating 99% on 4 L. GENERAL: This is a cachectic- appearing male, appearing quite fatigued, lying in bed. HEENT: Notable for dry mucous membranes. Eye exam is negative for any icterus. CARDIAC: Patient is regular rate and rhythm. A systolic murmur is appreciated. PULMONARY: Patient has good respiratory effort. Bilateral crackles at the bases. No wheezing or rhonchi are appreciated. GASTROINTESTINAL: Positive bowel sounds. Abdomen is soft and nontender. MUSCULOSKELETAL: Negative for any lower extremity edema. SKIN: Notable for scattered ecchymoses across is extremities. NEUROLOGIC: He is alert and oriented x3. PSYCHIATRIC: He appears withdrawn with a flat affect. DATA: White count 5.6, hematocrit 30.1, platelet count of 135. Sodium 134, potassium 3.2, creatinine of 1.8. Chest x-ray, which I personally reviewed and interpreted, shows no new pneumonia with improved pleural effusions from previous imaging. ASSESSMENT AND PLAN: This is a 66-year-old male with complicated medical history presenting with weakness. 1. Severe weakness. Patient is quite cachectic with very minimal reserves. Does not have concerning complaints on review of symptoms. Will check a urinalysis to rule out occult possible infection. Will, however, not initiate any empiric antibiotics at this time as he is simply recently completed treatment. Will encourage oral intake. Have PT/OT evaluate as he is well known to them, and work with case management on safe placement tomorrow. 2. Chronic hypoxic respiratory failure. Patient is at his baseline oxygen saturations. Will continue his inhaled medications and follow. 3. History of Clostridium difficile colitis. Patient completed oral vancomycin while on his last course of IV antibiotics. Will clinically monitor. 4. Immunodeficiency. Patient receives q.4 week IVIG infusions. Can continue these if this becomes a prolonged hospitalization. 5. Diet: Regular per the patient's request. 6. Prophylaxis: Heparin subcutaneously. DISPOSITION: I am expecting greater than 2 midnights if patient is not safe to return home independently. We will need physical therapy and occupational therapy evaluations and additional diagnostics prior to a safe disposition plan. I have discussed the case with the emergency room physician. Patient will be triaged to the medical-surgical floor for care. /[id number]/MODL MTDD
[2016-08-05] MEDS: AMIODARONE HCL 200 MG TAB PO SCH ×3 (02:19→20:24)
[2016-08-05] MEDS: hydrOXYzine HCL 25 MG TAB PO SCH ×3 (02:20→20:23)
[2016-08-05 05:00] LABS: ANION GAP 6 mEq/L (8-16); CALCIUM 8.6 mg/dL (8.5-10.4); CARBON DIOXIDE 29 mEq/l (22-31); CHLORIDE 101 mEq/L (97-110); CREATININE 2.3 mg/dL (0.7-1.3); GLOMERULAR FILTRATION RATE 29; GLUCOSE 65 mg/dL (70-100); POTASSIUM 3.5 mEq/L (3.5-5.2); SODIUM 136 mEq/L (134-144)
[2016-08-05] MEDS: HEPARIN 5,000 UNIT/0.5 ML SYR SC SCH ×3 (05:30→19:53)
--- NOTE | 2016-08-05 09:03 | HOSPPROG ---
Hospitalist Progress Note Assessment/Plan: #Severe weakness: reason for several of his hospital admissions. He has done well after discharge for rehab. I have talked about permanent placement several times in past. His goal is to be independent at home and able to work. I asked him to think of alternate plan if he cannot go home. This seems to be cyclic and goal would be to have him placed in assisted living, but he is very resistant. #Chronic hypoxemic resp failure: at baseline #h/o recurrent Pseudomonas PNA: recently completed a course of IV and oral abx #Atrial fibrillation: amiodarone #Anemia of chronic disease: H/H stable. Epo with HD #ESRD: appreciate renal consult. HD on Fri #h/o renal transplant: weaned off tacrolimus. Now on decreased pred dose 2.5mg #Diet: renal #DDx: [facility] #Disp: Case management to help with placement, he is interested in [facility] Subjective: weak. No f/c/s Objective: Vital Signs Temp Pulse Resp BP Pulse Ox 36.4 C 78 14 129/67 H 93 08/05/16 08:00 08/05/16 08:00 08/05/16 08:00 08/05/16 08:00 08/05/16 08:00 Laboratory Results 08/05/16 04:30 PT 13.2 SEC (12.0-15.0) 08/04/16 21:55 INR 1.01 (0.83-1.16) 08/04/16 21:55 - Physical Exam Constitutional: chronically ill appearing, other (thin, pale) Eyes: pale conjunctiva Ears, Nose, Mouth, Throat: moist mucous membranes, hearing normal Cardiovascular: regular rate and rhythym, systolic murmur Respiratory: no respiratory distress Gastrointestinal: normoactive bowel sounds, soft, non-tender abdomen Genitourinary: no bladder fullness Skin: warm, other (brusies over UEs) Musculoskeletal: generalized weakness Neurologic: AAOx3, CN II-XII Intact Psychiatric: interacting appropriately ICD10 Worksheet Patient Problems: Problems Problem Status Onset Generalized weakness Acute Anemia Acute C. difficile diarrhea Acute ~06/18/16 CHF (congestive heart failure) Acute Chronic Disease Mgmt/Transitional Care Acute Chronic Disease Mgmt/Transitional Care Acute Chronic pneumonia Acute Chronic renal failure Acute Dehydration Acute Dialysis complication Acute ESBL (extended spectrum beta-lactamase) producing bacteria infection Acute Extended spectrum beta lactamase (ESBL) resistance Acute 02/15/16 Fever Acute History of pneumonia Acute Hypotension Acute Hypoxemia Acute Hypoxia Acute Leukocytosis Acute Lung infiltrate Acute Mitral valve replaced Acute Palliative care encounter Acute Pneumonia Acute Pneumonia Acute Pneumonia Acute Pneumonia due to Pseudomonas Acute Renal failure Acute Renal transplant recipient Acute Sepsis Acute Severe sepsis Acute Severe sepsis Acute Shortness of breath Acute VRE (vancomycin-resistant Enterococci) Acute 01/11/16 Weakness Acute Weakness Acute
[2016-08-05] MEDS: LEVALBUTEROL INHALER 200 PUFFS/15 GM MDI IH SCH ×3 (09:16→21:07)
--- NOTE | 2016-08-05 17:32 | PDGENHP ---
History and Physical - Chief Complaint ESRD - History of Present Illness Mr. Kaye is a 66 yo M with h/o ESRD s/p transplanted kidney that has failed, on HD MWF at [facility]. He has had multiple hospitalizations in the past year for pneumonias and weakness, was last hospitalized in June and discharged to rehab. Pt states that he was discharged from rehab to home but since then has been having worsening weakness and gait instability that worried him, so he presented to ER today. He denies any worsening in his respiratory status, no cough or dyspnea. He was last dialyzed yesterday off-schedule due to the race in [place] today. History Information - Allergies/Home Medication List Allergies/Adverse Reactions: Iodinated Contrast Media - Oral and [Iodinated Contrast Media - IV Dye] Allergy (Severe, Verified 08/04/16 21:37) Dyspnea meropenem Allergy (Intermediate, Verified 08/04/16 21:37) Fever IODINE CONTACT DYE Allergy (Severe, Uncoded 08/04/16 21:37) Dyspnea Home Medications: Amiodarone HCl [Pacerone (*)] 200 mg PO BID 06/27/16 [Last Taken 06/27/16] Calcium Acetate [Phoslo (*)] 667 mg PO TIDMEAL 06/27/16 [Last Taken 06/26/16] Carvedilol [Coreg (*)] 6.25 mg PO BIDMEAL 06/27/16 [Last Taken 06/27/16] Mometasone/Formoterol [Dulera 200 Mcg/5 Mcg Inhaler] 2 puffs IH BID 06/27/16 [ Last Taken 06/27/16] Sodium Polystyrene Sulf [Kionex SPS Powder (*)] 5 gm PO DAILY 06/27/16 [Last Taken 06/25/16] Tiotropium Inhaler [Spiriva Handihaler] 18 mcg IH HS 06/27/16 [Last Taken ] guaiFENesin [Mucinex 600 MG (*)] 600 mg PO BID 06/27/16 [Last Taken 06/27/16] hydrOXYzine HCL [hydrOXYzine HCL (RX)] 25 mg PO BID 06/27/16 [Last Taken ] predniSONE 5 mg PO Q2D 06/27/16 [Last Taken 06/27/16] traZODone [traZODONE 50MG (*)] 25 mg PO HS PRN 06/27/16 [Last Taken 06/26/16] Cholecalciferol Vit D3 [Vitamin D3 (*)] 2,000 units PO DAILY 08/05/16 [Last Taken Unknown] Darbepoetin Cas in Polysorbat [Aranesp] 200 mcg IJ Q7D 08/05/16 [Last Taken ] Levalbuterol 1.25 mg [Xopenex 1.25MG Neb (*)] 1.25 mg IH Q8H PRN 08/05/16 [Last Taken Unknown] Levalbuterol Tartrate [Levalbuterol Tartrate Hfa] 2 puffs IH BID 08/05/16 [Last Taken Unknown] Montelukast Sodium [Singulair 10 mg (*)] 10 mg PO DAILY@1800 08/05/16 [Last Taken Unknown] traMADol [Ultram 50 mg (*)] 50 mg PO Q6 PRN 08/05/16 [Last Taken Unknown] I have personally reviewed and updated: medical history - Past Medical History atrial fibrillation, ESRD, pneumonia Additional medical history: Bronchiectasis with recurrent pseudomonal pneumonia , 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 renal transplant. 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 Review of Systems ROS: 10pt was reviewed & negative except for what was stated in HPI & below Physical Exam Temp Pulse Resp BP Pulse Ox 37.0 C 77 16 135/63 H 95 08/05/16 16:00 08/05/16 16:00 08/05/16 16:00 08/05/16 16:00 08/05/16 16:00 O2 (L/minute) 2 Constitutional: no apparent distress, appears nourished, not in pain, chronically ill appearing Eyes: PERRL, anicteric sclera, EOMI Ears, Nose, Mouth, Throat: moist mucous membranes, hearing normal Cardiovascular: regular rate and rhythym, pulses symmetric bilaterally, No edema Peripheral Pulses: 2+: dorsalis-pedis (R), dorsalis-pedis (L) Respiratory: no respiratory distress, clear to auscultation Gastrointestinal: normoactive bowel sounds, soft, non-tender abdomen Skin: warm, No rash Musculoskeletal: no muscle tenderness, normal joint ROM Neurologic: AAOx3, CN II-XII Intact, No asterixes Psychiatric: interacting appropriately, not anxious, not encephalopathic, thought process linear Lab Data & Imaging Review 08/04/16 21:55 08/05/16 04:30 WBC 5.64 10^3/uL (3.80-9.50) 08/04/16 21:55 RBC 3.07 10^6/uL (4.40-6.38) L 08/04/16 21:55 Hgb 9.5 g/dL (13.7-17.5) L 08/04/16 21:55 Hct 30.1 % (40.0-51.0) L 08/04/16 21:55 MCV 98.0 fL (81.5-99.8) 08/04/16 21:55 MCH 30.9 pg (27.9-34.1) 08/04/16 21:55 MCHC 31.6 g/dL (32.4-36.7) L 08/04/16 21:55 RDW 17.5 % (11.5-15.2) H 08/04/16 21:55 Plt Count 135 10^3/uL (150-400) L 08/04/16 21:55 MPV 9.0 fL (8.7-11.7) 08/04/16 21:55 Neut % (Auto) 48.9 % (39.3-74.2) 08/04/16 21:55 Lymph % (Auto) 33.3 % (15.0-45.0) 08/04/16 21:55 Dougherty % (Auto) 6.7 % (4.5-13.0) 08/04/16 21:55 Eos % (Auto) 9.6 % (0.6-7.6) H 08/04/16 21:55 Baso % (Auto) 1.1 % (0.3-1.7) 08/04/16 21:55 Nucleat RBC Rel Count 0.0 % (0.0-0.2) 08/04/16 21:55 Absolute Neuts (auto) 2.76 10^3/uL (1.70-6.50) 08/04/16 21:55 Absolute Lymphs (auto) 1.88 10^3/uL (1.00-3.00) 08/04/16 21:55 Absolute Monos (auto) 0.38 10^3/uL (0.30-0.80) 08/04/16 21:55 Absolute Eos (auto) 0.54 10^3/uL (0.03-0.40) H 08/04/16 21:55 Absolute Basos (auto) 0.06 10^3/uL (0.02-0.10) 08/04/16 21:55 Absolute Nucleated RBC 0.00 10^3/uL (0-0.01) 08/04/16 21:55 Immature Gran % 0.4 % (0.0-1.1) 08/04/16 21:55 Immature Gran # 0.02 10^3/uL (0.00-0.10) 08/04/16 21:55 PT 13.2 SEC (12.0-15.0) 08/04/16 21:55 INR 1.01 (0.83-1.16) 08/04/16 21:55 APTT 46.2 SEC (23.0-38.0) H 08/04/16 21:55 VBG Lactic Acid 0.6 mmol/L (0.7-2.1) L 08/04/16 22:20 Sodium 136 mEq/L (134-144) 08/05/16 04:30 Potassium 3.5 mEq/L (3.5-5.2) 08/05/16 04:30 Chloride 101 mEq/L (97-110) 08/05/16 04:30 Carbon Dioxide 29 mEq/l (22-31) 08/05/16 04:30 Anion Gap 6 mEq/L (8-16) L 08/05/16 04:30 BUN 17 mg/dL (7-23) 08/05/16 04:30 Creatinine 2.3 mg/dL (0.7-1.3) H 08/05/16 04:30 Estimated GFR 08/05/16 04:30 Glucose 65 mg/dL (70-100) L 08/05/16 04:30 Calcium 8.6 mg/dL (8.5-10.4) 08/05/16 04:30 Total Bilirubin 0.8 mg/dL (0.1-1.4) 08/04/16 22:30 Assessment & Plan Assessment: Assessment/Plan: ESRD: on HD MWF, last dialyzed off-schedule yesterday. - Will plan on HD on Friday per routine. h/o renal transplant: pt was on prednisone 5mg alone, weaned off tacrolimus. He seems to have his prednisone dose weaned down recently. - Will give prednisone 2.5mg po daily. Anemia: Hgb 9.5, will give epo with HD. Thank you for the interesting consult. Nephrology will continue to follow, please call with any additional questions or concerns.
[2016-08-05] MEDS ORDERED: traMADol 50 MG TAB PO PRN (18:45)
[2016-08-05] MEDS ORDERED: IPRATROPIUM/ALBUTEROL 3 ML DEYVIAL IH PRN (18:45)
[2016-08-05] MEDS: guaiFENesin 600 MG TAB.ER PO SCH (20:24)
[2016-08-05] MEDS ORDERED: TIOTROPIUM INHALER 18 MCG/DOSE 5 DOSE/MDI IH SCH (21:00)
[2016-08-05] MEDS ORDERED: traZODone 50 MG TAB PO SCH (21:00)
[2016-08-05] MEDS: Mometasone/Formoterol [Dulera 200 Mcg/5 Mcg Inhaler] 2 PUFFS) IH SCH (21:08)
[2016-08-05] MEDS: TIOTROPIUM INHALER 18 MCG/DOSE 5 DOSE/MDI IH SCH (21:08)
[2016-08-06] MEDS: HEPARIN 5,000 UNIT/0.5 ML SYR SC SCH ×4 (02:42→21:35)
[2016-08-06 07:35] LABS: HEMOGLOBIN 8.7 g/dL (13.7-17.5); MEAN CELL HEMOGLOBIN CONCENTR. 31.1 g/dL (32.4-36.7); MEAN CELL VOLUME 99.6 fL (81.5-99.8); RED BLOOD CELL COUNT 2.81 10^6/uL (4.40-6.38); RED CELL DISTRIBUTION WIDTH 17.7 % (11.5-15.2)
[2016-08-06 08:05] LABS: ANION GAP 9 mEq/L (8-16); CARBON DIOXIDE 27 mEq/l (22-31); CHLORIDE 99 mEq/L (97-110); CREATININE 4.2 mg/dL (0.7-1.3); GLOMERULAR FILTRATION RATE 14; GLUCOSE 71 mg/dL (70-100); POTASSIUM 4.3 mEq/L (3.5-5.2); SODIUM 135 mEq/L (134-144)
--- NOTE | 2016-08-06 08:38 | PCMIDPN ---
Assessment/Plan: # Weakness: suspect continuum from resolved pneumonia, afebrile, normal white count, baseline O2 requirements at 2 L # Bronchiectasis s/p RUL PNA secondary PsA, s/p 4 weeks of Zosyn, lat 1 week ago --resumption tobramycin/Bethkis 300mg inhaled BID for PNA prevention. Medication ordered from [facility] and will have to write orders for home medication to be given once available. 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 on suppressive PO vancomycin while remains on broad spec abx s/p PO vancomycin -- contact precaution # ESRD on HD Subjective: patient feels like he is unable to complete activities at home Objective: Vital Signs Temp Pulse Resp BP Pulse Ox 36.9 C 74 16 127/61 H 98 08/06/16 04:00 08/06/16 04:00 08/06/16 04:00 08/06/16 04:00 08/06/16 04:00 Laboratory Results 08/06/16 06:20 08/06/16 06:20 - Physical Exam General Appearance: alert, no apparent distress, thin, non-toxic EENT: pale conjunctiva, No scleral icterus Respiratory: bronchial breath sounds, coarse breath sounds Neck: supple Cardiac/Chest: regular rate, rhythm Extremities: No pedal edema Abdomen: non-tender, soft Skin: No rash Neuro/Psych: alert, normal mood/affect, oriented x 3 - Line/s RUE PICC Lines: No drainage, No erythema - Time Spent With Patient Time Spent with Patient: greater than 35 minutes Time Spent with Patient: Greater than 35 minutes spent on this patients care, greater than 50% of time spent counseling, educating, and coordinating care regarding the above mentioned plan. ICD10 Worksheet Patient Problems: Problems Problem Status Onset Generalized weakness Acute Anemia Acute C. difficile diarrhea Acute ~06/18/16 CHF (congestive heart failure) Acute Chronic Disease Mgmt/Transitional Care Acute Chronic Disease Mgmt/Transitional Care Acute Chronic pneumonia Acute Chronic renal failure Acute Dehydration Acute Dialysis complication Acute ESBL (extended spectrum beta-lactamase) producing bacteria infection Acute Extended spectrum beta lactamase (ESBL) resistance Acute 02/28/16 Fever Acute History of pneumonia Acute Hypotension Acute Hypoxemia Acute Hypoxia Acute Leukocytosis Acute Lung infiltrate Acute Mitral valve replaced Acute Palliative care encounter Acute Pneumonia Acute Pneumonia Acute Pneumonia Acute Pneumonia due to Pseudomonas Acute Renal failure Acute Renal transplant recipient Acute Sepsis Acute Severe sepsis Acute Severe sepsis Acute Shortness of breath Acute VRE (vancomycin-resistant Enterococci) Acute 01/11/16 Weakness Acute Weakness Acute
[2016-08-06] MEDS: CARVEDILOL 6.25 MG TAB PO SCH ×2 (09:02→19:21)
[2016-08-06] MEDS: CALCIUM ACETATE 667 MG CAP PO SCH ×3 (09:04→19:21)
[2016-08-06] MEDS: hydrOXYzine HCL 25 MG TAB PO SCH ×2 (09:05→21:13)
[2016-08-06] MEDS: predniSONE 5 MG TAB PO SCH (09:06)
[2016-08-06] MEDS: CHOLECALCIFEROL VIT D3 2,000 UNITS TAB/CAP PO SCH (09:07)
[2016-08-06] MEDS: guaiFENesin 600 MG TAB.ER PO SCH ×2 (09:07→21:13)
[2016-08-06] MEDS: AMIODARONE HCL 200 MG TAB PO SCH ×2 (09:07→21:13)
[2016-08-06] MEDS: LEVALBUTEROL INHALER 200 PUFFS/15 GM MDI IH SCH ×2 (09:20→21:47)
[2016-08-06] MEDS: Mometasone/Formoterol [Dulera 200 Mcg/5 Mcg Inhaler] 2 PUFFS) IH SCH ×2 (09:26→21:50)
[2016-08-06] MEDS: SODIUM POLYSTYRENE SULF 454 GM POWDER PO SCH (09:27)
--- NOTE | 2016-08-06 11:23 | SOAPPROG ---
TISH Progress Note Assessment/Plan: Assessment: 1. ESRD HD tomorrow. 2. Plan of care Andrey discussion with Armin; relayed to primary team. There is a lack of congruity between Armin' physical status and his mental goals. He is not ready for a palliative approach. Trying to address his needs, an LTAC stay, if reimbursable, might be the best way to improve his overall status. Armin is interested. 3. Anemia Stable. 4. Pulmonary status Seems better than in the past. Plan: 08/06/16 11:19 Subjective: Doing fair Objective: Vital Signs Temp Pulse Resp BP Pulse Ox 37.1 C 74 18 137/68 H 97 08/06/16 08:00 08/06/16 09:02 08/06/16 08:00 08/06/16 09:02 08/06/16 08:00 Laboratory Results 08/06/16 06:20 08/06/16 06:20 PT 13.2 SEC (12.0-15.0) 08/04/16 21:55 INR 1.01 (0.83-1.16) 08/04/16 21:55 Physical Exam - Physical Exam General Appearance: no apparent distress, cachetic Neck: other (Catheter tunnel site ok) Respiratory: decreased breath sounds, crackles Cardiac/Chest: regular rate, rhythm Extremities: normal inspection Neuro/Psych: oriented x 3 ICD10 Worksheet Patient Problems: Problems Problem Status Onset Generalized weakness Acute Anemia Acute C. difficile diarrhea Acute ~06/18/16 CHF (congestive heart failure) Acute Chronic Disease Mgmt/Transitional Care Acute Chronic Disease Mgmt/Transitional Care Acute Chronic pneumonia Acute Chronic renal failure Acute Dehydration Acute Dialysis complication Acute ESBL (extended spectrum beta-lactamase) producing bacteria infection Acute Extended spectrum beta lactamase (ESBL) resistance Acute 02/28/16 Fever Acute History of pneumonia Acute Hypotension Acute Hypoxemia Acute Hypoxia Acute Leukocytosis Acute Lung infiltrate Acute Mitral valve replaced Acute Palliative care encounter Acute Pneumonia Acute Pneumonia Acute Pneumonia Acute Pneumonia due to Pseudomonas Acute Renal failure Acute Renal transplant recipient Acute Sepsis Acute Severe sepsis Acute Severe sepsis Acute Shortness of breath Acute VRE (vancomycin-resistant Enterococci) Acute 01/11/16 Weakness Acute Weakness Acute
--- NOTE | 2016-08-06 16:07 | HOSPPROG ---
Hospitalist Progress Note Assessment/Plan: assessment: 66-year-old male presents with acute on chronic generalized weakness, unable to complete activities of daily living Plan: 1. Severe weakness: acute on chronic, most likely secondary to deconditioning in the setting of recent severe illness and extended hospitalization for pneumonia -patient reports that he has been unable to complete activities of daily living at home and has fallen at least once rendering him high safety risk -counseled patient regarding the need to developed short-term and long-term care goals as well as locations to receive care -patient is interested in pursuing inpatient rehabilitation services at either [facility] or [facility] depending on Medical appropriateness - I have encouraged him to consider assisted living and began making arrangements for assisted living while he is at rehab so that when he returned home he does not experience recurrent episode of inability to complete activities of daily living resulting in a rehospitalization 2. Chronic hypoxemic resp failure: continue on supplemental oxygen - get CPT and potentially yfn-nebs, if available, will d/w RT 3. h/o recurrent Pseudomonas PNA: recently completed a course of IV and oral abx - d/w Dr. Daniel, the patient does not appear to have an active infxn - will get ppx tobramycin 4. Persistent atrial fibrillation: cont amiodarone to remain in NSR 5. Anemia of chronic disease: H/H stable. Epo with HD 6. ESRD: d/w Dr. Wood, recommends [facility] acute rehab for patient, will review whether patient has medical need w/ facility 7. h/o renal transplant: weaned off tacrolimus. Now on decreased pred dose 2.5mg 8. Suspected severe protein calorie malnutrition. Evidenced by proximal muscle wasting, low BMI of 16.9 - get dietary consultation - dietary supplements Diet: renal PPx: hep SC Code: full Dispo: ADD uncertain, reviewing patient's potential w/ [facility] vs. [facility], unsafe to medically discharge back into his own home at this time as he cannot care for self. Subjective: patient reports he is still feeling weak Objective: Vital Signs Temp Pulse Resp BP Pulse Ox 36.6 C 68 14 121/59 H 96 08/06/16 15:21 08/06/16 15:21 08/06/16 15:21 08/06/16 15:21 05/30/17 15:21 Laboratory Results 08/06/16 06:20 08/06/16 06:20 PT 13.2 SEC (12.0-15.0) 08/04/16 21:55 INR 1.01 (0.83-1.16) 08/04/16 21:55 - Time Spent With Patient Time Spent with Patient: greater than 35 minutes Time Spent with Patient: Greater than 35 minutes spent on this patients care, greater than 50% of time spent counseling, educating, and coordinating care regarding the above mentioned plan. - Physical Exam Constitutional: no apparent distress, not in pain, chronically ill appearing, cachectic, No uncomfortable Respiratory: rhonchi ( on inspiration bilaterally in the mid and inferior posterior segments), No expiratory wheeze, No bronchial breath sounds Neurologic: AAOx3 Psychiatric: interacting appropriately, not anxious, not encephalopathic, thought process linear ICD10 Worksheet Patient Problems: Problems Problem Status Onset Dehydration Acute Dialysis complication Acute Weakness Acute Generalized weakness Acute C. difficile diarrhea Acute ~06/18/16 Chronic Disease Mgmt/Transitional Care Acute Pneumonia Acute Mitral valve replaced Acute Extended spectrum beta lactamase (ESBL) resistance Acute 02/28/16 Renal transplant recipient Acute Chronic renal failure Acute CHF (congestive heart failure) Acute Anemia Acute Hypoxemia Acute Renal failure Acute Shortness of breath Acute Lung infiltrate Acute Hypotension Acute Severe sepsis Acute Pneumonia due to Pseudomonas Acute Hypoxia Acute Sepsis Acute Chronic Disease Mgmt/Transitional Care Acute Fever Acute History of pneumonia Acute VRE (vancomycin-resistant Enterococci) Acute 01/11/16 Palliative care encounter Acute Weakness Acute Chronic pneumonia Acute ESBL (extended spectrum beta-lactamase) producing bacteria infection Acute Leukocytosis Acute Pneumonia Acute Severe sepsis Acute Pneumonia Acute
[2016-08-06] MEDS: traZODone 50 MG TAB PO PRN (21:13)
[2016-08-06] MEDS: TIOTROPIUM INHALER 18 MCG/DOSE 5 DOSE/MDI IH SCH (21:47)
[2016-08-06] MEDS: MONTELUKAST SODIUM 10 MG TAB PO SCH (22:09)
[2016-08-07] MEDS: HEPARIN 5,000 UNIT/0.5 ML SYR SC SCH ×3 (06:16→21:38)
[2016-08-07] MEDS: SODIUM POLYSTYRENE SULF 454 GM POWDER PO SCH (08:42)
[2016-08-07] MEDS: CALCIUM ACETATE 667 MG CAP PO SCH ×3 (08:42→17:40)
[2016-08-07] MEDS: CARVEDILOL 6.25 MG TAB PO SCH ×2 (08:43→17:39)
[2016-08-07] MEDS: guaiFENesin 600 MG TAB.ER PO SCH ×2 (08:43→20:34)
[2016-08-07] MEDS: AMIODARONE HCL 200 MG TAB PO SCH ×2 (08:43→20:34)
[2016-08-07] MEDS: CHOLECALCIFEROL VIT D3 2,000 UNITS TAB/CAP PO SCH (08:43)
[2016-08-07] MEDS: hydrOXYzine HCL 25 MG TAB PO SCH ×2 (08:43→20:34)
[2016-08-07] MEDS: predniSONE 5 MG TAB PO SCH (08:43)
[2016-08-07] MEDS: LEVALBUTEROL 1.25 MG/3 ML DEYVIAL IH PRN ×2 (09:32→16:50)
[2016-08-07] MEDS: Mometasone/Formoterol [Dulera 200 Mcg/5 Mcg Inhaler] 2 PUFFS) IH SCH ×2 (09:53→21:50)
[2016-08-07] MEDS: LEVALBUTEROL INHALER 200 PUFFS/15 GM MDI IH SCH ×2 (09:53→21:51)
--- NOTE | 2016-08-07 11:52 | SOAPPROG ---
SOAP Progress Note Assessment/Plan: Assessment: 1. ESRD. HD today on MWF schedule. Wt 55 kg, DW 57 kg but has edema. UF 2kg. Will need new DW at discharge, probably ~53 kg. 2. Weakness/frailty. CM looking at options for LTAC vs rehab. 3. Chronic respiratory fx. Sxs stable today. Plan: 08/07/16 11:51 Subjective: Feels very weak. Objective: Vital Signs Temp Pulse Resp BP Pulse Ox 36.4 C 61 16 126/79 H 95 08/07/16 08:00 08/07/16 09:35 08/07/16 09:35 08/07/16 08:00 08/07/16 09:35 Laboratory Results 08/06/16 06:20 08/06/16 06:20 08/06/16 08/07/16 08/08/16 05:59 05:59 05:59 Intake Total 200 Balance 200 PT 13.2 SEC (12.0-15.0) 08/04/16 21:55 INR 1.01 (0.83-1.16) 08/04/16 21:55 RRR, no m/g/r Coarse crackles heard throughout Abdom soft, nontender 2+ ankle edema ICD10 Worksheet Patient Problems: Problems Problem Status Onset Dehydration Acute Dialysis complication Acute Weakness Acute Generalized weakness Acute C. difficile diarrhea Acute ~06/18/16 Chronic Disease Mgmt/Transitional Care Acute Pneumonia Acute Mitral valve replaced Acute Extended spectrum beta lactamase (ESBL) resistance Acute 02/28/16 Renal transplant recipient Acute Chronic renal failure Acute CHF (congestive heart failure) Acute Anemia Acute Hypoxemia Acute Renal failure Acute Shortness of breath Acute Lung infiltrate Acute Hypotension Acute Severe sepsis Acute Pneumonia due to Pseudomonas Acute Hypoxia Acute Sepsis Acute Chronic Disease Mgmt/Transitional Care Acute Fever Acute History of pneumonia Acute VRE (vancomycin-resistant Enterococci) Acute 01/11/16 Palliative care encounter Acute Weakness Acute Chronic pneumonia Acute ESBL (extended spectrum beta-lactamase) producing bacteria infection Acute Leukocytosis Acute Pneumonia Acute Severe sepsis Acute Pneumonia Acute
--- NOTE | 2016-08-07 15:46 | HOSPPROG ---
Hospitalist Progress Note Assessment/Plan: assessment: 66-year-old male presents with acute on chronic generalized weakness, unable to complete activities of daily living Plan: 1. Severe weakness: acute on chronic, most likely secondary to deconditioning in the setting of recent severe illness and extended hospitalization for pneumonia -patient considering [facility] rehab, and [facility] if he does not medically qualify 2. Chronic hypoxemic resp failure: continue on supplemental oxygen - cont CPT and pressure-nebs 3. h/o recurrent Pseudomonas PNA: recently completed a course of IV and oral abx - patient does not appear to have an active infxn - will get ppx tobramycin 4. Persistent atrial fibrillation: cont amiodarone to remain in NSR 5. Anemia of chronic disease: H/H stable. Epo with HD - check CBC 6. ESRD: d/w Dr. Campos, we agree on LTAC consideration, and SNF if unable 7. h/o renal transplant: weaned off tacrolimus. Now on decreased pred dose 2.5mg 8. Suspected severe protein calorie malnutrition. Evidenced by proximal muscle wasting, low BMI of 16.9 - get dietary consultation - dietary supplements Diet: renal PPx: hep SC Code: full Dispo: ADD uncertain, unsafe to DC to lower level of care until authorized Subjective: patient reports he has been working with physical therapy Objective: Vital Signs Temp Pulse Resp BP Pulse Ox 36.2 C 67 16 152/85 H 2 L 08/07/16 11:30 08/07/16 11:30 08/07/16 11:30 08/07/16 11:30 08/07/16 11:30 Laboratory Results 08/06/16 06:20 08/06/16 06:20 08/06/16 08/07/16 08/08/16 05:59 05:59 05:59 Intake Total 200 Balance 200 PT 13.2 SEC (12.0-15.0) 08/04/16 21:55 INR 1.01 (0.83-1.16) 08/04/16 21:55 - Physical Exam Constitutional: not in pain, chronically ill appearing, cachectic, other ( proximal muscle wasting), No uncomfortable Cardiovascular: systolic murmur ( 2/6 at the sternum), No irregularly irregular , No tachycardia, No edema Respiratory: rhonchi ( bilaterally posteriorly, higher on the left than right), No reduced air movement, No expiratory wheeze, No bronchial breath sounds Gastrointestinal: normoactive bowel sounds, soft, non-tender abdomen, no palpable masses Skin: other ( scattered ecchymoses) Neurologic: AAOx3, sensation intact bilaterally, No facial droop Psychiatric: interacting appropriately, not anxious, not encephalopathic, thought process linear ICD10 Worksheet Patient Problems: Problems Problem Status Onset Dehydration Acute Dialysis complication Acute Weakness Acute Generalized weakness Acute C. difficile diarrhea Acute ~06/18/16 Chronic Disease Mgmt/Transitional Care Acute Pneumonia Acute Mitral valve replaced Acute Extended spectrum beta lactamase (ESBL) resistance Acute 02/28/16 Renal transplant recipient Acute Chronic renal failure Acute CHF (congestive heart failure) Acute Anemia Acute Hypoxemia Acute Renal failure Acute Shortness of breath Acute Lung infiltrate Acute Hypotension Acute Severe sepsis Acute Pneumonia due to Pseudomonas Acute Hypoxia Acute Sepsis Acute Chronic Disease Mgmt/Transitional Care Acute Fever Acute History of pneumonia Acute VRE (vancomycin-resistant Enterococci) Acute 01/11/16 Palliative care encounter Acute Weakness Acute Chronic pneumonia Acute ESBL (extended spectrum beta-lactamase) producing bacteria infection Acute Leukocytosis Acute Pneumonia Acute Severe sepsis Acute Pneumonia Acute
[2016-08-07] MEDS: MONTELUKAST SODIUM 10 MG TAB PO SCH (17:40)
[2016-08-07 19:26] LABS: IMMUNOGLOBULIN A 60 mg/dL (61 - 356); IMMUNOGLOBULIN G 591 mg/dL (767 - 1590); IMMUNOGLOBULIN M 25 mg/dL (37 - 286)
[2016-08-07] MEDS: traZODone 50 MG TAB PO PRN (20:34)
[2016-08-07] MEDS: TIOTROPIUM INHALER 18 MCG/DOSE 5 DOSE/MDI IH SCH (21:51)
[2016-08-07] MEDS ORDERED: HEPARIN 50,000 UNIT/10 ML VIAL ONE (23:48)
[2016-08-08] MEDS: HEPARIN 5,000 UNIT/0.5 ML SYR SC SCH ×3 (05:26→21:00)
[2016-08-08] MEDS: predniSONE 5 MG TAB PO SCH (08:36)
[2016-08-08] MEDS: CARVEDILOL 6.25 MG TAB PO SCH ×2 (08:37→17:27)
[2016-08-08] MEDS: CHOLECALCIFEROL VIT D3 2,000 UNITS TAB/CAP PO SCH (08:37)
[2016-08-08] MEDS: CALCIUM ACETATE 667 MG CAP PO SCH ×3 (08:37→17:27)
[2016-08-08] MEDS: guaiFENesin 600 MG TAB.ER PO SCH ×2 (08:37→20:54)
[2016-08-08] MEDS: AMIODARONE HCL 200 MG TAB PO SCH ×2 (08:37→20:55)
[2016-08-08] MEDS: hydrOXYzine HCL 25 MG TAB PO SCH ×2 (08:37→20:55)
[2016-08-08] MEDS: SODIUM POLYSTYRENE SULF 454 GM POWDER PO SCH (08:37)
[2016-08-08] MEDS ORDERED: IMMUNE GLOBULIN 20 GM/200 ML VIAL IV ONE (09:30)
[2016-08-08] MEDS: LEVALBUTEROL 1.25 MG/3 ML DEYVIAL IH PRN ×2 (09:50→21:38)
[2016-08-08] MEDS: Mometasone/Formoterol [Dulera 200 Mcg/5 Mcg Inhaler] 2 PUFFS) IH SCH ×2 (09:51→21:39)
[2016-08-08] MEDS: LEVALBUTEROL INHALER 200 PUFFS/15 GM MDI IH SCH ×2 (09:52→21:43)
--- NOTE | 2016-08-08 09:56 | PCMIDPN ---
Assessment/Plan: # Weakness: suspect continuum from resolved pneumonia, afebrile, normal white count, baseline O2 requirements at 2 L, awaiting placement # Bronchiectasis s/p RUL PNA secondary PsA, s/p 4 weeks of Zosyn, lat 1 week ago --resumption tobramycin/Bethkis 300mg inhaled BID for PNA prevention. 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 on suppressive PO vancomycin while remains on broad spec abx s/p PO vancomycin -- contact precaution # ESRD on HD coordination of care with Subjective: patient continues to feel weak but overall is doing okay Objective: Vital Signs Temp Pulse Resp BP Pulse Ox 37.0 C 70 18 109/58 L 97 08/08/16 07:45 08/08/16 07:45 08/08/16 07:45 08/08/16 07:45 08/08/16 07:45 Laboratory Results 08/06/16 06:20 08/06/16 06:20 08/07/16 08/08/16 08/09/16 05:59 05:59 05:59 Intake Total 200 Balance 200 - Physical Exam General Appearance: alert, no apparent distress EENT: pale conjunctiva, No thrush Respiratory: coarse breath sounds, No accessory muscle use Neck: supple Cardiac/Chest: regular rate, rhythm, systolic murmur Extremities: No pedal edema Abdomen: non-tender, soft Skin: No rash Neuro/Psych: alert, normal mood/affect, oriented x 3 - Line/s RUE PICC Lines: No drainage, No erythema ICD10 Worksheet Patient Problems: Problems Problem Status Onset Generalized weakness Acute Anemia Acute C. difficile diarrhea Acute ~06/18/16 CHF (congestive heart failure) Acute Chronic Disease Mgmt/Transitional Care Acute Chronic Disease Mgmt/Transitional Care Acute Chronic pneumonia Acute Chronic renal failure Acute Dehydration Acute Dialysis complication Acute ESBL (extended spectrum beta-lactamase) producing bacteria infection Acute Extended spectrum beta lactamase (ESBL) resistance Acute 02/28/16 Fever Acute History of pneumonia Acute Hypotension Acute Hypoxemia Acute Hypoxia Acute Leukocytosis Acute Lung infiltrate Acute Mitral valve replaced Acute Palliative care encounter Acute Pneumonia Acute Pneumonia Acute Pneumonia Acute Pneumonia due to Pseudomonas Acute Renal failure Acute Renal transplant recipient Acute Sepsis Acute Severe sepsis Acute Severe sepsis Acute Shortness of breath Acute VRE (vancomycin-resistant Enterococci) Acute 01/11/16 Weakness Acute Weakness Acute
[2016-08-08] MEDS ORDERED: GAMUNEX C IV ONE (10:30)
[2016-08-08] MEDS ORDERED: IMMUNE GLOBULIN IV ONE (11:30)
[2016-08-08] MEDS ORDERED: [UNRECOGNIZED DRUG - OTHER] IV ONE (11:30)
--- NOTE | 2016-08-08 12:21 | SOAPPROG ---
SOAP Progress Note Assessment/Plan: Assessment/Plan: ESRD: on HD MWF. - Will do HD tomorrow per routine. h/o renal transplant: pt no longer on tacrolimus, prednisone dose weaned down recently. Now getting prednisone 2.5mg po daily. Hyperkalemia: will modulate with HD and daily Kionex. Subjective: No acute events overnight. Pt had HD yesterday, feels that too much fluid might have been pulled off. Objective: Vital Signs Temp Pulse Resp BP Pulse Ox 36.3 C 63 16 135/75 H 99 08/08/16 12:14 08/08/16 12:00 08/08/16 12:14 08/08/16 12:14 08/08/16 12:14 Laboratory Results 08/06/16 06:20 08/06/16 06:20 08/07/16 08/08/16 08/09/16 05:59 05:59 05:59 Intake Total 200 Balance 200 PT 13.2 SEC (12.0-15.0) 08/04/16 21:55 INR 1.01 (0.83-1.16) 08/04/16 21:55 General: alert and oriented, no acute distress Eyes; EOMI, PERRL OP: CLear CV: RRR Resp: Nonlabored respirations on NC Abd; Soft, NT Ext; trace edema BLE Neuro: CN II-XII grossly intact, no asterixis Psych: cooperative, appropriate mood and affect ICD10 Worksheet Patient Problems: Problems Problem Status Onset Generalized weakness Acute Anemia Acute C. difficile diarrhea Acute ~06/18/16 CHF (congestive heart failure) Acute Chronic Disease Mgmt/Transitional Care Acute Chronic Disease Mgmt/Transitional Care Acute Chronic pneumonia Acute Chronic renal failure Acute Dehydration Acute Dialysis complication Acute ESBL (extended spectrum beta-lactamase) producing bacteria infection Acute Extended spectrum beta lactamase (ESBL) resistance Acute 02/28/16 Fever Acute History of pneumonia Acute Hypotension Acute Hypoxemia Acute Hypoxia Acute Leukocytosis Acute Lung infiltrate Acute Mitral valve replaced Acute Palliative care encounter Acute Pneumonia Acute Pneumonia Acute Pneumonia Acute Pneumonia due to Pseudomonas Acute Renal failure Acute Renal transplant recipient Acute Sepsis Acute Severe sepsis Acute Severe sepsis Acute Shortness of breath Acute VRE (vancomycin-resistant Enterococci) Acute 01/11/16 Weakness Acute Weakness Acute
[2016-08-08] MEDS: MONTELUKAST SODIUM 10 MG TAB PO SCH (17:27)
--- NOTE | 2016-08-08 17:44 | HOSPPROG ---
Hospitalist Progress Note Assessment/Plan: assessment: 66-year-old male presents with acute on chronic generalized weakness, unable to complete activities of daily living Plan: 1. Severe weakness: acute on chronic, most likely secondary to deconditioning in the setting of recent severe illness and extended hospitalization for pneumonia -patient considering [facility] rehab, and [facility] if he does not medically qualify -discussed all of his medical needs w/ LTAC today, encouraging acceptance -counseled patient that this is the best opportunity for physical recovery, then [facility] afterwards 2. Chronic hypoxemic resp failure: continue on supplemental oxygen - cont CPT and pressure-nebs 3. h/o recurrent Pseudomonas PNA: recently completed a course of IV and oral abx - patient does not appear to have an active infxn - will get ppx tobramycin, d/w Dr. Daniel 4. Persistent atrial fibrillation: cont amiodarone to remain in NSR 5. Anemia of chronic disease: H/H stable. Epo with HD 6. ESRD: d/w Dr. Jenkins, we agree on LTAC consideration, and SNF if unable 7. h/o renal transplant: weaned off tacrolimus. Now on decreased pred dose 2.5mg 8. Suspected severe protein calorie malnutrition. Evidenced by proximal muscle wasting, low BMI of 16.9 - dietary consultation - dietary supplements Diet: renal PPx: hep SC Code: full Dispo: ADD 08/09, unsafe to DC to lower level of care until authorized Subjective: patient reports he had some shortness of breath last night Objective: Vital Signs Temp Pulse Resp BP Pulse Ox 36.9 C 99 18 138/76 H 100 08/08/16 16:00 08/08/16 16:00 08/08/16 16:00 08/08/16 16:00 08/08/16 16:00 Laboratory Results 08/06/16 06:20 08/06/16 06:20 08/07/16 08/08/16 08/09/16 05:59 05:59 05:59 Intake Total 200 Balance 200 PT 13.2 SEC (12.0-15.0) 08/04/16 21:55 INR 1.01 (0.83-1.16) 08/04/16 21:55 - Time Spent With Patient Time Spent with Patient: greater than 35 minutes Time Spent with Patient: Greater than 35 minutes spent on this patients care, greater than 50% of time spent counseling, educating, and coordinating care regarding the above mentioned plan. - Pending Discharge Pending Discharge Within 24 Hours: Yes Pending Discharge Date: 08/09/16 Pending Discharge Time: 11:00 - Physical Exam Constitutional: no apparent distress, not in pain, chronically ill appearing Cardiovascular: systolic murmur (II/ at apex), No irregularly irregular, No tachycardia, No edema Respiratory: rhonchi (bilat post segs), No expiratory wheeze, No bronchial breath sounds Neurologic: AAOx3 Psychiatric: interacting appropriately, not anxious, not encephalopathic, thought process linear ICD10 Worksheet Patient Problems: Problems Problem Status Onset Dehydration Acute Dialysis complication Acute Weakness Acute Generalized weakness Acute C. difficile diarrhea Acute ~06/18/16 Chronic Disease Mgmt/Transitional Care Acute Pneumonia Acute Mitral valve replaced Acute Extended spectrum beta lactamase (ESBL) resistance Acute 02/28/16 Renal transplant recipient Acute Chronic renal failure Acute CHF (congestive heart failure) Acute Anemia Acute Hypoxemia Acute Renal failure Acute Shortness of breath Acute Lung infiltrate Acute Hypotension Acute Severe sepsis Acute Pneumonia due to Pseudomonas Acute Hypoxia Acute Sepsis Acute Chronic Disease Mgmt/Transitional Care Acute Fever Acute History of pneumonia Acute VRE (vancomycin-resistant Enterococci) Acute 01/11/16 Palliative care encounter Acute Weakness Acute Chronic pneumonia Acute ESBL (extended spectrum beta-lactamase) producing bacteria infection Acute Leukocytosis Acute Pneumonia Acute Severe sepsis Acute Pneumonia Acute
[2016-08-08] MEDS: traZODone 50 MG TAB PO PRN (21:02)
[2016-08-08] MEDS: TIOTROPIUM INHALER 18 MCG/DOSE 5 DOSE/MDI IH SCH (21:39)
[2016-08-09] MEDS: HEPARIN 5,000 UNIT/0.5 ML SYR SC SCH ×2 (05:26→15:27)
[2016-08-09] MEDS: LEVALBUTEROL 1.25 MG/3 ML DEYVIAL IH PRN (10:08)
[2016-08-09] MEDS: LEVALBUTEROL INHALER 200 PUFFS/15 GM MDI IH SCH (10:09)
[2016-08-09] MEDS: Mometasone/Formoterol [Dulera 200 Mcg/5 Mcg Inhaler] 2 PUFFS) IH SCH (10:10)
[2016-08-09] MEDS: hydrOXYzine HCL 25 MG TAB PO SCH (10:30)
[2016-08-09] MEDS: CHOLECALCIFEROL VIT D3 2,000 UNITS TAB/CAP PO SCH (10:30)
[2016-08-09] MEDS: SODIUM POLYSTYRENE SULF 454 GM POWDER PO SCH (10:30)
[2016-08-09] MEDS: CALCIUM ACETATE 667 MG CAP PO SCH ×2 (10:30→12:11)
[2016-08-09] MEDS: guaiFENesin 600 MG TAB.ER PO SCH (10:30)
[2016-08-09] MEDS: AMIODARONE HCL 200 MG TAB PO SCH (10:30)
[2016-08-09] MEDS: CARVEDILOL 6.25 MG TAB PO SCH (10:30)
[2016-08-09] MEDS: predniSONE 5 MG TAB PO SCH (10:30)
--- NOTE | 2016-08-09 11:17 | SOAPPROG ---
SOAP Progress Note Assessment/Plan: Assessment:Plan: ESRD-stable on dialysis -goal for 1 kg today -needs standing post-dialysis weight to help guide fluid removal -next Hd on Friday Edema-this is better than I have seen in the past and likely should be his baseline given his low albumin levels -he feels he had too much fluid removal with his dialysis on Friday -plan for post-weight today -he should be weighed again on admission to rehab, to make sure we have a good EDW to shoot for Dispo-he says he is going to [facility] 08/09/16 11:14 Subjective: stable on dialysis Objective: Vital Signs Temp Pulse Resp BP Pulse Ox 35.8 C L 62 16 132/77 H 93 08/09/16 08:13 08/09/16 08:13 08/09/16 08:13 08/09/16 08:13 08/09/16 08:13 Laboratory Results 08/06/16 06:20 08/06/16 06:20 08/08/16 08/09/16 08/10/16 05:59 05:59 05:59 Intake Total 650 Balance 650 PT 13.2 SEC (12.0-15.0) 08/04/16 21:55 INR 1.01 (0.83-1.16) 08/04/16 21:55 Physical Exam - Physical Exam General Appearance: alert, no apparent distress, cachetic, thin EENT: normal ENT inspection Neck: normal inspection Respiratory: rales (throughout) Cardiac/Chest: regular rate, rhythm, systolic murmur Abdomen: normal bowel sounds Extremities: swelling (trace at ankles) ICD10 Worksheet Patient Problems: Problems Problem Status Onset Generalized weakness Acute Anemia Acute C. difficile diarrhea Acute ~06/18/16 CHF (congestive heart failure) Acute Chronic Disease Mgmt/Transitional Care Acute Chronic Disease Mgmt/Transitional Care Acute Chronic pneumonia Acute Chronic renal failure Acute Dehydration Acute Dialysis complication Acute ESBL (extended spectrum beta-lactamase) producing bacteria infection Acute Extended spectrum beta lactamase (ESBL) resistance Acute 02/28/16 Fever Acute History of pneumonia Acute Hypotension Acute Hypoxemia Acute Hypoxia Acute Leukocytosis Acute Lung infiltrate Acute Mitral valve replaced Acute Palliative care encounter Acute Pneumonia Acute Pneumonia Acute Pneumonia Acute Pneumonia due to Pseudomonas Acute Renal failure Acute Renal transplant recipient Acute Sepsis Acute Severe sepsis Acute Severe sepsis Acute Shortness of breath Acute VRE (vancomycin-resistant Enterococci) Acute 01/11/16 Weakness Acute Weakness Acute
[2016-08-09 11:35] VITALS: BP 149/86; PULSE 71; RESP 18; TEMP 97.7; O2SAT 95
--- NOTE | 2016-08-09 13:50 | PDIAF ---
- Diagnosis Diagnosis: Generalized weakness Code Status: Full Code - Medication Management Discharge Medications: Medications to Continue on Transfer Amiodarone HCl [Pacerone (*)] 200 mg PO BID 06/27/16 [Last Taken 06/27/16] Calcium Acetate [Phoslo (*)] 667 mg PO TIDMEAL 06/27/16 [Last Taken 06/26/16] Carvedilol [Coreg (*)] 6.25 mg PO BIDMEAL 06/27/16 [Last Taken 06/27/16] Mometasone/Formoterol [Dulera 200 Mcg/5 Mcg Inhaler] 2 puffs IH BID 06/27/16 [ Last Taken 06/27/16] Sodium Polystyrene Sulf [Kionex SPS Powder (*)] 5 gm PO DAILY 06/27/16 [Last Taken 06/25/16] Tiotropium Inhaler [Spiriva Handihaler] 18 mcg IH HS 06/27/16 [Last Taken ] guaiFENesin [Mucinex 600 MG (*)] 600 mg PO BID 06/27/16 [Last Taken 06/27/16] hydrOXYzine HCL [hydrOXYzine HCL (RX)] 25 mg PO BID 06/27/16 [Last Taken ] traZODone [traZODONE 50MG (*)] 25 mg PO HS PRN 06/27/16 [Last Taken 06/26/16] Cholecalciferol Vit D3 [Vitamin D3 (*)] 2,000 units PO DAILY 08/05/16 [Last Taken Unknown] Darbepoetin Cas in Polysorbat [Aranesp] 200 mcg IJ Q7D 08/05/16 [Last Taken ] Levalbuterol 1.25 mg [Xopenex 1.25MG Neb (*)] 1.25 mg IH Q8H PRN 08/05/16 [Last Taken Unknown] Levalbuterol Tartrate [Levalbuterol Tartrate Hfa] 2 puffs IH BID 08/05/16 [Last Taken Unknown] Montelukast Sodium [Singulair 10 mg (*)] 10 mg PO DAILY@1800 08/05/16 [Last Taken Unknown] Acetaminophen [Tylenol 325mg (*)] 650 mg PO Q4HRS PRN #0 tab 08/09/16 [Last Taken Unknown] Tobramycin/Nebulizer [Tobramycin Celestine 300 mg/5 ml] 300 mg IH BID #60 ampul.neb [Last Taken Unknown] predniSONE 2.5 mg PO DAILY tab 08/09/16 [Last Taken Unknown] traMADol [Ultram 50 mg (*)] 50 mg PO Q6 PRN #40 tab 08/09/16 [Last Taken Unknown ] [employer] Antibiotics: Tobramycin 300mg bid inh Discharge Medications: Refer to the Discharge Home Medication list for PRN reason. PICC Care - Routine: N/A - Orders Services needed: Registered Nurse, Physical Therapy, Occupational Therapy Oxygen: 2L NC Diet Recommendation: potassium restricted (renal diet) Weigh Patient: weekly Nath: Not applicable Activity/Weight Bearing Restrictions: as tolerated - Labs/Radiology CBC Date: 08/15/16 Call or Fax Lab and Imaging Results to: Dr. Janelle Daniel - Follow Up Care Current Providers and Referrals: Janelle Daniel MD [Primary Care Provider] - 08/20/16 1:00 pm
--- NOTE | 2016-08-09 13:58 | PDDCSUM ---
Discharge Summary Discharge Summary: DISCHARGE SUMMARY FOLLOW-UP ITEMS: CBC next week with results to Dr. Daniel DATE OF ADMISSION: 08/04/2016 DATE OF DISCHARGE: 08/09/2016 DISCHARGE DIAGNOSES: 1. Acute on chronic severe weakness 2. Chronic hypoxic respiratory failure 3. History of recurrent pseudomonal pneumonia 4. Persistent atrial fibrillation 5. Anemia of chronic kidney disease 6. End-stage renal disease 7. History of renal transplant 8. Suspected severe protein calorie malnutrition CONSULTATIONS: Nephrology, infectious Disease PROCEDURES / IMAGING: None CHIEF COMPLAINT: Acute weakness SUBJECTIVE: Patient reports he continues to feel weak, is engaging with physical therapy PHYSICAL EXAM ON DISCHARGE: Systolic blood pressure 130, heart rate 60, afebrile overnight, satting well on 2 L nasal cannula, no expiratory wheezes, inspiratory crackles in the bilateral bases to mid posterior segments, scattered ecchymoses, cachexia and proximal muscle wasting LABS ON DISCHARGE: White blood cell count 6500, hemoglobin 8.7 HOSPITAL COURSE BY PROBLEM: 1. Acute on chronic severe weakness. Most likely secondary to deconditioning in the setting of recent severe illness extended hospitalization for pneumonia. Patient did not demonstrate any evidence of recurrent pneumonia during this hospitalization. He was deemed unsafe to return to his independent living environment and require ongoing [facility] level care while he engages in physical therapy. We have advised the patient that he should begin considering assisted living where he could transition after he has rehabbed at [facility]ent[facility] facility. 2. Chronic hypoxic respiratory failure. Patient was continued on supplemental oxygen, he will be continued on CPT therapy vest and pressure nebulizers if possible. 3. History of recurrent pseudomonal pneumonia. Patient recently completed a course of IV antibiotics and he was seen in consultation by his primary infectious disease provider, Dr. Janelle Daniel. She recommended prophylactic inhaled tobramycin and the patient will be initiated on this. Will then follow up with her in clinic and has a CBC to be performed prior to that appointment. 4. Persistent atrial fibrillation. Patient was continued on amiodarone to maintain normal sinus rhythm, he is not currently on systemic anticoagulation per choice. 5. Anemia of chronic kidney disease. Patient did receive EPO with hemodialysis , he did not require transfusions. 6. End-stage renal disease. Patient received dialysis during this hospitalization, we will continue to receive dialysis on his regular outpatient schedule. 7. History renal transplant. Patient has been weaned off of tacrolimus and his prednisone dosing has been reduced to 2.5 mg. He will be continued on this dosage. 8. Suspected severe protein calorie malnutrition. Patient has evidence of proximal muscle wasting with low BMI of 16.9 and he has been placed on dietary supplements. DISCHARGE MEDICATIONS: Please see official discharge medication reconciliation sheet in chart , tobramycin 300 mg twice daily inhaled, all other home medications the same. DISCHARGE INSTRUCTIONS: Patient should follow up with Dr. Janelle Daniel as scheduled, CBC prior to that appointment. TIME SPENT: Greater than 30 minutes were spent on direct patient care, as well as discharge planning and preparation.
--- NOTE | 2016-08-09 14:00 | PDIAF ---
- Diagnosis Diagnosis: Generalized weakness, recurrent pseudomonal pneumonia Code Status: Full Code - Medication Management Discharge Medications: Medications to Continue on Transfer Amiodarone HCl [Pacerone (*)] 200 mg PO BID 06/27/16 [Last Taken 06/27/16] Calcium Acetate [Phoslo (*)] 667 mg PO TIDMEAL 06/27/16 [Last Taken 06/26/16] Carvedilol [Coreg (*)] 6.25 mg PO BIDMEAL 06/27/16 [Last Taken 06/27/16] Mometasone/Formoterol [Dulera 200 Mcg/5 Mcg Inhaler] 2 puffs IH BID 06/27/16 [ Last Taken 06/27/16] Sodium Polystyrene Sulf [Kionex SPS Powder (*)] 5 gm PO DAILY 06/27/16 [Last Taken 06/25/16] Tiotropium Inhaler [Spiriva Handihaler] 18 mcg IH HS 06/27/16 [Last Taken ] guaiFENesin [Mucinex 600 MG (*)] 600 mg PO BID 06/27/16 [Last Taken 06/27/16] hydrOXYzine HCL [hydrOXYzine HCL (RX)] 25 mg PO BID 06/27/16 [Last Taken ] traZODone [traZODONE 50MG (*)] 25 mg PO HS PRN 06/27/16 [Last Taken 06/26/16] Cholecalciferol Vit D3 [Vitamin D3 (*)] 2,000 units PO DAILY 08/05/16 [Last Taken Unknown] Darbepoetin Cas in Polysorbat [Aranesp] 200 mcg IJ Q7D 08/05/16 [Last Taken ] Levalbuterol 1.25 mg [Xopenex 1.25MG Neb (*)] 1.25 mg IH Q8H PRN 08/05/16 [Last Taken Unknown] Levalbuterol Tartrate [Levalbuterol Tartrate Hfa] 2 puffs IH BID 08/05/16 [Last Taken Unknown] Montelukast Sodium [Singulair 10 mg (*)] 10 mg PO DAILY@1800 08/05/16 [Last Taken Unknown] Acetaminophen [Tylenol 325mg (*)] 650 mg PO Q4HRS PRN #0 tab 08/09/16 [Last Taken Unknown] Tobramycin/Nebulizer [Tobramycin Celestine 300 mg/5 ml] 300 mg IH BID #60 ampul.neb [Last Taken Unknown] predniSONE 2.5 mg PO DAILY tab 08/09/16 [Last Taken Unknown] traMADol [Ultram 50 mg (*)] 50 mg PO Q6 PRN #40 tab 08/09/16 [Last Taken Unknown ] [facility] Antibiotics: Tobramycin 300mg bid inh Discharge Medications: Refer to the Discharge Home Medication list for PRN reason. PICC Care - Routine: N/A - Orders Services needed: Registered Nurse, Physical Therapy, Occupational Therapy Oxygen: 2L NC Diet Recommendation: potassium restricted (renal diet) Weigh Patient: weekly Nath: Not applicable Activity/Weight Bearing Restrictions: as tolerated Additional: please perform daily chest pulmonary therapy vest (vibratory) and pressurized nebulizers (if possible) - Labs/Radiology CBC Date: 08/15/16 Call or Fax Lab and Imaging Results to: Dr. Janelle Daniel - Follow Up Care Current Providers and Referrals: Janelle Daniel MD [Primary Care Provider] - 08/20/16 1:00 pm
[2016-08-09] MEDS ORDERED: HEPARIN 50,000 UNIT/10 ML VIAL ONE (15:00)
== END 2016-08-09 15:40 | DRG 947 ==
LOC: OBSVTOIN 23:51 → F3E 08-05 00:18
PROVIDERS: ADMIT Hospitalist; ATTEND Hospitalist
PROC: 5A1D60Z (ICD-10-PCS; principal; 2016-08-07)
DX: R53.1 Weakness (principal); N18.6 End stage renal disease; E43 Unspecified severe protein-calorie malnutrition; Z68.1 Body mass index [BMI] 19.9 or less, adult; Q61.3 Polycystic kidney, unspecified; T86.12 Kidney transplant failure; D80.3 Selective deficiency of immunoglobulin G [IgG] subclasses; I48.1 Persistent atrial fibrillation; J96.11 Chronic respiratory failure with hypoxia; D63.8 Anemia in other chronic diseases classified elsewhere; J45.909 Unspecified asthma, uncomplicated; I27.2 Other secondary pulmonary hypertension; J47.9 Bronchiectasis, uncomplicated; D69.6 Thrombocytopenia, unspecified; Z99.2 Dependence on renal dialysis; Z99.81 Dependence on supplemental oxygen; Z95.3 Presence of xenogenic heart valve
CPT/HCPCS: 82784-90; 97116-GP; 97161-GP; 97165-GO; G8978-GP-CJ; G8979-GP-CI; G8987-GO-CI; G8988-GO-CI; J1459; J1561; J1644

== ENCOUNTER 2016-08-18 18:20 | Inpatient (IN) | payer OTHER ==
--- NOTE | 2016-08-18 18:56 | EDPHY ---
H & P Time Seen by Provider: 08/18/16 18:26 HPI/ROS: CHIEF COMPLAINT: Shortness of breath HISTORY OF PRESENT ILLNESS: Patient is a 66-year-old male who presents emergency department with increasing shortness of breath. Patient was admitted to the hospital on 08/04/2016 twenty eight two thousand seventeen and discharged on 08/09/2016 two two thousand seventeen with hypoxic respiratory failure and the pseudomonal pneumonia. Patient has been recovering at a rehab facility. Patient states over the past 2 days he has had increasing shortness of breath and fatigue. Last night he had an increased cough that was productive of yellow sputum. Today he has oxygen turned up from 2 to 4 liters/minute. This improved his symptoms. REVIEW OF SYSTEMS: My complete review of systems is negative except as mentioned in the HPI. Past Medical/Surgical History: Includes acute on chronic severe weakness, chronic hypoxic respiratory failure, pseudomonal pneumonia, atrial fibrillation, chronic kidney disease, end-stage renal disease, malnutrition, anemia Past surgical history: Includes renal transplant Social history: The patient is currently at a rehab facility. Smoking Status: Never smoked Physical Exam: Vitals noted GENERAL: Well-appearing, in no acute distress, alert. HEENT: Eyes normal to inspection, normal pharynx, no signs of dehydration. NECK: No thyromegaly, no lymphadenopathy, supple. RESPIRATORY: Decreased breath sounds at the bases bilaterally. No wheeze. No rales. CVS: Regular rate and rhythm, no rubs, murmurs, or gallops. ABDOMEN: Soft, nontender, nondistended, no organomegaly. BACK: Normal to inspection, no CVA tenderness. SKIN: Normal color, no rash, warm, dry. No pallor. EXTREMITIES: No pedal edema, no calf tenderness, no Homans sign or cords, no joint swelling. NEURO/PSYCH: Alert and oriented x3, normal mood and affect, normal motor sensory exam. Constitutional: Initial Vital Signs Temperature (C) 36.5 C 08/18/16 18:28 Heart Rate 69 08/18/16 18:28 Respiratory Rate 17 08/18/16 18:28 Blood Pressure 151/75 H 08/18/16 18:28 O2 Sat (%) 99 08/18/16 18:28 O2 Delivery Mode Room Air,Nasal Cannula Allergies/Adverse Reactions: Iodinated Contrast Media - Oral and [Iodinated Contrast Media - IV Dye] Allergy (Severe, Verified 08/18/16 18:28) Dyspnea meropenem Allergy (Intermediate, Verified 08/18/16 18:28) Fever IgA less than or equal to 50 mcg/mL [From Privigen] Allergy (Verified 08/18/16 18:28) immune globulin,gamma (IgG) human [From Privigen] Allergy (Verified 08/18/16 18: 28) proline [From Privigen] Allergy (Verified 08/18/16 18:28) IODINE CONTACT DYE Allergy (Severe, Uncoded 08/04/16 21:37) Dyspnea Home Medications: Medication Instructions Recorded Amiodarone HCl [Pacerone (*)] 200 mg PO BID 06/27/16 Calcium Acetate [Phoslo (*)] 667 mg PO TIDMEAL 06/27/16 Carvedilol [Coreg (*)] 6.25 mg PO BIDMEAL 06/27/16 Mometasone/Formoterol [Dulera 200 2 puffs IH BID 06/27/16 Mcg/5 Mcg Inhaler] Sodium Polystyrene Sulf [Kionex 5 gm PO DAILY 06/27/16 SPS Powder (*)] Tiotropium Inhaler [Spiriva 18 mcg IH HS 06/27/16 Handihaler] guaiFENesin [Mucinex 600 MG (*)] 600 mg PO BID 06/27/16 hydrOXYzine HCL [hydrOXYzine HCL 25 mg PO BID 06/27/16 (RX)] traZODone [traZODONE 50MG (*)] 25 mg PO HS PRN 06/27/16 Cholecalciferol Vit D3 [Vitamin D3 2,000 units PO DAILY 08/05/16 (*)] Darbepoetin Cas in Polysorbat 200 mcg IJ Q7D 08/05/16 [Aranesp] Levalbuterol 1.25 mg [Xopenex 1.25 mg IH Q8H PRN 08/05/16 1.25MG Neb (*)] Levalbuterol Tartrate 2 puffs IH BID 08/05/16 [Levalbuterol Tartrate Hfa] Montelukast Sodium [Singulair 10 10 mg PO DAILY@1800 08/05/16 mg (*)] Acetaminophen [Tylenol 325mg (*)] 650 mg PO Q4HRS PRN #0 tab 06/02/17 Tobramycin/Nebulizer [Tobramycin 300 mg IH BID #60 ampul.neb 08/09/16 Celestine 300 mg/5 ml] predniSONE 2.5 mg PO DAILY tab 08/09/16 traMADol [Ultram 50 mg (*)] 50 mg PO Q6 PRN #40 tab 08/09/16 Medical Decision Making - Diagnostics Imaging Results: Imaging Impressions Chest X-Ray 08/18/16 19:02 Impression: 1. Left lower lobe pneumonia. 2. Interstitial lung disease. 3. Dialysis catheter, without pneumothorax. ED Course/Re-evaluation: In the emergency department I reviewed the patient's medical record. I also reviewed the patient's imaging studies from today. This was a dictated report. The image was performed on 08/18/2016 eleven two thousand seventeen. Patient has interstitial infiltrates with bilateral effusions, left greater than right. The heart is enlarged in the findings are concerning for possible CHF. Sinus rhythm at 61. Normal axis. Normal interval. Q-wave V1-V2. The patient has a normal white count. He is mildly anemic. Patient's chemistry panel is notable for an elevated creatinine 5.4. I compared this with previous value in 07/2016 when it was 4. Potassium is 5.3. Sodium is low 130. Lactic acid 0.8. I discussed the results with the patient and answered all his questions. I discussed the findings with Dr. Thompson. He is aware. He recommended Zosyn ( patient is allergic to meropenem). Differential Diagnosis: My differential includes but is not limited to pneumonia, pleural effusion, malignancy, mass, empyema, CHF, ACS, acute LA - Data Points Laboratory Results: Laboratory Results 08/18/16 19:20 08/18/16 19:20 08/18/16 08/18/16 08/18/16 19:20 19:20 19:20 WBC 5.90 10^3/uL 10^3/uL (3.80-9.50) RBC 3.15 10^6/uL L 10^6/uL (4.40-6.38) Hgb 9.4 g/dL L g/dL (13.7-17.5) Hct 30.5 % L % (40.0-51.0) MCV 96.8 fL fL (81.5-99.8) MCH 29.8 pg pg (27.9-34.1) MCHC 30.8 g/dL L g/dL (32.4-36.7) RDW 16.1 % H % (11.5-15.2) Plt Count 197 10^3/uL 10^3/uL (150-400) MPV 9.4 fL fL (8.7-11.7) Neut % (Auto) 51.7 % % (39.3-74.2) Lymph % (Auto) 33.7 % % (15.0-45.0) Ponce % (Auto) 5.1 % % (4.5-13.0) Eos % (Auto) 8.0 % H % (0.6-7.6) Baso % (Auto) 1.2 % % (0.3-1.7) Nucleat RBC Rel Count 0.0 % % (0.0-0.2) Absolute Neuts (auto) 3.05 10^3/uL 10^3/uL (1.70-6.50) Absolute Lymphs (auto) 1.99 10^3/uL 10^3/uL (1.00-3.00) Absolute Monos (auto) 0.30 10^3/uL 10^3/uL (0.30-0.80) Absolute Eos (auto) 0.47 10^3/uL H 10^3/uL (0.03-0.40) Absolute Basos (auto) 0.07 10^3/uL 10^3/uL (0.02-0.10) Absolute Nucleated RBC 0.00 10^3/uL 10^3/uL (0-0.01) Immature Gran % 0.3 % % (0.0-1.1) Immature Gran # 0.02 10^3/uL 10^3/uL (0.00-0.10) APTT 37.9 SEC SEC (23.0-38.0) VBG Lactic Acid Sodium 133 mEq/L L mEq/L (134-144) Potassium 5.3 mEq/L H mEq/L (3.5-5.2) Chloride 97 mEq/L mEq/L (97-110) Carbon Dioxide 24 mEq/l mEq/l (22-31) Anion Gap 12 mEq/L mEq/L (8-16) BUN 50 mg/dL H mg/dL (7-23) Creatinine 5.4 mg/dL H mg/dL (0.7-1.3) Estimated GFR 11 Glucose 87 mg/dL mg/dL (70-100) Calcium 8.8 mg/dL mg/dL (8.5-10.4) Troponin I Pending NT-Pro-B Natriuret Pep Pending 08/18/16 19:20 WBC RBC Hgb Hct MCV MCH MCHC RDW Plt Count MPV Neut % (Auto) Lymph % (Auto) Ponce % (Auto) Eos % (Auto) Baso % (Auto) Nucleat RBC Rel Count Absolute Neuts (auto) Absolute Lymphs (auto) Absolute Monos (auto) Absolute Eos (auto) Absolute Basos (auto) Absolute Nucleated RBC Immature Gran % Immature Gran # APTT VBG Lactic Acid 0.8 mmol/L mmol/L (0.7-2.1) Sodium Potassium Chloride Carbon Dioxide Anion Gap BUN Creatinine Estimated GFR Glucose Calcium Troponin I NT-Pro-B Natriuret Pep Departure - Departure Disposition: [facility] Acute Clinical Impression: Hypoxemia, Pleural effusion, Acute hyponatremia, Renal insufficiency Condition: Good
--- NOTE | 2016-08-18 19:16 | CPEKG ---
Heart Rate: 61 RR Interval: 984 P-R Interval: 170 QRSD Interval: 106 QT Interval: 472 QTC Interval: 476 P Martin: 126 QRS Martin: -33 T Wave Martin: 78 EKG Severity - ABNORMAL ECG - EKG Impression: SINUS RHYTHM EKG Impression: BORDERLINE IVCD WITH LAD EKG Impression: PROBABLE LATERAL INFARCT, OLD EKG Impression: PROBABLE ANTEROSEPTAL INFARCT, AGE INDETERM EKG Impression: BORDERLINE PROLONGED QT INTERVAL Electronically Signed By: Gurinder Parks 20-Aug-2016 11:50:22
[2016-08-18 19:36] LABS: % IMMATURE GRANULYOCYTES 0.3 % (0.0-1.1); ABSOLUTE IMMATURE GRANULOCYTES 0.02 10^3/uL (0.00-0.10); ADD DIFF? NO; ADD MORPH? NO; ADD SCAN? NO; ATYPICAL LYMPHOCYTE FLAG 0 (0-99); FRAGMENT RBC FLAG 0 (0-99); HEMATOCRIT 30.5 % (40.0-51.0); HEMOGLOBIN 9.4 g/dL (13.7-17.5); LEFT SHIFT FLG 0 (0-99); LIPEMIA HEMOLYSIS FLAG 80 (0-99); MEAN CELL HEMOGLOBIN 29.8 pg (27.9-34.1); MEAN CELL HEMOGLOBIN CONCENTR. 30.8 g/dL (32.4-36.7); MEAN CELL VOLUME 96.8 fL (81.5-99.8); MEAN PLATELET VOLUME 9.4 fL (8.7-11.7); PLATELET CLUMPS FLAG 10 (0-99); PLATELET COUNT 197 10^3/uL (150-400); RED BLOOD CELL COUNT 3.15 10^6/uL (4.40-6.38); RED CELL DISTRIBUTION WIDTH 16.1 % (11.5-15.2)
[2016-08-18 20:12] LABS: ANION GAP 12 mEq/L (8-16); CALCIUM 8.8 mg/dL (8.5-10.4); CARBON DIOXIDE 24 mEq/l (22-31); CHLORIDE 97 mEq/L (97-110); CREATININE 5.4 mg/dL (0.7-1.3); GLOMERULAR FILTRATION RATE 11; GLUCOSE 87 mg/dL (70-100); POTASSIUM 5.3 mEq/L (3.5-5.2); SODIUM 133 mEq/L (134-144)
[2016-08-18 20:24] LABS: TROPONIN I 0.012 ng/mL (0-0.034)
[2016-08-18] MEDS ORDERED: PIPERACILLIN/TAZO 2.25 GM/DEX 50 ML IV ONE (20:24)
[2016-08-18] MEDS ORDERED: ACETAMINOPHEN 325 MG TAB PO PRN (22:28)
[2016-08-18] MEDS ORDERED: ONDANSETRON 4 MG/2 ML VIAL IVP PRN (22:28)
[2016-08-18] MEDS ORDERED: ONDANSETRON DISINTEGRATING 4 MG TAB PO PRN (22:28)
[2016-08-18] MEDS ORDERED: traZODone 50 MG TAB PO PRN (22:31)
[2016-08-18] MEDS ORDERED: traMADol 50 MG TAB PO PRN (22:31)
[2016-08-18] MEDS ORDERED: LEVALBUTEROL 1.25 MG/3 ML DEYVIAL IH PRN (22:31)
[2016-08-19] MEDS: CARVEDILOL 6.25 MG TAB PO SCH ×3 (00:50→21:02)
[2016-08-19] MEDS: guaiFENesin 600 MG TAB.ER PO SCH ×3 (00:51→21:01)
[2016-08-19] MEDS: AMIODARONE HCL 200 MG TAB PO SCH ×3 (00:51→21:01)
[2016-08-19] MEDS: hydrOXYzine HCL 25 MG TAB PO SCH ×3 (00:51→21:01)
--- NOTE | 2016-08-19 01:08 | PDGENHP ---
History and Physical - Chief Complaint Acute cough - History of Present Illness Primary infectious Disease: Dr. Daniel HPI: 66-year-old male presenting with acute cough characterized as productive of yellow sputum with associated shortness of breath and generalized fatigue onset of symptoms over the past 3 days duration progressively worsening thereafter. Patient reports that the cough is exacerbated by lying on his side on a flat surface at night is somewhat alleviated during the day. He also reports that the shortness of breath has been somewhat alleviated by increasing his supplemental oxygen from 2 L to 4 L nasal cannula. It should be noted that the symptoms began approximately 3 days ago after patient had his hemodialysis session cut short, running 3 hours instead of 4 hours, because of transportation issues with the [employer] [facility]. He has otherwise not changed any of his medications and he has been adherent to his home inhalers as well as inhaled tobramycin. Denies any fevers chills or other symptoms. He expressed that he was experiencing the symptoms above to the staff at [facility], chest x-ray was performed, and the covering physician interpreted it as pneumonia and sent him to our emergency department. History Information - Allergies/Home Medication List Allergies/Adverse Reactions: Iodinated Contrast Media - Oral and [Iodinated Contrast Media - IV Dye] Allergy (Severe, Verified 08/18/16 18:28) Dyspnea meropenem Allergy (Intermediate, Verified 08/18/16 18:28) Fever IgA less than or equal to 50 mcg/mL [From Privigen] Allergy (Verified 08/18/16 18:28) immune globulin,gamma (IgG) human [From Privigen] Allergy (Verified 08/18/16 18: 28) proline [From Privigen] Allergy (Verified 08/18/16 18:28) IODINE CONTACT DYE Allergy (Severe, Uncoded 08/04/16 21:37) Dyspnea Home Medications: Amiodarone HCl [Pacerone (*)] 200 mg PO BID 06/27/16 [Last Taken 08/18/16 08:00] Calcium Acetate [Phoslo (*)] 667 mg PO TIDMEAL 06/27/16 [Last Taken 08/18/16 12: 00] Carvedilol [Coreg (*)] 6.25 mg PO BIDMEAL 06/27/16 [Last Taken 08/18/16 08:00] Mometasone/Formoterol [Dulera 200 Mcg/5 Mcg Inhaler] 2 puffs IH BID 06/27/16 [ Last Taken 08/18/16 08:00] Sodium Polystyrene Sulf [Kionex SPS Powder (*)] 5 gm PO DAILY 06/27/16 [Last Taken 08/18/16 08:00] Tiotropium Inhaler [Spiriva Handihaler] 18 mcg IH HS 06/27/16 [Last Taken 20:00] guaiFENesin [Mucinex 600 MG (*)] 600 mg PO BID 06/27/16 [Last Taken 08/18/16 08: 00] hydrOXYzine HCL [hydrOXYzine HCL (RX)] 25 mg PO BID 06/27/16 [Last Taken 08:00] traZODone [traZODONE 50MG (*)] 25 mg PO HS PRN 06/27/16 [Last Taken 06/26/16] Cholecalciferol Vit D3 [Vitamin D3 (*)] 2,000 units PO DAILY 08/05/16 [Last Taken 08/18/16 08:00] Darbepoetin Cas in Polysorbat [Aranesp] 200 mcg IJ Q7D 08/05/16 [Last Taken 11/24] Levalbuterol 1.25 mg [Xopenex 1.25MG Neb (*)] 1.25 mg IH Q8H PRN 08/05/16 [Last Taken Unknown] Levalbuterol Tartrate [Levalbuterol Tartrate Hfa] 2 puffs IH BID 08/05/16 [Last Taken 08/18/16 08:00] Montelukast Sodium [Singulair 10 mg (*)] 10 mg PO DAILY@1800 08/05/16 [Last Taken 08/17/16 18:00] I have personally reviewed and updated: family history, medical history, social history, surgical history - Past Medical History atrial fibrillation, ESRD, pneumonia Additional medical history: Bronchiectasis with recurrent pseudomonal pneumonia , 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 renal transplant. 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 [facility] Review of Systems ROS: 10pt was reviewed & negative except for what was stated in HPI & below Constitutional: Reports: weakness Cardiac: Reports: edema Respiratory: Reports: cough, shortness of breath Physical Exam Temp Pulse Resp BP Pulse Ox 36.4 C 63 20 142/77 H 95 08/19/16 00:01 08/19/16 00:50 08/19/16 00:01 08/19/16 00:50 08/19/16 00:01 O2 (L/minute) 4 Constitutional: no apparent distress, not in pain, chronically ill appearing, No uncomfortable Eyes: PERRL, anicteric sclera, EOMI Ears, Nose, Mouth, Throat: moist mucous membranes, hearing normal, ears appear normal, no oral mucosal ulcers Cardiovascular: systolic murmur ( 1/6 sternum and apex), edema ( trace bilateral lower extremities), No irregularly irregular, No tachycardia Respiratory: expiratory wheeze ( bilateral anterior chest), inspiratory crackles ( bilateral bases), No reduced air movement, No bronchial breath sounds , No respiratory distress Gastrointestinal: normoactive bowel sounds, soft, non-tender abdomen, no palpable masses, distension ( mild) Skin: other ( scattered ecchymoses, no erythema around the right chest catheter site) Neurologic: AAOx3, sensation intact bilaterally, No weakness Psychiatric: interacting appropriately, not anxious, not encephalopathic, thought process linear Lab Data & Imaging Review 08/18/16 19:20 08/18/16 19:20 WBC 5.90 10^3/uL (3.80-9.50) 08/18/16 19:20 RBC 3.15 10^6/uL (4.40-6.38) L 08/18/16 19:20 Hgb 9.4 g/dL (13.7-17.5) L 08/18/16 19:20 Hct 30.5 % (40.0-51.0) L 08/18/16 19:20 MCV 96.8 fL (81.5-99.8) 08/18/16 19:20 MCH 29.8 pg (27.9-34.1) 08/18/16 19:20 MCHC 30.8 g/dL (32.4-36.7) L 08/18/16 19:20 RDW 16.1 % (11.5-15.2) H 08/18/16 19:20 Plt Count 197 10^3/uL (150-400) 08/18/16 19:20 MPV 9.4 fL (8.7-11.7) 08/18/16 19:20 Neut % (Auto) 51.7 % (39.3-74.2) 08/18/16 19:20 Lymph % (Auto) 33.7 % (15.0-45.0) 08/18/16 19:20 [place] % (Auto) 5.1 % (4.5-13.0) 08/18/16 19:20 Eos % (Auto) 8.0 % (0.6-7.6) H 08/18/16 19:20 Baso % (Auto) 1.2 % (0.3-1.7) 08/18/16 19:20 Nucleat RBC Rel Count 0.0 % (0.0-0.2) 08/18/16 19:20 Absolute Neuts (auto) 3.05 10^3/uL (1.70-6.50) 08/18/16 19:20 Absolute Lymphs (auto) 1.99 10^3/uL (1.00-3.00) 08/18/16 19:20 Absolute Monos (auto) 0.30 10^3/uL (0.30-0.80) 08/18/16 19:20 Absolute Eos (auto) 0.47 10^3/uL (0.03-0.40) H 08/18/16 19:20 Absolute Basos (auto) 0.07 10^3/uL (0.02-0.10) 08/18/16 19:20 Absolute Nucleated RBC 0.00 10^3/uL (0-0.01) 08/18/16 19:20 Immature Gran % 0.3 % (0.0-1.1) 08/18/16 19:20 Immature Gran # 0.02 10^3/uL (0.00-0.10) 08/18/16 19:20 APTT 37.9 SEC (23.0-38.0) 08/18/16 19:20 VBG Lactic Acid 0.8 mmol/L (0.7-2.1) 08/18/16 19:20 Sodium 133 mEq/L (134-144) L 08/18/16 19:20 Potassium 5.3 mEq/L (3.5-5.2) H 08/18/16 19:20 Chloride 97 mEq/L (97-110) 08/18/16 19:20 Carbon Dioxide 24 mEq/l (22-31) 08/18/16 19:20 Anion Gap 12 mEq/L (8-16) 08/18/16 19:20 BUN 50 mg/dL (7-23) H 08/18/16 19:20 Creatinine 5.4 mg/dL (0.7-1.3) H 08/18/16 19:20 Estimated GFR 11 08/18/16 19:20 Glucose 87 mg/dL (70-100) 08/18/16 19:20 Calcium 8.8 mg/dL (8.5-10.4) 08/18/16 19:20 Troponin I 0.012 ng/mL (0-0.034) 08/18/16 19:20 NT-Pro-B Natriuret Pep [id number] pg/mL (0-125) H 08/18/16 19:20 Visualized and Interpreted Chest x-ray results: Yes Chest X-Ray results: other ( bilateral airspace disease, similar to previous chest x-rays, unclear whether there is a dense her left lower lobe infiltrate) Visualized and Interpreted EKG results: Yes EKG Interpretation: Positive for: other ( T-wave inversion in lead V1 to V3) Assessment & Plan Assessment: 66-year-old male presenting with acute on chronic shortness of breath, cough, generalized weakness Plan: 1. Cough, generalized weakness, shortness of breath. Acute on chronic, new problem this provider, further workup indicated. Potential etiologies include recurrent pneumonia in the setting of bronchiectasis versus worsening of bronchiectasis versus acute diastolic congestive heart failure in the setting of end-stage renal disease versus acute reactive airway process. -I believe the most likely cause of his symptoms is a combination of mild acute diastolic congestive heart failure secondary to hypovolemia in the setting of end-stage renal disease, triggering a reactive airway component -the patient currently weighs 2 kg more than his weight during his most recent hospitalization and his dialysis session was cut short several days prior, he also experiences symptoms most notably when he is lying on a flat surface, BNP is [id number] -get noncontrast chest CT to help confirm or deny pneumonia, get procalcitonin level to also help confirm whether there is potential bacterial process at play -continue to monitor CBC, currently has no leukocytosis, no fever -infectious Disease consultation placed, currently holding antibiotics and patient refused the Zosyn offered to him in the emergency department -sputum culture sent 2. End-stage renal disease. Currently has lower extremity edema and weighs more than baseline, discussed with Dr. Hancock, he reports he will arrange hemodialysis tomorrow 3. Hyponatremia. Acute on chronic, secondary to end-stage renal disease, continue to monitor 4. Chronic diastolic congestive heart failure. Potentially an acute exacerbation with elevated BNP, increased lower extremity edema, increased weight, increased shortness of breath -continue home medications, volume removal 5. Chronic hypoxic respiratory failure. Secondary to chronic bronchiectasis, continue on supplemental oxygen 6. Bronchiectasis. Chronic, currently receiving inhaled tobramycin, per review of outside record (ID Progress Note by Dr. Daniel 08/08) -patient is established [facility], that is his primary Pulmonary group -patient is becoming interested in the care he may be received at [facility], consider referral if this could be facilitated 7. Acute on chronic bronchitis. Expiratory wheezes anteriorly, adjust Xopenex to scheduled, continue Spiriva, reassess in a.m., hold on steroids 8. Hyperkalemia. Acute on chronic, secondary to end-stage renal disease, will be dialyzed in a.m., continue monitor on telemetry Diet. Renal Prophylaxis. High risk patient, hep subcu Code. Full per patient Disposition. Anticipated discharge is 08/19/2016, pending further workup as outlined above. That being said, the patient is a high complexity medical patient and his diagnosis is yet uncertain, he may require greater than 48 hours inpatient hospitalization for reasonable medical necessity which will be outlined tomorrow if the patient does require an up graded status.
[2016-08-19] MEDS ORDERED: LEVALBUTEROL 1.25 MG/3 ML DEYVIAL ONE (01:12)
[2016-08-19] MEDS: LEVALBUTEROL INHALER 200 PUFFS/15 GM MDI IH SCH ×3 (01:18→22:07)
[2016-08-19] MEDS: TIOTROPIUM INHALER 18 MCG/DOSE 5 DOSE/MDI IH SCH ×2 (01:19→22:08)
[2016-08-19] MEDS: Mometasone/Formoterol [Dulera 200 Mcg/5 Mcg Inhaler] 2 PUFFS IH SCH ×3 (01:19→22:07)
[2016-08-19] MEDS: LEVALBUTEROL 1.25 MG/3 ML DEYVIAL IH SCH ×5 (01:21→22:07)
[2016-08-19] MEDS ORDERED: BENZONATATE 100 MG CAP PO PRN (02:26)
[2016-08-19] MEDS ORDERED: guaiFENesin/CODEINE PHOS 10 ML UDCUP PO PRN (02:26)
[2016-08-19] MEDS: HEPARIN 5,000 UNIT/0.5 ML SYR SC SCH ×2 (05:53→13:33)
[2016-08-19 06:11] LABS: % IMMATURE GRANULYOCYTES 0.3 % (0.0-1.1); ABSOLUTE IMMATURE GRANULOCYTES 0.02 10^3/uL (0.00-0.10); ADD DIFF? NO; ADD MORPH? NO; ADD SCAN? NO; ATYPICAL LYMPHOCYTE FLAG 0 (0-99); FRAGMENT RBC FLAG 0 (0-99); HEMATOCRIT 29.2 % (40.0-51.0); HEMOGLOBIN 8.9 g/dL (13.7-17.5); LEFT SHIFT FLG 0 (0-99); LIPEMIA HEMOLYSIS FLAG 80 (0-99); MEAN CELL HEMOGLOBIN 29.6 pg (27.9-34.1); MEAN CELL HEMOGLOBIN CONCENTR. 30.5 g/dL (32.4-36.7); MEAN PLATELET VOLUME 9.6 fL (8.7-11.7); PLATELET CLUMPS FLAG 0 (0-99); PLATELET COUNT 167 10^3/uL (150-400); RED BLOOD CELL COUNT 3.01 10^6/uL (4.40-6.38); RED CELL DISTRIBUTION WIDTH 16.1 % (11.5-15.2)
[2016-08-19 06:29] LABS: ANION GAP 12 mEq/L (8-16); CALCIUM 8.4 mg/dL (8.5-10.4); CARBON DIOXIDE 20 mEq/l (22-31); CHLORIDE 102 mEq/L (97-110); CREATININE 5.9 mg/dL (0.7-1.3); GLOMERULAR FILTRATION RATE 10; GLUCOSE 74 mg/dL (70-100); POTASSIUM 4.9 mEq/L (3.5-5.2); SODIUM 134 mEq/L (134-144)
[2016-08-19] MEDS: predniSONE 5 MG TAB PO SCH (07:55)
[2016-08-19] MEDS: CHOLECALCIFEROL VIT D3 2,000 UNITS TAB/CAP PO SCH (07:57)
[2016-08-19] MEDS: CALCIUM ACETATE 667 MG CAP PO SCH ×3 (09:11→18:59)
[2016-08-19] MEDS: SODIUM POLYSTYRENE SULF 454 GM POWDER PO SCH (09:11)
[2016-08-19] MEDS: TOBRAMYCIN IH SCH ×2 (11:05→22:08)
[2016-08-19] MEDS ORDERED: HEPARIN 50,000 UNIT/10 ML VIAL ONE (12:00)
--- NOTE | 2016-08-19 12:03 | SOAPPROG ---
SOAP Progress Note Assessment/Plan: Assessment: Armin is readmitted. We know him well from previous admissions 1. Weakness Multifactorial, but profound. This has been due to acute processes in the past , but it is less clear as to whether this is now due to more chronic problems. He did not do well with PT today. Evaluate and manage. 2. ESRD HD today. 3. Pulmonary Pt now has concerns that some of his breathing issues are restrictive in nature relating to his enlarged kidneys. This can happen. B Nephrectomies, even laparoscopic, carries significant morbidity, and would not be an easy procedure for him. He should have pulmonary input relating to the restrictive ms other issues contributing to his resp failure prior to consideration. 4. Anemia Stable 5. Cards He is in NSR. Plan: 08/19/16 11:59 Subjective: Looks comfortable at rest Objective: Vital Signs Temp Pulse Resp BP Pulse Ox 36.3 C 56 L 27 H 145/72 H 100 08/19/16 11:14 08/19/16 11:14 08/19/16 11:14 08/19/16 11:14 08/19/16 11:14 Microbiology 08/18/16 23:55 - Final Sputum, Expectorated Laboratory Results 08/19/16 05:54 08/19/16 05:54 08/18/16 08/19/16 08/20/16 05:59 05:59 05:59 Intake Total 250 Balance 250 Physical Exam - Physical Exam General Appearance: no apparent distress, cachetic Neck: other (HD catheter in place) Respiratory: decreased breath sounds, crackles Cardiac/Chest: regular rate, rhythm Skin: pallor Extremities: pedal edema Neuro/Psych: oriented x 3 ICD10 Worksheet Patient Problems: Problems Problem Status Onset Acute hyponatremia Acute Hypoxemia Acute Pleural effusion Acute Renal insufficiency Acute Anemia Acute C. difficile diarrhea Acute ~06/18/16 CHF (congestive heart failure) Acute Chronic Disease Mgmt/Transitional Care Acute Chronic Disease Mgmt/Transitional Care Acute Chronic pneumonia Acute Chronic renal failure Acute Dehydration Acute Dialysis complication Acute ESBL (extended spectrum beta-lactamase) producing bacteria infection Acute Extended spectrum beta lactamase (ESBL) resistance Acute 02/28/16 Fever Acute Generalized weakness Acute History of pneumonia Acute Hypotension Acute Hypoxia Acute Leukocytosis Acute Lung infiltrate Acute Mitral valve replaced Acute Palliative care encounter Acute Pneumonia Acute Pneumonia Acute Pneumonia Acute Pneumonia due to Pseudomonas Acute Renal failure Acute Renal transplant recipient Acute Sepsis Acute Severe sepsis Acute Severe sepsis Acute Shortness of breath Acute VRE (vancomycin-resistant Enterococci) Acute 01/11/16 Weakness Acute Weakness Acute
--- NOTE | 2016-08-19 12:35 | HOSPPROG ---
Hospitalist Progress Note Assessment/Plan: Assessment: 66-year-old male with h/o ESRD and recurrent PSE pneumonia presenting with acute on chronic shortness of breath, cough, generalized weakness 1. Cough, generalized weakness, shortness of breath. Acute on chronic with infiltrates on cxr -ddx volume overload vs recurrent bacterial pneumonia -a ct scan of the chest was ordered which I will defer at this time. Will await IDs input and see if he improves with removing volume during HD. The procalcitonin is only mildly elevated 2. End-stage renal disease. -HD today 3. Hyponatremia (resolved) 4. Chronic diastolic congestive heart failure. Potentially an acute exacerbation with elevated BNP, increased lower extremity edema, increased weight, increased shortness of breath -continue home medications, volume removal 5. Chronic hypoxic respiratory failure. Secondary to chronic bronchiectasis, continue on supplemental oxygen 6. Bronchiectasis. Chronic, currently receiving inhaled tobramycin, per review of outside record (ID Progress Note by Dr. Daniel 08/08) -patient is established [facility], that is his primary Pulmonary group -patient is becoming interested in the care he may be received at [facility], consider referral if this could be facilitated 7. Acute on chronic bronchitis. Expiratory wheezes anteriorly, adjust Xopenex to scheduled, continue Spiriva, reassess in a.m., hold on steroids 8. Hyperkalemia. Acute on chronic, secondary to end-stage renal disease, will be dialyzed in a.m., continue monitor on telemetry Diet. Pt requests regular diet Prophylaxis. High risk patient, hep subcu Code. Full per patient Subjective: no fevers or chills. still with some shortness of breath. reports fluid retention Objective: Vital Signs Temp Pulse Resp BP Pulse Ox 36.3 C 56 L 27 H 145/72 H 100 08/19/16 11:14 08/19/16 11:14 08/19/16 11:14 08/19/16 11:14 08/19/16 11:14 Microbiology 08/18/16 23:55 - Final Sputum, Expectorated Laboratory Results 08/19/16 05:54 08/19/16 05:54 08/18/16 08/19/16 08/20/16 05:59 05:59 05:59 Intake Total 250 Balance 250 cxr visualized and interpreted with bilat infiltrates - Physical Exam Constitutional: no apparent distress, appears nourished, not in pain Cardiovascular: regular rate and rhythym, no murmur, rub, or gallop Respiratory: no respiratory distress, inspiratory crackles, No reduced air movement, No rhonchi Gastrointestinal: normoactive bowel sounds, soft, non-tender abdomen, no palpable masses, distension, No guarding, No rebound Neurologic: AAOx3, sensation intact bilaterally ICD10 Worksheet Patient Problems: Problems Problem Status Onset Pleural effusion Acute Acute hyponatremia Acute Renal insufficiency Acute Dehydration Acute Dialysis complication Acute Weakness Acute Generalized weakness Acute C. difficile diarrhea Acute ~06/18/16 Chronic Disease Mgmt/Transitional Care Acute Pneumonia Acute Mitral valve replaced Acute Extended spectrum beta lactamase (ESBL) resistance Acute 02/28/16 Renal transplant recipient Acute Chronic renal failure Acute CHF (congestive heart failure) Acute Anemia Acute Hypoxemia Acute Renal failure Acute Shortness of breath Acute Lung infiltrate Acute Hypotension Acute Severe sepsis Acute Pneumonia due to Pseudomonas Acute Hypoxia Acute Sepsis Acute Chronic Disease Mgmt/Transitional Care Acute Fever Acute History of pneumonia Acute VRE (vancomycin-resistant Enterococci) Acute 01/11/16 Palliative care encounter Acute Weakness Acute Chronic pneumonia Acute ESBL (extended spectrum beta-lactamase) producing bacteria infection Acute Leukocytosis Acute Pneumonia Acute Severe sepsis Acute Pneumonia Acute
[2016-08-19] MEDS ORDERED: MONTELUKAST SODIUM 10 MG TAB PO SCH (18:00)
[2016-08-20] MEDS: HEPARIN 5,000 UNIT/0.5 ML SYR SC SCH ×3 (00:24→15:40)
[2016-08-20 05:03] LABS: % IMMATURE GRANULYOCYTES 0.3 % (0.0-1.1); ABSOLUTE IMMATURE GRANULOCYTES 0.02 10^3/uL (0.00-0.10); ADD DIFF? NO; ADD MORPH? NO; ADD SCAN? NO; ATYPICAL LYMPHOCYTE FLAG 0 (0-99); FRAGMENT RBC FLAG 0 (0-99); HEMATOCRIT 32.8 % (40.0-51.0); HEMOGLOBIN 10.1 g/dL (13.7-17.5); LEFT SHIFT FLG 0 (0-99); LIPEMIA HEMOLYSIS FLAG 80 (0-99); MEAN CELL HEMOGLOBIN 29.8 pg (27.9-34.1); MEAN CELL HEMOGLOBIN CONCENTR. 30.8 g/dL (32.4-36.7); MEAN CELL VOLUME 96.8 fL (81.5-99.8); MEAN PLATELET VOLUME 9.5 fL (8.7-11.7); PLATELET CLUMPS FLAG 0 (0-99); PLATELET COUNT 193 10^3/uL (150-400); RED BLOOD CELL COUNT 3.39 10^6/uL (4.40-6.38); RED CELL DISTRIBUTION WIDTH 16.2 % (11.5-15.2)
[2016-08-20] MEDS: LEVALBUTEROL 1.25 MG/3 ML DEYVIAL IH SCH ×3 (06:19→12:32)
[2016-08-20] MEDS: guaiFENesin 600 MG TAB.ER PO SCH (09:11)
[2016-08-20] MEDS: CHOLECALCIFEROL VIT D3 2,000 UNITS TAB/CAP PO SCH (09:11)
[2016-08-20] MEDS: CARVEDILOL 6.25 MG TAB PO SCH (09:11)
[2016-08-20] MEDS: hydrOXYzine HCL 25 MG TAB PO SCH (09:12)
[2016-08-20] MEDS: CALCIUM ACETATE 667 MG CAP PO SCH ×2 (09:12→13:08)
[2016-08-20] MEDS: AMIODARONE HCL 200 MG TAB PO SCH (09:12)
[2016-08-20] MEDS: predniSONE 5 MG TAB PO SCH (09:12)
[2016-08-20] MEDS: SODIUM POLYSTYRENE SULF 454 GM POWDER PO SCH (09:22)
[2016-08-20] MEDS: Mometasone/Formoterol [Dulera 200 Mcg/5 Mcg Inhaler] 2 PUFFS IH SCH (09:30)
[2016-08-20] MEDS: LEVALBUTEROL INHALER 200 PUFFS/15 GM MDI IH SCH (10:28)
--- NOTE | 2016-08-20 10:33 | SOAPPROG ---
SOAP Progress Note Assessment/Plan: Assessment: Armin is readmitted. We know him well from previous admissions 1. Volume/EDW Exercise tolerance and breathing better after dialysis and UF of 2kg yesterday. He admits that he has probably lost DW. At this point, there isn't evidence of worsening pneumonia. Will focus on adequate volume removal on dialysis, along with nutrition and PT. 2. ESRD Next HD tomorrow. 3. DC planning per CM, rehab again? Subjective: Looks better today Objective: Vital Signs Temp Pulse Resp BP Pulse Ox 36.9 C 71 18 129/53 H 97 08/20/16 07:24 08/20/16 09:30 08/20/16 09:30 08/20/16 07:24 08/20/16 09:30 Laboratory Results 08/20/16 04:40 08/19/16 08/20/16 08/21/16 05:59 05:59 05:59 Intake Total 300 Output Total 0 Balance 300 Physical Exam - Physical Exam General Appearance: no apparent distress, cachetic Neck: other (Catheter tunnel site ok) Respiratory: crackles (LLL) Extremities: pedal edema Neuro/Psych: oriented x 3, other (affect better today) ICD10 Worksheet Patient Problems: Problems Problem Status Onset Acute hyponatremia Acute Hypoxemia Acute Pleural effusion Acute Renal insufficiency Acute Anemia Acute C. difficile diarrhea Acute ~06/18/16 CHF (congestive heart failure) Acute Chronic Disease Mgmt/Transitional Care Acute Chronic Disease Mgmt/Transitional Care Acute Chronic pneumonia Acute Chronic renal failure Acute Dehydration Acute Dialysis complication Acute ESBL (extended spectrum beta-lactamase) producing bacteria infection Acute Extended spectrum beta lactamase (ESBL) resistance Acute 02/28/16 Fever Acute Generalized weakness Acute History of pneumonia Acute Hypotension Acute Hypoxia Acute Leukocytosis Acute Lung infiltrate Acute Mitral valve replaced Acute Palliative care encounter Acute Pneumonia Acute Pneumonia Acute Pneumonia Acute Pneumonia due to Pseudomonas Acute Renal failure Acute Renal transplant recipient Acute Sepsis Acute Severe sepsis Acute Severe sepsis Acute Shortness of breath Acute VRE (vancomycin-resistant Enterococci) Acute 01/11/16 Weakness Acute Weakness Acute
[2016-08-20] MEDS: TOBRAMYCIN IH SCH (10:38)
[2016-08-20 11:18] VITALS: BP 144/62; RESP 24; TEMP 98.1
--- NOTE | 2016-08-20 12:27 | GDS ---
[f rep st] DISCHARGE SUMMARY DISCHARGE DIAGNOSES: Cough and generalized weakness in the setting of recurrent pseudomonas pneumon ia and bronchiectasis: The patient was admitted to the hospital for concerns for recurrent pneumoni a. On hospital day #1, it appeared that he was volume overloaded on my exam and had an extremely el evated BNP. The patient underwent dialysis on 08/19/2016, and has felt better since dialysis. He manning s been afebrile without signs of infection during his stay. On the day of discharge, he is feeling much better and is amenable to leaving the hospital. PHYSICAL EXAM: VITAL SIGNS: On the day of discharge, blood pressure 129/53, pulse of 75, respirato ry rate 20, O2 saturation 91% on 3 L, temperature afebrile. GENERAL: No acute distress. LUNGS: B ilateral rales, which I think are chronic. LABORATORY DATA: Blood cultures no growth. DISCHARGE MEDICATIONS: Please refer to discharge medication reconciliation in [facility]. DISCHARGE INSTRUCTIONS: The patient will be discharged from the hospital, where he should continue with hemodialysis as scheduled. He needs to be carefully monitored for signs and symptoms of recurr ent pneumonia. He should follow up with his primary care provider next week for routine hospital fo llowsole. /[id number]/MODL
--- NOTE | 2016-08-20 12:41 | PDIAF ---
- Diagnosis Diagnosis: ESRD on HD Code Status: Full Code - Medication Management Discharge Medications: Medications to Continue on Transfer Amiodarone HCl [Pacerone (*)] 200 mg PO BID 06/27/16 [Last Taken 08/18/16 08:00] Calcium Acetate [Phoslo (*)] 667 mg PO TIDMEAL 06/27/16 [Last Taken 08/18/16 12: 00] Carvedilol [Coreg (*)] 6.25 mg PO BIDMEAL 06/27/16 [Last Taken 08/18/16 08:00] Mometasone/Formoterol [Dulera 200 Mcg/5 Mcg Inhaler] 2 puffs IH BID 06/27/16 [ Last Taken 08/18/16 08:00] Sodium Polystyrene Sulf [Kionex SPS Powder (*)] 5 gm PO DAILY 06/27/16 [Last Taken 08/18/16 08:00] Tiotropium Inhaler [Spiriva Handihaler] 18 mcg IH HS 06/27/16 [Last Taken 20:00] guaiFENesin [Mucinex 600 MG (*)] 600 mg PO BID 06/27/16 [Last Taken 08/18/16 08: 00] hydrOXYzine HCL [hydrOXYzine HCL (RX)] 25 mg PO BID 06/27/16 [Last Taken 08:00] traZODone [traZODONE 50MG (*)] 25 mg PO HS PRN 06/27/16 [Last Taken 06/26/16] Cholecalciferol Vit D3 [Vitamin D3 (*)] 2,000 units PO DAILY 08/05/16 [Last Taken 08/18/16 08:00] Darbepoetin Cas in Polysorbat [Aranesp] 200 mcg IJ Q7D 08/05/16 [Last Taken 11/24] Levalbuterol 1.25 mg [Xopenex 1.25MG Neb (*)] 1.25 mg IH Q8H PRN 08/05/16 [Last Taken Unknown] Levalbuterol Tartrate [Levalbuterol Tartrate Hfa] 2 puffs IH BID 08/05/16 [Last Taken 08/18/16 08:00] Montelukast Sodium [Singulair 10 mg (*)] 10 mg PO DAILY@1800 08/05/16 [Last Taken 08/17/16 18:00] Acetaminophen [Tylenol 325mg (*)] 650 mg PO Q4HRS PRN #0 tab 08/09/16 [Last Taken Unknown] Tobramycin/Nebulizer [Tobramycin Celestine 300 mg/5 ml] 300 mg IH BID #60 ampul.neb [Last Taken 08/18/16 08:00] predniSONE 2.5 mg PO DAILY tab 08/09/16 [Last Taken 08/18/16 08:00] traMADol [Ultram 50 mg (*)] 50 mg PO Q6 PRN #40 tab 08/09/16 [Last Taken Unknown ] Discharge Medications: Refer to the Discharge Home Medication list for PRN reason. - Orders Services needed: Registered Nurse, Physical Therapy, Occupational Therapy - Follow Up Care Current Providers and Referrals: Janelle Daniel MD [Primary Care Provider] - As per Instructions
[2016-08-20 12:48] VITALS: PULSE 72; O2SAT 96
--- NOTE | 2016-08-20 13:04 | PCMIDPN ---
Assessment/Plan: History of bronchiectasis with recurrent pneumonia, completed treatment for right upper lobes pneumonia due to Pseudomonas 3rd week of July. Current worsening hypoxia appears to be due to volume overload. WBC nl, AF --continue off systemic antibiotics --inhaled tobramycin 1 month on/1 month off Subjective: 66-year-old male with a very complicated past medical history including end- stage renal disease secondary to polycystic kidney disease requiring renal transplant, now s/p failure on dialysis, immunoglobulin deficiency, bronchiectasis with recurrent pneumonia with Pseudomonas, ESBL E coli, history of C diff and VRE colonization who is readmitted to the hospital for shortness of breath and is subsequently found to have volume overload. Patient completed treatment for right upper lobe pneumonia 3rd week of July. Since that time he has been on inhaled tobramycin 3 times daily. Objective: Vital Signs Temp Pulse Resp BP Pulse Ox 36.7 C 72 24 H 144/62 H 96 08/20/16 11:15 08/20/16 12:33 08/20/16 12:33 08/20/16 11:15 08/20/16 12:33 Laboratory Results 08/20/16 04:40 08/19/16 08/20/16 08/21/16 05:59 05:59 05:59 Intake Total 300 Output Total 0 Balance 300 - Physical Exam General Appearance: alert, no apparent distress, thin EENT: pale conjunctiva, No scleral icterus Respiratory: crackles, No accessory muscle use Cardiac/Chest: regular rate, rhythm Extremities: No pedal edema Abdomen: non-tender, soft Skin: pallor, No rash Neuro/Psych: alert, normal mood/affect, oriented x 3 ICD10 Worksheet Patient Problems: Problems Problem Status Onset Acute hyponatremia Acute Anemia Acute C. difficile diarrhea Acute ~06/18/16 CHF (congestive heart failure) Acute Chronic Disease Mgmt/Transitional Care Acute Chronic Disease Mgmt/Transitional Care Acute Chronic pneumonia Acute Chronic renal failure Acute Dehydration Acute Dialysis complication Acute ESBL (extended spectrum beta-lactamase) producing bacteria infection Acute Extended spectrum beta lactamase (ESBL) resistance Acute 02/28/16 Fever Acute Generalized weakness Acute History of pneumonia Acute Hypotension Acute Hypoxemia Acute Hypoxia Acute Leukocytosis Acute Lung infiltrate Acute Mitral valve replaced Acute Palliative care encounter Acute Pleural effusion Acute Pneumonia Acute Pneumonia Acute Pneumonia Acute Pneumonia due to Pseudomonas Acute Renal failure Acute Renal insufficiency Acute Renal transplant recipient Acute Sepsis Acute Severe sepsis Acute Severe sepsis Acute Shortness of breath Acute VRE (vancomycin-resistant Enterococci) Acute 01/11/16 Weakness Acute Weakness Acute
== END 2016-08-20 14:44 | DRG 640 ==
LOC: EDUNIT# → INTOOBSV 19:47 → F3E 21:32 → OBSVTOIN 08-19 17:00
PROVIDERS: ADMIT Internal Medicine; ATTEND Family Medicine
PROC: 5A1D00Z (ICD-10-PCS; principal; 2016-08-19)
DX: E87.70 Fluid overload, unspecified (principal); N18.6 End stage renal disease; Q61.3 Polycystic kidney, unspecified; Z99.2 Dependence on renal dialysis; T86.12 Kidney transplant failure; I50.32 Chronic diastolic (congestive) heart failure; R53.1 Weakness; E87.5 Hyperkalemia; E87.1 Hypo-osmolality and hyponatremia; D63.1 Anemia in chronic kidney disease; D80.3 Selective deficiency of immunoglobulin G [IgG] subclasses; J47.9 Bronchiectasis, uncomplicated; Z99.81 Dependence on supplemental oxygen; I48.0 Paroxysmal atrial fibrillation; Z95.3 Presence of xenogenic heart valve
CPT/HCPCS: 97162-GP; 97166-GO; G0378; G8978-GP-CL; G8979-GP-CJ; G8987-GO-CI; G8988-GO-CI; J1644; J2543

== ENCOUNTER 2016-10-06 17:51 | Inpatient (IN) | payer OTHER ==
--- NOTE | 2016-10-06 18:39 | EDPHY ---
H & P Time Seen by Provider: 10/06/16 18:21 HPI/ROS: CHIEF COMPLAINT: Increasing weakness HISTORY OF PRESENT ILLNESS: Patient is dialysis is Friday and he has been feeling weak for the last 2 days. This really is generalized and not focal and associated with feeling shortness of breath with exertion and needing additional oxygen. He is on his baseline of 2 L and requires in the emergency department at least 5 L to get him over 90%. He is not sure if he is gaining weight or not. He has peripheral edema. Is a chronic dry cough which is unchanged. No fever or chills. This is not associated with chest pain but the weakness is worse if he tries to move. He did eat today but only oatmeal and pineapple and a cappuccino. REVIEW OF SYSTEMS: Eye: no change in vision ENT: no sore throat Cardiac: no chest pain or syncope Pulmonary: HPI Abdomen: no vomiting, diarrhea, abdominal pain Musculoskeletal: Bilateral lower extremity edema Skin: no rash Neuro: no headache Constitutional: no fever : no urinary symptoms A comprehensive 10 point review of systems is otherwise negative aside from elements mentioned in the history of present illness. PAST MEDICAL HISTORY: Includes end-stage renal disease with failed transplant, dialysis dependent with right sided catheter. Atrial fibrillation, pulmonary hypertension, chronic respiratory infection, endocarditis, mitral valve. Social history: Here with a friend, nonsmoker General Appearance: Alert and conversant, cooperative. Eyes: No scleral icterus. ENT, Mouth: Normal mucous membranes. Respiratory: Rales usp up each lung, does speak in full sentences. No focal consolidation auscultated. Cardiovascular: Regular rate and rhythm. 3/6 systolic murmur, has dialysis catheter right subclavian area. Entry site not red or tender. Gastrointestinal: Abdomen is soft and non tender. Neurological: Alert and oriented x3. Normally conversant. Face symmetric, normal movement and sensation in all extremities. Skin: Warm and dry, no rashes. Musculoskeletal: 3+ bilateral peripheral edema. Psychiatric: Not agitated. Emergency Department course/MDM: Clinically appears volume overloaded. Plan for EKG chest x-ray and labs to include chemistry panel. He sees Dr. Benson from [facility] and Dr. Daniel. [facility] consulted, seen by Varun in the ED. The patient has a left lower lobe consolidation which is been present since his chest x-ray 2 months ago. However he does not have symptoms of cough or dyspnea at rest, does not have fever. His white blood cell count is only 10, 000. I think clinically is much more likely to just be volume overloaded than to have a pulmonary infection. Admission for dialysis for volume overload and hypoxemia with additional oxygen requirement. Smoking Status: Never smoked Constitutional: Initial Vital Signs Temperature (C) 37.5 C 10/06/16 17:57 Heart Rate 82 10/06/16 17:57 Respiratory Rate 18 10/06/16 17:57 Blood Pressure 156/81 H 10/06/16 17:57 O2 Sat (%) 94 10/06/16 17:57 O2 Delivery Mode Nasal Cannula O2 (L/minute) 5 Allergies/Adverse Reactions: Iodinated Contrast- Oral and IV Dye [Iodinated Contrast Media - IV Dye] Allergy (Severe, Verified 08/18/16 18:28) Dyspnea meropenem Allergy (Intermediate, Verified 08/18/16 18:28) Fever IgA less than or equal to 50 mcg/mL [From Privigen] Allergy (Verified 08/18/16 18:28) immune globulin,gamma (IgG) human [From Privigen] Allergy (Verified 08/18/16 18: 28) proline [From Privigen] Allergy (Verified 08/18/16 18:28) IODINE CONTACT DYE Allergy (Severe, Uncoded 08/04/16 21:37) Dyspnea Home Medications: Medication Instructions Recorded Amiodarone HCl [Pacerone (*)] 200 mg PO BID 06/27/16 Calcium Acetate [Phoslo (*)] 667 mg PO TIDMEAL 06/27/16 Carvedilol [Coreg (*)] 6.25 mg PO BIDMEAL 06/27/16 Mometasone/Formoterol [Dulera 200 2 puffs IH BID 06/27/16 Mcg/5 Mcg Inhaler] Tiotropium Inhaler [Spiriva 18 mcg IH HS 06/27/16 Handihaler] guaiFENesin [Mucinex 600 MG (*)] 600 mg PO BID 06/27/16 hydrOXYzine HCL [hydrOXYzine HCL 25 mg PO BID 06/27/16 (RX)] traZODone [traZODONE 50MG (*)] 25 mg PO HS PRN 06/27/16 Cholecalciferol Vit D3 [Vitamin D3 2,000 units PO DAILY 08/05/16 (*)] Darbepoetin Cas in Polysorbat 200 mcg IJ AD 08/05/16 [Aranesp] Levalbuterol 1.25 mg [Xopenex 1.25 mg IH Q8H PRN 08/05/16 1.25MG Neb (*)] Levalbuterol Tartrate 2 puffs IH BID 08/05/16 [Levalbuterol Tartrate Hfa] Montelukast Sodium [Singulair 10 10 mg PO DAILY@1800 08/05/16 mg (*)] Acetaminophen [Tylenol 325mg (*)] 650 mg PO Q4HRS PRN #0 tab 08/09/16 traMADol [Ultram 50 mg (*)] 50 mg PO Q6 PRN #40 tab 08/09/16 Tobramycin/Nebulizer [Tobramycin 300 mg IH 10/06/16 Celestine 300 mg/5 ml] Medical Decision Making - Diagnostics EKG Interpretation: 12-lead EKG interpreted by me; official reading is in trace master. My interpretation is sinus rhythm with left anterior fascicular block. Late anterior RS transition. Rate 80. Imaging Results: Imaging Impressions Chest X-Ray 10/06/16 18:36 Impression: 1. Chronic lung disease with possible new patchy areas of pneumonitis or pneumonia left mid lung laterally and right lung base. Chest x-ray shows pulmonary edema, dialysis catheter, persistent left lower lobe consolidation compared to 2 months ago. Imaging: I viewed and interpreted images myself Differential Diagnosis: Differential diagnosis considered for weakness considered including but not limited to hypoglycemia, sodium abnormality, fluid overload, ischemic stroke, cardiac problem. Consult/Admit Bed Type: [facility] 2017, [facility] 2017 - Data Points Laboratory Results: Laboratory Results 10/06/16 19:10 10/06/16 19:10 10/06/16 10/06/16 19:10 16:10 Sodium 136 mEq/L mEq/L (134-144) Potassium 4.7 mEq/L mEq/L (3.5-5.2) Chloride 98 mEq/L mEq/L (97-110) Carbon Dioxide 27 mEq/l mEq/l (22-31) Anion Gap 11 mEq/L mEq/L (8-16) BUN 31 mg/dL H mg/dL (7-23) Creatinine 4.2 mg/dL H mg/dL (0.7-1.3) Estimated GFR 14 Glucose 65 mg/dL L mg/dL (70-100) Calcium 8.3 mg/dL L mg/dL (8.5-10.4) Total Bilirubin 1.5 mg/dL H mg/dL (0.1-1.4) AST 50 IU/L IU/L (17-59) ALT 37 IU/L IU/L (21-72) Alkaline Phosphatase 103 IU/L IU/L (38-126) NT-Pro-B Natriuret Pep 83108 pg/mL H pg/mL (0-125) Total Protein 5.2 g/dL L g/dL (6.3-8.2) Albumin 2.7 g/dL L g/dL (3.5-5.0) Medications Given: Discontinued Medications Acetaminophen (Tylenol) 1,000 mg PO ONCE ONE Stop: 10/06/16 21:09 Last Admin: 10/06/16 21:14 Dose: 1,000 mg Vancomycin/Sodium Chloride (Vancomycin 1 Gm (Premix)) 250 mls @ 250 mls/hr IV EDNOW ONE PRN Reason: Protocol Stop: 10/06/16 22:07 Last Admin: 10/07/16 03:04 Dose: 250 mls Departure - Departure Disposition: [facility] Clinical Impression: Pulmonary edema Qualifiers: Chronicity: acute Qualified Code(s): J81.0 - Acute pulmonary edema Condition: Serious
[2016-10-06 19:17] LABS: % IMMATURE GRANULYOCYTES 0.4 % (0.0-1.1); ABSOLUTE IMMATURE GRANULOCYTES 0.04 10^3/uL (0.00-0.10); ADD DIFF? NO; ADD MORPH? NO; ADD SCAN? NO; ATYPICAL LYMPHOCYTE FLAG 0 (0-99); FRAGMENT RBC FLAG 0 (0-99); HEMATOCRIT 35.4 % (40.0-51.0); HEMOGLOBIN 11.2 g/dL (13.7-17.5); LEFT SHIFT FLG 0 (0-99); LIPEMIA HEMOLYSIS FLAG 80 (0-99); MEAN CELL HEMOGLOBIN 29.2 pg (27.9-34.1); MEAN CELL HEMOGLOBIN CONCENTR. 31.6 g/dL (32.4-36.7); MEAN CELL VOLUME 92.4 fL (81.5-99.8); MEAN PLATELET VOLUME 10.7 fL (8.7-11.7); PLATELET CLUMPS FLAG 20 (0-99); PLATELET COUNT 128 10^3/uL (150-400); RED BLOOD CELL COUNT 3.83 10^6/uL (4.40-6.38); RED CELL DISTRIBUTION WIDTH 15.9 % (11.5-15.2)
--- NOTE | 2016-10-06 19:22 | CPEKG ---
Heart Rate: 80 RR Interval: 750 P-R Interval: 164 QRSD Interval: 102 QT Interval: 408 QTC Interval: 471 P Hanna: 57 QRS Hanna: -54 T Wave Hanna: 92 EKG Severity - ABNORMAL ECG - EKG Impression: SINUS RHYTHM EKG Impression: MULTIPLE ATRIAL PREMATURE COMPLEXES EKG Impression: LEFT ANTERIOR FASCICULAR BLOCK EKG Impression: PROBABLE LATERAL INFARCT, AGE INDETERMINATE EKG Impression: PROBABLE ANTEROSEPTAL INFARCT, AGE INDETERM Electronically Signed By: Riki Geiger 06-Oct-2016 19:38:54
[2016-10-06 19:35] LABS: ALANINE AMINOTRANSFERASE 37 IU/L (21-72); ALBUMIN 2.7 g/dL (3.5-5.0); ALKALINE PHOSPHATASE 103 IU/L (38-126); ANION GAP 11 mEq/L (8-16); ASPARTATE AMINOTRANSFERASE 50 IU/L (17-59); BILIRUBIN,TOTAL 1.5 mg/dL (0.1-1.4); CALCIUM 8.3 mg/dL (8.5-10.4); CARBON DIOXIDE 27 mEq/l (22-31); CHLORIDE 98 mEq/L (97-110); CREATININE 4.2 mg/dL (0.7-1.3); GLOMERULAR FILTRATION RATE 14; GLUCOSE 65 mg/dL (70-100); POTASSIUM 4.7 mEq/L (3.5-5.2); SODIUM 136 mEq/L (134-144); TOTAL PROTEIN 5.2 g/dL (6.3-8.2)
--- NOTE | 2016-10-06 20:55 | SOAPPROG ---
SOAP Progress Note Assessment/Plan: Assessment: 1)ESRD- Donla Ferro [facility] -will HD tonight given volume overload/worsening hypoxia and then again tomorrow -pt reports EDW has been 56 kg but suspect needs challenging 2)Worsening hypoxia -suspect volume overload and plan HD now -may also have component recurrent pna jamie with new fever 3)Diastolic dysfunction 4)Recurrent pneumonia, bronchiectasis -gets inhaled tobramycin -denies any increased cough, fevers but developed fever to 103 here- checking blood cx and giving Vanco/Zosyn now (has TDC in place so will cover with vanco) 5)anemia of CKD 6)MBD of CKD -check phos am labs, renal diet when po I discussed with Dr. Geiger pager [phone] 10/06/16 21:12 Subjective: 66 M with h/o recurrent pna/bronchiectasis with recurrent admits here, ESRD ( Donal Ferro [facility]) admit with increasing SOB, hypoxia. Pt seen in ER. He reports he went to HD on Friday and was at EDW of 56- given 1L of IVF back. Denies any low BP, n/v, diarrhea. Frustrated as didn't want IVF. Reports increasing SOB over weekend, worse tonight. Now requiring 5L O2- typically needs 2L O2. Denies fevers but since arrival he now has fever 103. Has TDC in place- denies any erythema/drainage. Objective: Vital Signs Temp Pulse Resp BP Pulse Ox 37.5 C 82 18 156/81 H 94 10/06/16 17:57 10/06/16 17:57 10/06/16 17:57 10/06/16 17:57 10/06/16 17:57 Physical Exam - Physical Exam General Appearance: alert, other (frail and chronically ill appearing, on O2 and able to speak 3-4 word sentences, +tachypneic) EENT: other (mmm) Neck: other (RIJ TDC no erythema at exit site) Respiratory: other (crackles bilat bases) Cardiac/Chest: regular rate, rhythm, other (no rub) Abdomen: normal bowel sounds, non-tender, soft Skin: warm/dry Extremities: other (+edema bilat LE) Neuro/Psych: alert, oriented x 3 ICD10 Worksheet Patient Problems: Problems Problem Status Onset Pulmonary edema Acute Acute hyponatremia Acute Anemia Acute C. difficile diarrhea Acute ~06/18/16 CHF (congestive heart failure) Acute Chronic Disease Mgmt/Transitional Care Acute Chronic Disease Mgmt/Transitional Care Acute Chronic pneumonia Acute Chronic renal failure Acute Dehydration Acute Dialysis complication Acute ESBL (extended spectrum beta-lactamase) producing bacteria infection Acute Extended spectrum beta lactamase (ESBL) resistance Acute 02/28/16 Fever Acute Generalized weakness Acute History of pneumonia Acute Hypotension Acute Hypoxemia Acute Hypoxia Acute Leukocytosis Acute Lung infiltrate Acute Mitral valve replaced Acute Palliative care encounter Acute Pleural effusion Acute Pneumonia Acute Pneumonia Acute Pneumonia Acute Pneumonia due to Pseudomonas Acute Renal failure Acute Renal insufficiency Acute Renal transplant recipient Acute Sepsis Acute Severe sepsis Acute Severe sepsis Acute Shortness of breath Acute VRE (vancomycin-resistant Enterococci) Acute 01/11/16 Weakness Acute Weakness Acute
[2016-10-06] MEDS ORDERED: VANCOMYCIN HCL/NORMAL SALINE 250 ML IV ONE (21:08)
[2016-10-06] MEDS ORDERED: ACETAMINOPHEN 500 MG TAB PO ONE (21:08)
[2016-10-06] MEDS ORDERED: ACETAMINOPHEN 325 MG TAB PO PRN (21:31)
[2016-10-06] MEDS ORDERED: ONDANSETRON 4 MG/2 ML VIAL IVP PRN (21:31)
[2016-10-06] MEDS: HEPARIN 5,000 UNIT/0.5 ML SYR SC SCH (21:54)
--- NOTE | 2016-10-06 21:57 | GHP ---
[f rep st] HISTORY AND PHYSICAL DATE OF ADMISSION: 10/06/2016 CHIEF COMPLAINT: Shortness of breath. HISTORY OF PRESENT ILLNESS: This is a 66-year-old male, who is very familiar to our service. He manning s a history of end-stage renal disease due to polycystic kidney disease requiring a renal transplant that did fail and is now currently in dialysis. He has also a history of bronchiectasis and recurr ent pneumonia Pseudomonas, ESBL, E coli. He has a history of C diff and VRE colonization, as well a s immunoglobulin deficiency. He states over the last several days, he has been feeling increasing s hortness of breath. He is not particularly orthopneic. He has not had worsening of his cough. He has had noticed worsening edema. He states that he was actually given back L fluid on Friday, altho ugh he did not want that. He was not having fevers, but then did spike a fever to 103 here [facility]. He is denying any abdominal pain. No chest pain. REVIEW OF SYSTEMS: A 10-point review of systems was obtained and as stated above was negative. PAST MEDICAL HISTORY: 1. End-stage renal disease secondary to polycystic kidney disease with a failed kidney transplant n ow on hemodialysis. He does have a tunneled dialysis catheter. 2. History of bronchiectasis with recurrent pseudomonal pneumonia. 3. deficiency and receiving IVIG infusions every 4 weeks. 4. Chronic hypoxic respiratory failure. 5. Paroxysmal atrial fibrillation. 6. History of bioprosthetic mitral valve. 7. History of Clostridium difficile colitis. 8. History of West Nile virus. 9. Pulmonary hypertension. MEDICATIONS: Reviewed. SOCIAL HISTORY: No smoking. Lives alone. FAMILY HISTORY: Polycystic kidney disease. PHYSICAL EXAM: VITAL SIGNS: Temperature is 39.4, blood pressure 158/80, heart rate 80, oxygen satu ration 95% on 5 L. GENERAL: The patient is chronically ill-appearing, but in no apparent distress. HEENT: Nonicteric sclerae. Extraocular muscles intact. Moist mucous membranes. NECK: Supple. No thyromegaly. LUNGS: Good effort. Crackles in both bases. CARDIOVASCULAR: Regular rate and r hythm. No murmurs, gallops. ABDOMEN: Positive bowel sounds. Soft, nontender, nondistended. No h epatosplenomegaly. EXTREMITIES: 2+ pedal edema. NEUROLOGIC: Alert and oriented x3. Moving all 4 extremities equally. PSYCH: Normal affect. LABORATORY DATA: White count 10, hemoglobin 11, platelets 128. Sodium 136, potassium 4.7, BUN 31, creatinine 4.2, total bilirubin 1.5. Chest x-ray personally reviewed and interpreted shows cephaliz ation, possible pneumonia, infiltrates in the left mid lung and right lung base. They are patchy. EKG personally reviewed and interpreted. There is normal sinus rhythm with no acute ischemic change s. ASSESSMENT: This is a 66-year-old male presenting with dyspnea and probable fluid overload along wi th the fever. 1. Dyspnea most likely related to fluid overload. I would probably favor that over pneumonia, as h is cough has not really changed, his x-ray is minimally abnormal. However, he does have a fever and so it is still in the differential. 2. Fluid overload. Patient will be getting dialysis today in the emergency department. 3. Fever. Blood cultures have been drawn. He has been given a dose of IV vancomycin currently. W e will hold off on further antibiotics. We will get ID involved tomorrow because of his complicated infectious history. 4. Bronchiectasis. 5. Immunodeficiency bronchiectasis. Patient is getting inhaled tobramycin 1 month on 1 month off. 6. Immunodeficiency getting IVIG monthly. 7. Paroxysmal atrial fibrillation. Patient is sinus in rhythm. 8. History of bioprosthetic aortic valve. 9. Admission. Patient will be admitted under full admission status. Case discussed with ER nando aguilar. Old records reviewed and summarized in the HPI. /[id number]/MODL
[2016-10-07] MEDS: LEVALBUTEROL 1.25 MG/3 ML DEYVIAL IH PRN ×3 (00:29→22:05)
[2016-10-07] MEDS: HEPARIN 5,000 UNIT/0.5 ML SYR SC SCH ×2 (05:13→17:25)
[2016-10-07] MEDS ORDERED: HEPARIN 50,000 UNIT/10 ML VIAL ONE (05:23)
[2016-10-07 05:28] LABS: % IMMATURE GRANULYOCYTES 0.6 % (0.0-1.1); ABSOLUTE IMMATURE GRANULOCYTES 0.05 10^3/uL (0.00-0.10); ADD DIFF? NO; ADD MORPH? NO; ADD SCAN? YES; ATYPICAL LYMPHOCYTE FLAG 0 (0-99); FRAGMENT RBC FLAG 0 (0-99); HEMATOCRIT 31.7 % (40.0-51.0); HEMOGLOBIN 9.9 g/dL (13.7-17.5); LEFT SHIFT FLG 0 (0-99); LIPEMIA HEMOLYSIS FLAG 80 (0-99); MEAN CELL HEMOGLOBIN 29.2 pg (27.9-34.1); MEAN CELL HEMOGLOBIN CONCENTR. 31.2 g/dL (32.4-36.7); MEAN CELL VOLUME 93.5 fL (81.5-99.8); MEAN PLATELET VOLUME 9.9 fL (8.7-11.7); PLATELET CLUMPS FLAG 0 (0-99); PLATELET COUNT 80 10^3/uL (150-400); RED BLOOD CELL COUNT 3.39 10^6/uL (4.40-6.38); RED CELL DISTRIBUTION WIDTH 15.9 % (11.5-15.2)
[2016-10-07 05:44] LABS: ALANINE AMINOTRANSFERASE 37 IU/L (21-72); ALBUMIN 2.4 g/dL (3.5-5.0); ALKALINE PHOSPHATASE 93 IU/L (38-126); ANION GAP 14 mEq/L (8-16); ASPARTATE AMINOTRANSFERASE 41 IU/L (17-59); BILIRUBIN,TOTAL 1.2 mg/dL (0.1-1.4); CALCIUM 7.6 mg/dL (8.5-10.4); CARBON DIOXIDE 24 mEq/l (22-31); CHLORIDE 101 mEq/L (97-110); CREATININE 4.5 mg/dL (0.7-1.3); GLOMERULAR FILTRATION RATE 13; GLUCOSE 82 mg/dL (70-100); POTASSIUM 4.2 mEq/L (3.5-5.2); SODIUM 139 mEq/L (134-144); TOTAL PROTEIN 4.5 g/dL (6.3-8.2)
[2016-10-07 06:15] LABS: SCAN NEGATIVE
[2016-10-07] MEDS: CALCIUM ACETATE 667 MG CAP PO SCH ×3 (10:17→17:49)
[2016-10-07] MEDS: CARVEDILOL 6.25 MG TAB PO SCH ×2 (10:17→17:49)
[2016-10-07] MEDS: hydrOXYzine HCL 25 MG TAB PO SCH ×2 (10:18→21:28)
[2016-10-07] MEDS: guaiFENesin 600 MG TAB.ER PO SCH ×2 (10:18→21:28)
[2016-10-07] MEDS: AMIODARONE HCL 200 MG TAB PO SCH ×2 (10:18→21:28)
[2016-10-07] MEDS: Mometasone/Formoterol [Dulera 200 Mcg/5 Mcg Inhaler] IH SCH ×2 (10:24→22:06)
[2016-10-07] MEDS: LEVALBUTEROL INHALER 200 PUFFS/15 GM MDI IH SCH ×2 (10:24→22:04)
--- NOTE | 2016-10-07 10:35 | PCMIDPN ---
Assessment/Plan: Assessment/Plan: * Fever, dyspnea, and worsening pulmonary infiltrates consistent with recurrent pneumonia: Patient with longstanding history of recurring pneumonia with most recent sputum showing isolation of Stenotrophomonas. Previously cultures had shown Pseudomonas and more remotely ESBL producing E coli. patient received dose of vancomycin empirically given on dialysis. Will begin Zosyn 2.25 g IV q.8 hours. Will obtain sputum sample for culture if possible. Will repeat CT scan of chest to further evaluate pulmonary infiltrates. Depending on findings , may need additional pulmonary evaluation for bronchoscopy to obtain additional culture data and assess with secretion control. Line related infection in the setting of dialysis also of consideration although suspect less likely given other constellation of findings. * History of C difficile colitis: No active diarrhea. Given risk for recurrent disease with broad-spectrum antibiotic exposure, will begin oral vancomycin 125 mg orally twice daily. * Immunoglobulin deficiency: Patient last received IVIG on 08/08/2016. Will check quantitative IgG level. Time spent, greater than 35 minutes, of which greater than half was spent in coordination of care related to recurrent pneumonia, radiographic findings, and plan of care. 10/07/16 10:31 10/07/16 10:35 10/07/16 10:41 Subjective: Patient well known to Infectious Disease service from prior care related to recurrent pneumonia, immunoglobulin deficiency, and C difficile colitis in the setting of post renal transplantation. Readmitted with worsening dyspnea after he received fluid at dialysis. Upon arrival, he developed fever with chills. Now experiencing worsening dyspnea with cough which he describes as productive at times and nonproductive at times. He is due to resume inhaled tobramycin on 10/17/2016 which is being administered every other month. Last IVIG infusion was performed on 08/08/2016. No active nausea, vomiting or diarrhea. No recent travel or animal exposure. We are now asked to assist in his ongoing care. Objective: Vital Signs Temp Pulse Resp BP Pulse Ox 37.3 C 78 24 H 139/63 H 92 10/07/16 09:48 10/07/16 10:17 10/07/16 09:35 10/07/16 10:10/07/16 09:35 Laboratory Results 10/07/16 05:10 10/07/16 05:10 10/06/16 10/07/16 10/08/16 05:59 05:59 05:59 Intake Total 250 Balance 250 Status post vancomycin x1 Blood cultures x2 pending Chest x-ray with dense consolidation in left lower lobe as well as obscuring of right heart border Sputum from 08/18/2016 showed Stenotrophomonas IgG 591 on 08/06/2016 - Physical Exam General Appearance: alert, apparent distress ( dyspneic), non-toxic EENT: dry mucous membranes, No scleral icterus, No thrush Respiratory: respiratory distress ( increased respiratory effort with frequent wet cough present), crackles ( left lower lung field) Cardiac/Chest: regular rate, rhythm, systolic murmur ( 2/6 left upper sternal border) Abdomen: non-tender, No distended Skin: No embolic lesions ICD10 Worksheet Patient Problems: Problems Problem Status Onset Pulmonary edema Acute Acute hyponatremia Acute Anemia Acute C. difficile diarrhea Acute ~06/18/16 CHF (congestive heart failure) Acute Chronic Disease Mgmt/Transitional Care Acute Chronic Disease Mgmt/Transitional Care Acute Chronic pneumonia Acute Chronic renal failure Acute Dehydration Acute Dialysis complication Acute ESBL (extended spectrum beta-lactamase) producing bacteria infection Acute Extended spectrum beta lactamase (ESBL) resistance Acute 02/28/16 Fever Acute Generalized weakness Acute History of pneumonia Acute Hypotension Acute Hypoxemia Acute Hypoxia Acute Leukocytosis Acute Lung infiltrate Acute Mitral valve replaced Acute Palliative care encounter Acute Pleural effusion Acute Pneumonia Acute Pneumonia Acute Pneumonia Acute Pneumonia due to Pseudomonas Acute Renal failure Acute Renal insufficiency Acute Renal transplant recipient Acute Sepsis Acute Severe sepsis Acute Severe sepsis Acute Shortness of breath Acute VRE (vancomycin-resistant Enterococci) Acute 01/11/16 Weakness Acute Weakness Acute
[2016-10-07] MEDS: PIPERACILLIN/TAZO 2.25 GM/DEX 50 ML IV SCH ×3 (11:32→21:27)
--- NOTE | 2016-10-07 12:29 | SOAPPROG ---
SOAP Progress Note Assessment/Plan: Assessment/Plan: The patient is a 66 y/o M with a known h/o ESRD on HD MWF who presents with volume overload s/p dialysis last night. 1)ESRD- [facility] MWF -will HD tonight again today -pt reports EDW has been 56 kg but suspect needs challenging -contacted Dr. 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 for further information 2)Worsening hypoxia -may also have component recurrent pna jamie with new fever -will continue to UF on HD 3)Diastolic dysfunction 4)Recurrent pneumonia, bronchiectasis -gets inhaled tobramycin and IVIG monthly -s/p Vanc/Zosyn last night -ID consulted, appreciated -ok for patient to receive IV contrast as ESRD if needed to assess PNA -will continue to monitor central catheter and consider replacing pending cultures 5)Anemia of CKD -Hb drop to 9.9 today -will obtain KEYANA and iron at outpatient unit -monitor CBC on admission 6)MBD of CKD -check phos am labs, renal diet when po -calcium corrects to 8.9mg/dL with low albumin 10/07/16 12:29 10/07/16 12:31 10/07/16 12:38 10/07/16 12:41 Subjective: The patient is lying in bed awake and alert. He states he has not felt well since he was dialyzed Friday and received 500cc of "extra fluid". He tolerated dialysis well last night. He is on 2-4L NC at home. He admits to cough, SOB, and denies CP, diarrhea, or other ROS. Objective: Vital Signs Temp Pulse Resp BP Pulse Ox 37.3 C 78 24 H 139/63 H 92 10/07/16 09:48 10/07/16 10:10/07/16 09:35 10/07/16 10:10/07/16 09:35 Laboratory Results 10/07/16 05:10 10/07/16 05:10 10/06/16 10/07/16 10/08/16 05:59 05:59 05:59 Intake Total 250 Balance 250 Physical Exam - Physical Exam General Appearance: alert, mild distress, cachetic Neck: non-tender, full range of motion, supple Respiratory: chest non-tender, decreased breath sounds Cardiac/Chest: normal peripheral pulses, irregularly irregular Abdomen: normal bowel sounds, non-tender, soft Skin: normal color Lymphatic: no adenopathy Extremities: normal range of motion, non-tender, other (No edema, RUE AVF, sutures healing well, soft bruit ) Neuro/Psych: normal mood/affect, oriented x 3 ICD10 Worksheet Patient Problems: Problems Problem Status Onset Pulmonary edema Acute Acute hyponatremia Acute Anemia Acute C. difficile diarrhea Acute ~06/18/16 CHF (congestive heart failure) Acute Chronic Disease Mgmt/Transitional Care Acute Chronic Disease Mgmt/Transitional Care Acute Chronic pneumonia Acute Chronic renal failure Acute Dehydration Acute Dialysis complication Acute ESBL (extended spectrum beta-lactamase) producing bacteria infection Acute Extended spectrum beta lactamase (ESBL) resistance Acute 02/28/16 Fever Acute Generalized weakness Acute History of pneumonia Acute Hypotension Acute Hypoxemia Acute Hypoxia Acute Leukocytosis Acute Lung infiltrate Acute Mitral valve replaced Acute Palliative care encounter Acute Pleural effusion Acute Pneumonia Acute Pneumonia Acute Pneumonia Acute Pneumonia due to Pseudomonas Acute Renal failure Acute Renal insufficiency Acute Renal transplant recipient Acute Sepsis Acute Severe sepsis Acute Severe sepsis Acute Shortness of breath Acute VRE (vancomycin-resistant Enterococci) Acute 01/11/16 Weakness Acute Weakness Acute
--- NOTE | 2016-10-07 13:55 | HOSPPROG ---
Hospitalist Progress Note Assessment/Plan: Acute on chronic hypoxemic respiratory failure secondary to recurrent PNA and bronchiectasis - CT personally reviewed and interpreted, shows b/l effusions (R> L) and worsening opacities in right lung, ?aspiration. This is a recurring problem for Mr. Kaye and he has had multiple infectious organisms in past including pseudomonas, ESBL E coli, VRE. BCx's and sputum Cx pending. Also consider central line infection with dialysis catheter, though findings more c/ w PNA. -Cont Zosyn and Vanc per ID recs -F/U blood cultures, sputum cx sent -speech / swallow eval -cont inh tobramycin for bronchiectasis -will request pulmonary consult for possible bronchoscopy for secretion management and Cx for organism B/L pleural effusions R>L - thoracentesis today for GS, Cx's, cytology, LDH, protein. Discussed with pt. ESRD 2/2 polycystic kidney - HD last night per renal, will dialyze again today -renal diet -renally dosed medications H/O C diff - cont po vanc while on broad spectrum atbx Anemia - in setting of CKD. 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 H/O bioprosthetic mitral valve Full code DVT PPLX - PHILLY Dispo - cont inpt. Discussed end stage lung dz with pt, he is agreeable to palliative care consult, but states he still wants full tx. What complicates this is that he refuses a swallow evaluation and refuses to take thickened liquids if that's what recommended. I advised him it is incongruent to not follow aspiration precautions but continue aggressive tx for recurrent asp PNA. If he wishes for full, "recreational" diet, should consider comfort measures. He will need SNF. Subjective: Pt says breathing is a bit better. Still feels feverish. +wet cough. Denies orthopnea. Says he wants full treatment. Plans to somehow move to [place], where his ex- lives. Objective: Vital Signs Temp Pulse Resp BP Pulse Ox 37.3 C 78 24 H 139/63 H 92 10/07/16 09:48 10/07/16 10:17 10/07/16 09:35 10/07/16 10:17 10/07/16 09:35 Laboratory Results 10/07/16 05:10 10/07/16 05:10 10/06/16 10/07/16 10/08/16 05:59 05:59 05:59 Intake Total 250 Balance 250 - Physical Exam Constitutional: chronically ill appearing Eyes: PERRL Ears, Nose, Mouth, Throat: moist mucous membranes Cardiovascular: regular rate and rhythym Respiratory: no respiratory distress, other (bibasilar crackles and crackles throughout right lung field) Gastrointestinal: normoactive bowel sounds, soft, non-tender abdomen Skin: warm Musculoskeletal: generalized weakness Neurologic: AAOx3 Psychiatric: interacting appropriately ICD10 Worksheet Patient Problems: Problems Problem Status Onset Pulmonary edema Acute Acute hyponatremia Acute Anemia Acute C. difficile diarrhea Acute ~06/18/16 CHF (congestive heart failure) Acute Chronic Disease Mgmt/Transitional Care Acute Chronic Disease Mgmt/Transitional Care Acute Chronic pneumonia Acute Chronic renal failure Acute Dehydration Acute Dialysis complication Acute ESBL (extended spectrum beta-lactamase) producing bacteria infection Acute Extended spectrum beta lactamase (ESBL) resistance Acute 02/28/16 Fever Acute Generalized weakness Acute History of pneumonia Acute Hypotension Acute Hypoxemia Acute Hypoxia Acute Leukocytosis Acute Lung infiltrate Acute Mitral valve replaced Acute Palliative care encounter Acute Pleural effusion Acute Pneumonia Acute Pneumonia Acute Pneumonia Acute Pneumonia due to Pseudomonas Acute Renal failure Acute Renal insufficiency Acute Renal transplant recipient Acute Sepsis Acute Severe sepsis Acute Severe sepsis Acute Shortness of breath Acute VRE (vancomycin-resistant Enterococci) Acute 01/11/16 Weakness Acute Weakness Acute
[2016-10-07 17:26] LABS: INR 1.21 (0.83-1.16); PROTIME(PATIENT) 15.3 SEC (12.0-15.0)
[2016-10-07] MEDS: MONTELUKAST SODIUM 10 MG TAB PO SCH (17:49)
[2016-10-07] MEDS ORDERED: LIDOCAINE 1% 300 MG/30 ML SDV ONE (17:58)
[2016-10-07 18:19] LABS: LACTATE DEHYDROGENASE 773 IU/L (313-618)
[2016-10-07] MEDS ORDERED: HEPARIN 10,000 UNIT/10 ML MDV ONE (19:36)
[2016-10-07 19:43] LABS: LD, PLEURAL FLUID 277 IU/L
[2016-10-07] MEDS: VANCOMYCIN 125 MG/2.5 ML UDL PO SCH (21:27)
[2016-10-07] MEDS: traZODone 50 MG TAB PO PRN (21:28)
[2016-10-07] MEDS: TIOTROPIUM INHALER 18 MCG/DOSE 5 DOSE/MDI IH SCH (22:06)
--- NOTE | 2016-10-08 03:35 | GCON ---
[f rep st] CONSULTATION CHEST CONSULTATION REASON FOR ADMISSION: Pneumonia. HISTORY OF PRESENT ILLNESS: The patient is a 66-year-old white male, well known to myself with exte nsive past medical history including end-stage renal disease secondary to polycystic kidney disease for which he is on dialysis. He also has history of bronchiectasis with recurrent pseudomonal infec tions, immunoglobulin deficiency, and history of C difficile and VRE colonization. He presents with a 3-day history of feeling unwell. He describes this mostly as fatigue. He does admit to a cough, but he states this is not significantly changed. He admits to a fever up to 103. There is no chest pain, pleuritic-type chest pain, or angina equivalent. No fever or night sweats. He is currently on dialysis and feels somewhat better from respiratory standpoint since his admission. PAST MEDICAL HISTORY: Again, significant for bronchiectasis, recurrent pseudomonal pneumonias, immu ne globulin deficiency, chronic hypoxemic respiratory failure, bioprosthetic mitral valve, history o f C difficile colitis, history of pulmonary hypertension, and end-stage renal disease. SOCIAL HISTORY: No history of tobacco use. No history of alcohol use. He lives alone. PHYSICAL EXAMINATION: VITAL SIGNS: Blood pressure is 139/63, pulse is 93, respirations 24, tempera ture is 37.3, oxygen saturation 98% on 3 L. GENERAL: He is a thin malnourished 66-year-old white m naman who is currently on dialysis and nasal cannula oxygen. HEENT: Eyes are PERRLA, EOMI. Throat s hows no erythema or tonsillar hypertrophy. NECK: Supple. There is no cervical adenopathy. HEART: Regular rate and rhythm without murmurs, rubs, gallops. LUNGS: Diminished breath sounds. Increa sed crackles in the right base. ABDOMEN: Soft, nontender. Bowel sounds are present in all 4 quadr ants. EXTREMITIES: No clubbing, cyanosis, or edema. LABORATORY DATA: White count is 9.0, hemoglobin 9.9, hematocrit 31, platelet count is 80. Sodium 1 39, potassium 4.2, chloride 101, CO2 is 24, BUN 32, creatinine 4.5, glucose is 82. BNP is markedly elevated at 71,500. CT scan of the chest shows bilateral pleural effusions. He has patchy ground-glass opacification in the right lung. IMPRESSION: 1. Pneumonia with pleural effusion, etiology of which is unclear, though given his history of bronc hiectasis and recurrent pseudomonal infections, this would appear to be most likely. 2. History of bronchiectasis. 3. End-stage renal disease, currently on dialysis. 4. Chronic respiratory failure. 5. Immunoglobulin deficiency. 6. Pulmonary hypertension. RECOMMENDATIONS: 1. Would perform thoracentesis at soonest. 2. Await sputum culture. 3. Agree with current antibiotic coverage, as well as infectious disease consult. 4. If patient has not improved in the next 24 hours, would proceed with fiberoptic bronchoscopy. 5. Agree with palliative consult. /[id number]/MODL
[2016-10-08 05:16] LABS: % IMMATURE GRANULYOCYTES 0.1 % (0.0-1.1); ABSOLUTE IMMATURE GRANULOCYTES 0.01 10^3/uL (0.00-0.10); ADD DIFF? NO; ADD MORPH? NO; ADD SCAN? NO; ATYPICAL LYMPHOCYTE FLAG 0 (0-99); FRAGMENT RBC FLAG 0 (0-99); HEMATOCRIT 32.6 % (40.0-51.0); HEMOGLOBIN 10.1 g/dL (13.7-17.5); LEFT SHIFT FLG 0 (0-99); LIPEMIA HEMOLYSIS FLAG 80 (0-99); MEAN CELL HEMOGLOBIN 28.9 pg (27.9-34.1); MEAN CELL VOLUME 93.1 fL (81.5-99.8); MEAN PLATELET VOLUME 10.5 fL (8.7-11.7); PLATELET CLUMPS FLAG 0 (0-99); PLATELET COUNT 72 10^3/uL (150-400); RED CELL DISTRIBUTION WIDTH 16.2 % (11.5-15.2)
[2016-10-08] MEDS: PIPERACILLIN/TAZO 2.25 GM/DEX 50 ML IV SCH ×3 (05:16→21:15)
[2016-10-08 05:45] LABS: ALBUMIN 2.2 g/dL (3.5-5.0); ANION GAP 12 mEq/L (8-16); CALCIUM 7.6 mg/dL (8.5-10.4); CARBON DIOXIDE 25 mEq/l (22-31); CHLORIDE 100 mEq/L (97-110); CREATININE 3.5 mg/dL (0.7-1.3); GLOMERULAR FILTRATION RATE 18; GLUCOSE 54 mg/dL (70-100); SODIUM 137 mEq/L (134-144)
[2016-10-08] MEDS: VANCOMYCIN 125 MG/2.5 ML UDL PO SCH ×2 (09:40→21:13)
[2016-10-08] MEDS: CARVEDILOL 6.25 MG TAB PO SCH ×3 (09:40→18:31)
[2016-10-08] MEDS: guaiFENesin 600 MG TAB.ER PO SCH ×2 (09:41→21:13)
[2016-10-08] MEDS: AMIODARONE HCL 200 MG TAB PO SCH ×2 (09:41→21:13)
[2016-10-08] MEDS: CALCIUM ACETATE 667 MG CAP PO SCH ×3 (09:41→18:31)
[2016-10-08] MEDS: hydrOXYzine HCL 25 MG TAB PO SCH ×2 (09:41→21:13)
[2016-10-08] MEDS: LEVALBUTEROL 1.25 MG/3 ML DEYVIAL IH PRN ×2 (10:25→21:42)
[2016-10-08] MEDS: LEVALBUTEROL INHALER 200 PUFFS/15 GM MDI IH SCH ×2 (10:26→21:42)
[2016-10-08] MEDS: Mometasone/Formoterol [Dulera 200 Mcg/5 Mcg Inhaler] IH SCH ×2 (10:27→21:42)
--- NOTE | 2016-10-08 10:32 | HOSPPROG ---
Hospitalist Progress Note Assessment/Plan: Acute on chronic hypoxemic respiratory failure secondary to recurrent PNA and bronchiectasis - CT personally reviewed and interpreted, shows b/l effusions (R> L) and worsening opacities in right lung, ?aspiration. This is a recurring problem for Mr. Kaye and he has had multiple infectious organisms in past including pseudomonas, ESBL E coli, VRE. BCx's NGTD, sputum Cx pending, No orgs on pleural fluid gram stain, Cx pending. Also consider central line infection with dialysis catheter, though findings more c/w PNA. -Cont Zosyn and Vanc per ID recs -F/U blood cultures, sputum cx -speech / swallow eval -cont inh tobramycin for bronchiectasis -pulmonary consulted, may undergo bronchoscopy tomorow to help with secretions and obtain deep Cx B/L pleural effusions R>L - thoracentesis yesterday, fluid is transudative, likely secondary to volume overload in setting of ESRD. ESRD 2/2 polycystic kidney - HD on admission and again yesterday per renal -renal diet -renally dosed medications H/O C diff - cont po vanc while on broad spectrum atbx Anemia - in setting of CKD. 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 H/O bioprosthetic mitral valve Full code DVT PPLX - PHILLY Dispo - cont inpt. Discussed end stage lung dz with pt, he is agreeable to palliative care consult, but states he still wants full tx. What complicates this is that he refuses a swallow evaluation and refuses to take thickened liquids if that's what recommended. I advised him it is incongruent to not follow aspiration precautions but continue aggressive tx for recurrent asp PNA. If he wishes for full, "recreational" diet, should consider comfort measures. He will need SNF. Subjective: Pt is up in chair, eating oatmeal. Appetite improving. Breathing improving. No fevers overnight. No CP or SOB at rest. Objective: Vital Signs Temp Pulse Resp BP Pulse Ox 37.0 C 75 20 102/51 L 89 L 10/08/16 08:00 10/08/16 08:00 10/08/16 08:00 10/08/16 08:00 10/08/16 08:00 Microbiology 10/07/16 16:20 - Final Sputum, Expectorated 10/07/16 15:27 Gram Stain - Final Thoracic Fluid - Aspirate Laboratory Results 10/08/16 04:42 10/08/16 04:42 10/07/16 10/08/16 10/09/16 05:59 05:59 05:59 Intake Total 250 940 Balance 250 940 PT 15.3 SEC (12.0-15.0) H 10/07/16 17:10 INR 1.21 (0.83-1.16) H 10/07/16 17:10 - Physical Exam Constitutional: chronically ill appearing Eyes: PERRL Ears, Nose, Mouth, Throat: moist mucous membranes Cardiovascular: regular rate and rhythym Respiratory: no respiratory distress, inspiratory crackles Gastrointestinal: normoactive bowel sounds, soft, non-tender abdomen Skin: warm Musculoskeletal: generalized weakness Neurologic: AAOx3 Psychiatric: interacting appropriately ICD10 Worksheet Patient Problems: Problems Problem Status Onset Pulmonary edema Acute Acute hyponatremia Acute Anemia Acute C. difficile diarrhea Acute ~06/18/16 CHF (congestive heart failure) Acute Chronic Disease Mgmt/Transitional Care Acute Chronic Disease Mgmt/Transitional Care Acute Chronic pneumonia Acute Chronic renal failure Acute Dehydration Acute Dialysis complication Acute ESBL (extended spectrum beta-lactamase) producing bacteria infection Acute Extended spectrum beta lactamase (ESBL) resistance Acute 02/28/16 Fever Acute Generalized weakness Acute History of pneumonia Acute Hypotension Acute Hypoxemia Acute Hypoxia Acute Leukocytosis Acute Lung infiltrate Acute Mitral valve replaced Acute Palliative care encounter Acute Pleural effusion Acute Pneumonia Acute Pneumonia Acute Pneumonia Acute Pneumonia due to Pseudomonas Acute Renal failure Acute Renal insufficiency Acute Renal transplant recipient Acute Sepsis Acute Severe sepsis Acute Severe sepsis Acute Shortness of breath Acute VRE (vancomycin-resistant Enterococci) Acute 01/11/16 Weakness Acute Weakness Acute
--- NOTE | 2016-10-08 14:48 | PDPCPN ---
Palliative Care Progress Note Assessment/Plan: Referring provider: Dr Giles Reason for consult: Complex medical decision making Symptom control HPI: Armin Kaye is a 66 yo male with PMH ESRD s/p transplant in but with failure now on dialysis again, PCKD, [place], recurrent PNA, and immunoglobulin deficiency admitted to the hospital for SOB. Being treated for recurrent PNA with ? of fluid overload. Previously seen by PC 01/2016. Palliative care consulted for complex medical decision making. Met with Armin this morning. He spoke about how he understands he is no longer a transplant candidate. This is a change from the last time PC met with him. We discussed what he understands about his lung disease and he stated "this is just a temporary situation with no fdc issues". He has had multiple admissions to the hospital this year 8 and last year. We talked about how he is doing with this current PNA and he stated he feels much weaker. He generally discussed his fdc goals which are to sell his house and move into an assisted living facility as he can no longer care for his house in his condition. He also spoke about possibly moving to [place] in the future where his ex lives. He did not speak much about his end of life goals other than to say if he did not improve in physical strength he would just "lay in bed and watch movies". We discussed code status and he stated he would want intubation but if it was going to not be successful then he "would make the decision then". Also discussed CPR in which he stated he would not want life prolonging measures if he were brain . Assessment: Physical: - Pain: denies pain - - Dyspnea: on occasion - oxygen as needed - mucinex BID - fan can also help with dyspnea if needed - dysphagia: - ST consulted- refused Emotional/psychological: flat affect Advanced Care Planning: Is patient decisional?: Yes Code Status: Full- but would not want to live in a vegetative state. He would want intubation if needed. POA: Friend Naren is MDPOA. Plan: PC will continue to follow to help establish goals of care. he is looking into assisted living for more permanent placement. Subjective: i'm very weak Objective: Social History: . Lives alone. Likes to read magazines and watch movies on his computer. Has some local friends who visit on occasion. Medication list reviewed ROS: General: fatigue, weakness, weight loss ENT: dysphagia Resp: dyspnea, cough GI: poor appetite : negative MS: negative Skin: negative Neuro: negative Psych: flat affect Functional assessment: PPS: 40% Functional status: dependent on ADLs, IADLs Vital Signs Temp Pulse Resp BP Pulse Ox 36.3 C 75 20 93/48 L 97 10/08/16 11:35 10/08/16 11:35 10/08/16 11:35 10/08/16 11:35 10/08/16 11:35 Microbiology 10/07/16 16:20 - Final Sputum, Expectorated 10/07/16 15:27 Gram Stain - Final Thoracic Fluid - Aspirate Laboratory Results 10/08/16 04:42 10/08/16 04:42 10/07/16 10/08/16 10/09/16 05:59 05:59 05:59 Intake Total 250 940 Balance 250 940 PT 15.3 SEC (12.0-15.0) H 10/07/16 17:10 INR 1.21 (0.83-1.16) H 10/07/16 17:10 Physical Exam - Physical Exam General Appearance: alert, no apparent distress Respiratory: No respiratory distress, No accessory muscle use Skin: warm/dry, pallor Extremities: No pedal edema Neuro/Psych: alert, oriented x 3 ICD10 Worksheet Patient Problems: Problems Problem Status Onset Pulmonary edema Acute Acute hyponatremia Acute Anemia Acute C. difficile diarrhea Acute ~06/18/16 CHF (congestive heart failure) Acute Chronic Disease Mgmt/Transitional Care Acute Chronic Disease Mgmt/Transitional Care Acute Chronic pneumonia Acute Chronic renal failure Acute Dehydration Acute Dialysis complication Acute ESBL (extended spectrum beta-lactamase) producing bacteria infection Acute Extended spectrum beta lactamase (ESBL) resistance Acute 02/28/16 Fever Acute Generalized weakness Acute History of pneumonia Acute Hypotension Acute Hypoxemia Acute Hypoxia Acute Leukocytosis Acute Lung infiltrate Acute Mitral valve replaced Acute Palliative care encounter Acute Pleural effusion Acute Pneumonia Acute Pneumonia Acute Pneumonia Acute Pneumonia due to Pseudomonas Acute Renal failure Acute Renal insufficiency Acute Renal transplant recipient Acute Sepsis Acute Severe sepsis Acute Severe sepsis Acute Shortness of breath Acute VRE (vancomycin-resistant Enterococci) Acute 01/11/16 Weakness Acute Weakness Acute
--- NOTE | 2016-10-08 15:29 | PCMIDPN ---
Assessment/Plan: 66-year-old man well known to me with end-stage renal disease and failed renal transplant who has recurrent pneumonia which is multifactorial due to underlying bronchiectasis, immune compromise returns the hospital with fever and worsening hypoxia with chest CT showing patchy ground-glass infiltrates on the right. Patient was empirically started on Zosyn and vancomycin on admission # recurrent pneumonia with MDR organisms: Recent interventions include discontinuation of steroids, discontinuation Prograf. Patient admits to limited use of inhalers and chest PT at home. In addition he refuses to use thickened liquids with known silent aspiration. Patient reports his pulmonary symptoms are slightly improved today. his now on 3 L O2 # volume overload with end-stage renal disease # exudative pleural effusion # IgG deficiency # marked debilitation: Patient desires to continue with aggressive treatment of his multiple medical problems. # thrombocytopenia: Could be related to antibiotics will continue to monitor recommendations 1. discontinue vancomycin no evidence of gram-positive organism 2. Would continue renal dosed Zosyn for coverage of Pseudomonas. Notable gap in coverage is Known history ESBL E coli. 3. patient will likely need 2-4 weeks of IV antibiotics for treatment of pneumonia, hold off for PICC line for now 4. working on long-term assisted living to help patient complete necessary therapies at home to help maintain stability of his lung disease. 5. Will obtain a calorie count, could patient benefit from temporary Doppler off and additional count from tube feeds . medication vancomycin on 10/07 1 g x1 Zosyn 2.25 g IV Q 8 microbiology 10/06 blood cultures 2 sets no growth today 10/07 sputum culture : NLF GNR and LF GNR, id pending Subjective: patient reports that he is feeling better today, still with coughing and severe fatigue. He continues to desire aggressive therapy despite difficulties controlling his multiple medical problems. Objective: Vital Signs Temp Pulse Resp BP Pulse Ox 36.3 C 75 20 93/48 L 97 10/08/16 11:35 10/08/16 11:35 10/08/16 11:35 10/08/16 11:35 10/08/16 11:35 Microbiology 10/07/16 16:20 - Final Sputum, Expectorated 10/07/16 15:27 Gram Stain - Final Thoracic Fluid - Aspirate Laboratory Results 10/08/16 04:42 10/08/16 04:42 10/07/16 10/08/16 10/09/16 05:59 05:59 05:59 Intake Total 250 940 Balance 250 940 - Physical Exam General Appearance: alert, no apparent distress, cachetic, thin EENT: No thrush Respiratory: crackles ( bilateral lower half) Neck: supple Cardiac/Chest: regular rate, rhythm Extremities: pedal edema ( trace) Skin: other ( scattered ecchymosis), No rash Neuro/Psych: alert, normal mood/affect, oriented x 3 - Line/s [place]ck[place] Lines: other ( right chest wall), No drainage, No erythema - Time Spent With Patient Time Spent with Patient: greater than 35 minutes Time Spent with Patient: Greater than 35 minutes spent on this patients care, greater than 50% of time spent counseling, educating, and coordinating care regarding the above mentioned plan. ICD10 Worksheet Patient Problems: Problems Problem Status Onset Pulmonary edema Acute Acute hyponatremia Acute Anemia Acute C. difficile diarrhea Acute ~06/18/16 CHF (congestive heart failure) Acute Chronic Disease Mgmt/Transitional Care Acute Chronic Disease Mgmt/Transitional Care Acute Chronic pneumonia Acute Chronic renal failure Acute Dehydration Acute Dialysis complication Acute ESBL (extended spectrum beta-lactamase) producing bacteria infection Acute Extended spectrum beta lactamase (ESBL) resistance Acute 02/28/16 Fever Acute Generalized weakness Acute History of pneumonia Acute Hypotension Acute Hypoxemia Acute Hypoxia Acute Leukocytosis Acute Lung infiltrate Acute Mitral valve replaced Acute Palliative care encounter Acute Pleural effusion Acute Pneumonia Acute Pneumonia Acute Pneumonia Acute Pneumonia due to Pseudomonas Acute Renal failure Acute Renal insufficiency Acute Renal transplant recipient Acute Sepsis Acute Severe sepsis Acute Severe sepsis Acute Shortness of breath Acute VRE (vancomycin-resistant Enterococci) Acute 01/11/16 Weakness Acute Weakness Acute
--- NOTE | 2016-10-08 15:45 | SOAPPROG ---
SOAP Progress Note Assessment/Plan: Assessment: ESRD recurrent pneumonia cachexia Plan: HD tomorrow possible bronchoscopy ABX per ID 10/08/16 15:42 Subjective: up to chair feels weak +SOB, cough and sputum not eating much Objective: Vital Signs Temp Pulse Resp BP Pulse Ox 36.3 C 75 20 93/48 L 97 10/08/16 11:35 10/08/16 11:35 10/08/16 11:35 10/08/16 11:35 10/08/16 11:35 Microbiology 10/07/16 16:20 - Final Sputum, Expectorated 10/07/16 15:27 Gram Stain - Final Thoracic Fluid - Aspirate Laboratory Results 10/08/16 04:42 10/08/16 04:42 10/07/16 10/08/16 10/09/16 05:59 05:59 05:59 Intake Total 250 940 Balance 250 940 PT 15.3 SEC (12.0-15.0) H 10/07/16 17:10 INR 1.21 (0.83-1.16) H 10/07/16 17:10 Physical Exam - Physical Exam General Appearance: alert, cachetic Respiratory: rales, rhonchi, wheezing Cardiac/Chest: regular rate, rhythm, No friction rub Abdomen: normal bowel sounds, soft, other (mild distension) Extremities: pedal edema (trace) Neuro/Psych: alert, oriented x 3 ICD10 Worksheet Patient Problems: Problems Problem Status Onset Pulmonary edema Acute Acute hyponatremia Acute Anemia Acute C. difficile diarrhea Acute ~06/18/16 CHF (congestive heart failure) Acute Chronic Disease Mgmt/Transitional Care Acute Chronic Disease Mgmt/Transitional Care Acute Chronic pneumonia Acute Chronic renal failure Acute Dehydration Acute Dialysis complication Acute ESBL (extended spectrum beta-lactamase) producing bacteria infection Acute Extended spectrum beta lactamase (ESBL) resistance Acute 02/28/16 Fever Acute Generalized weakness Acute History of pneumonia Acute Hypotension Acute Hypoxemia Acute Hypoxia Acute Leukocytosis Acute Lung infiltrate Acute Mitral valve replaced Acute Palliative care encounter Acute Pleural effusion Acute Pneumonia Acute Pneumonia Acute Pneumonia Acute Pneumonia due to Pseudomonas Acute Renal failure Acute Renal insufficiency Acute Renal transplant recipient Acute Sepsis Acute Severe sepsis Acute Severe sepsis Acute Shortness of breath Acute VRE (vancomycin-resistant Enterococci) Acute 01/11/16 Weakness Acute Weakness Acute
--- NOTE | 2016-10-08 15:55 | SOAPPROG ---
SOAP Progress Note Assessment/Plan: Assessment/plan: * Pneumonia-clinically improved -continue current antibiotics -will hold bronchoscopy for now * Pleural effusion-status post thoracentesis. This is transudative in nature. * Acute respiratory failure secondary to pneumonia-markedly improved with reduction in his oxygen requirements * End-stage renal disease-on dialysis * Immunoglobulin deficiency * Pulmonary hypertension Subjective: Sitting up in chair. Feels markedly improved. Less cough. Less breathless Objective: Vital Signs Temp Pulse Resp BP Pulse Ox 36.3 C 75 20 93/48 L 97 10/08/16 11:35 10/08/16 11:35 10/08/16 11:35 10/08/16 11:35 10/08/16 11:35 Microbiology 10/07/16 16:20 - Final Sputum, Expectorated 10/07/16 15:27 Gram Stain - Final Thoracic Fluid - Aspirate Laboratory Results 10/08/16 04:42 10/08/16 04:42 10/07/16 10/08/16 10/09/16 05:59 05:59 05:59 Intake Total 250 940 Balance 250 940 PT 15.3 SEC (12.0-15.0) H 10/07/16 17:10 INR 1.21 (0.83-1.16) H 10/07/16 17:10 Physical Exam - Physical Exam General Appearance: alert, no apparent distress EENT: PERRL/EOMI, normal ENT inspection Neck: non-tender, full range of motion, supple, normal inspection Respiratory: crackles (Right greater than left), No respiratory distress, No wheezing Cardiac/Chest: normal peripheral pulses, regular rate, rhythm, systolic murmur Abdomen: normal bowel sounds, non-tender, soft Male Genitalia: deferred Rectal: deferred Skin: normal color, warm/dry Extremities: normal range of motion, non-tender, normal inspection, normal capillary refill ICD10 Worksheet Patient Problems: Problems Problem Status Onset Pulmonary edema Acute Acute hyponatremia Acute Anemia Acute C. difficile diarrhea Acute ~06/18/16 CHF (congestive heart failure) Acute Chronic Disease Mgmt/Transitional Care Acute Chronic Disease Mgmt/Transitional Care Acute Chronic pneumonia Acute Chronic renal failure Acute Dehydration Acute Dialysis complication Acute ESBL (extended spectrum beta-lactamase) producing bacteria infection Acute Extended spectrum beta lactamase (ESBL) resistance Acute 02/28/16 Fever Acute Generalized weakness Acute History of pneumonia Acute Hypotension Acute Hypoxemia Acute Hypoxia Acute Leukocytosis Acute Lung infiltrate Acute Mitral valve replaced Acute Palliative care encounter Acute Pleural effusion Acute Pneumonia Acute Pneumonia Acute Pneumonia Acute Pneumonia due to Pseudomonas Acute Renal failure Acute Renal insufficiency Acute Renal transplant recipient Acute Sepsis Acute Severe sepsis Acute Severe sepsis Acute Shortness of breath Acute VRE (vancomycin-resistant Enterococci) Acute 01/11/16 Weakness Acute Weakness Acute
[2016-10-08] MEDS: MONTELUKAST SODIUM 10 MG TAB PO SCH (18:31)
[2016-10-08] MEDS: ONDANSETRON DISINTEGRATING 4 MG TAB PO PRN (19:15)
[2016-10-08] MEDS: traZODone 50 MG TAB PO PRN (21:19)
[2016-10-08] MEDS: TIOTROPIUM INHALER 18 MCG/DOSE 5 DOSE/MDI IH SCH (21:43)
[2016-10-09] MEDS: PIPERACILLIN/TAZO 2.25 GM/DEX 50 ML IV SCH ×3 (05:20→21:06)
[2016-10-09 05:59] LABS: ALBUMIN 2.1 g/dL (3.5-5.0); ANION GAP 12 mEq/L (8-16); CALCIUM 7.9 mg/dL (8.5-10.4); CARBON DIOXIDE 23 mEq/l (22-31); CHLORIDE 99 mEq/L (97-110); CREATININE 4.7 mg/dL (0.7-1.3); GLOMERULAR FILTRATION RATE 13; GLUCOSE 94 mg/dL (70-100); POTASSIUM 4.3 mEq/L (3.5-5.2); SODIUM 134 mEq/L (134-144)
--- NOTE | 2016-10-09 09:40 | PCMIDPN ---
Assessment/Plan: # Bronchiectasis with recurrent pneumonia with MDR organisms, resp status improved on Zosyn, CXR reviewed and still quite abnormal. NLF GNR suggests PsA. Still requiring 4L O2 which is up from baseline 2-3L --continue renal dose zosyn --likely needs IV antibiotics to complete Rx of PNA # Transudative pleural effusion with elevated eosinophils # IgG deficiency - IgG level pending # marked debilitation: Patient desires continued with aggressive treatment of his multiple medical problems . # thrombocytopenia: Could be related to antibiotics will continue to monitor, CBC not repeated today # ESRD : patient desires to change outpatient HD unit # H/o Cdiff with some diarrhea overnight. On suppressive PO vancomycin while on broad spec abx --monitor symptoms, hold off on testing for now medication vancomycin on 10/07 1 g x1 Zosyn 2.25 g IV Q 8, #2 vancomycin 125mg PO BID microbiology 10/06 blood cultures 2 sets no growth today 10/07 sputum culture : NLF GNR and LF GNR, id pending 10/07 pleural fluid: NGTD Subjective: N/V overnight and diarrhea. Feeling better today. Denies abdominal pain Resp symptoms unchanged Objective: Vital Signs Temp Pulse Resp BP Pulse Ox 36.8 C 71 16 124/59 H 94 10/09/16 07:46 10/09/16 07:46 10/09/16 07:46 10/09/16 07:46 10/09/16 07:46 Microbiology 10/07/16 15:27 Gram Stain - Final Thoracic Fluid - Aspirate 10/07/16 16:20 - Final Sputum, Expectorated Laboratory Results 10/08/16 04:42 10/09/16 05:24 10/08/16 10/09/16 10/10/16 05:59 05:59 05:59 Intake Total 940 404 Balance 940 404 - Physical Exam General Appearance: alert, cachetic EENT: pale conjunctiva, No scleral icterus Respiratory: crackles (L>R base) Cardiac/Chest: regular rate, rhythm, systolic murmur, other (hyperdynamic precordium) Extremities: No pedal edema Abdomen: normal bowel sounds, non-tender, soft, distended Male Genitalia: No mercer Skin: pallor, No rash Neuro/Psych: alert, oriented x 3, depressed affect - Line/s Mckoy Lines: other (R chest wall), No drainage, No erythema - Time Spent With Patient Time Spent with Patient: greater than 35 minutes Time Spent with Patient: Greater than 35 minutes spent on this patients care, greater than 50% of time spent counseling, educating, and coordinating care regarding the above mentioned plan. ICD10 Worksheet Patient Problems: Problems Problem Status Onset Pulmonary edema Acute Acute hyponatremia Acute Anemia Acute C. difficile diarrhea Acute ~06/18/16 CHF (congestive heart failure) Acute Chronic Disease Mgmt/Transitional Care Acute Chronic Disease Mgmt/Transitional Care Acute Chronic pneumonia Acute Chronic renal failure Acute Dehydration Acute Dialysis complication Acute ESBL (extended spectrum beta-lactamase) producing bacteria infection Acute Extended spectrum beta lactamase (ESBL) resistance Acute 02/28/16 Fever Acute Generalized weakness Acute History of pneumonia Acute Hypotension Acute Hypoxemia Acute Hypoxia Acute Leukocytosis Acute Lung infiltrate Acute Mitral valve replaced Acute Palliative care encounter Acute Pleural effusion Acute Pneumonia Acute Pneumonia Acute Pneumonia Acute Pneumonia due to Pseudomonas Acute Renal failure Acute Renal insufficiency Acute Renal transplant recipient Acute Sepsis Acute Severe sepsis Acute Severe sepsis Acute Shortness of breath Acute VRE (vancomycin-resistant Enterococci) Acute 01/11/16 Weakness Acute Weakness Acute
[2016-10-09] MEDS: hydrOXYzine HCL 25 MG TAB PO SCH ×2 (09:49→21:07)
[2016-10-09] MEDS: AMIODARONE HCL 200 MG TAB PO SCH ×2 (09:49→21:07)
[2016-10-09] MEDS: VANCOMYCIN 125 MG/2.5 ML UDL PO SCH ×2 (09:49→21:16)
[2016-10-09] MEDS: guaiFENesin 600 MG TAB.ER PO SCH ×2 (09:49→21:06)
[2016-10-09] MEDS: CARVEDILOL 6.25 MG TAB PO SCH ×2 (09:50→19:40)
[2016-10-09] MEDS: CALCIUM ACETATE 667 MG CAP PO SCH ×3 (09:51→19:40)
[2016-10-09] MEDS: LEVALBUTEROL 1.25 MG/3 ML DEYVIAL IH PRN ×3 (10:06→21:24)
[2016-10-09] MEDS: Mometasone/Formoterol [Dulera 200 Mcg/5 Mcg Inhaler] IH SCH ×2 (10:07→21:24)
[2016-10-09] MEDS: LEVALBUTEROL INHALER 200 PUFFS/15 GM MDI IH SCH ×2 (10:07→21:24)
--- NOTE | 2016-10-09 11:56 | SOAPPROG ---
SOAP Progress Note Assessment/Plan: Assessment: ESRD recurrent pneumonia cachexia Plan: HD today D/W pulm, no bronch planned ABX per ID encouraged nutrition encouraged up and around with help 10/08/16 15:42 10/09/16 11:54 Subjective: up to the chair SOB about the same no cp appetite still not gerat, energy poor has a visitor today Objective: Vital Signs Temp Pulse Resp BP Pulse Ox 36.8 C 76 18 124/59 H 94 10/09/16 07:46 10/09/16 09:50 10/09/16 09:50 10/09/16 07:46 10/09/16 07:46 Microbiology 10/07/16 15:27 Gram Stain - Final Thoracic Fluid - Aspirate 10/07/16 16:20 - Final Sputum, Expectorated Laboratory Results 10/08/16 04:42 10/09/16 05:24 10/08/16 10/09/16 10/10/16 05:59 05:59 05:59 Intake Total 940 404 Balance 940 404 PT 15.3 SEC (12.0-15.0) H 10/07/16 17:10 INR 1.21 (0.83-1.16) H 10/07/16 17:10 Physical Exam - Physical Exam General Appearance: alert, cachetic Respiratory: rales, rhonchi, wheezing Cardiac/Chest: regular rate, rhythm, edema, No friction rub Abdomen: normal bowel sounds, non-tender, soft Extremities: pedal edema Neuro/Psych: alert, oriented x 3 ICD10 Worksheet Patient Problems: Problems Problem Status Onset Pulmonary edema Acute Acute hyponatremia Acute Anemia Acute C. difficile diarrhea Acute ~06/18/16 CHF (congestive heart failure) Acute Chronic Disease Mgmt/Transitional Care Acute Chronic Disease Mgmt/Transitional Care Acute Chronic pneumonia Acute Chronic renal failure Acute Dehydration Acute Dialysis complication Acute ESBL (extended spectrum beta-lactamase) producing bacteria infection Acute Extended spectrum beta lactamase (ESBL) resistance Acute 02/28/16 Fever Acute Generalized weakness Acute History of pneumonia Acute Hypotension Acute Hypoxemia Acute Hypoxia Acute Leukocytosis Acute Lung infiltrate Acute Mitral valve replaced Acute Palliative care encounter Acute Pleural effusion Acute Pneumonia Acute Pneumonia Acute Pneumonia Acute Pneumonia due to Pseudomonas Acute Renal failure Acute Renal insufficiency Acute Renal transplant recipient Acute Sepsis Acute Severe sepsis Acute Severe sepsis Acute Shortness of breath Acute VRE (vancomycin-resistant Enterococci) Acute 01/11/16 Weakness Acute Weakness Acute
--- NOTE | 2016-10-09 12:14 | PDINTPN ---
Associate Art Director Progress Note Assessment/Plan: Assessment/plan: * Pneumonia-Markedly improved -continue current antibiotics - no need for bronchoscopy * Pleural effusion-status post thoracentesis. This is transudative in nature. * Acute respiratory failure secondary to pneumonia-markedly improved with reduction in his oxygen requirements * End-stage renal disease-on dialysis * Immunoglobulin deficiency * Pulmonary hypertension Subjective: feels markedly better. Cough is more improved. He is less breathless. Objective: Vital Signs Temp Pulse Resp BP Pulse Ox 36.8 C 76 18 124/59 H 94 10/09/16 07:46 10/09/16 09:50 10/09/16 09:50 10/09/16 07:46 10/09/16 07:46 Microbiology 10/07/16 15:27 Gram Stain - Final Thoracic Fluid - Aspirate 10/07/16 16:20 - Final Sputum, Expectorated Laboratory Results 10/08/16 04:42 10/09/16 05:24 10/08/16 10/09/16 10/10/16 05:59 05:59 05:59 Intake Total 940 404 Balance 940 404 PT 15.3 SEC (12.0-15.0) H 10/07/16 17:10 INR 1.21 (0.83-1.16) H 10/07/16 17:10 Physical Exam - Physical Exam General Appearance: alert, no apparent distress EENT: PERRL/EOMI, normal ENT inspection Neck: non-tender, full range of motion, supple, normal inspection Respiratory: crackles ( Bibasilar), No respiratory distress, No stridor, No wheezing Cardiac/Chest: normal peripheral pulses, regular rate, rhythm Peripheral Pulses: 2+: carotid (R), carotid (L), femoral (R), femoral (L), dorsalis-pedis (R), dorsalis-pedis (L) Abdomen: normal bowel sounds, non-tender, soft Male Genitalia: deferred Skin: normal color, warm/dry ICD10 Worksheet Patient Problems: Problems Problem Status Onset Pulmonary edema Acute Acute hyponatremia Acute Anemia Acute C. difficile diarrhea Acute ~06/18/16 CHF (congestive heart failure) Acute Chronic Disease Mgmt/Transitional Care Acute Chronic Disease Mgmt/Transitional Care Acute Chronic pneumonia Acute Chronic renal failure Acute Dehydration Acute Dialysis complication Acute ESBL (extended spectrum beta-lactamase) producing bacteria infection Acute Extended spectrum beta lactamase (ESBL) resistance Acute 02/28/16 Fever Acute Generalized weakness Acute History of pneumonia Acute Hypotension Acute Hypoxemia Acute Hypoxia Acute Leukocytosis Acute Lung infiltrate Acute Mitral valve replaced Acute Palliative care encounter Acute Pleural effusion Acute Pneumonia Acute Pneumonia Acute Pneumonia Acute Pneumonia due to Pseudomonas Acute Renal failure Acute Renal insufficiency Acute Renal transplant recipient Acute Sepsis Acute Severe sepsis Acute Severe sepsis Acute Shortness of breath Acute VRE (vancomycin-resistant Enterococci) Acute 01/11/16 Weakness Acute Weakness Acute
[2016-10-09] MEDS ORDERED: PHENYLEPHRINE 0.5% NASAL 15 ML SPRAY EACHNARE PRN (14:32)
--- NOTE | 2016-10-09 17:53 | HOSPPROG ---
Hospitalist Progress Note Assessment/Plan: Acute on chronic hypoxemic respiratory failure secondary to recurrent PNA and bronchiectasis - Admit CT showed b/l effusions (R>L) and worsening opacities in right lung, ?aspiration. This is a recurring problem for Mr. Kaye and he has had multiple infectious organisms in past including pseudomonas, ESBL E coli, VRE. BCx's and pleural fluid Cx NGTD, GNR's on sputum Cx. Also considered central line infection with dialysis catheter, though findings more c/w PNA. -Cont Zosyn and Vanc per ID recs -Await organism ID and sensitivities -speech / swallow eval ordered, but pt refusing because he doesn't want to be placed on thickened liquids or restricted diet -cont inh tobramycin for bronchiectasis -pulmonary following, deferring bronchoscopy for now given clinical improvement B/L pleural effusions R>L - thoracentesis done, fluid is transudative, likely secondary to volume overload in setting of ESRD. ESRD 2/2 polycystic kidney - HD per renal -renal diet -renally dosed medications H/O C diff - cont po vanc while on broad spectrum atbx Anemia - in setting of CKD. 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 H/O bioprosthetic mitral valve Full code DVT PPLX - PHILLY Dispo - cont inpt. Discussed end stage lung dz with pt, he is agreeable to palliative care consult, but states he still wants full tx. What complicates this is that he refuses a swallow evaluation and refuses to take thickened liquids if that's what recommended. I advised him it is incongruent to not follow aspiration precautions but continue aggressive tx for recurrent asp PNA. If he wishes for full, "recreational" diet, should consider comfort measures. He will need SNF. Subjective: Pt feels better. Having a small amount of bleeding from nose with O2 by nasal cannula. This is not persistent. No fevers. Still coughing a bit. He is worried about what we are calling his dry weight. Refusing swallow eval. Objective: Vital Signs Temp Pulse Resp BP Pulse Ox 36.8 C 68 12 124/59 H 97 10/09/16 07:46 10/09/16 17:10 10/09/16 17:10 10/09/16 07:46 10/09/16 17:10 Microbiology 10/07/16 15:27 Gram Stain - Final Thoracic Fluid - Aspirate 10/07/16 16:20 - Final Sputum, Expectorated Laboratory Results 10/08/16 04:42 10/09/16 05:24 10/08/16 10/09/16 10/10/16 05:59 05:59 05:59 Intake Total 940 404 Balance 940 404 PT 15.3 SEC (12.0-15.0) H 10/07/16 17:10 INR 1.21 (0.83-1.16) H 10/07/16 17:10 - Physical Exam Constitutional: chronically ill appearing Eyes: PERRL Ears, Nose, Mouth, Throat: moist mucous membranes Cardiovascular: regular rate and rhythym Respiratory: no respiratory distress, reduced air movement, inspiratory crackles Gastrointestinal: normoactive bowel sounds, soft, non-tender abdomen Skin: warm Musculoskeletal: generalized weakness Neurologic: AAOx3 Psychiatric: interacting appropriately ICD10 Worksheet Patient Problems: Problems Problem Status Onset Pulmonary edema Acute Acute hyponatremia Acute Anemia Acute C. difficile diarrhea Acute ~06/18/16 CHF (congestive heart failure) Acute Chronic Disease Mgmt/Transitional Care Acute Chronic Disease Mgmt/Transitional Care Acute Chronic pneumonia Acute Chronic renal failure Acute Dehydration Acute Dialysis complication Acute ESBL (extended spectrum beta-lactamase) producing bacteria infection Acute Extended spectrum beta lactamase (ESBL) resistance Acute 02/28/16 Fever Acute Generalized weakness Acute History of pneumonia Acute Hypotension Acute Hypoxemia Acute Hypoxia Acute Leukocytosis Acute Lung infiltrate Acute Mitral valve replaced Acute Palliative care encounter Acute Pleural effusion Acute Pneumonia Acute Pneumonia Acute Pneumonia Acute Pneumonia due to Pseudomonas Acute Renal failure Acute Renal insufficiency Acute Renal transplant recipient Acute Sepsis Acute Severe sepsis Acute Severe sepsis Acute Shortness of breath Acute VRE (vancomycin-resistant Enterococci) Acute 01/11/16 Weakness Acute Weakness Acute
[2016-10-09] MEDS: MONTELUKAST SODIUM 10 MG TAB PO SCH (19:40)
[2016-10-09] MEDS ORDERED: HEPARIN 50,000 UNIT/10 ML VIAL ONE (19:47)
[2016-10-09] MEDS: traZODone 50 MG TAB PO PRN (21:16)
[2016-10-09] MEDS: TIOTROPIUM INHALER 18 MCG/DOSE 5 DOSE/MDI IH SCH (21:52)
[2016-10-10 04:49] LABS: HEMATOCRIT 31.1 % (40.0-51.0); HEMOGLOBIN 9.7 g/dL (13.7-17.5); MEAN CELL HEMOGLOBIN 28.4 pg (27.9-34.1); MEAN CELL HEMOGLOBIN CONCENTR. 31.2 g/dL (32.4-36.7); MEAN CELL VOLUME 91.2 fL (81.5-99.8); RED BLOOD CELL COUNT 3.41 10^6/uL (4.40-6.38); RED CELL DISTRIBUTION WIDTH 16.4 % (11.5-15.2)
[2016-10-10 05:02] LABS: ALBUMIN 2.1 g/dL (3.5-5.0); ANION GAP 9 mEq/L (8-16); CALCIUM 7.7 mg/dL (8.5-10.4); CARBON DIOXIDE 28 mEq/l (22-31); CHLORIDE 99 mEq/L (97-110); CREATININE 3.1 mg/dL (0.7-1.3); GLOMERULAR FILTRATION RATE 20; GLUCOSE 89 mg/dL (70-100); POTASSIUM 4.1 mEq/L (3.5-5.2); SODIUM 136 mEq/L (134-144)
[2016-10-10] MEDS: PIPERACILLIN/TAZO 2.25 GM/DEX 50 ML IV SCH ×4 (05:06→22:37)
[2016-10-10] MEDS: guaiFENesin 600 MG TAB.ER PO SCH ×2 (10:04→20:58)
[2016-10-10] MEDS: hydrOXYzine HCL 25 MG TAB PO SCH ×2 (10:04→20:59)
[2016-10-10] MEDS: CALCIUM ACETATE 667 MG CAP PO SCH ×3 (10:04→19:11)
[2016-10-10] MEDS: AMIODARONE HCL 200 MG TAB PO SCH ×2 (10:04→20:59)
[2016-10-10] MEDS: CARVEDILOL 6.25 MG TAB PO SCH ×2 (10:04→19:11)
[2016-10-10] MEDS: VANCOMYCIN 125 MG/2.5 ML UDL PO SCH ×2 (10:04→21:01)
[2016-10-10] MEDS: LEVALBUTEROL INHALER 200 PUFFS/15 GM MDI IH SCH ×2 (11:08→21:37)
[2016-10-10] MEDS: Mometasone/Formoterol [Dulera 200 Mcg/5 Mcg Inhaler] IH SCH (11:08)
[2016-10-10] MEDS: LEVALBUTEROL 1.25 MG/3 ML DEYVIAL IH PRN (11:08)
--- NOTE | 2016-10-10 12:04 | SOAPPROG ---
SOAP Progress Note Assessment/Plan: Assessment: ESRD recurrent pneumonia cachexia Plan: HD tomorrow D/W pulm, no bronch planned ABX per ID encouraged nutrition encouraged up and around with help if he needs a PICC for buttermaker abx, OK with me 10/08/16 15:42 10/09/16 11:54 10/10/16 12:00 Subjective: tired today IV giving him some problems, considering PICC fatigue no cp, SOB better today, still with sputum appetite down a bit as well Objective: Vital Signs Temp Pulse Resp BP Pulse Ox 36.9 C 62 22 H 107/49 L 99 10/10/16 11:56 10/10/16 11:56 10/10/16 11:56 10/10/16 11:56 10/10/16 11:56 Microbiology 10/07/16 15:27 Gram Stain - Final Thoracic Fluid - Aspirate 10/07/16 16:20 - Final Sputum, Expectorated Laboratory Results 10/10/16 04:34 10/10/16 04:34 10/09/16 10/10/16 10/11/16 05:59 05:59 05:59 Intake Total 404 Balance 404 PT 15.3 SEC (12.0-15.0) H 10/07/16 17:10 INR 1.21 (0.83-1.16) H 10/07/16 17:10 Physical Exam - Physical Exam General Appearance: cachetic Respiratory: rales, rhonchi Cardiac/Chest: regular rate, rhythm, No edema, No friction rub Abdomen: normal bowel sounds, non-tender Extremities: No pedal edema Neuro/Psych: alert, oriented x 3 ICD10 Worksheet Patient Problems: Problems Problem Status Onset Pulmonary edema Acute Acute hyponatremia Acute Anemia Acute C. difficile diarrhea Acute ~06/18/16 CHF (congestive heart failure) Acute Chronic Disease Mgmt/Transitional Care Acute Chronic Disease Mgmt/Transitional Care Acute Chronic pneumonia Acute Chronic renal failure Acute Dehydration Acute Dialysis complication Acute ESBL (extended spectrum beta-lactamase) producing bacteria infection Acute Extended spectrum beta lactamase (ESBL) resistance Acute 02/28/16 Fever Acute Generalized weakness Acute History of pneumonia Acute Hypotension Acute Hypoxemia Acute Hypoxia Acute Leukocytosis Acute Lung infiltrate Acute Mitral valve replaced Acute Palliative care encounter Acute Pleural effusion Acute Pneumonia Acute Pneumonia Acute Pneumonia Acute Pneumonia due to Pseudomonas Acute Renal failure Acute Renal insufficiency Acute Renal transplant recipient Acute Sepsis Acute Severe sepsis Acute Severe sepsis Acute Shortness of breath Acute VRE (vancomycin-resistant Enterococci) Acute 01/11/16 Weakness Acute Weakness Acute
[2016-10-10] MEDS ORDERED: ALTEPLASE 2 MG VIAL IVP PRN (12:18)
[2016-10-10] MEDS ORDERED: IMMUNE GLOBULIN IV ONE (15:15)
[2016-10-10] MEDS ORDERED: [UNRECOGNIZED DRUG - OTHER] IV ONE (15:15)
--- NOTE | 2016-10-10 15:59 | PCMIDPN ---
Assessment/Plan: # Bronchiectasis with recurrent pneumonia with MDR organisms, resp status improved on Zosyn, CXR reviewed and still quite abnormal. NLF GNR suggests PsA. Still requiring 4L O2 which is up from baseline 2-3L --continue renal dose zosyn - may have to change for low platelets --likely needs IV antibiotics to complete Rx of PNA, PICC line placed today # Transudative pleural effusion with elevated eosinophils # IgG deficiency - IgG level 664, dose Gamunex today # marked debilitation: Patient desires continued with aggressive treatment of his multiple medical problems. Cortisol normal. Also checked testosterone # thrombocytopenia: continues to decline, may have to consider zosyn as etiology # ESRD : patient desires to change outpatient HD unit # H/o Cdiff on suppressive PO vancomycin. Diarrhea resolved. medication Zosyn 2.25 g IV Q 8, #3 vancomycin 125mg PO BID vancomycin on 10/07 1 g x1 microbiology 10/06 blood cultures 2 sets no growth today 10/07 sputum culture : NLF GNR and LF GNR, id pending 10/07 pleural fluid: NGTD Subjective: patient does not want to be in contact isolation feels very tired Objective: Vital Signs Temp Pulse Resp BP Pulse Ox 36.9 C 62 22 H 107/49 L 99 10/10/16 11:56 10/10/16 11:56 10/10/16 11:56 10/10/16 11:56 10/10/16 11:56 Microbiology 10/07/16 15:27 Gram Stain - Final Thoracic Fluid - Aspirate Body Fluid Culture - Final 10/07/16 16:20 - Final Sputum, Expectorated Laboratory Results 10/10/16 04:34 10/10/16 04:34 10/09/16 10/10/16 10/11/16 05:59 05:59 05:59 Intake Total 404 Balance 404 - Physical Exam General Appearance: alert, no apparent distress, cachetic EENT: No thrush Respiratory: bronchial breath sounds (left), No accessory muscle use Cardiac/Chest: regular rate, rhythm, systolic murmur Extremities: No pedal edema Abdomen: non-tender, soft Skin: pallor, No rash Neuro/Psych: alert, normal mood/affect, oriented x 3 - Line/s LUE PICC Lines: No drainage, No erythema - Time Spent With Patient Time Spent with Patient: greater than 35 minutes Time Spent with Patient: Greater than 35 minutes spent on this patients care, greater than 50% of time spent counseling, educating, and coordinating care regarding the above mentioned plan. ICD10 Worksheet Patient Problems: Problems Problem Status Onset Pulmonary edema Acute Acute hyponatremia Acute Anemia Acute C. difficile diarrhea Acute ~06/18/16 CHF (congestive heart failure) Acute Chronic Disease Mgmt/Transitional Care Acute Chronic Disease Mgmt/Transitional Care Acute Chronic pneumonia Acute Chronic renal failure Acute Dehydration Acute Dialysis complication Acute ESBL (extended spectrum beta-lactamase) producing bacteria infection Acute Extended spectrum beta lactamase (ESBL) resistance Acute 02/28/16 Fever Acute Generalized weakness Acute History of pneumonia Acute Hypotension Acute Hypoxemia Acute Hypoxia Acute Leukocytosis Acute Lung infiltrate Acute Mitral valve replaced Acute Palliative care encounter Acute Pleural effusion Acute Pneumonia Acute Pneumonia Acute Pneumonia Acute Pneumonia due to Pseudomonas Acute Renal failure Acute Renal insufficiency Acute Renal transplant recipient Acute Sepsis Acute Severe sepsis Acute Severe sepsis Acute Shortness of breath Acute VRE (vancomycin-resistant Enterococci) Acute 01/11/16 Weakness Acute Weakness Acute
[2016-10-10] MEDS: traMADol 50 MG TAB PO PRN ×2 (16:01→22:07)
--- NOTE | 2016-10-10 16:17 | HOSPPROG ---
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 - failed kidney transplant -stable on HD * h/o Cdiff -PO Vanco while on broad abx * IgG deficiency -IgG low - redose Gamunex * h/o bioprosthetic MV * Afib -amiodarone, coreg -tolerated anticoagulation poorly Subjective: NO complaint other than weakness Objective: Vital Signs Temp Pulse Resp BP Pulse Ox 36.9 C 62 22 H 107/49 L 99 10/10/16 11:56 10/10/16 11:56 10/10/16 11:56 10/10/16 11:56 10/10/16 11:56 Microbiology 10/07/16 15:27 Gram Stain - Final Thoracic Fluid - Aspirate Body Fluid Culture - Final 10/07/16 16:20 - Final Sputum, Expectorated Laboratory Results 10/10/16 04:34 10/10/16 04:34 10/09/16 10/10/16 10/11/16 05:59 05:59 05:59 Intake Total 404 Balance 404 PT 15.3 SEC (12.0-15.0) H 10/07/16 17:10 INR 1.21 (0.83-1.16) H 10/07/16 17:10 d/w Dr. Daniel - redose Gamunex now okay CT chest - dense consolidation right lung - Physical Exam Constitutional: no apparent distress, appears nourished, not in pain Cardiovascular: regular rate and rhythym, no murmur, rub, or gallop Respiratory: no respiratory distress, no rales or rhonchi, clear to auscultation Gastrointestinal: normoactive bowel sounds, soft, non-tender abdomen, no palpable masses Skin: no rashes or abrasions, no fluctuance, no induration Neurologic: AAOx3, sensation intact bilaterally Psychiatric: interacting appropriately, not anxious, not encephalopathic, thought process linear ICD10 Worksheet Patient Problems: Problems Problem Status Onset Pulmonary edema Acute Acute hyponatremia Acute Anemia Acute C. difficile diarrhea Acute ~06/18/16 CHF (congestive heart failure) Acute Chronic Disease Mgmt/Transitional Care Acute Chronic Disease Mgmt/Transitional Care Acute Chronic pneumonia Acute Chronic renal failure Acute Dehydration Acute Dialysis complication Acute ESBL (extended spectrum beta-lactamase) producing bacteria infection Acute Extended spectrum beta lactamase (ESBL) resistance Acute 02/28/16 Fever Acute Generalized weakness Acute History of pneumonia Acute Hypotension Acute Hypoxemia Acute Hypoxia Acute Leukocytosis Acute Lung infiltrate Acute Mitral valve replaced Acute Palliative care encounter Acute Pleural effusion Acute Pneumonia Acute Pneumonia Acute Pneumonia Acute Pneumonia due to Pseudomonas Acute Renal failure Acute Renal insufficiency Acute Renal transplant recipient Acute Sepsis Acute Severe sepsis Acute Severe sepsis Acute Shortness of breath Acute VRE (vancomycin-resistant Enterococci) Acute 01/11/16 Weakness Acute Weakness Acute
[2016-10-10] MEDS: MONTELUKAST SODIUM 10 MG TAB PO SCH (17:06)
[2016-10-10] MEDS: traZODone 50 MG TAB PO PRN (20:59)
[2016-10-10] MEDS: TIOTROPIUM INHALER 18 MCG/DOSE 5 DOSE/MDI IH SCH (21:43)
[2016-10-11] MEDS: ACETAMINOPHEN 325 MG TAB PO PRN (00:15)
[2016-10-11] MEDS: Mometasone/Formoterol [Dulera 200 Mcg/5 Mcg Inhaler] IH SCH ×3 (02:10→21:55)
[2016-10-11] MEDS: PIPERACILLIN/TAZO 2.25 GM/DEX 50 ML IV SCH (05:08)
[2016-10-11 05:14] LABS: % IMMATURE GRANULYOCYTES 0.2 % (0.0-1.1); ABSOLUTE IMMATURE GRANULOCYTES 0.01 10^3/uL (0.00-0.10); ADD DIFF? NO; ADD MORPH? NO; ADD SCAN? NO; ATYPICAL LYMPHOCYTE FLAG 20 (0-99); FRAGMENT RBC FLAG 0 (0-99); HEMATOCRIT 28.4 % (40.0-51.0); HEMOGLOBIN 8.9 g/dL (13.7-17.5); LEFT SHIFT FLG 0 (0-99); LIPEMIA HEMOLYSIS FLAG 80 (0-99); MEAN CELL HEMOGLOBIN 28.7 pg (27.9-34.1); MEAN CELL HEMOGLOBIN CONCENTR. 31.3 g/dL (32.4-36.7); MEAN CELL VOLUME 91.6 fL (81.5-99.8); MEAN PLATELET VOLUME 11.2 fL (8.7-11.7); PLATELET CLUMPS FLAG 0 (0-99); RED CELL DISTRIBUTION WIDTH 16.3 % (11.5-15.2)
[2016-10-11 05:18] LABS: PLATELET COUNT 47 10^3/uL (150-400)
[2016-10-11 05:24] LABS: ANION GAP 10 mEq/L (8-16); CALCIUM 7.5 mg/dL (8.5-10.4); CARBON DIOXIDE 25 mEq/l (22-31); CHLORIDE 96 mEq/L (97-110); CREATININE 4.1 mg/dL (0.7-1.3); GLOMERULAR FILTRATION RATE 15; GLUCOSE 75 mg/dL (70-100); POTASSIUM 4.4 mEq/L (3.5-5.2); SODIUM 131 mEq/L (134-144)
[2016-10-11 06:05] LABS: PLATELET ESTIMATE DECREASED (ADEQ)
[2016-10-11] MEDS: CALCIUM ACETATE 667 MG CAP PO SCH ×4 (10:09→17:53)
[2016-10-11] MEDS: CARVEDILOL 6.25 MG TAB PO SCH ×2 (10:09→17:40)
[2016-10-11] MEDS: hydrOXYzine HCL 25 MG TAB PO SCH ×2 (10:11→20:22)
[2016-10-11] MEDS: guaiFENesin 600 MG TAB.ER PO SCH ×2 (10:13→20:22)
[2016-10-11] MEDS: AMIODARONE HCL 200 MG TAB PO SCH ×2 (10:14→20:22)
[2016-10-11] MEDS: VANCOMYCIN 125 MG/2.5 ML UDL PO SCH ×2 (10:14→20:22)
[2016-10-11] MEDS: traMADol 50 MG TAB PO PRN ×2 (10:19→16:03)
[2016-10-11] MEDS: LEVALBUTEROL 1.25 MG/3 ML DEYVIAL IH PRN ×2 (10:38→21:52)
--- NOTE | 2016-10-11 10:41 | HOSPPROG ---
Hospitalist Progress Note Assessment/Plan: * Acute on chronic respiratory failure - baseline 2L -increased SOB overnight - recheck CXR -patient requests bronch - has helped in past - mucus plugging -d/w Dr. Magdaleno -continue CPT vest/EZ pap/guaifenesin * Bronchiectasis with recurrent PNA - MDR organisms -IV Zosyn -d/w Dr. 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 - failed kidney transplant -stable on HD * h/o Cdiff -PO Vanco while on broad abx * IgG deficiency -IgG low - s/p redose Gamunex * h/o bioprosthetic MV * Afib -amiodarone, coreg -tolerates anticoagulation poorly * Severe protein calorie malnutrition - BMI 16 * Thrombocytopenia -per ID may need to change abx away from Zosyn -no SubQ heparin since 10/07 * Borderline am cortisol -check kavitha stim in am Subjective: Increased SOB last night Objective: Vital Signs Temp Pulse Resp BP Pulse Ox 36.4 C 60 20 132/71 H 98 10/11/16 08:00 10/11/16 10:09 10/11/16 08:00 10/11/16 10:09 10/11/16 08:00 Microbiology 10/07/16 16:20 - Final Sputum, Expectorated 10/07/16 15:27 Gram Stain - Final Thoracic Fluid - Aspirate Body Fluid Culture - Final Laboratory Results 10/11/16 04:58 10/11/16 04:58 10/10/16 10/11/16 10/12/16 05:59 05:59 05:59 Intake Total 1230 Balance 1230 PT 15.3 SEC (12.0-15.0) H 10/07/16 17:10 INR 1.21 (0.83-1.16) H 10/07/16 17:10 - Physical Exam Constitutional: no apparent distress, appears nourished, not in pain Cardiovascular: regular rate and rhythym, no murmur, rub, or gallop Respiratory: no respiratory distress, no rales or rhonchi, clear to auscultation Gastrointestinal: normoactive bowel sounds, soft, non-tender abdomen, no palpable masses Skin: no rashes or abrasions, no fluctuance, no induration Neurologic: AAOx3, sensation intact bilaterally Psychiatric: interacting appropriately, not anxious, not encephalopathic, thought process linear ICD10 Worksheet Patient Problems: Problems Problem Status Onset Pulmonary edema Acute Acute hyponatremia Acute Anemia Acute C. difficile diarrhea Acute ~06/18/16 CHF (congestive heart failure) Acute Chronic Disease Mgmt/Transitional Care Acute Chronic Disease Mgmt/Transitional Care Acute Chronic pneumonia Acute Chronic renal failure Acute Dehydration Acute Dialysis complication Acute ESBL (extended spectrum beta-lactamase) producing bacteria infection Acute Extended spectrum beta lactamase (ESBL) resistance Acute 02/28/16 Fever Acute Generalized weakness Acute History of pneumonia Acute Hypotension Acute Hypoxemia Acute Hypoxia Acute Leukocytosis Acute Lung infiltrate Acute Mitral valve replaced Acute Palliative care encounter Acute Pleural effusion Acute Pneumonia Acute Pneumonia Acute Pneumonia Acute Pneumonia due to Pseudomonas Acute Renal failure Acute Renal insufficiency Acute Renal transplant recipient Acute Sepsis Acute Severe sepsis Acute Severe sepsis Acute Shortness of breath Acute VRE (vancomycin-resistant Enterococci) Acute 01/11/16 Weakness Acute Weakness Acute
--- NOTE | 2016-10-11 11:22 | SOAPPROG ---
SOAP Progress Note Assessment/Plan: Assessment/Plan: ESRD; on HD MWF. - Will do HD today per routine h/o renal transplant; for polycystic kidney disease, now transplant failed and on HD, off all IS. Anemia: Hgb 8.9, will give epo today. Hyponatremia: Na 131, will modulate on HD. Subjective: No acute events overnight. Pt states he is no longer having fevers but breathing still feels somewhat constricted. Objective: Vital Signs Temp Pulse Resp BP Pulse Ox 36.4 C 60 20 132/71 H 98 10/11/16 08:00 10/11/16 10:09 10/11/16 08:00 10/11/16 10:09 10/11/16 08:00 Microbiology 10/07/16 16:20 - Final Sputum, Expectorated 10/07/16 15:27 Gram Stain - Final Thoracic Fluid - Aspirate Body Fluid Culture - Final Laboratory Results 10/11/16 04:58 10/11/16 04:58 10/10/16 10/11/16 10/12/16 05:59 05:59 05:59 Intake Total 1230 Balance 1230 PT 15.3 SEC (12.0-15.0) H 10/07/16 17:10 INR 1.21 (0.83-1.16) H 10/07/16 17:10 General: alert and oriented, no acute distress Eyes; EOMI, PERRL OP: clear CV: RRR Resp: nonlabored respirations on NC Abd: Soft, NT Ext; no edema BLE neuro: CN II-XII grossly intact, no asterixis Psych; cooperative, appropriate mood and affect Access: R IJ tunneled catheter ICD10 Worksheet Patient Problems: Problems Problem Status Onset Pulmonary edema Acute Acute hyponatremia Acute Anemia Acute C. difficile diarrhea Acute ~06/18/16 CHF (congestive heart failure) Acute Chronic Disease Mgmt/Transitional Care Acute Chronic Disease Mgmt/Transitional Care Acute Chronic pneumonia Acute Chronic renal failure Acute Dehydration Acute Dialysis complication Acute ESBL (extended spectrum beta-lactamase) producing bacteria infection Acute Extended spectrum beta lactamase (ESBL) resistance Acute 02/28/16 Fever Acute Generalized weakness Acute History of pneumonia Acute Hypotension Acute Hypoxemia Acute Hypoxia Acute Leukocytosis Acute Lung infiltrate Acute Mitral valve replaced Acute Palliative care encounter Acute Pleural effusion Acute Pneumonia Acute Pneumonia Acute Pneumonia Acute Pneumonia due to Pseudomonas Acute Renal failure Acute Renal insufficiency Acute Renal transplant recipient Acute Sepsis Acute Severe sepsis Acute Severe sepsis Acute Shortness of breath Acute VRE (vancomycin-resistant Enterococci) Acute 01/11/16 Weakness Acute Weakness Acute
[2016-10-11] MEDS: LEVALBUTEROL INHALER 200 PUFFS/15 GM MDI IH SCH ×2 (11:24→21:52)
[2016-10-11] MEDS ORDERED: EPOETIN ALFA 10,000 UNIT/ML VIAL SC ONE (11:30)
--- NOTE | 2016-10-11 12:53 | SOAPPROG ---
SOAP Progress Note Assessment/Plan: Assessment/plan: * Pneumonia-Markedly improved -continue current antibiotics -chest x-ray pending -will add Mucomyst nebs * Pleural effusion-status post thoracentesis. This is transudative in nature. * Acute respiratory failure secondary to pneumonia-markedly improved with reduction in his oxygen requirements * End-stage renal disease-on dialysis * Immunoglobulin deficiency * Pulmonary hypertension Subjective: On dialysis. Feels tired. Breathlessness has improved from yesterday evening. He admits to minimal cough and no production of sputum. Objective: Vital Signs Temp Pulse Resp BP Pulse Ox 36.4 C 68 19 132/71 H 98 10/11/16 08:00 10/11/16 12:10 10/11/16 12:10 10/11/16 10:09 10/11/16 12:10 Microbiology 10/07/16 16:20 - Final Sputum, Expectorated 10/07/16 15:27 Gram Stain - Final Thoracic Fluid - Aspirate Body Fluid Culture - Final Laboratory Results 10/11/16 04:58 10/11/16 04:58 10/10/16 10/11/16 10/12/16 05:59 05:59 05:59 Intake Total 1230 Balance 1230 PT 15.3 SEC (12.0-15.0) H 10/07/16 17:10 INR 1.21 (0.83-1.16) H 10/07/16 17:10 Physical Exam - Physical Exam General Appearance: WD/WN, alert EENT: PERRL/EOMI, normal ENT inspection, pharynx normal, TMs normal Neck: non-tender, full range of motion, supple, normal inspection Respiratory: chest non-tender, crackles (Few), No normal breath sounds, No respiratory distress Cardiac/Chest: normal peripheral pulses, regular rate, rhythm Peripheral Pulses: 2+: carotid (R), carotid (L), femoral (R), femoral (L), dorsalis-pedis (R), dorsalis-pedis (L) Abdomen: normal bowel sounds, non-tender, soft Male Genitalia: deferred Rectal: deferred Skin: normal color, warm/dry Extremities: normal range of motion, non-tender, normal inspection, normal capillary refill Neuro/Psych: no motor/sensory deficits, alert, normal mood/affect, oriented x 3 ICD10 Worksheet Patient Problems: Problems Problem Status Onset Pulmonary edema Acute Acute hyponatremia Acute Anemia Acute C. difficile diarrhea Acute ~06/18/16 CHF (congestive heart failure) Acute Chronic Disease Mgmt/Transitional Care Acute Chronic Disease Mgmt/Transitional Care Acute Chronic pneumonia Acute Chronic renal failure Acute Dehydration Acute Dialysis complication Acute ESBL (extended spectrum beta-lactamase) producing bacteria infection Acute Extended spectrum beta lactamase (ESBL) resistance Acute 02/28/16 Fever Acute Generalized weakness Acute History of pneumonia Acute Hypotension Acute Hypoxemia Acute Hypoxia Acute Leukocytosis Acute Lung infiltrate Acute Mitral valve replaced Acute Palliative care encounter Acute Pleural effusion Acute Pneumonia Acute Pneumonia Acute Pneumonia Acute Pneumonia due to Pseudomonas Acute Renal failure Acute Renal insufficiency Acute Renal transplant recipient Acute Sepsis Acute Severe sepsis Acute Severe sepsis Acute Shortness of breath Acute VRE (vancomycin-resistant Enterococci) Acute 01/11/16 Weakness Acute Weakness Acute
--- NOTE | 2016-10-11 15:37 | PCMIDPN ---
Assessment/Plan: # Bronchiectasis with recurrent pneumonia with MDR organisms, worsening malaise today, drug reaction or untreated presumed ESBL E coli. O2 sat stable at 4L above baseline requirement of 2L --change to renal dose aztreonam aztreonam --await susceptibilities, if persistent malaise after off zosyn couple days, consider adding coverage of E coli # Possible Drug Reaction with thrombocytopenia + worsening malaise --dc zosyn today --daily CBC # IgG deficiency - IgG level 664, dose Gamunex yesterday # marked debilitation: Patient desires continued with aggressive treatment of his multiple medical problems. Cortisol normal. Also checked testosterone # ESRD : patient desires to change outpatient HD unit # H/o Cdiff on suppressive PO vancomycin. Couple loose BM/day, not worsening # Transudative pleural effusion with elevated eosinophils medication Zosyn 2.25 g IV Q 8, #4 vancomycin 125mg PO BID vancomycin on 10/07 1 g x1 microbiology 10/06 blood cultures 2 sets no growth today 10/07 sputum culture : E coli, PsA 10/07 pleural fluid: NGTD Subjective: patient feels worse today coughing a base line 1 loose BM today no itching or rash Objective: Vital Signs Temp Pulse Resp BP Pulse Ox 36.4 C 68 19 132/71 H 98 10/11/16 08:00 10/11/16 12:10 10/11/16 12:10 10/11/16 10:09 10/11/16 12:10 Microbiology 10/07/16 16:20 - Final Sputum, Expectorated 10/07/16 15:27 Gram Stain - Final Thoracic Fluid - Aspirate Body Fluid Culture - Final Laboratory Results 10/11/16 04:58 10/11/16 04:58 10/10/16 10/11/16 10/12/16 05:59 05:59 05:59 Intake Total 1230 240 Balance 1230 240 General Appearance: alert, no apparent distress, cachetic EENT: No thrush Respiratory: crackles L base Cardiac/Chest: regular rate, rhythm, systolic murmur Extremities: No pedal edema Abdomen: non-tender, soft Skin: pallor, No rash Neuro/Psych: alert, normal mood/affect, oriented x 3 LUE PICC: No drainage, No erythema R Mckoy c/d/i ICD10 Worksheet Patient Problems: Problems Problem Status Onset Pulmonary edema Acute Acute hyponatremia Acute Anemia Acute C. difficile diarrhea Acute ~06/18/16 CHF (congestive heart failure) Acute Chronic Disease Mgmt/Transitional Care Acute Chronic Disease Mgmt/Transitional Care Acute Chronic pneumonia Acute Chronic renal failure Acute Dehydration Acute Dialysis complication Acute ESBL (extended spectrum beta-lactamase) producing bacteria infection Acute Extended spectrum beta lactamase (ESBL) resistance Acute 02/28/16 Fever Acute Generalized weakness Acute History of pneumonia Acute Hypotension Acute Hypoxemia Acute Hypoxia Acute Leukocytosis Acute Lung infiltrate Acute Mitral valve replaced Acute Palliative care encounter Acute Pleural effusion Acute Pneumonia Acute Pneumonia Acute Pneumonia Acute Pneumonia due to Pseudomonas Acute Renal failure Acute Renal insufficiency Acute Renal transplant recipient Acute Sepsis Acute Severe sepsis Acute Severe sepsis Acute Shortness of breath Acute VRE (vancomycin-resistant Enterococci) Acute 01/11/16 Weakness Acute Weakness Acute
[2016-10-11] MEDS: AZTREONAM 0.5 GM in NS 50 ML IV SCH ×2 (15:38→22:09)
[2016-10-11] MEDS: ACETYLCYSTEINE 10% 30 ML VIAL IH SCH ×2 (17:01→21:51)
[2016-10-11] MEDS: MONTELUKAST SODIUM 10 MG TAB PO SCH (17:40)
[2016-10-11] MEDS ORDERED: HEPARIN 50,000 UNIT/10 ML VIAL ONE (18:32)
[2016-10-11] MEDS: TIOTROPIUM INHALER 18 MCG/DOSE 5 DOSE/MDI IH SCH (21:55)
[2016-10-11] MEDS: traZODone 50 MG TAB PO PRN (22:09)
[2016-10-12] MEDS: AZTREONAM 0.5 GM in NS 50 ML IV SCH (05:41)
[2016-10-12] MEDS: ACETAMINOPHEN 325 MG TAB PO PRN ×2 (05:51→18:31)
[2016-10-12 05:53] LABS: % IMMATURE GRANULYOCYTES 0.4 % (0.0-1.1); ABSOLUTE IMMATURE GRANULOCYTES 0.03 10^3/uL (0.00-0.10); ADD DIFF? NO; ADD MORPH? NO; ADD SCAN? NO; ATYPICAL LYMPHOCYTE FLAG 0 (0-99); FRAGMENT RBC FLAG 0 (0-99); HEMOGLOBIN 10.1 g/dL (13.7-17.5); LEFT SHIFT FLG 0 (0-99); LIPEMIA HEMOLYSIS FLAG 80 (0-99); MEAN CELL HEMOGLOBIN 28.9 pg (27.9-34.1); MEAN CELL HEMOGLOBIN CONCENTR. 31.6 g/dL (32.4-36.7); MEAN CELL VOLUME 91.7 fL (81.5-99.8); MEAN PLATELET VOLUME 10.4 fL (8.7-11.7); PLATELET CLUMPS FLAG 0 (0-99); PLATELET COUNT 55 10^3/uL (150-400); RED BLOOD CELL COUNT 3.49 10^6/uL (4.40-6.38); RED CELL DISTRIBUTION WIDTH 16.5 % (11.5-15.2)
[2016-10-12] MEDS ORDERED: COSYNTROPIN 0.25 MG/2 ML SYRINGE IVP ONE (06:00)
[2016-10-12] MEDS: ACETYLCYSTEINE 10% 30 ML VIAL IH SCH ×3 (06:04→20:38)
[2016-10-12] MEDS: LEVALBUTEROL 1.25 MG/3 ML DEYVIAL IH PRN ×2 (06:05→20:38)
[2016-10-12 06:10] LABS: ANION GAP 10 mEq/L (8-16); CALCIUM 7.7 mg/dL (8.5-10.4); CARBON DIOXIDE 25 mEq/l (22-31); CHLORIDE 96 mEq/L (97-110); GLOMERULAR FILTRATION RATE 21; SODIUM 131 mEq/L (134-144)
[2016-10-12 06:35] LABS: GLUCOSE 31 mg/dL (70-100)
[2016-10-12 06:39] LABS: CORTISOL-AM 7.2 ug/dL (4.5-22.7)
[2016-10-12] MEDS: Mometasone/Formoterol [Dulera 200 Mcg/5 Mcg Inhaler] IH SCH ×2 (09:38→22:20)
[2016-10-12] MEDS: LEVALBUTEROL INHALER 200 PUFFS/15 GM MDI IH SCH ×2 (09:38→22:18)
[2016-10-12] MEDS: hydrOXYzine HCL 25 MG TAB PO SCH ×2 (10:20→22:27)
[2016-10-12] MEDS: VANCOMYCIN 125 MG/2.5 ML UDL PO SCH ×2 (10:20→22:27)
[2016-10-12] MEDS: CALCIUM ACETATE 667 MG CAP PO SCH ×3 (10:21→18:32)
[2016-10-12] MEDS: guaiFENesin 600 MG TAB.ER PO SCH ×2 (10:23→22:27)
[2016-10-12] MEDS: AMIODARONE HCL 200 MG TAB PO SCH ×2 (10:23→22:27)
[2016-10-12] MEDS: CARVEDILOL 6.25 MG TAB PO SCH ×2 (10:48→18:32)
--- NOTE | 2016-10-12 12:08 | PCMIDPN ---
Assessment/Plan: Assessment/Plan: 1.Bronchiectasis with worsening pulmonary infiltrates: - pneumonia vs pulm edema - Cx with PsA and ESBL E. coli - Called micro: PsA is resistant to Aztreonam. I have asked them to report out results. -I have requested that specimen be sent to [place] for Colistin and possibly Tigecycline susceptibilities to help with future options. -Currenlty on aztreonam. Will change to Cefepime renally dosed. - monitor labs closely -CXr done yesterday reviewed, shows improvement. 2. Hx of c. diff: - on suppressive po vanco 3. ESRD on HD Meds aztreonam 10/11/16- 10/12/16 s/p zosyn 10/07/16-10/11/16 Subjective: afebrile. Still with malaise and doesn't feel well. Doesn't feel worse than yesterday , however. Was on 5L o2 via nc at time of my visit. Denies darline shortness of breath at present. Occasionally dry cough, worse when he lays down. Unable to bring up phlegm. Loose stools yesterday, about 2 x. NOne so far today. denies abd pain. Objective: Vital Signs Temp Pulse Resp BP Pulse Ox 36.6 C 69 14 116/65 100 10/12/16 11:25 10/12/16 11:25 10/12/16 11:25 10/12/16 11:25 10/12/16 11:25 Microbiology 10/07/16 16:20 - Final Sputum, Expectorated Sputum Culture - Final Escherichia Coli Esbl Pseudomonas Aeruginosa 10/06/16 21:50 Blood Culture - Final Blood Laboratory Results 10/12/16 05:30 10/12/16 05:30 10/11/16 10/12/16 10/13/16 05:59 05:59 05:59 Intake Total 1230 640 166 Balance 1230 640 166 - Physical Exam General Appearance: alert, no apparent distress, other (flat affect) Respiratory: coarse breath sounds Cardiac/Chest: regular rate, rhythm Extremities: No swelling Abdomen: normal bowel sounds, non-tender, soft, No distended Skin: No erythema ICD10 Worksheet Patient Problems: Problems Problem Status Onset Pulmonary edema Acute Acute hyponatremia Acute Anemia Acute C. difficile diarrhea Acute ~06/18/16 CHF (congestive heart failure) Acute Chronic Disease Mgmt/Transitional Care Acute Chronic Disease Mgmt/Transitional Care Acute Chronic pneumonia Acute Chronic renal failure Acute Dehydration Acute Dialysis complication Acute ESBL (extended spectrum beta-lactamase) producing bacteria infection Acute Extended spectrum beta lactamase (ESBL) resistance Acute 02/28/16 Fever Acute Generalized weakness Acute History of pneumonia Acute Hypotension Acute Hypoxemia Acute Hypoxia Acute Leukocytosis Acute Lung infiltrate Acute Mitral valve replaced Acute Palliative care encounter Acute Pleural effusion Acute Pneumonia Acute Pneumonia Acute Pneumonia Acute Pneumonia due to Pseudomonas Acute Renal failure Acute Renal insufficiency Acute Renal transplant recipient Acute Sepsis Acute Severe sepsis Acute Severe sepsis Acute Shortness of breath Acute VRE (vancomycin-resistant Enterococci) Acute 01/11/16 Weakness Acute Weakness Acute
--- NOTE | 2016-10-12 12:23 | SOAPPROG ---
SOAP Progress Note Assessment/Plan: Assessment: 1. ESRD; on HD MWF. -Next HD Friday per routine -Pt wants his EDW adjusted to 55kg 2. h/o renal transplant; for polycystic kidney disease, now transplant failed and on HD, off all IS. 3. Anemia: Hgb at ESRD goal, rec'd Epo 10/11 4. Hyponatremia: May improve with increased solute intake, will also adjust dialysate to improve Plan: 10/12/16 12:20 10/12/16 12:23 10/12/16 12:23 Subjective: Feels better today. Appetite improving. Objective: Vital Signs Temp Pulse Resp BP Pulse Ox 36.6 C 69 14 116/65 100 10/12/16 11:25 10/12/16 11:25 10/12/16 11:25 10/12/16 11:25 10/12/16 11:25 Microbiology 10/07/16 16:20 - Final Sputum, Expectorated Sputum Culture - Final Escherichia Coli Esbl Pseudomonas Aeruginosa 10/06/16 21:50 Blood Culture - Final Blood Laboratory Results 10/12/16 05:30 10/12/16 05:30 10/11/16 10/12/16 10/13/16 05:59 05:59 05:59 Intake Total 1230 640 166 Balance 1230 640 166 PT 15.3 SEC (12.0-15.0) H 10/07/16 17:10 INR 1.21 (0.83-1.16) H 10/07/16 17:10 Physical Exam - Physical Exam General Appearance: WD/WN Neck: other (R IJ TDC in place) Respiratory: lungs clear Cardiac/Chest: regular rate, rhythm Abdomen: non-tender Extremities: No swelling ICD10 Worksheet Patient Problems: Problems Problem Status Onset Pulmonary edema Acute Acute hyponatremia Acute Anemia Acute C. difficile diarrhea Acute ~06/18/16 CHF (congestive heart failure) Acute Chronic Disease Mgmt/Transitional Care Acute Chronic Disease Mgmt/Transitional Care Acute Chronic pneumonia Acute Chronic renal failure Acute Dehydration Acute Dialysis complication Acute ESBL (extended spectrum beta-lactamase) producing bacteria infection Acute Extended spectrum beta lactamase (ESBL) resistance Acute 02/28/16 Fever Acute Generalized weakness Acute History of pneumonia Acute Hypotension Acute Hypoxemia Acute Hypoxia Acute Leukocytosis Acute Lung infiltrate Acute Mitral valve replaced Acute Palliative care encounter Acute Pleural effusion Acute Pneumonia Acute Pneumonia Acute Pneumonia Acute Pneumonia due to Pseudomonas Acute Renal failure Acute Renal insufficiency Acute Renal transplant recipient Acute Sepsis Acute Severe sepsis Acute Severe sepsis Acute Shortness of breath Acute VRE (vancomycin-resistant Enterococci) Acute 01/11/16 Weakness Acute Weakness Acute
[2016-10-12 13:21] LABS: TESTOSTERONE TOTAL <7.0 ng/dL (240-950)
--- NOTE | 2016-10-12 13:49 | SOAPPROG ---
SOAP Progress Note Assessment/Plan: Assessment/plan: * Bronchiectasis- clinically unchanged. Pseudomonas resistant. - continue aggressive pulmonary toilet - antibiotics per Infectious Disease * Pleural effusion-status post thoracentesis. This is transudative in nature. * Acute respiratory failure secondary to pneumonia-markedly improved with reduction in his oxygen requirements * End-stage renal disease-on dialysis * Immunoglobulin deficiency * Pulmonary hypertension Subjective: resting comfortably. Breathlessness and cough for unchanged. Objective: Vital Signs Temp Pulse Resp BP Pulse Ox 36.6 C 69 14 116/65 100 10/12/16 11:25 10/12/16 11:25 10/12/16 11:25 10/12/16 11:25 10/12/16 11:25 Microbiology 10/07/16 16:20 - Final Sputum, Expectorated Sputum Culture - Final Escherichia Coli Esbl Pseudomonas Aeruginosa 10/06/16 21:50 Blood Culture - Final Blood Laboratory Results 10/12/16 05:30 10/12/16 05:30 10/11/16 10/12/16 10/13/16 05:59 05:59 05:59 Intake Total 1230 640 166 Balance 1230 640 166 PT 15.3 SEC (12.0-15.0) H 10/07/16 17:10 INR 1.21 (0.83-1.16) H 10/07/16 17:10 Physical Exam - Physical Exam General Appearance: alert, no apparent distress, cachetic EENT: PERRL/EOMI, normal ENT inspection, pharynx normal, TMs normal Neck: non-tender, full range of motion, supple, normal inspection Respiratory: crackles ( Few), No normal breath sounds, No wheezing Cardiac/Chest: normal peripheral pulses, regular rate, rhythm Peripheral Pulses: 2+: carotid (R), carotid (L), femoral (R), femoral (L), dorsalis-pedis (R), dorsalis-pedis (L) Abdomen: normal bowel sounds, non-tender, soft Male Genitalia: deferred Rectal: deferred Skin: normal color, warm/dry Extremities: normal range of motion, non-tender, normal inspection, normal capillary refill Neuro/Psych: alert ICD10 Worksheet Patient Problems: Problems Problem Status Onset Pulmonary edema Acute Acute hyponatremia Acute Anemia Acute C. difficile diarrhea Acute ~06/18/16 CHF (congestive heart failure) Acute Chronic Disease Mgmt/Transitional Care Acute Chronic Disease Mgmt/Transitional Care Acute Chronic pneumonia Acute Chronic renal failure Acute Dehydration Acute Dialysis complication Acute ESBL (extended spectrum beta-lactamase) producing bacteria infection Acute Extended spectrum beta lactamase (ESBL) resistance Acute 02/28/16 Fever Acute Generalized weakness Acute History of pneumonia Acute Hypotension Acute Hypoxemia Acute Hypoxia Acute Leukocytosis Acute Lung infiltrate Acute Mitral valve replaced Acute Palliative care encounter Acute Pleural effusion Acute Pneumonia Acute Pneumonia Acute Pneumonia Acute Pneumonia due to Pseudomonas Acute Renal failure Acute Renal insufficiency Acute Renal transplant recipient Acute Sepsis Acute Severe sepsis Acute Severe sepsis Acute Shortness of breath Acute VRE (vancomycin-resistant Enterococci) Acute 01/11/16 Weakness Acute Weakness Acute
[2016-10-12] MEDS ORDERED: CEFEPIME HCL 1 GM in D5W 50 ML IV SCH (14:00)
[2016-10-12] MEDS: SODIUM CL NASAL 45 ML BTL EACHNARE PRN ×2 (14:50→18:35)
--- NOTE | 2016-10-12 17:22 | HOSPPROG ---
Hospitalist Progress Note Assessment/Plan: The patient is a male with PMH IgG deficiency, end-stage renal disease, atrial fibrillation, bioprosthetic mitral valve who was admitted for acute on chronic respiratory failure and found to have pneumonia secondary to multidrug resistant organisms. ASSESSMENT/PLAN: Acute on chronic respiratory failure Pneumonia with MDR Pseudomonas and E Coli Pleural effusion, status post thoracentesis Possible aspiration Pulm HTN End-stage renal disease secondary to polycystic kidney disease History of failed kidney transplant, on HD MWF History of C diff infection IgG deficiency History of bioprosthetic mitral valve H/o paroxysmal atrial fibrillation Severe protein calorie malnutrition Thrombocytopenia Hypoglycemia -Specialists: Nephro, ID, Pulm - appreciate recs. -standard cosyntropin stim test performed w/ 0.25mg IV - AM cortisol increased at 30min post injection, but no values from 1hr post injection was checked. Equivocal result. -Monitor blood sugar, not on insulin, hypoglycemia protocol. -IV antimicrobials. Organism is resistant to aztreonam. ID looking into colistin, tigecycline. -EzPAP, oxygen, breathing treatments. -Pt refuses swallow eval or modified diet. -Heparin DC'd 10/07. -HD MWF. VTE prophylaxis: add SCDs. Code Status: Full code Status: Inpatient for greater than 2 midnight stay. Disposition: [facility] ____ SUBJECTIVE: Today patient feels okay. He feels like he is breathing slightly better, still has congestion. Breathing is worse when he lies down to sleep. OBJECTIVE: Physical Exam: General: The patient is a male who is alert and in no acute distress. HEENT: normocephalic, extraocular movements intact, conjunctivae clear. Mucous membranes moist. Neck: trachea midline, no visible masses. CV: +S1/S2, RRR, no MRG. Resp: unlabored, CTAB + mild wheezing. Abd: soft and nondistended. Bowel sounds present. Musculoskeletal: Normal muscle tone/bulk. Neuro: cranial nerves II XII grossly intact. Intact gross motor and sensory function. Psych: Appropriate and appropriate affect. Skin: Mild pallor. No petechiae. +dialysis catheter in right chest. Heme/lymph: No peripheral edema at bilateral lower legs. Labs/Imaging/Other Tests: Personally reviewed/interpreted. Objective: Vital Signs Temp Pulse Resp BP Pulse Ox 36.3 C 59 L 16 126/61 H 100 08/05/17 16:00 10/12/16 16:00 10/12/16 16:00 10/12/16 16:00 10/12/16 16:00 Microbiology 10/07/16 16:20 - Final Sputum, Expectorated 10/06/16 21:50 Blood Culture - Final Blood Laboratory Results 10/12/16 05:30 10/12/16 05:30 10/11/16 10/12/16 10/13/16 05:59 05:59 05:59 Intake Total 1230 640 166 Balance 1230 640 166 PT 15.3 SEC (12.0-15.0) H 10/07/16 17:10 INR 1.21 (0.83-1.16) H 10/07/16 17:10 ICD10 Worksheet Patient Problems: Problems Problem Status Onset Pulmonary edema Acute Acute hyponatremia Acute Anemia Acute C. difficile diarrhea Acute ~06/18/16 CHF (congestive heart failure) Acute Chronic Disease Mgmt/Transitional Care Acute Chronic Disease Mgmt/Transitional Care Acute Chronic pneumonia Acute Chronic renal failure Acute Dehydration Acute Dialysis complication Acute ESBL (extended spectrum beta-lactamase) producing bacteria infection Acute Extended spectrum beta lactamase (ESBL) resistance Acute 02/28/16 Fever Acute Generalized weakness Acute History of pneumonia Acute Hypotension Acute Hypoxemia Acute Hypoxia Acute Leukocytosis Acute Lung infiltrate Acute Mitral valve replaced Acute Palliative care encounter Acute Pleural effusion Acute Pneumonia Acute Pneumonia Acute Pneumonia Acute Pneumonia due to Pseudomonas Acute Renal failure Acute Renal insufficiency Acute Renal transplant recipient Acute Sepsis Acute Severe sepsis Acute Severe sepsis Acute Shortness of breath Acute VRE (vancomycin-resistant Enterococci) Acute 01/11/16 Weakness Acute Weakness Acute
[2016-10-12] MEDS ORDERED: D50W 25 GM/50 ML SYR IVP PRN (18:44)
[2016-10-12] MEDS: traMADol 50 MG TAB PO PRN (19:33)
[2016-10-12] MEDS: MONTELUKAST SODIUM 10 MG TAB PO SCH (19:33)
[2016-10-12] MEDS: TIOTROPIUM INHALER 18 MCG/DOSE 5 DOSE/MDI IH SCH (20:39)
[2016-10-12] MEDS: traZODone 50 MG TAB PO PRN (22:26)
[2016-10-13] MEDS: ACETYLCYSTEINE 10% 30 ML VIAL IH SCH ×3 (00:29→13:07)
[2016-10-13] MEDS: LEVALBUTEROL 1.25 MG/3 ML DEYVIAL IH PRN ×2 (05:45→13:07)
[2016-10-13 06:02] LABS: % IMMATURE GRANULYOCYTES 0.2 % (0.0-1.1); ABSOLUTE IMMATURE GRANULOCYTES 0.01 10^3/uL (0.00-0.10); ADD DIFF? NO; ADD MORPH? NO; ADD SCAN? NO; ATYPICAL LYMPHOCYTE FLAG 0 (0-99); FRAGMENT RBC FLAG 0 (0-99); HEMATOCRIT 29.1 % (40.0-51.0); LEFT SHIFT FLG 0 (0-99); LIPEMIA HEMOLYSIS FLAG 80 (0-99); MEAN CELL HEMOGLOBIN 28.4 pg (27.9-34.1); MEAN CELL HEMOGLOBIN CONCENTR. 30.9 g/dL (32.4-36.7); MEAN CELL VOLUME 91.8 fL (81.5-99.8); MEAN PLATELET VOLUME 10.4 fL (8.7-11.7); PLATELET CLUMPS FLAG 0 (0-99); PLATELET COUNT 59 10^3/uL (150-400); RED BLOOD CELL COUNT 3.17 10^6/uL (4.40-6.38); RED CELL DISTRIBUTION WIDTH 16.1 % (11.5-15.2)
[2016-10-13 06:41] LABS: ANION GAP 6 mEq/L (8-16); CALCIUM 8.1 mg/dL (8.5-10.4); CARBON DIOXIDE 27 mEq/l (22-31); CHLORIDE 95 mEq/L (97-110); CREATININE 4.3 mg/dL (0.7-1.3); GLOMERULAR FILTRATION RATE 14; GLUCOSE 89 mg/dL (70-100); POTASSIUM 4.9 mEq/L (3.5-5.2); SODIUM 128 mEq/L (134-144)
[2016-10-13] MEDS: Mometasone/Formoterol [Dulera 200 Mcg/5 Mcg Inhaler] IH SCH (09:35)
[2016-10-13] MEDS: CARVEDILOL 6.25 MG TAB PO SCH (10:34)
[2016-10-13] MEDS: guaiFENesin 600 MG TAB.ER PO SCH (10:34)
[2016-10-13] MEDS: AMIODARONE HCL 200 MG TAB PO SCH (10:36)
[2016-10-13] MEDS: hydrOXYzine HCL 25 MG TAB PO SCH (10:36)
[2016-10-13] MEDS: VANCOMYCIN 125 MG/2.5 ML UDL PO SCH (10:36)
[2016-10-13] MEDS: SODIUM CL NASAL 45 ML BTL EACHNARE PRN (10:39)
[2016-10-13] MEDS: CALCIUM ACETATE 667 MG CAP PO SCH ×2 (10:43→14:27)
[2016-10-13] MEDS: ONDANSETRON DISINTEGRATING 4 MG TAB PO PRN (11:19)
[2016-10-13 11:39] VITALS: BP 115/61; PULSE 64; TEMP 98.2
--- NOTE | 2016-10-13 12:55 | PCMIDPN ---
Assessment/Plan: Assessment/Plan: 1.Bronchiectasis with worsening pulmonary infiltrates: - pneumonia vs pulm edema - Cx with PsA and ESBL E. coli - Called micro: PsA is resistant to Aztreonam. I have asked them to report out results. -I have requested that specimen be sent to [place] for Colistin and possibly Tigecycline susceptibilities to help with future options. -Now on Cefepime renally dosed. - monitor labs closely -CXr done yesterday reviewed, shows improvement. -Will plan for tentative 14 days total for above, longer is not improving as expected. -pt has f/u with Dr. Daniel on 10/17/16 at 11:30am. l -Will fill out interagency. -care coordinated with hospitalist team 2. Hx of c. diff: - on suppressive po vanco. Continue with this while on antibiotics for above. 3. ESRD on HD Meds cefepime 1g daily s/p aztreonam 10/11/16- 10/12/16 s/p zosyn 10/07/16-10/11/16 Subjective: afebrile. still feels weak but better than two days ago. less cough. dry cough. shortness of breath mostly if he lays down. no loose stools yesterday. Objective: Vital Signs Temp Pulse Resp BP Pulse Ox 36.8 C 64 16 115/61 100 10/13/16 11:38 10/13/16 11:38 10/13/16 11:38 10/13/16 11:38 10/13/16 11:38 Microbiology 10/07/16 16:20 - Final Sputum, Expectorated 10/06/16 21:50 Blood Culture - Final Blood Laboratory Results 10/13/16 05:20 10/13/16 05:20 10/12/16 10/13/16 10/14/16 05:59 05:59 05:59 Intake Total 640 1066 Output Total 400 Balance 640 666 - Physical Exam General Appearance: alert, no apparent distress EENT: No thrush Respiratory: coarse breath sounds (mild) Cardiac/Chest: regular rate, rhythm Extremities: No swelling Abdomen: normal bowel sounds, non-tender, soft, No distended Skin: No erythema ICD10 Worksheet Patient Problems: Problems Problem Status Onset Pulmonary edema Acute Acute hyponatremia Acute Anemia Acute C. difficile diarrhea Acute ~06/18/16 CHF (congestive heart failure) Acute Chronic Disease Mgmt/Transitional Care Acute Chronic Disease Mgmt/Transitional Care Acute Chronic pneumonia Acute Chronic renal failure Acute Dehydration Acute Dialysis complication Acute ESBL (extended spectrum beta-lactamase) producing bacteria infection Acute Extended spectrum beta lactamase (ESBL) resistance Acute 02/28/16 Fever Acute Generalized weakness Acute History of pneumonia Acute Hypotension Acute Hypoxemia Acute Hypoxia Acute Leukocytosis Acute Lung infiltrate Acute Mitral valve replaced Acute Palliative care encounter Acute Pleural effusion Acute Pneumonia Acute Pneumonia Acute Pneumonia Acute Pneumonia due to Pseudomonas Acute Renal failure Acute Renal insufficiency Acute Renal transplant recipient Acute Sepsis Acute Severe sepsis Acute Severe sepsis Acute Shortness of breath Acute VRE (vancomycin-resistant Enterococci) Acute 01/11/16 Weakness Acute Weakness Acute
--- NOTE | 2016-10-13 12:57 | PDIAF ---
- Diagnosis Diagnosis: Pneumonia with PsA Code Status: Full Code - Medication Management Discharge Medications: Medications to Continue on Transfer Amiodarone HCl [Pacerone (*)] 200 mg PO BID 06/27/16 [Last Taken 10/06/16 08:00] Calcium Acetate [Phoslo (*)] 667 mg PO TIDMEAL 06/27/16 [Last Taken 10/06/16 12: 00] Carvedilol [Coreg (*)] 6.25 mg PO BIDMEAL 06/27/16 [Last Taken 10/06/16] Mometasone/Formoterol [Dulera 200 Mcg/5 Mcg Inhaler] 2 puffs IH BID 06/27/16 [ Last Taken 10/06/16] Tiotropium Inhaler [Spiriva Handihaler] 18 mcg IH HS 06/27/16 [Last Taken ] guaiFENesin [Mucinex 600 MG (*)] 600 mg PO BID 06/27/16 [Last Taken 10/06/16] hydrOXYzine HCL [hydrOXYzine HCL (RX)] 25 mg PO BID 06/27/16 [Last Taken ] traZODone [traZODONE 50MG (*)] 25 mg PO HS PRN 06/27/16 [Last Taken 10/05/16] Cholecalciferol Vit D3 [Vitamin D3 (*)] 2,000 units PO DAILY 08/05/16 [Last Taken 10/06/16] Darbepoetin Cas in Polysorbat [Aranesp] 200 mcg IJ AD 08/05/16 [Last Taken 11/24] Levalbuterol 1.25 mg [Xopenex 1.25MG Neb (*)] 1.25 mg IH Q8H PRN 08/05/16 [Last Taken Unknown] Levalbuterol Tartrate [Levalbuterol Tartrate Hfa] 2 puffs IH BID 08/05/16 [Last Taken 08/18/16 08:00] Montelukast Sodium [Singulair 10 mg (*)] 10 mg PO DAILY@1800 08/05/16 [Last Taken 10/05/16] Acetaminophen [Tylenol 325mg (*)] 650 mg PO Q4HRS PRN #0 tab 08/09/16 [Last Taken 10/03/16] traMADol [Ultram 50 mg (*)] 50 mg PO Q6 PRN #40 tab 08/09/16 [Last Taken ] Tobramycin/Nebulizer [Tobramycin Celestine 300 mg/5 ml] 300 mg IH 10/06/16 [Last Taken Unknown] Halfway Antibiotics: cefepime 1g IV daily Checker Antibiotic Stop Date: 10/21/16 Discharge Medications: Refer to the Discharge Home Medication list for PRN reason. PICC Care - Routine: Yes - Labs/Radiology CBC Date: 10/14/16 (q mondays) CMP Date: 10/14/16 (q mondays) Call or Fax Lab and Imaging Results to: fax to Dr. Daniel [phone] - Follow Up Care Current Providers and Referrals: Janelle Daniel MD [Primary Care Provider] - 10/17/16 11:30 am (f/u with Dr. Daniel on 10/17/16 at 11:30am. Check in time is: 11:10am. thanks. )
--- NOTE | 2016-10-13 13:04 | WOCRNPDOC ---
WOCRN Advanced Assessment Note - Skin Integrity Problem, Advanced Assess Coccyx Dressing Type: Open to Air Exudate Amount: None Exudate Characteristic(s): None Beth Wound Tissue: Blanching, Erythema, Intact Beth Wound Swelling: None Wound Bed Color: Red Skin Integrity Problem Comment: Received consult request r/t erythema over patient's coccyx. Upon assessment, there is a dry, flaky area to the right of patient's coccyx, w/ blanching erythema throughout. Skin is intact, and patient denies any prior wound to this site. He does, however, report that a previous facility applied barrier cream to this area. Given his low BMI, and the existing erythema, pressure-relieving precautions should be followed. bottom crane operator Alexia placed a pressure-relieving cushion in his chair on 10/12, and this intervention should continue. In addition, Accu-max pump is being added to his bed and a BID order for dimethicone to protect skin. No need for wound care to follow ongoing, and nursing is advised to reconsult as needed.
[2016-10-13 13:39] VITALS: RESP 14; O2SAT 98
[2016-10-13] MEDS: LEVALBUTEROL INHALER 200 PUFFS/15 GM MDI IH SCH (13:39)
--- NOTE | 2016-10-13 14:00 | PDDCSUM ---
Discharge Summary Discharge Summary: Date of Admission: [] Date of Discharge: [] Discharge Diagnoses: [] Admission Diagnoses: [] Consultants: [] Hospital Course: [] Physical Exam: [] Condition: [] Discharged to: [] Pertinent tests/labs/imaging: [] Medications: [] Special instructions: [] Follow up: [] [</>] 30 minutes of total time was spent on counseling and coordination of care for this patient's discharge.
--- NOTE | 2016-10-13 14:52 | SOAPPROG ---
SOAP Progress Note Assessment/Plan: Assessment: 1. ESRD; on HD MWF. -Next HD Friday per routine -Pt transferring to rehab today so will f/u outpt HD 2. h/o renal transplant; for polycystic kidney disease, now transplant failed and on HD, off all IS. 3. Anemia: Hgb at ESRD goal, rec'd Epo 10/11 4. Hyponatremia: May improve with increased solute intake, will also adjust dialysate to improve Plan: 10/13/16 14:51 Subjective: Feels well. Appetite slowly improving. Objective: Vital Signs Temp Pulse Resp BP Pulse Ox 36.8 C 64 14 115/61 98 10/13/16 11:38 10/13/16 13:19 10/13/16 13:19 10/13/16 11:38 10/13/16 13:19 Microbiology 10/07/16 16:20 - Final Sputum, Expectorated Laboratory Results 10/13/16 05:20 10/13/16 05:20 10/12/16 10/13/16 10/14/16 05:59 05:59 05:59 Intake Total 640 1066 Output Total 400 Balance 640 666 PT 15.3 SEC (12.0-15.0) H 10/07/16 17:10 INR 1.21 (0.83-1.16) H 10/07/16 17:10 Physical Exam - Physical Exam General Appearance: WD/WN Respiratory: lungs clear Cardiac/Chest: regular rate, rhythm Abdomen: non-tender Extremities: No swelling ICD10 Worksheet Patient Problems: Problems Problem Status Onset Pulmonary edema Acute Acute hyponatremia Acute Anemia Acute C. difficile diarrhea Acute ~06/18/16 CHF (congestive heart failure) Acute Chronic Disease Mgmt/Transitional Care Acute Chronic Disease Mgmt/Transitional Care Acute Chronic pneumonia Acute Chronic renal failure Acute Dehydration Acute Dialysis complication Acute ESBL (extended spectrum beta-lactamase) producing bacteria infection Acute Extended spectrum beta lactamase (ESBL) resistance Acute 02/28/16 Fever Acute Generalized weakness Acute History of pneumonia Acute Hypotension Acute Hypoxemia Acute Hypoxia Acute Leukocytosis Acute Lung infiltrate Acute Mitral valve replaced Acute Palliative care encounter Acute Pleural effusion Acute Pneumonia Acute Pneumonia Acute Pneumonia Acute Pneumonia due to Pseudomonas Acute Renal failure Acute Renal insufficiency Acute Renal transplant recipient Acute Sepsis Acute Severe sepsis Acute Severe sepsis Acute Shortness of breath Acute VRE (vancomycin-resistant Enterococci) Acute 01/11/16 Weakness Acute Weakness Acute
[2016-10-13] MEDS ORDERED: CEFEPIME HCL 1 GM in D5W 50 ML IV SCH (15:00)
[2016-10-17] MEDS ORDERED: TOBRAMYCIN 300 MG/5 ML IH SCH (09:00)
== END 2016-10-13 16:26 | DRG 193 ==
LOC: OBSVTOIN 21:31 → F3E 22:02
PROVIDERS: ADMIT Internal Medicine; ATTEND Internal Medicine
PROC: 5A1D60Z (ICD-10-PCS; principal; 2016-10-07)
PROC: 0W9B3ZX Drainage of Left Pleural Cavity, Percutaneous Approach, Diagnostic (ICD-10-PCS; 2016-10-07)
PROC: 02HV33Z Insertion of Infusion Device into Superior Vena Cava, Percutaneous Approach (ICD-10-PCS; 2016-10-10)
DX: J18.9 Pneumonia, unspecified organism (principal); J96.00 Acute respiratory failure, unspecified whether with hypoxia or hypercapnia; N18.6 End stage renal disease; E43 Unspecified severe protein-calorie malnutrition; D80.3 Selective deficiency of immunoglobulin G [IgG] subclasses; I27.2 Other secondary pulmonary hypertension; Z95.3 Presence of xenogenic heart valve; Z99.2 Dependence on renal dialysis
CPT/HCPCS: 82784-90; 84402-90; 97116-GP; 97162-GP; 97165-GO; 97530-GO; 97535-GO; C1751; G8978-GP-CK; G8979-GP-CJ; G8987-GO-CI; G8988-GO-CI; J0692; J0834; J0885; J1561; J1644; J2405; J2543; J3370

== ENCOUNTER 2016-10-22 09:56 | Emergency (ER) | payer OTHER ==
--- NOTE | 2016-10-22 10:29 | CPEKG ---
Heart Rate: 65 RR Interval: 923 P-R Interval: 180 QRSD Interval: 104 QT Interval: 464 QTC Interval: 483 P [place]: 117 QRS [place]: 174 T Wave [place]: 86 EKG Severity - ABNORMAL ECG - EKG Impression: SINUS RHYTHM EKG Impression: MULTIPLE ATRIAL PREMATURE COMPLEXES EKG Impression: RIGHT AXIS DEVIATION EKG Impression: LOW VOLTAGE IN FRONTAL LEADS EKG Impression: NONSPECIFIC T ABNORMALITIES, LATERAL LEADS EKG Impression: BORDERLINE PROLONGED QT INTERVAL EKG Impression: Similar to previous Electronically Signed By: Atul Yanez 22-Oct-2016 11:21:00
--- NOTE | 2016-10-22 10:41 | EDPHY ---
H & P Stated Complaint: pt fell at rehab facility/hit head"states legs got weak" due for dialysis t Time Seen by Provider: 10/22/16 10:09 HPI/ROS: CHIEF COMPLAINT: Head injury HISTORY OF PRESENT ILLNESS: 66-year-old male with multiple comorbidities, including chronic kidney disease for which he receives dialysis, no anticoagulant use history, arrives by private vehicle from his rehabilitation facility after he was getting ready to go to his dialysis appointment, legs speaking week any hit the occiput of his head with no loss of consciousness. This was not a syncopal episode and he maintained pain consciousness the entire incident. No seizure activity. No incontinence. The snf staff told him to the ER prior to going to his dialysis appointment. He has missed his dialysis appointment at this time. He has only complaint of tenderness to the occiput of his head. REVIEW OF SYSTEMS: A ten point review of systems was performed and is negative with the exception of the items mentioned in the HPI PAST MEDICAL/SURGICAL HISTORY: Chronic kidney disease , no anticoagulant use SOCIAL HISTORY: Lives at [facility] nursing [facility] PHYSICAL EXAM 1) GENERAL: alert and oriented. Appears to be in no acute distress. Answering questions appropriately. 2) HEAD: Normocephalic, midline occiput had erythema evidence of trauma with no depression no crepitus no bleeding laceration 3) HEENT: Pupils equal, round, reactive to light bilaterally. Negative Horners. Nasopharynx, oropharynx, clear. No deformity or angulation of nose. No septal hematoma. No rhinorrhea. No oral trauma. Ears bilaterally with normal tympanic membranes. No hemotympanum. No fluid or blood in the external auditory canal. No raccoon eyes. No Schmitz sign. Teeth are normally aligned with no gross malocclusion, TMJ bilaterally nontender, facial bones nontender including the zygomatic arch, maxilla mandible. 4) NECK: No cervical collar is on. Posterior cervical spine is nontender, no stepoff, no effusion. Full range of motion which does not elicit any midline cervical spine pain, no posterior midline tenderness, no step-off. 5) LUNGS: Clear to auscultation bilaterally, no wheezes, no rhonchi, no retractions. No obvious signs of trauma. No chest wall pain. No flaring, no grunting. Moving symmetrically. No crepitus. 6) HEART: Regular rate and rhythm, 7) ABDOMEN: No guarding, no rebound, no focal tenderness, no peritoneal signs, no signs of trauma, no ecchymosis 8) MUSCULOSKELETAL: Moving all extremities, no focal areas of tenderness, no obvious trauma. 9) BACK: No midline vertebral tenderness, no fluctuance, no step-off, no obvious trauma, no visual or palpable abnormality. 10) SKIN: [ No laceration. No abrasion DIFFERENTIAL DIAGNOSIS: Not necessarily in any particular order, my differential diagnosis includes, but is not limited to, concussion, skull fracture, intraparenchymal contusion, subarachnoid, subdural and epidural hematoma. The patient understands that this diagnosis is provisional and can never be 100% accurate. - Personal History Current Tetanus/Diphtheria Vaccine: Yes Tetanus Vaccine Date: 2011 - Medical/Surgical History Hx Asthma: Yes Hx Chronic Respiratory Disease: Yes Hx Diabetes: No Hx Cardiac Disease: Yes Hx Renal Disease: Yes Hx Cirrhosis: No Hx Alcoholism: No Hx HIV/AIDS: No Hx Splenectomy or Spleen Trauma: No Other PMH: Endocarditis. MVR. AFIB. ESRD- s/p transplant 2nd to [facility]- HD 3XWK. West Nile Virus w/encephalopathy. Pulmonary HTN. IgG deficiency. Recurring PNA/Chronic Respiratory Infection - Social History Smoking Status: Never smoked Constitutional: Initial Vital Signs Temperature (C) 36.6 C 10/22/16 10:03 Heart Rate 72 10/22/16 10:03 Respiratory Rate 20 10/22/16 10:03 Blood Pressure 144/76 H 10/22/16 10:03 O2 Sat (%) 95 10/22/16 10:03 O2 Delivery Mode Room Air Allergies/Adverse Reactions: Iodinated Contrast- Oral and IV Dye [Iodinated Contrast Media - IV Dye] Allergy (Severe, Verified 08/18/16 18:28) Dyspnea meropenem Allergy (Intermediate, Verified 08/18/16 18:28) Fever piperacillin [From Zosyn] Allergy (Intermediate, Verified 10/11/16 13:20) Other-Enter Comments tazobactam [From Zosyn] Allergy (Intermediate, Verified 10/11/16 13:20) Other-Enter Comments IgA less than or equal to 50 mcg/mL [From Privigen] Allergy (Verified 08/18/16 18:28) immune globulin,gamma (IgG) human [From Privigen] Allergy (Verified 08/18/16 18: 28) proline [From Privigen] Allergy (Verified 08/18/16 18:28) IODINE CONTACT DYE Allergy (Severe, Uncoded 08/04/16 21:37) Dyspnea Home Medications: Medication Instructions Recorded Amiodarone HCl [Pacerone (*)] 200 mg PO BID 06/27/16 Calcium Acetate [Phoslo (*)] 667 mg PO TIDMEAL 06/27/16 Carvedilol [Coreg (*)] 6.25 mg PO BIDMEAL 06/27/16 Mometasone/Formoterol [Dulera 200 2 puffs IH BID 06/27/16 Mcg/5 Mcg Inhaler] Tiotropium Inhaler [Spiriva 18 mcg IH HS 06/27/16 Handihaler] guaiFENesin [Mucinex 600 MG (*)] 600 mg PO BID 06/27/16 hydrOXYzine HCL [hydrOXYzine HCL 25 mg PO BID 06/27/16 (RX)] traZODone [traZODONE 50MG (*)] 25 mg PO HS PRN 06/27/16 Cholecalciferol Vit D3 [Vitamin D3 2,000 units PO DAILY 08/05/16 (*)] Darbepoetin Cas in Polysorbat 200 mcg IJ AD 08/05/16 [Aranesp] Levalbuterol 1.25 mg [Xopenex 1.25 mg IH Q8H PRN 08/05/16 1.25MG Neb (*)] Levalbuterol Tartrate 2 puffs IH BID 08/05/16 [Levalbuterol Tartrate Hfa] Montelukast Sodium [Singulair 10 10 mg PO DAILY@1800 08/05/16 mg (*)] Acetaminophen [Tylenol 325mg (*)] 650 mg PO Q4HRS PRN #0 tab 08/09/16 traMADol [Ultram 50 mg (*)] 50 mg PO Q6 PRN #40 tab 08/09/16 Tobramycin/Nebulizer [Tobramycin 300 mg IH 10/06/16 Celestine 300 mg/5 ml] Acetylcysteine 10% [Mucomyst 10% 2 ml IH Q6HRS #0 vial 10/13/16 30 ML (*)] Alteplase [Cathflo Activase 2 mg 2 mg IVP PRN PRN #0 vial 10/13/16 (*)] Dextrose 50% Syringe 25 gm IVP PRN PRN #0 syr 10/13/16 Ondansetron HCl Pf [Zofran 4 mg 4 mg IVP Q8H PRN #0 vial 10/13/16 Inj (*)] Sodium Cl Nasal [[place] (*)] 1 spray EACHNARE PRN PRN #0 btl 10/13/16 Medical Decision Making - Diagnostics Imaging Results: Imaging Impressions Head CT 10/22/16 10:15 Impression: 1. Nothing acute identified. 2. Bilateral subdural effusions and posterior fossa atrophy likely explain the prominent subarachnoid spaces. Results called to JOVANNI Pyle. General information for patients regarding this examination can be found at [email or web address]. If you have questions or comments about this report, please contact me at (hospital) or [phone] (cell). ED Course/Re-evaluation: Head CT ordered in this patient for trauma for the following indication: greater than 65 years old[address] Case discussed Dr. Atul Yanez in the ER. Will obtain CT imaging. This is negative will have case management arranged for outpatient dialysis to occur later today as it is currently mid morning 11:50 p.m.: Re-evaluation with serial exams. The case management staff including the trimming caser that consult with the patient at his rehabilitation facility has spoke with the patient in the emergency department trimming caser. The patient's laboratory studies today indicated a normal potassium. He has missed 2 dialysis appointments. We discussed having the patient follow up with dialysis tomorrow which would put him a different schedule. Per the snf staff and per the trimming caser there are issues related to the patient getting off schedule, issues related to transportation from his snf to his dialysis center as he recently changed dialysis centers. Patient is inquiring whether he could have dialysis today. Will consult with Nephrology. 12:13 p.m.: Phone consultation with on-call retail business manager Vicente Sneed who informed me that the dialysis center is able to see the patient as long as he leaves the emergency department soon - Data Points Laboratory Results: Laboratory Results 10/22/16 10:30 10/22/16 10:30 10/22/16 10/22/16 10:30 10:30 WBC 8.31 10^3/uL 10^3/uL (3.80-9.50) RBC 3.15 10^6/uL L 10^6/uL (4.40-6.38) Hgb 9.2 g/dL L g/dL (13.7-17.5) Hct 29.4 % L % (40.0-51.0) MCV 93.3 fL fL (81.5-99.8) MCH 29.2 pg pg (27.9-34.1) MCHC 31.3 g/dL L g/dL (32.4-36.7) RDW 19.6 % H % (11.5-15.2) Plt Count 108 10^3/uL L 10^3/uL (150-400) MPV 11.1 fL fL (8.7-11.7) Neut % (Auto) 40.3 % % (39.3-74.2) Lymph % (Auto) 37.9 % % (15.0-45.0) Ramsey % (Auto) 6.0 % % (4.5-13.0) Eos % (Auto) 14.4 % H % (0.6-7.6) Baso % (Auto) 1.2 % % (0.3-1.7) Nucleat RBC Rel Count 0.0 % % (0.0-0.2) Absolute Neuts (auto) 3.34 10^3/uL 10^3/uL (1.70-6.50) Absolute Lymphs (auto) 3.15 10^3/uL H 10^3/uL (1.00-3.00) Absolute Monos (auto) 0.50 10^3/uL 10^3/uL (0.30-0.80) Absolute Eos (auto) 1.20 10^3/uL H 10^3/uL (0.03-0.40) Absolute Basos (auto) 0.10 10^3/uL 10^3/uL (0.02-0.10) Absolute Nucleated RBC 0.00 10^3/uL 10^3/uL (0-0.01) Immature Gran % 0.2 % % (0.0-1.1) Immature Gran # 0.02 10^3/uL 10^3/uL (0.00-0.10) Sodium 131 mEq/L L mEq/L (134-144) Potassium 5.1 mEq/L mEq/L (3.5-5.2) Chloride 94 mEq/L L mEq/L (97-110) Carbon Dioxide 27 mEq/l mEq/l (22-31) Anion Gap 10 mEq/L mEq/L (8-16) BUN 52 mg/dL H mg/dL (7-23) Creatinine 6.0 mg/dL H mg/dL (0.7-1.3) Estimated GFR 9 Glucose 92 mg/dL mg/dL (70-100) Calcium 8.7 mg/dL mg/dL (8.5-10.4) Medications Given: Discontinued Medications Lorazepam (Ativan) 1 mg PO EDNOW ONE Stop: 10/22/16 11:46 Last Admin: 10/22/16 11:52 Dose: 1 mg Departure - Departure Disposition: Home, Routine, Self-Care Clinical Impression: Head injury Qualifiers: Encounter type: initial encounter Qualified Code(s): S09.90XA - Unspecified injury of head, initial encounter Condition: Good Instructions: Head Injury (ED) Referrals: Go, directly to your dialysis center [Other] - As per Instructions
[2016-10-22 10:46] LABS: % IMMATURE GRANULYOCYTES 0.2 % (0.0-1.1); ABSOLUTE IMMATURE GRANULOCYTES 0.02 10^3/uL (0.00-0.10); ADD DIFF? NO; ADD MORPH? NO; ADD SCAN? NO; ATYPICAL LYMPHOCYTE FLAG 10 (0-99); FRAGMENT RBC FLAG 0 (0-99); HEMATOCRIT 29.4 % (40.0-51.0); HEMOGLOBIN 9.2 g/dL (13.7-17.5); LEFT SHIFT FLG 0 (0-99); LIPEMIA HEMOLYSIS FLAG 80 (0-99); MEAN CELL HEMOGLOBIN 29.2 pg (27.9-34.1); MEAN CELL HEMOGLOBIN CONCENTR. 31.3 g/dL (32.4-36.7); MEAN CELL VOLUME 93.3 fL (81.5-99.8); MEAN PLATELET VOLUME 11.1 fL (8.7-11.7); PLATELET CLUMPS FLAG 0 (0-99); PLATELET COUNT 108 10^3/uL (150-400); RED BLOOD CELL COUNT 3.15 10^6/uL (4.40-6.38); RED CELL DISTRIBUTION WIDTH 19.6 % (11.5-15.2)
[2016-10-22 11:03] VITALS: PULSE 68; O2SAT 97
[2016-10-22 11:09] LABS: ANION GAP 10 mEq/L (8-16); CALCIUM 8.7 mg/dL (8.5-10.4); CARBON DIOXIDE 27 mEq/l (22-31); CHLORIDE 94 mEq/L (97-110); GLOMERULAR FILTRATION RATE 9; GLUCOSE 92 mg/dL (70-100); POTASSIUM 5.1 mEq/L (3.5-5.2); SODIUM 131 mEq/L (134-144)
[2016-10-22] MEDS ORDERED: LORazepam 1 MG TAB PO ONE (11:45)
[2016-10-22 12:25] VITALS: BP 135/78; RESP 18; TEMP 97.7
== END 2016-10-22 12:44 | disposition home or self-care (01) ==
DX: S09.90XA Unspecified injury of head, initial encounter (principal); J45.909 Unspecified asthma, uncomplicated; N18.6 End stage renal disease; Z99.2 Dependence on renal dialysis; W01.198A Fall on same level from slipping, tripping and stumbling with subsequent striking against other object, initial encounter; Y92.89 Other specified places as the place of occurrence of the external cause; Y99.8 Other external cause status; Y93.89 Activity, other specified

== ENCOUNTER 2016-10-23 22:56 | Observation (INO) | payer OTHER ==
--- NOTE | 2016-10-24 00:35 | EDPHY ---
H & P Stated Complaint: INCREASED RESP DEPRESSION, END STAGE RENAL FALIURE Time Seen by Provider: 10/23/16 23:01 HPI/ROS: Chief Complaint: Shortness of breath, hypoxia HPI: 66-year-old male with very complex medical history including multi resistant polymicrobial pneumonia, end-stage renal disease on hemodialysis, chronic kidney disease, IgG deficiency, atrial fibrillation, mitral valve replacement. Patient was recently admitted and diagnosed with a multi resistant pneumonia and discharged on the to the rehab facility. Patient has since been told that it is unlikely that he will improve significantly. He he was a full resuscitation, however he has decided that he wants to be palliative and has an appoint with palliative care and 8 o'clock tomorrow morning. Patient has had worsening shortness of breath today and has worsening oxygen requirements. He is only to able to maintain his saturations with the non-rebreather 15 liters/minute. Patient was transferred from the rehab facility for further evaluation. Patient is awake alert and answering questions. His medical decision maker is also at the bedside. Denies any fevers or chills. No nausea or vomiting. Has had persistent cough. ROS: 10 point Review of Systems is negative except as noted in the HPI. PMH: Polycystic kidney disease, end-stage renal disease on hemodialysis Friday, atrial fibrillation, IgG deficiency, mitral valve replacement , multi resistant pneumonia Social History: No smoking, no alcohol, no recreational drug use Family History: non-contributory Physical Exam: Gen: Awake, Alert, mildly uncomfortable on a non-rebreather at 15 liters/minute HEENT: Nose: no rhinorrhea Eyes: PERRLA, EOMI Mouth: Moist mucosa Neck: Supple, 1+ JVD Chest: nontender, significant diminished at the bilateral bases Heart: S1, S2 normal, 3 in 6 murmur Abd: Soft, non-tender, no guarding Back: no CVA tenderness, no midline tenderness Ext: Positive edema, non-tender Skin: no rash Neuro: CN II-XII intact, Sensation grossly intact, Strength 5/5 in bilateral upper and lower extremities - Personal History Current Tetanus/Diphtheria Vaccine: Yes Current Tetanus Diphtheria and Acellular Pertussis (TDAP): Yes Tetanus Vaccine Date: 2011 - Medical/Surgical History Hx Asthma: Yes Hx Chronic Respiratory Disease: Yes Hx Diabetes: No Hx Cardiac Disease: Yes Hx Renal Disease: Yes Hx Cirrhosis: No Hx Alcoholism: No Hx HIV/AIDS: No Hx Splenectomy or Spleen Trauma: No Other PMH: Endocarditis. MVR. AFIB. ESRD- s/p transplant 2nd to [facility]- HD 3XWK. West Nile Virus w/encephalopathy. Pulmonary HTN. IgG deficiency. Recurring PNA/Chronic Respiratory Infection - Social History Smoking Status: Never smoked Constitutional: Initial Vital Signs Temperature (C) 37.0 C 10/23/16 22:57 Heart Rate 64 10/23/16 22:57 Respiratory Rate 22 H 10/23/16 22:57 Blood Pressure 116/68 10/23/16 22:57 O2 Sat (%) 98 10/23/16 22:57 O2 Delivery Mode Non-Rebreather Mask O2 (L/minute) 15 Allergies/Adverse Reactions: Iodinated Contrast- Oral and IV Dye [Iodinated Contrast Media - IV Dye] Allergy (Severe, Verified 10/23/16 23:14) Dyspnea meropenem Allergy (Intermediate, Verified 10/23/16 23:14) Fever piperacillin [From Zosyn] Allergy (Intermediate, Verified 10/23/16 23:14) Other-Enter Comments tazobactam [From Zosyn] Allergy (Intermediate, Verified 10/23/16 23:14) Other-Enter Comments IgA less than or equal to 50 mcg/mL [From Privigen] Allergy (Verified 10/23/16 23:14) immune globulin,gamma (IgG) human [From Privigen] Allergy (Verified 10/23/16 23: 14) proline [From Privigen] Allergy (Verified 10/23/16 23:14) IODINE CONTACT DYE Allergy (Severe, Uncoded 10/23/16 23:14) Dyspnea Home Medications: Medication Instructions Recorded Amiodarone HCl [Pacerone (*)] 200 mg PO BID 06/27/16 Calcium Acetate [Phoslo (*)] 667 mg PO TIDMEAL 06/27/16 Carvedilol [Coreg (*)] 6.25 mg PO BIDMEAL 06/27/16 Mometasone/Formoterol [Dulera 200 2 puffs IH BID 06/27/16 Mcg/5 Mcg Inhaler] Tiotropium Inhaler [Spiriva 18 mcg IH HS 06/27/16 Handihaler] guaiFENesin [Mucinex 600 MG (*)] 600 mg PO BID 06/27/16 hydrOXYzine HCL [hydrOXYzine HCL 25 mg PO BID 06/27/16 (RX)] traZODone [traZODONE 50MG (*)] 25 mg PO HS PRN 06/27/16 Cholecalciferol Vit D3 [Vitamin D3 2,000 units PO DAILY 08/05/16 (*)] Darbepoetin Cas in Polysorbat 200 mcg IJ AD 08/05/16 [Aranesp] Levalbuterol 1.25 mg [Xopenex 1.25 mg IH Q8H PRN 08/05/16 1.25MG Neb (*)] Levalbuterol Tartrate 2 puffs IH BID 08/05/16 [Levalbuterol Tartrate Hfa] Montelukast Sodium [Singulair 10 10 mg PO DAILY@1800 08/05/16 mg (*)] Acetaminophen [Tylenol 325mg (*)] 650 mg PO Q4HRS PRN #0 tab 08/09/16 traMADol [Ultram 50 mg (*)] 50 mg PO Q6 PRN #40 tab 08/09/16 Tobramycin/Nebulizer [Tobramycin 300 mg IH 10/06/16 Celestine 300 mg/5 ml] Acetylcysteine 10% [Mucomyst 10% 2 ml IH Q6HRS #0 vial 10/13/16 30 ML (*)] Alteplase [Cathflo Activase 2 mg 2 mg IVP PRN PRN #0 vial 10/13/16 (*)] Dextrose 50% Syringe 25 gm IVP PRN PRN #0 syr 10/13/16 Ondansetron HCl Pf [Zofran 4 mg 4 mg IVP Q8H PRN #0 vial 10/13/16 Inj (*)] Sodium Cl Nasal [[place] (*)] 1 spray EACHNARE PRN PRN #0 btl 10/13/16 Medical Decision Making ED Course/Re-evaluation: I have had a long conversation with the patient and his ex- who is his medical decision maker, healthcare proxy. Patient has an understanding from his infectious disease doctors that his condition is not likely to improve. At this point he does not want any further aggressive treatment. He wants to be made DNR comfort measures only. We have gone through the MOST form at length and he has indicated that he does not want any aggressive treatments. He understands the implications of this and that he will be kept comfortable and will likely deteriorate. Patient's healthcare proxy states that she knows him very well and believes that his decision-making is sound is consistent with his wishes. I have completed a new MOST form here indication that there is not BC p.r., he has be comfort focus treatment only, there be no artificial nutrition. This was discussed with the patient and his medical durable power non morse intercept technician was at the bedside. We have contacted [facility] facility regarding possibility of returning him there. They said they are happy taken back but will only be able to keep him on a nasal cannula there. I feel that this will be uncomfortable for him without further palliative care follow-up at this time that he would likely undergo a necessary discomfort there and would require return to the hospital. I have discussed with Dr. Landers, hospitalist. He will admit the patient to the medical floor for comfort measures and arrangements for placement and a appropriate senior living facility that will be able to keep uncomfortable. Patient does not want any further interventions therefore no diagnostic tests have been ordered at this time and I think this is appropriate. Hospitalist is in agreement with this plan as well. Departure - Departure Disposition: [facility] Inpatient Acute Clinical Impression: Shortness of breath, Renal failure, Pneumonia due to Pseudomonas, Hypoxia Condition: Fair
[2016-10-24] MEDS ORDERED: ACETAMINOPHEN 325 MG TAB PO PRN (00:39)
[2016-10-24] MEDS ORDERED: PROMETHAZINE HCL 25 MG/ML INJ IVP PRN (00:39)
[2016-10-24] MEDS ORDERED: ONDANSETRON 4 MG/2 ML VIAL IVP PRN (00:39)
[2016-10-24] MEDS ORDERED: ONDANSETRON DISINTEGRATING 4 MG TAB PO PRN (00:39)
--- NOTE | 2016-10-24 00:46 | PDGENHP ---
History and Physical - Chief Complaint Dyspnea - History of Present Illness 66 yo M with extensive PMHx including polymicrobial, MDR lung infection, ESRD 2/ 2 polycystic kidney disease, IgG deficiency, afib sent to ED from nursing facility due to dyspnea. Patient has had complicated recent course including recent admission for acute on chronic respiratory failure. Patient's ex- is at bedside. They have recently made the decision to change goals of care to comfort care only. MOST form was filled out and singed in the ED on day of admission. I confirmed personally with patient that he does not wish for any invasive measures including IV abx, NIPPV, intubation, or chest compressions. Patient would like to be treated conservatively and transition to hospice care. He came from a SNF that was not equipped for this kind of care, per conversation with ED physician. He will be admitted for comfort measures and placement. History Information - Allergies/Home Medication List Allergies/Adverse Reactions: Iodinated Contrast- Oral and IV Dye [Iodinated Contrast Media - IV Dye] Allergy (Severe, Verified 10/23/16 23:14) Dyspnea meropenem Allergy (Intermediate, Verified 10/23/16 23:14) Fever piperacillin [From Zosyn] Allergy (Intermediate, Verified 10/23/16 23:14) Other-Enter Comments tazobactam [From Zosyn] Allergy (Intermediate, Verified 10/23/16 23:14) Other-Enter Comments IgA less than or equal to 50 mcg/mL [From Privigen] Allergy (Verified 10/23/16 23:14) immune globulin,gamma (IgG) human [From Privigen] Allergy (Verified 10/23/16 23: 14) proline [From Privigen] Allergy (Verified 10/23/16 23:14) IODINE CONTACT DYE Allergy (Severe, Uncoded 10/23/16 23:14) Dyspnea Home Medications: Amiodarone HCl [Pacerone (*)] 200 mg PO BID 06/27/16 [Last Taken 10/06/16 08:00] Calcium Acetate [Phoslo (*)] 667 mg PO TIDMEAL 06/27/16 [Last Taken 10/06/16 12: 00] Carvedilol [Coreg (*)] 6.25 mg PO BIDMEAL 06/27/16 [Last Taken 10/06/16] Mometasone/Formoterol [Dulera 200 Mcg/5 Mcg Inhaler] 2 puffs IH BID 06/27/16 [ Last Taken 10/06/16] Tiotropium Inhaler [Spiriva Handihaler] 18 mcg IH HS 06/27/16 [Last Taken ] guaiFENesin [Mucinex 600 MG (*)] 600 mg PO BID 06/27/16 [Last Taken 10/06/16] hydrOXYzine HCL [hydrOXYzine HCL (RX)] 25 mg PO BID 06/27/16 [Last Taken ] traZODone [traZODONE 50MG (*)] 25 mg PO HS PRN 06/27/16 [Last Taken 10/05/16] Cholecalciferol Vit D3 [Vitamin D3 (*)] 2,000 units PO DAILY 08/05/16 [Last Taken 10/06/16] Darbepoetin Cas in Polysorbat [Aranesp] 200 mcg IJ AD 08/05/16 [Last Taken 11/24] Levalbuterol 1.25 mg [Xopenex 1.25MG Neb (*)] 1.25 mg IH Q8H PRN 08/05/16 [Last Taken Unknown] Levalbuterol Tartrate [Levalbuterol Tartrate Hfa] 2 puffs IH BID 08/05/16 [Last Taken 08/18/16 08:00] Montelukast Sodium [Singulair 10 mg (*)] 10 mg PO DAILY@1800 08/05/16 [Last Taken 10/05/16] Tobramycin/Nebulizer [Tobramycin Celestine 300 mg/5 ml] 300 mg IH 10/06/16 [Last Taken Unknown] I have personally reviewed and updated: family history, medical history - Past Medical History atrial fibrillation, ESRD, pneumonia Additional medical history: Bronchiectasis with recurrent pseudomonal pneumonia , 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 renal transplant. 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 [employer] Review of Systems ROS: 10pt was reviewed & negative except for what was stated in HPI & below Physical Exam Temp Pulse Resp BP Pulse Ox 37.0 C 60 24 H 118/68 95 10/23/16 22:57 10/24/16 00:34 10/24/16 00:34 10/24/16 00:34 10/24/16 00:34 O2 (L/minute) 15 Constitutional: chronically ill appearing, uncomfortable Eyes: PERRL, EOMI Ears, Nose, Mouth, Throat: moist mucous membranes, no oral mucosal ulcers Cardiovascular: systolic murmur, tachycardia Respiratory: reduced air movement, inspiratory crackles, respiratory distress Gastrointestinal: normoactive bowel sounds, soft, non-tender abdomen Skin: warm, normal color, other (Port R upper chest, fistula w/ palpable thril RUE) Neurologic: AAOx3, CN II-XII Intact Psychiatric: interacting appropriately, not anxious Assessment & Plan Assessment: 66 yo M with extensive PMHx presenting with acute on chronic hypoxic respiratory failure and desire for comfort care only. Plan: 1. Acute on chronic hypoxic respiratory failure - Multifactorial but recently worsened by polymicrobial MDR pneumonia. Patient with accessory muscle use on exam and requiring non-rebreather to maintain sats. He wishes for comfort measures only and specifically refuses antibiotics, NIPPV, intubation, and chest compression. Discussed case with ED physician Dr. Kuhn, who had MOST form filled out and signed this admission. - O2 for comfort - Morphine, lorazepam, zofran, phenergan PRN - Minimize monitoring and interventions - consult for hospice placement - Offered palliative care consult but patient and ex- refused at this time 2. ESRD - Does not wish to continue HD, had a limited session on day prior to admission. Diet - Regular Code - DNR Ppx - none Dispo - Admit to observation, will need hospice placement
[2016-10-24 01:12] VITALS: BP 132/73; PULSE 60; RESP 22; TEMP 98.1; O2SAT 90
[2016-10-24] MEDS: LORazepam 2 MG/ML INJ IVP PRN ×2 (01:22→02:55)
--- NOTE | 2016-10-24 03:53 | PDDCSUM ---
Discharge Summary Discharge Summary: See H&P dated 10/24/16 for details. Patient shortly after admission, H&P was addended to include details of admission and brief hospital course.
== END 2016-10-24 05:00 | disposition expired ==
LOC: EDUNIT# → F3E 10-24 01:00
PROVIDERS: ADMIT Student in an Organized Health Care Education/Training Program; ATTEND Student in an Organized Health Care Education/Training Program
DX: J96.21 Acute and chronic respiratory failure with hypoxia (principal); N18.6 End stage renal disease; J15.1 Pneumonia due to Pseudomonas; Z99.2 Dependence on renal dialysis; Q61.3 Polycystic kidney, unspecified; I48.91 Unspecified atrial fibrillation; I27.2 Other secondary pulmonary hypertension; D80.3 Selective deficiency of immunoglobulin G [IgG] subclasses; Z95.2 Presence of prosthetic heart valve; Z94.0 Kidney transplant status; Z86.19 Personal history of other infectious and parasitic diseases; Z66 Do not resuscitate
CPT/HCPCS: G0378; J2060; 96374